=== PATIENT | female | born 1935 | race Caucasian/White ===

== ENCOUNTER 2018-02-25 09:28 | Day surgery (SDC) | payer OTHER ==
[2018-02-25] MEDS ORDERED: HEPARIN 500 UNIT/5 ML SYR IV ONE (09:41)
== END 2018-02-25 10:30 | disposition home or self-care (01) ==
LOC: DS 09:28
PROVIDERS: ATTEND Internal Medicine
DX: Z45.2 Encounter for adjustment and management of vascular access device (principal); C50.919 Malignant neoplasm of unspecified site of unspecified female breast
CPT/HCPCS: 96523; J1642

== ENCOUNTER 2018-05-27 09:35 | Day surgery (SDC) | payer OTHER ==
--- OUTSIDE RECORDS SUMMARY | 2018-05-27 09:43 | XMS REPORT | Clinical Summary ---
:1935 Author Organization [facility] Address [address] [place] [address] Care Team Providers Name Role Phone Asked, No Pcp Primary Care Provider Unavailable Allergies No Known Allergies Current Medications Prescription Sig. Disp. Refills Start Date End Date Status ANASTROZOLE ORAL Take by mouth. Active diazepam (VALIUM) 5 MG Take 5 mg by mouth Active tablet every 6 (six) hours as needed for anxiety. lisinopril Take 20 mg by mouth Active (PRINIVIL,ZESTRIL) 20 MG daily. tablet metFORMIN XR Take 500 mg by mouth Active (GLUCOPHATE-XR) 500 MG daily with 24 hr tablet breakfast. simvastatin (ZOCOR) 40 Take 40 mg by mouth Active MG tablet nightly. gabapentin (NEURONTIN) Take 300 mg by mouth Active 300 MG capsule 3 (three) times a day. traMADol (ULTRAM) 50 mg Take 50 mg by mouth Active tablet every 6 (six) hours as needed for moderate pain. diltiazem CD (CardIZEM Take 240 mg by mouth Active CD) 240 MG 24 hr capsule daily. LORATADINE (CLARITIN Take by mouth. Active ORAL) ERGOCALCIFEROL, VITAMIN Take by mouth. Active D2, (VITAMIN D2 ORAL) IBUPROFEN (ADVIL ORAL) Take by mouth. Active aspirin (ECOTRIN) 81 MG Take 81 mg by mouth Active enteric coated tablet daily. simvastatin (ZOCOR) 40 TAKE 1 TABLET BY 3 02/14/2016 Active MG tablet MOUTH AT BEDTIME. anastrozole (ARIMIDEX) 1 Take 1 mg by mouth 3 03/17/2016 Active mg chemo tablet once daily. calcitonin, salmon, INHALE 1 (ONE) 0 04/02/2016 Active (MIACALCIN) 200 SOLUTION, NASAL, unit/actuation nasal DAILY. spray lisinopril-hydrochloroth Take 1 tablet by 3 02/05/2016 Active iazide mouth 2 (two) times (PRINZIDE,ZESTORETIC) a day. 20-25 mg per tablet naproxen (NAPROSYN) 500 Take 500 mg by mouth 0 03/12/2016 Active MG tablet 2 (two) times a day as needed. tramadol-acetaminophen Take 1 tablet by 0 04/02/2016 Active (ULTRACET) 37.5-325 mg mouth 3 (three) per tablet times a day as needed. Active Problems No known active problems Social History Tobacco Use Types Packs/Day Years Used Date Never Smoker Alcohol Use Drinks/Week oz/Week Comments No Sex Assigned at Date Recorded Not on file Last Filed Vital Signs Not on file Plan of Treatment Health Maintenance Due Date Last Done Comments SHINGRIX VACCINE (#1) 1985 ZOSTER VACCINE 1995 PNEUMOCOCCAL POLYSACCHARIDE VACCINE AGE 65 AND OVER 2000 PNEUMOCOCCAL-13 2000 INFLUENZA VACCINE 03/17/2018 Results Not on fileafter 05/26/2017 Insurance Payer Benefit Plan / Group Subscriber ID Type Phone Address MEDICARE MEDICARE PART A AND B xxxxxxxxxx Medicare [facility] [place] [place] xxxxxxxxx Commercial Home: [facility] TAMIE LIZ [phone] [place], [place] [phone]
--- OUTSIDE RECORDS SUMMARY | 2018-05-27 09:45 | XMS REPORT | Continuity of Care Document ---
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 ejection fraction for breast cancer. 07/29 - [facility] resting NM resting NM /2012 - [facility] COMPARISON: None. Read by: Maxime Mace Dictated Date/time: 07/29/13 12:26 Electronically Signed by: Maxime Mace MD 07/29/13 12:28 FINAL REPORT TECHNIQUE: After radiolabeling the patient's red blood cells with 25 mCi of Tc 99m pertechnetate using an Ultra-Tag kit, the radiolabeled red blood cells were reinjected into patient. Gated images of the heart were obtained in the left anterior oblique projection. Time/ activity curve was subsequently generated. Ejection fraction was calculated with computer assistance. Wall motion was assessed. FINDINGS: There is normal ventricular wall motion and function with normal appearing amplitude, phase, and the paradox motion assessment. Ejection fraction is within normal limits at 59%. IMPRESSION: Normal left ventricular wall motion and function with estimated ejection fraction of 59% Chemistry BUN 32 mg/dL 7 - 25 02/23 [facility] Chemistry CREATININE 2.25 mg/dL 0.60 - 02/23 MH 0.93 /2012 [facility] Chemistry BUN/CREAT 14 (calc) 6 - 22 02/23 [facility] Chemistry SODIUM 135 mmol/L 135 - 146 02/23 [facility] Chemistry POTASSIUM 4.7 mmol/L 3.5 - 5.3 02/23 [facility] Chemistry CALCIUM 9.3 mg/dL 8.6 - 10.4 02/23 [facility] Chemistry SODIUM 138 mmol/L 12/10 [facility] Chemistry POTASSIUM 4.2 mmol/L 12/10 [facility] Chemistry HGBA1C 6.9 % 12/10 [facility] Chemistry BUN 27 mg/dL 12/10 [facility] Chemistry CREATININE 1.04 mg/dL 12/10 [facility] Chemistry SGOT (AST) 16 U/L 12/10 [facility] Chemistry SGPT (ALT) 16 U/L 12/10 [facility] Chemistry ALK PHOS 98 U/L 12/10 [facility] Hematology HCT 36.0 % 12/10 [facility] Hematology HGB 12.1 g/dL 12/10 [facility] Hematology PLATELETS 238 /mm3 12/10 [facility] Chemistry CHOLESTEROL 130 mg/dl 125 - 200 11/08 [facility] Chemistry HDL 39 mg/dl >=46 11/08 [facility] Chemistry TRIGLYCERIDE 126 mg/dl - 150 11/08 [facility] Chemistry LDL 66 MG/DL - 130 11/08 (CALC) Medical mg/dl Group Chemistry BUN 19 mg/dL - 11/08 [facility] Chemistry CREATININE 0.93 mg/dL 0.60 - 11/08 MH 0.93 [facility] Chemistry BUN/CREAT NOT 6 - 11/08 Medical (calc) Group Chemistry SODIUM 138 mmol/L 135 - 146 11/08 [facility] Chemistry POTASSIUM 4.7 mmol/L 3.5 - 5.3 11/08 [facility] Chemistry CALCIUM 10.1 mg/dL 8.6 - 10.4 11/08 [facility] Chemistry ALBUMIN 4.3 g/dL 3.6 - 5.1 11/08 [facility] Chemistry ALK PHOS 110 U/L 33 - 130 11/08 [facility] Chemistry SGOT (AST) 14 U/L 10 - 35 11/08 [facility] Chemistry SGPT (ALT) 16 U/L 6 - 40 11/08 [facility] Chemistry HGBA1C 7.1 % OF - 5.7 11/08 TOTAL HGB Medical % Group Chemistry SGPT (ALT) 21 U/L 0 - 40 04/10 [facility] Chemistry BUN 16 mg/dL 8 - 04/10 [facility] Chemistry CREATININE 0.80 mg/dL 0.57 - 04/10 MH 1.00 [facility] Chemistry BUN/CREAT 20 - 04/10 [facility] Chemistry SODIUM 139 mmol/L 134 - 144 04/10 [facility] Chemistry POTASSIUM 4.2 mmol/L 3.5 - 5.2 04/10 [facility] Chemistry CALCIUM 9.7 mg/dL 8.6 - 10.2 04/10 [facility] Chemistry ALBUMIN 4.2 g/dL 3.5 - 4.8 04/10 [facility] Chemistry ALK PHOS 124 U/L 25 - 165 04/10 [facility] Chemistry SGOT (AST) 19 U/L 0 - 40 04/10 [facility] Chemistry CHOLESTEROL 135 mg/dl 100 - 199 04/10 [facility] Chemistry TRIGLYCERIDE 115 mg/dl 0 - 149 04/10 [facility] Chemistry HDL 44 mg/dl >39 04/10 [facility] Chemistry VLDL 230.0 mg/l 04/10 [facility] Chemistry LDL 68 mg/dl 0 - 99 04/10 [facility] Chemistry HGBA1C 6.3 % 04/03 [facility] Chemistry CHOLESTEROL 180 mg/dl 10/10 [facility] Chemistry HDL 50 mg/dl 10/10 [facility] Chemistry LDL 98 mg/dl 10/10 [facility] Chemistry TRIGLYCERIDE 162 mg/dl 10/10 [facility] Chemistry ALBUMIN 4.5 g/dL 10/10 [facility] Chemistry SGPT (ALT) 19 U/L 10/10 [facility] Chemistry SGOT (AST) 15 U/L 10/10 [facility] Chemistry ALK PHOS 119 U/L 10/10 [facility] Chemistry BUN 15 mg/dL 10/10 [facility] Chemistry CREATININE 0.92 mg/dL 10/10 [facility] Chemistry POTASSIUM 4.4 mmol/L 10/10 [facility] Chemistry HGBA1C 6.6 % 10/10 [facility] Chemistry CALCIUM 10.3 mg/dL 10/10 [facility] Chemistry CHOLESTEROL 193 mg/dl 04/04 [facility] Chemistry HDL 48 mg/dl 04/04 [facility] Chemistry LDL 116 mg/dl 04/04 [facility] Chemistry TRIGLYCERIDE 143 mg/dl 04/04 [facility] Chemistry ALBUMIN 6.6 g/dL 04/04 [facility] Chemistry SGPT (ALT) 16 U/L 04/04 [facility] Chemistry SGOT (AST) 13 U/L 04/04 [facility] Chemistry ALK PHOS 125 U/L 04/04 [facility] Chemistry BUN 20 mg/dL 04/04 [facility] Chemistry CREATININE 0.91 mg/dL 04/04 [facility] Chemistry POTASSIUM 5.0 mmol/L 04/04 [facility] Chemistry CALCIUM 9.7 mg/dL 04/04 [facility] Chemistry CHOLESTEROL 178 mg/dl 06/06 [facility] Chemistry HDL 54 mg/dl 06/06 [facility] Chemistry LDL 98 mg/dl 06/06 [facility] Chemistry TRIGLYCERIDE 130 mg/dl 06/06 [facility] Chemistry ALBUMIN 4.0 g/dL 06/06 [facility] Chemistry SGPT (ALT) 16 U/L 06/06 [facility] Chemistry SGOT (AST) 17 U/L 06/06 [facility] Chemistry ALK PHOS 102 U/L 06/06 [facility] Chemistry BUN 14 mg/dL 06/06 [facility] Chemistry CREATININE 0.94 mg/dL 06/06 [facility] Chemistry POTASSIUM 4.0 mmol/L 06/06 [facility] Chemistry CALCIUM 9.8 mg/dL 06/06 [facility] Vital Signs Vital Sign Value Date Comments Source Weight 63.636 02/15/2018 [facility] Height 157.48 cm 02/15/2018 [facility] BMI Calculated 25.66 02/15/2018 [facility] Systolic (mm Hg) 108 02/15/2018 [facility] Diastolic (mm Hg) 60 02/15/2018 [facility] Weight 64.545 07/17/2017 [facility] BMI Calculated 25.21 07/17/2017 [facility] Height 160.02 cm 07/17/2017 [facility] Systolic (mm Hg) 140 07/17/2017 [facility] Diastolic (mm Hg) 76 07/17/2017 [facility] Systolic (mm Hg) 146 05/16/2016 [facility] Diastolic (mm Hg) 77 05/16/2016 [facility] Respitory Rate 18 05/16/2016 [facility] Respitory Rate 20 05/16/2016 [facility] Systolic (mm Hg) 134 05/16/2016 [facility] Diastolic (mm Hg) 55 05/16/2016 [facility] Respitory Rate 20 05/16/2016 [facility] Systolic (mm Hg) 155 05/16/2016 [facility] Diastolic (mm Hg) 56 05/16/2016 [facility] Heart Rate 84 05/16/2016 [facility] BMI Calculated 25.38 05/16/2016 [facility] Weight 65 05/16/2016 [facility] Height 160.02 cm 05/16/2016 [facility] Height 160.02 cm 05/15/2016 [facility] Weight 66.364 05/15/2016 [facility] BMI Calculated 25.92 05/15/2016 [facility] Heart Rate 75 05/15/2016 [facility] BMI Calculated 27.51 11/21/2015 [facility] Weight 70.455 11/21/2015 [facility] Height 160.02 cm 11/21/2015 [facility] Weight 155 11/22/2014 [facility] Systolic (mm Hg) 130 11/22/2014 [facility] Diastolic (mm Hg) 70 11/22/2014 [facility] Heart Rate 88 11/22/2014 [facility] Weight 149 05/24/2014 [facility] Systolic (mm Hg) 116 05/24/2014 [facility] Diastolic (mm Hg) 89 05/24/2014 [facility] Heart Rate 68 05/24/2014 [facility] Systolic (mm Hg) 125 05/23/2014 [facility] Respitory Rate 18 05/23/2014 [facility] Diastolic (mm Hg) 69 05/23/2014 [facility] Heart Rate 89 05/23/2014 [facility] Height 165.1 cm 05/23/2014 [facility] Weight 68.182 05/23/2014 [facility] BMI Calculated 25.01 05/23/2014 [facility] Respitory Rate 17 05/23/2014 [facility] Heart Rate 108 05/23/2014 [facility] Temperature Oral (F) 97.9 F 05/23/2014 [facility] Systolic (mm Hg) 137 05/23/2014 [facility] Diastolic (mm Hg) 76 05/23/2014 [facility] Diastolic (mm Hg) 76 05/23/2014 [facility] Systolic (mm Hg) 137 05/23/2014 [facility] Heart Rate 108 05/23/2014 [facility] Respitory Rate 18 05/23/2014 [facility] Temperature Oral (F) 98.6 F 05/23/2014 [facility] Weight 146 11/09/2013 [facility] Systolic (mm Hg) 140 11/09/2013 [facility] Diastolic (mm Hg) 72 11/09/2013 [facility] Heart Rate 76 11/09/2013 [facility] Weight 153 05/11/2013 [facility] Systolic (mm Hg) 140 05/11/2013 [facility] Diastolic (mm Hg) 77 05/11/2013 [facility] Heart Rate 76 05/11/2013 [facility] Weight 176 10/18/2012 [facility] Systolic (mm Hg) 160 10/18/2012 [facility] Diastolic (mm Hg) 84 10/18/2012 [facility] Heart Rate 80 10/18/2012 [facility] Weight 177 04/09/2012 [facility] Systolic (mm Hg) 130 04/09/2012 [facility] Diastolic (mm Hg) 50 04/09/2012 [facility] Heart Rate 66 04/09/2012 [facility] Weight 181 04/11/2011 [facility] Systolic (mm Hg) 124 04/11/2011 [facility] Diastolic (mm Hg) 70 04/11/2011 [facility] Heart Rate 71 04/11/2011 [facility] Weight 181 10/10/2010 [facility] Height 65 10/10/2010 [facility] Systolic (mm Hg) 124 10/10/2010 [facility] Diastolic (mm Hg) 70 10/10/2010 [facility] Heart Rate 68 10/10/2010 [facility] Weight 176 04/03/2010 [facility] Systolic (mm Hg) 126 04/03/2010 [facility] Diastolic (mm Hg) 70 04/03/2010 [facility] Heart Rate 84 04/03/2010 [facility] Encounters Location Location Encounter Encounter Reason Attending ADM DC Status Source Details Type Number For Provider Date Date Visit Inpatient [id number] LEFT LEXII 12/01 12/02 Active [facility] 1 BREAST YOUSIF /2012 [facility] CANCER [facility] . OD [id number] V67.2 - JUANPABLO MARTIN 07/29 Active [facility] 6 CHEMOTHE [facility] 174.2 - MAL TY BREAST TO [id number] LYMPHEDE CHRIST TAHIRA 08/03 Active [facility] 2 [facility] Outpt Diag [id number] Juanpablo Martin 11/25 11/26 [facility] Outpatient Services [facility] EC [id number] Diana 05/23 05/23 [facility] 4 [facility] Office [id number] Lauro Lopez, 05/24 05/24 [place] Visit 10[address] [facility] [id number] Lauro Lopez, 11/22 11/22 [place] Visit 24898 [facility] Outpatient [id number] CARDIOVASCU 05/24 Active [facility] 1 LAR [place] VISIT Outpatient [id number] LAURO LOPEZ 05/30 Active [facility] [id number] Lauro Lopez 11/20 11/21 [place] [facility] Outpatient [id number] LAURO LOPEZ 12/11 Active [facility] Out[facility] Diag [id number] Juanpablo Martin 05/02 05/03 [facility] Outpatient Services [facility] Outpt Diag [id number] Geovanni 05/05 05/06 [facility] Outpatient Services [facility] Outpatient [id number] GEOVANNI 05/16 Active [facility] [id number] Juanpablo Martin 05/16 05/17 [facility] Outpatient [id number] GEOVANNI 06/11 Active [facility] [place] Outpatient [id number] LAURO LOPEZ 06/11 Active [facility] [id number] GÉNESIS 07/08 Active [facility] 8 [place] IS Outpatient [id number] CARDIOVASCU 11/07 [facility] 1 LAR [place] VISIT Outpatient [id number] CARDIOVASCU 12/12 [facility] 0 LAR [place] VISIT Outpatient [id number] LAURO LOPEZ 12/17 Active [facility] Outpatient [id number] LAURO LOPEZ 12/19 Active [facility] [place] Outpatient [id number] GÉNESIS 01/01 Active [facility] 3 CONSTANCE- [facility] IS Outpatient [id number] LAURO LOPEZ 01/09 Active [facility] Outpatient [id number] Juanpablo Martin 01/09 01/10 [facility] Outpatient [facility] Phone [id number] 07/02 07/04 Cardiology Message [facility] Phone [id number] 07/03 07/05 Cardiology Message [facility] Outpatient [id number] LAURO LOPEZ 07/17 Active [facility] [id number] Lauro Lopez 07/17 07/18 Cardiology [facility] Phone [id number] 08/25 08/27 Cardiology Message [facility] Outpatient [id number] CARDIOVASCU 01/15 [facility] 5 LAR [place] VISIT Outpatient [id number] LAURO LOPEZ 01/15 Active [id number] 01/15 01/15 Cardiology Pre-Reg [facility] Ambulatory [id number] Lauro Lopez 01/15 01/15 Cardiology Pre-Reg [facility] Outpatient [id number] CARDIOVASCU 02/15 [facility] [place] 7 LAR [place] VISIT Outpatient [id number] LAURO LOPEZ 02/15 Active [facility] Outpatient [id number] 02/15 02/16 Cardiology [facility] Outpatient [id number] Lauro Lopez 02/15 02/16 Cardiology [facility] Outpatient [id number] LAURO LOPEZ 07/19 [facility] [place] Procedures Procedure Code Date Perfomer Comments Source smoking/tobacco 14 yes Medical cessation, patient 5 Group education and counseling smoking/tobacco 14 yes Medical cessation, patient 4 Group education and counseling smoking/tobacco 14 Smokinng Medical cessation, patient 4 Cessation Group education and Handout Provided counseling Mastectomy bilateral [id number] Medical with right lymph 3 Group node biopsy Mastectomy bilateral [id number] [facility] with right lymph 3 [facility] node biopsy Mastectomy bilateral [id number] [facility] with right lymph 3 [place] node biopsy Mastectomy bilateral [id number] [facility] with right lymph 3 City node biopsy Mastectomy bilateral [id number] [facility] with right lymph 3 Medical node biopsy Center Nuclear medicine [id number] Medical cardiovascular study 9 Group Appendectomy [id number] Medical Group Bilateral mastectomy [id number] Medical Group Bladder<sup>1</sup> [id number] Bladder Medical suspension Group Breast biopsy and [id number] Medical related procedures Group Cholecystectomy [id number] Medical Group Colon [id number] Cautery of bleed Medical operation<sup>2</sup Group > Colonoscopy<sup>3</s 24301203 times several Medical up> Group Echocardiogram<sup>4 [id number] November 07, 2016 Medical </sup> Normal LV size and function Group LV hypertrophy 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 m/s with mean gradient of 25 and valve area 0.7 Diastolic dysfunction Hernia repair [id number] [facility] Hysterectomy [id number] Medical [facility] Teeth [id number] dental implant Medical operation<sup>5</sup Group > Tonsillectomy and 25445059 Medical adenoidectomy Group Vaginal delivery [id number] Medical [facility] Appendectomy [id number] [facility] Bilateral mastectomy [id number] [facility] Bladder<sup>1</sup> [id number] Bladder [facility] suspension [facility] Breast biopsy and [id number] [facility] related procedures [facility] Cholecystectomy [id number] [facility] Colon [id number] Cautery of bleed [facility] operation<sup>2</sup [facility] > Colonoscopy<sup>3</s 62482061 times several [facility] up> [facility] Echocardiogram<sup>4 [id number] November 07, 2016 [facility] </sup> Normal LV size and function [facility] LV hypertrophy 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 m/s with mean gradient of 25 and valve area 0.7 Diastolic dysfunction Hernia repair [id number] [facility] Hysterectomy [id number] [facility] Teeth [id number] dental implant [facility] operation<sup>5</sup [place] > Tonsillectomy and 40131318 [facility] adenoidectomy [facility] Vaginal delivery [id number] [facility] Teeth [id number] dental implant [facility] operation<sup>4</sup [place] > Appendectomy [id number] [facility] [place] Bilateral mastectomy [id number] [facility] Bladder<sup>1</sup> [id number] Bladder [facility] suspension [place] Breast biopsy and [id number] [facility] related procedures [place] Cholecystectomy [id number] [facility] Colon [id number] Cautery of bleed [facility] operation<sup>2</sup [facility] > Colonoscopy<sup>3</s 34962388 times several [facility] up> [place] Hernia repair [id number] [facility] [place] Hysterectomy [id number] [facility] [place] Teeth [id number] dental implant [facility] operation<sup>4</sup [facility] > Tonsillectomy and 90260450 [facility] adenoidectomy [facility] Vaginal delivery [id number] O[facility] [place] Appendectomy [id number] [facility] Bilateral mastectomy [id number] [facility] Bladder<sup>1</sup> [id number] Bladder [facility] Breast biopsy and [id number] [facility] related procedures [facility] Cholecystectomy [id number] [facility] Colon [id number] Cautery of bleed [facility] operation<sup>2</sup City > Colonoscopy<sup>3</s 21075836 times several [facility] Hernia repair [id number] [facility] Hysterectomy [id number] [facility] Teeth [id number] dental implant [facility] operation<sup>4</sup City > Tonsillectomy and [id number] [facility] adenoidectomy [facility] Vaginal delivery [id number] [facility] Appendectomy [id number] [facility] Bilateral mastectomy [id number] [facility] Bladder<sup>1</sup> [id number] Bladder [facility] Breast biopsy and [id number] [facility] related procedures [facility] Cholecystectomy [id number] [facility] Colon [id number] Cautery of bleed [facility]<sup>2</sup Medical > Center Colonoscopy<sup>3</s 83954855 times several [facility] Hernia repair [id number] [facility] Hysterectomy [id number] [facility] Teeth [id number] dental implant [facility] operation<sup>4</sup Medical > [place] Tonsillectomy and [id number] [facility] adenoidectomy [facility] Vaginal delivery [id number] [facility]
--- OUTSIDE RECORDS SUMMARY | 2018-05-27 09:46 | XMS REPORT | CCD ---
:1935 Author Organization [facility] Team Providers Name Role Phone Toy Trujillo Consulting Provider Allergies, Adverse Reactions, Alerts Substance Reaction Status NKDA Active NKFA Active Problem List Condition Effective Dates Status Angina Active Breast ca Active Breast cancer Active Diabetes mellitus Active [place] - Hard of hearing Active Hyperlipidemia Active Hypertension Active MRSA1, 2 02/06/2013 Active Murmur Active UTI - Urinary tract infection Resolved MRSA isolated from breast [id number] added by Discern Expert.
--- OUTSIDE RECORDS SUMMARY | 2018-05-27 09:46 | XMS REPORT | CCD ---
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
--- OUTSIDE RECORDS SUMMARY | 2018-05-27 09:46 | XMS REPORT | CCD ---
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
--- OUTSIDE RECORDS SUMMARY | 2018-05-27 09:47 | XMS REPORT | Continuity of Care Document ---
:[address] [facility] Care Team Providers Name Role Phone MD Arie, Lázaro Unavailable Unavailable Insurance Providers Payer name Policy type / Policy ID Covered democrat ID Policy Nunez Coverage type [place]: link bird [employer] (MEDICARE SUPPLEMENT) [employer] (MEDICARE SUPPLEMENT) MEDICARE B-[place]: NOVITAS [employer] MEDICARE B-[place]: RMIITAS [employer] MEDICARE B-[place]: [employer] Encounters Encounter Performer Location Date Office Visit Lázaro Sargent MD [facility] Nov 22, 2014 Cardiology Problems Problem Effective Dates Problem Status HYPERTENSION Active HYPERLIPIDEMIA Active C O P D Active DIABETES, TYPE 2 Active VITAMIN D DEFICIENCY Active BREAST CANCER Nov 09, 2012 Active HEMATURIA, HX OF May 11, 2013 Active RENAL INSUFFICIENCY May 11, 2013 Active CAD May 11, 2013 Active LONG-TERM (CURRENT) USE OF OTHER MEDICATIONS Active PERIPHERAL NEUROPATHY Nov 09, 2013 Active BLADDER CANCER Nov 09, 2013 Active BLADDER CANCER Nov 09, 2013 Inactive 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, 2014 Active Procedures Date Description Comments Apr 09, 2012 smoking status former smoker May 11, 2013 smoking status former smoker Nov 09, 2013 smoking status former smoker Nov 09, 2013 smoking/tobacco cessation, patient Smokinng Cessation Handout Provided education and counseling May 24, 2014 smoking status Former smoker May 24, 2014 smoking/tobacco cessation, patient yes education and counseling Nov 22, 2014 smoking status Former smoker Nov 22, 2014 smoking/tobacco cessation, patient yes education and counseling Medications Medication Instructions Start Date Status DILTIAZEM HCL CR 240 MG [id number] TAKE ONE TABLET ONCE A DAY Apr 09, 2012 Active VALIUM 5 MG TABS TAKE ONE TABLET DAILY Apr 09, 2012 Active NEEDED NITROSTAT 0.4 MG SUBL TAKE DIRECTED AND NEEDED Apr 09, 2012 Active FOR CHEST PAIN ASPIRIN EC 81 MG TBEC i po qd Apr 09, 2012 Active LISINOPRIL-HYDROCHLOROTHIAZIDE ONE PO BID Mar 30, 2012 Inactive 20-25 MG TABS NAPROSYN 375 MG TABS TAKE 1 TABLET BY MOUTH TWICE Apr 09, 2012 Inactive DAILY NEEDED CATAPRES 0.1 MG TABS 1 po qd Oct 18, 2012 Inactive VITAMIN D3 2000 UNIT TABS three po qd Apr 20, 2013 Active ADVIL po prn Apr 20, 2013 Active LEVAQUIN 250 MG TABS as directed prior to biopsies Apr 20, 2013 Active GABAPENTIN 300 MG CAPS ONE PO QPM Oct 17, 2013 Active CATAPRES 0.1 MG TABS ONE PO PRN BP> 160 Oct 17, 2013 Active ARIMIDEX 1 MG TABS one tablet daily May 17, 2014 Active ZOCOR 40 MG TABS one po qhs Feb 17, 2012 Active LISINOPRIL-HYDROCHLOROTHIAZIDE ONE PO TWICE Oct 17, 2013 Active 20-25 MG TABS PHENAZOPYRIDINE HCL 100 MG TABS one po tid Apr 27, 2013 Inactive TRIAZOLAM 0.25 MG TABS one po qhs Apr 20, 2013 Inactive METFORMIN HCL 500 MG TABS ONE PO bid Oct 17, 2013 Active HYDROCODONE-ACETAMINOPHEN 7.5-325 one po q4-6 hrs prn Apr 20, 2013 Inactive MG TABS Vital Signs Date Description Test Result Apr 11, 2011 weight E&Herbert - 3141-9 WEIGHT 181 lb Apr 11, 2011 blood pressure, systolic, sitting, left arm BP SYS SIT L 124 mm Hg Apr 11, 2011 blood pressure, diastolic, sitting, left arm BP MARIE SIT L 70 mm Hg Apr 11, 2011 pulse rate E&M - 8867-4 PULSE RATE 71 /min Oct 10, 2010 weight E&Herbert - 3141-9 WEIGHT 181 lb Oct 10, 2010 height E&M - 8302-2 HEIGHT 65 in Oct 10, 2010 blood pressure, systolic, sitting, left arm BP SYS SIT L 124 mm Hg Oct 10, 2010 blood pressure, diastolic, sitting, left arm BP MARIE SIT L 70 mm Hg Oct 10, 2010 pulse rate E&M - 8867-4 PULSE RATE 68 /min Apr 03, 2010 weight E&M - 3141-9 WEIGHT 176 lb Apr 03, 2010 blood pressure, systolic, sitting, left arm BP SYS SIT L 126 mm Hg Apr 03, 2010 blood pressure, diastolic, sitting, left arm BP MARIE SIT L 70 mm Hg Apr 03, 2010 pulse rate E&M - 8867-4 PULSE RATE 84 /min Apr 09, 2012 weight E&Herbert - 3141-9 WEIGHT 177 lb Apr 09, 2012 blood pressure, systolic, sitting, left arm BP SYS SIT L 130 mm Hg Apr 09, 2012 blood pressure, diastolic, sitting, left arm BP MARIE SIT L 50 mm Hg Apr 09, 2012 pulse rate E&M - 8867-4 PULSE RATE 66 /min Apr 09, 2012 blood pressure, systolic, sitting, right arm BP SYS SIT R 116 null Apr 09, 2012 blood pressure, diastolic, sitting, right arm BP MARIE SIT R 52 mmHg Oct 18, 2012 weight E&M - 3141-9 WEIGHT 176 lb Oct 18, 2012 blood pressure, systolic, sitting, right arm BP SYS SIT R 160 null Oct 18, 2012 blood pressure, diastolic, sitting, right arm BP MARIE SIT R 84 mmHg Oct 18, 2012 blood pressure, systolic - 8480-6 BP SYSTOLIC 160 mm Hg Oct 18, 2012 blood pressure, diastolic - 8462-4 BP DIASTOLIC 84 mm Hg Oct 18, 2012 blood pressure, systolic, sitting, left arm BP SYS SIT L 160 mm Hg Oct 18, 2012 blood pressure, diastolic, sitting, left arm BP MARIE SIT L 82 mm Hg Oct 18, 2012 pulse rate, sitting, right PULSE SIT R 80 /min Oct 18, 2012 pulse rate E&M - 8867-4 PULSE RATE 80 /min May 11, 2013 weight E&M - 3141-9 WEIGHT 153 lb May 11, 2013 blood pressure, systolic, sitting, left arm BP SYS SIT L 140 mm Hg May 11, 2013 blood pressure, diastolic, sitting, left arm BP MARIE SIT L 77 mm Hg May 11, 2013 pulse rate, sitting, left PULSE SIT L 76 /min May 11, 2013 blood pressure, systolic - 8480-6 BP SYSTOLIC 140 mm Hg May 11, 2013 pulse rate E&M - 8867-4 PULSE RATE 76 /min May 11, 2013 blood pressure, diastolic - 8462-4 BP DIASTOLIC 77 mm Hg Nov 09, 2013 weight E&M - 3141-9 WEIGHT 146 lb Nov 09, 2013 blood pressure, systolic, sitting, left arm BP SYS SIT L 140 mm Hg Nov 09, 2013 blood pressure, diastolic, sitting, left arm BP MARIE SIT L 72 mm Hg Nov 09, 2013 pulse rate, sitting, left PULSE SIT L 76 /min Nov 09, 2013 blood pressure, systolic - 8480-6 BP SYSTOLIC 140 mm Hg Nov 09, 2013 pulse rate E&M - 8867-4 PULSE RATE 76 /min Nov 09, 2013 blood pressure, diastolic - 8462-4 BP DIASTOLIC 72 mm Hg May 24, 2014 weight E&M - 3141-9 WEIGHT 149 lb May 24, 2014 blood pressure, systolic, sitting, left arm BP SYS SIT L 116 mm Hg May 24, 2014 blood pressure, diastolic, sitting, left arm BP MARIE SIT L 89 mm Hg May 24, 2014 pulse rate, sitting, left PULSE SIT L 68 /min May 24, 2014 blood pressure, systolic - 8480-6 BP SYSTOLIC 116 mm Hg May 24, 2014 pulse rate E&M - 8867-4 PULSE RATE 68 /min May 24, 2014 blood pressure, diastolic - 8462-4 BP DIASTOLIC 89 mm Hg Nov 22, 2014 weight E&M - 3141-9 WEIGHT 155 lb Nov 22, 2014 blood pressure, systolic, sitting, left arm BP SYS SIT L 130 mm Hg Nov 22, 2014 blood pressure, diastolic, sitting, left arm BP MARIE SIT L 70 mm Hg Nov 22, 2014 pulse rate, sitting, left PULSE SIT L 88 /min Nov 22, 2014 blood pressure, systolic - 8480-6 BP SYSTOLIC 130 mm Hg Nov 22, 2014 pulse rate E&M - 8867-4 PULSE RATE 88 /min Nov 22, 2014 blood pressure, diastolic - 8462-4 BP DIASTOLIC 70 mm Hg Results Date Description Test Name Value Reference Interpretation Status Dec 10, hematocrit, blood HCT 36.0 % 2012Dec 10, hemoglobin, blood HGB 12.1 g/dL 2012Dec 10, platelet count PLATELETS 238 /mm3 2012December 23, hematocrit, blood HCT 34.06 % 2013December 23, hemoglobin, blood HGB 11.40 g/dL 2013December 23, platelet count PLATELETS 205 /mm3 2013Dec 02, hematocrit, blood HCT 36.28 % 2013Dec 02, hemoglobin, blood HGB 12.11 g/dL 2013Dec 02, platelet count PLATELETS 196 /mm3 2013Apr 03, hemoglobin A1C, HGBA1C 6.3 % 2010 blood, as % of total hemoglobin Oct 10, cholesterol, serum CHOLESTEROL 180 mg/dl 2010Oct 10, HDL cholesterol, HDL 50 mg/dl 2010 serum Oct 10, LDL cholesterol, LDL 98 mg/dl 2010 serum Oct 10, triglyceride, TRIGLYCERIDE 162 mg/dl 2010 serum, fasting Oct 10, albumin, serum ALBUMIN 4.5 g/dL 2010Oct 10, alanine SGPT (ALT) 19 U/L 2010 aminotransferase (SGPT), serum Oct 10, aspartate SGOT (AST) 15 U/L 2010 aminotransferase (SGOT), serum Oct 10, alkaline ALK PHOS 119 U/L 2010 phosphatase, serum Oct 10, urea nitrogen, BUN 15 mg/dL 2010 blood Oct 10, creatinine, serum CREATININE 0.92 mg/dL 2010Oct 10, potassium, serum POTASSIUM 4.4 mmol/L 2010Oct 10, hemoglobin A1C, HGBA1C 6.6 % 2010 blood, as % of total hemoglobin Oct 10, calcium, serum CALCIUM 10.3 mg/dL 2010Apr 04, cholesterol, serum CHOLESTEROL 193 mg/dl 2009Apr 04, HDL cholesterol, HDL 48 mg/dl 2009 serum Apr 04, LDL cholesterol, LDL 116 mg/dl 2009 serum Apr 04, triglyceride, TRIGLYCERIDE 143 mg/dl 2009 serum, fasting Apr 04, albumin, serum ALBUMIN 6.6 g/dL 2009Apr 04, alanine SGPT (ALT) 16 U/L 2009 aminotransferase (SGPT), serum Apr 04, aspartate SGOT (AST) 13 U/L 2009 aminotransferase (SGOT), serum Apr 04, alkaline ALK PHOS 125 U/L 2009 phosphatase, serum Apr 04, urea nitrogen, BUN 20 mg/dL 2009 blood Apr 04, creatinine, serum CREATININE 0.91 mg/dL 2009Apr 04, potassium, serum POTASSIUM 5.0 mmol/L 2009Apr 04, calcium, serum CALCIUM 9.7 mg/dL 2009Jun 06, cholesterol, serum CHOLESTEROL 178 mg/dl 2007Jun 06, HDL cholesterol, HDL 54 mg/dl 2007 serum Jun 06, LDL cholesterol, LDL 98 mg/dl 2007 serum Jun 06, triglyceride, TRIGLYCERIDE 130 mg/dl 2007 serum, fasting Jun 06, albumin, serum ALBUMIN 4.0 g/dL 2007Jun 06, alanine SGPT (ALT) 16 U/L 2007 aminotransferase (SGPT), serum Jun 06, aspartate SGOT (AST) 17 U/L 2007 aminotransferase (SGOT), serum Jun 06, alkaline ALK PHOS 102 U/L 2007 phosphatase, serum Jun 06, urea nitrogen, BUN 14 mg/dL 2007 blood Jun 06, creatinine, serum CREATININE 0.94 mg/dL 2007Jun 06, potassium, serum POTASSIUM 4.0 mmol/L 2007Jun 06, calcium, serum CALCIUM 9.8 mg/dL 2007Apr 10, urea nitrogen, BUN 16 mg/dL 04-12 blood Apr 10, creatinine, serum CREATININE 0.80 mg/dL 0.57-1.00 2011Apr 10, urea BUN/CREAT 20 null -26 2011 nitrogen/creatinine ratio, serum Apr 10, sodium, serum SODIUM 139 mmol/L [phone] Apr 10, potassium, serum POTASSIUM 4.2 mmol/L 3.5-5.2 2011Apr 10, calcium, serum CALCIUM 9.7 mg/dL 8.6-10.2 2011Apr 10, albumin, serum ALBUMIN 4.2 g/dL 3.5-4.8 2011Apr 10, alkaline ALK PHOS 124 U/L 25-165 2011 phosphatase, serum Apr 10, aspartate SGOT (AST) 19 U/L 0-40 2011 aminotransferase (SGOT), serum Apr 10, alanine SGPT (ALT) 21 U/L 0-40 2011 aminotransferase (SGPT), serum Apr 10, cholesterol, serum CHOLESTEROL 135 mg/dl [phone] Apr 10, triglyceride, TRIGLYCERIDE 115 mg/dl 0-149 2011 serum, fasting Apr 10, HDL cholesterol, HDL 44 mg/dl >39 2011 serum Apr 10, very low density VLDL 230.0 mg/l Units 2011 lipoproteins converted. See lab report for original value. Apr 10, LDL cholesterol, LDL 68 mg/dl 0-99 2011 serum Nov 08, cholesterol, serum CHOLESTEROL 130 mg/dl 125-200 Normal 2012Nov 08, HDL cholesterol, HDL 39 mg/dl > OR=46 Low 2012 serum Nov 08, triglyceride, TRIGLYCERIDE 126 mg/dl <150 Normal 2012 serum, fasting Nov 08, LDL cholesterol, LDL 66 MG/DL <130 Normal 2012 serum (CALC) mg/dl Nov 08, urea nitrogen, BUN 19 mg/dL 7-25 Normal 2012 blood Nov 08, creatinine, serum CREATININE 0.93 mg/dL 0.60-0.93 Normal 2012Nov 08, urea BUN/CREAT NOT 6-22 2012 nitrogen/creatinine APPLICABLE ratio, serum (calc) null Nov 08, sodium, serum SODIUM 138 mmol/L 135-146 Normal 2012Nov 08, potassium, serum POTASSIUM 4.7 mmol/L 3.5-5.3 Normal 2012Nov 08, calcium, serum CALCIUM 10.1 mg/dL 8.6-10.4 Normal 2012Nov 08, albumin, serum ALBUMIN 4.3 g/dL 3.6-5.1 Normal 2012Nov 08, alkaline ALK PHOS 110 U/L 33-130 Normal 2012 phosphatase, serum Nov 08, aspartate SGOT (AST) 14 U/L 10-35 Normal 2012 aminotransferase (SGOT), serum Nov 08, alanine SGPT (ALT) 16 U/L 6-40 Normal 2012 aminotransferase (SGPT), serum Nov 08, hemoglobin A1C, HGBA1C 7.1 % OF <5.7 High 2012 blood, as % of TOTAL HGB % total hemoglobin Dec 10, sodium, serum SODIUM 138 mmol/L 2012Dec 10, potassium, serum POTASSIUM 4.2 mmol/L 2012Dec 10, hemoglobin A1C, HGBA1C 6.9 % 2012 blood, as % of total hemoglobin Dec 10, urea nitrogen, BUN 27 mg/dL 2012 blood Dec 10, creatinine, serum CREATININE 1.04 mg/dL 2012Dec 10, aspartate SGOT (AST) 16 U/L 2012 aminotransferase (SGOT), serum Dec 10, alanine SGPT (ALT) 16 U/L 2012 aminotransferase (SGPT), serum Dec 10, alkaline ALK PHOS 98 U/L 2012 phosphatase, serum Feb 23, urea nitrogen, BUN 32 mg/dL 7-25 High 2012 blood Feb 23, creatinine, serum CREATININE 2.25 mg/dL 0.60-0.93 High 2012Feb 23, urea BUN/CREAT 14 (calc) 6-22 Normal 2012 nitrogen/creatinine null ratio, serum Feb 23, sodium, serum SODIUM 135 mmol/L 135-146 Normal 2012Feb 23, potassium, serum POTASSIUM 4.7 mmol/L 3.5-5.3 Normal 2012Feb 23, calcium, serum CALCIUM 9.3 mg/dL 8.6-10.4 Normal 2012December 18, cholesterol, serum CHOLESTEROL 141 mg/dl 125-200 Normal 2013December 18, HDL cholesterol, HDL 48 mg/dl > OR=46 Normal 2013 serum December 18, triglyceride, TRIGLYCERIDE 177 mg/dl <150 High 2013 serum, fasting December 18, LDL cholesterol, LDL 58 MG/DL <130 Normal 2013 serum (CALC) mg/dl Nov 09, sodium, serum SODIUM 135 mmol/L 2013Nov 09, potassium, serum POTASSIUM 4.0 mmol/L 2013Nov 09, urea nitrogen, BUN 22 mg/dL 2013 blood Nov 09, creatinine, serum CREATININE 1.04 mg/dL 2013Nov 09, calcium, serum CALCIUM 9.9 mg/dL 2013Nov 09, aspartate SGOT (AST) 17 U/L 2013 aminotransferase (SGOT), serum Nov 09, alanine SGPT (ALT) 17 U/L 2013 aminotransferase (SGPT), serum
--- OUTSIDE RECORDS SUMMARY | 2018-05-27 09:47 | XMS REPORT ---
:1935 Author Organization [employer] Care Team Providers Name Role Phone Maxime Le Provider Role Unavailable Allergies, Adverse Reactions, Alerts Substance Reaction Event Type N.K.D.A. Info Not Available Non Drug Allergy Problems Problem Type Condition Code Onset Dates Condition Status Problem Primary osteoarthritis of left knee M17.12 Active Problem Acute pain of left knee M25.562 Active Problem Sciatica of left side M54.32 Active Assessment Sciatica of left side M54.32 Active Assessment Primary osteoarthritis of left knee M17.12 Active Assessment Acute pain of left knee M25.562 Active Medications Medication Code Code Instructions Start End Status Dosage System Date Date Anastrozole [facility] 62215710135 1 MG Oral Active TAKE 1 TABLET BY MOUTH EVERY DAY Tramadol HCl [facility] 24614899971 50 MG Oral Active (Schedule IV Drug) TAKE 1 TABLET (50 MG) BY MOUTH EVERY 8 HOURS NEEDED Loratadine [facility] 40547652416 10 MG Oral Active TAKE 1 TABLET BY MOUTH EVERY DAY Metformin HCl [facility] 65164108918 500 MG Oral Active TAKE 1 TABLET (500 MG) BY MOUTH 2 TIMES PER DAY WITH MEALS Simvastatin [facility] 89689656908 40 MG Oral Active TAKE 1 TABLET BY MOUTH AT BEDTIME Lisinopril-Hydr [facility] 59641823940 20-25 MG Oral Active TAKE 1 ochlorothiazide TABLET BY MOUTH TWICE A DAY Gabapentin [facility] 95761862157 300 MG Oral Active TAKE 1 CAPSULE BY MOUTH AT BEDTIME. Diltiazem HCl [facility] 84624084605 240 MG Oral Active TAKE ONE ER Beads CAPSULE BY MOUTH EVERY DAY Results No Known Results Summary Purpose [employer] Submission
--- OUTSIDE RECORDS SUMMARY | 2018-05-27 09:47 | XMS REPORT | Continuity of Care Document ---
:1935 Author Organization [facility] Care Team Providers Name Role Phone MD Arie, Lázaro Unavailable Unavailable Insurance Providers Payer name Policy type / Policy ID Covered alliance party ID Policy Nunez Coverage type MEDICARE [place]: [employer] (MEDICARE SUPPLEMENT) [employer] [place] (MEDICARE SUPPLEMENT) MEDICARE [place]: NOVITAS [employer] MEDICARE B-[place]: [employer] (PICA)ITAS [email or web address] MEDICARE B-[place]: Managed by Q Encounters Encounter Performer Location Date Office Visit Lázaro Sargent MD [facility] May 24, 2014 Cardiology Problems Problem Effective Dates Problem [...] Active BLADDER CANCER Nov 09, 2013 Inactive Procedures Date Description Comments Apr 09, 2012 smoking status former smoker May 11, 2013 smoking status former smoker Nov 09, 2013 smoking status former smoker Nov 09, 2013 smoking/tobacco cessation, patient Smokinng Cessation Handout Provided education and counseling May 24, 2014 smoking status Former smoker May 24, 2014 smoking/tobacco cessation, patient yes education and counseling Medications Medication Instructions Start Date Status ZOCOR 40 MG TABS one po qhs Feb 17, 2012 Active DILTIAZEM HCL CR 240 MG [id number] TAKE ONE TABLET ONCE A DAY Apr [...] ADVIL po prn Apr 20, 2013 Active HYDROCODONE-ACETAMINOPHEN 7.5-325 one po q4-6 hrs prn Apr 20, 2013 Active MG TABS PHENAZOPYRIDINE HCL 100 MG TABS one po tid Apr 27, 2013 Active LEVAQUIN 250 MG TABS as directed prior to biopsies Apr 20, 2013 Active TRIAZOLAM 0.25 MG TABS one po qhs Apr 20, 2013 Active GABAPENTIN 300 MG CAPS ONE PO QPM Oct 17, 2013 Active METFORMIN HCL 500 MG TABS ONE PO QD Oct 17, 2013 Active LISINOPRIL-HYDROCHLOROTHIAZIDE ONE PO TWICE Oct 17, 2013 Active 20-25 MG TABS CATAPRES 0.1 MG TABS ONE PO PRN BP> 160 Oct 17, 2013 Active ARIMIDEX 1 MG TABS one tablet daily May 17, 2014 Active Vital Signs Date Description Test Result Apr [...] RATE 84 /min Apr 09, 2012 weight E&M - 3141-9 WEIGHT 177 lb Apr 09, [...] - 8462-4 BP DIASTOLIC 89 mm Hg Results Date Description Test Name [...] 2007Apr 10, urea nitrogen, BUN 16 mg/dL -2011 blood Apr 10, creatinine, serum CREATININE 0.80 mg/dL 0.57-1.00 2011Apr 10, urea BUN/CREAT 20 null 11-26 2011 nitrogen/creatinine ratio, serum Apr 10, sodium, serum SODIUM 139 mmol/L [phone] Apr 10, potassium, serum POTASSIUM 4.2 mmol/L [...] Apr 10, cholesterol, serum CHOLESTEROL 135 mg/dl [phone] Apr 10, triglyceride, TRIGLYCERIDE 115 mg/dl 0-149 [...]
--- OUTSIDE RECORDS SUMMARY | 2018-05-27 09:48 | XMS REPORT ---
[...] End Status Dosage System Date Date Anastrozole [facility] 67336742928 1 MG Oral Active TAKE 1 TABLET BY MOUTH EVERY DAY Metformin HCl [facility] 27556842587 500 MG Oral Active TAKE 1 TABLET (500 MG) BY MOUTH 2 TIMES PER DAY WITH MEALS Tramadol HCl [facility] 37952534873 50 MG Oral Active (Schedule IV Drug) TAKE 1 TABLET (50 MG) BY MOUTH EVERY 8 HOURS NEEDED Loratadine [facility] 97056537470 10 MG Oral Active TAKE 1 TABLET BY MOUTH EVERY DAY Simvastatin [facility] 07647721545 40 MG Oral Active TAKE 1 TABLET BY MOUTH AT BEDTIME Lisinopril-Hydr [facility] 30956363066 20-25 MG Oral Active TAKE 1 ochlorothiazide TABLET BY MOUTH TWICE A DAY Gabapentin [facility] 57361691769 300 MG Oral Active TAKE 1 CAPSULE BY MOUTH AT BEDTIME. Diltiazem HCl [facility] 72703334617 240 MG Oral Active TAKE ONE ER Beads CAPSULE BY MOUTH EVERY DAY Results No Known Results Summary Purpose [employer] Submission
[2018-05-27] MEDS ORDERED: HEPARIN 500 UNIT/5 ML SYR IV ONE (10:24)
[2018-05-27 12:05] LABS: Urine Appearance CLOUDY; Urine Bilirubin NEGATIVE (NEG); Urine Blood NEGATIVE (NEG); Urine Color YELLOW; Urine Glucose NEGATIVE (NEG); Urine Protein TRACE (NEG); Urine Specific Gravity 1.015 (1.005-1.030); Urine Urobilinogen 0.2 mg/dL (0.2-1.0)
[2018-05-27 12:06] LABS: Urine Microscopic Reflex ORDER UMIC
[2018-05-27 12:16] LABS: Urine Bacteria 20-50 /HPF (<20); Urine Culture Reflex Order REFLEXED; Urine RBC <5 /HPF (NONE SEEN)
--- NOTE | 2018-05-27 12:26 | EKG ---
Test Date: 2018-05-27 Test Time: 10:50:02 [employer] Orientator: LUIS ALBERTO MEASUREMENT RESULTS: Intervals: Rate: 72 VA: 192 QRSD: 88 QT: 356 QTc: 389 [place]: P: 52 VA: 192 QRS: 61 T: 65 INTERPRETIVE STATEMENTS: Normal sinus rhythm Normal ECG No previous ECG available for comparison Electronically Signed On 05-27-18 12:25:17 CDT by Brian Mccall
== END 2018-05-27 11:00 | disposition home or self-care (01) ==
LOC: DS 09:35
PROVIDERS: ATTEND Internal Medicine
DX: Z45.2 Encounter for adjustment and management of vascular access device (principal); N39.0 Urinary tract infection, site not specified; C50.919 Malignant neoplasm of unspecified site of unspecified female breast; R79.1 Abnormal coagulation profile; Z01.818 Encounter for other preprocedural examination
CPT/HCPCS: 87086; 87088; 93005; 96523; J1642; 81003; 81015

== ENCOUNTER 2018-06-02 10:45 | Day surgery (SDC) | payer OTHER ==
[2018-05-27 12:06] LABS: Absolute Lymphocytes (CBC) 1.6 K/uL (0.7-4.9); Absolute Monocytes 1.1 K/uL (0.1-1.3); Absolute Neutrophil 9.7 K/uL (1.8-8.0); Basophils % 0.7 % (0-1.3); Eosinophils % 1.5 % (0-4.4); Hematocrit 34.6 % (36.0-45.0); Lymphocytes % 12.4 % (15.3-44.8); MCH 26.4 pg (27.0-35.0); MCV 78.7 fL (80-100); MPV 11.6 fL (7.6-11.3); Monocytes % 8.4 % (3.3-12.3)
[2018-05-27 12:09] LABS: Protime INR 1.08
[2018-05-27 12:32] LABS: Potassium 3.7 mmol/L (3.5-5.1)
--- NOTE | 2018-05-31 12:02 | RAD REPORT ---
EXAM DESCRIPTION: RAD - Chest Pa And Lat (2 Views) - 05/31/2018 11:55 am CLINICAL HISTORY: pre-op Chest pain. COMPARISON: No comparisons FINDINGS: Mild emphysematous changes are present throughout the lungs. Small to moderate hiatal zayda ia is seen. The heart is normal in size. No displaced fractures. Right-sided port catheter tip in SVC . Aortic atherosclerosis. Lower thoracic vertebral body vertebroplasty cement noted. IMPRESSION: No acute or concerning finding suspected.
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
--- OUTSIDE RECORDS SUMMARY | 2018-06-02 10:52 | XMS REPORT | CCD ---
:1935 Author Organization [facility] Team Providers Name Role Phone Toy Trujillo Consulting Provider Allergies, Adverse Reactions, Alerts Substance Reaction Status NKDA Active NKFA Active Problem List Condition Effective Dates Status Angina Active Breast ca Active Breast cancer Active Diabetes mellitus Active CADDO - Hard of hearing Active Hyperlipidemia Active Hypertension Active MRSA1, 2 02/06/2013 Active Murmur Active UTI - Urinary tract infection Resolved MRSA isolated from breast [id number] added by Discern Expert.
--- OUTSIDE RECORDS SUMMARY | 2018-06-02 10:52 | XMS REPORT | CCD ---
:1935 Author Organization [facility] Outpatient Imaging [facility] Care Team Providers Name Role Phone Juanpablo Martin Consulting Provider Allergies, Adverse Reactions, Alerts Substance Reaction Status NKDA Active NKFA Active Problem List Condition Effective Dates Status Angina Active Breast ca Active Breast cancer Active cervical fracture < 11/30/2012 Inactive COPD < 11/30/2012 Inactive Diabetes mellitus Active [place] - Hard of hearing Active Hyperlipidemia Active Hypertension Active MRSA1, 2 02/06/2013 Active Murmur Active UTI - Urinary tract infection Resolved MRSA isolated from breast [id number] added by Discern Expert.
--- OUTSIDE RECORDS SUMMARY | 2018-06-02 10:52 | XMS REPORT | CCD ---
:1935 Author Organization [facility] Team Providers Name Role Phone Toy Trujillo Consulting Provider Allergies, Adverse Reactions, Alerts Substance Reaction Status NKDA Active NKFA Active Problem List Condition Effective Dates Status Angina Active Breast ca Active Breast cancer Active cervical fracture < 11/30/2012 Inactive COPD < 11/30/2012 Inactive Diabetes mellitus Active HOONAH - Hard of hearing Active Hyperlipidemia Active Hypertension Active MRSA1, 2 02/06/2013 Active Murmur Active UTI - Urinary tract infection Resolved MRSA isolated from breast [id number] added by Discern Expert.
--- OUTSIDE RECORDS SUMMARY | 2018-06-02 10:54 | XMS REPORT | Continuity of Care Document ---
:1935 Author Organization [facility] Care Team Providers Name Role Phone MD Arie, Lázaro Unavailable Unavailable Insurance Providers Payer name Policy type / Policy ID Covered constitution party ID Policy Nunez Coverage type [place] [employer] (MEDICARE SUPPLEMENT) [employer] (MEDICARE SUPPLEMENT) [place] [employer] MED[place] [employer] [place] MEDICARE [place]: [employer] Encounters Encounter Performer Location Date Office Visit Lázaro Sargent MD [facility] May 24, 2014 Cardiology Problems Problem Effective [...] 2012 Active DILTIAZEM HCL CR 240 MG [id number] TAKE ONE TABLET ONCE A DAY Apr [...] Apr 10, sodium, serum SODIUM 139 mmol/L [phone] Apr 10, potassium, serum POTASSIUM 4.2 mmol/L [...] Apr 10, cholesterol, serum CHOLESTEROL 135 mg/dl [phone] Apr 10, triglyceride, TRIGLYCERIDE 115 mg/dl 0-149 [...]
--- OUTSIDE RECORDS SUMMARY | 2018-06-02 10:54 | XMS REPORT | Continuity of Care Document ---
:1935 Author Organization [facility] Care Team Providers Name Role Phone MD Arie, Lázaro Unavailable Unavailable Insurance Providers Payer name Policy type / Policy ID Covered green party ID Policy Nunez Coverage type [place]: [employer] [place] [employer] (MEDICARE [place]PPLEMENT) [employer] [place] [employer] (MEDICARE SUPPLEMENT) [place] [place]: [employer] [place]IC[place]: [employer] Encounters Encounter Performer Location Date Office Visit Lázaro Sargent MD [facility] Nov 22, 2014 Cardiology Problems Problem Effective [...] Date Status DILTIAZEM HCL CR 240 MG [id number] TAKE ONE TABLET ONCE A DAY Apr [...] Apr 10, sodium, serum SODIUM 139 mmol/L [phone] Apr 10, potassium, serum POTASSIUM 4.2 mmol/L [...] Apr 10, cholesterol, serum CHOLESTEROL 135 mg/dl [phone] Apr 10, triglyceride, TRIGLYCERIDE 115 mg/dl 0-149 [...]
[2018-06-02] MEDS ORDERED: GENTAMICIN 100 MG/100 ML BAG 100 MG/100 ML BAG IV ONE (11:31)
[2018-06-02] MEDS ORDERED: NA CHLORIDE 0.9% 1,000 ML ONE (11:31)
[2018-06-02 11:44] LABS: Absolute Lymphocytes (CBC) 1.2 K/uL (0.7-4.9); Absolute Monocytes 0.5 K/uL (0.1-1.3); Absolute Neutrophil 4.8 K/uL (1.8-8.0); Basophils % 1.4 % (0-1.3); Eosinophils % 5.1 % (0-4.4); Hematocrit 32.9 % (36.0-45.0); Lymphocytes % 16.7 % (15.3-44.8); MCH 26.5 pg (27.0-35.0); MPV 10.4 fL (7.6-11.3); Monocytes % 7.5 % (3.3-12.3); RBC Red Blood Cell Count 4.21 M/uL (3.86-4.86)
[2018-06-02] MEDS ORDERED: mitoMYcin 40 MG/50 ML SWI SYR IRR ONE (12:00)
[2018-06-02] MEDS ORDERED: FENTANYL CITR 100 MCG/2 ML ONE (12:12)
[2018-06-02] MEDS ORDERED: PROPOFOL 200 MG/20 ML VIAL IV ONE (12:12)
[2018-06-02] MEDS ORDERED: LIDOCAINE 2% MPF 5 ML VIAL ONE (12:13)
[2018-06-02] MEDS ORDERED: MIDAZOLAM HCL 2 MG/2 ML INJ ONE (12:13)
[2018-06-02] MEDS ORDERED: EPHEDRINE SULF 50 MG/10 ML SYR ONE (12:28)
[2018-06-02] MEDS ORDERED: GLYCOPYRROLATE 0.2 MG/ML SYR ONE (12:46)
[2018-06-02] MEDS ORDERED: OXYBUTYNIN CHLORIDE 5 MG TAB ONE (13:28)
--- NOTE | 2018-06-02 13:51 | RAD REPORT ---
EXAM DESCRIPTION: RAD - Urethrocystogrphy Retrograde - 06/02/2018 12:52 pm FINDINGS: Bilateral retrograde examination performed of the ureters. Fluoro time was 36 seconds. An 8 image sequence was obtained. No stricture, mass or intraluminal filling defect confirmed on these images.
[2018-06-02] MEDS ORDERED: HEPARIN 500 UNIT/5 ML SYR IV ONE (15:00)
== END 2018-06-02 15:30 | disposition home or self-care (01) ==
LOC: OR 10:45
PROVIDERS: ATTEND Urology
PROC: 3E0K8GC Introduction of Other Therapeutic Substance into Genitourinary Tract, Via Natural or Artificial Opening Endoscopic (ICD-10-PCS; 2018-06-02)
PROC: 0TBB8ZX Excision of Bladder, Via Natural or Artificial Opening Endoscopic, Diagnostic (ICD-10-PCS; principal; 2018-06-02 12:00)
DX: D49.4 Neoplasm of unspecified behavior of bladder (principal); N39.0 Urinary tract infection, site not specified; E11.9 Type 2 diabetes mellitus without complications; I10 Essential (primary) hypertension; E78.00 Pure hypercholesterolemia, unspecified; R79.1 Abnormal coagulation profile; Z01.818 Encounter for other preprocedural examination; Z85.3 Personal history of malignant neoplasm of breast; Z87.891 Personal history of nicotine dependence; Z90.13 Acquired absence of bilateral breasts and nipples; Z80.0 Family history of malignant neoplasm of digestive organs; Z80.8 Family history of malignant neoplasm of other organs or systems
CPT/HCPCS: 36415 ×2; 51610; 51720; 52234; 71046; 74450; 80048; 82962 ×2; 85025 ×2; 85610; 85730; 88305; J1580; J1642; J2250; J3010; J7030; J9280

== ENCOUNTER 2018-08-05 09:24 | Day surgery (SDC) | payer OTHER ==
[2018-08-05] MEDS ORDERED: HEPARIN 500 UNIT/5 ML SYR IV ONE (10:40)
[2018-08-05 11:26] LABS: Absolute Lymphocytes (CBC) 1.1 K/uL (0.7-4.9); Absolute Monocytes 0.4 K/uL (0.1-1.3); Absolute Neutrophil 4.2 K/uL (1.8-8.0); Basophils % 1.2 % (0-1.3); Eosinophils % 2.8 % (0-4.4); Hematocrit 31.9 % (36.0-45.0); Lymphocytes % 18.8 % (15.3-44.8); MPV 10.6 fL (7.6-11.3); Monocytes % 7.4 % (3.3-12.3); RBC Red Blood Cell Count 4.14 M/uL (3.86-4.86)
[2018-08-05 11:33] LABS: Bilirubin Total 0.3 mg/dL (0.2-1.0); Potassium 3.8 mmol/L (3.5-5.1); Thyroid Stimulating Hormone 1.02 uIU/mL (0.360-3.740)
--- OUTSIDE RECORDS SUMMARY | 2018-08-06 16:59 | XMS REPORT | Clinical Summary ---
:1935 Author Organization [facility] Address [address] [place] [address] Care Team Providers Name Role Phone Asked, No Pcp Primary Care Provider Unavailable Allergies No Known Allergies Medications Medication Sig Dispensed Refills Start Date End Date Status ANASTROZOLE ORAL Take by mouth. 0 Active diazepam (VALIUM) 5 MG Take 5 mg by mouth 0 Active tablet every 6 (six) hours as needed for anxiety. lisinopril Take 20 mg by 0 Active (PRINIVIL,ZESTRIL) 20 mouth daily. MG tablet metFORMIN XR Take 500 mg by 0 Active (GLUCOPHATE-XR) 500 MG mouth daily with 24 hr tablet breakfast. simvastatin (ZOCOR) 40 Take 40 mg by 0 Active MG tablet mouth nightly. gabapentin (NEURONTIN) Take 300 mg by 0 Active 300 MG capsule mouth 3 (three) times a day. traMADol (ULTRAM) 50 Take 50 mg by 0 Active mg tablet mouth every 6 (six) hours as needed for moderate pain. diltiazem CD (CardIZEM Take 240 mg by 0 Active CD) 240 MG 24 hr mouth daily. capsule LORATADINE (CLARITIN Take by mouth. 0 Active ORAL) ERGOCALCIFEROL, Take by mouth. 0 Active VITAMIN D2, (VITAMIN D2 ORAL) IBUPROFEN (ADVIL ORAL) Take by mouth. 0 Active aspirin (ECOTRIN) 81 Take 81 mg by 0 Active MG enteric coated mouth daily. tablet simvastatin (ZOCOR) 40 TAKE 1 TABLET BY 3 02/14/2016 Active MG tablet MOUTH AT BEDTIME. anastrozole (ARIMIDEX) Take 1 mg by mouth 3 03/17/2016 Active 1 mg chemo tablet once daily. calcitonin, salmon, INHALE 1 (ONE) 0 04/02/2016 Active (MIACALCIN) 200 SOLUTION, NASAL, unit/actuation nasal DAILY. spray lisinopril-hydrochloro Take 1 tablet by 3 02/05/2016 Active thiazide mouth 2 (two) (PRINZIDE,ZESTORETIC) times a day. 20-25 mg per tablet naproxen (NAPROSYN) Take 500 mg by 0 03/12/2016 Active 500 MG tablet mouth 2 (two) times a day as needed. tramadol-acetaminophen Take 1 tablet by 0 04/02/2016 Active (ULTRACET) 37.5-325 mg mouth 3 (three) per tablet times a day as needed. Active Problems No known active problems Social History Tobacco Use Types Packs/Day Years Used Date Never Smoker Alcohol Use Drinks/Week oz/Week Comments No Sex Assigned at Date Recorded Not on file Job Start Date Occupation Industry Not on file Not on file Not on file Travel History Travel Start Travel End No recent travel history available. Last Filed Vital Signs Not on file Plan of Treatment Health Maintenance Due Date Last Done Comments SHINGLES VACCINES (1 of 2) 1985 PNEUMOCOCCAL POLYSACCHARIDE VACCINE AGE 65 AND OVER 2000 PNEUMOCOCCAL-13 2000 INFLUENZA VACCINE 03/17/2018 Results Not on fileafter 08/04/2017 Insurance Payer Benefit Plan / Group Subscriber ID Type Phone Address MEDICARE MEDICARE PART A AND B xxxxxxxxxx Medicare [place], [place] UNITED [employer] xxxxxxxxx Commercial Advance Directives Patient has advance care planning documents on file. For more information, please contact:[place] [address]
--- OUTSIDE RECORDS SUMMARY | 2018-08-06 17:00 | XMS REPORT | Continuity of Care Document ---
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 [facility] Bilateral mastectomy [id number] [facility] Bladder<sup>1</sup> [id number] Bladder [facility] Breast biopsy and [id number] [facility] Cholecystectomy [id number] [facility] Colon [id number] [place] of bleed [facility]<sup>2</sup Medical > [place] Colonoscopy<sup>3</s 88687012 times several [facility] Hernia repair [id number] [facility] Hysterectomy [id number] [facility] Teeth [phone] dental implant [facility]<sup>4</sup Medical > [place] Tonsillectomy and [id number] [facility] [id number] [facility]
--- OUTSIDE RECORDS SUMMARY | 2018-08-06 17:01 | XMS REPORT | CCD ---
:1935 Author Organization [facility] Team Providers Name Role Phone Toy Trujillo Consulting Provider Allergies, Adverse Reactions, Alerts Substance Reaction Status NKDA Active NKFA Active Problem List Condition Effective Dates Status Angina Active Breast ca Active Breast cancer Active cervical fracture < 11/30/2012 Inactive COPD < 11/30/2012 Inactive Diabetes mellitus Active [place] - Hard of hearing Active Hyperlipidemia Active Hypertension Active MRSA1, 2 02/06/2013 Active [place] Active UTI - Urinary tract infection Resolved MRSA isolated from breast [id number] added by Discern Expert.
--- OUTSIDE RECORDS SUMMARY | 2018-08-06 17:01 | XMS REPORT | CCD ---
:1935 Author Organization [facility] Outpatient Imaging [facility] Care Team Providers Name Role Phone Juanpablo Martin Consulting Provider Allergies, Adverse Reactions, Alerts Substance Reaction Status NKDA Active NKFA Active Problem List Condition Effective Dates Status Angina Active Breast ca Active Breast cancer Active cervical fracture < 11/30/2012 Inactive COPD < 11/30/2012 Inactive Diabetes mellitus Active [place] - Hard of hearing Active Hyperlipidemia Active Hypertension Active MRSA1, 2 02/06/2013 Active Murmur Active UTI - Urinary tract infection Resolved MRSA isolated from breast [id number] added by Discern Expert.
--- OUTSIDE RECORDS SUMMARY | 2018-08-06 17:01 | XMS REPORT | CCD ---
:1935 Author Organization [facility] Team Providers Name Role Phone Toy Trujillo Consulting Provider Allergies, Adverse Reactions, Alerts Substance Reaction Status NKDA Active NKFA Active Problem List Condition Effective Dates Status Angina Active Breast ca Active Breast cancer Active Diabetes mellitus Active [facility] - Hard of hearing Active Hyperlipidemia Active Hypertension Active MRSA1, 2 02/06/2013 Active [place]mur Active UTI - Urinary tract infection Resolved MRSA isolated from breast [id number] added by Discern Expert.
--- OUTSIDE RECORDS SUMMARY | 2018-08-06 17:02 | XMS REPORT | Continuity of Care Document ---
:1935 Author Organization [facility] Care Team Providers Name Role Phone MD Arie, Lázaro Unavailable Unavailable Insurance Providers Payer name Policy type / Policy ID Covered republican ID Policy Nunez Coverage type [place] [employer] [place] [employer] (MEDICARE SUPPLEMENT) [employer] [place] [employer] (MEDICARE SUPPLEMENT) [place] [employer]OV[employer]AS [employer] MEDICARE [place]: [employer] MEDICARE [place]: 1[employer]bel Encounters Encounter Performer Location Date Office Visit Lázaro Sargent MD [facility] May 24, 2014 Cardiology [...] 2012 Active DILTIAZEM HCL CR 240 MG [id number] TAKE ONE TABLET ONCE A DAY Apr [...] Apr 10, sodium, serum SODIUM 139 mmol/L [phone] Apr 10, potassium, serum POTASSIUM 4.2 mmol/L [...] Apr 10, cholesterol, serum CHOLESTEROL 135 mg/dl [phone] Apr 10, triglyceride, TRIGLYCERIDE 115 mg/dl 0-149 [...]
--- OUTSIDE RECORDS SUMMARY | 2018-08-06 17:03 | XMS REPORT | Continuity of Care Document ---
:1935 Author Organization [facility] Care Team Providers Name Role Phone MD Arie, Lázaro Unavailable Unavailable Insurance Providers Payer name Policy type / Policy ID Covered libertarian ID Policy Nunez Coverage type [place]: [employer] [place] [employer] (MEDICARE SUPPLEMENT) [employer] (MEDICARE SUPPLEMENT) [place]: NOVITAS [place] MEDICARE B-[place]: [id number] PerryITAS LAVEGO MEDICARE B-[place]: [employer] Encounters Encounter Performer Location Date Office Visit Lázaro Sargent MD [facility] Nov 22, 2014 Cardiology Problems [...] Date Status DILTIAZEM HCL CR 240 MG [id number] TAKE ONE TABLET ONCE A DAY Apr [...] Apr 10, sodium, serum SODIUM 139 mmol/L [phone] Apr 10, potassium, serum POTASSIUM 4.2 mmol/L [...] Apr 10, cholesterol, serum CHOLESTEROL 135 mg/dl [phone] Apr 10, triglyceride, TRIGLYCERIDE 115 mg/dl 0-149 [...]
--- OUTSIDE RECORDS SUMMARY | 2018-08-06 17:03 | XMS REPORT ---
[...] End Status Dosage System Date Date Anastrozole [facility] 23022776001 1 MG Oral Active TAKE 1 TABLET BY MOUTH EVERY DAY Tramadol HCl [facility] 61551013757 50 MG Oral Active (Schedule IV Drug) TAKE 1 TABLET (50 MG) BY MOUTH EVERY 8 HOURS NEEDED Loratadine [facility] 11665504930 10 MG Oral Active TAKE 1 TABLET BY MOUTH EVERY DAY Metformin HCl [facility] 53568056049 500 MG Oral Active TAKE 1 TABLET (500 MG) BY MOUTH 2 TIMES PER DAY WITH MEALS Simvastatin [facility] 80768003808 40 MG Oral Active TAKE 1 TABLET BY MOUTH AT BEDTIME Lisinopril-Hydr [facility] 40643792830 20-25 MG Oral Active TAKE 1 ochlorothiazide TABLET BY MOUTH TWICE A DAY Gabapentin [facility] 05252000177 300 MG Oral Active TAKE 1 CAPSULE BY MOUTH AT BEDTIME. Diltiazem HCl [facility] 07431070649 240 MG Oral Active TAKE ONE ER Beads CAPSULE BY MOUTH EVERY DAY Results No Known Results Summary Purpose eClinicalWorks Submission
--- OUTSIDE RECORDS SUMMARY | 2018-08-06 17:03 | XMS REPORT ---
[...] Status Dosage System Date Date Anastrozole [facility] 96363535830 1 MG Oral Active TAKE 1 TABLET BY MOUTH EVERY DAY Metformin HCl [facility] 29246195752 500 MG Oral Active TAKE 1 TABLET (500 MG) BY MOUTH 2 TIMES PER DAY WITH MEALS Tramadol HCl [facility] 96444828392 50 MG Oral Active (Schedule IV Drug) TAKE 1 TABLET (50 MG) BY MOUTH EVERY 8 HOURS NEEDED Loratadine [facility] 73110867152 10 MG Oral Active TAKE 1 TABLET BY MOUTH EVERY DAY Simvastatin [facility] 16018892629 40 MG Oral Active TAKE 1 TABLET BY MOUTH AT BEDTIME Lisinopril-Hydr [facility] 67329306038 20-25 MG Oral Active TAKE 1 ochlorothiazide TABLET BY MOUTH TWICE A DAY Gabapentin [facility] 94487443329 300 MG Oral Active TAKE 1 CAPSULE BY MOUTH AT BEDTIME. Diltiazem HCl [facility] 85308995664 240 MG Oral Active TAKE ONE ER Beads CAPSULE BY MOUTH EVERY DAY Results No Known Results Summary Purpose eClinicalWorks Submission
== END 2018-08-05 11:00 | disposition home or self-care (01) ==
LOC: DS 09:24
PROVIDERS: ATTEND Internal Medicine
DX: Z45.2 Encounter for adjustment and management of vascular access device (principal); C50.919 Malignant neoplasm of unspecified site of unspecified female breast; D64.9 Anemia, unspecified; E11.9 Type 2 diabetes mellitus without complications; E78.5 Hyperlipidemia, unspecified; I50.9 Heart failure, unspecified
CPT/HCPCS: 36415; 80053; 80061; 83036; 83880; 84443; 85025; 96523; J1642

== ENCOUNTER 2018-08-27 11:57 | Day surgery (SDC) | payer OTHER ==
--- OUTSIDE RECORDS SUMMARY | 2018-08-27 12:25 | XMS REPORT | Clinical Summary ---
:1935 Author Organization [facility] Address [address] [place] [address] Care Team Providers Name Role Phone Asked, [...] INFLUENZA VACCINE 03/17/2018 Results Not on fileafter 08/26/2017 Insurance Payer Benefit Plan / Group Subscriber ID Type Phone Address MEDICARE MEDICARE PART A AND B xxxxxxxxxx Medicare [place], [place] [employer] [place] xxxxxxxxx Commercial Advance Directives Patient has advance care planning documents on file. For more information, please contact:[place] [address]
--- OUTSIDE RECORDS SUMMARY | 2018-08-27 12:28 | XMS REPORT | CCD ---
:1935 Author Organization [facility] Team Providers Name Role Phone Toy Trujillo Consulting Provider Allergies, Adverse Reactions, Alerts Substance Reaction Status NKDA Active NKFA Active Problem List Condition Effective Dates Status Angina Active Breast ca Active Breast cancer Active Diabetes mellitus Active [facility] - Hard of hearing Active Hyperlipidemia Active Hypertension Active MRSA1, 2 02/06/2013 Active Murmur Active UTI - Urinary tract infection Resolved MRSA isolated from breast [id number] added by Discern Expert.
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
--- OUTSIDE RECORDS SUMMARY | 2018-08-27 12:28 | XMS REPORT | CCD ---
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
--- OUTSIDE RECORDS SUMMARY | 2018-08-27 12:29 | XMS REPORT | CCD ---
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
--- OUTSIDE RECORDS SUMMARY | 2018-08-27 12:30 | XMS REPORT ---
[...] End Status Dosage System Date Date Anastrozole FORMER[facility] NAMED [facility] 13927136785 1 MG Oral Active TAKE 1 TABLET BY MOUTH EVERY DAY Tramadol HCl FORMERLY NAMED [facility] 82994631581 50 MG Oral Active (Schedule IV Drug) TAKE 1 TABLET (50 MG) BY MOUTH EVERY 8 HOURS NEEDED Loratadine FORMERLY NAMED [facility] 27847338030 10 MG Oral Active TAKE 1 TABLET BY MOUTH EVERY DAY Metformin HCl FORMERLY NAMED [facility] 91653186877 500 MG Oral Active TAKE 1 TABLET (500 MG) BY MOUTH 2 TIMES PER DAY WITH MEALS Simvastatin FORMERLY NAMED [facility] 02675405720 40 MG Oral Active TAKE 1 TABLET BY MOUTH AT BEDTIME Lisinopril-Hydr FORMERLY NAMED [facility] 37192721870 20-25 MG Oral Active TAKE 1 ochlorothiazide TABLET BY MOUTH TWICE A DAY Gabapentin FORMERLY NAMED [facility] 12972255078 300 MG Oral Active TAKE 1 CAPSULE BY MOUTH AT BEDTIME. Diltiazem HCl FORMERLY NAMED [facility] 20189191526 240 MG Oral Active TAKE ONE ER Beads CAPSULE BY MOUTH EVERY DAY Results No Known Results Summary Purpose eClinicalWorks Submission
--- OUTSIDE RECORDS SUMMARY | 2018-08-27 12:30 | XMS REPORT | Continuity of Care Document ---
:1935 Author Organization [facility] Care Team Providers Name Role Phone MD Arie, Lázaro Unavailable Unavailable Insurance Providers Payer name Policy type / Policy ID Covered libertarian ID Policy Nunez Coverage type [place] [employer] [place]MED[place]) [place] (MED[place]ARE [place]) [place] [employer] [place] AuditionBoothITAS Wireless Safety MEDICARE [place]: [employer] Encounters Encounter Performer Location Date Office Visit Lázaro Sargent MD [facility] Nov 22, 2014 Cardiology [...] Date Status DILTIAZEM HCL CR 240 MG [id number] TAKE ONE TABLET ONCE A DAY Apr [...] RATE 84 /min Apr 09, 2012 weight E&Herbret - 3141-9 WEIGHT 177 lb Apr 09, [...] Apr 10, sodium, serum SODIUM 139 mmol/L [phone] Apr 10, potassium, serum POTASSIUM 4.2 mmol/L [...] Apr 10, cholesterol, serum CHOLESTEROL 135 mg/dl [phone] Apr 10, triglyceride, TRIGLYCERIDE 115 mg/dl 0-149 [...]
--- OUTSIDE RECORDS SUMMARY | 2018-08-27 12:30 | XMS REPORT ---
[...] End Status Dosage System Date Date Anastrozole [facility] 02234124842 1 MG Oral Active TAKE 1 TABLET BY MOUTH EVERY DAY Metformin HCl [facility] 42574323777 500 MG Oral Active TAKE 1 TABLET (500 MG) BY MOUTH 2 TIMES PER DAY WITH MEALS Tramadol HCl [facility] 61555525301 50 MG Oral Active (Schedule IV Drug) TAKE 1 TABLET (50 MG) BY MOUTH EVERY 8 HOURS NEEDED Loratadine [facility] 74035183499 10 MG Oral Active TAKE 1 TABLET BY MOUTH EVERY DAY Simvastatin [facility] 05593189242 40 MG Oral Active TAKE 1 TABLET BY MOUTH AT BEDTIME Lisinopril-Hydr [facility] 10450104283 20-25 MG Oral Active TAKE 1 ochlorothiazide TABLET BY MOUTH TWICE A DAY Gabapentin [facility] 31561570560 300 MG Oral Active TAKE 1 CAPSULE BY MOUTH AT BEDTIME. Diltiazem HCl [facility] 80258984135 240 MG Oral Active TAKE ONE ER Beads CAPSULE BY MOUTH EVERY DAY Results No Known Results Summary Purpose eClinicalWorks Submission
--- OUTSIDE RECORDS SUMMARY | 2018-08-27 12:30 | XMS REPORT | Continuity of Care Document ---
:1935 Author Organization [facility] Care Team Providers Name Role Phone MD Arie, Lázaro Unavailable Unavailable Insurance Providers Payer name Policy type / Policy ID Covered libertarian ID Policy Nunez Coverage type [place] [employer] [place] (MEDICARE [place]PPLE[place]) [place] (MEDICARE [place]PPLE[place]) [place]: [place] [place] GillBusITAS [employer] [place] [employer] Encounters Encounter Performer Location Date Office Visit Lázaro Sargent MD [facility] May 24, 2014 Cardiology Problems [...] 2012 Active DILTIAZEM HCL CR 240 MG [id number] TAKE ONE TABLET ONCE A DAY Apr [...] Apr 10, sodium, serum SODIUM 139 mmol/L [phone] Apr 10, potassium, serum POTASSIUM 4.2 mmol/L [...] Apr 10, cholesterol, serum CHOLESTEROL 135 mg/dl [phone] Apr 10, triglyceride, TRIGLYCERIDE 115 mg/dl 0-149 [...]
[2018-08-27] MEDS ORDERED: NA CHLORIDE 0.9% 1,000 ML ONE (12:32)
[2018-08-27] MEDS ORDERED: LIDOCAINE 1% MPF 5 ML VIAL ONE (13:51)
[2018-08-27] MEDS ORDERED: PROPOFOL 200 MG/20 ML VIAL IV ONE ×2 (13:51)
--- NOTE | 2018-08-27 14:22 | ENDO RPT ---
[address], [address] EGD WITH DILATION PROCEDURE REPORT EXAM DATE: 08/27/2018 PATIENT NAME: Veronique Keller MR#: [id number] BIRTHDATE: 1935 ATTENDING: Ruperto Barba Dr STATUS: outpatient DRUG AND ALCOHOL COUNSELOR: Nica Bhatt, Chelsie Banks RN, and Zahra Bhatt INDICATIONS: The patient is a 83 yr old Female here for an EGD with dilation due to dysphagia, bloating, belching, dyspepsia, nausea, and chronic unexplained diarrhea PROCEDURE PERFORMED: EGD with biopsy and EGD with dilatation over guidewire MEDICATIONS: Per Anesthesia. TOPICAL ANESTHETIC: none CONSENT: The patient understands the risks and benefits of the procedure and understands that these risks include, but are not limited to: sedation, allergic reaction, infection, perforation and/or bleeding. Alternative means of evaluation and treatment include, among others: physical exam, x-rays, and/or surgical intervention. The patient elects to proceed with this endoscopic procedure. DESCRIPTION OF PROCEDURE: During intra-op preparation period all mechanical medical equipment was checked for proper function. Hand hygiene and appropriate measures for infection prevention was taken. After the risks, benefits and alternatives of the procedure were thoroughly explained, Informed consent was verified, confirmed and timeout was successfully executed by the treatment team. The patient was anesthetized with topical anesthesia and the Pentax EG-[id number] ([id number]) endoscope was introduced through the mouth and advanced to the third portion of the duodenum. The instrument was slowly withdrawn as the mucosa was fully examined. A large hiatal hernia was found Mild Atrophic gastritis was found in the body of the stomach. Multiple biopsies were obtained and sent to pathology. Mild gastritis was found in the antrum. Multiple biopsies were obtained and sent to pathology. Small bowel biopsies obtained with history of chronic unexplained diarrhea. Dilation was performed at lower esophagus. DILATOR: SIZE(S): RESISTANCE: HEME: APPEARANCE: Dilator: Savary over guidewire Size(s): 14,15 mm Resistance: minimal Heme: none Appearance: adequate COMMENT: Retroflexed views revealed a large hiatal hernia. ADVERSE EVENTS: There were no complications. IMPRESSIONS: 1. Non-obstructive dysphagia, s/p 14/15 mm Savary dilatations 2. Large hiatal hernia 3. Mild trophic gastritis in the body of the stomach, s/p biopsies 4. Mild gastritis was found in the antrum 5. Small bowel biopsies obtained with history of chronic unexplained diarrhea RECOMMENDATIONS: 1. await biopsy results 2. acid suppression therapy REPEAT EXAM: Ruperto Barba Dr eSigned: Ruperto Barba Dr 08/27/2018 2:12 PM cc: Darren Arias CPT CODES: ICD9 CODES: PATIENT NAME: Veronique Keller MR#: [id number]
--- NOTE | 2018-08-27 14:38 | ENDO RPT ---
[address], [address] COLONOSCOPY PROCEDURE REPORT EXAM DATE: 08/27/2018 PATIENT NAME: Veronique Keller MR #: [id number] BIRTHDATE: 1935 ATTENDING: Ruperto Barba Dr STATUS: outpatient BACTERIOLOGIST SOIL: Nica Bhatt, Chelsie Banks RN, and Zahra Bhatt INDICATIONS: The patient is a 83 yr old Female here for a colonoscopy due to RLQ/LLQ abdominal pain, change in bowel habits, unexplained chronic diarrhea, and constipation PROCEDURE PERFORMED: Colonoscopy MEDICATIONS: Per Anesthesia. ESTIMATED BLOOD LOSS: None CONSENT: The patient understands the risks and benefits of the procedure and understands that these risks include, but are not limited to: sedation, allergic reaction, infection, perforation and/or bleeding. Alternative means of evaluation and treatment include, among others: physical exam, x-rays, and/or surgical intervention. The patient elects to proceed with this endoscopic procedure. DESCRIPTION OF PROCEDURE: During intra-op preparation period all mechanical medical equipment was checked for proper function. Hand hygiene and appropriate measures for infection prevention was taken. Procedure, possible complications, alternatives including, but not limited to possibility of bleeding, perforation, tear, infection, sepsis, need for surgery, need for blood transfusion, were explained to the patient. After the risks, benefits and alternatives of the procedure were thoroughly explained, Informed consent was verified, confirmed and timeout was successfully executed by the treatment team. The patient was placed in the left lateral position. A digital rectal exam was performed and revealed several skin tags. After appropriate level of anesthesia, the scope was passed. The EG-[id number] ([id number]) and [id number] ([id number]) endoscope was introduced through the anus and advanced to the terminal ileum which was intubated for a short distance. The quality of the prep was fair. The instrument was then slowly withdrawn as the colon was fully examined. Scope withdrawal time was 8 minutes. COLON FINDINGS: There was moderate diverticulosis noted in the sigmoid colon with associated muscular hypertrophy and tortuosity. No bleeding was noted from the diverticulosis. Moderate sized internal hemorrhoids were found. Retroflexed views revealed medium hemorrhoids. The scope was then completely withdrawn from the patient and the procedure terminated. ADVERSE EVENTS: There were no complications. IMPRESSIONS: 1. Moderate diverticulosis in the sigmoid colon 2. Moderate sized internal hemorrhoids 3. Intubation to terminal ileum RECOMMENDATIONS: fiber rich diet RECALL: None scheduled due to age (83 y.o.) Ru[address]ba [address] eSigned: Ruperto Barba Dr 08/27/2018 2:38 PM cc: Darren Arias CPT CODES: ICD9 CODES: PATIENT NAME: KrishnaVeronique MR#: [id number]
[2018-08-27] MEDS ORDERED: HEPARIN 500 UNIT/5 ML SYR IV ONE (15:15)
== END 2018-08-27 15:37 | disposition home or self-care (01) ==
LOC: ENDO 11:57
PROVIDERS: ATTEND Internal Medicine Gastroenterology
PROC: 0DB68ZX Excision of Stomach, Via Natural or Artificial Opening Endoscopic, Diagnostic (ICD-10-PCS; 2018-08-27)
PROC: 0DB88ZX Excision of Small Intestine, Via Natural or Artificial Opening Endoscopic, Diagnostic (ICD-10-PCS; 2018-08-27)
PROC: 0DJD8ZZ Inspection of Lower Intestinal Tract, Via Natural or Artificial Opening Endoscopic (ICD-10-PCS; principal; 2018-08-27 13:00)
PROC: 0D758ZZ Dilation of Esophagus, Via Natural or Artificial Opening Endoscopic (ICD-10-PCS; 2018-08-27 13:00)
DX: R13.19 Other dysphagia (principal); K29.40 Chronic atrophic gastritis without bleeding; K44.9 Diaphragmatic hernia without obstruction or gangrene; K57.30 Diverticulosis of large intestine without perforation or abscess without bleeding; K64.8 Other hemorrhoids; E11.9 Type 2 diabetes mellitus without complications; I10 Essential (primary) hypertension; J44.9 Chronic obstructive pulmonary disease, unspecified; Z85.3 Personal history of malignant neoplasm of breast; Z87.891 Personal history of nicotine dependence; I25.10 Atherosclerotic heart disease of native coronary artery without angina pectoris
CPT/HCPCS: 43239; 43248; 45378; 88305; 88312; 96523; J1642; J2704 ×2; J7030

== ENCOUNTER 2018-10-14 09:50 | Day surgery (SDC) | payer OTHER ==
--- OUTSIDE RECORDS SUMMARY | 2018-10-14 10:10 | XMS REPORT | Clinical Summary ---
:1935 Author Organization [facility] Address [address] [place] [address] Care Team Providers Name Role Phone Asked, [...] Due Date Last Done Comments SHINGLES VACCINES (#1) 1985 65+ PNEUMOCOCCAL VACCINE (1 of 2 - PCV13) 2000 PNEUMOCOCCAL POLYSACCHARIDE VACCINE AGE 65 AND OVER 2000 INFLUENZA VACCINE 03/17/2018 Results Not on fileafter 10/13/2017 Insurance Payer Benefit Plan / Group Subscriber ID Type Phone Address MEDICARE MEDICARE PART A AND B xxxxxxxxxx Medicare [place], [place] UNITED [place] UNITED [employer] xxxxxxxxx Commercial Advance Directives Patient has advance care planning documents on file. For more information, please contact:[place] [address]
[2018-10-14] MEDS ORDERED: HEPARIN 500 UNIT/5 ML SYR IV ONE (10:11)
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
--- OUTSIDE RECORDS SUMMARY | 2018-10-14 10:13 | XMS REPORT | CCD ---
:1935 Author Organization [facility] Outpatient Imaging [facility] Care Team Providers Name Role Phone Juanpablo Martin Consulting Provider Allergies, Adverse Reactions, Alerts Substance Reaction Status NKDA Active NKFA Active Problem List Condition Effective Dates Status Angina Active Breast ca Active Breast cancer Active cervical fracture < 11/30/2012 Inactive COPD < 11/30/2012 Inactive Diabetes mellitus Active [place] - Hard of hearing Active Hyperlipidemia Active Hypertension Active MRSA1, 2 02/06/2013 Active Murmur Active UTI - Urinary tract infection Resolved MRSA isolated from breast [id number] added by Discern Expert.
--- OUTSIDE RECORDS SUMMARY | 2018-10-14 10:13 | XMS REPORT | CCD ---
:1935 Author Organization [facility] Team Providers Name Role Phone Toy Trujillo Consulting Provider Allergies, Adverse Reactions, Alerts Substance Reaction Status NKDA Active NKFA Active Problem List Condition Effective Dates Status Angina Active Breast ca Active Breast cancer Active Diabetes mellitus Active [place] - Hard of hearing Active Hyperlipidemia Active Hypertension Active MRSA1, 2 02/06/2013 Active Murmur Active UTI - Urinary tract infection Resolved MRSA isolated from breast [id number] added by Discern Expert.
--- OUTSIDE RECORDS SUMMARY | 2018-10-14 10:14 | XMS REPORT | CCD ---
:1935 Author Organization [facility] Team Providers Name Role Phone Toy Trujillo Consulting Provider Allergies, Adverse Reactions, Alerts Substance Reaction Status NKDA Active NKFA Active Problem List Condition Effective Dates Status Angina Active Breast ca Active Breast cancer Active cervical fracture < 11/30/2012 Inactive COPD < 11/30/2012 Inactive Diabetes mellitus Active [place] - Hard of hearing Active Hyperlipidemia Active Hypertension Active MRSA1, 2 02/06/2013 Active Murmur Active UTI - Urinary tract infection Resolved MRSA isolated from breast [id number] added by Discern Expert.
--- OUTSIDE RECORDS SUMMARY | 2018-10-14 10:16 | XMS REPORT | Continuity of Care Document ---
:1935 Author Organization [facility] Care Team Providers Name Role Phone MD Arie, Lázaro Unavailable Unavailable Insurance Providers Payer name Policy type / Policy ID Covered democrat ID Policy Nunez Coverage type [place] [employer] [place]MED[place]) [place] (MED[place]ARE [place]) [place] [employer] MEDICARE [place]: [employer] MEDICARE [place]: [employer] Encounters Encounter Performer Location Date Office Visit Lázaro Sargent MD [facility] May 24, 2014 Cardiology Problems Problem Effective [...] 2012 Active DILTIAZEM HCL CR 240 MG [id number] TAKE ONE TABLET ONCE A DAY Apr [...] Apr 10, sodium, serum SODIUM 139 mmol/L [phone] Apr 10, potassium, serum POTASSIUM 4.2 mmol/L [...] Apr 10, cholesterol, serum CHOLESTEROL 135 mg/dl [phone] Apr 10, triglyceride, TRIGLYCERIDE 115 mg/dl 0-149 [...]
--- OUTSIDE RECORDS SUMMARY | 2018-10-14 10:16 | XMS REPORT ---
[...] End Status Dosage System Date Date Anastrozole [facility] 71601401640 1 MG Oral Active TAKE 1 TABLET BY MOUTH EVERY DAY Tramadol HCl [facility] 85480676919 50 MG Oral Active (Schedule IV Drug) TAKE 1 TABLET (50 MG) BY MOUTH EVERY 8 HOURS NEEDED Loratadine [facility] 13463873687 10 MG Oral Active TAKE 1 TABLET BY MOUTH EVERY DAY Metformin HCl [facility] 30308977473 500 MG Oral Active TAKE 1 TABLET (500 MG) BY MOUTH 2 TIMES PER DAY WITH MEALS Simvastatin [facility] 39557571820 40 MG Oral Active TAKE 1 TABLET BY MOUTH AT BEDTIME Lisinopril-Hydr [facility] 55864740022 20-25 MG Oral Active TAKE 1 ochlorothiazide TABLET BY MOUTH TWICE A DAY Gabapentin [facility] 50684189805 300 MG Oral Active TAKE 1 CAPSULE BY MOUTH AT BEDTIME. Diltiazem HCl [facility] [id number] 240 MG Oral Active TAKE ONE ER Beads CAPSULE BY MOUTH EVERY DAY Results No Known Results Summary Purpose eClinicalWorks Submission
--- OUTSIDE RECORDS SUMMARY | 2018-10-14 10:16 | XMS REPORT | Continuity of Care Document ---
:1935 Author Organization [facility] Care Team Providers Name Role Phone MD Arie, Lázaro Unavailable Unavailable Insurance Providers Payer name Policy type / Policy ID Covered alliance party ID Policy Nunez Coverage type MEDIC[place]: [employer] [place] (MEDICARE SUPPLEMENT) [place] (MEDICARE SUPPLEMENT) MED[place]: [employer] MEDICARE B-[place]: [employer] MEDICARE B-[place]: [employer] Encounters Encounter Performer Location Date Office Visit Lázaro Sargent MD [facility] Nov 22, 2014 Cardiology Problems Problem [...] Date Status DILTIAZEM HCL CR 240 MG [id number] TAKE ONE TABLET ONCE A DAY Apr [...] Apr 10, sodium, serum SODIUM 139 mmol/L [phone] Apr 10, potassium, serum POTASSIUM 4.2 mmol/L [...] Apr 10, cholesterol, serum CHOLESTEROL 135 mg/dl [phone] Apr 10, triglyceride, TRIGLYCERIDE 115 mg/dl 0-149 [...]
--- OUTSIDE RECORDS SUMMARY | 2018-10-14 10:17 | XMS REPORT ---
[...] End Status Dosage System Date Date Anastrozole [facility] 98623507587 1 MG Oral Active TAKE 1 TABLET BY MOUTH EVERY DAY Metformin HCl [facility] 98821361073 500 MG Oral Active TAKE 1 TABLET (500 MG) BY MOUTH 2 TIMES PER DAY WITH MEALS Tramadol HCl [facility] 02250273599 50 MG Oral Active (Schedule IV Drug) TAKE 1 TABLET (50 MG) BY MOUTH EVERY 8 HOURS NEEDED Loratadine [facility] 21609547948 10 MG Oral Active TAKE 1 TABLET BY MOUTH EVERY DAY Simvastatin [facility] 63375090989 40 MG Oral Active TAKE 1 TABLET BY MOUTH AT BEDTIME Lisinopril-Hydr [facility] 06346010448 20-25 MG Oral Active TAKE 1 ochlorothiazide TABLET BY MOUTH TWICE A DAY Gabapentin [facility] 69493420700 300 MG Oral Active TAKE 1 CAPSULE BY MOUTH AT BEDTIME. Diltiazem HCl [facility] 68534256377 240 MG Oral Active TAKE ONE ER Beads CAPSULE BY MOUTH EVERY DAY Results No Known Results Summary Purpose eClinicalWorks Submission
== END 2018-10-14 10:10 | disposition home or self-care (01) ==
LOC: DS 09:50
PROVIDERS: ATTEND Internal Medicine
DX: Z45.2 Encounter for adjustment and management of vascular access device (principal); C50.919 Malignant neoplasm of unspecified site of unspecified female breast
CPT/HCPCS: 96523; J1642

== ENCOUNTER 2018-11-25 09:54 | Day surgery (SDC) | payer OTHER ==
--- OUTSIDE RECORDS SUMMARY | 2018-11-25 09:57 | XMS REPORT | Clinical Summary ---
:1935 Author Organization [facility] Address [address] [place] [address] Care Team Providers Name Role Phone Asked, [...] AGE 65 AND OVER 2000 INFLUENZA VACCINE 03/17/2019 Results Not on fileafter 11/24/2017 Insurance Payer Benefit Plan / Group Subscriber ID Type Phone Address MEDICARE MEDICARE PART A AND B xxxxxxxxxx Medicare [place], [place] UNITED SYRIAN UNITED [employer]AN xxxxxxxxx Commercial Advance Directives Patient has advance care planning documents on file. For more information, please contact:[place] [address]
--- OUTSIDE RECORDS SUMMARY | 2018-11-25 10:01 | XMS REPORT | Summary of Care ---
:1935 Author Organization [facility] Cardiology [facility] Address [address] [place] [address]- Encounter HQ Encntr_alias(FIN) [id number] Date(s): 11/08/18 - 11/09/18 [facility] 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 Diabetes mellitus(Confirmed) Active [place] - Hard of hearing(Confirmed) Active Hyperlipidemia(Confirmed)4 Active Hypertension(Confirmed) Active Hypertensive disorder5 Active Long-term drug therapy6 Active Malignant tumor of breast7 11/09/12 Active 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)9, 10 02/06/13 Active Murmur(Confirmed) Active Peripheral nerve [id number] 11/09/13 Active Renal insufficiency(Confirmed) Active Type 2 diabetes Active mellitus(Confirmed)12 UTI - Urinary tract Resolved infection(Confirmed) Vitamin D [id number] Active 1Data migrated from [employer] on 01/16/15.2Data migrated from [employer] on 01/16/15.3Data migrated from [employer] on 01/16/15.4Data migrated from [employer] on 01/16/15.5Data migrated from [employer] on 01/16/15.6Data migrated from [employer] on 01/16/15.7Data migrated from [employer] on 01/16/15.8Data migrated from [employer] on 01/16/15. MRSA isolated from breast [id number] added by Discern Expert.11Data migrated from [employer] on .12Data migrated from [employer] on 01/16/15.13Data migrated from [employer] on 01/16/15. Allergies, Adverse Reactions, Alerts Substance Reaction Severity Status NKFA Active NKDA Active Medications Diltiazem Hydrochloride CD 240 mg/24 hours oral capsule, extended release 240 mg=1 cap, PO, Daily, # 90 cap, 2 Refill(s), Pharmacy: [facility]/pharmacy #[id number] Start Date: 11/08/18 Stop Date: 02/05/19 Status: Ordered Results No data available for this section Immunizations No data available for this section Procedures Procedure Date Related Diagnosis Body Site Status Echocardiogram1 02/15/18 Completed Mastectomy bilateral with right lymph 12/01/12 Completed node biopsy Nuclear medicine cardiovascular study 06/03/09 Completed Appendectomy Completed Bilateral mastectomy Completed Bladder2 Completed Breast biopsy and related procedures Completed Cholecystectomy Completed Colon operation3 Completed Colonoscopy4 Completed Echocardiogram5 Completed Hernia repair Completed Hysterectomy Completed Teeth operation6 Completed Tonsillectomy and adenoidectomy Completed Vaginal delivery Completed 1See Care 42Bladder wgpnztbtot9Nmssssy of bjman3qmuxy bncmtuw6Udsyt 2016 Normal LV size and function LV hypertrophy 

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
--- OUTSIDE RECORDS SUMMARY | 2018-11-25 10:02 | XMS REPORT | CCD ---
:1935 Author Organization [facility] Team Providers Name Role Phone Toy Trujillo Consulting Provider Allergies, Adverse Reactions, Alerts Substance Reaction Status NKDA Active NKFA Active Problem List Condition Effective Dates Status Angina Active Breast ca Active Breast cancer Active cervical fracture < 11/30/2012 Inactive COPD < 11/30/2012 Inactive Diabetes mellitus Active [place] - Hard of hearing Active Hyperlipidemia Active Hypertension Active MRSA1, 2 02/06/2013 Active Murmur Active UTI - Urinary tract infection Resolved MRSA isolated from breast [id number] added by Discern Expert.
--- OUTSIDE RECORDS SUMMARY | 2018-11-25 10:02 | XMS REPORT | CCD ---
:1935 Author Organization [facility] Team Providers Name Role Phone Toy Trujillo Consulting Provider Allergies, Adverse Reactions, Alerts Substance Reaction Status NKDA Active NKFA Active Problem List Condition Effective Dates Status Angina Active Breast ca Active Breast cancer Active Diabetes mellitus Active [place] - Hard of hearing Active Hyperlipidemia Active Hypertension Active MRSA1, 2 02/06/2013 Active Murmur Active UTI - Urinary tract infection Resolved MRSA isolated from breast [id number] added by Discern Expert.
--- OUTSIDE RECORDS SUMMARY | 2018-11-25 10:02 | XMS REPORT | CCD ---
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
--- OUTSIDE RECORDS SUMMARY | 2018-11-25 10:03 | XMS REPORT | Continuity of Care Document ---
:1935 Author Organization [facility] Care Team Providers Name Role Phone MD Arie, Lázaro Unavailable Unavailable Insurance Providers Payer name Policy type / Policy ID Covered democrat ID Policy Nunez Coverage type [place] [facility] [place] [employer] (MEDICARE SUPPLEMENT) [employer] [place] [employer] (MEDICARE [place]PPLE[place]) [place] [employer] [place]: [employer] [place]: [id number] Encounters Encounter Performer Location Date Office Visit Lázaro Sargent MD [facility] May 24, 2014 Cardiology Problems Problem [...] 2012 Active DILTIAZEM HCL CR 240 MG [id number] TAKE ONE TABLET ONCE A DAY Apr [...] Apr 10, sodium, serum SODIUM 139 mmol/L [phone] Apr 10, potassium, serum POTASSIUM 4.2 mmol/L [...] Apr 10, cholesterol, serum CHOLESTEROL 135 mg/dl [phone] Apr 10, triglyceride, TRIGLYCERIDE 115 mg/dl 0-149 [...]
--- OUTSIDE RECORDS SUMMARY | 2018-11-25 10:04 | XMS REPORT | Continuity of Care Document ---
:1935 Author Organization [facility] Care Team Providers Name Role Phone MD Arie, Lázaro Unavailable Unavailable Insurance Providers Payer name Policy type / Policy ID Covered green party ID Policy Nunez Coverage type [place] [employer] [place]MED[place]) [place] [employer] (MEDICARE [place]PPLE[place]) [place] AddressReport MEDICARE [place]: [employer] AddressReport MEDICARE [place]: [employer] Encounters Encounter Performer Location Date Office Visit Lázaro Sargent MD [facility] Nov 22, 2014 Cardiology Problems Problem [...] Date Status DILTIAZEM HCL CR 240 MG [id number] TAKE ONE TABLET ONCE A DAY Apr [...] Apr 10, sodium, serum SODIUM 139 mmol/L [phone] Apr 10, potassium, serum POTASSIUM 4.2 mmol/L [...] Apr 10, cholesterol, serum CHOLESTEROL 135 mg/dl [phone] Apr 10, triglyceride, TRIGLYCERIDE 115 mg/dl 0-149 [...]
--- OUTSIDE RECORDS SUMMARY | 2018-11-25 10:04 | XMS REPORT ---
[...] End Status Dosage System Date Date Anastrozole [facility] [id number] 1 MG Oral Active TAKE 1 TABLET BY MOUTH EVERY DAY Tramadol HCl [facility] 96272350602 50 MG Oral Active (Schedule IV Drug) TAKE 1 TABLET (50 MG) BY MOUTH EVERY 8 HOURS NEEDED Loratadine [facility] 72586431246 10 MG Oral Active TAKE 1 TABLET BY MOUTH EVERY DAY Metformin HCl [facility] 94328246694 500 MG Oral Active TAKE 1 TABLET (500 MG) BY MOUTH 2 TIMES PER DAY WITH MEALS Simvastatin [facility] 31741251931 40 MG Oral Active TAKE 1 TABLET BY MOUTH AT BEDTIME Lisinopril-Hydr [facility] 59128664655 20-25 MG Oral Active TAKE 1 ochlorothiazide TABLET BY MOUTH TWICE A DAY Gabapentin [facility] 16521139293 300 MG Oral Active TAKE 1 CAPSULE BY MOUTH AT BEDTIME. Diltiazem HCl [facility] 75501077458 240 MG Oral Active TAKE ONE ER Beads CAPSULE BY MOUTH EVERY DAY Results No Known Results Summary Purpose eClinicalWorks Submission
--- OUTSIDE RECORDS SUMMARY | 2018-11-25 10:04 | XMS REPORT ---
[...] End Status Dosage System Date Date Anastrozole [facility] [id number] 1 MG Oral Active TAKE 1 TABLET BY MOUTH EVERY DAY Metformin HCl [facility] 81330480758 500 MG Oral Active TAKE 1 TABLET (500 MG) BY MOUTH 2 TIMES PER DAY WITH MEALS Tramadol HCl [facility] 46969129787 50 MG Oral Active (Schedule IV Drug) TAKE 1 TABLET (50 MG) BY MOUTH EVERY 8 HOURS NEEDED Loratadine [facility] 91615357401 10 MG Oral Active TAKE 1 TABLET BY MOUTH EVERY DAY Simvastatin [facility] 80379775990 40 MG Oral Active TAKE 1 TABLET BY MOUTH AT BEDTIME Lisinopril-Hydr [facility] 49386220796 20-25 MG Oral Active TAKE 1 ochlorothiazide TABLET BY MOUTH TWICE A DAY Gabapentin [facility] 72081224434 300 MG Oral Active TAKE 1 CAPSULE BY MOUTH AT BEDTIME. Diltiazem HCl [facility] 74246224482 240 MG Oral Active TAKE ONE ER Beads CAPSULE BY MOUTH EVERY DAY Results No Known Results Summary Purpose eClinicalWorks Submission
[2018-11-25] MEDS ORDERED: HEPARIN 500 UNIT/5 ML SYR IV ONE (10:13)
== END 2018-11-25 10:30 | disposition home or self-care (01) ==
LOC: DS 09:54
PROVIDERS: ATTEND Internal Medicine
DX: C50.919 Malignant neoplasm of unspecified site of unspecified female breast (principal)
CPT/HCPCS: 96523; J1642

== ENCOUNTER 2019-01-06 09:51 | Day surgery (SDC) | payer OTHER ==
--- OUTSIDE RECORDS SUMMARY | 2019-01-06 10:00 | XMS REPORT | Clinical Summary ---
:1935 Author Organization [facility] Address [address] [place] [address] Care Team Providers Name Role Phone Asked, [...] INFLUENZA VACCINE 03/17/2019 Results Not on fileafter 01/05/2018 Insurance Payer Benefit Plan / Subscriber ID Effective Phone Address Type Group Dates MEDICARE MEDICARE PART xxxxxxxxxx 2000-Pres [place], [place] Medicare A AND B ent [facility] xxxxxxxxx 2016-[facility] [employer] TAJIK TAJIK ent Advance Directives Patient has advance care planning documents on file. For more information, please contact:Arvind Peña[address] [place] [id number]
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
--- OUTSIDE RECORDS SUMMARY | 2019-01-06 10:06 | XMS REPORT | CCD ---
:1935 Author Organization [facility] Outpatient Imaging [facility] Care Team Providers Name Role Phone Juanpablo Martin Consulting Provider Allergies, Adverse Reactions, Alerts Substance Reaction Status NKDA Active NKFA Active Problem List Condition Effective Dates Status Angina Active Breast ca Active Breast cancer Active cervical fracture < 11/30/2012 Inactive COPD < 11/30/2012 Inactive Diabetes mellitus Active [place] - Hard of hearing Active Hyperlipidemia Active Hypertension Active MRSA1, 2 02/06/2013 Active Murmur Active UTI - Urinary tract infection Resolved MRSA isolated from breast [id number] added by Discern Expert.
--- OUTSIDE RECORDS SUMMARY | 2019-01-06 10:06 | XMS REPORT | CCD ---
:1935 Author Organization [facility] Team Providers Name Role Phone Toy Trujillo Consulting Provider Allergies, Adverse Reactions, Alerts Substance Reaction Status NKDA Active NKFA Active Problem List Condition Effective Dates Status Angina Active Breast ca Active Breast cancer Active cervical fracture < 11/30/2012 Inactive COPD < 11/30/2012 Inactive Diabetes mellitus Active [place] - Hard of hearing Active Hyperlipidemia Active Hypertension Active MRSA1, 2 02/06/2013 Active Murmur Active UTI - Urinary tract infection Resolved MRSA isolated from breast [id number] added by Discern Expert.
--- OUTSIDE RECORDS SUMMARY | 2019-01-06 10:06 | XMS REPORT | CCD ---
:1935 Author Organization [facility] Team Providers Name Role Phone Toy Trujillo Consulting Provider Allergies, Adverse Reactions, Alerts Substance Reaction Status NKDA Active NKFA Active Problem List Condition Effective Dates Status Angina Active Breast ca Active Breast cancer Active Diabetes mellitus Active [place] - Hard of hearing Active Hyperlipidemia Active Hypertension Active MRSA1, 2 02/06/2013 Active Murmur Active UTI - Urinary tract infection Resolved MRSA isolated from breast [id number] added by Discern Expert.
--- OUTSIDE RECORDS SUMMARY | 2019-01-06 10:07 | XMS REPORT | Continuity of Care Document ---
:1935 Author Organization [facility] Care Team Providers Name Role Phone MD Arie, Lázaro Unavailable Unavailable Insurance Providers Payer name Policy type / Policy ID Covered democrat ID Policy Nunez Coverage type [place] [employer] [place] [employer] [place]MED[place]) [place] [employer] [place]MED[place]) [place] [employer] [place]: [employer] MEDICARE [place]: [employer] Encounters Encounter Performer Location Date Office Visit Lázaro Sargent MD [facility] Nov 22, 2014 Cardiology Problems Problem [...] Date Status DILTIAZEM HCL CR 240 MG [id number] TAKE ONE TABLET ONCE A DAY Apr [...] Apr 10, sodium, serum SODIUM 139 mmol/L [phone] Apr 10, potassium, serum POTASSIUM 4.2 mmol/L [...] Apr 10, cholesterol, serum CHOLESTEROL 135 mg/dl [phone] Apr 10, triglyceride, TRIGLYCERIDE 115 mg/dl 0-149 [...]
--- OUTSIDE RECORDS SUMMARY | 2019-01-06 10:07 | XMS REPORT | Continuity of Care Document ---
:1935 Author Organization [facility] Care Team Providers Name Role Phone MD Arie, Lázaro Unavailable Unavailable Insurance Providers Payer name Policy type / Policy ID Covered libertarian ID Policy Nunez Coverage type [place] [employer] [place]) [place] [employer] (MED[place]ARE [place]PPLE[place]) [place] [employer] [place] [employer] [place]: [employer] Encounters Encounter Performer Location Date Office Visit Lázaro Sargent MD [facility] May 24, 2014 Cardiology Problems Problem Effective [...] 2012 Active DILTIAZEM HCL CR 240 MG [id number] TAKE ONE TABLET ONCE A DAY Apr [...] blood pressure, diastolic, sitting, left arm BP AMRIE SIT L 50 mm Hg Apr 09, [...] blood pressure, diastolic, sitting, right arm BP MRAIE SIT R 84 mmHg Oct 18, 2012 [...] Apr 10, sodium, serum SODIUM 139 mmol/L [phone] Apr 10, potassium, serum POTASSIUM 4.2 mmol/L [...] Apr 10, cholesterol, serum CHOLESTEROL 135 mg/dl [phone] Apr 10, triglyceride, TRIGLYCERIDE 115 mg/dl 0-149 [...]
[2019-01-06] MEDS ORDERED: HEPARIN 500 UNIT/5 ML SYR IV ONE (10:08)
--- OUTSIDE RECORDS SUMMARY | 2019-01-06 10:08 | XMS REPORT ---
[...] End Status Dosage System Date Date Anastrozole [facility] [id number] 1 MG Oral Active TAKE 1 TABLET BY MOUTH EVERY DAY Metformin HCl [facility] [id number] 500 MG Oral Active TAKE 1 TABLET (500 MG) BY MOUTH 2 TIMES PER DAY WITH MEALS Tramadol HCl [facility] [id number] 50 MG Oral Active (Schedule IV Drug) TAKE 1 TABLET (50 MG) BY MOUTH EVERY 8 HOURS NEEDED Loratadine [facility] 28312185875 10 MG Oral Active TAKE 1 TABLET BY MOUTH EVERY DAY Simvastatin [facility] 78913070438 40 MG Oral Active TAKE 1 TABLET BY MOUTH AT BEDTIME Lisinopril-Hydr [facility] 14022601993 20-25 MG Oral Active TAKE 1 ochlorothiazide TABLET BY MOUTH TWICE A DAY Gabapentin [facility] [id number] 300 MG Oral Active TAKE 1 CAPSULE BY MOUTH AT BEDTIME. Diltiazem HCl [facility] [id number] 240 MG Oral Active TAKE ONE ER Beads CAPSULE BY MOUTH EVERY DAY Results No Known Results Summary Purpose eClinicalWorks Submission
--- OUTSIDE RECORDS SUMMARY | 2019-01-06 10:08 | XMS REPORT ---
[...] End Status Dosage System Date Date Anastrozole [facility] [id number] 1 MG Oral Active TAKE 1 TABLET BY MOUTH EVERY DAY Tramadol HCl [facility] 25129996988 50 MG Oral Active (Schedule IV Drug) TAKE 1 TABLET (50 MG) BY MOUTH EVERY 8 HOURS NEEDED Loratadine [facility] 05133001140 10 MG Oral Active TAKE 1 TABLET BY MOUTH EVERY DAY Metformin HCl [facility] 88046616661 500 MG Oral Active TAKE 1 TABLET (500 MG) BY MOUTH 2 TIMES PER DAY WITH MEALS Simvastatin [facility] 48863726673 40 MG Oral Active TAKE 1 TABLET BY MOUTH AT BEDTIME Lisinopril-Hydr [facility] 01322942078 20-25 MG Oral Active TAKE 1 ochlorothiazide TABLET BY MOUTH TWICE A DAY Gabapentin [facility] 09746423534 300 MG Oral Active TAKE 1 CAPSULE BY MOUTH AT BEDTIME. Diltiazem HCl [facility] [id number] 240 MG Oral Active TAKE ONE ER Beads CAPSULE BY MOUTH EVERY DAY Results No Known Results Summary Purpose eClinicalWorks Submission
[2019-01-06 10:42] LABS: Albumin 3.3 g/dL (3.4-5.0); Bilirubin Total 0.5 mg/dL (0.2-1.0); Potassium 3.7 mmol/L (3.5-5.1); Protein, Total 6.1 g/dL (6.4-8.2)
== END 2019-01-06 10:05 | disposition home or self-care (01) ==
LOC: DS 09:51
PROVIDERS: ATTEND Internal Medicine
DX: Z45.2 Encounter for adjustment and management of vascular access device (principal); C50.919 Malignant neoplasm of unspecified site of unspecified female breast
CPT/HCPCS: 36415; 80061; 80053; 83880; 96523; J1642

== ENCOUNTER 2019-03-24 09:45 | Day surgery (SDC) | payer OTHER ==
--- OUTSIDE RECORDS SUMMARY | 2019-03-24 09:47 | XMS REPORT | Clinical Summary ---
:1935 Author Organization [facility] Address [address] [place] [address] Care Team Providers Name Role Phone Asked, [...] VACCINE (1 of 2 - PCV13) 2000 INFLUENZA VACCINE 03/17/2019 Results Not on fileafter 03/23/2018 Insurance Payer Benefit Plan / Subscriber ID Effective Phone Address Type Group Dates MEDICARE MEDICARE PART xxxxxxxxxx 2000-Pres [place], [place] Medicare A AND B ent [facility] xxxxxxxxx 2016-Pres Commercial CHADIAN CHADIAN ent Advance Directives Patient has advance care planning documents on file. For more information, please contact:Arvind Peña[address] [place] [address]
--- OUTSIDE RECORDS SUMMARY | 2019-03-24 09:50 | XMS REPORT | Continuity of Care Document ---
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 [id number] Juanpablo Martin 11/25 11/26 [facility] Outpatient Services [facility] EC [id number] Diana 05/23 05/23 [facility] Emergency 4 Brusator /2013 [facility] [id number] Lauro Lopez, 05/24 05/24 [facility] Visit 12788 MD Medical [facility] Cardiology [facility] [id number] Lauro Lopez, 11/22 11/22 [facility] Visit 39077 Medical [facility] Cardiology Outpatient [id number] CARDIOVASCU 05/24 [facility] 1 [place]AR [place] VISIT Outpatient [id number] LAURO LOPEZ 05/30 [facility] Outpatient [id number] Lauro Lopez 11/20 11/21 [facility] Outpatient [id number] LAURO LOPEZ 12/11 Active [facility] Diag [id number] Juanpablo Martin 05/02 05/03 [facility] Outpatient Services [facility] Outpt Diag [id number] Geovanni 05/05 05/06 [facility] Outpatient Services [facility] [place] Outpatient [id number] GEOVANNI 05/16 [facility] [id number] Juanpablo Martin 05/16 05/17 [facility] [place] [facility] Outpatient [id number] GEOVANNI 06/11 Active [facility] 6 [place] Outpatient [id number] LAURO JESSICA 06/11 Active [facility] [place] Outpatient [id number] GÉNESIS 07/08 Active [facility] 8 [place] IS Outpatient [id number] CARDIOVASCU 11/07 Active [facility] 1 LAR [place] VISIT Outpatient [id number] CARDIOVASCU 12/12 Active [facility] 0 LAR [place] VISIT Outpatient [id number] LAURO JESSICA 12/17 Active [facility] [place] Outpatient [id number] LAURO JESSICA 12/19 Active [facility] [place] Outpatient [id number] GÉNESIS 01/01 Active [facility] 3 [place] IS Outpatient [id number] LAURO JESSICA 01/09 Active [facility] Outpatient [id number] Juanpablo Martin 01/09 01/[address] [facility] [address] [facility] Phone [id number] 07/02 07/04 Cardiology Message [facility] Phone [id number] 07/03 07/05 MH Cardiology Message [facility] Outpatient [id number] LAURO JESSICA 07/17 Active [facility] Outpatient [id number] Lauro Jessica 07/17 07/18 Cardiology [facility] Phone [id number] 08/25 08/27 MH Cardiology Message [facility] Outpatient [id number] CARDIOVASCU 01/15 Active [facility] 5 LAR LAB [place] VISIT Outpatient [id number] LAURO JESSICA 01/15 Active [facility] [place] MG Ambulatory [id number] 01/15 01/15 Cardiology Pre-Reg [facility] Ambulatory [id number] Lauro Jessica 01/15 01/15 Cardiology Pre-Reg [facility] Outpatient [id number] CARDIOVASCU 02/15 Active [facility] LAR LAB [place] VISIT Outpatient [id number] LAURO JESSICA 02/15 Active [facility] MG Outpatient [id number] 02/15 02/16 [facility] [id number] Lauro Jessica 02/15 02/16 Cardiology [facility] Outpatient [id number] LAURO JESSICA 07/19 Active [facility] [place] MG Outpatient [id number] Lauro Jessica 07/19 07/20 [facility] [id number] 07/23 07/25 [facility] [id number] 07/28 07/30 [facility] [id number] 11/08 11/10 Cardiology Message [facility] Outpatient [id number] CARDIOVASCU 01/17 Active [facility] 1 LAR LAB [place] VISIT Outpatient [id number] 02/11 Active [facility] 0 -VISIT, [place] CARDIOVASCU LAR LAB Outpatient [id number] Lauro Lopez 02/11 Active [facility] MG Outpatient [id number] Lauro Lopez 02/11 02/12 [facility] [id number] Lauro Lopez 02/11 02/12 Cardiology [facility] Outpatient [id number] Kalin 02/22 Active [facility] [place] [facility] Outpatient [id number] Kalin 02/22 02/23 Cardiology 5 [place] [facility] Outpatient [id number] 08/05 Active [facility] 4 -VISIT, [place] CARDIOVASCU LAR LAB Outpatient [id number] Lauro Lopez 08/05 [facility] [place] Procedures Procedure Code Date Perfomer Comments Source Echocardiogram<sup>1 [id number] See Care 4 Medical </sup> 8 Group smoking/tobacco 14 yes Medical cessation, patient 5 Group education and counseling smoking/tobacco 14 yes Medical cessation, patient 4 Group education and counseling smoking/tobacco 14 Smokinng Medical cessation, patient 4 Cessation Group education and Handout Provided counseling Mastectomy bilateral [id number] Medical with right lymph 3 Group node biopsy Mastectomy bilateral [id number] [facility] with right lymph 3 [facility] node biopsy Mastectomy bilateral [id number] [facility] with right lymph 3 City node biopsy Mastectomy bilateral [id number] [facility] with right lymph 3 [place] node biopsy Mastectomy bilateral [id number] [facility] with right lymph 3 Medical node biopsy [place] [facility] [id number] Medical cardiovascular study 9 Group Appendectomy [id number] Medical Group Bilateral mastectomy [id number] Medical Group Bladder<sup>1</sup> [id number] Bladder Medical suspension Group Breast biopsy and [id number] Medical related procedures Group Cholecystectomy [id number] Medical Group Colon [id number] [place] of bleed Medical operation<sup>2</sup Group > Colonoscopy<sup>3</s 62923103 times several Medical up> Group Echocardiogram<sup>4 [id number] November 07, 2016 Medical </sup> Normal LV size and function Group LV hypertrophy 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 m/s with mean gradient of 25 and valve area 0.7 Diastolic dysfunction Hernia repair [id number] Medical Group Hysterectomy [id number] Medical Group Teeth [id number] dental implant Medical operation<sup>5</sup Group > Tonsillectomy and 57466924 Medical adenoidectomy Group Vaginal delivery [id number] Medical Group Appendectomy [id number] [facility] Bilateral mastectomy [id number] [facility] Bladder<sup>1</sup> [id number] Bladder [facility] suspension [facility] Breast biopsy and [id number] [facility] related procedures [facility] Cholecystectomy [id number] [facility] Colon [id number] [place] of bleed [facility] operation<sup>2</sup [place] > Colonoscopy<sup>3</s 30269403 times several OPI up> [facility] Echocardiogram<sup>4 [id number] November 07, 2016 OP[facility] </sup> Normal LV size and function [facility] LV hypertrophy 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 m/s with mean gradient of 25 and valve area 0.7 Diastolic dysfunction Hernia repair [id number] [facility] Hysterectomy [id number] [facility] Teeth 421166722 dental implant OPI operation<sup>5</sup [place] > Tonsillectomy and 02601391 OPI adenoidectomy [facility] Vaginal delivery [id number] [facility] Bladder<sup>2</sup> [id number] Bladder Medical suspension Group Colon [id number] [place] of bleed Medical operation<sup>3</sup Group > Colonoscopy<sup>4</s 11818261 times several Medical up> Group Echocardiogram<sup>5 [id number] November 07, 2016 Medical </sup> Normal LV size and function Group LV hypertrophy 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 m/s with mean gradient of 25 and valve area 0.7 Diastolic dysfunction Teeth 008143630 dental implant Medical operation<sup>6</sup Group > Appendectomy [id number] [facility] Bilateral mastectomy 79679152 [facility] Bladder<sup>1</sup> 403002828 Bladder [facility] Breast biopsy and [id number] [facility] related procedures [facility] Cholecystectomy [id number] [facility] Colon [id number] [place]autery of bleed [facility] operation<sup>2</sup City > Colonoscopy<sup>3</s 16251530 times several [facility] Hernia repair [id number] [facility] Hysterectomy 689894357 [facility] Teeth 834325416 dental implant [facility] operation<sup>4</sup City > Tonsillectomy and 41592288 [facility] Vaginal delivery 827980387 [facility] Teeth 556987413 dental implant OPI operation<sup>4</sup [place] > Echocardiogram 48666905 Medical Group Appendectomy 49392129 OPI [place] Bilateral mastectomy 21102671 [facility] [place] Bladder<sup>1</sup> 116997419 Bladder [facility] suspension [place] Breast biopsy and [id number] [facility] related procedures [facility] Cholecystectomy [id number] [facility] [place] Colon [id number] [place]autery of bleed OP[facility] operation<sup>2</sup [place] > Colonoscopy<sup>3</s 58655715 times several [facility] up> [place] Hernia repair [id number] [facility] [place] Hysterectomy [id number] [facility] [place] Teeth 404654729 dental implant OPID operation<sup>4</sup [place] > Tonsillectomy and 25398098 OP[facility] adenoidectomy [place] Vaginal delivery 475447687 [facility] [place] Appendectomy 84757022 [facility] Bilateral mastectomy 40918696 [facility] Bladder<sup>1</sup> 737772250 Bladder [facility] Breast biopsy and 228757674 [facility] procedures [facility] Cholecystectomy [id number] [facility] Colon 42271127 Cautery of bleed [facility] operation<sup>2</sup Medical > Center Colonoscopy<sup>3</s 94236008 times several [facility] Hernia repair [id number] [facility] Hysterectomy 395951701 [facility] Teeth 449667527 dental implant [facility]<sup>4</sup Medical > Center Tonsillectomy and 66102942 [facility] Vaginal delivery 571042717 [facility] Assessment and Plan No Data Provided for This Section Plan of Care No Data Provided for This Section Social History Social History Date Source Social History TypeResponse 02/22/2019 [facility] Group Smoking Status Former smoker; Exposure to Tobacco Smoke None; Cigarette Smoking Last 365 Days No; Reg Smoking Cessation Counseling No1 entered on: 02/22/19 1per pt quit 9 years ago Social History TypeResponse 01/09/2017 [facility] Smoking Status Former smoker; Exposure to Tobacco Smoke None; Cigarette Smoking Last 365 Days No; Reg Smoking Cessation Counseling No1 1per pt quit 9 years ago Social History TypeResponse 05/16/2016 [facility] Smoking Status Former smoker; Exposure to Tobacco Smoke None; Cigarette Smoking Last 365 Days No; Reg Smoking Cessation Counseling No1 1per pt quit 9 years ago Social History TypeResponse 05/05/2016 [facility] Smoking Status Former smoker; Exposure to Tobacco Smoke None; Cigarette Smoking Last 365 Days No; Reg Smoking Cessation Counseling No Social History TypeResponse 05/30/2015 [facility] Smoking Status Former smoker; Exposure to Tobacco Smoke None; Cigarette Smoking Last 365 Days No; Reg Smoking Cessation Counseling No Family History No Data Provided for This Section Advance Directives No Data Provided for This Section Functional Status No Data Provided for This Section
--- OUTSIDE RECORDS SUMMARY | 2019-03-24 09:51 | XMS REPORT | Summary of Care ---
:1935 Author Organization [facility] Cardiology [facility] Address [address] [place] [address]- Encounter HQ Encntr_alias(FIN) [id number] Date(s): 07/28/18 - 07/29/18 [facility] [address] [place] [address]- [phone] Vital Signs No data available for this section Problem List Condition Effective Dates Status Health Status Informant Angina(Confirmed) Resolved Anxiety(Confirmed) Active Aortic stenosis, moderate(Confirmed) Active Chronic obstructive lung Active disease(Confirmed)1 Chronic renal impairment(Confirmed)2 05/11/13 Active Compression fracture(Confirmed) Active Vertebral compression Active fracture(Confirmed) 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 Diabetes mellitus(Confirmed) Active [place] - Hard of hearing(Confirmed) Active Hyperlipidemia(Confirmed)4 Active Hypertension(Confirmed) Active Hypertensive disorder(Confirmed)5 Active Long-term drug therapy6 Active Malignant tumor of breast7 11/09/12 Active 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)9, 10 02/06/13 Active Murmur(Confirmed) Active Peripheral nerve [id number] 11/09/13 Active Renal insufficiency(Confirmed) Active Type 2 diabetes Active mellitus(Confirmed)12 UTI - Urinary tract Resolved infection(Confirmed) Vitamin D [id number] Active 1Data migrated from [employer] on 01/16/15.2Data migrated from [employer] on 01/16/15.3Data migrated from [employer] on 01/16/15.4Data migrated from [employer] on 01/16/15.5Data migrated from [employer] on 01/16/15.6Data migrated from [employer] on 01/16/15.7Data migrated from [employer] on 01/16/15.8Data migrated from [employer] on 01/16/15. MRSA isolated from breast [id number] added by Discern Expert.11Data migrated from [employer] on .12Data migrated from [employer] on 01/16/15.13Data migrated from [employer] on 01/16/15. Allergies, Adverse Reactions, Alerts No Known Medication Allergies Substance Reaction Severity Status NKFA Active Medications No data available for this section Results No data available for this section Immunizations No data available for this section Procedures Procedure Date Related Diagnosis Body Site Status Echocardiogram1 02/15/18 Completed Mastectomy bilateral with right lymph 12/01/12 Completed node biopsy Nuclear medicine cardiovascular study 06/03/09 Completed Appendectomy Completed Bilateral mastectomy Completed Bladder2 Completed Breast biopsy and related procedures Completed Cholecystectomy Completed Colon operation3 Completed Colonoscopy4 Completed Echocardiogram5 Completed Echocardiogram Completed Hernia repair Completed Hysterectomy Completed Teeth operation6 Completed Tonsillectomy and adenoidectomy Completed Vaginal delivery Completed 1See Care 42Bladder nfnbsrogun5Becsyly of xydmg2auvuw lgeyiqs3Rsspj 2016 Normal LV size and function LV hypertrophy 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
--- OUTSIDE RECORDS SUMMARY | 2019-03-24 09:51 | XMS REPORT | Summary of Care ---
:1935 Author Organization [facility] Cardiology [facility] Address [address] [place] [address]- Encounter HQ Encntr_alias(FIN) [id number] Date(s): 07/23/18 - 07/24/18 [facility] 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 Diabetes mellitus(Confirmed) Active [place] - Hard of hearing(Confirmed) Active Hyperlipidemia(Confirmed)4 Active Hypertension(Confirmed) Active Hypertensive disorder5 Active Long-term drug therapy6 Active Malignant tumor of breast7 11/09/12 Active 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)9, 10 02/06/13 Active Murmur(Confirmed) Active Peripheral nerve [id number] 11/09/13 Active Renal insufficiency(Confirmed) Active Type 2 diabetes Active mellitus(Confirmed)12 UTI - Urinary tract Resolved infection(Confirmed) Vitamin D [id number] Active 1Data migrated from [employer] on 01/16/15.2Data migrated from [employer] on 01/16/15.3Data migrated from [employer] on 01/16/15.4Data migrated from [employer] on 01/16/15.5Data migrated from [employer] on 01/16/15.6Data migrated from [employer] on 01/16/15.7Data migrated from [employer] on 01/16/15.8Data migrated from [employer] on 01/16/15. MRSA isolated from breast [id number] added by Discern Expert.11Data migrated from [employer] on .12Data migrated from [employer] on 01/16/15.13Data migrated from [employer] on 01/16/15. 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
--- OUTSIDE RECORDS SUMMARY | 2019-03-24 09:51 | XMS REPORT | Summary of Care ---
:1935 Author Organization [facility] Cardiology [facility] [place] Address [address] [place] [address]- Encounter HQ Encntr_alias(FIN) [id number] Date(s): 02/11/19 - 02/11/19 [facility] [address] [place] [address]- [phone] Discharge Disposition: Home or Self Care Attending Physician: Lázaro Sargent MD Vital Signs No data available for this section Problem List Condition Effective Dates Status Health Status Informant Angina(Confirmed) Resolved Anxiety(Confirmed) Active Aortic stenosis, moderate(Confirmed) Active Chronic obstructive lung Active disease(Confirmed)1 Chronic renal impairment(Confirmed)2 05/11/13 Active Compression fracture(Confirmed) Active Vertebral compression Active fracture(Confirmed) 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 Diabetes mellitus(Confirmed) Active [place] - Hard of hearing(Confirmed) Active Hyperlipidemia(Confirmed)4 Active Hypertension(Confirmed) Active Hypertensive disorder(Confirmed)5 Active Long-term drug therapy6 Active Malignant tumor of breast7 11/09/12 Active 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)9, 10 02/06/13 Active Murmur(Confirmed) Active Peripheral nerve buytgem57 11/09/13 Active Renal insufficiency(Confirmed) Active Type 2 diabetes Active mellitus(Confirmed)12 UTI - Urinary tract Resolved infection(Confirmed) Vitamin D qaqdooqjtz11 Active 1Data migrated from [employer] on 01/16/15.2Data migrated from [employer] on 01/16/15.3Data migrated from [employer] on 01/16/15.4Data migrated from [employer] on 01/16/15.5Data migrated from [employer] on 01/16/15.6Data migrated from [employer] on 01/16/15.7Data migrated from [employer] on 01/16/15.8Data migrated from [employer] on 01/16/15. MRSA isolated from breast bbplhqw71Mhzmiiv added by Discern Expert.11Data migrated from [employer] on .12Data migrated from [employer] on 01/16/15.13Data migrated from [employer] on 01/16/15. 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
--- OUTSIDE RECORDS SUMMARY | 2019-03-24 09:51 | XMS REPORT | Summary of Care ---
:1935 Author Organization [facility] Cardiology [facility] Address [address] [place] [address]- Encounter HQ Encntr_aliabiola(FIN) [id number] Date(s): 02/22/19 - 02/22/19 [facility] [address] [place] [address]- [phone] Discharge Disposition: Home or Self Care Attending Physician: Kalin Mojica MD Vital Signs Most recent to oldest [Reference Range]: 1 Height 154.94 cm (02/22/19 2:35 PM) Blood Pressure [90-140/60-90 mmHg] 158/52 mmHg *HI* (02/22/19 2:35 PM) Peripheral Pulse Rate [60-100 bpm] 72 bpm (02/22/19 2:35 PM) Weight 64.545 kg (02/22/19 2:35 PM) Body Mass Index 26.89 m2 (02/22/19 2:35 PM) Problem List Condition Effective Dates Status Health Status Informant Angina(Confirmed) Resolved Anxiety(Confirmed) Active Aortic stenosis, moderate(Confirmed) Active Chronic obstructive lung Active disease(Confirmed)1 Chronic renal impairment(Confirmed)2 05/11/13 Active Compression fracture(Confirmed) Active Vertebral compression Active fracture(Confirmed) 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 Diabetes mellitus(Confirmed) Active [place] - Hard of hearing(Confirmed) Active Hyperlipidemia(Confirmed)4 Active Hypertension(Confirmed) Active Hypertensive disorder(Confirmed)5 Active Long-term drug therapy6 Active Malignant tumor of breast7 11/09/12 Active 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)9, 10 02/06/13 Active Murmur(Confirmed) Active Peripheral nerve yagydhk37 11/09/13 Active Renal insufficiency(Confirmed) Active Type 2 diabetes Active mellitus(Confirmed)12 UTI - Urinary tract Resolved infection(Confirmed) Vitamin D rsyssqufkx27 Active 1Data migrated from [employer] on 01/16/15.2Data migrated from [employer] on 01/16/15.3Data migrated from [employer] on 01/16/15.4Data migrated from [employer] on 01/16/15.5Data migrated from [employer] on 01/16/15.6Data migrated from [employer] on 01/16/15.7Data migrated from [employer] on 01/16/15.8Data migrated from [employer] on 01/16/15. MRSA isolated from breast tgkxnra02Bymqtlm added by Discern Expert.11Data migrated from [employer] on .12Data migrated from [employer] on 01/16/15.13Data migrated from [employer] on 01/16/15. 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
--- OUTSIDE RECORDS SUMMARY | 2019-03-24 09:51 | XMS REPORT | Summary of Care ---
:1935 Author Organization [facility] Cardiology [facility] Address [address] [place] [address]- Encounter HQ Yolandantr_abby(FIN) [id number] Date(s): 02/11/19 - 02/11/19 [facility] [address] [place] [address]- [phone] Discharge Disposition: Home or Self Care Attending Physician: Lzáaro Sargent MD Vital Signs Most recent to oldest [Reference Range]: 1 Height 154.94 cm (02/11/19 8:44 AM) Blood Pressure [90-140/60-90 mmHg] 158/84 mmHg *HI* (02/11/19 8:44 AM) Weight 65.17 kg (02/11/19 8:44 AM) Body Mass Index 27.15 m2 (02/11/19 8:44 AM) Problem List Condition Effective Dates Status Health Status Informant Angina(Confirmed) Resolved Anxiety(Confirmed) Active Aortic stenosis, moderate(Confirmed) Active Chronic obstructive lung Active disease(Confirmed)1 Chronic renal impairment(Confirmed)2 05/11/13 Active Compression fracture(Confirmed) Active Vertebral compression Active fracture(Confirmed) 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 Diabetes mellitus(Confirmed) Active [place] - Hard of hearing(Confirmed) Active Hyperlipidemia(Confirmed)4 Active Hypertension(Confirmed) Active Hypertensive disorder(Confirmed)5 Active Long-term drug therapy6 Active Malignant tumor of breast7 11/09/12 Active 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)9, 10 02/06/13 Active Murmur(Confirmed) Active Peripheral nerve 11/09/13 Active Renal insufficiency(Confirmed) Active Type 2 diabetes Active mellitus(Confirmed)12 UTI - Urinary tract Resolved infection(Confirmed) Vitamin D yqehurlxgc92 Active 1Data migrated from [employer] on 01/16/15.2Data migrated from [employer] on 01/16/15.3Data migrated from [employer] on 01/16/15.4Data migrated from [employer] on 01/16/15.5Data migrated from [employer] on 01/16/15.6Data migrated from [employer] on 01/16/15.7Data migrated from [employer] on 01/16/15.8Data migrated from [employer] on 01/16/15. MRSA isolated from breast obwcvnv41Kwezqsv added by Discern Expert.11Data migrated from [employer] on .12Data migrated from [employer] on 01/16/15.13Data migrated from [employer] on 01/16/15. Allergies, Adverse Reactions, Alerts No Known Medication Allergies Substance Reaction Severity Status NKFA Active Medications olmesartan 40 mg oral tablet 40 mg=1 tab, PO, Daily, 0 Refill(s) Start Date: 02/11/19 Status: Orderedomeprazole 20 mg oral delayed release capsule 20 mg=1 cap, PO, Daily, 0 Refill(s) Start Date: 02/11/19 Status: Ordered Results No data available for [...] Completed Vaginal delivery Completed 1See Care 42Bladder bfgdbkcmjo2Nrdnamn of goepq8srlcg luzfqtt7Grzzu 2016 Normal LV size and function LV hypertrophy 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 m/s with mean gradient of 25 and valve area 0.7 Diastolic omxlqdohfpe3wtcyhh implant Social History Social History Type Response Smoking Status Former smoker; Exposure to Tobacco Smoke None; Cigarette Smoking Last 365 Days No; Reg Smoking Cessation Counseling No1 entered on: 02/11/19 1per pt quit 9 years ago Assessment and Plan No data available for this section
--- OUTSIDE RECORDS SUMMARY | 2019-03-24 09:52 | XMS REPORT | CCD ---
:1935 Author Organization [facility] Team Providers Name Role Phone Toy Trujillo Consulting Provider Allergies, Adverse Reactions, Alerts Substance Reaction Status NKDA Active NKFA Active Problem List Condition Effective Dates Status Angina Active Breast ca Active Breast cancer Active cervical fracture < 11/30/2012 Inactive COPD < 11/30/2012 Inactive Diabetes mellitus Active [place] - Hard of hearing Active Hyperlipidemia Active Hypertension Active MRSA1, 2 02/06/2013 Active Murmur Active UTI - Urinary tract infection Resolved MRSA isolated from breast jcqmwlu5Qfqbzpv added by Discern Expert.
--- OUTSIDE RECORDS SUMMARY | 2019-03-24 09:52 | XMS REPORT | CCD ---
:1935 Author Organization [facility] Team Providers Name Role Phone Toy Trujillo Consulting Provider Allergies, Adverse Reactions, Alerts Substance Reaction Status NKDA Active NKFA Active Problem List Condition Effective Dates Status Angina Active Breast ca Active Breast cancer Active Diabetes mellitus Active [place] - Hard of hearing Active Hyperlipidemia Active Hypertension Active MRSA1, 2 02/06/2013 Active Murmur Active UTI - Urinary tract infection Resolved MRSA isolated from breast ahfqyoz5Mruivae added by Discern Expert.
--- OUTSIDE RECORDS SUMMARY | 2019-03-24 09:52 | XMS REPORT | Summary of Care ---
:1935 Author Organization [facility] Cardiology [facility] Address [address] [place] [address]- Encounter HQ Hedy_abby(FIN) [id number] Date(s): 07/19/18 - 07/19/18 [facility] [address] [place] [address]- [phone] Discharge Disposition: Home or Self Care Attending Physician: Lázaro Sargent MD Vital Signs Most recent to oldest [Reference Range]: 1 Height 154.94 cm (07/19/18 3:40 PM) Blood Pressure [90-140/60-90 mmHg] 120/64 mmHg (07/19/18 3:40 PM) Weight 63.239 kg (07/19/18 3:40 PM) Body Mass Index 26.34 m2 (07/19/18 3:40 PM) Problem List Condition Effective Dates Status Health Status Informant Angina(Confirmed) Resolved Anxiety(Confirmed) Active Aortic stenosis, moderate(Confirmed) Active Chronic obstructive lung Active disease(Confirmed)1 Chronic renal impairment(Confirmed)2 05/11/13 Active Compression fracture(Confirmed) Active Vertebral compression Active fracture(Confirmed) 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 Diabetes mellitus(Confirmed) Active [place] - Hard of hearing(Confirmed) Active Hyperlipidemia(Confirmed)4 Active Hypertension(Confirmed) Active Hypertensive disorder5 Active Long-term drug therapy6 Active Malignant tumor of breast7 11/09/12 Active 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)9, 10 02/06/13 Active Murmur(Confirmed) Active Peripheral nerve wycirbt57 11/09/13 Active Renal insufficiency(Confirmed) Active Type 2 diabetes Active mellitus(Confirmed)12 UTI - Urinary tract Resolved infection(Confirmed) Vitamin D tdvxpaseqj66 Active 1Data migrated from [employer] on 01/16/15.2Data migrated from [employer] on 01/16/15.3Data migrated from [employer] on 01/16/15.4Data migrated from [employer] on 01/16/15.5Data migrated from [employer] on 01/16/15.6Data migrated from [employer] on 01/16/15.7Data migrated from [employer] on 01/16/15.8Data migrated from [employer] on 01/16/15. MRSA isolated from breast iuloqll13Ycvicte added by Discern Expert.11Data migrated from [employer] on .12Data migrated from [employer] on 01/16/15.13Data migrated from [employer] on 01/16/15. Allergies, Adverse Reactions, Alerts No Known Medication Allergies Substance Reaction Severity Status NKFA Active Medications aspirin 81 mg tablet, enteric coated 81 mg=1 tab, PO, Daily Start Date: 07/19/18 Status: OrderedCalcium 1200 mg Calcium 1200 mg, 1 tab, PO, Daily Start Date: 07/19/18 Status: Orderedlosartan 100 mg oral tablet 100 mg=1 tab, PO, Daily Start Date: 07/19/18 Status: Orderedmultivitamin 1 tab, PO, Daily Start Date: 07/19/18 Status: Ordered Results No data available for [...] Completed Vaginal delivery Completed 1See Care 42Bladder jdsvivtmnj2Vuyluqe of vixqd5ggyxo fuqwgnw7Lujdm 2016 Normal LV size and function LV hypertrophy 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 m/s with mean gradient of 25 and valve area 0.7 Diastolic ahkhiamtsku2iiuxip implant Social History Social History Type Response Smoking Status Former smoker; Exposure to Tobacco Smoke None; Cigarette Smoking Last 365 Days No; Reg Smoking Cessation Counseling No1 entered on: 07/19/18 1per pt quit 9 years ago Assessment and Plan No data available for this section
--- OUTSIDE RECORDS SUMMARY | 2019-03-24 09:52 | XMS REPORT | CCD ---
:1935 Author Organization [facility] Outpatient Imaging [facility] Care Team Providers Name Role Phone Juanpablo Martin Consulting Provider Allergies, Adverse Reactions, Alerts Substance Reaction Status NKDA Active NKFA Active Problem List Condition Effective Dates Status Angina Active Breast ca Active Breast cancer Active cervical fracture < 11/30/2012 Inactive COPD < 11/30/2012 Inactive Diabetes mellitus Active [place] - Hard of hearing Active Hyperlipidemia Active Hypertension Active MRSA1, 2 02/06/2013 Active Murmur Active UTI - Urinary tract infection Resolved MRSA isolated from breast mwjiznb6Tqapdjz added by Discern Expert.
--- OUTSIDE RECORDS SUMMARY | 2019-03-24 09:53 | XMS REPORT ---
[...] Status Dosage System Date Date Anastrozole [facility] [id number] 1 MG Oral Active TAKE 1 TABLET BY MOUTH EVERY DAY Tramadol HCl [facility] [id number] 50 MG Oral Active (Schedule IV Drug) TAKE 1 TABLET (50 MG) BY MOUTH EVERY 8 HOURS NEEDED Loratadine [facility] [id number] 10 MG Oral Active TAKE 1 TABLET BY MOUTH EVERY DAY Metformin HCl [facility] [id number] 500 MG Oral Active TAKE 1 TABLET (500 MG) BY MOUTH 2 TIMES PER DAY WITH MEALS Simvastatin [facility] [id number] 40 MG Oral Active TAKE 1 TABLET BY MOUTH AT BEDTIME Lisinopril-Hydr [facility] [id number] 20-25 MG Oral Active TAKE 1 ochlorothiazide TABLET BY MOUTH TWICE A DAY Gabapentin [facility] [id number] 300 MG Oral Active TAKE 1 CAPSULE BY MOUTH AT BEDTIME. Diltiazem HCl [facility] [id number] 240 MG Oral Active TAKE ONE ER Beads CAPSULE BY MOUTH EVERY DAY Results No Known Results Summary Purpose eClinicalWorks Submission
--- OUTSIDE RECORDS SUMMARY | 2019-03-24 09:53 | XMS REPORT ---
[...] Status Dosage System Date Date Anastrozole [facility] [id number] 1 MG Oral Active TAKE 1 TABLET BY MOUTH EVERY DAY Metformin HCl [facility] [id number] 500 MG Oral Active TAKE 1 TABLET (500 MG) BY MOUTH 2 TIMES PER DAY WITH MEALS Tramadol HCl [facility] [id number] 50 MG Oral Active (Schedule IV Drug) TAKE 1 TABLET (50 MG) BY MOUTH EVERY 8 HOURS NEEDED Loratadine [facility] [id number] 10 MG Oral Active TAKE 1 TABLET BY MOUTH EVERY DAY Simvastatin [facility] [id number] 40 MG Oral Active TAKE 1 TABLET BY MOUTH AT BEDTIME Lisinopril-Hydr [facility] [id number] 20-25 MG Oral Active TAKE 1 ochlorothiazide TABLET BY MOUTH TWICE A DAY Gabapentin [facility] [id number] 300 MG Oral Active TAKE 1 CAPSULE BY MOUTH AT BEDTIME. Diltiazem HCl [facility] [id number] 240 MG Oral Active TAKE ONE ER Beads CAPSULE BY MOUTH EVERY DAY Results No Known Results Summary Purpose eClinicalWorks Submission
--- OUTSIDE RECORDS SUMMARY | 2019-03-24 09:53 | XMS REPORT ---
:1935 Author [facility] Address [address] [place] [address] Care Team Providers Name Role Phone Unavailable Unavailable Unavailable Problems This patient has no known problems. Allergies, Adverse Reactions, Alerts This patient has no known allergies or adverse reactions. Medications This patient has no known medications.
--- OUTSIDE RECORDS SUMMARY | 2019-03-24 09:53 | XMS REPORT | Continuity of Care Document ---
:1935 Author Organization [facility] Care Team Providers Name Role Phone MD Arie, Lázaro Unavailable Unavailable Insurance Providers Payer name Policy type / Policy ID Covered libertarian ID Policy [place]unez [place] [employer] [place]) [place] [employer] [place] [employer] Encounters Encounter Performer Location Date Office Visit Lázaro Sargent MD [facility] May 24, 2014 Cardiology Problems Problem Effective [...] 2012 Active DILTIAZEM HCL CR 240 MG [id number] TAKE ONE TABLET ONCE A DAY Apr [...] Apr 10, sodium, serum SODIUM 139 mmol/L [phone] Apr 10, potassium, serum POTASSIUM 4.2 mmol/L [...] Apr 10, cholesterol, serum CHOLESTEROL 135 mg/dl [phone] Apr 10, triglyceride, TRIGLYCERIDE 115 mg/dl 0-149 [...]
--- OUTSIDE RECORDS SUMMARY | 2019-03-24 09:53 | XMS REPORT | Continuity of Care Document ---
:1935 Author Organization [facility] Care Team Providers Name Role Phone MD Arie, Lázaro Unavailable Unavailable Insurance Providers Payer name Policy type / Policy ID Covered alliance party ID Policy [place]unez [place] type [place] [employer] [place]) [place] (MED[place]OV[employer] [place] [employer] [place] [employer] Encounters Encounter Performer Location Date Office Visit Lázaro Sargent MD [facility] Nov 22, 2014 Cardiology Problems Problem Effective [...] Date Status DILTIAZEM HCL CR 240 MG [id number] TAKE ONE TABLET ONCE A DAY Apr [...] Apr 10, sodium, serum SODIUM 139 mmol/L [phone] Apr 10, potassium, serum POTASSIUM 4.2 mmol/L [...] Apr 10, cholesterol, serum CHOLESTEROL 135 mg/dl [phone] Apr 10, triglyceride, TRIGLYCERIDE 115 mg/dl 0-149 [...]
[2019-03-24] MEDS ORDERED: HEPARIN 500 UNIT/5 ML SYR IV ONE (10:08)
== END 2019-03-24 10:30 | disposition home or self-care (01) ==
LOC: DS 09:45
PROVIDERS: ATTEND Internal Medicine
DX: Z45.2 Encounter for adjustment and management of vascular access device (principal); C50.919 Malignant neoplasm of unspecified site of unspecified female breast
CPT/HCPCS: 96523; J1642

== ENCOUNTER 2019-06-28 08:49 | Day surgery (SDC) | payer OTHER ==
--- OUTSIDE RECORDS SUMMARY | 2019-06-28 08:51 | XMS REPORT ---
[...] Status Dosage System Date Date Anastrozole [facility] [id number] 1 MG Oral Active TAKE 1 TABLET BY MOUTH EVERY DAY Tramadol HCl [facility] [id number] 50 MG Oral Active (Schedule IV Drug) TAKE 1 TABLET (50 MG) BY MOUTH EVERY 8 HOURS NEEDED Loratadine [facility] [id number] 10 MG Oral Active TAKE 1 TABLET BY MOUTH EVERY DAY Metformin HCl [facility] [id number] 500 MG Oral Active TAKE 1 TABLET (500 MG) BY MOUTH 2 TIMES PER DAY WITH MEALS Simvastatin [facility] [id number] 40 MG Oral Active TAKE 1 TABLET BY MOUTH AT BEDTIME Lisinopril-Hydr [facility] [id number] 20-25 MG Oral Active TAKE 1 ochlorothiazide TABLET BY MOUTH TWICE A DAY Gabapentin [facility] [id number] 300 MG Oral Active TAKE 1 CAPSULE BY MOUTH AT BEDTIME. Diltiazem HCl [facility] [id number] 240 MG Oral Active TAKE ONE ER Beads CAPSULE BY MOUTH EVERY DAY Results No Known Results Summary Purpose eClinicalWorks Submission
--- OUTSIDE RECORDS SUMMARY | 2019-06-28 08:51 | XMS REPORT ---
:1935 Author Organization [facility] Address [address] [place] [address] Care Team Providers Name Role Phone Unavailable Unavailable Unavailable Problems This patient has no known problems. Allergies, Adverse Reactions, Alerts This patient has no known allergies or adverse reactions. Medications This patient has no known medications. Encounters Start End Encounter Admission Attending Care Care Encounter Date/Time Date/Time Type Type Clinicians Facility Department ID 2019-06-14 Outpatient [facility] [id number] 08:22:36 2019-05-17 Inpatient [facility] [id number] 06:43:00 2019-05-13 Outpatient [facility] [id number] 12:47:12 2019-04-26 2019-04-26 Outpatient [facility] [id number] 06:54:00 06:54:00 2019-04-04 2019-04-04 Outpatient [facility] [id number] 11:24:00 11:24:00
--- OUTSIDE RECORDS SUMMARY | 2019-06-28 08:52 | XMS REPORT ---
[...] End Status Dosage System Date Date Anastrozole [facility] 71398121869 1 MG Oral Active TAKE 1 TABLET BY MOUTH EVERY DAY Metformin HCl [facility] [id number] 500 MG Oral Active TAKE 1 TABLET (500 MG) BY MOUTH 2 TIMES PER DAY WITH MEALS Tramadol HCl [facility] [id number] 50 MG Oral Active (Schedule IV Drug) TAKE 1 TABLET (50 MG) BY MOUTH EVERY 8 HOURS NEEDED Loratadine [facility] 87996383473 10 MG Oral Active TAKE 1 TABLET BY MOUTH EVERY DAY Simvastatin [facility] 42780578516 40 MG Oral Active TAKE 1 TABLET BY MOUTH AT BEDTIME Lisinopril-Hydr [facility] 67396421453 20-25 MG Oral Active TAKE 1 ochlorothiazide TABLET BY MOUTH TWICE A DAY Gabapentin [facility] [id number] 300 MG Oral Active TAKE 1 CAPSULE BY MOUTH AT BEDTIME. Diltiazem HCl [facility] [id number] 240 MG Oral Active TAKE ONE ER Beads CAPSULE BY MOUTH EVERY DAY Results No Known Results Summary Purpose eClinicalWorks Submission
[2019-06-28] MEDS ORDERED: LIDOCAINE 4% TOP SOLUTION ONE (09:12)
[2019-06-28] MEDS ORDERED: HEPARIN 500 UNIT/5 ML SYR IV ONE (09:35)
[2019-06-28 09:42] VITALS: BP 163/73; TEMP 98.5; O2SAT 95; BMI 24.6
== END 2019-06-28 10:35 | disposition home or self-care (01) ==
LOC: DS 08:49
PROVIDERS: ATTEND Internal Medicine
DX: Z45.2 Encounter for adjustment and management of vascular access device (principal); C50.919 Malignant neoplasm of unspecified site of unspecified female breast
CPT/HCPCS: 96523; J1642

== ENCOUNTER 2019-09-16 08:54 | Day surgery (SDC) | payer OTHER ==
--- OUTSIDE RECORDS SUMMARY | 2019-09-16 08:57 | XMS REPORT ---
:1935 [facility] Address [address] [place] [address] Care Team Providers Name Role Phone Unavailable Unavailable Unavailable Problems This patient has no known problems. Allergies, Adverse Reactions, Alerts This patient has no known allergies or adverse reactions. Medications This patient has no known medications. Encounters Start End Encounter Admission Attending Care Care Encounter Date/Time Date/Time Type Type Clinicians Facility Department ID 2019-06-14 Outpatient [facility] CAR [id number] 08:22:36 2019-05-17 Inpatient [facility] CAR 7540 06:43:00 2019-05-13 Outpatient [facility] CAR [id number] 12:47:12 2019-06-29 2019-06-29 Outpatient [facility] CAR [id number] 10:11:00 10:11:00 2019-04-26 2019-04-26 Outpatient [facility] CAR [id number] 06:54:00 06:54:00 2019-04-04 2019-04-04 Outpatient [facility] CAR [id number] 11:24:00 11:24:00
--- OUTSIDE RECORDS SUMMARY | 2019-09-16 08:57 | XMS REPORT ---
[...] End Status Dosage System Date Date Anastrozole [facility] 00798750632 1 MG Oral Active TAKE 1 TABLET BY MOUTH EVERY DAY Metformin HCl [facility] 84483836442 500 MG Oral Active TAKE 1 TABLET (500 MG) BY MOUTH 2 TIMES PER DAY WITH MEALS Tramadol HCl [facility] 75156201862 50 MG Oral Active (Schedule IV Drug) TAKE 1 TABLET (50 MG) BY MOUTH EVERY 8 HOURS NEEDED Loratadine [facility] 39724646266 10 MG Oral Active TAKE 1 TABLET BY MOUTH EVERY DAY Simvastatin [facility] 10200761095 40 MG Oral Active TAKE 1 TABLET BY MOUTH AT BEDTIME Lisinopril-Hydr [facility] 00386179341 20-25 MG Oral Active TAKE 1 ochlorothiazide TABLET BY MOUTH TWICE A DAY Gabapentin [facility] 44333516206 300 MG Oral Active TAKE 1 CAPSULE BY MOUTH AT BEDTIME. Diltiazem HCl [facility] 69661497216 240 MG Oral Active TAKE ONE ER Beads CAPSULE BY MOUTH EVERY DAY Results No Known Results Summary Purpose eClinicalWorks Submission
--- OUTSIDE RECORDS SUMMARY | 2019-09-16 08:57 | XMS REPORT ---
[...] End Status Dosage System Date Date Anastrozole [facility] 60465905382 1 MG Oral Active TAKE 1 TABLET BY MOUTH EVERY DAY Tramadol HCl [facility] 12825872363 50 MG Oral Active (Schedule IV Drug) TAKE 1 TABLET (50 MG) BY MOUTH EVERY 8 HOURS NEEDED Loratadine [facility] 95772268818 10 MG Oral Active TAKE 1 TABLET BY MOUTH EVERY DAY Metformin HCl [facility] 92845103422 500 MG Oral Active TAKE 1 TABLET (500 MG) BY MOUTH 2 TIMES PER DAY WITH MEALS Simvastatin [facility] 47860454031 40 MG Oral Active TAKE 1 TABLET BY MOUTH AT BEDTIME Lisinopril-Hydr [facility] 01514288160 20-25 MG Oral Active TAKE 1 ochlorothiazide TABLET BY MOUTH TWICE A DAY Gabapentin [facility] 97841514252 300 MG Oral Active TAKE 1 CAPSULE BY MOUTH AT BEDTIME. Diltiazem HCl [facility] 04190819984 240 MG Oral Active TAKE ONE ER Beads CAPSULE BY MOUTH EVERY DAY Results No Known Results Summary Purpose eClinicalWorks Submission
[2019-09-16] MEDS ORDERED: HEPARIN 500 UNIT/5 ML SYR IV ONE (09:48)
[2019-09-16 10:57] VITALS: BP 185/71; BMI 24.7
[2019-09-16 13:24] VITALS: TEMP 97.9; O2SAT 97
== END 2019-09-16 10:00 | disposition home or self-care (01) ==
LOC: DS 08:54
PROVIDERS: ATTEND Internal Medicine
DX: Z45.2 Encounter for adjustment and management of vascular access device (principal); C50.919 Malignant neoplasm of unspecified site of unspecified female breast
CPT/HCPCS: 96523; J1642

== ENCOUNTER 2019-10-28 07:47 | Day surgery (SDC) | payer OTHER ==
--- OUTSIDE RECORDS SUMMARY | 2019-10-28 07:51 | XMS REPORT ---
:1935 [facility] Address [address] [place] [address] Care Team Providers Name Role Phone Unavailable Unavailable Unavailable Problems This patient has no known problems. Allergies, Adverse Reactions, Alerts This patient has no known allergies or adverse reactions. Medications This patient has no known medications. Encounters Start End Encounter Admission Attending Care Care Encounter Date/Time Date/Time Type Type Clinicians Facility Department ID 2019-06-14 Outpatient [facility] CAR [id number] 08:22:36 2019-05-17 Inpatient [facility] CAR [id number] 06:43:00 2019-05-13 Outpatient [facility] CAR [id number] 12:47:12 2019-06-29 2019-06-29 Outpatient [facility] CAR [id number] 10:11:00 10:11:00 2019-04-26 2019-04-26 Outpatient [facility] CAR [id number] 06:54:00 06:54:00 2019-04-04 2019-04-04 Outpatient [facility] CAR [id number] 11:24:00 11:24:00
--- OUTSIDE RECORDS SUMMARY | 2019-10-28 07:51 | XMS REPORT ---
:1935 Author Organization e[employer] Care Team Providers Name Role Phone JoyaMike Provider Role Unavailable Allergies, Adverse Reactions, Alerts Substance Reaction Event Type N.K.D.A. 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 Assessment 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), bioprosthetic Problem 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), bioprosthetic Assessment 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 Problem 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 Assessment Age-related osteoporosis without M81.0 Active current pathological fracture Problem Type 2 diabetes mellitus with E11.65 Active hyperglycemia, without long-term current use of insulin Problem 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 Problem History of bladder cancer Z85.51 Active Problem Generalized anxiety disorder F41.1 Active Problem Gastro-esophageal reflux disease K21.9 Active without esophagitis Assessment Type 2 diabetes mellitus with E11.65 Active hyperglycemia, without long-term current use of insulin Assessment History of vertebral fracture Z87.81 Active Problem Essential hypertension I10 Active Assessment Essential hypertension I10 Active Assessment Primary osteoarthritis of left knee M17.12 Active Problem Chronic obstructive pulmonary J44.9 Active disease, unspecified COPD type Assessment History of fall Z91.81 Active Problem Diverticulosis large intestine w/o K57.30 Active perforation or abscess w/o bleeding Problem Mixed hyperlipidemia E78.2 Active Problem Age-related osteoporosis without M81.0 Active current pathological fracture Assessment Allergic rhinitis, unspecified J30.9 Active seasonality, unspecified trigger Problem Acute pain of left knee M25.562 Active Assessment Diaphragmatic hernia without K44.9 Active obstruction or gangrene Problem Lymphedema of upper extremity I89.0 Active Assessment History of bilateral mastectomy Z90.13 Active Problem Sciatica of left side M54.32 Active Assessment Gastro-esophageal reflux disease K21.9 Active without esophagitis Problem Primary osteoarthritis of left knee M17.12 Active Assessment History of bladder cancer Z85.51 Active Problem Allergic rhinitis, unspecified J30.9 Active seasonality, unspecified trigger Assessment 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 Problem Peripheral polyneuropathy G62.9 Active Problem 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 Problem History of bilateral mastectomy Z90.13 Active Medications Medication Code Code Instructions Start End Status Dosage System Date Date Anastrozole [facility] 07802714711 1 MG Oral Active TAKE 1 TABLET BY MOUTH EVERY DAY Simvastatin [facility] 16077179785 40 MG Oral Active TAKE 1 TABLET BY MOUTH AT BEDTIME Calcium 1200 [facility] 28737053632 2260-1982 Active 1 tablet MG-UNIT Orally with a meal Once a day 6 days a week Prolia [facility] 47805209987 60 MG/ML Active as directed Subcutaneous Tramadol HCl [facility] 60055886148 50 MG Oral Active (Schedule IV Drug) TAKE 1 TABLET (50 MG) BY MOUTH EVERY 8 HOURS NEEDED Diazepam [facility] 30166482946 5 MG Orally Active 1 tablet as Once a day needed for anxiety Loratadine [facility] 50732452697 10 MG Oral Active TAKE 1 TABLET BY MOUTH EVERY DAY Aspirin 81 [facility] 52289841676 81 MG Orally Active 1 tablet Once a day Eliquis [facility] 57869783537 5 MG Oral Active TAKE 1 TABLET BY MOUTH TWICE A DAY FOR 90 DAYS 50+ [employer] Wet [employer] [place] 0 Active not defined Womens Olmesartan [facility] 14774601835 40 MG Oral Active TAKE 1 Medoxomil TABLET BY MOUTH EVERY DAY Metformin HCl [facility] 88253351580 500 MG Oral Active TAKE 1 TABLET (500 MG) BY MOUTH 2 TIMES PER DAY WITH MEALS Diltiazem HCl ER [facility] 06366216516 240 MG Oral Active TAKE ONE Beads CAPSULE BY MOUTH EVERY DAY Nitroglycerin [facility] 93960783630 0.4 MG Active as directed Sublingual Gabapentin [facility] 45323188127 300 MG Oral Active TAKE 1 CAPSULE BY MOUTH AT BEDTIME. Results No Known Results Summary Purpose eClinicalWorks Submission
--- OUTSIDE RECORDS SUMMARY | 2019-10-28 07:51 | XMS REPORT ---
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 Problem History of bladder cancer Z85.51 Active Problem Generalized anxiety disorder F41.1 Active Problem Gastro-esophageal reflux disease K21.9 Active without esophagitis Problem Essential hypertension I10 Active Problem Chronic obstructive pulmonary J44.9 Active disease, unspecified COPD type Problem Diverticulosis large intestine w/o K57.30 Active perforation or abscess w/o bleeding Problem Mixed hyperlipidemia E78.2 Active Problem Age-related osteoporosis without M81.0 Active current pathological fracture Problem Acute pain of left knee M25.562 Active Problem Lymphedema of upper extremity I89.0 Active Problem Sciatica of left side M54.32 Active Problem Primary osteoarthritis of left knee M17.12 Active Problem Allergic rhinitis, unspecified J30.9 Active seasonality, unspecified trigger Problem Peripheral polyneuropathy G62.9 Active Problem 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
[2019-10-28] MEDS ORDERED: HEPARIN 500 UNIT/5 ML SYR IV ONE (08:53)
[2019-10-28 08:59] LABS: Absolute Lymphocytes (CBC) 1.4 K/uL (0.7-4.9); Basophils % 0.9 % (0-1.3); Hematocrit 38.1 % (36.0-45.0); Lymphocytes % 14.8 % (15.3-44.8); MPV 10.4 fL (7.6-11.3); RBC Red Blood Cell Count 4.83 M/uL (3.86-4.86)
[2019-10-28 09:11] VITALS: BP 193/75; TEMP 97.3; O2SAT 97
[2019-10-28 09:12] VITALS: BMI 24.6
[2019-10-28 09:21] LABS: UR MICROALBUMIN 17.1 mg/dL (< 1.9)
[2019-10-28 09:25] LABS: Albumin 3.3 g/dL (3.4-5.0); Bilirubin Total 0.3 mg/dL (0.2-1.0); Potassium 4.2 mmol/L (3.5-5.1); Protein, Total 6.6 g/dL (6.4-8.2); Thyroid Stimulating Hormone 1.43 uIU/mL (0.360-3.740)
== END 2019-10-28 08:55 | disposition home or self-care (01) ==
LOC: DS 07:47
PROVIDERS: ATTEND Family Medicine
DX: C50.919 Malignant neoplasm of unspecified site of unspecified female breast (principal); E11.65 Type 2 diabetes mellitus with hyperglycemia; E78.2 Mixed hyperlipidemia; I10 Essential (primary) hypertension
CPT/HCPCS: 85025; 36415; 80061; 84443; 83036; 82570; 80053; 82043; 96523; J1642

== ENCOUNTER 2019-12-19 08:25 | Day surgery (SDC) | payer OTHER ==
[2019-12-19] MEDS ORDERED: HEPARIN 500 UNIT/5 ML SYR IV ONE (09:19)
--- OUTSIDE RECORDS SUMMARY | 2019-12-19 09:51 | XMS REPORT ---
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 Problem History of bladder cancer Z85.51 Ac tive Problem Generalized anxiety disorder F41.1 Active Problem Gastro-esophageal reflux disease K21.9 Active without esophagitis Problem Essential hypertension I10 Activ e Problem Chronic obstructive pulmonary J44.9 Active disease, unspecified COPD type Problem Diverticulosis large intestine w/o K57.30 Active perforation or abscess w/o bleeding Problem Mixed hyperlipidemia E78.2 Active Problem Age-related osteoporosis without M81.0 Active current pathological fracture Problem Acute pain of left knee M25.562 Acti ve Problem Lymphedema of upper extremity I89.0 Active Problem Sciatica of left side M54.32 Active Problem Primary osteoarthritis of left knee M17.12 Active Problem Allergic rhinitis, unspecified J30.9 Active seasonality, unspecified trigger Problem Peripheral polyneuropathy G62.9 Ac tive Problem 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
--- OUTSIDE RECORDS SUMMARY | 2019-12-19 09:51 | XMS REPORT ---
:1935 Author Organization [employer] Care Team Providers Name Role Phone JoyaMike Provider Role Unavailable Allergies, Adverse Reactions, Alerts Substance Reaction Event Type N.K.D.A. 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 Assessment 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), bioprosthetic Problem 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), bioprosthetic Assessment 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 Problem 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 Assessment Age-related [...] fracture Z87.81 Active Problem Essential hypertension I10 Activ e Assessment Essential hypertension I10 Activ e Assessment Primary osteoarthritis of left knee M17.12 [...] pain of left knee M25.562 Acti ve Assessment Diaphragmatic hernia without K44.9 Active obstruction or gangrene Problem Lymphedema of upper extremity I89.0 Active Assessment History of bilateral mastectomy Z90.13 Active Problem Sciatica of left side M54.32 Active Assessment Gastro-esophageal reflux disease K21.9 Active without esophagitis Problem Primary osteoarthritis of left knee M17.12 Active Assessment History of bladder cancer Z85.51 Ac tive Problem Allergic rhinitis, unspecified J30.9 Active seasonality, unspecified trigger Assessment 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 Problem Peripheral polyneuropathy G62.9 Ac tive Problem 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 Problem History of bilateral mastectomy Z90.13 Active Medications Medication Code Code Instructions Start End Status Dosage System Date Date Anastrozole [facility] 18801781825 1 MG Oral Active TAKE 1 TABLET BY MOUTH EVERY DAY Simvastatin [facility] 77193045550 40 MG Oral Active TAKE 1 TABLET BY MOUTH AT BEDTIME Calcium 1200 [facility] 79201871089 3332-2808 Active 1 tab let MG-UNIT Orally with a me al Once a day 6 days a week Prolia [facility] 69458286106 60 MG/ML Active as directed Subcutaneous Tramadol HCl [facility] 63920256559 50 MG Oral Active (Daphnie edule IV Drug) TAKE 1 TABLET (50 MG) BY MOUTH EVERY 8 HOURS NEEDED Diazepam [facility] 80210045694 5 MG Orally Active 1 table t as Once a day needed for anxiety Loratadine [facility] 00305348657 10 MG Oral Active TAKE 1 TABLET BY MOUTH EVERY DAY Aspirin 81 [facility] 74470719533 81 MG Orally Active 1 ta blet Once a day Eliquis [facility] 75896731191 5 MG Oral Active TAKE 1 TABLET BY MOUTH TWICE A DAY FOR 90 DAYS 50+ Hearing Aid Technician [place] 0 Active not define d Womens Olmesartan [facility] 24941857097 40 MG Oral Active TAKE 1 Medoxomil TABLET BY MOUTH EVERY DAY Metformin HCl [facility] 90115247719 500 MG Oral Active TA KE 1 TABLET (500 MG) BY MOUTH 2 TIMES PER DAY WITH MEALS Diltiazem HCl ER [facility] 50040597600 240 MG Oral Active TAKE ONE Beads CAPSULE BY MOUTH EVERY DAY Nitroglycerin [facility] 65303409257 0.4 MG Active as dir ected Sublingual Gabapentin [facility] 11698785510 300 MG Oral Active TAKE 1 CAPSULE BY MOUTH AT BEDTIME. Results No Known Results Summary Purpose eClinicalWorks Submission
--- OUTSIDE RECORDS SUMMARY | 2019-12-19 09:51 | XMS REPORT ---
:1935 Author Organization [employer]ClinicalWorks Care Team Providers Name Role Phone Toan Mike Provider Role Unavailable Allergies, Adverse Reactions, Alerts Substance Reaction Event Type N.K.D.A. Info Not Available Non Drug Allergy Problems Problem Type Condition Code Onset Dates Condition Statu s Problem Type 2 diabetes mellitus with E11.65 Active hyperglycemia, without long-term current use of insulin Problem Mixed hyperlipidemia E78.2 Active Problem History of bladder cancer Z85.51 Ac tive Problem Chronic kidney disease, stage 3 N18.3 Active (moderate) Problem Sciatica of left side M54.32 Active Problem Chronic obstructive pulmonary J44.9 Active disease, unspecified COPD type Problem Primary osteoarthritis of left knee M17.12 Active Problem Type 2 diabetes mellitus with E11.22 Active diabetic chronic kidney disease Problem Generalized anxiety disorder F41.1 Active Problem Gastro-esophageal reflux disease K21.9 Active without esophagitis Problem Age-related osteoporosis without M81.0 Active current pathological fracture Problem Essential hypertension I10 Activ e Problem Diverticulosis large intestine w/o K57.30 Active perforation or abscess w/o bleeding Problem Lymphedema of upper extremity I89.0 Active Problem Acute pain of left knee M25.562 Acti ve Problem 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 Problem Allergic rhinitis, unspecified J30.9 Active seasonality, unspecified trigger Problem Peripheral polyneuropathy G62.9 Ac tive Problem 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 Problem 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), bioprosthetic Assessment Medicare annual wellness visit, Z00.00 Active subsequent Problem History of bilateral mastectomy Z90.13 Active Problem 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 Medications Medication Code Code Instructions Start End Status Dosage System Date Date Loratadine [facility] 31308803195 10 MG Oral Active TAKE 1 TABLET BY MOUTH EVERY DAY Eliquis [facility] 07150287505 5 MG Oral Active TAKE 1 TABLET BY MOUTH TWICE A DAY FOR 90 DAYS Nitroglycerin [facility] 28037208236 0.4 MG Active as dir ected Sublingual Diazepam [facility] 89258013976 5 MG Orally Active 1 table t as Once a day needed for anxiety Anastrozole [facility] 71774262566 1 MG Oral Active TAKE 1 TABLET BY MOUTH EVERY DAY Diltiazem HCl ER [facility] 72055692773 240 MG Oral Active TAKE ONE Beads CAPSULE BY MOUTH EVERY DAY Calcium 1200 [facility] 26208852259 9290-9167 Active 1 tab let MG-UNIT Orally with a me al Once a day 6 days a week 50+ Director Inbound Sales [facility] 0 Active not define d Womens Olmesartan [facility] 83383752673 40 MG Oral Active TAKE 1 Medoxomil TABLET BY MOUTH EVERY DAY Prolia [facility] 76504379511 60 MG/ML Active as directed Subcutaneous Tramadol HCl [facility] 77824615790 50 MG Oral Active (Daphnie edule IV Drug) TAKE 1 TABLET (50 MG) BY MOUTH EVERY 8 HOURS NEEDED Simvastatin [facility] 61108002893 40 MG Oral Active TAKE 1 TABLET BY MOUTH AT BEDTIME Gabapentin [facility] 93295832944 300 MG Oral Active TAKE 1 CAPSULE BY MOUTH AT BEDTIME. Metformin HCl [facility] 80013818100 500 MG Oral Active TA KE 1 TABLET (500 MG) BY MOUTH 2 TIMES PER DAY WITH MEALS Aspirin 81 [facility] 45788566703 81 MG Orally Active 1 ta blet Once a day Results No Known Results Summary Purpose eClinicalWorks Submission
--- OUTSIDE RECORDS SUMMARY | 2019-12-19 09:51 | XMS REPORT ---
:1935 Author Organization eClinicalWorks Care Team Providers Name Role Phone Mike Joya Provider Role Unavailable Allergies, Adverse Reactions, Alerts Substance Reaction Event Type N.K.D.A. 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 Assessment Primary osteoarthritis of left knee M17.12 Active Assessment 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), bioprosthetic Assessment 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 Assessment Age-related osteoporosis without M81.0 Active current pathological fracture Problem 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), bioprosthetic Assessment Essential hypertension I10 Activ e Problem 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 Assessment Type 2 diabetes mellitus with E11.65 Active hyperglycemia, without long-term current use of insulin Problem Type 2 diabetes mellitus with E11.65 Active hyperglycemia, without long-term current use of insulin Problem Mixed hyperlipidemia E78.2 Active Problem History of bladder cancer Z85.51 Ac tive Problem Chronic kidney disease, stage 3 N18.3 Active (moderate) Problem Chronic obstructive pulmonary J44.9 Active disease, unspecified COPD type Problem Sciatica of left side M54.32 Active Problem Primary osteoarthritis of left knee M17.12 Active Assessment Gastro-esophageal reflux disease K21.9 Active without esophagitis Problem Type 2 diabetes mellitus with E11.22 Active diabetic chronic kidney disease Assessment History of bilateral mastectomy Z90.13 Active Problem Generalized anxiety disorder F41.1 Active Assessment 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 Problem Gastro-esophageal reflux disease K21.9 Active without esophagitis Assessment History of bladder cancer Z85.51 Ac tive Problem Age-related osteoporosis without M81.0 Active current pathological fracture Assessment History of vertebral fracture Z87.81 Active Problem Essential hypertension I10 Activ e Assessment Proteinuria, unspecified type R80.9 Active Problem Diverticulosis large intestine w/o K57.30 Active perforation or abscess w/o bleeding Assessment Generalized anxiety disorder F41.1 Active Problem Lymphedema of upper extremity I89.0 Active Assessment Internal hemorrhoid K64.8 Active Problem Acute pain of left knee M25.562 Acti ve Assessment Diverticulosis large intestine w/o K57.30 Active perforation or abscess w/o bleeding Problem 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 Assessment Allergic rhinitis, unspecified J30.9 Active seasonality, unspecified trigger Problem Allergic rhinitis, unspecified J30.9 Active seasonality, unspecified trigger Assessment Diaphragmatic hernia without K44.9 Active obstruction or gangrene Problem Peripheral polyneuropathy G62.9 Ac tive Problem 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 Problem History of bilateral mastectomy Z90.13 Active Medications Medication Code Code Instructions Start End Status Dosage System Date Date Nitroglycerin [facility] 62020601233 0.4 MG Active as dir ected Sublingual Prolia [facility] 78310569163 60 MG/ML Active as directed Subcutaneous Metformin HCl [facility] 72099032698 500 MG Oral Active TA KE 1 TABLET (500 MG) BY MOUTH 2 TIMES PER DAY WITH MEALS Simvastatin [facility] 69391557766 40 MG Oral Active TAKE 1 TABLET BY MOUTH AT BEDTIME Calcium 1200 [facility] 60648206915 9455-3347 Active 1 tab let MG-UNIT Orally with a me al Once a day 6 days a week Loratadine [facility] 29092651464 10 MG Oral Active TAKE 1 TABLET BY MOUTH EVERY DAY Olmesartan [facility] 62910834625 40 MG Oral Active TAKE 1 Medoxomil TABLET BY MOUTH EVERY DAY Eliquis [facility] 32468534972 5 MG Oral Active TAKE 1 TABLET BY MOUTH TWICE A DAY FOR 90 DAYS Diltiazem HCl ER [facility] 30332185678 240 MG Oral Active TAKE ONE Beads CAPSULE BY MOUTH EVERY DAY Tramadol HCl [facility] 06698505671 50 MG Oral Active (Daphnie edule IV Drug) TAKE 1 TABLET (50 MG) BY MOUTH EVERY 8 HOURS NEEDED Gabapentin [facility] 68170809964 300 MG Oral Active TAKE 1 CAPSULE BY MOUTH AT BEDTIME. 50+ Risk Lead ND 0 Active not define d Womens Aspirin 81 [facility] 83738353473 81 MG Orally Active 1 ta blet Once a day Anastrozole [facility] 97603664626 1 MG Oral Active TAKE 1 TABLET BY MOUTH EVERY DAY Diazepam [facility] 68219695081 5 MG Orally Active 1 table t as Once a day needed for anxiety Results No Known Results Summary Purpose eClinicalWorks Submission
--- OUTSIDE RECORDS SUMMARY | 2019-12-19 09:51 | XMS REPORT ---
:1935 Author Organization [facility] t Address [address] [place] [address] Care Team Providers Name Role Phone Unavailable Unavailable Unavailable Problems Condition Condition Condition Status Onset Resolution Last Treatin g Comments Name Details Category Date Date Treatment Clinician Date Primary Primary Problem Active osteoarthri osteoarthri tis of left tis of left knee knee Acute pain Acute pain Problem Active of left of left knee knee Sciatica of Sciatica of Problem Active left side left side Generalized Generalized Problem Active anxiety anxiety disorder disorder Lymphedema Lymphedema Problem Active of upper of upper extremity extremity Diverticulo Diverticulo Problem Active sis large sis large intestine intestine w/o w/o perforation perforation or abscess or abscess w/o w/o bleeding bleeding Chronic Chronic Problem Active obstructive obstructive pulmonary pulmonary disease, disease, unspecified unspecified COPD type COPD type Mixed Mixed Problem Active hyperlipide hyperlipide usman usman Coronary Coronary Problem Active artery artery disease of disease of [place] artery of artery of [place] heart with heart with stable stable 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 (transcathe (transcathe ter aortic ter aortic valve valve replacement replacement ), ), bioprosthet bioprosthet ic ic Diabetic Diabetic Problem Active polyneuropa polyneuropa thy thy associated associated with type 2 with type 2 diabetes diabetes mellitus mellitus Age-related Age-related Problem Active osteoporosi osteoporosi s without s without current current pathologica pathologica l fracture l fracture Type 2 Type 2 Problem Active diabetes diabetes mellitus mellitus with with hyperglycem hyperglycem ia, without ia, without long-term long-term current use current use of insulin of insulin History of History of Problem Active bladder bladder cancer cancer Gastro-esop Gastro-esop Problem Active hageal hageal reflux reflux disease disease without without esophagitis esophagitis Essential Essential Problem Active hypertensio hypertensio n n Allergic Allergic Problem Active rhinitis, rhinitis, unspecified unspecified seasonality seasonality , , unspecified unspecified trigger trigger History of History of Problem Active bilateral bilateral mastectomy mastectomy History of History of Problem Active malignant malignant neoplasm of neoplasm of both both breasts breasts Peripheral Peripheral Problem Active polyneuropa polyneuropa thy thy Chronic Chronic Problem Active kidney kidney disease, disease, stage 3 stage 3 (moderate) (moderate) Type 2 Type 2 Problem Active diabetes diabetes mellitus mellitus with with diabetic diabetic chronic chronic kidney kidney disease disease Medicare Medicare Diagnosis Active annual annual wellness wellness visit, visit, subsequent subsequent Allergies, Adverse Reactions, Alerts This patient has no known allergies or adverse reactions. Medications Ordered Filled Start Stop Current Ordering Indication Dosage Frequency Signature Comments Components Medication Medication Date Date Medication? Clinician (SIG) Name Name Anastrozole Anastrozole Yes Mike TAKE 1 Joya TABLET BY MOUTH EVERY DAY Tramadol Tramadol Yes Mike (Schedule HCl HCl Joya IV Drug) TAKE 1 TABLET (50 MG) BY MOUTH EVERY 8 HOURS NEEDED Loratadine Loratadine Yes Mike TAKE 1 Joya TABLET BY MOUTH EVERY DAY Metformin Metformin Yes Mike TAKE 1 HCl HCl Joya TABLET (500 MG) BY MOUTH 2 TIMES PER DAY WITH MEALS Simvastatin Simvastatin Yes Mike TAKE 1 Joya TABLET BY MOUTH AT BEDTIME Gabapentin Gabapentin Yes Mike TAKE 1 Joya CAPSULE BY MOUTH AT BEDTIME. Diltiazem Diltiazem Yes Mike TAKE ONE HCl ER HCl ER Joya CAPSULE BY Beads Beads MOUTH EVERY DAY Calcium Calcium Yes Mike 1 tablet 1200 1200 Joya with a meal 6 days a week Prolia Prolia Yes Mike as Joya directed Diazepam Diazepam Yes Mike 1 tablet Joya as needed for anxiety Aspirin 81 Aspirin 81 Yes Mike 1 tablet Joya Eliquis Eliquis Yes Mike TAKE 1 Joya TABLET BY MOUTH TWICE A DAY FOR 90 DAYS 50+ 50+ Yes Mike not Estimator Printing Plate Making Estimator Printing Plate Making Joya defined Womens Womens Olmesartan Olmesartan Yes Mike TAKE 1 Medoxomil Medoxomil Joya TABLET BY MOUTH EVERY DAY Nitroglycer Nitroglycer Yes Mike as in in Joya directed Encounters Start End Encounter Admission Attending Care Care Encounter Date/Time Date/Time Type Type Clinicians Facility Department ID 2019-06-14 Outpatient [facility] [id number] 08:22:36 2019-05-17 Inpatient [facility] [id number] 06:43:00 2019-05-13 Outpatient [facility] [id number] 12:47:12 2019-12-09 2019-12-09 [id number] 10:00:00 10:00:00 [facility] 2019-12-09 2019-12-09 [id number] 09:45:00 09:45:00 [facility] 2019-12-06 2019-12-06 [id number] 14:22:00 14:22:00 [facility] 2019-10-12 2019-10-12 [id number] 14:30:00 14:30:00 [facility] 2019-10-12 2019-10-12 [facility] [id number] 10:00:00 10:00:00 [employer] 2019-06-29 2019-06-29 Outpatient [facility] [id number] 10:11:00 10:11:00 2019-04-26 2019-04-26 Outpatient [facility] [id number] 06:54:00 06:54:00 2019-04-04 2019-04-04 Outpatient [facility] [id number] 11:24:00 11:24:00 2018-04-06 2018-04-06 [facility] [id number] 08:00:00 08:00:00 [facility] 2018-03-15 2018-03-15 [facility] [id number] 08:30:00 08:30:00 [facility]
--- OUTSIDE RECORDS SUMMARY | 2019-12-19 09:51 | XMS REPORT ---
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
[2019-12-19 10:19] VITALS: BP 169/70; TEMP 97.5; O2SAT 97
[2019-12-19 10:20] VITALS: BMI 24.6
== END 2019-12-19 09:30 | disposition home or self-care (01) ==
LOC: DS 08:25
PROVIDERS: ATTEND Family Medicine
DX: Z45.2 Encounter for adjustment and management of vascular access device (principal); C50.919 Malignant neoplasm of unspecified site of unspecified female breast
CPT/HCPCS: 96523; J1642

== ENCOUNTER 2020-02-10 08:52 | Day surgery (SDC) | payer OTHER ==
[2020-02-10] MEDS ORDERED: HEPARIN 500 UNIT/5 ML SYR IV ONE (09:11)
--- OUTSIDE RECORDS SUMMARY | 2020-02-10 10:02 | XMS REPORT | Clinical Summary ---
:1935 Author Organization [facility] Address [address] [place] [address] Care Team Providers Name Role Phone Asked, Pcp Primary Care Provider Unavailable Allergies No Known Allergies Medications Medication Sig Dispensed Refills Start Date End Date Status ANASTROZOLE ORAL Take by mouth. 0 Active diazepam (VALIUM) 5 MG Take 5 mg by mouth 0 Active tablet every 6 (six) hours as needed for anxiety. lisinopril Take 20 mg by 0 Activ e (PRINIVIL,ZESTRIL) 20 mouth daily. MG tablet metFORMIN XR Take 500 mg by 0 Ac tive (GLUCOPHATE-XR) 500 MG mouth daily with 24 [...] (ARIMIDEX) Take 1 mg by mouth 3 03/17/20 16 Active 1 mg chemo tablet once daily. 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
--- OUTSIDE RECORDS SUMMARY | 2020-02-10 10:04 | XMS REPORT | Continuity of Care Document ---
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 Condition 11/22/2014 [facility] edical 14 Group HEMATURIA, HX OF Active 05/11/20 Condition 11/22/2014 [facility] 13 Group RENAL Active 05/11/20 Condition 11/22/2014 Med[facility] l INSUFFICIENCY 13 Group CAD Active 05/11/20 Condition 11/22/2014 Medica l 13 Group BREAST CANCER Active 11/10/19 Condition 11/22/2014 [facility] dical 13 Group HYPERTENSION Active Condition 11/22/2014 Med ical Group HYPERLIPIDEMIA Active Condition 11/22/2014 [facility] edical Group C O P D Active Condition 11/22/2014 Medica l Group DIABETES, TYPE 2 Active Condition 11/22/2014 [facility] Group VITAMIN D Active Condition 11/22/2014 Medica l DEFICIENCY Group LONG-TERM Active Condition 11/22/2014 Medica l (CURRENT) USE OF Barbie up OTHER MEDICATIONS 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) Medications Medication Details Route Status Patient Ordering Order Source Instructions Provider Date ARIMIDEX 1 MG TABS one tablet Active MH daily 014 [facility] GABAPENTIN 300 MG ONE PO QPM Active MH CAPS 014 Medical Group METFORMIN HCL 500 ONE PO QD Active MH MG TABS 014 Medical Group LISINOPRIL-HYDROCH ONE PO Active LOROTHIAZIDE 20-25 TWICE 014 Medic al MG TABS Group CATAPRES 0.1 MG ONE PO PRN Active TABS BP> 160 014 Medical Group GABAPENTIN 300 MG ONE PO QPM Active MH CAPS 014 Medical Group LISINOPRIL-HYDROCH ONE PO Active MH LOROTHIAZIDE 20-25 TWICE 014 Medic al MG TABS Group METFORMIN HCL 500 ONE PO bid Active MH MG TABS 014 Medical Group PHENAZOPYRIDINE one po tid No MH HCL 100 MG TABS Longer 013 Medical Active Group VITAMIN D3 2000 three po qd Active MH UNIT TABS 013 Medical Group ADVIL po prn Active MH 013 Medical Group HYDROCODONE-ACETAM one po q4-6 Active M H INOPHEN 7.5-325 MG hrs prn 013 Medic al TABS Group LEVAQUIN 250 MG as directed Active MH TABS prior to 013 Medical biopsies Group TRIAZOLAM 0.25 MG one po qhs No MH TABS Longer 013 Medical Active Group HYDROCODONE-ACETAM one po q4-6 No M H INOPHEN 7.5-325 MG hrs prn Longer 013 Medic al TABS Active Group CATAPRES 0.1 MG 1 po qd No MH TABS Longer 013 Medical Active Group DILTIAZEM HCL CR TAKE ONE Active MH 240 MG [id number] TABLET ONCE 012 Med ical A DAY Group VALIUM 5 MG TABS TAKE ONE Active MH TABLET 012 Medical DAILY Group NEEDED NITROSTAT 0.4 MG TAKE Active MH SUBL DIRECTED 012 Medical AND Group NEEDED FOR CHEST PAIN ASPIRIN EC 81 MG i po qd Active MH TBEC 012 Medical Group NAPROSYN 375 MG TAKE 1 No MH TABS TABLET BY Longer 012 Medical MOUTH TWICE Active Group DAILY NEEDED ASPIRIN EC 81 MG i po qd Active MH TBEC 012 Medical Group LISINOPRIL-HYDROCH ONE PO BID No MH LOROTHIAZIDE 20-25 Longer 012 Medic al MG TABS Active Group LISINOPRIL-HYDROCH ONE PO BID No MH LOROTHIAZIDE 20-25 Longer 012 Medic al MG TABS Active Group ZOCOR 40 MG TABS one po qhs Active MH 012 Medical Group Plavix 1 tablet Orally Active 75 MG Orally Kristi Ady Once a day Kristi Allergies, Adverse Reactions, Alerts Substance Category Reaction Severity Reaction Status Date Comments S ource type Reported N.K.D.A. Adverse Info Not Adverse Jermaine ael Reaction Available Reaction 9 Macr is Immunizations No Data Provided for This Section Results Order Name Results Value Reference Date Interpretation Comments Susi rce Range Hematology HCT 34.06 12/23 Medical Group Hematology [...] Group Chemistry CREATININE 2.25 0.60 - 02/23 MH 0. /2012 Medical Group Chemistry BUN/CREAT 14 (calc) [...] LDL 66 MG/DL - 130 11/08 (CALC) /2012 Medical Group Chemistry BUN 19 7 - [...] Medical Group Chemistry BUN/CREAT 20 11 - 26 04/10 Medical Group Chemistry SODIUM 139 134 [...] Data Provided for This Section Diagnostic Reports No Data Provided for This Section Consultation Notes No Data Provided for This Section Discharge Summaries No Data Provided for This Section History and Physicals No Data Provided for This Section Vital Signs Vital Sign Value Date Comments Source Weight 142 05/24/2019 Ady Berry Height 61 05/24/2019 Ady Berry Diastolic (mm Hg) 49 05/24/2019 Ady jones Systolic (mm Hg) 151 05/24/2019 Ady Hdz Weight 155 11/22/2014 [facility] Systolic (mm Hg) 130 11/22/2014 Medical Group Diastolic (mm Hg) 70 11/22/2014 Medical Group Heart Rate 88 11/22/2014 Medical Grou p Weight 149 05/24/2014 Medical Grou p Systolic (mm Hg) 116 05/24/2014 Medical Group Diastolic (mm Hg) 89 05/24/2014 Medical Group Heart Rate 68 05/24/2014 Medical Grou p Weight 146 11/09/2013 Medical Grou p Systolic (mm Hg) 140 11/09/2013 Medical Group Diastolic (mm Hg) 72 11/09/2013 Medical Group Heart Rate 76 11/09/2013 Medical Grou p Weight 153 05/11/2013 Medical Grou p Systolic (mm Hg) 140 05/11/2013 Medical Group Diastolic (mm Hg) 77 05/11/2013 Medical Group Heart Rate 76 05/11/2013 Medical Grou p Weight 176 10/18/2012 Medical Grou p Systolic (mm Hg) 160 10/18/2012 Medical Group Diastolic (mm Hg) 84 10/18/2012 Medical Group Heart Rate 80 10/18/2012 Medical Grou p Weight 177 04/09/2012 Medical Grou p Systolic (mm Hg) 130 04/09/2012 Medical Group Diastolic (mm Hg) 50 04/09/2012 Medical Group Heart Rate 66 04/09/2012 Medical Grou p Weight 181 04/11/2011 Medical Grou p Systolic (mm Hg) 124 04/11/2011 Medical Group Diastolic (mm Hg) 70 04/11/2011 Medical Group Heart Rate 71 04/11/2011 Medical Grou p Weight 181 10/10/2010 Medical Grou p Height 65 10/10/2010 Medical Grou p Systolic (mm Hg) 124 10/10/2010 Medical Group Diastolic (mm Hg) 70 10/10/2010 Medical Group Heart Rate 68 10/10/2010 Medical Grou p Weight 176 04/03/2010 Medical Grou p Systolic (mm Hg) 126 04/03/2010 Medical Group Diastolic (mm Hg) 70 04/03/2010 Medical Group Heart Rate 84 04/03/2010 Medical Grou p Encounters Location Location Encounter Encounter Reason Attending ADM DC Stat us Source Details Type Number For Provider Date Date Visit [facility] [id number] Lázaro Sargent, 05/24 05/24 [facility] Visit 460 MD [facility] [id number] Lázaro Sargent, 11/22 11/22 [facility] Visit 010 MD [facility] Procedures Procedure Code Date Perfomer Comments Source smoking/tobacco 14 11/09/2013 [facility] cessation, patient Cessation Group education and Handout Provided counseling Assessment and Plan No Data Provided for This Section Plan of Care No Data Provided for This Section Social History No Data Provided for This Section Family History No Data Provided for This Section Advance Directives No Data Provided for This Section Functional Status No Data Provided for This Section
--- OUTSIDE RECORDS SUMMARY | 2020-02-10 10:07 | XMS REPORT | Continuity of Care Document ---
:1935 Author Organization [facility] t Address [address] [place] [address] Care Team Providers Name Role Phone Asked, Pcp Primary Care Physician Unavailable Problems Condition Condition Condition Status Onset Resolution Last Treating Co mments Source Name Details Category Date Date Treatment Clinician Date POSTMASTEC Condition Active 2014-11-22 Memoria JESSEE 11-22 15:11:11 l LYMPHEDEMA 00:00: Reza n SYNDROME POSTMASTEC 00 JESSEE LYMPHEDEMA SYNDROME Active 11/22/2014 [facility] PERIPHERAL Condition Active 2014-11-22 Memoria NEUROPATHY 11-09 15:11:11 l 00:00: Yunior PERIPHERAL 00 NEUROPATHY Active 11/09/2013 Condition [facility] BLADDER Condition Active 2014-11-22 Me moria CANCER - 15:11:11 l BLADDER 00:00: [place] CANCER 00 Active 11/09/2013 Condition [facility] HEMATURIA, Condition Active 2014-11-22 Memoria HX OF 05-11 15:11:11 l 00:00: Yunior HEMATURIA, 00 HX OF Active 05/11/2013 [facility] RENAL Condition Active 2014-11-22 Mem oria INSUFFICIE 05-11 15:11:11 l NCY RENAL 00:00: Yunior INSUFFICIE 00 NCY Active 05/11/2013 Condition [facility] CAD Condition Active 2014-11-22 Mem oria 05-11 15:11:11 l CAD 00:00: [place] 00 Active 05/11/2013 Condition [facility] BREAST Condition Active 2014-11-22 Mem oria CANCER 11-09 15:11:11 l BREAST 00:00: [place] CANCER 00 Active 11/09/2012 Condition [facility] Primary Primary Problem Active [facility] osteoarthr osteoarthr Genet kes - itis of itis of Memoria left knee left knee l Outpati ent Clinics Acute pain Acute pain Problem Active [facility] left of left [facility] - knee knee [facility] l [facility] ent Clinics Sciatica Sciatica Problem Active [facility] left of left [facility] - side side [facility] l Outpati ent Clinics Generalize Generalize Problem Active [facility] d anxiety d anxiety Luke s - disorder disorder Memori a l Outpati ent Clinics Lymphedema Lymphedema Problem Active [facility] of upper of upper [facility] - extremity extremity Nadeem bambi l Outpati ent Clinics Diverticul Diverticul Problem Active [facility] osis large osis large Genet kes - intestine intestine Nadeem bambi w/o w/o l perforatio perforatio Ou tpati n or n or ent abscess abscess Clinics w/o w/o bleeding bleeding 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 kes - 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 Memoria pulmonary pulmonary l disease, disease, Outpat i unspecifie unspecifie en t d COPD d COPD Clinics type type Mixed Mixed Problem Active [facility] hyperlipid hyperlipid Genet kes - emia emia Memoria l Outpati ent Clinics Coronary Coronary Problem Active [facility] artery artery [facility] - disease of disease of Tx moria [place] artery of artery of Outp ati [place] ent heart with heart with Cl inics stable stable 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 [facility] (transcath (transcath Genet kes - eter eter Memoria aortic aortic l valve valve Outpati replacemen replacemen en t t), t), Clinics bioprosthe bioprosthe tic tic 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 associated associated l with type with type Outp ati 2 diabetes 2 diabetes en t mellitus mellitus Clinic s Age-relate Age-relate Problem Active [facility] d d [facility] - osteoporos osteoporos Me moria is without is without l current current Outpati pathologic pathologic en t al al Clinics fracture fracture Type 2 Type [address] [facility] diabetes diabetes [facility]ukes - mellitus mellitus Memori a with with l hyperglyce hyperglyce Ou tpati usman, usman, ent without without Clinics long-term long-term current current use of use of insulin insulin History of History of Problem Active [facility] bladder bladder [facility] - cancer cancer Memoria l Outpati ent Clinics Gastro-eso Gastro-eso Problem Active [facility] phageal phageal [facility]ukes - reflux reflux Memoria disease disease l without without Outpati esophagiti esophagiti en t s s Clinics Essential Essential Problem Active [facility] hypertensi hypertensi Genet kes - on on Memoria l Outpati ent Clinics Allergic Allergic Problem Active [facility] rhinitis, rhinitis, Luke s - unspecifie unspecifie Me moria d d l seasonalit seasonalit Ou tpati y, y, ent unspecifie unspecifie Cl inics d trigger d trigger History of History of Problem Active [facility] 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 Me moria l Outpati ent Clinics History of History of Problem Active [facility] malignant malignant Luke s - neoplasm neoplasm Memori a of both of both l breasts breasts Outpati ent Clinics 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 Genet kes - athy athy Memoria l Outpati ent Clinics Chronic Chronic Problem Active [facility] kidney kidney [facility] - disease, disease, Memori a stage 3 stage 3 l (moderate) (moderate) Ou tpati ent Clinics Type 2 Type [address] [facility] diabetes diabetes [facility] - mellitus mellitus Memori a with with l diabetic diabetic Outpat i chronic chronic ent kidney kidney Clinics disease disease Medicare Medicare Diagnosis Active [facility] annual annual [facility] - wellness wellness Memori a visit, visit, l subsequent subsequent Ou tpati ent Clinics HYPERTENSI Condition Active 2014-11-22 Memoria ON 15:11:11 tian Mojica HYPERTENSI ON Active Condition 11/22/2014 [facility] Group HYPERLIPID Condition Active 2014-11-22 Memoria EMIA 15:11:11 l Y[place] HYPERLIPID EMIA Active Condition 11/22/2014 Medical Group C O P D Condition Active 2014-11-22 Me moria 15:11:11 l C O P D [place] Active Condition 11/22/2014 Medical Group DIABETES, Condition Active 2014-11-22 Memoria TYPE 2 15:11:11 l [place] DIABETES, TYPE 2 Active Condition 11/22/2014 [facility] VITAMIN D Condition Active 2014-11-22 Memoria DEFICIENCY 15:11:11 l VITAMIN [place] D DEFICIENCY Active Condition 11/22/2014 [facility] LONG-TERM Condition Active 2014-11-22 Memoria (CURRENT) 15:11:11 l USE OF Yunior OTHER LONG-TERM MEDICATION (CURRENT) S USE OF OTHER MEDICATION S Active Condition 11/22/2014 [facility] Group S/P TAVR Diagnosis Active 2019-06-18 M emoria (transcath 02:00:27 l eter S/P TAVR Reza n aortic (transcath valve eter replacemen aortic t) valve replacemen t) Active Diagnosis 06/18/2019 Ady Berry Allergies, Adverse Reactions, Alerts Allergy Allergy Status Severity Reaction(s) Onset Inactive Treating Comm ents Source Name Type Date Date Clinician N.K.D.A. N.K.D.A. Active Info Not 2018-08 Nadeem bambi Available 0-08 l 00:00: [place] 00 Social History Social Habit Start Date Stop Date Quantity Comments Source Sex Assigned At [facility] ethodist Alcohol intake 2016-04-14 2016-04-14 Current [facility] thodist 00:00:00 00:00:00 non-drinker of alcohol (finding) Smoking Status Start Date Stop Date Source Never smoker [facility] Medications Ordered Filled Start Stop Current Ordering Indication Dosage Frequency Signature Comments Components Source Medication Medication Date Date Medication? Clinician (SIG) Name Name Plavix 2018-08 Yes Ady 1 tablet Nadeem bambi 08-18 Macris l 02:00: Yunior 27 ANASTROZOLE Yes Take by Rachel ston ORAL 8-22 mouth. Methodi 09:34: st 26 diazepam 2015-0 Yes 5mg Q6H Take 5 mg [place] (VALIUM) 5 8-22 by mouth Metho di MG tablet 09:34: every 6 st 26 (six) hours as needed for anxiety. lisinopril 2015- Yes 20mg QD Take 20 mg [place] (PRINIVIL,Z 8-22 by mouth Meth oscar ESTRIL) 20 09:34: daily. st MG tablet 26 metFORMIN Yes 500mg QD Take 500 Rachel ston XR 8-22 mg by Methodi (GLUCOPHATE 09:34: mouth st -XR) 500 MG 26 daily with 24 hr breakfast. tablet simvastatin 2015- Yes 40mg QD Take 40 mg Samuels (ZOCOR) 40 04-07 by mouth Metho di MG tablet 09:34: nightly. st 26 gabapentin 2015- Yes 300mg Q.[id number] Take 300 [place] (NEURONTIN) 8- [id number] mg by Herbert ethodi 300 MG 09:34: 3D mouth 3 st capsule 26 (three) times a day. traMADol 2015- Yes 50mg Q6H Take 50 mg Rachel ston (ULTRAM) 50 - by mouth Meth oscar mg tablet 09:34: every 6 st 26 (six) hours as needed for moderate pain. diltiazem 2015- Yes 240mg QD Take 240 Rachel ston CD 8-22 mg by Methodi (CardIZEM 09:34: mouth st CD) 240 MG 26 daily. 24 hr capsule LORATADINE Yes Take by Abigail woodson (CLARITIN 8 mouth. Methodi ORAL) 09:34: st 26 ERGOCALCIFE Yes Take by Rachel cheung ROL, - mouth. Methodi VITAMIN D2, 09:34: st (VITAMIN D2 26 ORAL) IBUPROFEN Yes Take by Eugene on (ADVIL 04-07 mouth. Methodi ORAL) 09:34: st 26 aspirin 2015- Yes 81mg QD Take 81 mg Abigail ton (ECOTRIN) 04-07 by mouth Method i 81 MG 09:34: daily. st enteric 26 coated tablet calcitonin, Yes INHALE 1 Ho malvin salmon, 04-02 (ONE) Methodi (MIACALCIN) 00:00: SOLUTION, s t 200 00 NASAL, unit/actuat DAILY. ion nasal spray tramadol-ac Yes 1{tbl} Q.[id number] Take 1 Samuels etaminophen 04-02 [id number] tablet by Methodi (ULTRACET) 00:00: 3D mouth 3 st 37.5-325 mg 00 (three) per tablet times a day as needed. anastrozole Yes 1mg QD Take 1 mg H yanira (ARIMIDEX) 03-17 by mouth Metho di 1 mg chemo 00:00: once st tablet 00 daily. naproxen Yes 500mg Q.5D Take 500 [place] (NAPROSYN) 7-27 mg by Methodi 500 MG 00:00: mouth 2 st tablet 00 (two) times a day as needed. simvastatin Yes TAKE 1 [place] (ZOCOR) 40 6-30 TABLET BY Meth oscar MG tablet 00:00: MOUTH AT st 00 BEDTIME. lisinopril- Yes 1{tbl} Q.5D Take 1 [place] hydrochloro 6-21 tablet by Met hodi thiazide 00:00: mouth 2 st (PRINZIDE,Z 00 (two) ESTORETIC) times a 20-25 mg day. per tablet ARIMIDEX 1 2013-08 Yes one tablet M emoria MG TABS 0-01 daily l 00:00: GABAPENTIN Yes ONE PO QPM M emoria 300 MG CAPS 3-03 l 00:00: METFORMIN Yes ONE PO QD Mem oria HCL 500 MG 3-03 l TABS 00:00: LISINOPRIL- Yes ONE PO Nadeem bambi HYDROCHLORO 3-03 TWICE l THIAZIDE 00:00: Yunior 20-25 MG 00 TABS CATAPRES Yes ONE PO PRN Mem oria 0.1 MG TABS 3-03 BP> 160 l 00:00: GABAPENTIN Yes ONE PO QPM M emoria 300 MG CAPS 3-03 l 00:00: LISINOPRIL- Yes ONE PO Nadeem bambi HYDROCHLORO 3-03 TWICE l THIAZIDE 00:00: Yunior 20-25 MG 00 TABS METFORMIN Yes ONE PO bid Me moria HCL 500 MG 3-03 l TABS 00:00: PHENAZOPYRI No one po tid Memoria DINE HCL 9-11 l 100 MG TABS 00:00: VITAMIN D3 Yes three po Mem oria 2000 UNIT 9-04 qd l TABS 00:00: ADVIL Yes po prn Memoria 9-04 l 00:00: HYDROCODONE Yes one po Nadeem bambi -ACETAMINOP 9-04 q4-6 hrs l HEN 7.5-325 00:00: prn Reza n MG TABS 00 LEVAQUIN Yes as Memoria 250 MG TABS 9-04 directed l 00:00: prior to biopsies TRIAZOLAM No one po qhs Me moria 0.25 MG 9-04 l TABS 00:00: HYDROCODONE No one po Nadeem bambi -ACETAMINOP 9-04 q4-6 hrs l HEN 7.5-325 00:00: prn Reza n MG TABS 00 CATAPRES No 1 po qd Memori a 0.1 MG TABS 3-04 l 00:00: DILTIAZEM Yes TAKE ONE Nadeem bambi HCL CR 240 8-24 TABLET l MG 00:00: ONCE A DAY Yunior [id number] 00 VALIUM 5 MG Yes TAKE ONE Me moria TABS 8-24 TABLET l 00:00: DAILY NEEDED NITROSTAT Yes TAKE Memor ia 0.4 MG SUBL 8-24 DIRECTED l 00:00: AND NEEDED FOR CHEST PAIN ASPIRIN EC Yes i po qd Nadeem bambi 81 MG TBEC 8-24 l 00:00: NAPROSYN No TAKE 1 Memoria 375 MG TABS 8-24 TABLET BY l 00:00: MOUTH TWICE DAILY NEEDED ASPIRIN EC Yes i po qd Nadeem bambi 81 MG TBEC 8-24 l 00:00: LISINOPRIL- No ONE PO BID Memoria HYDROCHLORO 8-14 l THIAZIDE 00:00: [place] 20-25 MG 00 TABS LISINOPRIL- No ONE PO BID Memoria HYDROCHLORO 8-14 l THIAZIDE 00:00: Yunior 20-25 MG 00 TABS ZOCOR 40 MG Yes one po qhs Memoria TABS 7-03 l 00:00: Anastrozole Anastrozole Yes Mike TAKE [address] [facility] [address] [place] TABLET BY [facility] - MOUTH Memoria EVERY DAY l Outpati ent Clinics Tramadol Tramadol Yes Mike (Schedule [facility] HCl HCl [facility] IV Drug) [facility] - TAKE 1 Memoria TABLET (50 l MG) BY Outpati MOUTH ent EVERY 8 Clinics HOURS NEEDED Loratadine Loratadine Yes Mike TAKE [address] [facility] [place] TABLET BY [facility] - MOUTH Memoria EVERY DAY l [facility] Metformin Metformin Yes Mike TAKE [address] HCl HCl [place] TABLET [facility] - (500 MG) Memoria BY MOUTH 2 l TIMES PER Outpati DAY WITH ent MEALS Clinics Simvastatin Simvastatin Yes Mike TAKE [address] [facility] [place] TABLET BY [facility] - MOUTH AT [facility] BEDTIME l [facility] Gabapentin Gabapentin Yes Mike TAKE [address] [facility] [place] CAPSULE BY [facility] - MOUTH AT [facility] BEDTIME. l [facility] Diltiazem Diltiazem Yes Mike TAKE ONE [facility] HCl ER HCl ER [place] CAPSULE BY Luke s - Beads Beads MOUTH [facility] EVERY DAY l [facility] Calcium Calcium Yes Mike [address] [facility] 1200 1200 [place] with a Lukes - meal 6 Memoria days a l week [facility] Prolia Prolia Yes Mike as [facility] directed [facility] - [facility] l [facility] Diazepam Diazepam Yes Mike [address] [facility] as needed [facility] - for Memoria anxiety l [facility] Aspirin 81 Aspirin 81 Yes Mike [address] [facility]ics Eliquis Eliquis Yes Mike TAKE 1 [facility] [place] TABLET BY [facility] - MOUTH [facility] TWICE A l DAY FOR 90 Outpati DAYS ent Clinics 50+ 50+ Yes Mike not [facility] Stockroom Attendant Stockroom Attendant [place] defined L ukes - Womens Womens [facility] l [facility] Olmesartan Olmesartan Yes Mike TAKE [address] [facility] Medoxomil Medoxomil [facility] Nitroglycer Nitroglycer Yes Mike as [facility] in in [place] directed [facility] Vital Signs Vital Name Observation Time Observation Value Comments Source Weight 2019-05-24 19:15:00 Chuy Mojica Height 2019-05-24 19:15:00 Chuy Mojica Diastolic (mm Hg) 2019-05-24 19:15:00 Dhara Mojica Systolic (mm Hg) 2019-05-24 19:15:00 Nadeem Mojica Weight 2014-11-22 20:11:11 [facility] Yunior Systolic (mm Hg) 2014-11-22 20:11:11 Nadeem rial [place] Diastolic (mm Hg) 2014-11-22 20:11:11 Mem orial [place] Heart Rate 2014-11-22 20:11:11 Memorial [place] Weight 2014-05-24 20:07:31 Memorial [place] Systolic (mm Hg) 2014-05-24 20:07:31 Nadeem rial [place] Diastolic (mm Hg) 2014-05-24 20:07:31 Mem orial [place] Heart Rate 2014-05-24 20:07:31 Memorial [place] Weight 2013-11-09 19:23:21 Memorial Yunior Systolic (mm Hg) 2013-11-09 19:23:21 Nadeem rial [place] Diastolic (mm Hg) 2013-11-09 19:23:21 Mem orial Yunior Heart Rate 2013-11-09 19:23:21 Memorial Yunior Weight 2013-05-11 19:51:50 Memorial Yunior Systolic (mm Hg) 2013-05-11 19:51:50 Nadeem rial [place] Diastolic (mm Hg) 2013-05-11 19:51:50 Mem orial Yunior Heart Rate 2013-05-11 19:51:50 Memorial [place] Weight 2012-10-18 21:02:00 Memorial Yunior Systolic (mm Hg) 2012-10-18 21:02:00 Nadeem rial Yunior Diastolic (mm Hg) 2012-10-18 21:02:00 Mem orial [place] Heart Rate 2012-10-18 21:02:00 Memorial Yunior Weight 2012-04-09 13:43:01 Memorial [place] Systolic (mm Hg) 2012-04-09 13:43:01 Nadeem rial [place] Diastolic (mm Hg) 2012-04-09 13:43:01 Mem orial [place] Heart Rate 2012-04-09 13:43:01 Memorial Yunior Weight 2011-04-11 15:41:18 Memorial [place] Systolic (mm Hg) 2011-04-11 15:41:18 Nadeem rial [place] Diastolic (mm Hg) 2011-04-11 15:41:18 Mem orial [place] Heart Rate 2011-04-11 15:41:18 Memorial Yunior Weight 2010-10-10 16:41:18 Memorial [place] Height 2010-10-10 16:41:18 Memorial Yunior Systolic (mm Hg) 2010-10-10 16:41:18 Nadeem rial Y[place] Diastolic (mm Hg) 2010-10-10 16:41:18 Mem orial Yunior Heart Rate 2010-10-10 16:41:18 Memorial [place] Weight 2010-04-03 15:41:18 Memorial Yunior Systolic (mm Hg) 2010-04-03 15:41:18 Nadeem rial [place] Diastolic (mm Hg) 2010-04-03 15:41:18 Mem orial [place] Heart Rate 2010-04-03 15:41:18 Memorial Yunior Procedures Procedure Date / Time Performed Performing Clinician [facility] juan daniel smoking/tobacco 2013-11-09 19:23:21 Chuy vallejo cessation, patient education and counseling Plan of Care Planned Activity Planned Date Details Comments Source Future Scheduled 2020-03-17 INFLUENZA VACCINE [place] [facility] 00:00:00 [code = INFLUENZA VACCINE] Future Scheduled 2000 65+ PNEUMOCOCCAL [place] [facility] 00:00:00 VACCINE (1 of 2 - PCV13) [code = 65+ PNEUMOCOCCAL VACCINE (1 of 2 - PCV13)] Future Scheduled 1985 [facility]:00:00 [code = SHINGLES VACCINES (#1)] Encounters Start End Encounter Admission Attending Care Care Encounter Source Date/Time Date/Time Type Type Clinicians Facility Department ID 2019-06-14 Outpatient [facility] [id number] Me moria 08:22:36 l [place] [facility] 2019-05-17 Inpatient [facility] [id number] Mem oria 06:43:00 l [place] [facility] 2019-05-13 Outpatient [facility] [id number] Me moria 12:47:12 l [place] [facility] 2019-12-09 2019-12-09 [facility] [id number] [facility] 10:00:00 10:00:00 [facility] l Medicine Outpati ent Clinics 2019-12-09 2019-12-09 [facility] [id number] 09:45:00 09:45:00 [facility] l Medicine Outpati ent Clinics 2019-12-06 2019-12-06 [facility] [id number] 14:22:00 14:22:00 t [employer] [facility] Medicine Outpati ent Clinics 2019-10-12 2019-10-12 [facility] [id number] 14:30:00 14:30:00 t [employer] [facility] - [facility] 2019-10-12 2019-10-12 [facility] [id number] 10:00:00 10:00:00 t [place] [employer] [facility] Outpati ent Clinics 2019-06-29 2019-06-29 Outpatient [facility] [id number] Memoria 10:11:00 10:11:00 l [facility] 2019-05-24 2019-05-24 Outpatient Ady Arango [id number] [facility]Clinic 14:15:00 14:15:00 Kristi Berry MD al Works 2019-04-26 2019-04-26 Outpatient [facility] [id number] Memoria 06:54:00 06:54:00 l [facility] 2019-04-04 2019-04-04 Outpatient [facility] [id number] Memoria 11:24:00 11:24:00 l [facility] 2018-04-06 2018-04-06 [facility] [id number] 08:00:00 08:00:00 t [facility] 2018-03-15 2018-03-15 [facility] [id number] 08:30:00 08:30:00 t [facility] Results Test Description Test Time Test Comments Results Result Sour e Comments Hematology 2013-12-23 34.06 [facility] 22:18:44 Yunior Hematology 2013-12-23 11.40 Memorial 22:18:44 [place] Hematology 2013-12-23 205 Memorial 22:18:44 Yunior Chemistry 2013-12-18 141 Memorial 11:18:00 Yunior Chemistry 2013-12-18 48 Memorial 11:18:00 [place] Chemistry 2013-12-18 177 Memorial 11:18:00 Yunior Chemistry 2013-12-18 58 MG/DL (CALC) Memorial 11:18:00 [place] Hematology 2013-12-02 36.28 Memorial 14:37:02 [place] Hematology 2013-12-02 12.11 Memorial 14:37:02 [place] Hematology 2013-12-02 196 Memorial 14:37:02 Yunior Chemistry 2013-11-09 135 Memorial 22:20:44 Yunior Chemistry 2013-11-09 4.0 Memorial 22:20:44 Yunior Chemistry 2013-11-09 22 Memorial 22:20:44 [place] Chemistry 2013-11-09 1.04 Memorial 22:20:44 Yunior Chemistry 2013-11-09 9.9 Memorial 22:20:44 Yunior Chemistry 2013-11-09 17 Memorial 22:20:44 [place] Chemistry 2013-11-09 17 Memorial 22:20:44 Yunior Chemistry 2013-02-23 32 Memorial 07:48:00 Yunior Chemistry 2013-02-23 2.25 Memorial 07:48:00 [place] Chemistry 2013-02-23 14 (calc) Memorial 07:48:00 Yunior Chemistry 2013-02-23 135 Memorial 07:48:00 [place] Chemistry 2013-02-23 4.7 Memorial 07:48:00 [place] Chemistry 2013-02-23 9.3 Memorial 07:48:00 [place] Chemistry 2012-12-10 138 Memorial 16:16:06 [place] Chemistry 2012-12-10 4.2 Memorial 16:16:06 [place] Chemistry 2012-12-10 6.9 Memorial 16:16:06 Yunior Chemistry 2012-12-10 27 Memorial 16:16:06 [place] Chemistry 2012-12-10 1.04 Memorial 16:16:06 Yunior Chemistry 2012-12-10 16 Memorial 16:16:06 [place] Chemistry 2012-12-10 16 Memorial 16:16:06 [place] Chemistry 2012-12-10 98 Memorial 16:16:06 Yunior Hematology 2012-12-10 36.0 Memorial 16:16:06 Yunior Hematology 2012-12-10 12.1 Memorial 16:16:06 Yunior Hematology 2012-12-10 238 Memorial 16:16:06 Yunior Chemistry 2012-11-08 130 Memorial 06:54:00 [place] Chemistry 2012-11-08 39 Memorial 06:54:00 [place] Chemistry 2012-11-08 126 Memorial 06:54:00 Yunior Chemistry 2012-11-08 66 MG/DL (CALC) Memorial 06:54:00 Yunior Chemistry 2012-11-08 19 Memorial 06:54:00 [place] Chemistry 2012-11-08 0.93 Memorial 06:54:00 Yunior Chemistry 2012-11-08 NOT APPLICABLE Memorial 06:54:00 (calc) Yunior Chemistry 2012-11-08 138 Memorial 06:54:00 Yunior Chemistry 2012-11-08 4.7 Memorial 06:54:00 [place] Chemistry 2012-11-08 10.1 Memorial 06:54:00 [place] Chemistry 2012-11-08 4.3 Memorial 06:54:00 Yuniro Chemistry 2012-11-08 110 Memorial 06:54:00 [place] Chemistry 2012-11-08 14 Memorial 06:54:00 Yunior Chemistry 2012-11-08 16 Memorial 06:54:00 [place] Chemistry 2012-11-08 7.1 % OF TOTAL Memorial 06:54:00 HGB [place] Chemistry 2012-04-10 21 Memorial 11:51:00 Yunior Chemistry 2012-04-10 16 Memorial 10:19:00 Yunior Chemistry 2012-04-10 0.80 Memorial 10:19:00 Yunior Chemistry 2012-04-10 10:19:00 Test Item Value Reference Range Interpretation Comme nts BUN/CREAT (test code = BUN/CREAT) 20 1 07-12 [facility] CpguhqlNubjcrxmi6545-84-59 10:19:68955Uyokvtwa [facility] 2012-04-10 10:19:004.2[facility] FndemhwDtrolhrjh5209-12-31 10:19:009.7[facility]orial KyqwemuMbmdyrdua6201-26-72 10:19:004.2[facility] NmuhqomIgwmkaeup5816-51-97 10:19:08553Geonsbmz RuaxmskWeqjxjvwp8671-86-21 10:19:0019[facility] [place] Vokdlmftr3313-47-21 10:19:34216Lromirjm NnaleytZrlctqkei1485-35-80 10:19:11907 Memorial CouainkQnhcdezzb2949-91-42 10:19:0044[facility] 2012-04-10 10:19:66984.0[facility] EstuuowRnkorrntc0028-44-15 10:19:0068[facility]orial QrprwgrXbbxvyrfk9866-50-98 15:41:186.3[facility]orial EdmsqowAzytpfpfq1665-90-41 16:41:69605Nyljihbd OpnfjhvHnejxnrxa6272-96-48 16:41:1850[facility] [place] Hymsfavqs1568-24-56 16:41:1898[facility] IyzrzseBqezakigy0601-29-60 16:41:97948 Memorial DldjckfUmrkhzqla4392-99-72 16:41:184.5[facility] 2010-10-10 16:41:1819[facility] OiqcrkqLhtthdyfr8453-72-06 16:41:1815[facility] IyoajhkPeqtpmnwy5819-72-88 16:41:62465Iylketlq SbahpxgUcaoaegbr6202-68-35 16:41:1815[facility] VrpsosoQossxlbcc3360-66-54 16:41:180.92[facility] [place] Xuoyseopo8416-99-08 16:41:184.4[facility] JraovfuEzhcabipt9523-37-15 16:41:186.6 Memorial RfpphcvNzcyqamrx5790-00-82 16:41:1810.3[facility] 2010-04-04 15:41:12642Cuvshpqu TjprobzHscqofttf3171-79-05 15:41:1848[facility] WrnquzlFtawecove5415-59-82 15:41:76804Bspbhyff XvpgttsKvcjcttel7228-87-42 15:41:61153Ensuwqvk FndjvfvBimgyjujs5203-40-27 15:41:186.6[facility] [place] Yzmsozxmj6415-68-73 15:41:1816Memorial VqyajigUiwgkfwph9733-96-93 15:41:1813 Memorial BronsvtLeennocci7968-90-30 15:41:42828Vigeayti [facility]ann[facility] 2010-04-04 15:41:1820[facility] WlcojjsObcffftgd3574-45-31 15:41:180.91[facility] KjdpsdwKsroncepi3072-21-57 15:41:185.0[facility]orial ZmazmzyDnwckxkrf6322-65-01 15:41:189.7[facility] AngkrhoNuqvadeku3694-62-28 15:41:95159Hwohplit Yunior Tzitutjbz4220-57-71 15:41:1854[facility] WpfizclRnxjdbxlj3923-00-56 15:41:1898 [facility] PgywwvcRnyayijvu2483-53-11 15:41:28723Hglzaosc [employer]ann[employer] 2008-06-06 15:41:184.0[facility] BxdocssRdkbjygnp3736-56-73 15:41:1816[facility] EhhkcuiLqrqtkvky5812-65-18 15:41:1817[facility] IbinhhpZuumuqyof4518-16-95 15:41:35887Ukfqirwg LtkhacqPitjlrhmv1628-61-76 15:41:1814[facility] Yunior Ivxtwduvg8911-47-78 15:41:180.94[facility] VjbayytEjxaucpeb0116-85-83 15:41:184.0 [facility] ChnodukDnxccosbp1401-11-01 15:41:189.8[facility] Yunior
[2020-02-10 10:08] VITALS: BP 164/59; TEMP 97.1; O2SAT 97
--- OUTSIDE RECORDS SUMMARY | 2020-02-10 10:08 | XMS REPORT ---
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 Medications Medication Code Code Instructions Start End Status Dosage System Date Date Loratadine [facility] 17967566590 10 MG Oral Active TAKE 1 TABLET BY MOUTH EVERY DAY Eliquis [facility] 77329195847 5 MG Oral Active TAKE 1 TABLET BY MOUTH TWICE A DAY FOR 90 DAYS Nitroglycerin [facility] 49926643489 0.4 MG Active as dir ected Sublingual Diazepam [facility] 98031501850 5 MG Orally Active 1 table t as Once a day needed for anxiety Anastrozole [facility] 25214652917 1 MG Oral Active TAKE 1 TABLET BY MOUTH EVERY DAY Diltiazem HCl ER [facility] 37785517891 240 MG Oral Active TAKE ONE Beads CAPSULE BY MOUTH EVERY DAY Calcium 1200 [facility] 02544241833 6585-1441 Active 1 tab let MG-UNIT Orally with a me al Once a day 6 days a week 50+ Head Of Ethics And Compliance [facility] 0 Active not define d Womens Olmesartan [facility] 43208880998 40 MG Oral Active TAKE 1 Medoxomil TABLET BY MOUTH EVERY DAY Prolia [facility] 41149564092 60 MG/ML Active as directed Subcutaneous Tramadol HCl [facility] 97062626296 50 MG Oral Active (Daphnie edule IV Drug) TAKE 1 TABLET (50 MG) BY MOUTH EVERY 8 HOURS NEEDED Simvastatin [facility] 30481413897 40 MG Oral Active TAKE 1 TABLET BY MOUTH AT BEDTIME Gabapentin [facility] 81686093158 300 MG Oral Active TAKE 1 CAPSULE BY MOUTH AT BEDTIME. Metformin HCl [facility] 29406197293 500 MG Oral Active TA KE 1 TABLET (500 MG) BY MOUTH 2 TIMES PER DAY WITH MEALS Aspirin 81 [facility] 18660305978 81 MG Orally Active 1 ta blet Once a day Results No Known Results Summary Purpose eClinicalWorks Submission
--- OUTSIDE RECORDS SUMMARY | 2020-02-10 10:08 | XMS REPORT ---
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
--- OUTSIDE RECORDS SUMMARY | 2020-02-10 10:08 | XMS REPORT ---
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 Assessment Type [...] End Status Dosage System Date Date Nitroglycerin [facility][NOTE 3] 77765621081 0.4 MG Active as dir ected Sublingual Prolia [facility][NOTE 3] 73533468678 60 MG/ML Active as directed Subcutaneous Metformin HCl [facility][NOTE 3] 57453725888 500 MG Oral Active TA KE 1 TABLET (500 MG) BY MOUTH 2 TIMES PER DAY WITH MEALS Simvastatin [facility][NOTE 3] 58405770045 40 MG Oral Active TAKE 1 TABLET BY MOUTH AT BEDTIME Calcium 1200 [facility][NOTE 3] 20166868340 8406-1928 Active 1 tab let MG-UNIT Orally with a me al Once a day 6 days a week Loratadine [facility][NOTE 3] 61447121104 10 MG Oral Active TAKE 1 TABLET BY MOUTH EVERY DAY Olmesartan [facility][NOTE 3] 38161650064 40 MG Oral Active TAKE 1 Medoxomil TABLET BY MOUTH EVERY DAY Eliquis [facility][NOTE 3] 78793772308 5 MG Oral Active TAKE 1 TABLET BY MOUTH TWICE A DAY FOR 90 DAYS Diltiazem HCl ER [facility][NOTE 3] 37428756888 240 MG Oral Active TAKE ONE Beads CAPSULE BY MOUTH EVERY DAY Tramadol HCl [facility][NOTE 3] 61831168808 50 MG Oral Active (Daphnie edule IV Drug) TAKE 1 TABLET (50 MG) BY MOUTH EVERY 8 HOURS NEEDED Gabapentin [facility][NOTE 3] 10847144731 300 MG Oral Active TAKE 1 CAPSULE BY MOUTH AT BEDTIME. 50+ [employer] In[employer] [place] 0 Active not define d Womens Aspirin 81 [facility][NOTE 3] 26838999610 81 MG Orally Active 1 ta blet Once a day Anastrozole [facility][NOTE 3] 74516720063 1 MG Oral Active TAKE 1 TABLET BY MOUTH EVERY DAY Diazepam [facility][NOTE 3] 36676838470 5 MG Orally Active 1 table t as Once a day needed for anxiety Results No Known Results Summary Purpose eClinicalWorks Submission
[2020-02-10 10:10] LABS: Absolute Lymphocytes (CBC) 1.4 K/uL (0.7-4.9); Basophils % 1.5 % (0-1.3); Hematocrit 35.5 % (36.0-45.0); Lymphocytes % 21.1 % (15.3-44.8); MPV 11.4 fL (7.6-11.3); RBC Red Blood Cell Count 4.32 M/uL (3.86-4.86)
[2020-02-10 10:26] LABS: Albumin 3.2 g/dL (3.4-5.0); Bilirubin Total 0.3 mg/dL (0.2-1.0); Potassium 3.8 mmol/L (3.5-5.1); Protein, Total 6.2 g/dL (6.4-8.2)
== END 2020-02-10 09:55 | disposition home or self-care (01) ==
LOC: DS 08:52
PROVIDERS: ATTEND Internal Medicine Hematology & Oncology
DX: Z45.2 Encounter for adjustment and management of vascular access device (principal); C50.919 Malignant neoplasm of unspecified site of unspecified female breast; E11.65 Type 2 diabetes mellitus with hyperglycemia
CPT/HCPCS: 85025; 36415; 80061; 83036; 80053; 96523; J1642

== ENCOUNTER 2020-05-14 09:30 | Day surgery (SDC) | payer OTHER ==
--- OUTSIDE RECORDS SUMMARY | 2020-05-14 09:32 | XMS REPORT | Clinical Summary ---
:1935 Author Organization [facility] Address [address] [place] [address] Care Team Providers Name Role Phone Asked, Pcp Primary Care Provider Unavailable Allergies No Known Active Allergies Medications Medication Sig Dispensed Refills Start [...] (#1) 1985 65+ PNEUMOCOCCAL VACCINE (1 of 1 - PPSV23) 2000 INFLUENZA VACCINE 03/17/2020 Results Not on fileafter 05/14/2019 Insurance Payer Benefit Plan / Subscriber ID Effective Phone Address T ype Group Dates MEDICARE MEDICARE PART [id number] 2000-Pres [place] X Medicare A AND B ent [facility] [id number] 2016-Pres Erik shepherd NEPALESE NEPALESE ent Advance Directives For more information, please contact: [phone] Type Date Recorded Patient International 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
--- OUTSIDE RECORDS SUMMARY | 2020-05-14 09:33 | XMS REPORT | Continuity of Care Document ---
:1935 Author Organization [employer] Care Team Providers Name Role Phone [employer] Unavailable Un available Problems Problem Status Onset Classification Date Comments Sourc e Date Reported POSTMASTECTOMY Active 11/23/19 Condition 11/22/2014 [facility] edical LYMPHEDEMA 15 Group SYNDROME PERIPHERAL Active 11/10/19 Condition 11/22/2014 Medic al NEUROPATHY 14 Group BLADDER CANCER Active 11/10/19 Condition 11/22/2014 [facility] edical 14 Group HEMATURIA, HX OF Active 05/11/20 Condition 11/22/2014 Medical 13 Group RENAL Active 05/11/20 Condition 11/22/2014 Medica l INSUFFICIENCY 13 Group CAD Active 05/11/20 Condition 11/22/2014 Medica l 13 Group BREAST CANCER Active 11/10/19 Condition 11/22/2014 [facility] dical 13 Group HYPERTENSION Active Condition 11/22/2014 Med ical Group HYPERLIPIDEMIA Active Condition 11/22/2014 [facility] edical Group C O P D Active Condition 11/22/2014 Medica l Group DIABETES, TYPE 2 Active Condition 11/22/2014 Medical Group VITAMIN D Active Condition 11/22/2014 Medica l DEFICIENCY Group LONG-TERM Active Condition 11/22/2014 Medica l (CURRENT) USE OF Barbie up OTHER MEDICATIONS S/P TAVR Active Diagnosis 06/18/2019 Ayd (transcatheter Corey s aortic valve replacement) Medications [...] CR TAKE ONE Active MH 240 MG [id number] TABLET ONCE 012 Med ical A DAY [...] 1 tablet Orally Active 75 MG Orally Hanyris Ady Once a day Macris Allergies, Adverse Reactions, Alerts Substance Category Reaction [...] For Provider Date Date [facility] [id number] Lázaro Sargent, 05/24 05/24 [facility] [id number] Lázaro Sargent, 11/22 11/22 [facility] Visit [facility] Procedures Procedure Code Date Perfomer [...]
--- OUTSIDE RECORDS SUMMARY | 2020-05-14 09:34 | XMS REPORT ---
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 Assessment Age-related osteoporosis without M81.0 Active current pathological fracture Problem 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), bioprosthetic Assessment Essential hypertension I10 Activ e Problem 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 Assessment Type [...] osteoarthritis of left knee M17.12 Active Assessment Anemia, unspecified type D64.9 Act natalie Problem Type 2 diabetes mellitus with E11.22 Active diabetic chronic kidney disease Assessment Allergic rhinitis, unspecified J30.9 Active seasonality, unspecified trigger Problem Generalized anxiety disorder F41.1 Active Assessment History of bilateral mastectomy Z90.13 Active Problem Gastro-esophageal reflux disease K21.9 Active without esophagitis Assessment Type 2 diabetes mellitus with E11.22 Active diabetic chronic kidney disease Problem Age-related osteoporosis without M81.0 Active current pathological fracture Assessment 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 Problem Essential hypertension I10 Activ e Assessment [...] Active with type 2 diabetes mellitus Assessment Gastro-esophageal reflux disease K21.9 Active without esophagitis Problem Allergic rhinitis, unspecified J30.9 Active seasonality, unspecified trigger Assessment Diaphragmatic hernia without K44.9 Active obstruction or gangrene Problem Peripheral polyneuropathy G62.9 Ac tive Problem 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 85058815631 5 MG Oral Active TAKE 1 TABLET BY MOUTH TWICE A DAY FOR [address] [facility] 30202449902 40 MG Oral Active TAKE 1 Medoxomil TABLET BY MOUTH EVERY DAY Simvastatin [facility] 03191826785 40 MG Oral Active TAKE 1 TABLET BY MOUTH AT BEDTIME Diltiazem HCl ER [facility] 06146154636 240 MG Oral Active TAKE ONE Beads CAPSULE BY MOUTH EVERY DAY Calcium [address] [facility] 29520026785 3259-5355 Active 1 tab let MG-UNIT Orally with a me al Once a day 6 days a week Aspirin [address] [facility] 93427009646 81 MG Orally Active 1 ta blet Once a day Prolia [facility] 47467349176 60 MG/ML Active as directed Subcutaneous Loratadine [facility] 46072190729 10 MG Oral Active TAKE 1 TABLET BY MOUTH EVERY DAY Anastrozole [facility] 81425939702 1 MG Oral Active TAKE 1 TABLET BY MOUTH EVERY DAY Nitroglycerin [facility] 23212107981 0.4 MG Active as dir ected Sublingual Tramadol HCl 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 33353962418 40 MG Active TAKE 1 Medoxomil TABLET BY MOUTH EVERY DAY Diazepam [facility] 95351121633 5 MG Orally Active 1 table t as Once a day needed for anxiety Gabapentin [facility] 09925823285 300 MG Oral Active TAKE 1 CAPSULE BY MOUTH AT BEDTIME. Gabapentin [facility] 39546854516 300 MG Active TAKE 1 CAPSULE BY MOUTH AT BEDTIME. Metformin HCl [facility] 90927824362 500 MG Active TAKE 1 TABLET BY MOUTH TWICE A DAY WITH MEALS Metformin HCl [facility] 12283217822 500 MG Oral Active TA KE 1 TABLET (500 MG) BY MOUTH 2 TIMES PER DAY WITH MEALS Results No Known Results Summary Purpose eClinicalWorks Submission
--- OUTSIDE RECORDS SUMMARY | 2020-05-14 09:34 | XMS REPORT | Continuity of Care Document ---
:1935 Author Organization [facility] t Address [address] [place] [address] Care Team Providers Name Role Phone Asked, [...] 2014-11-22 [facility] NEUROPATHY 11-09 15:11:11 l 00:00: [place] PERIPHERAL 00 NEUROPATHY Active 11/09/2013 [facility] BLADDER Condition Active 2014-11-22 Me moria CANCER 3- 15:11:11 l BLADDER 00:00: [place] CANCER 00 Active 11/09/2013 [facility] HEMATURIA, Condition Active 2014-11-22 Memoria HX OF 05-11 15:11:11 l 00:00: [place] HEMATURIA, 00 HX OF Active 05/11/2013 [facility] RENAL Condition Active 2014-11-22 Mem oria INSUFFICIE 05-11 15:11:11 l NCY RENAL 00:00: [place] INSUFFICIE 00 NCY Active 05/11/2013 [facility] CAD Condition Active 2014-11-22 Mem oria 05-11 15:11:11 l CAD 00:00: [place] 00 Active 05/11/2013 [facility] BREAST Condition Active 2014-11-22 Mem oria CANCER 11-09 15:11:11 l BREAST 00:00: [facility] CANCER 00 Active 11/09/2012 Condition 5 Medical [...] artery [facility] - disease of disease of Ca mor[place] artery of artery of Outp ati [place] ent heart with heart with Cl inics [...] en t s s Clinics Essential Essential Diagnosis Active C [facility] hypertensi hypertensi Genet kes - on [...] chronic ent kidney kidney Clinics disease disease HYPERTENSI Condition Active 2014-11-22 Memoria ON 15:11:11 l Y[facility] HYPERTENSI ON Active Condition 11/22/2014 [facility] Group HYPERLIPID Condition Active 2014-11-22 Memoria EMIA 15:11:11 l [place] HYPERLIPID EMIA Active Condition 11/22/2014 [facility] Group C O P D Condition Active 2014-11-22 Me moria 15:11:11 l C O P D Yunior Active Condition 11/22/2014 [facility] Group DIABETES, Condition Active 2014-11-22 Memoria TYPE 2 15:11:11 tian Mojica DIABETES, TYPE 2 Active Condition 11/22/2014 Medical Group VITAMIN D Condition Active 2014-11-22 [facility] DEFICIENCY 15:11:11 l VITAMIN Yunior D DEFICIENCY Active Condition 11/22/2014 [facility] Group LONG-TERM Condition Active 2014-11-22 Memoria (CURRENT) 15:11:11 [...] ents Source Name Type Date Date Clinician N.K.Vicente.A. N.K.Vicente.A. Active Info Not 2018-08 Nadeem bambi Available 008 l 00:00: 00 Social History Social Habit Start Date Stop Date Quantity Comments Source Sex Assigned At [facility] ethodist Alcohol intake 2016-04-14 2016-04-14 Current [facility] thodist 00:00:00 00:00:00 non-drinker of alcohol (finding) Smoking Status Start Date Stop Date Source Never smoker [facility] Medications Ordered Filled Start Stop Current Ordering Indication Dosage Frequency Signature Comments Components Source Medication Medication Date Date Medication? Clinician (SIG) Name Name Losartan Losartan Yes Mike [address] [facility] Potassium Potassium 04-03 Joyalian Sotelo s - 00:00: [facility] 00 [facility] Plavix 2018-08 Yes Ady 1 tablet Nadeem bambi 08-18 Macris l 02:00: Yunior 27 ANASTROZOLE Yes Take by Rachel ston ORAL 8-22 mouth. Methodi 09:34: st 26 diazepam Yes 5mg Q6H Take 5 mg [place] (VALIUM) 5 8- by mouth Metho di MG tablet 09:34: every 6 st 26 (six) hours as needed for anxiety. lisinopril Yes 20mg QD Take 20 mg H [...] nightly. st 26 gabapentin 2015- Yes 300mg [id number] Take 300 Samuels (NEURONTIN) 04-07 [id number] mg by M ethodi 300 MG 09:34: 3D mouth 3 st capsule 26 (three) times a day. traMADol 2015- Yes 50mg Q6H Take 50 mg Rachel ston (ULTRAM) 50 04-07 by mouth Meth oscar mg tablet 09:34: every 6 st 26 (six) hours as needed for moderate pain. diltiazem 2015- Yes 240mg QD Take 240 Rachel ston CD 8-22 mg by Methodi (CardIZEM 09:34: mouth st CD) 240 MG 26 daily. 24 hr capsule LORATADINE Yes Take by Abigail woodson (CLARITIN 8- mouth. Methodi ORAL) 09:34: st 26 ERGOCALCIFE Yes Take by Rachel ston ROL, 04-07 mouth. Methodi VITAMIN D2, 09:34: st (VITAMIN D2 26 ORAL) IBUPROFEN Yes Take by Eugene on (ADVIL 04-07 mouth. Methodi ORAL) 09:34: st 26 aspirin Yes 81mg QD Take 81 mg Abigail ton (ECOTRIN) 04-07 by mouth Method i 81 MG 09:34: daily. st enteric 26 coated tablet calcitonin, Yes INHALE 1 Ho ton salmon, 04-02 (ONE) Methodi (MIACALCIN) 00:00: SOLUTION, s t 200 00 NASAL, unit/actuat DAILY. ion nasal spray tramadol-ac 2015- Yes 1{tbl} [id number] Take 1 Samuels etaminophen 04-02 [id number] tablet by Methodi (ULTRACET) 00:00: 3D mouth [...] bambi HYDROCHLORO 3-03 TWICE l THIAZIDE 00:00: [place] 20-25 MG 00 TABS CATAPRES Yes ONE [...] TABS 9-04 directed l 00:00: prior to Yunior 00 biopsies TRIAZOLAM No one po qhs Me moria 0.25 MG 9-04 l TABS 00:00: [place] HYDROCODONE No one po Nadeem bambi -ACETAMINOP 9-04 q4-6 hrs l HEN 7.5-325 00:00: prn Reza n MG TABS 00 CATAPRES No 1 po qd Memori a 0.1 MG TABS 3-04 l 00:00: Yun[place] 00 DILTIAZEM Yes TAKE ONE Nadeem bambi HCL CR 240 8-24 TABLET l MG 00:00: ONCE A DAY Yunior [id number] 00 VALIUM 5 MG Yes TAKE ONE Me moria TABS 8-24 TABLET l 00:00: DAILY [place] NEEDED NITROSTAT Yes TAKE Memor ia 0.4 MG SUBL 8-24 DIRECTED l 00:00: AND Yunior 00 NEEDED FOR CHEST PAIN ASPIRIN EC Yes i po qd Nadeem bambi 81 MG TBEC 8-24 l 00:00: [place] NAPROSYN No TAKE 1 Memoria 375 MG TABS 8-24 TABLET BY l 00:00: MOUTH [place] 00 TWICE DAILY NEEDED ASPIRIN EC Yes i po qd Nadeem bambi 81 MG TBEC 8-24 l 00:00: [place] LISINOPRIL- No ONE PO BID Memoria HYDROCHLORO 8-14 l THIAZIDE 00:00: Y[place] 20-25 MG 00 TABS LISINOPRIL- No ONE PO BID Memoria HYDROCHLORO 8-14 l THIAZIDE 00:00: [place] 20-25 MG 00 TABS ZOCOR 40 MG Yes one po qhs Memoria TABS 7-03 l 00:00: [place] Olmesartan Olmesartan Yes Mike TAKE [address] [facility] Medoxomil Medoxomil Joya TABLET BY [facility] - MOUTH Memoria EVERY DAY l Outpati ent Clinics Vital Signs Vital Name Observation Time Observation Value Comments Source Weight 2019-05-24 19:15:00 [facility] [place] Height 2019-05-24 19:15:00 [facility] [place] Diastolic (mm Hg) 2019-05-24 19:15:00 Mem orial Yun[facility] Systolic (mm Hg) 2019-05-24 19:15:00 Nadeem rial [place] Weight 2014-11-22 20:11:11 [facility] [place] Systolic (mm Hg) 2014-11-22 20:11:11 Nadeem rial [place] Diastolic (mm Hg) 2014-11-22 20:11:11 Mem orial [place] Heart Rate 2014-11-22 20:11:11 [facility] [place] Weight 2014-05-24 20:07:31 [facility] [place] Systolic (mm Hg) 2014-05-24 20:07:31 Nadeem rial [place] Diastolic (mm Hg) 2014-05-24 20:07:31 Mem orial [place] Heart Rate 2014-05-24 20:07:31 [facility] [place] Weight 2013-11-09 19:23:21 [facility] [place] Systolic (mm Hg) 2013-11-09 19:23:21 Nadeem rial [place] Diastolic (mm Hg) 2013-11-09 19:23:21 Mem orial [place] Heart Rate 2013-11-09 19:23:21 [facility] [place] Weight 2013-05-11 19:51:50 [facility] [place] Systolic (mm Hg) 2013-05-11 19:51:50 Nadeem rial [place] Diastolic (mm Hg) 2013-05-11 19:51:50 Mem orial [place] Heart Rate 2013-05-11 19:51:50 [facility] [place] Weight 2012-10-18 21:02:00 [facility] [place] Systolic (mm Hg) 2012-10-18 21:02:00 Nadeem rial [place] Diastolic (mm Hg) 2012-10-18 21:02:00 Mem orial [place] Heart Rate 2012-10-18 21:02:00 [facility] [place] Weight 2012-04-09 13:43:01 [facility] [place] Systolic (mm Hg) 2012-04-09 13:43:01 Nadeem rial [place] Diastolic (mm Hg) 2012-04-09 13:43:01 Mem orial [place] Heart Rate 2012-04-09 13:43:01 [facility] [place] Weight 2011-04-11 15:41:18 [facility] [place] Systolic (mm Hg) 2011-04-11 15:41:18 Nadeem rial [place] Diastolic (mm Hg) 2011-04-11 15:41:18 Mem orial [place] Heart Rate 2011-04-11 15:41:18 [facility] [place] Weight 2010-10-10 16:41:18 [facility] [place] Height 2010-10-10 16:41:18 [facility] [place] Systolic (mm Hg) 2010-10-10 16:41:18 Nadeem rial Y[place] Diastolic (mm Hg) 2010-10-10 16:41:18 Mem orial [place] Heart Rate 2010-10-10 16:41:18 [facility] [place] Weight 2010-04-03 15:41:18 [facility] [place] Systolic (mm Hg) 2010-04-03 15:41:18 Nadeem rial Y[place] Diastolic (mm Hg) 2010-04-03 15:41:18 Mem orial [place] Heart Rate 2010-04-03 15:41:18 [facility] [place] Procedures Procedure Date / Time Performed Performing Clinician [facility] e smoking/tobacco 2013-11-09 19:23:21 [facility] vallejo cessation, patient education and counseling Plan of Care Planned Activity Planned Date Details Comments Source Future Scheduled 2020-03-17 INFLUENZA VACCINE [place] [facility] 00:00:00 [code = INFLUENZA VACCINE] Future Scheduled 2000 65+ PNEUMOCOCCAL [facility] 00:00:00 VACCINE (1 of 1 - PPSV23) [code = 65+ PNEUMOCOCCAL VACCINE (1 of 1 - PPSV23)] Future Scheduled 1985 SHINGLES VACCINES (#1) [facility] 00:00:00 [code = SHINGLES VACCINES (#1)] Encounters Start End Encounter Admission Attending Care Care Encounter Source Date/Time Date/Time Type Type Clinicians Facility Department ID 2019-06-14 Outpatient [facility] [id number] Me moria 08:22:36 [facility] 2019-05-17 Inpatient [facility] [id number] Mem oria 06:43:00 l [facility] 2019-05-13 Outpatient [facility] [id number] Me moria 12:47:12 l [facility] 2020-04-02 2020-04-02 [facility] [id number] [facility] 14:26:00 14:26:00 t [facility] Medicine l Medicine Outpati ent Clinics 2020-02-20 2020-02-20 [facility] [id number] [facility] [address] 10:45:00 10:45:00 t [facility] Medicine l Medicine Outpati ent Clinics 2019-12-09 2019-12-09 [facility] [id number] [facility] [address] 10:00:00 10:00:00 t [facility] Medicine l Medicine Outpati ent Clinics 2019-12-09 2019-12-09 [facility] [id number] 09:45:00 09:45:00 t [facility] Medicine l Medicine Outpati ent Clinics 2019-12-06 2019-12-06 [facility] [id number] [facility] [address] 14:22:00 14:22:00 t [facility] Medicine l Medicine Outpati ent Clinics 2019-10-12 2019-10-12 [facility] [id number] [address] 14:30:00 14:30:00 t [facility] Medicine l Medicine Outpati ent Clinics 2019-10-12 2019-10-12 [facility] [id number] [facility] [address] 10:00:00 10:00:00 t [facility] Medicine l Medicine Outpati ent Clinics 2019-06-29 2019-06-29 Outpatient [facility] [id number] Memoria 10:11:00 10:11:00 l [facility] 2019-05-24 2019-05-24 Outpatient Ady Arango [id number] [facility] 14:15:00 14:15:00 Kristi Berry MD al Works 2019-04-26 2019-04-26 Outpatient [facility] [id number] Memoria 06:54:00 06:54:00 l [facility] 2019-04-04 2019-04-04 Outpatient [facility] [id number] Memoria 11:24:00 11:24:00 l [facility] 2018-04-06 2018-04-06 [facility] [id number] [facility] [address] 08:00:00 08:00:00 [facility] Clinics 2018-03-15 2018-03-15 [facility] [id number] 08:30:00 08:30:00 t [facility] Results Test Description Test Time Test Comments Results Result Sourc e Comments Hematology 2013-12-23 34.06 [facility] 22:18:44 [place] Hematology 2013-12-23 11.40 [facility] 22:18:44 [place] Hematology 2013-12-23 205 [facility] 22:18:44 [facility] Chemistry 2013-12-18 141 [facility] 11:18:00 Yunior Chemistry 2013-12-18 48 [facility] 11:18:00 [facility] Chemistry 2013-12-18 177 [facility] 11:18:00 [place] Chemistry 2013-12-18 58 MG/DL (CALC) Memorial 11:18:00 Y[facility]ior Hematology 2013-12-02 36.28 Memorial 14:37:02 [facility] Hematology 2013-12-02 12.11 [facility] 14:37:02 [place] Hematology 2013-12-02 196 [facility] 14:37:02 [place] Chemistry 2013-11-09 135 [facility] 22:20:44 [place] Chemistry 2013-11-09 4.0 Memorial 22:20:44 [facility] Chemistry 2013-11-09 22 Memorial 22:20:44 [facility] Chemistry 2013-11-09 1.04 [facility] 22:20:44 [place] Chemistry 2013-11-09 9.9 Memorial 22:20:44 Y[facility] Chemistry 2013-11-09 17 [facility] 22:20:44 [facility] Chemistry 2013-11-09 17 Memorial 22:20:44 [place] Chemistry 2013-02-23 32 [facility] 07:48:00 [place] Chemistry 2013-02-23 2.25 [facility] 07:48:00 [place] Chemistry 2013-02-23 14 (calc) [facility] 07:48:00 [place] Chemistry 2013-02-23 135 [facility] 07:48:00 [place] Chemistry 2013-02-23 4.7 Memorial 07:48:00 [place] Chemistry 2013-02-23 9.3 [facility] 07:48:00 [place] Chemistry 2012-12-10 138 [facility] 16:16:06 Y[facility] Chemistry 2012-12-10 4.2 Memorial 16:16:06 [facility] Chemistry 2012-12-10 6.9 Memorial 16:16:06 [facility] Chemistry 2012-12-10 27 [facility] 16:16:06 [place] Chemistry 2012-12-10 1.04 [facility] 16:16:06 [place] Chemistry 2012-12-10 16 [facility] 16:16:06 [place] Chemistry 2012-12-10 16 [facility] 16:16:06 [place] Chemistry 2012-12-10 98 [facility] 16:16:06 [facility] Hematology 2012-12-10 36.0 Memorial 16:16:06 [facility] Hematology 2012-12-10 12.1 [facility] 16:16:06 [facility] Hematology 2012-12-10 238 [facility] 16:16:06 [place] Chemistry 2012-11-08 130 [facility] 06:54:00 Y[facility] Chemistry 2012-11-08 39 [facility] 06:54:00 [place] Chemistry 2012-11-08 126 [facility] 06:54:00 [place] Chemistry 2012-11-08 66 MG/DL (CALC) Memorial 06:54:00 [place] Chemistry 2012-11-08 19 [facility] 06:54:00 [place] Chemistry 2012-11-08 0.93 [facility] 06:54:00 [place] Chemistry 2012-11-08 NOT APPLICABLE Memorial 06:54:00 (calc) Yunior Chemistry 2012-11-08 138 [facility] 06:54:00 Y[facility] Chemistry 2012-11-08 4.7 [facility] 06:54:00 [place] Chemistry 2012-11-08 10.1 [facility] 06:54:00 [place] Chemistry 2012-11-08 4.3 Memorial 06:54:00 Yunior Chemistry 2012-11-08 110 [facility] 06:54:00 [place] Chemistry 2012-11-08 14 Memorial 06:54:00 [place] Chemistry 2012-11-08 16 [facility] 06:54:00 [place] Chemistry 2012-11-08 7.1 % OF TOTAL Memorial 06:54:00 HGB [place] Chemistry 2012-04-10 21 [facility] 11:51:00 Yunior Chemistry 2012-04-10 16 [facility] 10:19:00 Y[facility] Chemistry 2012-04-10 0.80 [facility] 10:19:00 [place] Chemistry 2012-04-10 10:19:00 Test Item Value Reference Range Interpretation Comme nts BUN/CREAT (test code = BUN/CREAT) 20 1 - [facility] ZwkksvkCjmzsgezb0444-01-37 10:19:90515Ftdjjezp [facility] 2012-04-10 10:19:004.2[facility] UkzpakhZikxddtpf9724-78-31 10:19:009.7[facility]orial AtjfceoQylsjoqni0073-95-00 10:19:004.2[facility] LwnffmhKdjrjqgry0471-12-33 10:19:85509Zhmohkfk TboxwgmMwjhiaxzz6819-10-29 10:19:0019[facility] Y[facility]ior Grapnjycg5565-21-31 10:19:99797Edpojbgx JefjljiDhdbkmado7857-57-94 10:19:17701 Memorial HsdatriGuvukkojk5574-89-67 10:19:0044[facility] 2012-04-10 10:19:86666.0[facility] ClqtouuSnfexftwy7479-55-85 10:19:0068[facility]orial XipwxxwPbcvebdjg9706-39-47 15:41:186.3[facility]orial VuebprkEwypmhetb5589-27-27 16:41:70680Awutdrbi BzypjtoJkhvmdbub6363-08-44 16:41:1850[facility] Grgvupqud1146-15-65 16:41:1898[facility] RybzreiRqmvkqofp5775-45-56 16:41:53448 Memorial JloupgvRulfphngk4481-60-07 16:41:184.5[facility]ann[facility]istry 2010-10-10 16:41:1819[facility] LylvnxpJjhpcygxt6444-03-29 16:41:1815[facility] FwljjprAkfiveqci7489-49-85 16:41:94111Ainzjyjt HfwbnyzImppzgwby2531-47-15 16:41:1815[facility] SmnldkkHbibxxqqb3627-96-21 16:41:180.92[facility] Gsxddxoyz3763-37-17 16:41:184.4[facility] ZuqnhwdEtekuykpe3777-67-12 16:41:186.6 Memorial JipeicuJoxhallja4887-30-47 16:41:1810.3[facility] 2010-04-04 15:41:28499Taxseeyu NmrytpxVwiuziotp9828-50-79 15:41:1848[facility] YpcsfphLrkbtczne1168-32-81 15:41:48728Brcmwycc MugbcynJjkjfhchr8599-78-95 15:41:31784Tcbawxbh WxhkbufVicmktttd8968-01-20 15:41:186.6[facility] [place] Tbcbykegw8549-81-98 15:41:1816[facility] JlvzracUvcrxyxnt2894-01-63 15:41:1813 Memorial PtvuyvhPfeepwjfq1274-64-78 15:41:35144Ykedzwup [facility] 2010-04-04 15:41:1820[facility] OevrgcqMojtdylug5384-46-72 15:41:180.91[facility]orial QzncuczRbmjvtavj6433-82-72 15:41:185.0[facility] AdwnentTmqfblsqo2875-83-95 15:41:189.7[facility] PvmviirWobwhcrjs2782-90-48 15:41:71010Ovankgqq Yunior Pnghinvut2028-24-83 15:41:1854[facility] UccrlakIdegrqzve5266-55-15 15:41:1898 Memorial CrfxbfqTojdpzjtl9401-57-34 15:41:55887Cqxdrqni [facility] 2008-06-06 15:41:184.0[facility] YyjzhrlDlzbffaaf2341-42-62 15:41:1816[facility] BhfvjfrNuipyxfuo9556-17-18 15:41:1817[facility] DhpgwgtNohkregoq5975-67-63 15:41:22695Mcaydaca QivrfanAqcxxznjm3620-22-77 15:41:1814[facility] Y[facility]ior Vfeqnvrmf2524-40-71 15:41:180.94[facility]orial SqfevpfFppjoobjs2321-35-97 15:41:184.0 Memorial YelsehzTrhrocmsx4112-17-80 15:41:189.8[facility] Yunior
--- OUTSIDE RECORDS SUMMARY | 2020-05-14 09:34 | XMS REPORT ---
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
[2020-05-14 10:25] VITALS: BP 208/98; TEMP 97; O2SAT 93; BMI 24.7
[2020-05-14 10:25] LABS: Absolute Lymphocytes (CBC) 1.4 K/uL (0.7-4.9); Basophils % 1.3 % (0-1.3); Hematocrit 34.2 % (36.0-45.0); Lymphocytes % 16.8 % (15.3-44.8); MPV 10.7 fL (7.6-11.3); RBC Red Blood Cell Count 4.42 M/uL (3.86-4.86)
[2020-05-14] MEDS ORDERED: HEPARIN 500 UNIT/5 ML SYR IV ONE (10:28)
[2020-05-14 10:51] LABS: Albumin 3.1 g/dL (3.4-5.0); Bilirubin Total 0.3 mg/dL (0.2-1.0); Ferritin 5.3 ng/mL (8-388); Potassium 3.9 mmol/L (3.5-5.1); Protein, Total 6.4 g/dL (6.4-8.2)
== END 2020-05-14 10:45 | disposition home or self-care (01) ==
LOC: DS 09:30
PROVIDERS: ATTEND Family Medicine
DX: C50.919 Malignant neoplasm of unspecified site of unspecified female breast (principal)
CPT/HCPCS: 85025; 36415; 80061; 83036; 82728; 83540; 80053; 84466; 96523; J1642

== ENCOUNTER 2020-06-22 10:14 | Day surgery (SDC) | payer OTHER ==
--- OUTSIDE RECORDS SUMMARY | 2020-06-22 10:36 | XMS REPORT | Clinical Summary ---
:1935 Author Organization [facility] Address [address] [place] [address] Care Team Providers Name Role Phone Asked, [...] needed. Active Problems No known active problems Surgical History Surgery Date Site/Laterality Comments TONSILLECTOMY GALLBLADDER SURGERY APPENDECTOMY HYSTERECTOMY MOUTH SURGERY BLADDER SUSPENSION Medical History Medical History Date Comments High cholesterol Diabetes mellitus (HCC) Hypertension Social History Tobacco Use Types Packs/Day Years Used Date Never Smoker Alcohol Use Drinks/Week oz/Week Comments No Sex Assigned at Date Recorded Not on file Last Filed Vital Signs Not on file Plan of Treatment Health Maintenance Due Date Last Done Comments SHINGLES VACCINES (#1) 1985 65+ PNEUMOCOCCAL VACCINE (1 of 1 - PPSV23) 2000 INFLUENZA VACCINE 03/17/2020 Results Not on fileafter 06/22/2019 Insurance Payer Benefit Plan / Subscriber ID Effective Phone Address T ype Group Dates MEDICARE MEDICARE PART [id number] 2000-Pres [place] X Medicare A AND B ent [facility] [id number] 2016-Pres Erik shepherd [place] ent Advance Directives For more information, please contact: [phone] Type Date 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
--- OUTSIDE RECORDS SUMMARY | 2020-06-22 10:37 | XMS REPORT | Continuity of Care Document ---
:1935 Author Organization [facility] [employer] Care Team Providers Name Role Phone Loccie Unavailable Un available Problems Problem Status Onset Classification Date Comments Sourc e Date Reported POSTMASTECTOMY Active 11/23/19 Condition 11/22/2014 [facility] edical LYMPHEDEMA 15 Group SYNDROME PERIPHERAL Active 11/10/19 Condition 11/22/2014 Medic al NEUROPATHY 14 Group BLADDER CANCER Active 11/10/19 Condition 11/22/2014 [facility] edical 14 Group HEMATURIA, HX OF Active 05/11/20 Condition 11/22/2014 Medical 13 Group RENAL Active 05/11/20 Condition 11/22/2014 Medica l INSUFFICIENCY 13 Group CAD Active 05/11/20 Condition 11/22/2014 Medica l 13 Group BREAST CANCER Active 11/10/19 Condition 11/22/2014 [facility] dical 13 Group HYPERTENSION Active Condition 11/22/2014 Med ical Group HYPERLIPIDEMIA Active Condition 11/22/2014 [facility] edical Group C O P D [...] CR TAKE ONE Active MH 240 MG [id number] TABLET ONCE 012 Med ical A DAY [...] For Provider Date Date Visit [facility] [phone] Lázaro Sargent, 05/24 05/24 [facility] Visit 460 [facility] [phone] Lázaro Sargent, 11/22 11/22 [facility] Visit 010 [facility] Procedures Procedure Code Date Perfomer Comments [...]
--- OUTSIDE RECORDS SUMMARY | 2020-06-22 10:38 | XMS REPORT ---
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
--- OUTSIDE RECORDS SUMMARY | 2020-06-22 10:38 | XMS REPORT | Continuity of Care Document ---
:1935 Author Organization [facility] t Address [address] [place] [address] Care Team Providers Name Role Phone Asked, [...] BLADDER Condition Active 2014-11-22 Me moria CANCER 11-09 15:11:11 l BLADDER 00:00: [place] [facility]ER 00 Active 11/09/2013 [facility] HEMATURIA, Condition Active 2014-11-22 [facility] HX OF 05-11 15:11:11 l 00:00: [place] HEMATURIA, 00 HX OF Active 05/11/2013 [facility] RENAL Condition Active 2014-11-22 Mem oria INSUFFICIE 05-11 15:11:11 l NCY RENAL 00:00: [place] INSUFFICIE 00 NCY Active 05/11/2013 [facility] CAD Condition Active 2014-11-22 Mem oria 9-25 15:11:11 l CAD 00:00: [place] 00 Active 05/11/2013 [facility] BREAST Condition Active 2014-11-22 Mem oria CANCER 3-26 15:11:11 l BREAST 00:00: [place] CANCER 00 Active 11/09/2012 [facility] HYPERTENSI Condition Active 2014-11-22 Memoria ON 15:11:11 l [place] HYPERTENSI ON Active Condition 11/22/2014 [facility] Group HYPERLIPID Condition Active 2014-11-22 Mem[facility] EMIA 15:11:11 l [place] HYPERLIPID EMIA Active Condition 11/22/2014 Medical Group C O P D Condition Active 2014-11-22 Me moria 15:11:11 l C O P D Y[facility] Active Condition 11/22/2014 [facility] DIABETES, Condition Active 2014-11-22 Memoria TYPE 2 15:11:11 l [place] DIABETES, TYPE 2 Active Condition 11/22/2014 [facility] VITAMIN D Condition Active 2014-11-22 Memoria DEFICIENCY 15:11:11 l VITAMIN [place] D DEFICIENCY Active Condition 11/22/2014 [facility] LONG-TERM Condition Active 2014-11-22 Memoria (CURRENT) 15:11:11 l USE OF [place] OTHER LONG-TERM MEDICATION (CURRENT) S USE OF [...] Source Name Type Date Date Clinician N.K.Vicente.A. N.K.D.A. Active Info Not 2018-08 Nadeem bambi Available 0-08 l 00:00: Yunior 00 Social History Social Habit Start Date Stop Date Quantity Comments Source Sex Assigned At [facility] ethodist Alcohol intake 2016-04-14 2016-04-14 Current [facility] thodist 00:00:00 00:00:00 non-drinker of alcohol (finding) Smoking Status Start Date Stop Date Source Never smoker [facility] Noniis antelmo Medications Ordered Filled Start Stop Current Ordering Indication Dosage Frequency Signature Comments Components Source Medication Medication Date Date Medication? Clinician (SIG) Name Name Losartan Losartan Yes Mike [address] [facility] Potassium Potassium 04-03 Toan Sotelo s - 00:00: [facility] 00 l Outpat[facility] ent Clinics Plavix 2018-08 Yes Ady 1 tablet Nadeem bambi 08-18 Macris l 02:00: Yunior 27 ANASTROZOLE Yes Take by Rachel ston ORAL 8- mouth. Methodi 09:34: st 26 diazepam 2015- Yes 5mg Q6H Take 5 mg [place] (VALIUM) 5 -22 by mouth Metho di MG tablet 09:34: every 6 st 26 (six) hours as needed for anxiety. lisinopril Yes 20mg QD Take 20 mg [place] (PRINIVIL,Z 8- by mouth Meth oscar ESTRIL) 20 09:34: daily. st MG tablet 26 metFORMIN Yes 500mg QD Take 500 Rachel ston XR 8-22 mg by Methodi (GLUCOPHATE 09:34: mouth st -XR) 500 MG 26 daily with 24 hr breakfast. tablet simvastatin Yes 40mg QD Take 40 mg [facility] (ZOCOR) 40 - by mouth Metho di MG tablet 09:34: nightly. st 26 gabapentin Yes 300mg [id number] Take 300 [facility] (NEURONTIN) 8- [id number] mg by Herbert bloomodi 300 MG 09:34: 3D mouth 3 st capsule 26 (three) times a day. traMADol 2015-0 Yes 50mg Q6H Take 50 mg Rachel ston (ULTRAM) 50 8- by mouth Meth oscar mg tablet 09:34: every 6 st 26 (six) hours as needed for moderate pain. diltiazem 2015-0 Yes 240mg QD Take 240 Rachel ston CD 8-22 mg by Methodi (CardIZEM 09:34: mouth st CD) 240 MG 26 daily. 24 hr capsule LORATADINE Yes Take by [place] (CLARITIN 8- mouth. Methodi ORAL) 09:34: st 26 ERGOCALCIFE 2015-0 Yes Take by Rachel ston ROL, 8 mouth. Methodi VITAMIN D2, 09:34: st (VITAMIN D2 26 ORAL) IBUPROFEN 2015- Yes Take by Abigailt on (ADVIL 04-07 mouth. Methodi ORAL) 09:34: st 26 aspirin 2015- Yes 81mg QD Take 81 mg [place] (ECOTRIN) 8 by mouth Method i 81 MG 09:34: daily. st enteric 26 coated tablet calcitonin, 2015- Yes INHALE 1 Baldomero coombs salmon, 04-02 (ONE) Methodi (MIACALCIN) 00:00: SOLUTION, s t 200 00 NASAL, unit/actuat DAILY. ion nasal spray tramadol-ac 2015- Yes 1{tbl} Q.[id number] Take 1 [place] etaminophen 04-02 [id number] tablet by Kb (ULTRACET) 00:00: 3D mouth 3 st 37.5-325 mg 00 (three) per tablet times a day as needed. anastrozole Yes 1mg QD Take 1 mg [place] (ARIMIDEX) 03-17 by mouth Metho di 1 mg chemo 00:00: once st tablet 00 daily. naproxen 2015- Yes 500mg Q.5D Take 500 [place] (NAPROSYN) 7-27 mg by Methodi 500 MG 00:00: mouth 2 st tablet 00 (two) times a day as needed. simvastatin Yes TAKE 1 [place] (ZOCOR) 40 6-30 TABLET BY Meth oscar MG tablet 00:00: MOUTH AT st 00 BEDTIME. lisinopril- Yes 1{tbl} Q.5D Take 1 Baldomero coombs hydrochloro 6-21 tablet by Met jensen thiazide 00:00: mouth 2 st (PRINZIDE,Z 00 [...] bambi HYDROCHLORO 3-03 TWICE l THIAZIDE 00:00: [place] 20-25 MG 00 TABS METFORMIN Yes ONE PO bid Me moria HCL 500 MG 3-03 l TABS 00:00: PHENAZOPYRI No one po tid Memoria DINE HCL 9-11 l 100 MG TABS 00:00: Reza n VITAMIN D3 Yes three po Mem oria [...] l MG 00:00: ONCE A DAY Yunior [id number] 00 VALIUM 5 MG Yes TAKE ONE Me moria TABS 8-24 TABLET l 00:00: DAILY NEEDED NITROSTAT Yes TAKE Memor ia 0.4 MG SUBL 8-24 DIRECTED l 00:00: AND NEEDED FOR CHEST PAIN ASPIRIN EC Yes i po qd Nadeem bambi 81 MG TBEC 8-24 l 00:00: [place] 00 NAPROSYN No TAKE 1 Memoria 375 MG TABS 8-24 TABLET BY l 00:00: MOUTH Yun[place] 00 TWICE DAILY NEEDED ASPIRIN EC Yes i po qd Nadeem bambi 81 MG TBEC 8-24 l 00:00: [place] 00 LISINOPRIL- No ONE PO BID Memoria HYDROCHLORO 8-14 l THIAZIDE 00:00: [place] 20-25 MG 00 TABS LISINOPRIL- No ONE PO BID Memoria HYDROCHLORO 8-14 l THIAZIDE 00:00: [place] 20-25 MG 00 TABS ZOCOR 40 MG Yes one po qhs Memoria TABS 7-03 l 00:00: [place] 00 Olmesartan Olmesartan Yes Mike TAKE [address] [facility] Medoxomil Medoxomil Joya TABLET BY [facility] DAY l Outpati ent Clinics Vital Signs Vital Name Observation Time Observation Value Comments Source Weight 2019-05-24 19:15:00 [facility] Height 2019-05-24 19:15:00 [facility] [place] Diastolic (mm Hg) 2019-05-24 19:15:00 Mem orial [place] Systolic (mm Hg) 2019-05-24 19:15:00 Nadeem bambil [place] Weight 2014-11-22 20:11:11 [facility] [place] Systolic (mm Hg) 2014-11-22 20:11:11 Nadeem rial [place] Diastolic (mm Hg) 2014-11-22 20:11:11 Mem orial [place] Heart Rate 2014-11-22 20:11:11 [facility] [place] Weight 2014-05-24 20:07:31 [facility] [place] Systolic (mm Hg) 2014-05-24 20:07:31 Nadeem rial [place] Diastolic (mm Hg) 2014-05-24 20:07:31 Mem orial [place] Heart Rate 2014-05-24 20:07:31 [facility] [place] Weight 2013-11-09 19:23:21 [facility] [place] Systolic (mm Hg) 2013-11-09 19:23:21 Nadeem rial [place] Diastolic (mm Hg) 2013-11-09 19:23:21 Mem orial [place] Heart Rate 2013-11-09 19:23:21 [facility] [place] Weight 2013-05-11 19:51:50 [facility] [place] Systolic (mm Hg) 2013-05-11 19:51:50 Nadeem rial [place] Diastolic (mm Hg) 2013-05-11 19:51:50 Mem orial [place] Heart Rate 2013-05-11 19:51:50 [facility] Weight 2012-10-18 21:02:00 [facility] [place] Systolic (mm Hg) 2012-10-18 21:02:00 Nadeem rial [place] Diastolic (mm Hg) 2012-10-18 21:02:00 Mem orial [place] Heart Rate 2012-10-18 21:02:00 [facility] [place] Weight 2012-04-09 13:43:01 [facility] [place] Systolic (mm Hg) 2012-04-09 13:43:01 Nadeem rial [place] Diastolic (mm Hg) 2012-04-09 13:43:01 Mem orial [place] Heart Rate 2012-04-09 13:43:01 [facility] [place] Weight 2011-04-11 15:41:18 [facility] [place] Systolic (mm Hg) 2011-04-11 15:41:18 Nadeem rial [place] Diastolic (mm Hg) 2011-04-11 15:41:18 Mem orial [place] Heart Rate 2011-04-11 15:41:18 [facility] [place] Weight 2010-10-10 16:41:18 [facility] [place] Height 2010-10-10 16:41:18 [facility] [place] Systolic (mm Hg) 2010-10-10 16:41:18 Nadeem rial [place] Diastolic (mm Hg) 2010-10-10 16:41:18 Mem orial [place] Heart Rate 2010-10-10 16:41:18 [facility] [place] Weight 2010-04-03 15:41:18 [facility] [place] Systolic (mm Hg) 2010-04-03 15:41:18 Nadeem rial [place] Diastolic (mm Hg) 2010-04-03 15:41:18 Mem orial [place] Heart Rate 2010-04-03 15:41:18 [facility] [place] Procedures Procedure Date / Time Performed Performing Clinician [facility] e smoking/tobacco 2013-11-09 19:23:21 [facility] Her vallejo cessation, patient education and counseling Plan of Care Planned Activity Planned Date Details Comments Source Future Scheduled 2020-03-17 INFLUENZA VACCINE [place] [facility] 00:00:00 [code = INFLUENZA VACCINE] Future Scheduled 2000 65+ PNEUMOCOCCAL [facility] 00:00:00 VACCINE (1 of 1 - PPSV23) [code = 65+ PNEUMOCOCCAL VACCINE (1 of 1 - PPSV23)] Future Scheduled 1985 SHINGLES VACCINES (#1) H [facility] 00:00:00 [code = SHINGLES VACCINES (#1)] Encounters Start End Encounter Admission Attending Care Care Encounter Source Date/Time Date/Time Type Type Clinicians Facility Department ID 2019-06-14 Outpatient [facility] [id number] Me moria 08:22:36 l [facility] 2019-05-17 Inpatient [facility] 7540 Mem oria 06:43:00 l [facility] 2019-05-13 Outpatient [facility] [id number] Me moria 12:47:12 l [facility] 2020-05-21 2020-05-21 Outpatient [facility] [id number] [facility] 2020-04-02 2020-04-02 [facility] [id number] [facility] 14:26:00 14:26:00 t Felicity [employer] - Social Strategy 1 [facility] l Medicine Outpati ent Clinics 2020-02-20 2020-02-20 [facility] [id number] [address] 10:45:00 10:45:00 t Felicity [employer] s - Drive [facility] l Medicine Outpati ent Clinics 2019-12-09 2019-12-09 [facility] [id number] [address] 10:00:00 10:00:00 t Felicity [employer] s - Drive [facility] l Medicine Outpati ent Clinics 2019-12-09 2019-12-09 [facility] [id number] [address] 09:45:00 09:45:00 t Felicity [employer] s - Drive [facility] l Medicine Outpati ent Clinics 2019-12-06 2019-12-06 [facility] [id number] [address] 14:22:00 14:22:00 t Felicity [employer] s - Drive [facility] Family [facility] l Medicine Outpati ent Clinics 2019-10-12 2019-10-12 [facility] [id number] 14:30:00 14:30:00 t [employer] [facility] ent [facility] 2019-10-12 2019-10-12 [facility] [id number] 10:00:00 10:00:00 t [employer] [facility] ent [facility] 2019-06-29 2019-06-29 Outpatient [facility] 7542 Memoria 10:11:00 10:11:00 l [facility] 2019-05-24 2019-05-24 [facility]patient Ad[id number] 14[facility]15:00 Kristi Berry MD al Works 2019-04-26 2019-04-26 Outpatient [facility] 7511 Memoria 06:54:00 06:54:00 l [facility] 2019-04-04 2019-04-04 Outpatient [facility] 7510 Memoria 11:24:00 11:24:00 l [place] [facility] 2018-04-06 2018-04-06 [facility] [id number] [address] 08:00:00 08:00:00 [facility] 2018-03-15 2018-03-15 [facility] [id number] 08:30:00 08:30:00 [facility] Results Test Description Test Time Test Comments Results Result Sour e Comments Hematology 2013-12-23 34.06 [facility] 22:18:44 Y[facility] Hematology 2013-12-23 11.40 [facility] 22:18:44 [facility] Hematology 2013-12-23 205 [facility] 22:18:44 [place] Chemistry 2013-12-18 141 [facility] 11:18:00 [place] Chemistry 2013-12-18 48 [facility] 11:18:00 [facility] Chemistry 2013-12-18 177 [facility] 11:18:00 [facility] Chemistry 2013-12-18 58 MG/DL (CALC) [facility] 11:18:00 Y[facility] Hematology 2013-12-02 36.28 [facility] 14:37:02 [place] Hematology 2013-12-02 12.11 [facility] 14:37:02 [place] Hematology 2013-12-02 196 [facility] 14:37:02 [place] Chemistry 2013-11-09 135 [facility] 22:20:44 [place] Chemistry 2013-11-09 4.0 [facility] 22:20:44 [place] Chemistry 2013-11-09 22 [facility] 22:20:44 [place] Chemistry 2013-11-09 1.04 [facility] 22:20:44 [place] Chemistry 2013-11-09 9.9 [facility] 22:20:44 [place] Chemistry 2013-11-09 17 [facility] 22:20:44 Yun[facility] Chemistry 2013-11-09 17 [facility] 22:20:44 [place] Chemistry 2013-02-23 32 [facility] 07:48:00 [place] Chemistry 2013-02-23 2.25 [facility] 07:48:00 [facility] Chemistry 2013-02-23 14 (calc) [facility] 07:48:00 [facility] Chemistry 2013-02-23 135 [facility] 07:48:00 [place] Chemistry 2013-02-23 4.7 [facility] 07:48:00 Y[facility] Chemistry 2013-02-23 9.3 [facility] 07:48:00 [place] Chemistry 2012-12-10 138 [facility] 16:16:06 [place] Chemistry 2012-12-10 4.2 [facility] 16:16:06 [place] Chemistry 2012-12-10 6.9 [facility] 16:16:06 [place] Chemistry 2012-12-10 27 [facility] 16:16:06 [place] Chemistry 2012-12-10 1.04 [facility] 16:16:06 Y[facility] Chemistry 2012-12-10 16 [facility] 16:16:06 [facility] Chemistry 2012-12-10 16 [facility] 16:16:06 [place] Chemistry 2012-12-10 98 [facility] 16:16:06 [place] Hematology 2012-12-10 36.0 [facility] 16:16:06 [place] Hematology 2012-12-10 12.1 [facility] 16:16:06 Y[facility] Hematology 2012-12-10 238 [facility] 16:16:06 [place] Chemistry 2012-11-08 130 [facility] 06:54:00 [facility] Chemistry 2012-11-08 39 [facility] 06:54:00 [place] Chemistry 2012-11-08 126 [facility] 06:54:00 Y[facility] Chemistry 2012-11-08 66 MG/DL (CALC) [facility] 06:54:00 [facility] Chemistry 2012-11-08 19 [facility] 06:54:00 [place] Chemistry 2012-11-08 0.93 [facility] 06:54:00 [place] Chemistry 2012-11-08 NOT APPLICABLE [facility] 06:54:00 (calc) Yunior Chemistry 2012-11-08 138 [facility] 06:54:00 [place] Chemistry 2012-11-08 4.7 [facility] 06:54:00 [place] Chemistry 2012-11-08 10.1 [facility] 06:54:00 [place] Chemistry 2012-11-08 4.3 [facility] 06:54:00 [place] Chemistry 2012-11-08 110 [facility] 06:54:00 [place] Chemistry 2012-11-08 14 [facility] 06:54:00 [place] Chemistry 2012-11-08 16 [facility] 06:54:00 [place] Chemistry 2012-11-08 7.1 % OF TOTAL Memorial 06:54:00 HGB [place] Chemistry 2012-04-10 21 [facility] 11:51:00 Y[facility] Chemistry 2012-04-10 16 [facility] 10:19:00 [facility] Chemistry 2012-04-10 0.80 [facility] 10:19:00 [facility] Chemistry 2012-04-10 10:19:00 Test Item Value Reference Range Interpretation Comme nts BUN/CREAT (test code = BUN/CREAT) 20 1 11- [facility] UfwptgtZvxepqril0649-68-39 10:19:26385Nrpxmjuw [facility] 2012-04-10 10:19:004.2[facility] KitgggbRmoxbarax4211-60-95 10:19:009.7[facility] GyyyatyUmedwsopp5498-24-78 10:19:004.2[facility] MmlscntWuxicnwbl0730-05-88 10:19:66798Gskloxsf LflemarFtcuvnxbk2212-85-79 10:19:0019[facility] Y[facility]ior Sxjfjnghx7460-94-62 10:19:40684Bvbyodys AbkvbjpTzuqdqate3088-44-14 10:19:12286 [facility] TzwqpfdDsjzkqmcl5345-50-39 10:19:0044[facility] 2012-04-10 10:19:34169.0[facility] EaqoszlWhdwamkat6666-73-19 10:19:0068[facility] NbmtyyuLuywsqvho7978-10-29 15:41:186.3[facility] SetslfyNnhhtuprs7855-54-67 16:41:43362Ycflumyn VstbphgSftyjunbv7976-09-75 16:41:1850[facility] Adqagmjqs0574-59-57 16:41:1898[facility] VxcsvhiRehbcrdpy0416-06-43 16:41:77629 [facility] BknaplbTkjobnplc8943-22-34 16:41:184.5[facility] 2010-10-10 16:41:1819[facility] CtcsjuwRthryskhx7113-64-67 16:41:1815[facility] SdmirdzPimjwahar6521-81-75 16:41:43787Pdwfbkmk VbnftphSpfaqeodt6901-05-66 16:41:1815[facility] HfkdrexFdgipfbzp0009-86-04 16:41:180.92[facility] Dhtcbndtd3144-86-17 16:41:184.4[facility] LbzlojfKimohvsrm4802-32-56 16:41:186.6 [facility] CqkcwneBwpedfiqp6088-10-13 16:41:1810.3[facility] 2010-04-04 15:41:48464Zyqpgzgz TfdmubjWyuenxuhr1876-36-90 15:41:1848[facility] GysplcyOwuovsunn3782-05-56 15:41:14983Eokpjuqu FsasubnLyanjngaa8114-43-50 15:41:03829Nhgyxdup JppymxkUvmvwcymk7588-18-39 15:41:186.6[facility] [place] Dyxjofsjn6487-91-78 15:41:1816[facility] AdaywemEiuylbnhp9309-58-78 15:41:1813 [facility] TcrmpwtBawsinmvp6847-04-69 15:41:75316Dqrekwal [facility] 2010-04-04 15:41:1820[facility] FwtkcvuNycqoubyu3930-60-09 15:41:180.91[facility] TvktsrvKmawvevql7329-27-89 15:41:185.0[facility] CuvwjgyHgytidoew1278-51-30 15:41:189.7[facility] QiaqjlxYhrnpuzkh5527-28-62 15:41:09756Erebnbvi [facility] Moyzzczzd5503-82-21 15:41:1854[facility] AtpdlobXdeuudqpd1425-06-41 15:41:1898 [facility] JnmajerSyaougbnn0571-41-63 15:41:43823Zizkfpbj [facility] 2008-06-06 15:41:184.0[facility] JjqbyztHrhdyzess9434-46-11 15:41:1816[facility] VgasirbWyqzlxuzr2597-14-05 15:41:1817[facility] XjikdgcLovdrfckc3831-50-53 15:41:01948Ulniugeu WmnpxicKljziuuix3167-30-95 15:41:1814[facility] [place] Hxfqldres1658-75-11 15:41:180.94[facility] EkifnnmFjlpgpily5837-82-98 15:41:184.0 [facility] JzesjwoLvuvlomti1427-73-45 15:41:189.8[facility] [place]
--- OUTSIDE RECORDS SUMMARY | 2020-06-22 10:38 | XMS REPORT ---
:1935 Author Organization [facility] Address [address] [place], 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), bioprosthetic Problem Peripheral G62.9 Active 95801612 polyneuropathy Problem Type 2 diabetes E11.65 Active 09900088 mellitus with hyperglycemia, without long-term current use of insulin Problem 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 Problem Gastro-esophageal K21.9 Active 976225249 reflux disease without esophagitis Problem Primary M17.12 Active [id number] osteoarthritis of left knee Problem History of Z85.51 Active 121082539 bladder cancer Problem Acute pain of M25.562 Active 23503824 left knee Problem Mixed E78.2 Active 438557164 hyperlipidemia Problem Age-related M81.0 Active 47432824 osteoporosis without current pathological fracture Problem Chronic J44.9 Active 02546393 obstructive pulmonary disease, unspecified COPD type Problem Moderate E44.0 Active 642605151 protein-calorie malnutrition Problem Essential I10 Active 27007076 hypertension Problem Lymphedema of I89.0 Active 709742764 upper extremity Problem Hypocalcemia E83.51 Active 7467141 Problem Generalized F41.1 Active 14340988 anxiety disorder Problem Sciatica of left M54.32 Active 32698438 side Problem 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 malignant neoplasm of both breasts Problem Diabetic E11.42 Active 317102996 polyneuropathy associated with type 2 diabetes mellitus Problem Diverticulosis K57.30 Active 871812919 large intestine w/o perforation or abscess w/o bleeding Problem 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 65 ; Moderate protein-calorie malnutrition E4 4.0 ; Essential hyper tension I10 ; Age-relat ed osteoporosis wi thout current patholo gical fracture M81.0 ; Diabetic polyne uropathy associated with type 2 diabetes [facility] E11.42 ; S/p TA VR (transcatheter aortic valve replaceme nt), bioprosthetic Z 95.3 ; Coronary artery disease of [place] arter y of [place] fork heart wi th stable angina p ectoris I25.118 ; Mixed hyperlipidemia E78.2 ; Severe aortic v alve stenosis I35.0 ; Chronic obstruc tive pulmonary disea se, unspecified [employer]PER[employer] D type J44.9 ; Lymphed shruthi of upper extremity I89.0 ; Chronic kidney disease, stage 3 (modera te) N18.3 ; General ized anxiety disorde r F41.1 ; Proteinuria, unspecified typ e R80.9 ; Diverticulosi s large intestine w/o perforation or abscess w/o bleeding K5 7.30 ; Internal hemorr hoid K64.8 ; Diaphra gmatic hernia without obstruction or gangrene K44.9 ; Gastro-esophage al reflux disease without esophagitis K21 .9 ; Anemia, unspeci fied type D64.9 ; Al lergic rhinitis, unspe cified seasonality, unspecified tri gger J30.9 ; History of bilateral maste ctomy Z90.13 ; Type 2 diabetes [facility] with diabetic chroni c kidney disease E11.22 ; History of sparkle gnant neoplasm of bot h breasts Z85.3 ; History of bladder canc er Z85.51 ; Primar y osteoarthritis of left knee M17.12 ; H istory of fall Z91.81 ; History of vert ebral fracture Z87.81 ; Hypocalcemia E8 3.51 and Need for influe nza vaccination Z23 IMMUNIZATIONS Vaccine Route Administration Date Status FluAD IM Intramuscular May 21, 2020 Administered SOCIAL HISTORY Tobacco Use: Social History Observation Description Date Details (start date - stop date) Former Smoker Sex Assigned At : Social History Observation Description Sex Assigned At Unknown Alcohol Screen Question Answer Notes Did you have a drink containing alcohol in the past year? No Points 0 Interpretation Negative Tobacco Use/Smoking Question Answer Notes Are you a former smoker Additional Findings: Tobacco Non-User Current non-smoker REASON FOR REFERRAL No Information VITAL SIGNS Height 63 in May, Weight 140.0 lbs May, Temperature 97.2 degrees Fahrenheit May, BMI 24.8 kg/m2 May, Oximetry 98 % May, Respiratory Rate 18 /min May, Blood pressure systolic 182 mm Hg May, Blood pressure diastolic 86 mm Hg May, MEDICATIONS Medication SIG (Take, Route, Frequency, Start Date End Date Status Duration) Simvastatin 40 MG TAKE 1 TABLET BY MOUTH AT Active BEDTIME Oral for 90 days Anastrozole 1 MG TAKE 1 TABLET BY MOUTH EVERY Active DAY Oral for 90 days 50+ [employer] Active Gabapentin 300 MG TAKE 1 CAPSULE BY MOUTH AT Active BEDTIME. Oral for 90 days Diltiazem HCl ER Beads 240 MG TAKE ONE CAPSULE BY MOUTH Active EVERY DAY Oral for 90 days Nitroglycerin 0.4 MG as directed Sublingual Active Gabapentin 300 MG TAKE 1 CAPSULE BY MOUTH AT Active BEDTIME. for 90 Metformin HCl 500 MG TAKE 1 TABLET BY MOUTH TWICE Active A DAY WITH MEALS for 90 Diazepam 5 MG 1 tablet as needed for Acti ve anxiety Orally Once a day Calcium 1200 6905-5373 MG-UNIT 1 tablet with a meal 6 days Active a week Orally Once a day Eliquis 5 MG TAKE 1 TABLET BY MOUTH TWICE Active A DAY FOR 90 DAYS Oral for 90 days Aspirin 81 81 MG 1 tablet Orally Once a day Active for 90 days Metformin HCl 500 MG TAKE 1 TABLET (500 MG) BY Active MOUTH 2 TIMES PER DAY WITH MEALS Oral for 90 days Losartan Potassium 100 MG 1 tablet Orally Once a day Active for 90 days Prolia 60 MG/ML as directed Subcutaneous Active Melatonin Active Loratadine 10 MG TAKE 1 TABLET BY MOUTH EVERY Active DAY Oral for 90 days PROCEDURES No Information RESULTS No Results REASON FOR VISIT 3 [facility] lab f/u [phone] MEDICAL (GENERAL) HISTORY Type Description Date Medical History Type 2 diabetes mellitus with hyperglyce usman, without long-term current use of insulin Medical History Mixed hyperlipidemia Medical History Essential hypertension Medical History Age-related osteoporosis without current pathological fracture Medical History Diabetic polyneuropathy associated with type 2 diabetes mellitus Medical History S/p TAVR (transcatheter aortic valve replacement), bioprosthetic Medical History Coronary artery disease of [place] artery of [place] heart with stable angina pectoris Medical History Chronic obstructive pulmonary disease, unspecified COPD type Medical History History of bladder cancer Medical History History of bilateral mastectomy Medical History History of malignant neoplasm of both br easts Medical History Diverticulosis large intestine w/o perfo ration or abscess w/o bleeding Medical History Gastro-esophageal reflux disease without esophagitis Medical History Generalized anxiety disorder Medical History Lymphedema of upper extremity Medical History Allergic rhinitis, unspecified seasonali ty, unspecified trigger Surgical History APPENDIX 1971 Surgical History G.BLADDER 1972 Surgical History BACK AND NECK 04/2016 Surgical History Partial Hysterectomy 1974 Surgical History Tonsillectomy 1940 Surgical History Oral-removal of all remaining teeth-dent ures 1953,1993 Surgical History child -torn gncckm-[id number]-vbf 1960 Surgical History ruptured main artery in intestines-blood 1984 transfusion Surgical History Biopsy-left breast 1984 Surgical History Heart catheter-heart murmur-moderate aor tic 1991,1993,2019 stenosis Surgical History Bladder/vaginal tact-prolapsed bladder a nd 2006 vagina Surgical History Colonoscopy-polyp removal Surgical History Cataract surgery X2 2011 Surgical History Double radical mastectomy 2013 Surgical History Bladder biopsy- chemotherapy 2013,2014,2 016 Surgical History Right foot-broken 2016 Surgical History compound fracture of 2 vertebrae-cement 2016 placement Hospitalization History HYSTERECTOMY Hospitalization History BACK & NECK Goals Section No Information Health Concerns No Information MEDICAL EQUIPMENT No Information MENTAL STATUS No Information FUNCTIONAL STATUS No Information ASSESSMENTS Encounter Date Diagnosis Notes May, Chronic kidney disease, stage 3 (moderat e) (ICD-10 - N18.3) May, Lymphedema of upper extremity (ICD-10 - I89.0) May, Proteinuria, unspecified type (ICD-10 - R80.9) May, Generalized anxiety disorder (ICD-10 - F 41.1) May, Mixed hyperlipidemia (ICD-10 - E78.2) May, Coronary artery disease of north fork artery of north fork heart with stable angina pectoris (ICD-10 - I25.118 ) May, Need for influenza vaccination (ICD-10 - Z23) May, Chronic obstructive pulmonary disease, u nspecified COPD type (ICD-10 - J44.9) May, Severe aortic valve stenosis (ICD-10 - I 35.0) May, Internal hemorrhoid (ICD-10 - K64.8) May, Diverticulosis large intestine w/o perfo ration or abscess w/o bleeding (ICD-10 - K57.30) May, Hypocalcemia (ICD-10 - E83.51) May, History of vertebral fracture (ICD-10 - Z87.81) May, Type 2 diabetes mellitus with hyperglyce usman, without long-term current use of insulin (ICD-10 - E11.65) May, History of malignant neoplasm of both br easts (ICD-10 - Z85.3) May, Type 2 diabetes mellitus with diabetic c hronic kidney disease (ICD-10 - E11.22) May, Essential hypertension (ICD-10 - I10) May, Primary osteoarthritis of left knee (ICD -10 - M17.12) May, Moderate protein-calorie malnutrition (I CD-10 - E44.0) May, History of bladder cancer (ICD-10 - Z85. 51) May, Anemia, unspecified type (ICD-10 - D64.9 ) May, Gastro-esophageal reflux disease without esophagitis (ICD-10 - K21.9) May, History of bilateral mastectomy (ICD-10 - Z90.13) May, Allergic rhinitis, unspecified seasonali ty, unspecified trigger (ICD-10 - J30.9) May, Diabetic polyneuropathy associated with type 2 diabetes mellitus (ICD-10 - E11.42) May, Age-related osteoporosis without current pathological fracture (ICD-10 - M81.0) May, History of fall (ICD-10 - Z91.81) May, S/p TAVR (transcatheter aortic valve rep lacement), bioprosthetic (ICD-10 - Z95.3) May, Diaphragmatic hernia without obstruction or gangrene (ICD-10 - K44.9) PLAN OF TREATMENT Medication Medication Name Sig Start Date Stop Date Nitroglycerin 0.4 MG as directed Sublingual Prolia 60 MG/ML as directed Subcutaneous Eliquis 5 MG TAKE 1 TABLET BY MOUTH TWICE A DAY FOR 90 DAYS Oral for 90 days Diltiazem HCl ER Beads 240 MG TAKE ONE CAPSULE BY MOUTH EVERY DAY Oral for 90 days Aspirin 81 81 MG 1 tablet Orally Once a day for 90 days Losartan Potassium 100 MG 1 tablet Orally Once a day for 90 days 50+ [employer] Metformin HCl 500 MG TAKE 1 TABLET (500 MG) BY MOUTH 2 TIMES PER DAY WITH MEALS Oral for 90 days Diazepam 5 MG 1 tablet as needed for anxiety Orally Once a day Calcium 1200 3490-7731 MG-UNIT 1 tablet with a meal 6 days a week Orally Once a day Loratadine 10 MG TAKE 1 TABLET BY MOUTH EVERY DAY Oral for 90 days Simvastatin 40 MG TAKE 1 TABLET BY MOUTH AT BEDTIME Oral for 90 days Anastrozole 1 MG TAKE 1 TABLET BY MOUTH EVERY DAY Oral for 90 days Gabapentin 300 MG TAKE 1 CAPSULE BY MOUTH AT BEDTIME. Oral for 90 days Treatment Notes Assessment Notes Clinical Notes Internal hemorrhoid . Discussed supportive measures for symptomatic relief Type 2 diabetes mellitus with CONTROLLED. On metformin. hyperglycemia, without long-term Continue current regimen. current use of insulin Education given., Diabetes Education Diabetes is a disorder that disrupts the way your body uses glucose (sugar). It is a chronic medication condition that requires regular monitoring and treatment throughout your life. Treatment includes: lifestyle modification, self-care measures, and medication. Fortunately, these treatments can keep the blood sugar levels close to normal and minimize the risk of developing complications. The primary blood test to measure the progress of diabetes is the Hemoglobin A1c. Normal levels is less than 7.0 but less than 6.5 is considered excellent control. Fasting blood sugars should be in the range of 80-120 while random blood sugars should range below 200 especially after meals. Carbohydrate (sugar) intake for diabetics should be below 45 grams per meal and 15 grams per snack. Diabetic preventive care is vital to prevent complications, so it is important to have yearly diabetic eye and foot exams with specialists. If your diabetes is not controlled, then contact your doctor to further address.Medication may need to be adjusted and/or added. Diverticulosis large intestine . Managed by gastroenterolog y. w/o perforation or abscess w/o Stable at this time bleeding Moderate protein-calorie Education given. Resources malnutrition provided. Gastro-esophageal reflux disease . Managed by GI. Educatio n without esophagitis given. Essential hypertension . Blood pressure taken and Labs faxed to Cardio. lower extremity due to lymphedema in upper extremity. Controlled at home per patient. CHANGED TO LOSARTAN 100 mg Due to cost. Education given., DASH Diet discussed. Instructed to measure BP at home and bring in log to f/u appt. Instructions and logs given. Education given. , HTN Education This is a condition that puts at risk for heart attack, stroke, and kidney disease. Lifestyle modification, low fat/low salt diet, exercise, low alcohol intake and medication is utilized to help control your BP. Untreated HTN increases the strain on the heart and arteries, eventually causing organ damage.Normal BP is less than 140/90. High BP is greater than 140/90. If your BP is not controlled, call your doctor. Medication may need to be adjusted and/or added. Compliance with medication is vital. If you have chest pain, shortness of breath, severe nausea/vomiting, fatigue, and other symptoms, you will need to contact your doctor or go to the ER immediately to address. Diaphragmatic hernia without . Managed by GI obstruction or gangrene Age-related osteoporosis without . On Prolia every 6 months . current pathological fracture Tolerating well. Education given. Continue vitamin D and calcium supplements. Allergic rhinitis, unspecified Stable with [id number] seasonality, unspecified trigger antihistamine. Education given. Diabetic polyneuropathy Education given. Stable with associated with type 2 diabetes gabapentin. Tolerating well . mellitus Anemia, unspecified type Discussed DDX. Education given. ASymptomatic. Will monitor and repeat. Labs faxed to Onc. S/p TAVR (transcatheter aortic . Managed by cardiology valve replacement), bioprosthetic History of bladder cancer . Seen by urologist Coronary artery disease of . Managed by cardiology. north fork artery of north fork heart Asymptomatic at this time with stable angina pectoris History of malignant neoplasm of Seen by oncologist routine both breasts Primary osteoarthritis of left Managed by Ortho. Education knee given. Generalized anxiety disorder . Managed by cardiology. Education given Chronic kidney disease, stage 3 Discussed differential (moderate) diagnosis with patient. Education given. Asymptomatic. If unchanged or worsen will refer to nephrology Hypocalcemia Discussed DDx. Education given. Asymptomatic. Mixed hyperlipidemia . Tolerating well. Continue current regimen. Side effect discussed. , Hyperlipidemia Education: Hyperlipidemia refers to increased levels of lipids(fats) in the blood, including cholesterol and triglycerides. This can significantly increase your risk of developing coronary artery disease and peripheral artery disease. This can cause chest pain, heart attack, stroke, and fatigue. Treatment is recommended to decrease your risk. Treatment includes: lifestyle modification, low salt/low fat diet, exercise, tobacco cessation, low alcohol intake and sometimes medication. Blood tests (TC,TG, HDL, LDL) are utilized to determine treatment regimens. TC(Total cholesterol) should be below 200. TG(Total Triglycerides) should be below 150. HDL(Good cholesterol) should be above 40. LDL(Bad Cholesterol) should be below 130(if you have one risk factor) or less than 100( if you have more than one risk factor or have DM/CAD/PVD). Compliance with medication and treatment is vital. If you have questions, talk to your doctor. Chronic obstructive pulmonary . Stable. Education given. No disease, unspecified COPD type inhalers. , COPD Education: This is condition in which the airways in the lungs become damaged, making it increasingly difficult for air to pass in and out. Symptoms may include: shortness of breath, chronic cough, chest pain, fatigue with exertion and other. Compliance with medication is vital to control the symptoms and to slow the progression of the disease. Symptoms of COPD cannot be completely eliminated with treatment. COPD usually worsens over time. If your symptoms acutely worsen, please contact the doctor. This may indicate a need to adjust and/or add medication. Pulmonary consultation maybe be required if symptoms do not improve. Lymphedema of upper extremity . Discussed differential diagnosis with patient. Education given. Discussed supportive measures for symptomatic relief Treatment Notes Test Name Order Date Lipid Panel With LDL/HDL Ratio 2020-05-21 PTH, Intact 2020-05-21 Calcium, Ionized, Serum 2020-05-21 Microalbumin/Creat Ratio, Random Ur 2020-05-21 Hematopath Consultation, Smear 2020-05-21 Hemoglobin A1c 2020-05-21 Comp. Metabolic Panel (14) (CMP) 2020-05-21 CBC With Differential/Platelet 2020-05-21 Next Appt Details 3 Months + Labs 1 week before Reason: Provider Name:Mike Joya, 2020-08-21 1 0:30:00 AM, [address], [address], [place], [address], Insurance Providers Payer Name Payer Address Payer Insured Patient Coverage Cover age Phone Name Relationship to Start Date End Date Insured [place] [phone] Alexandra Keller [employer] [facility] [address] [place] [address] MEDICARE Attn Part B [id number] Alexandra Keller [address] [place] [address] [facility] [id number]
[2020-06-22] MEDS ORDERED: HEPARIN 500 UNIT/5 ML SYR IV ONE (10:42)
[2020-06-22 11:04] VITALS: BP 161/57; TEMP 97.7; O2SAT 99; BMI 24.7
== END 2020-06-22 10:53 | disposition home or self-care (01) ==
LOC: DS 10:14
PROVIDERS: ATTEND Family Medicine
DX: Z45.2 Encounter for adjustment and management of vascular access device (principal); C50.919 Malignant neoplasm of unspecified site of unspecified female breast
CPT/HCPCS: 96523; J1642

== ENCOUNTER → 2020-08-03 | Day surgery (SDC) | payer OTHER ==
[~2020-08-03] MED LIST: HEPARIN 500 UNIT/5 ML SYR IV ONE
--- OUTSIDE RECORDS SUMMARY | 2020-08-03 10:42 | XMS REPORT | Clinical Summary ---
:1935 Author Organization [facility] Address [address] [place] [address] Care Team Providers Name Role Phone Asked, [...] Health Maintenance Due Date Last Done Comments COVID-19 VACCINE (#1) 1951 SHINGLES VACCINES (#1) 1985 65+ PNEUMOCOCCAL VACCINE (1 of - PPSV23) 2000 INFLUENZA VACCINE 03/17/2020 Results Not on fileafter 08/03/2019 Insurance Payer Benefit Plan / Subscriber ID Effective Phone Address T ype Group Dates MEDICARE MEDICARE PART [id number] 2000-Pres ANN, T X Medicare A AND B ent [facility] [id number] 2016-Pres Erik shepherd IRAQI IRAQI ent Advance Directives For more information, please contact: [phone] Type Date Recorded Patient Scrip Clerk Explanati on Advance Directives, Living Will and Medical Power of Entry Level Recruiter Advance Directives, 05/12/2020 1:53 AM Living Will and Medical Power of Entry Level Recruiter
--- OUTSIDE RECORDS SUMMARY | 2020-08-03 10:43 | XMS REPORT | Continuity of Care Document ---
:1935 Author Organization [facility] [facility] [employer] Care Team Providers Name Role Phone [employer] Unavailable Un available Problems Problem Status Onset Classification Date Comments Sourc e Date Reported POSTMASTECTOMY Active 11/23/19 Condition 11/22/2014 [facility] edical LYMPHEDEMA 15 Group SYNDROME PERIPHERAL Active 11/10/19 Condition 11/22/2014 Medic al NEUROPATHY 14 Group BLADDER CANCER Active 11/10/19 Condition 11/22/2014 [facility] edical 14 Group HEMATURIA, HX OF Active 05/11/20 Condition 11/22/2014 Medical 13 Group RENAL Active 05/11/20 Condition 11/22/2014 Medica l INSUFFICIENCY 13 Group CAD Active 05/11/20 Condition 11/22/2014 Medica l 13 Group BREAST CANCER Active 11/10/19 Condition 11/22/2014 [facility] dical 13 Group HYPERTENSION Active Condition 11/22/2014 Med ical Group HYPERLIPIDEMIA Active Condition 11/22/2014 [facility] edical Group C O P D [...] CR TAKE ONE Active MH 240 MG [id number] TABLET ONCE 012 Med ical A DAY [...] For Provider Date Date Visit [facility] [phone] Lázaro Sargent, 05/24 05/24 [facility] Visit [address] [facility] Cardiology [facility] [phone] Lázaro Sargent, 11/22 11/22 [facility] Visit [address] [place] [facility] Cardiology Procedures Procedure Code Date Perfomer [...]
--- OUTSIDE RECORDS SUMMARY | 2020-08-03 10:44 | XMS REPORT | Continuity of Care Document ---
:1935 Author Organization [facility] t Address [address] [place] [address] Care Team Providers Name Role Phone Asked, [...] moria CANCER 11-09 15:11:11 l BLADDER 00:00: [place] CANCER 00 Active 11/09/2013 Condition 5 Medical [...] Mem oria 9-25 15:11:11 l CAD 00:00: Yunior 00 Active 05/11/2013 Condition 5 [facility] BREAST Condition Active 2014-11-22 Mem oria CANCER 3-26 15:11:11 l BREAST 00:00: [place] CANCER 00 Active 11/09/2012 Condition 5 [facility] Group HYPERTENSI Condition Active 2014-11-22 Memoria ON 15:11:11 l [place] HYPERTENSI ON Active Condition 11/22/2014 Medical Group HYPERLIPID Condition Active 2014-11-22 Memoria EMIA 15:11:11 l [place] HYPERLIPID EMIA Active Condition 11/22/2014 [facility] C O P D Condition Active 2014-11-22 Me moria 15:11:11 l C O P D [place] Active Condition 11/22/2014 [facility] DIABETES, Condition Active 2014-11-22 Memoria TYPE 2 15:11:11 l [place] DIABETES, TYPE 2 Active Condition 11/22/2014 [facility] VITAMIN D Condition Active 2014-11-22 Memoria DEFICIENCY 15:11:11 l VITAMIN [place] D DEFICIENCY Active Condition 11/22/2014 [facility] LONG-TERM Condition Active 2014-11-22 [...] Date Quantity Comments Source Sex Assigned At [facility] ethodist Alcohol intake 2016-04-14 2016-04-14 Current [facility] thodist 00:00:00 00:00:00 non-drinker of alcohol (finding) Smoking Status Start Date Stop Date Source Never smoker Samuels Noniis t Medications Ordered Filled Start Stop Current Ordering Indication Dosage Frequency Signature Comments Components Source Medication Medication Date Date Medication? Clinician (SIG) Name Name Losartan Losartan Yes Mike [address] [facility] Potassium Potassium 04-03 Toan Sotelo s - 00:00: [facility] Plavix 2018-08 Yes Ady 1 tablet Nadeem bambi 08-18 Macris l 02:00: [place] 27 ANASTROZOLE Yes Take by Rachel ston [...] 09:34: nightly. st 26 gabapentin Yes 300mg Q.[id number] Take 300 Samuels (NEURONTIN) 8- [id number] mg by Herbert bloomodi 300 MG 09:34: 3D mouth 3 st capsule 26 (three) times a day. traMADol Yes 50mg Q6H Take 50 mg Rachel ston (ULTRAM) 50 8-22 by mouth Meth oscar mg tablet 09:34: every 6 st 26 (six) hours as needed for moderate pain. diltiazem 2015-0 Yes 240mg QD Take 240 Rachel ston CD 8-22 mg by Methodi (CardIZEM 09:34: mouth st CD) 240 MG 26 daily. 24 hr capsule LORATADINE Yes Take by [place] (CLARITIN 8-22 mouth. [facility]i ORAL) 09:34: st 26 ERGOCALCIFE 2015-0 Yes Take by Rachel ston ROL, 8 mouth. Methodi VITAMIN D2, 09:34: st (VITAMIN D2 26 ORAL) IBUPROFEN 2015- Yes Take by Abigailt on (ADVIL 04-07 mouth. Methodi ORAL) 09:34: st 26 aspirin 2015-0 Yes 81mg QD Take 81 mg [place] (ECOTRIN) 8 by mouth Method i 81 MG 09:34: daily. st enteric 26 coated tablet calcitonin, 2015- Yes INHALE 1 Baldomero coombs salmon, 04-02 (ONE) Methodi (MIACALCIN) 00:00: SOLUTION, s t 200 00 NASAL, unit/actuat DAILY. ion nasal spray tramadol-ac 2015- Yes 1{tbl} Q.[id number] Take 1 [place] etaminophen 04-02 [id number] tablet by Methodi (ULTRACET) 00:00: 3D mouth 3 st 37.5-325 mg 00 (three) per tablet times a day as needed. anastrozole 2015- Yes 1mg QD Take 1 mg [place] (ARIMIDEX) 03-17 by mouth Metho di 1 mg chemo 00:00: once st tablet 00 daily. naproxen 2015- Yes 500mg Q.5D Take 500 [place] (NAPROSYN) 7-27 mg by Methodi 500 MG 00:00: mouth 2 st tablet 00 (two) times a day as needed. simvastatin 2015- Yes TAKE 1 [place] (ZOCOR) 40 6-30 TABLET BY Meth oscar MG tablet 00:00: MOUTH AT st 00 BEDTIME. lisinopril- Yes 1{tbl} Q.5D Take 1 [place] hydrochloro 6-21 tablet by Met jensen thiazide 00:00: mouth 2 st (PRINZIDE,Z 00 (two) ESTORETIC) times a 20-25 mg day. per tablet ARIMIDEX 1 2013-08 Yes one tablet M emoria MG TABS 0-01 daily l 00:00: GABAPENTIN Yes ONE PO QPM M emoria 300 MG CAPS 3-03 l 00:00: METFORMIN 2013- Yes ONE PO QD Mem oria HCL [...] bambi HYDROCHLORO 3-03 TWICE l THIAZIDE 00:00: [place] 20-25 MG 00 TABS METFORMIN Yes ONE [...] l MG 00:00: ONCE A DAY Yunior FO23B-WTO 00 VALIUM 5 MG Yes TAKE ONE Me moria TABS 8-24 TABLET l 00:00: DAILY NEEDED NITROSTAT Yes TAKE Memor ia 0.4 MG SUBL 8-24 DIRECTED l 00:00: AND NEEDED FOR CHEST PAIN ASPIRIN EC Yes i po qd Nadeem bambi 81 MG TBEC 8-24 l 00:00: [place] 00 NAPROSYN No TAKE 1 Memoria 375 MG TABS 8-24 TABLET BY l 00:00: MOUTH Yunior 00 TWICE DAILY NEEDED ASPIRIN EC Yes i po qd Nadeem bambi 81 MG TBEC 8-24 l 00:00: [place] 00 LISINOPRIL- No ONE PO BID Memoria [...] Value Comments Source Weight 2019-05-24 19:15:00 [facility] [place] Height 2019-05-24 19:15:00 [facility] Y[facility] Diastolic (mm Hg) 2019-05-24 19:15:00 Mem orial [place] Systolic (mm Hg) 2019-05-24 19:15:00 Nadeem bambil Yunior Weight 2014-11-22 20:11:11 [facility] [place] Systolic (mm Hg) 2014-11-22 20:11:11 Nadeem rial Yun[place] Diastolic (mm Hg) 2014-11-22 20:11:11 Mem orial [place] Heart Rate 2014-11-22 20:11:11 [facility] [place] Weight 2014-05-24 20:07:31 [facility] [place] Systolic (mm Hg) 2014-05-24 20:07:31 Nadeem rial Yun[place] Diastolic (mm Hg) 2014-05-24 20:07:31 Mem orial [place] Heart Rate 2014-05-24 20:07:31 [facility] [place] Weight 2013-11-09 19:23:21 [facility] [place] Systolic (mm Hg) 2013-11-09 19:23:21 Nadeem rial Yunior Diastolic (mm Hg) 2013-11-09 19:23:21 Mem orial [place] Heart Rate 2013-11-09 19:23:21 [facility] [place] Weight 2013-05-11 19:51:50 [facility] [place] Systolic (mm Hg) 2013-05-11 19:51:50 Nadeem rial [place] Diastolic (mm Hg) 2013-05-11 19:51:50 Mem orial [place] Heart Rate 2013-05-11 19:51:50 [facility] [place] Weight 2012-10-18 21:02:00 [facility] [place] Systolic (mm Hg) 2012-10-18 21:02:00 Nadeem rial Yunior Diastolic (mm Hg) 2012-10-18 21:02:00 Mem orial [place] Heart Rate 2012-10-18 21:02:00 [facility] [place] Weight 2012-04-09 13:43:01 [facility] Yunior Systolic (mm Hg) 2012-04-09 13:43:01 Nadeem rial [place] Diastolic (mm Hg) 2012-04-09 13:43:01 Mem orial [place] Heart Rate 2012-04-09 13:43:01 [facility] Y[facility] Weight 2011-04-11 15:41:18 [facility] [place] Systolic (mm Hg) 2011-04-11 15:41:18 Nadeem rial [place] Diastolic (mm Hg) 2011-04-11 15:41:18 Mem orial [place] Heart Rate 2011-04-11 15:41:18 [facility] [place] Weight 2010-10-10 16:41:18 [facility] [place] Height 2010-10-10 16:41:18 [facility] [place] Systolic (mm Hg) 2010-10-10 16:41:18 Nadeem rial Yunior Diastolic (mm Hg) 2010-10-10 16:41:18 Mem orial Yun[place] Heart Rate 2010-10-10 16:41:18 [facility] Yun[place] Weight 2010-04-03 15:41:18 [facility] [place] Systolic (mm Hg) 2010-04-03 15:41:18 Nadeem rial [place] Diastolic (mm Hg) 2010-04-03 15:41:18 Mem orial Yunior Heart Rate 2010-04-03 15:41:18 [facility] Yunior Procedures Procedure Date / Time Performed Performing Clinician [facility] e smoking/tobacco 2013-11-09 19:23:21 [facility] Her vallejo cessation, patient education and counseling Plan of Care Planned Activity Planned Date Details Comments Source Future Scheduled 2020-03-17 INFLUENZA VACCINE [place] [facility] 00:00:00 [code = INFLUENZA VACCINE] Future Scheduled 2000 65+ PNEUMOCOCCAL [place] [facility] 00:00:00 VACCINE (1 of 1 - PPSV23) [code = 65+ PNEUMOCOCCAL VACCINE (1 of 1 - PPSV23)] Future Scheduled 1985 SHINGLES VACCINES (#1) H yanira [facility] 00:00:00 [code = SHINGLES VACCINES (#1)] Future Scheduled 1951 COVID-19 VACCINE (#1) Ho malvin [facility] 00:00:00 [code = COVID-19 VACCINE (#1)] Encounters Start End Encounter Admission Attending Care Care Encounter Source Date/Time Date/Time Type Type Clinicians Facility Department ID 2019-06-14 Outpatient [facility] [id number] Me moria 08:22:36 [facility] 2019-05-17 Inpatient [facility] [id number] Mem oria 06:43:00 [facility] 2019-05-13 Outpatient [facility] [id number] Me moria 12:47:12 l [place] [facility] 2020-07-19 2020-07-19 [facility] [id number] 2020-07-16 2020-07-16 Out[facility] [id number] [facility] 2020-05-21 2020-05-21 Outpatient [facility] [id number] [facility] 2020-04-02 2020-04-02 [facility] [id number] [facility] 14:26:00 14:26:00 t Rundown [facility] Outpat[facility] Clinics 2020-02-20 2020-02-20 [facility] [id number] [facility] 10:45:00 10:45:00 t Rundown [facility] Medicine Outpat[facility] ent Clinics 2019-12-09 2019-12-09 [facility] [id number] [facility] 10:00:00 10:00:00 t Stroz Friedberg s - [employer] [facility] Medicine Outpati ent Clinics 2019-12-09 2019-12-09 [facility] [id number] 09:45:00 09:45:00 t [place] [facility] Medicine Outpat[facility] ent Clinics 2019-12-06 2019-12-06 [facility] [id number] 14:22:00 14:22:00 t [place] [employer] [facility] Medicine Outpati ent Clinics 2019-10-12 2019-10-12 [facility] [id number] [address] 14:30:00 14:30:00 t [employer] [facility] Medicine Outpati ent Clinics 2019-10-12 2019-10-12 [facility] [id number] 10:00:00 10:00:00 t Rundown [facility] Clinics 2019-06-29 2019-06-29 Outpatient [facility] [id number] Memoria 10:11:00 10:11:00 [facility] 2019-05-24 2019-05-24 Outpatient Ady Arango [id number] [facility] 14:15:00 14:15:00 Kritsi Berry MD al Works 2019-04-26 2019-04-26 Outpatient [facility] [id number] Memoria 06:54:00 06:54:00 l [facility] 2019-04-04 2019-04-04 Outpatient [facility] [id number] Memoria 11:24:00 11:24:00 l [place] [facility] 2018-04-06 2018-04-06 [facility] [id number] [facility] 08:00:00 08:00:00 [facility] 2018-03-15 2018-03-15 [facility] [id number] 08:30:00 08:30:00 [facility] Results Test Description Test Time Test Comments Results Result Sourc e Comments Hematology 2013-12-23 34.06 Memorial 22:18:44 [place] Hematology 2013-12-23 11.40 Memorial 22:18:44 Yunior Hematology 2013-12-23 205 [facility] 22:18:44 Yunior Chemistry 2013-12-18 141 [facility] 11:18:00 Yunior Chemistry 2013-12-18 48 [facility] 11:18:00 [place] Chemistry 2013-12-18 177 [facility] 11:18:00 [place] Chemistry 2013-12-18 58 MG/DL (CALC) Memorial 11:18:00 [place] Hematology 2013-12-02 36.28 Memorial 14:37:02 [place] Hematology 2013-12-02 12.11 Memorial 14:37:02 [place] Hematology 2013-12-02 196 [facility] 14:37:02 [place] Chemistry 2013-11-09 135 [facility] 22:20:44 Yunior Chemistry 2013-11-09 4.0 Memorial 22:20:44 Yunior Chemistry 2013-11-09 22 Memorial 22:20:44 Yunior Chemistry 2013-11-09 1.04 Memorial 22:20:44 Yunior Chemistry 2013-11-09 9.9 Memorial 22:20:44 [place] Chemistry 2013-11-09 17 Memorial 22:20:44 Yunior Chemistry 2013-11-09 17 Memorial 22:20:44 [place] Chemistry 2013-02-23 32 Memorial 07:48:00 [place] Chemistry 2013-02-23 2.25 Memorial 07:48:00 [place] Chemistry 2013-02-23 14 (calc) Memorial 07:48:00 [place] Chemistry 2013-02-23 135 [facility] 07:48:00 [place] Chemistry 2013-02-23 4.7 Memorial 07:48:00 Yunior Chemistry 2013-02-23 9.3 Memorial 07:48:00 Yunior Chemistry 2012-12-10 138 [facility] 16:16:06 [place] Chemistry 2012-12-10 4.2 Memorial 16:16:06 [place] Chemistry 2012-12-10 6.9 Memorial 16:16:06 [place] Chemistry 2012-12-10 27 Memorial 16:16:06 [place] Chemistry 2012-12-10 1.04 Memorial 16:16:06 [place] Chemistry 2012-12-10 16 Memorial 16:16:06 Yunior Chemistry 2012-12-10 16 Memorial 16:16:06 Y[place] Chemistry 2012-12-10 98 Memorial 16:16:06 Yunior Hematology 2012-12-10 36.0 Memorial 16:16:06 Y[place] Hematology 2012-12-10 12.1 Memorial 16:16:06 Y[place] Hematology 2012-12-10 238 [facility] 16:16:06 Yunior Chemistry 2012-11-08 130 Memorial 06:54:00 Yunior Chemistry 2012-11-08 39 Memorial 06:54:00 Yunior Chemistry 2012-11-08 126 [facility] 06:54:00 [place] Chemistry 2012-11-08 66 MG/DL (CALC) Memorial 06:54:00 [place] Chemistry 2012-11-08 19 Memorial 06:54:00 Yunior Chemistry 2012-11-08 0.93 [facility] 06:54:00 [place] Chemistry 2012-11-08 NOT APPLICABLE Memorial 06:54:00 (calc) [place] Chemistry 2012-11-08 138 Memorial 06:54:00 [place] Chemistry 2012-11-08 4.7 Memorial 06:54:00 Yunior Chemistry 2012-11-08 10.1 Memorial 06:54:00 Yunior Chemistry 2012-11-08 4.3 Memorial 06:54:00 [place] Chemistry 2012-11-08 110 Memorial 06:54:00 Yunior Chemistry 2012-11-08 14 Memorial 06:54:00 [place] Chemistry 2012-11-08 16 Memorial 06:54:00 Yunior Chemistry 2012-11-08 7.1 % OF TOTAL Memorial 06:54:00 HGB [place] Chemistry 2012-04-10 21 Memorial 11:51:00 Yunior Chemistry 2012-04-10 16 Memorial 10:19:00 [place] Chemistry 2012-04-10 0.80 Memorial 10:19:00 Yunior Chemistry 2012-04-10 10:19:00 Test Item Value Reference Range Interpretation Comme nts BUN/CREAT (test code = BUN/CREAT) 20 1 -26 [facility] UqutylvNaruoggxb6736-18-86 10:19:31970Pjdjxnwv [facility] 2012-04-10 10:19:004.2[facility] PgobsxjOvfzzdbkh9638-06-68 10:19:009.7[facility]orial PbqkjgzZobedaxmb4669-21-66 10:19:004.2[facility]orial HfzgzjoJamxkflqv9836-15-90 10:19:85563Atdajoqc WlewkqpQmwfnlrtx7662-88-49 10:19:0019[facility]orial Yunior Ripmwuicj2687-76-91 10:19:68006Tnjzvlpi LehhepyNevwjvpfl1306-46-91 10:19:43794 Memorial MwzpqmrVsshbdbvz7312-89-96 10:19:0044[facility] 2012-04-10 10:19:82683.0[facility] PolywmsHhkbbmrgd8482-18-98 10:19:0068[facility] OjpckxrLlqsfnmlm4278-57-94 15:41:186.3[facility]orial NpfewohRmdjkshpj1305-43-55 16:41:05403Uvnmkiwo WsoklopXgfiywquj8089-98-22 16:41:1850[facility] [place] Jlnporeug2567-56-65 16:41:1898[facility] IurmkxfSbgbniame3271-27-03 16:41:32591 Memorial WthdyhcAmotrggvc9047-05-57 16:41:184.5[facility] 2010-10-10 16:41:1819[facility] HscpdjjOjmqktlyr6115-88-36 16:41:1815[facility] NuymrelPytpbtuur2278-19-52 16:41:85578Vxvcxgdw MluhmomQvwikdxct8834-90-63 16:41:1815[facility] XisbiqsVpokjdauy8194-36-53 16:41:180.92[facility] [place] Hsbhspakc1358-64-09 16:41:184.4[facility]orial QwxucjpYtbxtvnhe9894-21-33 16:41:186.6 Memorial LhxklzsFazswopjs9061-48-30 16:41:1810.3[facility] 2010-04-04 15:41:21084Bxfgrmdy IfhcbikUpkjllglg4465-45-27 15:41:1848[facility] CunauwdUwpqgspkx3546-69-69 15:41:90700Icupsqzp XypdogaWdoxsgtik5678-12-84 15:41:80839Sahneqrp QfatzyzZqqapyxdg8698-04-23 15:41:186.6[facility] [place] Jdjphpvwl7278-23-22 15:41:1816Mem[facility] PkwlxduHksukyhyi4024-79-27 15:41:1813 Memorial CogvfjmPmshmcryc3004-13-11 15:41:76345Xcmjhfeb [facility] 2010-04-04 15:41:1820[facility] AhhckyhHafypecze3306-26-70 15:41:180.91[facility] HotgukuSkhjdcvuo5716-04-43 15:41:185.0[facility] CwajmlaIbektycbu4084-18-99 15:41:189.7[facility] EanyounIvfutssit1581-69-23 15:41:19941Lclvwtkk [place] Yunwtairh8936-64-47 15:41:1854[facility] TphhtbbDzithdgkx3749-90-91 15:41:1898 Memorial KkbrfrsTnrzmuofs6096-08-02 15:41:05400Rojlewdy [facility] 2008-06-06 15:41:184.0[facility] ZvtfltdOsnfwcclk8525-67-18 15:41:1816[facility] DjoarsaYqrzypswm4762-38-73 15:41:1817[facility] UigkagoUygvauczi2744-14-87 15:41:06799Sxcimgkg JpyvgsqHrdqsuxxj3480-87-27 15:41:1814[facility] [place] Zpqlhizkd5014-90-52 15:41:180.94Memorial FskdpdaFtraomobp5317-59-57 15:41:184.0 Memorial NzifvcaJjznejnzr1602-44-20 15:41:189.8[facility] [place]
--- OUTSIDE RECORDS SUMMARY | 2020-08-03 10:44 | XMS REPORT ---
:1935 Author Organization [facility] Address [address] 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), bioprosthetic Problem Peripheral G62.9 Active 66188470 polyneuropathy Problem Type 2 diabetes E11.65 Active 64070355 mellitus with hyperglycemia, without long-term current use of insulin Problem 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 Problem Gastro-esophageal K21.9 Active 455402096 reflux disease without esophagitis Problem Primary M17.12 Active 758423998025959 osteoarthritis of left knee Problem History of Z85.51 Active 455214225 bladder cancer Problem Acute pain of M25.562 Active 00860837 left knee Problem Mixed E78.2 Active 314396792 hyperlipidemia Problem Age-related M81.0 Active 47117227 osteoporosis without current pathological fracture Problem Chronic J44.9 Active 51844872 obstructive pulmonary disease, unspecified COPD type Problem Moderate E44.0 Active 704064104 protein-calorie malnutrition Problem Essential I10 Active 33953833 hypertension Problem Lymphedema of I89.0 Active 499493582 upper extremity Problem Hypocalcemia E83.51 Active 5545141 Problem Generalized F41.1 Active 62445949 anxiety disorder Problem Sciatica of left M54.32 Active 80994803 side Problem 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 080084154 malignant neoplasm of both breasts Problem Diabetic E11.42 Active 333842343 polyneuropathy associated with type 2 diabetes mellitus Problem Diverticulosis K57.30 Active 322547966 large intestine w/o perforation or abscess w/o bleeding Problem 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 Problem Chronic kidney N18.3 Active 271300258 disease, stage 3 (moderate) ALLERGIES No Known Allergies ENCOUNTERS from 1935 to 2020-07-17 Encounter Location Date Provider Diagnosis [facility] [address], [place] [address] IMMUNIZATIONS Vaccine Route Administration Date Status FluAD [...] REASON FOR REFERRAL No Information VITAL SIGNS No information MEDICATIONS Medication SIG (Take, Route, Notes Start Date End Date Status Frequency, Duration) Nitroglycerin 0.4 MG as directed Sublingual Active Metformin HCl 500 MG TAKE 1 TABLET (500 MG) Active BY MOUTH 2 TIMES PER DAY WITH MEALS Oral for 90 days Shingrix 50 MCG/0.5ML 0.5 ml Intramuscular Jul, Jul, Active once for 1 days Melatonin Active Eliquis 5 MG TAKE 1 TABLET BY MOUTH Active TWICE A DAY FOR 90 DAYS Oral for 90 days Aspirin 81 81 MG 1 tablet Orally Once a Active day for 90 days Diazepam 5 MG 1 tablet as needed for Active anxiety Orally Once a day Simvastatin 40 MG TAKE 1 TABLET BY MOUTH Active AT BEDTIME Oral for 90 days Gabapentin 300 MG TAKE 1 CAPSULE BY MOUTH Active AT BEDTIME. Oral for 90 days Calcium 1200 3237-0320 1 tablet with a meal 6 Active MG-UNIT days a week Orally Once a day 50+ [employer] Director Womens Acti ve Losartan Potassium 100 1 tablet Orally Once a Active MG day for 90 days Prolia 60 MG/ML as directed Active Subcutaneous Gabapentin 300 MG TAKE 1 CAPSULE BY MOUTH Active AT BEDTIME. for 90 Diltiazem HCl ER Beads TAKE ONE CAPSULE BY Active 240 MG MOUTH EVERY DAY Oral for 90 days Loratadine 10 MG TAKE 1 TABLET BY MOUTH Active EVERY DAY Oral for 90 days Metformin HCl 500 MG TAKE 1 TABLET BY MOUTH Active TWICE A DAY WITH MEALS for 90 Anastrozole 1 MG TAKE 1 TABLET BY MOUTH Active EVERY DAY Oral for 90 PROCEDURES No Information RESULTS No Results REASON FOR VISIT Shingles vaccine Rx MEDICAL (GENERAL) HISTORY Type Description Date Medical History Type 2 diabetes mellitus with hyperglyce usman, without long-term current use of insulin Medical History Mixed hyperlipidemia Medical History Essential hypertension Medical History Age-related osteoporosis without current pathological fracture Medical History Diabetic polyneuropathy associated with type 2 diabetes mellitus Medical History S/p TAVR (transcatheter aortic valve replacement), bioprosthetic Medical History Coronary artery disease of [place] artery of [place] heart with stable angina pectoris Medical History [...] seasonali ty, unspecified trigger Surgical History APPENDIX 1972 Surgical History G.BLADDER 1972 Surgical History BACK AND NECK 04/2016 Surgical History Partial Hysterectomy 1974 Surgical History Tonsillectomy 1940 Surgical History Oral-removal of all remaining teeth-dent ures 1953,1993 Surgical History child -torn ydofyd-hdnbnpzlvwh-zlb 1960 Surgical History ruptured main artery in intestines-blood 1984 transfusion Surgical History Biopsy-left breast 1984 Surgical History Heart catheter-heart murmur-moderate aor tic 1991,1993,2018 stenosis Surgical History Bladder/vaginal tact-prolapsed bladder a nd 2006 vagina Surgical History Colonoscopy-polyp removal Surgical History Cataract surgery X2 2011 Surgical History Double radical mastectomy 2013 Surgical History Bladder biopsy- chemotherapy 2012,2014,2 016 Surgical History Right foot-broken 2016 Surgical History compound fracture of 2 vertebrae-cement 2016 placement Hospitalization History HYSTERECTOMY Hospitalization History BACK & NECK Goals Section No Information Health Concerns No Information MEDICAL EQUIPMENT No Information MENTAL STATUS No Information FUNCTIONAL STATUS No Information ASSESSMENTS No Information PLAN OF TREATMENT Medication Medication Name Sig Start Date Stop Date Gabapentin 300 MG TAKE 1 CAPSULE BY MOUTH AT BEDTIME. Oral for 90 days Loratadine 10 MG TAKE 1 TABLET BY MOUTH EVERY DAY Oral for 90 days Simvastatin 40 MG TAKE 1 TABLET BY MOUTH AT BEDTIME Oral for 90 days Diazepam 5 MG 1 tablet as needed for anxiety Orally Once a day Prolia 60 MG/ML as directed Subcutaneous Diltiazem HCl ER Beads 240 MG TAKE ONE CAPSULE BY MOUTH EVERY DAY Oral for 90 days Losartan Potassium 100 MG 1 tablet Orally Once a day for 90 days Aspirin 81 81 MG 1 tablet Orally Once a day for 90 days Calcium 1200 2547-8570 MG-UNIT 1 tablet with a meal 6 days a week Orally Once a day 50+ Business Solutions Director Womens Anastrozole 1 MG TAKE 1 TABLET BY MOUTH EVERY DAY Oral for 90 Nitroglycerin 0.4 MG as directed Sublingual Metformin HCl 500 MG TAKE 1 TABLET (500 MG) BY MOUTH 2 TIMES PER DAY WITH MEALS Oral for 90 days Shingrix 50 MCG/0.5ML 0.5 ml Intramuscular once for Jul, Jul, 1 days Eliquis 5 MG TAKE 1 TABLET BY MOUTH TWICE A DAY FOR 90 DAYS Oral for 90 days Next Appt Details Provider Name:[facility], 2020-08-21 1 0:30:00 AM, [address], [place], [address], Insurance Providers Payer Name Payer Address Payer Insured Patient Coverage Cover age Phone Name Relationship to Start Date End Date Insured MEDICARE Attn Part B [id number] Alexandra Keller [address] [place] Claims [phone] [facility] [address] [place] [phone] Alexandra Keller [facility] [address] [id number] [phone]
--- OUTSIDE RECORDS SUMMARY | 2020-08-03 10:45 | XMS REPORT ---
:1935 Author Organization [facility] Address [address] [place], 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), bioprosthetic Problem Peripheral G62.9 Active 58592818 polyneuropathy Problem Type 2 diabetes E11.65 Active 95327324 mellitus with hyperglycemia, without long-term current use of insulin Problem 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 Problem Gastro-esophageal K21.9 Active 138547439 reflux disease without esophagitis Problem Primary M17.12 Active 694533541596017 osteoarthritis of left knee Problem History of Z85.51 Active 995988501 bladder cancer Problem Acute pain of M25.562 Active 88704968 left knee Problem Mixed E78.2 Active 459683864 hyperlipidemia Problem Age-related M81.0 Active 51650580 osteoporosis without current pathological fracture Problem Chronic J44.9 Active 63294177 obstructive pulmonary disease, unspecified COPD type Problem Moderate E44.0 Active 476853645 protein-calorie malnutrition Problem Essential I10 Active 15068917 hypertension Problem Lymphedema of I89.0 Active 273544526 upper extremity Problem Hypocalcemia E83.51 Active 1236358 Problem Generalized F41.1 Active 19814581 anxiety disorder Problem Sciatica of left M54.32 Active 26112630 side Problem 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 137448347 malignant neoplasm of both breasts Problem Diabetic E11.42 Active 114573998 polyneuropathy associated with type 2 diabetes mellitus Problem Diverticulosis K57.30 Active 465218386 large intestine w/o perforation or abscess w/o bleeding Problem 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 Problem Chronic kidney N18.3 Active 681309447 disease, stage 3 (moderate) ALLERGIES No Known Allergies ENCOUNTERS from 1935 to 2020-07-19 Encounter Location Date Provider Diagnosis [facility] [address], [facility] Toan hillman for shingles Family Medicine [address], [facility] [place] [address] IMMUNIZATIONS Vaccine Route Administration Date Status FluAD IM Intramuscular May 21, 2020 Administered Shingrix IM Intramuscular Jul 19, 2020 Administered SOCIAL HISTORY Tobacco Use: Social [...] Start Date End Date Status Frequency, Duration) Metformin HCl 500 MG TAKE 1 TABLET BY MOUTH Active TWICE A DAY WITH MEALS for 90 Losartan Potassium 100 MG 1 tablet Orally Once a Active day for 90 days Diltiazem HCl ER Beads 240 TAKE ONE CAPSULE BY MOUTH Active MG EVERY DAY Oral for 90 days Gabapentin 300 MG TAKE 1 CAPSULE BY MOUTH Active AT BEDTIME. for 90 Simvastatin 40 MG TAKE 1 TABLET BY MOUTH AT Active BEDTIME Oral for 90 days Prolia 60 MG/ML as directed Subcutaneous Active Nitroglycerin 0.4 MG as directed Sublingual Active Eliquis 5 MG TAKE 1 TABLET BY MOUTH Active TWICE A DAY FOR 90 DAYS Oral for 90 days Gabapentin 300 MG TAKE 1 CAPSULE BY MOUTH Active AT BEDTIME. Oral for 90 days Metformin HCl 500 MG TAKE 1 TABLET (500 MG) BY Active MOUTH 2 TIMES PER DAY WITH MEALS Oral for 90 days Loratadine 10 MG TAKE 1 TABLET BY MOUTH Active EVERY DAY Oral for 90 days Anastrozole 1 MG TAKE 1 TABLET BY MOUTH Active EVERY DAY Oral for 90 50+ President And Chief Operating Officer Womens Acti ve Melatonin Active Calcium 1200 6088-4915 1 tablet with a meal 6 Active MG-UNIT days a week Orally Once a day Aspirin 81 81 MG 1 tablet Orally Once a Active day for 90 days Diazepam 5 MG 1 tablet as needed for Active anxiety Orally Once a day PROCEDURES No Information RESULTS No Results REASON FOR VISIT shingles vaccine, pt supplied. In office. MEDICAL (GENERAL) HISTORY Type Description Date Medical History Type 2 diabetes mellitus with hyperglyce usman, without long-term current use of insulin Medical History Mixed hyperlipidemia Medical History Essential hypertension Medical History Age-related osteoporosis without current pathological fracture Medical History Diabetic polyneuropathy associated with type 2 diabetes mellitus Medical History S/p TAVR (transcatheter aortic valve replacement), bioprosthetic Medical History Coronary artery disease of [place] artery of [place] heart with stable angina pectoris Medical History [...] teeth-dent ures 1953,1993 Surgical History child -torn [id number] 1960 Surgical History ruptured main artery in [...] STATUS No Information ASSESSMENTS Encounter Date Diagnosis Assessment Notes Treatment Notes Treatm ent Clinical Notes Jul, Need for shingles vaccine (ICD-10 - Z23) PLAN OF TREATMENT Next Appt Details 2-6 months for 2nd dose Reason: Provider Name:Mike Joya, 2020-08-21 1 0:30:00 AM, [address], [place], [address], Insurance Providers Payer Name Payer Address Payer Insured Patient Coverage Cover age Phone Name Relationship to Start Date End Date Insured DANTE [phone] Alexandra Keller [place] [facility] [place] [address] [place] [address] MEDICARE Attn Part B [id number] Alexandra Keller [address] Claims [address] [facility] [address]
[2020-08-03 13:28] VITALS: BP 133/55; TEMP 96.2; O2SAT 98; BMI 24.7
== END ==
LOC: DS 10:19
PROVIDERS: ATTEND Family Medicine
DX: Z45.2 Encounter for adjustment and management of vascular access device (principal); C50.919 Malignant neoplasm of unspecified site of unspecified female breast
CPT/HCPCS: 96523; J1642

== ENCOUNTER → 2020-09-25 | Day surgery (SDC) | payer OTHER ==
[2020-09-25 10:45] VITALS: BP 154/59; TEMP 97.3; O2SAT 98; BMI 25.8
--- OUTSIDE RECORDS SUMMARY | 2020-09-26 06:05 | XMS REPORT | Clinical Summary ---
:1935 Author Organization [facility] Address [address] [place] [address] Care Team Providers Name Role Phone Asked, [...] Due Date Last Done Comments COVID-19 VACCINE (1 of 2) 1951 SHINGLES VACCINES (#1) 1985 65+ PNEUMOCOCCAL VACCINE (1 of 1 - PPSV23) 2000 INFLUENZA VACCINE 03/17/2020 Results Not on fileafter 09/25/2019 Insurance Payer Benefit Plan / Subscriber ID Effective Phone Address T ype Group Dates MEDICARE MEDICARE PART [id number] 2000-Pres ANN, T X Medicare A AND B ent [facility] [id number] 2016-Pres Erik shepherd [place] ent Advance Directives For more information, please contact: [phone] Type Date Recorded Patient Investigator Utility Bill Complaints Explanati on Advance Directives, Living Will and Medical Power of Cheese Specialist Advance Directives, 05/12/2020 1:53 AM Living Will and Medical Power of Cheese Specialist
--- OUTSIDE RECORDS SUMMARY | 2020-09-26 06:06 | XMS REPORT | Continuity of Care Document ---
:1935 Author Organization [facility] [employer] Care Team Providers Name Role Phone [employer] Unavailable Un available Problems Problem Status Onset Classification Date Comments Sourc e Date Reported POSTMASTECTOMY Active 11/23/19 Condition 11/22/2014 [facility] edical LYMPHEDEMA 15 Group SYNDROME PERIPHERAL Active 11/10/19 Condition 11/22/2014 Medic al NEUROPATHY 14 Group BLADDER CANCER Active 11/10/19 Condition 11/22/2014 [facility] edical 14 Group HEMATURIA, HX OF Active 05/11/20 Condition 11/22/2014 Medical 13 Group RENAL Active 05/11/20 Condition 11/22/2014 Medica l INSUFFICIENCY 13 Group CAD Active 05/11/20 Condition 11/22/2014 Medica l 13 Group BREAST CANCER Active 11/10/19 Condition 11/22/2014 [facility] dical 13 Group HYPERTENSION Active Condition 11/22/2014 Med ical Group HYPERLIPIDEMIA Active Condition 11/22/2014 [facility] edical Group C O P D Active [...] CR TAKE ONE Active MH 240 MG [id number] TABLET ONCE 012 Med ical A DAY [...] 1 tablet Orally Active 75 MG Orally Macris Ady Once a day Macris Allergies, Adverse [...] Chemistry CREATININE 2.25 0.60 - 02/23 0.93 /2012 Medical Group Chemistry BUN/CREAT 14 [...] For Provider Date Date Visit [facility] [id number] Lázaro Sargent, 05/24 05/24 [facility] Visit [address] [facility] Card[facility] Office [id number] Lázaro Sargent, 11/22 11/22 [facility] Visit [address] [facility] Cardiology Procedures Procedure Code Date Perfomer [...]
--- OUTSIDE RECORDS SUMMARY | 2020-09-26 06:08 | XMS REPORT ---
:[address] [facility] Address [address] [place], 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 31751753797857 (transcatheter aortic valve replacement), bioprosthetic Problem Peripheral G62.9 Active 15925766 polyneuropathy Problem Type 2 diabetes E11.65 Active 59214801 mellitus with hyperglycemia, without long-term current use of insulin Problem 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 5944726101527 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 Problem Gastro-esophageal K21.9 Active 275118001 reflux disease without esophagitis Problem Primary M17.12 Active 146387149263841 osteoarthritis of left knee Problem History of Z85.51 Active 332257774 bladder cancer Problem Acute pain of M25.562 Active 37504719 left knee Problem Mixed E78.2 Active 709431742 hyperlipidemia Problem Age-related M81.0 Active 20188783 osteoporosis without current pathological fracture Problem Chronic J44.9 Active 42060584 obstructive pulmonary disease, unspecified COPD type Problem Moderate E44.0 Active 289378327 protein-calorie malnutrition Problem Essential I10 Active 53861464 hypertension Problem Lymphedema of I89.0 Active 747703023 upper extremity Problem Hypocalcemia E83.51 Active 3823887 Problem Generalized F41.1 Active 25671558 anxiety disorder Problem Sciatica of left M54.32 Active 52098334 side Problem 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 510993410 malignant neoplasm of both breasts Problem Diabetic E11.42 Active 082688800 polyneuropathy associated with type 2 diabetes mellitus Problem Diverticulosis K57.30 Active 385968694 large intestine w/o perforation or abscess w/o bleeding Problem 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 Active 844058026 mellitus with diabetic chronic kidney disease Problem Chronic kidney N18.3 Active 532393045 disease, stage 3 (moderate) ALLERGIES No Known Allergies ENCOUNTERS from 1935 to 2020-08-21 Encounter Location Date Provider Diagnosis [facility] [address], [place] [address] IMMUNIZATIONS Vaccine Route Administration Date Status FluAD [...] Start Date End Date Status Frequency, Duration) Prolia 60 MG/ML as directed Subcutaneous Active Dilt-XR 240 MG TAKE 1 CAPSULE BY MOUTH Active EVERY DAY for 90 50+ Material Control Manager Womens Acti ve Diltiazem HCl ER Beads 240 TAKE ONE CAPSULE BY MOUTH Active MG EVERY DAY Oral for 90 days Calcium 1200 3706-4888 1 tablet with a meal 6 Active MG-UNIT days a week Orally Once a day Gabapentin 300 MG TAKE 1 CAPSULE BY MOUTH Active AT BEDTIME. for 90 Eliquis 5 MG TAKE 1 TABLET BY MOUTH Active TWICE A DAY FOR 90 DAYS Oral for 90 days Simvastatin 40 MG TAKE 1 TABLET BY MOUTH AT Active BEDTIME Oral for 90 days Losartan Potassium 100 MG 1 tablet Orally Once a Active day for 90 days Metformin HCl 500 MG TAKE 1 TABLET BY MOUTH Active TWICE A DAY WITH MEALS for 90 Diazepam 5 MG 1 tablet as needed for Active anxiety Orally Once a day Gabapentin 300 MG TAKE 1 CAPSULE BY MOUTH Active AT BEDTIME. Oral for 90 days Aspirin 81 81 MG 1 tablet Orally Once a Active day for 90 days Metformin HCl 500 MG 1 tablet with a meal Active Orally Once a day for 90 days Melatonin Active Chlorthalidone 25 MG 1 tablet in the morning Active with food Orally Once a day Anastrozole 1 MG TAKE 1 TABLET BY MOUTH Active EVERY DAY Oral for 90 days Loratadine 10 MG TAKE 1 TABLET BY MOUTH Active EVERY DAY Oral for 90 days Nitroglycerin 0.4 MG as directed Sublingual Active PROCEDURES No Information RESULTS No Results REASON FOR VISIT [place] MEDICAL (GENERAL) HISTORY Type Description Date Medical History Type 2 diabetes mellitus with hyperglyce usman, without long-term current use of insulin Medical History Mixed hyperlipidemia Medical History Essential hypertension Medical History Age-related osteoporosis without current pathological fracture Medical History Diabetic polyneuropathy associated with type 2 diabetes mellitus Medical History S/p TAVR (transcatheter aortic valve replacement), bioprosthetic Medical History Coronary artery 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 Medical History Chronic obstructive pulmonary disease, unspecified COPD type Medical History History of bladder cancer Medical History History of bilateral mastectomy Medical History History of malignant neoplasm of both br east Medical History Diverticulosis large intestine w/o perfo [...] teeth-dent ures 1953,1993 Surgical History child -torn [id number] 1960 Surgical History ruptured main artery in [...] Medication Name Sig Start Date Stop Date Simvastatin 40 MG TAKE 1 TABLET BY MOUTH AT BEDTIME Oral for 90 days Anastrozole 1 MG TAKE 1 TABLET BY MOUTH EVERY DAY Oral for 90 days Aspirin 81 81 MG 1 tablet Orally Once a day for 90 days Losartan Potassium 100 MG 1 tablet Orally Once a day for 90 days Nitroglycerin 0.4 MG as directed Sublingual Metformin HCl 500 MG 1 tablet with a meal Orally Once a day for 90 days Diltiazem HCl ER Beads 240 MG TAKE ONE CAPSULE BY MOUTH EVERY DAY Oral for 90 days Loratadine 10 MG TAKE 1 TABLET BY MOUTH EVERY DAY Oral for 90 days Diazepam 5 MG 1 tablet as needed for anxiety Orally Once a day Gabapentin 300 MG TAKE 1 CAPSULE BY MOUTH AT BEDTIME. Oral for 90 days Prolia 60 MG/ML as directed Subcutaneous 50+ Material Control Manager Womens Calcium 1200 3616-1393 MG-UNIT 1 tablet with a meal 6 days a week Orally Once a day Eliquis 5 MG TAKE 1 TABLET BY MOUTH TWICE A DAY FOR 90 DAYS Oral for 90 days Next Appt Details Provider Name:Mike Herbert Joya, 2020-11-20 09:40:00 AM, [address], [place], [address], Provider Name:Mike Joya, 2020-11-20 09:40:00 AM, [address], [place], [address], Insurance Providers Payer Name Payer Address Payer Insured Patient Coverage Cover age Phone Name Relationship to Start Date End Date Insured MEDICARE Attn Part B [id number] Alexandra Keller [address] Claims [address] [facility] [id number] [place] [phone] Alexandra Keller [facility] [address] [place] [address]
--- OUTSIDE RECORDS SUMMARY | 2020-09-26 06:08 | XMS REPORT | Continuity of Care Document ---
:1935 Author Organization [facility] t Address [address] [place] [address] Care Team Providers Name Role Phone Asked, [...] moria CANCER 11-09 15:11:11 l BLADDER 00:00: [place] CANCER 00 Active 11/09/2013 [facility] CAD Condition Active 2014-11-22 Mem oria 05-11 15:11:11 l CAD 00:00: [place] 00 Active 05/11/2013 [facility] HEMATURIA, Condition Active 2014-11-22 Memoria HX OF 05-11 15:11:11 l 00:00: [place] HEMATURIA, 00 HX OF Active 05/11/2013 [facility] RENAL Condition Active 2014-11-22 Mem oria INSUFFICIE 9-25 15:11:11 l NCY RENAL 00:00: [place] INSUFFICIE 00 NCY Active 05/11/2013 [facility] BREAST Condition Active 2014-11-22 Mem oria CANCER 3-26 15:11:11 l BREAST 00:00: [place] CANCER 00 Active 11/09/2012 [facility] HYPERTENSI Condition Active 2014-11-22 Memoria ON 15:11:11 l [place] HYPERTENSI ON Active Condition 11/22/2014 [facility] Group HYPERLIPID Condition Active 2014-11-22 Memoria EMIA 15:11:11 l [place] HYPERLIPID EMIA Active Condition 11/22/2014 [facility] C O P D Condition Active 2014-11-22 Me moria 15:11:11 l C O P D [place] Active Condition 11/22/2014 [facility] DIABETES, Condition Active 2014-11-22 Memoria TYPE 2 15:11:11 l [place] DIABETES, TYPE 2 Active Condition 11/22/2014 [facility] VITAMIN D Condition Active 2014-11-22 Memoria DEFICIENCY 15:11:11 l VITAMIN [place] D DEFICIENCY Active Condition 11/22/2014 [facility] LONG-TERM Condition Active 2014-11-22 Memoria (CURRENT) [...] Date Quantity Comments Source Sex Assigned At [facility] ethodist Alcohol intake 2016-04-14 2016-04-14 Current [facility] thodist 00:00:00 00:00:00 non-drinker of alcohol (finding) Smoking Status Start Date Stop Date Source Never smoker Arvind rodriges Medications Ordered Filled Start Stop Current Ordering Indication Dosage Frequency Signature Comments Components Source Medication Medication Date Date Medication? Clinician (SIG) Name Name Losartan Losartan Yes Mike [address] [facility] Potassium Potassium 04-03 Toan Sotelo s - 00:00: Memoria 00 l [facility] Clinics Plavix 2018-08 Yes Ady 1 tablet Nadeem bambi 08-18 Macris l 02:00: [place] 27 simvastatin 2015- Yes 40mg QD Take 40 mg Samuels (ZOCOR) 40 - by mouth Metho di MG tablet 09:34: nightly. st 26 gabapentin Yes 300mg [id number] Take 300 Samuels (NEURONTIN) 8 [id number] mg by Herbert ethodi 300 MG 09:34: 3D mouth 3 st capsule 26 (three) times a day. traMADol Yes 50mg Q6H Take 50 mg Rachel ston (ULTRAM) 50 - by mouth Meth oscar mg tablet 09:34: every 6 st 26 (six) hours as needed for moderate pain. diltiazem Yes 240mg QD Take 240 Rachel ston CD 8-22 mg by Kb (CardIZEM 09:34: mouth st CD) 240 MG 26 daily. 24 hr capsule LORATADINE Yes Take by Abigail ton (CLARITIN 8- mouth. Methodi ORAL) 09:34: st 26 ERGOCALCIFE Yes Take by Rachel cheung ROL, 8- mouth. Methodi VITAMIN D2, 09:34: st (VITAMIN D2 26 ORAL) IBUPROFEN Yes Take by Abigailt on (ADVIL 8- mouth. Methodi ORAL) 09:34: st 26 aspirin 2015- Yes 81mg QD Take 81 mg Abigail ton (ECOTRIN) 8-22 by mouth Method i 81 MG 09:34: daily. st enteric 26 coated tablet ANASTROZOLE Yes Take by Rachel ston ORAL 8-22 mouth. Methodi 09:34: st 26 diazepam 2015- Yes 5mg Q6H Take 5 mg Abigail ton (VALIUM) 5 - by mouth Metho di MG tablet [...] 26 daily with 24 hr breakfast. tablet calcitonin, Yes INHALE 1 [place] salmon, 8-17 (ONE) Methodi (MIACALCIN) 00:00: SOLUTION, s t 200 00 NASAL, unit/actuat DAILY. ion nasal spray tramadol-ac Yes 1{tbl} Q.[id number] Take 1 Samuels etaminophen 04-02 [id number] tablet by Methodi (ULTRACET) 00:00: 3D mouth [...] [place] hydrochloro 6-21 tablet by Met jensen thiazide [...] bambi HYDROCHLORO 3-03 TWICE l THIAZIDE 00:00: [place] 20-25 MG 00 TABS METFORMIN Yes ONE [...] l MG 00:00: ONCE A DAY Yunior [id number] VALIUM 5 MG Yes TAKE ONE Me moria TABS 8-24 TABLET l 00:00: DAILY NEEDED NITROSTAT Yes TAKE Memor ia 0.4 MG SUBL 8-24 DIRECTED l 00:00: AND Yunior 00 NEEDED FOR CHEST PAIN ASPIRIN EC Yes i po qd Nadeem bambi 81 MG TBEC 8-24 l 00:00: [place] 00 NAPROSYN No TAKE 1 Memoria 375 MG TABS 8-24 TABLET BY l 00:00: MOUTH [place] 00 TWICE DAILY NEEDED ASPIRIN EC Yes i po qd Nadeem bambi 81 MG TBEC 8-24 l 00:00: [place] 00 LISINOPRIL- No ONE PO BID Memoria HYDROCHLORO 8-14 l THIAZIDE 00:00: Yunior 20-25 MG 00 TABS LISINOPRIL- No ONE PO BID Memoria HYDROCHLORO 8-14 l THIAZIDE 00:00: Yun[place] 20-25 MG 00 TABS ZOCOR 40 MG Yes one po qhs Memoria TABS 7-03 l 00:00: [place] 00 Olmesartan Olmesartan Yes Mike TAKE [address] [facility] Joya TABLET BY [facility] Outpat[facility] ent Clinics Vital Signs Vital Name Observation Time Observation Value Comments Source Weight 2019-05-24 19:15:00 [facility] [place] Height 2019-05-24 19:15:00 [facility] [place] Diastolic (mm Hg) 2019-05-24 19:15:00 Mem orial [place] Systolic (mm Hg) 2019-05-24 19:15:00 Nadeem moody [place] Weight 2014-11-22 20:11:11 [facility] [place] Systolic (mm Hg) 2014-11-22 20:11:11 Nadeem rial [place] Diastolic (mm Hg) 2014-11-22 20:11:11 Mem orial [place] Heart Rate 2014-11-22 20:11:11 [facility] [place] Weight 2014-05-24 20:07:31 [facility] [place] Systolic (mm Hg) 2014-05-24 20:07:31 Nadeem rial [place] Diastolic (mm Hg) 2014-05-24 20:07:31 Mem orial [place] Heart Rate 2014-05-24 20:07:31 [facility] [place] Weight 2013-11-09 19:23:21 [facility] [place] Systolic (mm Hg) 2013-11-09 19:23:21 Nadeem rial [place] Diastolic (mm Hg) 2013-11-09 19:23:21 Mem orial [place] Heart Rate 2013-11-09 19:23:21 [facility] [place] Weight 2013-05-11 19:51:50 [facility] [place] Systolic (mm Hg) 2013-05-11 19:51:50 Nadeem rial [place] Diastolic (mm Hg) 2013-05-11 19:51:50 Mem orial [place] Heart Rate 2013-05-11 19:51:50 [facility] [place] Weight 2012-10-18 21:02:00 [facility] [place] Systolic (mm Hg) 2012-10-18 21:02:00 Nadeem rial [place] Diastolic (mm Hg) 2012-10-18 21:02:00 Mem orial [place] Heart Rate 2012-10-18 21:02:00 [facility] [place] Weight 2012-04-09 13:43:01 [facility] [place] Systolic (mm Hg) 2012-04-09 13:43:01 Nadeem rial [place] Diastolic (mm Hg) 2012-04-09 13:43:01 Mem orial [place] Heart Rate 2012-04-09 13:43:01 [facility] [place] Weight 2011-04-11 15:41:18 [facility] [place] Systolic (mm Hg) 2011-04-11 15:41:18 Nadeem rial [place] Diastolic (mm Hg) 2011-04-11 15:41:18 Mem orial [place] Heart Rate 2011-04-11 15:41:18 [facility] [place] Weight 2010-10-10 16:41:18 [facility] [place] Height 2010-10-10 16:41:18 [facility] [place] Systolic (mm Hg) 2010-10-10 16:41:18 Nadeem rial [place] Diastolic (mm Hg) 2010-10-10 16:41:18 Mem orial [place] Heart Rate 2010-10-10 16:41:18 [facility] [place] Weight 2010-04-03 15:41:18 [facility] [place] Systolic (mm Hg) 2010-04-03 15:41:18 Nadeem rial [place] Diastolic (mm Hg) 2010-04-03 15:41:18 Mem orial [place] Heart Rate 2010-04-03 15:41:18 [facility] Procedures Procedure Date / Time Performed Performing Clinician [facility] e smoking/tobacco 2013-11-09 19:23:21 [facility] Her vallejo cessation, patient education and counseling Plan of Care Planned Activity Planned Date Details Comments Source Future Scheduled 2020-03-17 INFLUENZA VACCINE [place] [facility] 00:00:00 [code = INFLUENZA VACCINE] Future Scheduled 2000 65+ PNEUMOCOCCAL [facility] 00:00:00 VACCINE (1 of 1 - PPSV23) [code = 65+ PNEUMOCOCCAL VACCINE (1 of 1 - PPSV23)] Future Scheduled 1985 SHINGLES VACCINES (#1) [facility] 00:00:00 [code = SHINGLES VACCINES (#1)] Future Scheduled 1951 COVID-19 VACCINE (1 of H [facility] 00:00:00 2) [code = COVID-19 VACCINE (1 of 2)] Encounters Start End Encounter Admission Attending Care Care Encounter Source Date/Time Date/Time Type Type Clinicians Facility Department ID 2019-06-14 Outpatient [facility] [id number] Me moria 08:22:36 [facility] 2019-05-17 Inpatient [facility] [id number] Mem oria 06:43:00 [facility] 2019-05-13 Outpatient [facility] [id number] Me moria 12:47:12 l [facility] 2020-08-21 2020-08-21 [id number] 2020-08-21 2020-08-21 [facility] [id number] [facility] 2020-07-19 2020-07-19 [facility] [id number] [facility] 2020-07-16 2020-07-16 [facility] [id number] [facility] 2020-05-21 2020-05-21 [facility] [id number] 2020-04-02 2020-04-02 [facility] [id number] [facility] 14:26:00 14:26:00 [facility] l Medicine Outpati ent Clinics 2020-02-20 2020-02-20 [facility] [id number] 10:45:00 10:45:00 [employer] [facility] Medicine l Medicine Outpati ent Clinics 2019-12-09 2019-12-09 [facility] [id number] [address] 10[facility]00:00 10:00:00 [facility] [employer] [facility] l Medicine Outpati ent Clinics 2019-12-09 2019-12-09 [facility] [id number] [address] 09:45:00 09:45:00 [facility] [employer] [facility] Medicine l Medicine Outpati ent Clinics 2019-12-06 2019-12-06 [facility] [id number] 14:22:00 14:22:00 [employer] [facility] l Medicine Outpati ent Clinics 2019-10-12 2019-10-12 [facility] [id number] 14[facility]30:00 14:30:00 [facility] [employer] [facility] Medicine l Medicine Outpati ent Clinics 2019-10-12 2019-10-12 [facility] [id number] 10:00:00 10:00:00 [facility] [employer] [facility] Medicine l Medicine Outpati ent Clinics 2019-06-29 2019-06-29 Outpatient [facility] [id number] Memoria 10:11:00 10:11:00 [facility] 2019-05-24 2019-05-24 Outpatient Ady Arango [id number] [facility] 14:15:00 14:15:00 Kristi Berry MD al Works 2019-04-26 2019-04-26 Outpatient [facility] [id number] Memoria 06:54:00 06:54:00 l [facility] [facility] 2019-04-04 2019-04-04 Outpatient [facility] [id number] Memoria 11:24:00 11:24:00 [facility] 2018-04-06 2018-04-06 [facility] [id number] [facility] 08:00:00 08:00:00 [facility] ent Clinics 2018-03-15 2018-03-15 [facility] [id number] 08:30:00 08:30:00 [facility] Results Test Description Test Time Test Comments Results Result Sourc e Comments Hematology 2013-12-23 34.06 Memorial 22:18:44 Y[facility] Hematology 2013-12-23 11.40 Memorial 22:18:44 [place] Hematology 2013-12-23 205 [facility] 22:18:44 [place] Chemistry 2013-12-18 141 Memorial 11:18:00 [place] Chemistry 2013-12-18 48 [facility] 11:18:00 [facility] Chemistry 2013-12-18 177 [facility] 11:18:00 [place] Chemistry 2013-12-18 58 MG/DL (CALC) Memorial 11:18:00 [place] Hematology 2013-12-02 36.28 Memorial 14:37:02 [place] Hematology 2013-12-02 12.11 Memorial 14:37:02 [place] Hematology 2013-12-02 196 [facility] 14:37:02 [place] Chemistry 2013-11-09 135 Memorial 22:20:44 Y[place] Chemistry 2013-11-09 4.0 Memorial 22:20:44 [place] Chemistry 2013-11-09 22 Memorial 22:20:44 [place] Chemistry 2013-11-09 1.04 Memorial 22:20:44 [place] Chemistry 2013-11-09 9.9 Memorial 22:20:44 Y[place] Chemistry 2013-11-09 17 Memorial 22:20:44 [place] Chemistry 2013-11-09 17 Memorial 22:20:44 [place] Chemistry 2013-02-23 14 (calc) Memorial 07:48:00 [place] Chemistry 2013-02-23 135 Memorial 07:48:00 [place] Chemistry 2013-02-23 4.7 Memorial 07:48:00 [place] Chemistry 2013-02-23 9.3 Memorial 07:48:00 [place] Chemistry 2013-02-23 32 Memorial 07:48:00 [place] Chemistry 2013-02-23 2.25 Memorial 07:48:00 [place] Chemistry 2012-12-10 138 Memorial 16:16:06 Y[place] Chemistry 2012-12-10 4.2 Memorial 16:16:06 [place] Chemistry 2012-12-10 6.9 Memorial 16:16:06 [place] Chemistry 2012-12-10 27 Memorial 16:16:06 [place] Chemistry 2012-12-10 1.04 Memorial 16:16:06 Y[place] Chemistry 2012-12-10 16 Memorial 16:16:06 [place] Chemistry 2012-12-10 16 Memorial 16:16:06 [place] Chemistry 2012-12-10 98 Memorial 16:16:06 Y[place] Hematology 2012-12-10 36.0 Memorial 16:16:06 [place] Hematology 2012-12-10 12.1 Memorial 16:16:06 [place] Hematology 2012-12-10 238 [facility] 16:16:06 [place] Chemistry 2012-11-08 130 Memorial 06:54:00 Y[place] Chemistry 2012-11-08 39 Memorial 06:54:00 [place] Chemistry 2012-11-08 126 Memorial 06:54:00 [place] Chemistry 2012-11-08 66 MG/DL (CALC) Memorial 06:54:00 [place] Chemistry 2012-11-08 19 Memorial 06:54:00 [place] Chemistry 2012-11-08 0.93 Memorial 06:54:00 [place] Chemistry 2012-11-08 NOT APPLICABLE Memorial 06:54:00 (calc) [place] Chemistry 2012-11-08 138 Memorial 06:54:00 Yun[place] Chemistry 2012-11-08 4.7 Memorial 06:54:00 [place] Chemistry 2012-11-08 10.1 Memorial 06:54:00 [place] Chemistry 2012-11-08 4.3 Memorial 06:54:00 Y[facility] Chemistry 2012-11-08 110 Memorial 06:54:00 [place] Chemistry 2012-11-08 14 Memorial 06:54:00 Y[place] Chemistry 2012-11-08 16 Memorial 06:54:00 [place] Chemistry 2012-11-08 7.1 % OF TOTAL Memorial 06:54:00 HGB Y[place] Chemistry 2012-04-10 21 Memorial 11:51:00 [place] Chemistry 2012-04-10 9.7 Memorial 10:19:00 [place] Chemistry 2012-04-10 4.2 Memorial 10:19:00 [place] Chemistry 2012-04-10 124 [facility] 10:19:00 Y[place] Chemistry 2012-04-10 19 Memorial 10:19:00 [place] Chemistry 2012-04-10 135 Memorial 10:19:00 Y[place] Chemistry 2012-04-10 115 [facility] 10:19:00 [place] Chemistry 2012-04-10 44 Memorial 10:19:00 Y[place] Chemistry 2012-04-10 230.0 Memorial 10:19:00 [place] Chemistry 2012-04-10 68 [facility] 10:19:00 [place] Chemistry 2012-04-10 16 Memorial 10:19:00 [place] Chemistry 2012-04-10 0.80 [facility] 10:19:00 Y[place] Chemistry 2012-04-10 10:19:00 Test Item Value Reference Range Interpretation Comme nts BUN/CREAT (test code = BUN/CREAT) 20 1 - [facility] IswldomOavekqgay1660-08-63 10:19:59008Udinzlrf HermannChemistry 2012-04-10 10:19:004.2[facility] PfdzbcaOlivygjgl0537-80-51 15:41:186.3[facility] PgrlpctNuuteerza1787-45-26 16:41:62517Xhgvgftj LeonoyjQoendbtfj7187-47-07 16:41:1850[facility] PkwwzceGnlayprdz9471-21-30 16:41:1898[facility] Y[facility]ior Mfasppbed0943-40-82 16:41:40780Zqfxcavr PrqlnqrZlitvqsep1928-99-46 16:41:184.5 Memorial VnrhcepQvywtpvwu7473-78-90 16:41:1819[facility] 2010-10-10 16:41:1815[facility] HgofzdtYuecqsqpy2336-67-38 16:41:76960Sydnoxio ZxqoqglVuwromnmt8189-41-65 16:41:1815[facility] DsyyvfsHdimkfcst5431-01-86 16:41:180.92[facility]orial XxghjiiFtdyatrxu8038-69-75 16:41:184.4[facility] Jqiojstta3890-98-32 16:41:186.6[facility] RsnmotbXifaixjzx3359-90-39 16:41:1810.3 Memorial IhigctjIlaralgka9696-13-26 15:41:31152Pmhloaje HermannChemistry 2010-04-04 15:41:1848[facility] QyiimaxXrgtihydv0879-72-30 15:41:30664Qspppwzr OwvoqetKvcxercwh0425-49-13 15:41:73210Fxdusdun NbhyeeaKhygwebfn2890-13-94 15:41:186.6[facility] FuoeoyeTpcalfaet8138-17-12 15:41:1816[facility] Zfaegsizk2018-70-27 15:41:1813[facility] VzothbiSqcbsbamq6944-01-91 15:41:89037 Memorial ZscpriiLxcjjspty3977-41-33 15:41:1820[facility] 2010-04-04 15:41:180.91[facility] TyfmnprJxeliffmi0831-29-37 15:41:185.0[facility] DumeyjsPjzfqoava9781-80-49 15:41:189.7[facility] ReeqoijAhtxglfxw4801-97-17 15:41:23459Sjmwycdu KyznsedHztnmzstp8406-52-65 15:41:1854[facility] [place] Zujoyldrw8467-00-04 15:41:1898[facility] FvhxipuWgoihnqoy5659-53-28 15:41:61644 [facility] AalkzjbSomovqwlm8725-43-47 15:41:184.0[facility]ann[facility] 2008-06-06 15:41:1816[facility] CjpfjukLsgwhuhss6469-15-25 15:41:1817[facility] UplkeqoGcdrktnco5767-27-02 15:41:42010Gbwwskum GzzbbdrSjcwgozyo6040-22-27 15:41:1814[facility] KjxbspmCnuquthjw7222-36-71 15:41:180.94[facility] Zrrknocxs3358-53-37 15:41:184.0[facility] QfmhjxvCilensoiu2441-07-42 15:41:189.8 [facility] Y[facility]ior
--- OUTSIDE RECORDS SUMMARY | 2020-09-26 06:08 | XMS REPORT ---
:1935 Author Organization [facility] Address [address] [place], 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), bioprosthetic Problem Peripheral G62.9 Active 19909865 polyneuropathy Problem Type 2 diabetes E11.65 Active 78888469 mellitus with hyperglycemia, without long-term current use of insulin Problem 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 Problem Gastro-esophageal K21.9 Active 677750844 reflux disease without esophagitis Problem Primary M17.12 Active 561621361541993 osteoarthritis of left knee Problem History of Z85.51 Active 181559918 bladder cancer Problem Acute pain of M25.562 Active 20243709 left knee Problem Mixed E78.2 Active 037124556 hyperlipidemia Problem Age-related M81.0 Active 88118933 osteoporosis without current pathological fracture Problem Chronic J44.9 Active 01584339 obstructive pulmonary disease, unspecified COPD type Problem Moderate E44.0 Active 649581549 protein-calorie malnutrition Problem Essential I10 Active 47851853 hypertension Problem Lymphedema of I89.0 Active 242863058 upper extremity Problem Hypocalcemia E83.51 Active 9088278 Problem Generalized F41.1 Active 95314312 anxiety disorder Problem Sciatica of left M54.32 Active 50380285 side Problem 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 Problem Diabetic E11.42 Active 959556624 polyneuropathy associated with type 2 diabetes mellitus Problem Diverticulosis K57.30 Active 043675636 large intestine w/o perforation or abscess w/o bleeding Problem 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 ; Lymphed shruthi of [...] maste ctomy Z90.13 ; Type 2 diabetes [facility] with diabetic chroni c kidney disease E11.22 ; History of sparkle gnant neoplasm of bot h breasts Z85.3 ; History of bladder canc er Z85.51 ; Primar y osteoarthritis of left knee M17.12 ; H istory of fall Z91.81 ; History of vert ebral fracture Z87.81 and Hypocalcemia E8 3.51 IMMUNIZATIONS Vaccine Route Administration Date Status FluAD [...] No Information VITAL SIGNS Height 63 in Aug, Weight 142.4 lbs Aug, Temperature 97.0 degrees Fahrenheit Aug, BMI 25.22 kg/m2 Aug, Oximetry 98 % Aug, Respiratory Rate 17 /min Aug, Blood pressure systolic 138 mm Hg Aug, Blood pressure diastolic 88 mm Hg Aug, MEDICATIONS Medication SIG (Take, Route, Notes Start Date End Date Status Frequency, Duration) Prolia 60 MG/ML as directed Subcutaneous Active Dilt-XR 240 MG TAKE 1 CAPSULE BY MOUTH Active EVERY DAY for 90 50+ [employer] Womens Acti ve Diltiazem HCl ER Beads 240 TAKE ONE CAPSULE BY MOUTH Active MG EVERY DAY Oral for 90 days Calcium 1200 9657-1455 1 tablet with a meal 6 Active [...] RESULTS No Results REASON FOR VISIT 3 month follow up with lab/s MEDICAL (GENERAL) HISTORY Type Description Date Medical History Type 2 diabetes mellitus with hyperglyce usman, without long-term current use of insulin Medical History Mixed hyperlipidemia Medical History Essential hypertension Medical History Age-related osteoporosis without current pathological fracture Medical History Diabetic polyneuropathy associated with type 2 diabetes mellitus Medical History S/p TAVR (transcatheter aortic valve replacement), bioprosthetic Medical History 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 REDUCED mellitus with TO 1 tab.. Education hyperglycemia, given., Diabetes without long-term Education Diabetes current use of is a disorder that insulin (ICD-10 - disrupts the way E11.65) your body uses glucose (sugar). It is [...] may need to be adjusted and/or added. Aug, Moderate Education given. protein-calorie Resources provided. malnutrition (ICD-10 - E44.0) Aug, Essential . Blood pressure Labs faxed to hypertension (ICD-10 taken and lower Card io. - I10) extremity due to lymphedema in upper extremity. [...] go to the ER immediately to address. Aug, Age-related . On Prolia every 6 osteoporosis without months. Tolerating current pathological well. Education fracture (ICD-10 - given. Continue M81.0) vitamin D and calcium supplements. Aug, Diabetic Education given. polyneuropathy Stable with associated with type gabapentin. 2 diabetes mellitus Tolerating well. (ICD-10 - E11.42) Aug, S/p TAVR . Managed by (transcatheter cardiology aortic valve replacement), bioprosthetic (ICD-10 - Z95.3) Aug, Coronary artery . Managed by disease of saxman cardiology. artery of saxman Asymptomatic at this heart with stable time angina pectoris (ICD-10 - I25.118) Aug, Mixed hyperlipidemia . Tolerating well. (ICD-10 - E78.2) Continue current regimen. Side effect discussed. , [...] you have questions, talk to your doctor. Aug, Severe aortic valve stenosis (ICD-10 - I35.0) Aug, Chronic obstructive . Stable. Education pulmonary disease, given. No inhalers. unspecified COPD , COPD Education: type (ICD-10 - This is condition in J44.9) which the airways in the lungs become [...] be required if symptoms do not improve. Aug, Lymphedema of upper . Discussed extremity (ICD-10 - differential I89.0) diagnosis with patient. Education given. Discussed supportive measures for symptomatic relief Aug, Chronic kidney Discussed disease, stage 3 differential (moderate) (ICD-10 - diagnosis with N18.3) patient. Education given. Asymptomatic. If unchanged or worsen will refer to nephrology Aug, Generalized anxiety . Managed by disorder (ICD-10 - cardiology. F41.1) Education given Aug, Proteinuria, unspecified type (ICD-10 - R80.9) Aug, Diverticulosis large . Managed by intestine w/o gastroenterology. perforation or Stable at this time abscess w/o bleeding (ICD-10 - K57.30) Aug, Internal hemorrhoid . Discussed (ICD-10 - K64.8) supportive measures for symptomatic relief Aug, Diaphragmatic hernia . Managed by GI without obstruction or gangrene (ICD-10 - K44.9) Aug, Gastro-esophageal . Managed by GI. reflux disease Education given. without esophagitis (ICD-10 - K21.9) Aug, Anemia, unspecified Discussed DDX. type (ICD-10 - Education given. D64.9) ASymptomatic. Will monitor and repeat. Labs faxed to Onc. Aug, Allergic rhinitis, Stable with unspecified bfkg-mtd-gwhltci seasonality, antihistamine. unspecified trigger Education given. (ICD-10 - J30.9) Aug, History of bilateral mastectomy (ICD-10 - Z90.13) Aug, Type 2 diabetes mellitus with diabetic chronic kidney disease (ICD-10 - E11.22) Aug, History of malignant Seen by oncologist neoplasm of both routine breasts (ICD-10 - Z85.3) Aug, History of bladder . Seen by urologist cancer (ICD-10 - Z85.51) Aug, Primary Managed by Ortho. osteoarthritis of Education given. left knee (ICD-10 - M17.12) Aug, History of fall (ICD-10 - Z91.81) Aug, History of vertebral fracture (ICD-10 - Z87.81) Aug, Hypocalcemia (ICD-10 Discussed DDx. - E83.51) Education given. Asymptomatic. Aug, Other -- Medication reviewed and updated. -- Dietary and Lifestyle modifications addressed regarding diet, exercise and weight managemen t. -- Treatment options, risks and benefits, side effects reviewed in detail. -- Advised on signs/symptoms to monitor and when to call clinic and/or visit the nearest ER. Patient verbalized understanding and agreeable with plan. PLAN OF TREATMENT Medication Medication Name Sig [...] Prolia 60 MG/ML as directed Subcutaneous 50+ [employer] Womens Calcium 1200 6525-6387 MG-UNIT 1 tablet with a meal 6 days a week Orally Once a day Eliquis 5 MG TAKE 1 TABLET BY MOUTH TWICE A DAY FOR 90 DAYS Oral for 90 days Treatment Notes Assessment Notes Clinical Notes Internal hemorrhoid . Discussed supportive measures for symptomatic relief Type 2 diabetes mellitus with CONTROLLED. REDUCED TO 1 tab.. hyperglycemia, without long-term Education given., Diabetes current use of insulin Education Diabetes is a disorder that disrupts [...] calcium supplements. Allergic rhinitis, unspecified Stable with qmma-jmp-wnnkjsl seasonality, unspecified trigger antihistamine. Education given. Diabetic [...] artery disease of . Managed by cardiology. saxman artery of saxman heart Asymptomatic at this time with stable [...] Order Date Lipid Panel With LDL/HDL Ratio 2020-08-21 Microalbumin/Creat Ratio, Random Ur 2020-08-21 Hematopath Consultation, Smear 2020-08-21 Hemoglobin A1c 2020-08-21 Comp. Metabolic Panel (14) (CMP) 2020-08-21 CBC With Differential/Platelet 2020-08-21 Next Appt Details 3 Months + AMW + Labs 1 week before Reas on: Provider Name:Mike Godinez Toan, 2020-11-20 09:40:00 AM, [address], [address], [place], [address], Provider Name:Mike Joya, 2020-11-20 09:40:00 AM, [address], [address], [place], [address], Insurance Providers Payer Name Payer Address Payer Insured Patient Coverage Cover age Phone Name Relationship to Start Date End Date Insured [place] [phone] Alexandra Keller JORDANIAN INS [facility] [address] [place] [address] MEDICARE Attn Part B [id number] Alexandra Keller [address] [facility] [phone]
== END ==
LOC: DS 09:50
PROVIDERS: ATTEND Family Medicine
DX: C50.919 Malignant neoplasm of unspecified site of unspecified female breast (principal)
CPT/HCPCS: 96523; J1642

== ENCOUNTER → 2020-10-29 | Day surgery (SDC) | payer OTHER ==
[2020-10-29 11:14] LABS: Albumin 3.1 g/dL (3.4-5.0); Bilirubin Total 0.2 mg/dL (0.2-1.0); Potassium 3.8 mmol/L (3.5-5.1); Protein, Total 6.3 g/dL (6.4-8.2)
[2020-10-29 13:47] VITALS: BP 150/57; TEMP 97.3; O2SAT 97
[2020-10-29 13:48] VITALS: BMI 25.3
== END ==
LOC: DS 09:57
PROVIDERS: ATTEND Internal Medicine Hematology & Oncology
DX: C50.411 Malignant neoplasm of upper-outer quadrant of right female breast (principal); Z45.2 Encounter for adjustment and management of vascular access device
CPT/HCPCS: 36415; 80053; 96523; J1642

== ENCOUNTER 2022-08-05 10:04 | Day surgery (SDC) | payer OTHER ==
[2022-07-21 12:32] LABS: Absolute Lymphocytes (CBC) 1.5 K/uL (0.7-4.9); Lymphocytes % 16.6 % (15.3-44.8); MCV 80.6 fL (80-100); MPV 10.2 fL (7.6-11.3); RBC Red Blood Cell Count 4.84 M/uL (3.86-4.86)
[2022-07-21 12:40] LABS: Protime INR 1.75
[2022-07-21 12:48] LABS: Potassium 3.7 mmol/L (3.5-5.1)
--- NOTE | 2022-07-21 13:19 | RAD REPORT ---
EXAM DESCRIPTION: Israel Rios And Scarlett (2 Views)07/21/2022 12:36 pm CLINICAL HISTORY: Preop for bladder biopsy COMPARISON: 2018 FINDINGS: The lungs appear clear of acute infiltrate. The heart is normal size. Lungs are mildly hy peraerated A moderate hiatal hernia. Cement has been placed into a vertebral body fracture Central venous line in place. Cement has been placed into thoracic vertebral body fracture. Postsurgi kathy changes involve the chest IMPRESSION: No acute abnormalities displayed
[2022-08-05] MEDS ORDERED: CEFAZOLIN SODIUM 2 GM/VIAL ONE (11:12)
[2022-08-05] MEDS ORDERED: Ringers Lactate 1,000 ML IV ONE (11:12)
[2022-08-05] MEDS ORDERED: LIDOCAINE 1% MPF 5 ML VIAL ONE (11:53)
[2022-08-05] MEDS ORDERED: propofoL 200 MG/20 ML VIAL IV ONE ×2 (11:53→12:54)
[2022-08-05] MEDS ORDERED: FENTANYL CITR 100 MCG/2 ML ONE (11:53)
[2022-08-05] MEDS ORDERED: NS 0.9% VIAL 10 ML ONE (11:57)
[2022-08-05] MEDS ORDERED: KETOROLAC 30 MG/ML INJ ONE (12:22)
[2022-08-05] MEDS ORDERED: ONDANSETRON 4 MG/2 ML VIAL ONE (12:28)
[2022-08-05] MEDS ORDERED: EPHEDRINE SULF 50 MG/ML VIAL ONE (12:28)
--- NOTE | 2022-08-05 13:43 | OP ---
Surgeon: ARIK ARGUETA Preoperative Diagnoses: 1.Recurrent urinary tract infections. 2.Bladder lesion. 3.History of urothelial carcinoma of the bladder. Postoperative Diagnoses: 1.Recurrent urinary tract infections. 2.Bladder lesion. 3.History of urothelial carcinoma of the bladder. Principal Procedures: 1.Cystoscopy. 2.Bladder irrigation. 3.Cold cup biopsies of the bladder lesions. 4.Transurethral resection and fulguration of the bladder lesions. Indication For Procedure: Ms. Keller presented to the Urology Clinic with a history of urothelial car cinoma of the bladder, unknown greater stage, diagnosed in 2012 with papillary cystitis observed in 2 018 on biopsy, but no recurrence of malignancy since 2012. She underwent cystoscopic evaluation that revealed significant intravesical debris consistent with chronic cystitis with plaque-like material on the surface of the mucosa posteriorly and in the left lateral wall, in the setting of moderate vol ume incomplete emptying improved over time, but with recurrent cystitis and UTIs. She was counseled on the need ultimately for tissue evaluation of these plaque-like areas that did not resolve despite extensive antimicrobial therapy and presents today for that evaluation. Procedure In Detail: The patient was consented in the preoperative holding area before being transfe rred to the operative suite where general anesthesia was induced. She was given Ancef 1 g IV antimic robial prophylaxis and pneumo boots were provided for DVT prophylaxis. She was placed in the lithoto my position, padded and secured to the table appropriately. The genitalia were prepped with Hibiclen s and she was draped in standard fashion. Prior to starting the case, there was noted prolapse, whic h was subsequently found to be due to both a rectocele as well as an enterocele with a lesser compone nt of the cystocele. Of note, the patient had prior prolapse surgical changes noted as observed on C T scan performed prior to the procedure today. I then surveyed the bladder and there was significant intravesical debris throughout; so I irrigated the bladder initially attempting to do so with the cy stoscope before having to employ an Ellik evacuator to remove the significant quantity of debris from within. I then utilized the cold cup biopsy forceps to grasp and biopsy the posterior wall area of abnormality and plaque-like material and send this for pathologic analysis. Within the posterior dom e slightly to the left, an additional plaque-like region of material was noted, and there were some p igment changes within the base of this almost suspicious for the appearance of mesh material. This w as similarly biopsied and sent for pathologic analysis using the cold cup biopsy forceps extensively. Then to remove and clean up the remainder of the lesion, I switched for the 26-Greenlandic monopolar res ectoscope and loop and continuing with sterile water, I resected the entirety of these plaque-like ma terials from these lesions. I then fulgurated the entirety of the base of each of these lesions unti l complete hemostasis was achieved. I then again irrigated the bladder in order to remove any remain ing debris before leaving the bladder partially filled and placing an 18-Greenlandic catheter into the josefa dder with ease. Approximately 15 cc of sterile water was placed in the balloon, and the catheter was placed to gravity drainage with a leg bag. She was taken out of the lithotomy position, awakened fr om general anesthesia, transferred to a stretcher, and then transferred to the recovery room in a goo d condition. Complications: None. Discharge Disposition: She should follow up in a couple of weeks interval assessment and to discuss the results of the pathology and imaging performed. Since I have a strong suspicion that this may be due to erosion of some of the prolapse material, especially if an anterior and posterior repair was performed, this may be the source of her recurrent infections and l esion. SIOBHAN/GIANCARLO Voice ID: [id number] Report ID: [id number]
[2022-08-05 13:45] VITALS: O2SAT 96
[2022-08-05] MEDS ORDERED: CODEINE 30MG/APAP 300MG TAB PO PRN (13:56)
[2022-08-05] MEDS ORDERED: PHENAZOPYRIDINE 100MG TAB PO ONE ×2 (13:56→14:35)
[2022-08-05] MEDS ORDERED: HEPARIN 500 UNIT/5 ML SYR IV ONE (14:49)
[2022-08-05 15:28] VITALS: BP 143/49; TEMP 97.4
== END 2022-08-05 15:05 | disposition home or self-care (01) ==
LOC: PRE 10:04 → OR 15:05
PROVIDERS: ATTEND Urology
PROC: 0TBB8ZX Excision of Bladder, Via Natural or Artificial Opening Endoscopic, Diagnostic (ICD-10-PCS; 2022-08-05)
PROC: 0TBB8ZX Excision of Bladder, Via Natural or Artificial Opening Endoscopic, Diagnostic (ICD-10-PCS; principal; 2022-08-05 11:30)
DX: N39.0 Urinary tract infection, site not specified (principal); N32.9 Bladder disorder, unspecified; Z85.51 Personal history of malignant neoplasm of bladder
CPT/HCPCS: 52204; 52234; 87088; 85025; 87086; 80048; 36415; 88312; 85610; 82947; 88305; 87077; 87186; 71046; J2704 ×2; J2001; J3010; A4216; J1642 ×2; J7120; J2405

== ENCOUNTER 2022-08-12 10:01 | Emergency (ER) | payer OTHER ==
--- OUTSIDE RECORDS SUMMARY | 2022-08-12 10:14 | XMS REPORT | Continuity of Care Document ---
:1935 Author Organization [facility] t Address 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 of skin of St extremity left upper Jean es extremity, Medica l including Center shoulder Cancer of Cancer of Problem Com mon skin of skin of Spirit left upper left upper - CHI arm arm [facility] [id number] Acute pain Problem Com mon of left Spirit knee - [facility]I [facility] [id number] Primary Problem Comm on osteoarthr Spirit itis of - CHI left knee [facility] [id number] Lymphedema Problem Co mmon of upper Spirit extremity - [facility] [id number] Sciatica Problem Commo n of left Spirit side - CHI [facility] [id number] Personal Problem Comm on history of Spirit bladder - CHI cancer [facility] [id number] Cystitis Problem Commo n Spirit - [facility] [id number] Gross Problem Common hematuria Spirit - CH[facility] [id number] Lower Problem Common urinary Spirit tract - [facility] [id number] Type 2 Problem Common diabetes Spirit mellitus - CHI with [facility], Medical without Center long-term current use of insulin [id number] Diverticul Problem Co mmon osis large Spirit intestine - CHI w/o perforatio [facility] or Medical abscess Center w/o bleeding [id number] Diabetic Problem Comm on polyneurop Spirit athy - CHI associated St with type 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 replacemen Medica l t), Center bioprosthe tic [id number] Chronic Problem Common obstructiv Spirit e - CHI pulmonary St disease, [facility] d COPD Center type [id number] Chronic Problem Commo n kidney Spirit disease, - CHI stage 3 [facility] [id number] History of Problem Co mmon bilateral Spirit mastectomy - [facility] Severe Severe Problem Common aortic aortic Spirit valve valve - CHI stenosis stenosis [facility] [id number] History of Problem Co mmon malignant Spirit neoplasm - CHI of both [facility] [id number] Gastro-eso Problem Co mmon phageal Spirit reflux - CHI disease [facility] esophagiti Medica [facility] [id number] Hypocalcem Problem Comm on ia Spirit - [facility] [id number] Moderate Problem Comm on protein-ca [facility] jackson - [facility] malnutriti [facility] 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 Social History Social Habit Start Date Stop Date Quantity Comments Source History of Common Spirit - Tobacco Use [facility] Alcohol intake 2016-04-14 2016-04-14 Current [facility] 00:00:00 00:00:00 non-drinker of Hospital alcohol (finding) Sex Assigned At [birth year] [facility] 00:[facility]:00 [facility]:00 Hospital Smoking Status Start Date Stop Date Source Former Smoker 2022-06-25 00:00:00 2022-06-25 00:00:00 Common S pirit - [facility] Ce nter Never smoked tobacco [facility] Medications Ordered Filled Start Stop Current Ordering Indication Dosage Frequency Signature Comments Components Source Medication Medication Date Date Medication? Clinician (SIG) Name Name Cephalexin Cephalexin 2021-08- Cephalexin 500 MG 500 MG 0-30 - 500 MG 00:00: 00:00 00 :00 Cephalexin Cephalexin 2021-08- No Cephalexin 500 MG 500 MG 0-30 - 500 MG 00:00: 00:00 00 :00 methylPREDN methylPREDN 2021- No QD methylPRED ISolone 4 ISolone 4 12-16 05- NISolone 4 MG MG 00:00: 00:00 MG 00 :00 Cephalexin Cephalexin 2021- No 1{capsu TID Cephalexin 250 MG 250 MG 12-02 le} 250 MG 00:00: 00:00 00 :00 Uroxatral Uroxatral 2020- No 1{table Uroxatral 10 MG 10 MG 11-28 t} 10 MG 00:00: 00:00 00 :00 Losartan Losartan Yes Mike 1 tablet Common Potassium Potassium 04-03 Joya Spir it 00:00: - [facility]I 00 [facility] Plavix 2018-1 Yes Ady 1 tablet Nadeem bambi 08-18 Macris l 02:00: [place] 27 simvastatin 2015- Yes 40mg QD Take 40 mg [facility] (ZOCOR) 40 - by mouth st MG tablet 09:34: nightly. Hosp tony 26 l gabapentin Yes 300mg Q.[id number] Take 300 [facility] (NEURONTIN) 8- [id number] mg by s t 300 MG 09:34: 3D mouth 3 Hospita capsule 26 (three) l times a day. traMADol Yes 50mg Q6H Take 50 mg Met hodi (ULTRAM) 50 8-[address] mg tablet 09:34: every 6 Hospi ta 26 (six) l hours as needed for moderate pain. diltiazem Yes 240mg QD Take 240 Met hodi CD 8-[address] (CardIZEM 09:34: mouth Hospita CD) 240 MG 26 daily. l 24 hr capsule LORATADINE Yes Take by Meth oscar (CLARITIN 8- mouth. st ORAL) 09:34: Hospita 26 l ERGOCALCIFE Yes Take by Met hodi ROL, 8- mouth. st VITAMIN D2, 09:34: Hospit a (VITAMIN D2 26 l ORAL) IBUPROFEN Yes Take by Metho di (ADVIL 8- mouth. st ORAL) 09:34: Hospita 26 l aspirin Yes 81mg QD Take 81 mg Meth oscar (ECOTRIN) 8- by mouth st 81 MG 09:34: daily. Hospita enteric 26 l coated tablet ANASTROZOLE Yes Take by Met hodi ORAL 8- mouth. st 09:34: Hospita 26 l diazepam Yes 5mg Q6H Take 5 mg Meth oscar (VALIUM) 5 8- by mouth st MG tablet 09:34: every 6 Hospi ta 26 (six) l hours as needed for anxiety. lisinopril Yes 20mg QD Take 20 mg M ethodi (PRINIVIL,Z 04-[address] ESTRIL) 20 09:34: daily. Hospi ta MG tablet 26 l metFORMIN Yes 500mg QD Take 500 Met hodi XR 8-[address] (GLUCOPHATE 09:34: mouth Hospi ta -XR) 500 MG 26 daily with l 24 hr breakfast. tablet calcitonin, Yes INHALE 1 Me thodi salmon, 04-02 (ONE) st (MIACALCIN) 00:00: SOLUTION, H ospita 200 00 NASAL, l unit/actuat DAILY. ion nasal spray tramadol-ac Yes 1{tbl} Q.[id number] Take 1 [facility] etaminophen 04-[id number] (ULTRACET) 00:00: 3D mouth 3 Hosp tony 37.5-325 mg 00 (three) l per tablet times a day as needed. anastrozole Yes 1mg QD Take 1 mg M ethodi (ARIMIDEX) 03-[address] 1 mg chemo 00:00: once Hospita tablet 00 daily. l naproxen Yes 500mg Q.5D Take 500 Meth oscar (NAPROSYN) 7-[address] 500 MG 00:00: mouth 2 Hospita tablet 00 (two) l times a day as needed. simvastatin Yes TAKE 1 Meth oscar (ZOCOR) 40 6-[address] MG tablet 00:00: MOUTH AT Hosp tony 00 BEDTIME. l lisinopril- 2016-0 Yes 1{tbl} Q.5D Take 1 Me thodi hydrochloro 6-[address] thiazide 00:00: mouth 2 Hospit a (PRINZIDE,Z 00 (two) l ESTORETIC) times a 20-25 mg day. per tablet Olmesartan Olmesartan Yes Mike TAKE 1 Common Medoxomil Medoxomil Joya TABLET BY Spirit MOUTH - CHI EVERY DAY [facility] Feraheme Feraheme No Feraheme 510 MG/17ML 510 MG/17ML 510 MG/17ML Chlorthalid Chlorthalid No 1{table QD Chlorthali one 25 MG one 25 MG t_in_th done 25 MG e_morni ng_with _food} Prolia 60 Prolia 60 No Prolia 60 MG/ML MG/ML MG/ML dilTIAZem dilTIAZem No dilTIAZem HCl ER HCl ER HCl ER Beads 240 Beads 240 Beads 240 MG MG MG Aspirin 81 Aspirin 81 No 1{table QD Aspirin 81 81 MG 81 MG t} 81 MG Nitroglycer Nitroglycer No Nitroglyce in 0.4 MG in 0.4 MG rin 0.4 MG Anastrozole Anastrozole No Anastrozol 1 MG 1 MG e 1 MG Loratadine Loratadine No Loratadine 10 MG 10 MG 10 MG Simvastatin Simvastatin No Simvastati 40 MG 40 MG n 40 MG Anastrozole Anastrozole No Anastrozol 1 MG 1 MG e 1 MG Shingrix 50 Shingrix 50 No .5{ml} Shingrix MCG/0.5ML MCG/0.5ML 50 MCG/0.5ML 50+ 50+ No 50+ Manager Of Planning Manager Of Planning Manager Of Planning Womens Womens Womens Gabapentin Gabapentin No Gabapentin 300 MG 300 MG 300 MG Diazepam 5 Diazepam 5 No QD Diazepam 5 MG MG MG Eliquis 5 Eliquis 5 No Eliquis 5 MG MG MG Dilt-XR 240 Dilt-XR 240 No Dilt-XR MG MG 240 MG Losartan Losartan No 1{table QD Losartan Potassium Potassium t} Potassium 100 MG 100 MG 100 MG metFORMIN metFORMIN No metFORMIN HCl 500 MG HCl 500 MG HCl 500 MG Gabapentin Gabapentin No Gabapentin 300 MG 300 MG 300 MG Calcium Calcium No QD Calcium 1200 1200 1200 1675-7654 2924-8459 7350-3779 MG-UNIT MG-UNIT MG-UNIT Melatonin Melatonin No Melatonin Shingrix 50 Shingrix 50 No .5{ml} Shingrix MCG/0.5ML MCG/0.5ML 50 MCG/0.5ML metFORMIN metFORMIN No metFORMIN HCl 500 MG HCl 500 MG HCl 500 MG Diazepam 5 Diazepam 5 No QD Diazepam 5 MG MG MG Feraheme Feraheme No Feraheme 510 MG/17ML 510 MG/17ML 510 MG/17ML dilTIAZem dilTIAZem No dilTIAZem HCl ER HCl ER HCl ER Beads 240 Beads 240 Beads 240 MG MG MG Anastrozole Anastrozole No Anastrozol 1 MG 1 MG e 1 MG Gabapentin Gabapentin No Gabapentin 300 MG 300 MG 300 MG Prolia 60 Prolia 60 No Prolia 60 MG/ML MG/ML MG/ML Nitroglycer Nitroglycer No Nitroglyce in 0.4 MG in 0.4 MG rin 0.4 MG Eliquis 5 Eliquis 5 No Eliquis 5 MG MG MG Melatonin Melatonin No Melatonin Chlorthalid Chlorthalid No 1{table QD Chlorthali one 25 MG one 25 MG t_in_th done 25 MG e_morni ng_with _food} Loratadine Loratadine No Loratadine 10 MG 10 MG 10 MG Dilt-XR 240 Dilt-XR 240 No Dilt-XR MG MG 240 MG Simvastatin Simvastatin No Simvastati 40 MG 40 MG n 40 MG 50+ 50+ No 50+ Manager Of Planning Manager Of Planning Manager Of Planning Womens Womens Womens Anastrozole Anastrozole No Anastrozol 1 MG 1 MG e 1 MG Losartan Losartan No 1{table QD Losartan Potassium Potassium t} Potassium 100 MG 100 MG 100 MG Calcium Calcium No QD Calcium 1200 1200 1200 2466-6287 7078-1398 0483-8057 MG-UNIT MG-UNIT MG-UNIT Aspirin 81 Aspirin 81 No 1{table QD Aspirin 81 81 MG 81 MG t} 81 MG Gabapentin Gabapentin No Gabapentin 300 MG 300 MG 300 MG Shingrix 50 Shingrix 50 No .5{ml} Shingrix MCG/0.5ML MCG/0.5ML 50 MCG/0.5ML Aspirin 81 Aspirin 81 No 1{table QD Aspirin 81 81 MG 81 MG t} 81 MG dilTIAZem dilTIAZem No dilTIAZem HCl ER HCl ER HCl ER Beads 240 Beads 240 Beads 240 MG MG MG Eliquis 5 Eliquis 5 No Eliquis 5 MG MG MG Prolia 60 Prolia 60 No Prolia 60 MG/ML MG/ML MG/ML Simvastatin Simvastatin No Simvastati 40 MG 40 MG n 40 MG Diazepam 5 Diazepam 5 No QD Diazepam 5 MG MG MG Anastrozole Anastrozole No Anastrozol 1 MG 1 MG e 1 MG Chlorthalid Chlorthalid No 1{table QD Chlorthali one 25 MG one 25 MG t_in_th done 25 MG e_morni ng_with _food} Feraheme Feraheme No Feraheme 510 MG/17ML 510 MG/17ML 510 MG/17ML Calcium Calcium No QD Calcium 1200 1200 1200 7077-2397 4674-4162 0016-9675 MG-UNIT MG-UNIT MG-UNIT Dilt-XR 240 Dilt-XR 240 No Dilt-XR MG MG 240 MG Melatonin Melatonin No Melatonin 50+ 50+ No 50+ Manager Of Planning Manager Of Planning Manager Of Planning Womens Womens Womens Anastrozole Anastrozole No Anastrozol 1 MG 1 MG e 1 MG Losartan Losartan No 1{table QD Losartan Potassium Potassium t} Potassium 100 MG 100 MG 100 MG Gabapentin Gabapentin No Gabapentin 300 MG 300 MG 300 MG Nitroglycer Nitroglycer No Nitroglyce in 0.4 MG in 0.4 MG rin 0.4 MG Loratadine Loratadine No Loratadine 10 MG 10 MG 10 MG Gabapentin Gabapentin No Gabapentin 300 MG 300 MG 300 MG metFORMIN metFORMIN No metFORMIN HCl 500 MG HCl 500 MG HCl 500 MG Gabapentin Gabapentin No Gabapentin 300 MG 300 MG 300 MG Prolia 60 Prolia 60 No Prolia 60 MG/ML MG/ML MG/ML Diazepam 5 Diazepam 5 No QD Diazepam 5 MG MG MG Eliquis 5 Eliquis 5 No Eliquis 5 MG MG MG dilTIAZem dilTIAZem No dilTIAZem HCl ER HCl ER HCl ER Beads 240 Beads 240 Beads 240 MG MG MG Simvastatin Simvastatin No Simvastati 40 MG 40 MG n 40 MG Nitroglycer Nitroglycer No Nitroglyce in 0.4 MG in 0.4 MG rin 0.4 MG Dilt-XR 240 Dilt-XR 240 No Dilt-XR MG MG 240 MG Chlorthalid Chlorthalid No 1{table QD Chlorthali one 25 MG one 25 MG t_in_th done 25 MG e_morni ng_with _food} Feraheme Feraheme No Feraheme 510 MG/17ML 510 MG/17ML 510 MG/17ML 50+ 50+ No 50+ Manager Of Planning Manager Of Planning Manager Of Planning Womens Womens Womens Calcium Calcium No QD Calcium 1200 1200 1200 1043-9163 9482-1386 2061-4481 MG-UNIT MG-UNIT MG-UNIT Melatonin Melatonin No Melatonin Aspirin 81 Aspirin 81 No 1{table QD Aspirin 81 81 MG 81 MG t} 81 MG Losartan Losartan No 1{table QD Losartan Potassium Potassium t} Potassium 100 MG 100 MG 100 MG metFORMIN metFORMIN No metFORMIN HCl 500 MG HCl 500 MG HCl 500 MG Loratadine Loratadine No Loratadine 10 MG 10 MG 10 MG Anastrozole Anastrozole No Anastrozol 1 MG 1 MG e 1 MG Shingrix 50 Shingrix 50 No .5{ml} Shingrix MCG/0.5ML MCG/0.5ML 50 MCG/0.5ML 50+ 50+ No 50+ Manager Of Planning Manager Of Planning Manager Of Planning Womens Womens Womens Prolia 60 Prolia 60 No Prolia 60 MG/ML MG/ML MG/ML Claritin 10 Claritin 10 No 1{table QD Claritin MG MG t} 10 MG dilTIAZem dilTIAZem No dilTIAZem HCl ER HCl ER HCl ER Beads 240 Beads 240 Beads 240 MG MG MG Anastrozole Anastrozole No Anastrozol 1 MG 1 MG e 1 MG Losartan Losartan No 1{table QD Losartan Potassium Potassium t} Potassium 100 MG 100 MG 100 MG metFORMIN metFORMIN No metFORMIN HCl 500 MG HCl 500 MG HCl 500 MG Aspirin 81 Aspirin 81 No 1{table QD Aspirin 81 81 MG 81 MG t} 81 MG Dilt-XR 240 Dilt-XR 240 No Dilt-XR MG MG 240 MG Shingrix 50 Shingrix 50 No .5{ml} Shingrix MCG/0.5ML MCG/0.5ML 50 MCG/0.5ML Nitroglycer Nitroglycer No Nitroglyce in 0.4 MG in 0.4 MG rin 0.4 MG Simvastatin Simvastatin No Simvastati 40 MG 40 MG n 40 MG Gabapentin Gabapentin No Gabapentin 300 MG 300 MG 300 MG Diazepam 5 Diazepam 5 No QD Diazepam 5 MG MG MG Eliquis 5 Eliquis 5 No Eliquis 5 MG MG MG 50+ 50+ No 50+ Manager Of Planning Manager Of Planning Manager Of Planning Womens Womens Womens Eliquis 5 Eliquis 5 No Eliquis 5 MG MG MG Prolia 60 Prolia 60 No Prolia 60 MG/ML MG/ML MG/ML Claritin 10 Claritin 10 No 1{table QD Claritin MG MG t} 10 MG dilTIAZem dilTIAZem No dilTIAZem HCl ER HCl ER HCl ER Beads 240 Beads 240 Beads 240 MG MG MG Anastrozole Anastrozole No Anastrozol 1 MG 1 MG e 1 MG Losartan Losartan No 1{table QD Losartan Potassium Potassium t} Potassium 100 MG 100 MG 100 MG metFORMIN metFORMIN No metFORMIN HCl 500 MG HCl 500 MG HCl 500 MG Aspirin 81 Aspirin 81 No 1{table QD Aspirin 81 81 MG 81 MG t} 81 MG Dilt-XR 240 Dilt-XR 240 No Dilt-XR MG MG 240 MG Shingrix 50 Shingrix 50 No .5{ml} Shingrix MCG/0.5ML MCG/0.5ML 50 MCG/0.5ML Nitroglycer Nitroglycer No Nitroglyce in 0.4 MG in 0.4 MG rin 0.4 MG Simvastatin Simvastatin No Simvastati 40 MG 40 MG n 40 MG Gabapentin Gabapentin No Gabapentin 300 MG 300 MG 300 MG Diazepam 5 Diazepam 5 No QD Diazepam 5 MG MG MG Aspirin 81 Aspirin 81 No 1{table QD Aspirin 81 81 MG 81 MG t} 81 MG Losartan Losartan No 1{table QD Losartan Potassium Potassium t} Potassium 100 MG 100 MG 100 MG Simvastatin Simvastatin No Simvastati 40 MG 40 MG n 40 MG Gabapentin Gabapentin No Gabapentin 300 MG 300 MG 300 MG Anastrozole Anastrozole No Anastrozol 1 MG 1 MG e 1 MG Prolia 60 Prolia 60 No Prolia 60 MG/ML MG/ML MG/ML Nitroglycer Nitroglycer No Nitroglyce in 0.4 MG in 0.4 MG rin 0.4 MG Eliquis 5 Eliquis 5 No Eliquis 5 MG MG MG Diazepam 5 Diazepam 5 No QD Diazepam 5 MG MG MG 50+ 50+ No 50+ Manager Of Planning Manager Of Planning Manager Of Planning Womens Womens Womens dilTIAZem dilTIAZem No dilTIAZem HCl ER HCl ER HCl ER Beads 240 Beads 240 Beads 240 MG MG MG Loratadine Loratadine No Loratadine 10 MG 10 MG 10 MG Calcium Calcium No QD Calcium 1200 1200 1200 2669-9662 8397-2031 9740-1068 MG-UNIT MG-UNIT MG-UNIT Aspirin 81 Aspirin 81 No 1{table QD Aspirin 81 81 MG 81 MG t} 81 MG Losartan Losartan No 1{table QD Losartan Potassium Potassium t} Potassium 100 MG 100 MG 100 MG Simvastatin Simvastatin No Simvastati 40 MG 40 MG n 40 MG Gabapentin Gabapentin No Gabapentin 300 MG 300 MG 300 MG Anastrozole Anastrozole No Anastrozol 1 MG 1 MG e 1 MG Prolia 60 Prolia 60 No Prolia 60 MG/ML MG/ML MG/ML Nitroglycer Nitroglycer No Nitroglyce in 0.4 MG in 0.4 MG rin 0.4 MG Eliquis 5 Eliquis 5 No Eliquis 5 MG MG MG Diazepam 5 Diazepam 5 No QD Diazepam 5 MG MG MG 50+ 50+ No 50+ Manager Of Planning Manager Of Planning Manager Of Planning Womens Womens Womens dilTIAZem dilTIAZem No dilTIAZem HCl ER HCl ER HCl ER Beads 240 Beads 240 Beads 240 MG MG MG Loratadine Loratadine No Loratadine 10 MG 10 MG 10 MG Calcium Calcium No QD Calcium 1200 1200 1200 8515-7947 0288-4087 6773-0142 MG-UNIT MG-UNIT MG-UNIT Aspirin 81 Aspirin 81 No 1{table QD Aspirin 81 81 MG 81 MG t} 81 MG Losartan Losartan No 1{table QD Losartan Potassium Potassium t} Potassium 100 MG 100 MG 100 MG Simvastatin Simvastatin No Simvastati 40 MG 40 MG n 40 MG Gabapentin Gabapentin No Gabapentin 300 MG 300 MG 300 MG Anastrozole Anastrozole No Anastrozol 1 MG 1 MG e 1 MG Prolia 60 Prolia 60 No Prolia 60 MG/ML MG/ML MG/ML Nitroglycer Nitroglycer No Nitroglyce in 0.4 MG in 0.4 MG rin 0.4 MG Eliquis 5 Eliquis 5 No Eliquis 5 MG MG MG Diazepam 5 Diazepam 5 No QD Diazepam 5 MG MG MG 50+ 50+ No 50+ Manager Of Planning Manager Of Planning Manager Of Planning Womens Womens Womens dilTIAZem dilTIAZem No dilTIAZem HCl ER HCl ER HCl ER Beads 240 Beads 240 Beads 240 MG MG MG Loratadine Loratadine No Loratadine 10 MG 10 MG 10 MG Calcium Calcium No QD Calcium 1200 1200 1200 1674-4265 0783-3620 7438-5703 MG-UNIT MG-UNIT MG-UNIT dilTIAZem dilTIAZem No dilTIAZem HCl ER HCl ER HCl ER Beads 240 Beads 240 Beads 240 MG MG MG Calcium Calcium No QD Calcium 1200 1200 1200 1250-6652 7811-2848 3993-3596 MG-UNIT MG-UNIT MG-UNIT Prolia 60 Prolia 60 No Prolia 60 MG/ML MG/ML MG/ML Nitroglycer Nitroglycer No Nitroglyce in 0.4 MG in 0.4 MG rin 0.4 MG 50+ 50+ No 50+ Manager Of Planning Manager Of Planning Manager Of Planning Womens Womens Womens Gabapentin Gabapentin No Gabapentin 300 MG 300 MG 300 MG Diazepam 5 Diazepam 5 No QD Diazepam 5 MG MG MG Eliquis 5 Eliquis 5 No Eliquis 5 MG MG MG Loratadine Loratadine No Loratadine 10 MG 10 MG 10 MG Anastrozole Anastrozole No Anastrozol 1 MG 1 MG e 1 MG Losartan Losartan No 1{table QD Losartan Potassium Potassium t} Potassium 100 MG 100 MG 100 MG Aspirin 81 Aspirin 81 No 1{table QD Aspirin 81 81 MG 81 MG t} 81 MG Simvastatin Simvastatin No Simvastati 40 MG 40 MG n 40 MG dilTIAZem dilTIAZem No dilTIAZem HCl ER HCl ER HCl ER Beads 240 Beads 240 Beads 240 MG MG MG Calcium Calcium No QD Calcium 1200 1200 1200 7153-9723 3757-8341 6084-7742 MG-UNIT MG-UNIT MG-UNIT Prolia 60 Prolia 60 No Prolia 60 MG/ML MG/ML MG/ML Nitroglycer Nitroglycer No Nitroglyce in 0.4 MG in 0.4 MG rin 0.4 MG 50+ 50+ No 50+ Manager Of Planning Manager Of Planning Manager Of Planning Womens Womens Womens Gabapentin Gabapentin No Gabapentin 300 MG 300 MG 300 MG Diazepam 5 Diazepam 5 No QD Diazepam 5 MG MG MG Eliquis 5 Eliquis 5 No Eliquis 5 MG MG MG Loratadine Loratadine No Loratadine 10 MG 10 MG 10 MG Anastrozole Anastrozole No Anastrozol 1 MG 1 MG e 1 MG Losartan Losartan No 1{table QD Losartan Potassium Potassium t} Potassium 100 MG 100 MG 100 MG Aspirin 81 Aspirin 81 No 1{table QD Aspirin 81 81 MG 81 MG t} 81 MG Simvastatin Simvastatin No Simvastati 40 MG 40 MG n 40 MG dilTIAZem dilTIAZem No dilTIAZem HCl ER HCl ER HCl ER Beads 240 Beads 240 Beads 240 MG MG MG Calcium Calcium No QD Calcium 1200 1200 1200 5453-5462 2152-7320 4033-7811 MG-UNIT MG-UNIT MG-UNIT Prolia 60 Prolia 60 No Prolia 60 MG/ML MG/ML MG/ML Nitroglycer Nitroglycer No Nitroglyce in 0.4 MG in 0.4 MG rin 0.4 MG 50+ 50+ No 50+ Manager Of Planning Manager Of Planning Manager Of Planning Womens Womens Womens Gabapentin Gabapentin No Gabapentin 300 MG 300 MG 300 MG Diazepam 5 Diazepam 5 No QD Diazepam 5 MG MG MG Eliquis 5 Eliquis 5 No Eliquis 5 MG MG MG Loratadine Loratadine No Loratadine 10 MG 10 MG 10 MG Anastrozole Anastrozole No Anastrozol 1 MG 1 MG e 1 MG Losartan Losartan No 1{table QD Losartan Potassium Potassium t} Potassium 100 MG 100 MG 100 MG Aspirin 81 Aspirin 81 No 1{table QD Aspirin 81 81 MG 81 MG t} 81 MG Simvastatin Simvastatin No Simvastati 40 MG 40 MG n 40 MG Aspirin 81 Aspirin 81 No 1{table QD Aspirin 81 81 MG 81 MG t} 81 MG dilTIAZem dilTIAZem No dilTIAZem HCl ER HCl ER HCl ER Beads 240 Beads 240 Beads 240 MG MG MG Gabapentin Gabapentin No Gabapentin 300 MG 300 MG 300 MG Losartan Losartan No 1{table QD Losartan Potassium Potassium t} Potassium 100 MG 100 MG 100 MG Loratadine Loratadine No Loratadine 10 MG 10 MG 10 MG Eliquis 5 Eliquis 5 No Eliquis 5 MG MG MG Diazepam 5 Diazepam 5 No QD Diazepam 5 MG MG MG Simvastatin Simvastatin No Simvastati 40 MG 40 MG n 40 MG 50+ 50+ No 50+ Manager Of Planning Manager Of Planning Manager Of Planning Womens Womens Womens Nitroglycer Nitroglycer No Nitroglyce in 0.4 MG in 0.4 MG rin 0.4 MG Prolia 60 Prolia 60 No Prolia 60 MG/ML MG/ML MG/ML Anastrozole Anastrozole No Anastrozol 1 MG 1 MG e 1 MG Vitamin D3 Vitamin D3 No Vitamin D3 Calcium Calcium No QD Calcium 1200 1200 1200 2027-4027 9469-9684 9856-7424 MG-UNIT MG-UNIT MG-UNIT Diazepam 5 Diazepam 5 No QD Diazepam 5 MG MG MG Simvastatin Simvastatin No Simvastati 40 MG 40 MG n 40 MG Gabapentin Gabapentin No Gabapentin 300 MG 300 MG 300 MG Losartan Losartan No 1{table QD Losartan Potassium Potassium t} Potassium 100 MG 100 MG 100 MG Loratadine Loratadine No Loratadine 10 MG 10 MG 10 MG Prolia 60 Prolia 60 No Prolia 60 MG/ML MG/ML MG/ML Eliquis 5 Eliquis 5 No Eliquis 5 MG MG MG Vitamin D3 Vitamin D3 No Vitamin D3 Calcium Calcium No QD Calcium 1200 1200 1200 [id number] [id number] MG-UNIT MG-UNIT MG-UNIT dilTIAZem dilTIAZem No dilTIAZem HCl ER HCl ER HCl ER Beads 240 Beads 240 Beads 240 MG MG MG 50+ 50+ No 50+ Manager Of Planning Manager Of Planning Manager Of Planning Womens Womens Womens Anastrozole Anastrozole No Anastrozol 1 MG 1 MG e 1 MG Nitroglycer Nitroglycer No Nitroglyce in 0.4 MG in 0.4 MG rin 0.4 MG Aspirin 81 Aspirin 81 No 1{table QD Aspirin 81 81 MG 81 MG t} 81 MG Vitamin D3 Vitamin D3 No Vitamin D3 Gabapentin Gabapentin No Gabapentin 300 MG 300 MG 300 MG Anastrozole Anastrozole No Anastrozol 1 MG 1 MG e 1 MG Calcium Calcium No QD Calcium 1200 1200 1200 [id number] [phone] MG-UNIT MG-UNIT MG-UNIT Prolia 60 Prolia 60 No Prolia 60 MG/ML MG/ML MG/ML Eliquis 5 Eliquis 5 No Eliquis 5 MG MG MG Nitroglycer Nitroglycer No Nitroglyce in 0.4 MG in 0.4 MG rin 0.4 MG Gabapentin Gabapentin No Gabapentin 300 MG 300 MG 300 MG Simvastatin Simvastatin No Simvastati 40 MG 40 MG n 40 MG 50+ 50+ No 50+ Manager Of Planning Manager Of Planning Manager Of Planning Womens Womens Womens Diazepam 5 Diazepam 5 No QD Diazepam 5 MG MG MG Loratadine Loratadine No Loratadine 10 MG 10 MG 10 MG Losartan Losartan No 1{table QD Losartan Potassium Potassium t} Potassium 100 MG 100 MG 100 MG dilTIAZem dilTIAZem No dilTIAZem HCl ER HCl ER HCl ER Beads 240 Beads 240 Beads 240 MG MG MG Aspirin 81 Aspirin 81 No 1{table QD Aspirin 81 81 MG 81 MG t} 81 MG Chlorthalid Chlorthalid No 1{table QD Chlorthali one 25 MG one 25 MG t_in_th done 25 MG e_morni ng_with _food} Vitamin D3 Vitamin D3 No Vitamin D3 Gabapentin Gabapentin No Gabapentin 300 MG 300 MG 300 MG Anastrozole Anastrozole No Anastrozol 1 MG 1 MG e 1 MG Calcium Calcium No QD Calcium 1200 1200 1200 [id number] [id number] MG-UNIT MG-UNIT MG-UNIT Prolia 60 Prolia 60 No Prolia 60 MG/ML MG/ML MG/ML Eliquis 5 Eliquis 5 No Eliquis 5 MG MG MG Nitroglycer Nitroglycer No Nitroglyce in 0.4 MG in 0.4 MG rin 0.4 MG Gabapentin Gabapentin No Gabapentin 300 MG 300 MG 300 MG Simvastatin Simvastatin No Simvastati 40 MG 40 MG n 40 MG 50+ 50+ No 50+ Manager Of Planning Manager Of Planning Manager Of Planning Womens Womens Womens Diazepam 5 Diazepam 5 No QD Diazepam 5 MG MG MG Loratadine Loratadine No Loratadine 10 MG 10 MG 10 MG Losartan Losartan No 1{table QD Losartan Potassium Potassium t} Potassium 100 MG 100 MG 100 MG dilTIAZem dilTIAZem No dilTIAZem HCl ER HCl ER HCl ER Beads 240 Beads 240 Beads 240 MG MG MG Aspirin 81 Aspirin 81 No 1{table QD Aspirin 81 81 MG 81 MG t} 81 MG Chlorthalid Chlorthalid No 1{table QD Chlorthali one 25 MG one 25 MG t_in_th done 25 MG e_morni ng_with _food} Aspirin 81 Aspirin 81 No 1{table QD Aspirin 81 81 MG 81 MG t} 81 MG 50+ 50+ No 50+ Manager Of Planning Manager Of Planning Manager Of Planning Womens Womens Womens Losartan Losartan No 1{table QD Losartan Potassium Potassium t} Potassium 100 MG 100 MG 100 MG Diazepam 5 Diazepam 5 No QD Diazepam 5 MG MG MG Vitamin D3 Vitamin D3 No Vitamin D3 dilTIAZem dilTIAZem No dilTIAZem HCl ER HCl ER HCl ER Beads 240 Beads 240 Beads 240 MG MG MG Chlorthalid Chlorthalid No 1{table QD Chlorthali one 25 MG one 25 MG t_in_th done 25 MG e_morni ng_with _food} Eliquis 5 Eliquis 5 No Eliquis 5 MG MG MG Prolia 60 Prolia 60 No Prolia 60 MG/ML MG/ML MG/ML Nitroglycer Nitroglycer No Nitroglyce in 0.4 MG in 0.4 MG rin 0.4 MG Loratadine Loratadine No Loratadine 10 MG 10 MG 10 MG Gabapentin Gabapentin No Gabapentin 300 MG 300 MG 300 MG Calcium Calcium No QD Calcium 1200 1200 1200 [id number] MG-UNIT MG-UNIT MG-UNIT Gabapentin Gabapentin No Gabapentin 300 MG 300 MG 300 MG Simvastatin Simvastatin No Simvastati 40 MG 40 MG n 40 MG Anastrozole Anastrozole No Anastrozol 1 MG 1 MG e 1 MG Nitroglycer Nitroglycer No Nitroglyce in 0.4 MG in 0.4 MG rin 0.4 MG Diazepam 5 Diazepam 5 No QD Diazepam 5 MG MG MG Gabapentin Gabapentin No Gabapentin 300 MG 300 MG 300 MG Calcium Calcium No QD Calcium 1200 1200 1200 [id number] [id number] MG-UNIT MG-UNIT MG-UNIT 50+ 50+ No 50+ Manager Of Planning Manager Of Planning Manager Of Planning Womens Womens Womens Aspirin 81 Aspirin 81 No 1{table QD Aspirin 81 81 MG 81 MG t} 81 MG Eliquis 5 Eliquis 5 No Eliquis 5 MG MG MG Vitamin D3 Vitamin D3 No Vitamin D3 Gabapentin Gabapentin No Gabapentin 300 MG 300 MG 300 MG Anastrozole Anastrozole No Anastrozol 1 MG 1 MG e 1 MG Chlorthalid Chlorthalid No 1{table QD Chlorthali one 25 MG one 25 MG t_in_th done 25 MG e_morni ng_with _food} Simvastatin Simvastatin No Simvastati 40 MG 40 MG n 40 MG dilTIAZem dilTIAZem No dilTIAZem HCl ER HCl ER HCl ER Beads 240 Beads 240 Beads 240 MG MG MG Prolia 60 Prolia 60 No Prolia 60 MG/ML MG/ML MG/ML Loratadine Loratadine No Loratadine 10 MG 10 MG 10 MG Losartan Losartan No 1{table QD Losartan Potassium Potassium t} Potassium 100 MG 100 MG 100 MG Diazepam 5 Diazepam 5 No QD Diazepam 5 MG MG MG Losartan Losartan No 1{table QD Losartan Potassium Potassium t} Potassium 100 MG 100 MG 100 MG Gabapentin Gabapentin No Gabapentin 300 MG 300 MG 300 MG Nitroglycer Nitroglycer No Nitroglyce in 0.4 MG in 0.4 MG rin 0.4 MG Calcium Calcium No QD Calcium 1200 1200 1200 [phone] MG-UNIT MG-UNIT MG-UNIT 50+ 50+ No 50+ Manager Of Planning Manager Of Planning Manager Of Planning Womens Womens Womens Aspirin 81 Aspirin 81 No 1{table QD Aspirin 81 81 MG 81 MG t} 81 MG Eliquis 5 Eliquis 5 No Eliquis 5 MG MG MG Vitamin D3 Vitamin D3 No Vitamin D3 Gabapentin Gabapentin No Gabapentin 300 MG 300 MG 300 MG Anastrozole Anastrozole No Anastrozol 1 MG 1 MG e 1 MG dilTIAZem dilTIAZem No dilTIAZem HCl ER HCl ER HCl ER Beads 240 Beads 240 Beads 240 MG MG MG Simvastatin Simvastatin No Simvastati 40 MG 40 MG n 40 MG Prolia 60 Prolia 60 No Prolia 60 MG/ML MG/ML MG/ML Loratadine Loratadine No Loratadine 10 MG 10 MG 10 MG Chlorthalid Chlorthalid No 1{table QD Chlorthali one 25 MG one 25 MG t_in_th done 25 MG e_morni ng_with _food} Chlorthalid Chlorthalid No 1{table QD Chlorthali one 25 MG one 25 MG t_in_th done 25 MG e_morni ng_with _food} Losartan Losartan No 1{table QD Losartan Potassium Potassium t} Potassium 100 MG 100 MG 100 MG Calcium Calcium No QD Calcium 1200 1200 1200 [id number] [id number] 7529-0515 MG-UNIT MG-UNIT MG-UNIT Simvastatin Simvastatin No Simvastati 40 MG 40 MG n 40 MG Aspirin 81 Aspirin 81 No 1{table QD Aspirin 81 81 MG 81 MG t} 81 MG Loratadine Loratadine No Loratadine 10 MG 10 MG 10 MG Diazepam 5 Diazepam 5 No QD Diazepam 5 MG MG MG dilTIAZem dilTIAZem No dilTIAZem HCl ER HCl ER HCl ER Beads 240 Beads 240 Beads 240 MG MG MG Eliquis 5 Eliquis 5 No Eliquis 5 MG MG MG Prolia 60 Prolia 60 No Prolia 60 MG/ML MG/ML MG/ML Gabapentin Gabapentin No Gabapentin 300 MG 300 MG 300 MG 50+ 50+ No 50+ Manager Of Planning Manager Of Planning Manager Of Planning Womens Womens Womens Vitamin D3 Vitamin D3 No Vitamin D3 Anastrozole Anastrozole No Anastrozol 1 MG 1 MG e 1 MG Nitroglycer Nitroglycer No Nitroglyce in 0.4 MG in 0.4 MG rin 0.4 MG Gabapentin Gabapentin No Gabapentin 300 MG 300 MG 300 MG Simvastatin Simvastatin No Simvastati 40 MG 40 MG n 40 MG Chlorthalid Chlorthalid No 1{table QD Chlorthali one 25 MG one 25 MG t_in_th done 25 MG e_morni ng_with _food} Calcium Calcium No QD Calcium 1200 1200 1200 [id number] [phone] MG-UNIT MG-UNIT MG-UNIT Loratadine Loratadine No Loratadine 10 MG 10 MG 10 MG Diazepam 5 Diazepam 5 No QD Diazepam 5 MG MG MG Aspirin 81 Aspirin 81 No 1{table QD Aspirin 81 81 MG 81 MG t} 81 MG Anastrozole Anastrozole No Anastrozol 1 MG 1 MG e 1 MG dilTIAZem dilTIAZem No dilTIAZem HCl ER HCl ER HCl ER Beads 240 Beads 240 Beads 240 MG MG MG Eliquis 5 Eliquis 5 No Eliquis 5 MG MG MG Prolia 60 Prolia 60 No Prolia 60 MG/ML MG/ML MG/ML Losartan Losartan No 1{table QD Losartan Potassium Potassium t} Potassium 100 MG 100 MG 100 MG 50+ 50+ No 50+ Manager Of Planning Manager Of Planning Manager Of Planning Womens Womens Womens Vitamin D3 Vitamin D3 No Vitamin D3 Gabapentin Gabapentin No Gabapentin 300 MG 300 MG 300 MG Nitroglycer Nitroglycer No Nitroglyce in 0.4 MG in 0.4 MG rin 0.4 MG dilTIAZem dilTIAZem No dilTIAZem HCl ER 240 HCl ER 240 HCl ER 240 MG MG MG Immunizations Ordered Immunization Filled Immunization Date Status Commen ts Source Name Name FLUZONE HIGH DOSE FLUZONE HIGH DOSE 2022-06-04 Completed [facility] OVER 65 OVER 65 11:38:00 [facility] FLUZONE HIGH DOSE FLUZONE HIGH DOSE 2022-06-04 Completed [facility] OVER 65 OVER 65 11:38:00 [facility] FLUZONE HIGH DOSE FLUZONE HIGH DOSE 2022-06-04 Completed [facility] OVER 65 OVER 65 11:38:00 [facility] FLUZONE HIGH DOSE FLUZONE HIGH DOSE 2022-06-04 Completed [facility] OVER 65 OVER 65 11:38:00 [facility] FLUZONE HIGH DOSE FLUZONE HIGH DOSE 2022-06-04 Completed [facility] OVER 65 OVER 65 11:38:00 [facility] Moderna COVID-19 Moderna COVID-19 2021-08-28 Completed [facility] 10:17:00 [facility] Moderna COVID-19 Moderna COVID-19 2021-08-28 Completed [facility] 10:17:00 [facility] Moderna COVID-19 Moderna COVID-19 2021-08-28 Completed [facility]ine Vaccine 10:17:00 [facility] Moderna COVID-19 Moderna COVID-19 2021-08-28 Completed [facility] Vacc[facility] 10:17:00 [facility] Moderna COVID-19 Moderna COVID-19 2021-08-28 Completed [facility] 10:17:00 [facility] Moderna COVID-19 Moderna COVID-19 2021-08-28 Completed [facility] 10:17:00 - [facility] Moderna COVID-19 Moderna COVID-19 2021-08-28 Completed [facility] 10:17:00 - [facility] Moderna COVID-19 Moderna COVID-19 2021-08-28 Completed [facility]ine [facility] 10:17:00 - [facility] Moderna COVID-19 Moderna COVID-19 2021-08-28 Completed [facility]ine Vacc[facility] 10:17:00 - [facility] Moderna COVID-19 Moderna COVID-19 2021-08-28 Completed [facility] 10:17:00 - [facility] Moderna COVID-19 Moderna COVID-19 2021-08-28 Completed [facility]ine Vaccine 10:17:00 - [facility] Moderna COVID-19 Moderna COVID-19 2021-08-28 Completed [facility]ine Vaccine 10:17:00 - [facility] Moderna COVID-19 Moderna COVID-19 2021-08-28 Completed [facility]ine [facility]ine 10:17:00 - [facility] Moderna COVID-19 Moderna COVID-19 2021-08-28 Completed [facility]ine [facility] 10:17:00 - [facility] Moderna COVID-19 Moderna COVID-19 2021-08-28 Completed [facility]ine [facility]ine 10:17:00 - [facility] Moderna COVID-19 Moderna COVID-19 2021-08-28 Completed [facility]ine [facility]ine 10:17:00 - [facility] Moderna COVID-19 Moderna COVID-19 2021-08-28 Completed [facility]ine Vaccine 10:17:00 - [facility] Moderna COVID-19 Moderna COVID-19 2021-08-28 Completed [facility]ine Vaccine 10:17:00 - [facility] Moderna COVID-19 Moderna COVID-19 2021-08-28 Completed [facility]ine [facility] 10:17:00 - [facility] FluAD FluAD 2021-05-21 Completed [facility] 09:33:00 - [facility] FluAD FluAD 2021-05-21 Completed [facility] 09[facility]33:00 - [facility] FluAD FluAD 2021-05-21 Completed [facility] 09[facility]33:00 - [facility] FluAD FluAD 2021-05-21 Completed [facility] 09[facility]33:00 - [facility] FluAD FluAD 2021-05-21 Completed [facility] 09[facility]33:00 - [facility] FluAD FluAD 2021-05-21 Completed [facility] 09[facility]33:00 - [facility] FluAD FluAD 2021-05-21 Completed [facility] 09[facility]33:00 - [facility] FluAD FluAD 2021-05-21 Completed [facility] 09[facility]33:00 - [facility] FluAD FluAD 2021-05-21 Completed [facility] 09[facility]33:00 - [facility] FluAD FluAD 2021-05-21 Completed [facility] 09[facility]33:00 - [facility] FluAD FluAD 2021-05-21 Completed [facility] 09[facility]33:00 - [facility] FluAD FluAD 2021-05-21 Completed [facility] 09[facility]33:00 - [facility] FluAD FluAD 2021-05-21 Completed [facility] 09[facility]33:00 - [facility] FluAD FluAD 2021-05-21 Completed [facility] 09[facility]33:00 - [facility] FluAD FluAD 2021-05-21 Completed [facility] 09[facility]33:00 - [facility] FluAD FluAD 2021-05-21 Completed [facility] 09[facility]33:00 - [facility] FluAD FluAD 2021-05-21 Completed [facility] 09[facility]33:00 - [facility] FluAD FluAD 2021-05-21 Completed [facility] 09[facility]33:00 - [facility] FluAD FluAD 2021-05-21 Completed [facility] 09[facility]33:00 - [facility] FluAD FluAD 2021-05-21 Completed [facility] 09:33:00 - [facility] FluAD FluAD 2021-05-21 Completed [facility] 09:33:00 - [facility] Shingrix Shingrix 2020-12-13 Completed [facility] 14:53:00 - [facility] Shingrix Shingrix 2020-12-13 Completed [facility] 14:53:00 - [facility] Shingrix Shingrix 2020-12-13 Completed [facility] 14:53:00 - [facility] Shingrix Shingrix 2020-12-13 Completed [facility] 14:53:00 - [facility] Shingrix Shingrix 2020-12-13 Completed [facility] 14:53:00 - [facility] Shingrix Shingrix 2020-12-13 Completed [facility] 14:53:00 - [facility] Shingrix Shingrix 2020-12-13 Completed [facility] 14[facility]53:00 - [facility] Shingrix Shingrix 2020-12-13 Completed [facility] 14:53:00 - [facility] Shingrix Shingrix 2020-12-13 Completed [facility] 14:53:00 - [facility] Shingrix Shingrix 2020-12-13 Completed [facility] 14:53:00 - [facility] Shingrix Shingrix 2020-12-13 Completed [facility] 14:53:00 - [facility] Shingrix Shingrix 2020-12-13 Completed [facility] 14:53:00 - [facility] Shingrix Shingrix 2020-12-13 Completed [facility] 14:53:00 - [facility] Shingrix Shingrix 2020-12-13 Completed [facility] 14:53:00 - [facility] Shingrix Shingrix 2020-12-13 Completed [facility] 14:53:00 - [facility] Shingrix Shingrix 2020-12-13 Completed [facility] 14:53:00 - [facility] Shingrix Shingrix 2020-12-13 Completed [facility] 14:53:00 - [facility] Shingrix Shingrix 2020-12-13 Completed [facility] 14:53:00 - [facility] Shingrix Shingrix 2020-12-13 Completed [facility] 14[facility]53:00 - [facility] Shingrix Shingrix 2020-12-13 Completed [facility] 14:53:00 - [facility] Shingrix Shingrix 2020-12-13 Completed [facility] 14:53:00 - [facility] Moderna COVID-19 Moderna COVID-19 2020-11-14 Completed [facility]ine Vaccine 09:52:00 - [facility] Moderna COVID-19 Moderna COVID-19 2020-11-14 Completed [facility]ine Vacc[facility] 09:52:00 - [facility] Moderna COVID-19 Moderna COVID-19 2020-11-14 Completed [facility]ine Vacc[facility] 09:52:00 - [facility] Moderna COVID-19 Moderna COVID-19 2020-11-14 Completed [facility]ine Vacc[facility] 09:52:00 - [facility] Moderna COVID-19 Moderna COVID-19 2020-11-14 Completed [facility]ine Vacc[facility] 09:52:00 - [facility] Moderna COVID-19 Moderna COVID-19 2020-11-14 Completed [facility]ine Vaccine 09:52:00 - [facility] Moderna COVID-19 Moderna COVID-19 2020-11-14 Completed [facility]ine Vacc[facility] 09:52:00 - [facility] Moderna COVID-19 Moderna COVID-19 2020-11-14 Completed [facility]ine Vacc[facility] 09:52:00 - [facility] Moderna COVID-19 Moderna COVID-19 2020-11-14 Completed [facility]ine Vaccine 09:52:00 - [facility] Moderna COVID-19 Moderna COVID-19 2020-11-14 Completed [facility]ine Vaccine 09:52:00 - [facility] Moderna COVID-19 Moderna COVID-19 2020-11-14 Completed [facility]ine Vacc[facility] 09:52:00 - [facility] Moderna COVID-19 Moderna COVID-19 2020-11-14 Completed [facility]ine Vaccine 09:52:00 - [facility] Moderna COVID-19 Moderna COVID-19 2020-11-14 Completed [facility]ine Vacc[facility] 09:52:00 - [facility] Moderna COVID-19 Moderna COVID-19 2020-11-14 Completed [facility]ine Vacc[facility] 09:52:00 - [facility] Moderna COVID-19 Moderna COVID-19 2020-11-14 Completed [facility]ine Vacc[facility] 09:52:00 - [facility] Moderna COVID-19 Moderna COVID-19 2020-11-14 Completed [facility]ine Vaccine 09:52:00 - [facility] Moderna COVID-19 Moderna COVID-19 2020-11-14 Completed [facility]ine Vaccine 09:52:00 - [facility] Moderna COVID-19 Moderna COVID-19 2020-11-14 Completed [facility]ine Vaccine 09:52:00 - [facility] Moderna COVID-19 Moderna COVID-19 2020-11-14 Completed [facility] Vaccine Vaccine 09:52:00 - [facility] Moderna COVID-19 Moderna COVID-19 2020-11-14 Completed [facility] Vaccine Vaccine 09:52:00 [facility] Moderna COVID-19 Moderna COVID-19 2020-11-14 Completed [facility] Vaccine Vaccine 09:52:00 - [facility] Moderna COVID-19 Moderna COVID-19 2020-10-17 Completed [facility]ine Vaccine 09:51:00 - [facility] Moderna COVID-19 Moderna COVID-19 2020-10-17 Completed [facility]ine Vaccine 09:51:00 - [facility] Moderna COVID-19 Moderna COVID-19 2020-10-17 Completed [facility]ine Vaccine 09:51:00 - [facility] Moderna COVID-19 Moderna COVID-19 2020-10-17 Completed [facility] Vaccine Vaccine 09:51:00 - [facility] Moderna COVID-19 Moderna COVID-19 2020-10-17 Completed [facility]ine Vaccine 09:51:00 - [facility] Moderna COVID-19 Moderna COVID-19 2020-10-17 Completed [facility] Vaccine Vaccine 09:51:00 - [facility] Moderna COVID-19 Moderna COVID-19 2020-10-17 Completed [facility] Vaccine Vaccine 09:51:00 - [facility] Moderna COVID-19 Moderna COVID-19 2020-10-17 Completed [facility] Vaccine Vaccine 09:51:00 - [facility] Moderna COVID-19 Moderna COVID-19 2020-10-17 Completed [facility] Vaccine Vaccine 09:51:00 - [facility] Moderna COVID-19 Moderna COVID-19 2020-10-17 Completed [facility] Vaccine Vaccine 09:51:00 - [facility] Moderna COVID-19 Moderna COVID-19 2020-10-17 Completed [facility]ine Vaccine 09:51:00 - [facility] Moderna COVID-19 Moderna COVID-19 2020-10-17 Completed [facility]ine Vaccine 09:51:00 - [facility] Moderna COVID-19 Moderna COVID-19 2020-10-17 Completed [facility]ine Vaccine 09:51:00 - [facility] Moderna COVID-19 Moderna COVID-19 2020-10-17 Completed [facility]ine Vaccine 09:51:00 - [facility] Moderna COVID-19 Moderna COVID-19 2020-10-17 Completed [facility]ine Vacc[facility] 09:51:00 - [facility] Moderna COVID-19 Moderna COVID-19 2020-10-17 Completed [facility]ine Vacc[facility] 09:51:00 - [facility] Moderna COVID-19 Moderna COVID-19 2020-10-17 Completed [facility] Vaccine Vaccine 09:51:00 - [facility] Moderna COVID-19 Moderna COVID-19 2020-10-17 Completed [facility]ine Vacc[facility] 09:51:00 - [facility] Moderna COVID-19 Moderna COVID-19 2020-10-17 Completed [facility]ine Vacc[facility] 09:51:00 - [facility] Moderna COVID-19 Moderna COVID-19 2020-10-17 Completed [facility]ine Vacc[facility] 09:51:00 - [facility] Moderna COVID-19 Moderna COVID-19 2020-10-17 Completed [facility] Vaccine Vaccine 09:51:00 - [facility] Shingrix Shingrix 2020-07-19 Completed [facility] 10:35:00 - [facility] Shingrix Shingrix 2020-07-19 Completed [facility] 10:35:00 - [facility] Shingrix Shingrix 2020-07-19 Completed [facility] 10:35:00 - [facility] Shingrix Shingrix 2020-07-19 Completed [facility] 10:35:00 - [facility] Shingrix Shingrix 2020-07-19 Completed [facility] 10:35:00 - [facility] Shingrix Shingrix 2020-07-19 Completed [facility] 10:35:00 - [facility] Shingrix Shingrix 2020-07-19 Completed [facility] 10:35:00 - [facility] Shingrix Shingrix 2020-07-19 Completed [facility] 10:35:00 - [facility] Shingrix Shingrix 2020-07-19 Completed [facility] 10:35:00 - [facility] Shingrix Shingrix 2020-07-19 Completed [facility] 10:35:00 - [facility] Shingrix Shingrix 2020-07-19 Completed [facility] 10:35:00 - [facility] Shingrix Shingrix 2020-07-19 Completed [facility] 10[facility]35:00 [facility] Shingrix Shingrix 2020-07-19 Completed [facility] 10:35:00 - [facility] Shingrix Shingrix 2020-07-19 Completed [facility] 10:35:00 - [facility] Shingrix Shingrix 2020-07-19 Completed [facility] 10:35:00 - [facility] Shingrix Shingrix 2020-07-19 Completed [facility] 10:35:00 - [facility] Shingrix Shingrix 2020-07-19 Completed [facility] 10:35:00 - [facility] Shingrix Shingrix 2020-07-19 Completed [facility] 10:35:00 - [facility] Shingrix Shingrix 2020-07-19 Completed [facility] 10:35:00 - [facility] Shingrix Shingrix 2020-07-19 Completed [facility] 10:35:00 [facility] [place] [facility] 2020-07-19 [facility]pleted [facility] 10:35:00 - [facility] [place] FluAD FluAD 2020-05-21 Completed [facility] 10:48:00 - [facility] [place] FluAD FluAD 2020-05-21 Completed [facility] 10:48:00 - [facility] [place] FluAD FluAD 2020-05-21 Completed [facility] 10:48:00 - [facility] [place] FluAD FluAD 2020-05-21 Completed [facility] 10:48:00 - [facility] [place] FluAD FluAD 2020-05-21 Completed [facility] 10:48:00 - [facility] [place] FluAD FluAD 2020-05-21 Completed [facility] 10:48:00 - [facility] [place] FluAD FluAD 2020-05-21 Completed [facility] 10:48:00 - [facility] [place] FluAD FluAD 2020-05-21 Completed [facility] 10:48:00 - [facility] [place] FluAD FluAD 2020-05-21 Completed [facility] 10:48:00 - [facility] [place] FluAD FluAD 2020-05-21 Completed [facility] 10:48:00 - [facility] [place] FluAD FluAD 2020-05-21 Completed [facility] 10:48:00 - [facility] [place] FluAD FluAD 2020-05-21 Completed [facility] 10:48:00 - [facility] [place] FluAD FluAD 2020-05-21 Completed [facility] 10:48:00 - [facility] [place] FluAD FluAD 2020-05-21 Completed [facility] 10:48:00 - [facility] [place] FluAD FluAD 2020-05-21 Completed [facility] 10:48:00 - [facility] [place] FluAD FluAD 2020-05-21 Completed [facility] 10:48:00 - [facility] [place] FluAD FluAD 2020-05-21 Completed [facility] 10:48:00 - [facility] [place] FluAD FluAD 2020-05-21 Completed [facility] 10:48:00 - [facility] [place] FluAD FluAD 2020-05-21 Completed [facility] 10:48:00 - [facility] [place] FluAD FluAD 2020-05-21 Completed [facility] 10:48:00 - [facility] [place] FluAD FluAD 2020-05-21 Completed [facility] 10:48:00 - [facility] [place] Vital Signs Vital Name Observation Time Observation Value Comments Source height 2022-06-25 11:15:00 62 [in_i] [facility] weight 2022-06-25 11:15:00 144 [lb_av] [facility] temperature 2022-06-25 11:15:00 98.6 [degF] [facility] bmi 2022-06-25 11:15:00 26.34 kg/m2 [facility] oximetry 2022-06-25 11:15:00 96 % [facility] respiratory rate 2022-06-25 11:15:00 18 /min Comm on [facility] - [facility] [place] height 2022-06-12 09:15:00 62 [in_i] [facility] weight 2022-06-12 09:15:00 145 [lb_av] [facility] temperature 2022-06-12 09:15:00 98.0 [degF] [facility] bmi 2022-06-12 09:15:00 26.52 kg/m2 [facility] oximetry 2022-06-12 09:15:00 97 % [facility] respiratory rate 2022-06-12 09:15:00 16 /min Comm on [facility] blood pressure 2022-06-12 09:15:00 191 mm[Hg] Common [facility] - systolic [facility] [place] blood pressure 2022-06-12 09:15:00 89 mm[Hg] Common [facility] - diastolic [facility] [place] height 2022-06-04 11:30:00 62 [in_i] Common [facility] weight 2022-06-04 11:30:00 144 [lb_av] Common [facility] temperature 2022-06-04 11:30:00 97.3 [degF] [facility] bmi 2022-06-04 11:30:00 26.34 kg/m2 [facility] oximetry 2022-06-04 11:30:00 96 % [facility] respiratory rate 2022-06-04 11:30:00 18 /min Comm on [facility] blood pressure 2022-06-04 11:30:00 136 mm[Hg] Common [facility] - systolic [facility] [place] blood pressure 2022-06-04 11:30:00 75 mm[Hg] Common [facility] - diastolic [facility] [place] height 2022-03-05 10:40:00 62 [in_i] [facility] weight 2022-03-05 10:40:00 145.8 [lb_av] Common [facility] temperature 2022-03-05 10:40:00 97.3 [degF] [facility] bmi 2022-03-05 10:40:00 26.66 kg/m2 [facility] oximetry 2022-03-05 10:40:00 96 % [facility] respiratory rate 2022-03-05 10:40:00 18 /min Comm on [facility] blood pressure 2022-03-05 10:40:00 134 mm[Hg] [facility] - systolic [facility] [place] blood pressure 2022-03-05 10:40:00 76 mm[Hg] [facility] - diastolic [facility] [place] height 2021-12-16 11:40:00 63 [in_i] [facility] weight 2021-12-16 11:40:00 145.6 [lb_av] [facility] - [facility] [place] temperature 2021-12-16 11:40:00 97.5 [degF] [facility] bmi 2021-12-16 11:40:00 25.79 kg/m2 Common [facility] oximetry 2021-12-16 11:40:00 97 % [facility] respiratory rate 2021-12-16 11:40:00 16 /min Comm on [facility] blood pressure 2021-12-16 11:40:00 180 mm[Hg] [facility] - systolic [facility] [place] blood pressure 2021-12-16 11:40:00 100 mm[Hg] [facility] - diastolic [facility] [place] height 2021-12-11 16:00:00 63 [in_i] [facility] weight 2021-12-11 16:00:00 148 [lb_av] [facility] temperature 2021-12-11 16:00:00 98.6 [degF] [facility] bmi 2021-12-11 16:00:00 26.21 [facility]2 [facility]-12[facility]11 16:00:00 99 % [facility] 2021-12-11 16:00:00 16 /min Comm on [facility] blood pressure 2021-12-11 16:00:00 132 mm[Hg] [facility] - systolic [facility] [place] blood pressure 2021-12-11 16:00:00 68 mm[Hg] [facility] - diastolic [facility] [place] height 2021-12-04 09:20:00 63 [in_i] [facility] weight 2021-12-04 09:20:00 145.0 [lb_av] [facility] temperature 2021-12-04 09:20:00 97.5 [degF] [facility] bmi 2021-12-04 09:20:00 25.68 kg/m2 [facility] oximetry 2021-12-04 09:20:00 97 % [facility] respiratory rate 2021-12-04 09:20:00 17 /min Comm on [facility] blood pressure 2021-12-04 09:20:00 158 mm[Hg] [facility] - systolic [facility] [place] blood pressure 2021-12-04 09:20:00 89 mm[Hg] [facility] - diastolic [facility] [place] height 2021-12-04 10:00:00 63 [in_i] [facility] weight 2021-12-04 10:00:00 145.0 [lb_av] [facility] temperature 2021-12-04 10:00:00 97.5 [degF] [facility] bmi 2021-12-04 10:00:00 25.68 kg/m2 [facility] oximetry 2021-12-04 10:00:00 97 % [facility] respiratory rate 2021-12-04 10:00:00 17 /min Comm on [facility] blood pressure 2021-12-04 10:00:00 158 mm[Hg] [facility] - systolic [facility] [place] blood pressure 2021-12-04 10:00:00 89 mm[Hg] [facility] - diastolic [facility] [place] height 2021-11-28 11:00:00 63 [in_i] [facility] weight 2021-11-28 11:00:00 144.2 [lb_av] [facility] [place] temperature 2021-11-28 11:00:00 97.3 [degF] [facility] bmi 2021-11-28 11:00:00 25.54 kg/m2 [facility] oximetry 2021-11-28 11:00:00 97 % [facility] respiratory rate 2021-11-28 11:00:00 16 /min Comm on [facility] blood pressure 2021-11-28 11:00:00 189 mm[Hg] [facility] - systolic [facility] [place] blood pressure 2021-11-28 11:00:00 113 mm[Hg] [facility] - diastolic [facility] [place] height 2021-08-21 10:30:00 63 [in_i] [facility] weight 2021-08-21 10:30:00 146.8 [lb_av] [facility] temperature 2021-08-21 10:30:00 97.3 [degF] [facility] bmi 2021-08-21 10:30:00 26 kg/m2 [facility] oximetry 2021-08-21 10:30:00 96 % [facility] respiratory rate 2021-08-21 10:30:00 16 /min Comm on [facility] blood pressure 2021-08-21 10:30:00 145 mm[Hg] [facility] - systolic [facility] [place] blood pressure 2021-08-21 10:30:00 79 mm[Hg] [facility] - diastolic [facility] [place] height 2021-05-21 08:50:00 63 [in_i] [facility] weight 2021-05-21 08:50:00 145.0 [lb_av] [facility] temperature 2021-05-21 08:50:00 97.0 [degF] [facility] bmi 2021-05-21 08:50:00 25.68 kg/m2 [facility] - [facility] oximetry 2021-05-21 08:50:00 97 % [facility] - [facility] respiratory rate 2021-05-21 08:50:00 16 /min [facility] [place] blood pressure 2021-05-21 08:50:00 143 mm[Hg] [facility] - systolic [facility] [place] blood pressure 2021-05-21 08:50:00 76 mm[Hg] [facility] - diastolic [facility] [place] Weight 2019-05-24 19:15:00 [facility] [place] Height 2019-05-24 19:15:00 [facility] Diastolic (mm Hg) 2019-05-24 19:15:00 Mem orial Yunior Systolic (mm Hg) 2019-05-24 19:15:00 Nadeem rial Yunior Procedures This patient has no known procedures. Plan of Care Planned Activity Planned Date Details Comments Source Future Scheduled 2022-08-01 COVID-19 VACCINE (#1) [facility] Test 15:53:46 [code = COVID-19 VACCINE (#1)] Future Scheduled 2022-08-01 SHINGLES VACCINES (1 [facility] Test 15:53:46 of 2) [code = SHINGLES VACCINES (1 of 2)] Future Scheduled 2022-08-01 65+ PNEUMOCOCCAL [facility] Test 15:53:46 VACCINE (1 - PCV) [code = 65+ PNEUMOCOCCAL VACCINE (1 - PCV)] Future Scheduled 2022-08-01 INFLUENZA VACCINE [facility] Test 15:53:46 [code = INFLUENZA VACCINE] Encounters Start End Encounter Admission Attending Care Care Encounter Source Date/Time Date/Time Type Type Clinicians Facility Department ID 2022-08-12 Outpatient [id number] Memoria 10:10:07 [phone] [phone] [id number] Yunior [id number] 2022-06-25 Outpatient Toan [facility] [id number] Common 11:43:01 Mike [facility] 2022-06-02 Outpatient Joya, STLMLC STLC [id number] Common 14:50:00 Mike [facility] 2022-01-06 Outpatient Joya, STLMLC STLC [id number] Common 10:01:18 Mike [facility] 2021-12-19 Outpatient Joya, STLMLC STLC [id number] Common 08:43:01 Mike [facility] 2021-11-21 Outpatient Joya, STLMLC STLC [id number] Common 14:09:01 Mike [facility] 2021-09-11 Outpatient Joya, STLMLC STLC [id number] Common 14:31:09 Mike [facility] 2021-09-11 Outpatient Joya, STLMLC STLC [id number] Common 13:56:26 Mike [id number] [facility] 2021-09-11 Outpatient Joya, STLMLC STLC [id number] Common 12:39:15 Mike [id number] [facility] 2021-09-11 Outpatient Joya, STLMLC STLC [id number] Common 12:34:42 Mike [facility] 2021-09-11 Outpatient Joya, STLMLC STLC [id number] Common 11:51:29 Mike [id number] [facility] 2021-09-11 Outpatient Joya, STLMLC STLC [id number] Common 11:19:08 Mike [id number] [facility] 2021-09-11 Outpatient Joya, STLMLC STLC [id number] Common 11:18:56 Mike [id number] [facility] 2021-09-11 Outpatient Joya, STLMLC STLC [id number] Common 11:10:38 Mike [id number] [facility] 2021-09-11 Outpatient Joya, STLMLC STLMLC [id number] Common 11:10:17 [facility] [id number] [facility] [place] 2019-06-14 Outpatient [facility] CAR [id number] Me moria 08:22:36 [facility] 2019-[facility]-17 Inpatient [facility] [id number] Mem oria 06:43:00 [facility]ian [facility] 2019-05-13 Outpatient [facility] [id number] Me moria 12:47:12 tian Mojica [facility] 2022-08-05 2022-08-05 (ABIODUN) STLMLC STLMLC [id number] Co mmon 00:00:00 00:00:00 Surgery [facility] 2022-06-25 2022-06-25 OFFICE STLMLC STLMLC [id number] Co mmon 00:00:00 00:00:00 VISIT [facility] ESTAB PT - [facility] LEVEL 2 [facility] 2022-06-15 2022-06-15 (TEL) STLMLC STLMLC [id number] Co mmon 00:00:00 00:00:00 [facility] 2022-06-12 2022-06-12 OFFICE STLMLC STLMLC [id number] Co mmon 00:00:00 00:00:00 VISIT EST Spir it PT LEVEL 3 - [facility] 2022-06-04 2022-06-04 OFFICE STLMLC STLMLC [id number] Co mmon 00:00:00 00:00:00 VISIT [facility] ESTAB PT - [facility] LEVEL 4 [facility] 2022-04-15 2022-04-15 (TEL) STLMLC STLMLC [id number] Co mmon 00:00:00 00:00:00 [facility] 2022-03-05 2022-03-05 OFFICE STLMLC STLMLC [id number] Co mmon 00:00:00 00:00:00 VISIT [facility] ESTAB PT - [facility] LEVEL 4 [facility] 2022-01-02 2022-01-02 (TEL) STLMLC STLMLC [id number] Co mmon 00:00:00 00:00:00 [facility] 2021-12-16 2021-12-16 OFFICE STLMLC STLMLC [id number] Co mmon 00:00:00 00:00:00 VISIT EST Spir it PT LEVEL 3 - [facility] 2021-12-12 2021-12-12 (TEL) STLMLC STLMLC [id number] Co mmon 00:00:00 00:00:00 [facility] 2021-12-12 2021-12-12 (TEL) STLMLC STLMLC [id number] Co mmon 00:00:00 00:00:00 [facility] 2021-12-11 2021-12-11 (PROC) STLMLC STLMLC [id number] Co mmon 00:00:00 00:00:00 Procedure Spir it - [facility] 2021-12-04 2021-12-04 OFFICE STLMLC STLMLC [id number] Co mmon 00:00:00 00:00:00 VISIT [facility] ESTAB PT - [facility] LEVEL 4 [facility] 2021-12-04 2021-12-04 (TEL) STLMLC STLMLC [id number] Co mmon 00:00:00 00:00:00 [facility] 2021-12-04 2021-12-04 SUB ANNUAL STLMLC STLMLC [id number] Common 00:00:00 00:00:00 MCR [facility] VISIT [facility] 2021-12-02 2021-12-02 (TEL) STLMLC STLMLC [id number] Co mmon 00:00:00 00:00:00 [facility] 2021-11-28 2021-11-28 NON-BILLAB STLMLC STLMLC [id number] Common 00:00:00 00:00:00 LE VISIT Spiri t - [facility] [place] 2021-10-09 2021-10-09 (TEL) STLMLC STLMLC [id number] Co mmon 00:00:00 00:00:00 [facility] 2021-08-28 2021-08-28 (COVID STLMLC STLMLC [id number] Co mmon 00:00:00 00:00:00 Inj) COVID Spi rit Injection - [facility] [place] 2021-08-212021-08-21 OFFICE STLMLC STLMLC [id number] Co mmon 00:00:00 00:00:00 VISIT [facility] PT - [facility] LEVEL 4 [facility] 2021-05-21 2021-05-21 OFFICE STLMLC STLMLC [id number] Co mmon 00:00:00 00:00:00 VISIT [facility] PT - [facility] 4 [facility] 2021-02-19 2021-02-19 Outpatient STLMLC STLMLC [id number] Common 00:00:00 00:00:00 [facility] 2020-12-13 2020-12-13 Outpatient STLMLC STLMLC [id number] Common 00:00:00 00:00:00 [facility] 2020-12-13 2020-12-13 Outpatient STLMLC STLMLC [id number] Common 00:00:00 00:00:00 [facility] 2020-11-28 2020-11-28 Outpatient STLMLC STLMLC [id number] Common 00:00:00 00:00:00 [facility] 2020-11-21 2020-11-21 Outpatient STLMLC STLMLC [id number] Common 00:00:00 00:00:00 [facility] 2020-11-20 2020-11-20 Outpatient STLMLC STLMLC [id number] Common 00:00:00 00:00:00 [facility] 2020-11-20 2020-11-20 Outpatient STLMLC STLMLC [id number] Common 00:00:00 00:00:00 [facility] 2020-10-26 2020-10-26 Outpatient STLMLC STLMLC [id number] Common 00:00:00 00:00:00 [facility] 2020-10-25 2020-10-25 Outpatient STLMLC STLMLC [id number] Common 00:00:00 00:00:00 [facility] 2020-09-24 2020-09-24 Outpatient STLMLC STLMLC [id number] Common 00:00:00 00:00:00 [facility] 2020-08-21 2020-08-21 Outpatient STLMLC STLMLC [id number] Common 00:00:00 00:00:00 [facility] 2020-08-21 2020-08-21 Outpatient STLMLC STLMLC [id number] Common 00:00:00 00:00:00 [facility] 2020-07-19 2020-07-19 Outpatient STLMLC STLMLC [id number] Common 00:00:00 00:00:00 [facility] 2020-07-16 2020-07-16 Outpatient STLMLC STLMLC [id number] Common 00:00:00 00:00:00 [facility] 2020-05-21 2020-05-21 Outpatient STLMLC STLMLC [id number] Common 00:00:00 00:00:00 [facility] 2020-04-02 2020-04-02 [facility] [id number] Common 14:26:00 14:26:[address] [facility] 2020-02-20 2020-02-20 Out[facility] [id number] Common 10:45:00 10:45:[address] [facility] 2019-12-09 2019-12-09 [facility] [id number] Common 10:00:00 10:00:[address] [facility] 2019-12-09 2019-12-09 [facility] [id number] Common 09:45:00 09:45:[address] [facility] 2019-12-06 2019-12-06 [facility] [id number] Common 14:22:00 14:22:[address] [facility] 2019-10-12 2019-10-12 [facility] [id number] Common 14:30:00 14:30:[address] [facility] 2019-10-12 2019-10-12 [facility] [id number] Common 10:00:00 10:00:[address] [facility] 2019-06-29 2019-06-29 Outpatient [facility] [id number] Memoria 10:11:00 10:11:00 [facility] 2019-05-24 2019-05-24 Outpatient Ady Arango [id number] [facility]Clinic 14:15:00 14:15:00 Kristi Berry MD al Works 2019-04-26 2019-04-26 Outpatient [facility] [id number] Memoria 06:54:00 06:54:00 l [facility] 2019-04-04 2019-04-04 Outpatient [facility] [id number] Memoria 11:24:00 11:24:00 l [facility] 2018-04-06 2018-04-06 [facility] [id number] Common 08:00:00 08:00:00 [facility] 2018-03-15 2018-03-15 [facility] [id number] Common 08:30:00 08:30:00 [facility] Results This patient has no known results.
--- NOTE | 2022-08-12 10:50 | RAD REPORT ---
EXAM DESCRIPTION: CT - Head Brain Wo Cont - 08/12/2022 10:38 am CLINICAL HISTORY: Fall injury Fall, trauma, head injury COMPARISON: No comparisons TECHNIQUE: All CT scans are performed using dose optimization technique as appropriate and may inclu de automated exposure control or mA/KV adjustment according to patient size. FINDINGS: No intracranial hemorrhage, hydrocephalus or extra-axial fluid collection.Mild generalized brain atrophy is present with mild periventricular and deep white matter chronic microvascular ische jayashree changes.No areas of brain edema or evidence of midline shift. The paranasal sinuses and mastoids are essentially clear. The calvarium is intact. IMPRESSION: No acute intracranial abnormality.
[2022-08-12] MEDS ORDERED: TDAP (DIPHTH,PERTUSS(ACELL),TET VAC) 0.5 ML VIAL IMVAC ONE (11:02)
[2022-08-12] MEDS ORDERED: LIDOCAINE 1% MPF 5 ML VIAL ONE (11:02)
--- NOTE | 2022-08-12 11:26 | RAD REPORT ---
EXAM DESCRIPTION: RAD - Hand Right 3 View - 08/12/2022 11:06 am CLINICAL HISTORY: PAIN COMPARISON: No comparisons FINDINGS: Radiopaque debris is seen adjacent to the first digit soft tissues proximally. The bones a re demineralized. No evidence of acute fracture or dislocation.
--- NOTE | 2022-08-12 11:29 | RAD REPORT ---
EXAM DESCRIPTION: RAD - Knee Left 3 View - 08/12/2022 11:06 am CLINICAL HISTORY: PAIN COMPARISON: No comparisons FINDINGS: Mild diffuse osteopenia. There is a large amount of soft tissue swelling seen anterior kne e soft tissues. No evidence of fracture seen. No significant joint fluid.
--- NOTE | 2022-08-12 12:33 | EDPHYS ---
Physician Documentation [facility] Name: Veronique Keller Age: 87 yrs Sex: Female : 1935 Arrival Date: 08/12/2022 Time: 10:02 Bed 20 Private MD: ED Physician Jerzy Smiley HPI: 08/12 10:29 This 87 yrs old Female presents to ER via Ambulatory with complaints of Fall Injury. pm1 10:29 Details of fall: The patient fell from an upright position, while walking, and struck a pm1 concrete surface. Onset: The symptoms/episode began/occurred just prior to arrival. Associated injuries: The patient sustained injury to the head, contusion, heel of right hand, laceration, left knee, abrasion, contusion. Severity of symptoms: in the emergency department the symptoms are unchanged. The patient has not experienced similar symptoms in the past. The patient has not recently seen a physician. Patient tripped while walking in a parking lot of a grocery store. Patient with contusion to lateral aspect of left eyebrow, laceration to right palm and abrasion/contusion to left knee. Patient without neck pain, LOC.. Historical: - Allergies: 10:21 No Known Allergies; ll1 - PMHx: 10:21 Hypertensive disorder; Hypercholesterolemia; breast CA; ll1 - PSHx: 10:21 B mastectomy; ll1 - Immunization history:: Client reports receiving the 2nd dose of the Covid vaccine. - Social history:: Smoking status: Patient/guardian denies using tobacco, the patient reports quitting approximately 13 years ago. - Immunization history: Last tetanus immunization: unknown. ROS: 10:29 Constitutional: Negative for fever, chills, and weight loss, Eyes: Negative for injury, pm1 pain, redness, and discharge, Cardiovascular: Negative for chest pain, palpitations, and edema, Respiratory: Negative for shortness of breath, cough, wheezing, and pleuritic chest pain, Abdomen/GI: Negative for abdominal pain, nausea, vomiting, diarrhea, and constipation. 10:29 MS/extremity: Positive for laceration, of the right hand, abrasions and contusion to left knee, Negative for decreased range of motion, deformity. 10:29 Skin: Positive for laceration(s), of the right hand. 10:29 Neuro: Positive for headache, Dizziness after hitting head, Negative for numbness, weakness. 10:29 All other systems are negative. Exam: 10:29 Constitutional: This is a well developed, well nourished patient who is awake, alert, pm1 and in no acute distress. 10:29 Head/face: Noted is no obvious of injury or deformity except ecchymosis, that is mild, of the outer aspect of left eyebrow. 10:29 Eyes: Periorbital structures: no acute changes, Pupils: no acute changes, Extraocular movements: no acute changes, Conjunctiva: no acute changes, no injection. 10:29 ENT: Exam is negative for acute changes, External ear(s): no acute changes, Ear canal(s): no acute changes, TM's: no acute changes, Mouth: no acute changes, Lips: normal, moist, Oral mucosa: normal, pink and intact, moist. 10:29 Neck: Exam negative for acute changes, External neck: no acute changes, C-spine: vertebral tenderness, is not appreciated, ROM/movement: no acute changes. 10:29 Cardiovascular: Exam negative for acute changes, Rate: normal, Rhythm: regular, Pulses: no pulse deficits are appreciated. 10:29 Respiratory: Exam negative for acute changes, respiratory distress, shortness of breath. 10:29 Back: Exam negative for acute changes, pain, is absent, vertebral tenderness, is not appreciated. 10:29 Musculoskeletal/extremity: Extremities: grossly normal except: noted in the heel of right hand: laceration, noted in the left knee: mild abrasion and mild contusion, ROM: intact in all extremities. 10:29 Skin: see MS/Extremity exam. 10:29 Neuro: Exam negative for acute changes, Orientation: is normal, Mentation: is normal, Motor: is normal, moves all fours. Vital Signs: 10:19 BP 176 / 114; Pulse 93; Resp 18; Temp 97.6; Pulse Ox 98% ; Pain 5/10; ll1 10:31 BP 149 / 75; Pulse 90; Resp 15; Pulse Ox 98% ; Pain 5/10; jl7 11:18 BP 157 / 83; Pulse 72; Resp 15; Pulse Ox 95% ; Weight 68.04 kg; Pain 6/10; jl7 12:15 BP 149 / 75; Pulse 70; Resp 15; Pulse Ox 95% ; jl7 [place] Coma Score: 10:31 Eye Response: spontaneous(4). Verbal Response: oriented(5). Motor Response: obeys jl7 commands(6). Total: 15. 11:18 Eye Response: spontaneous(4). Verbal Response: oriented(5). Motor Response: obeys jl7 commands(6). Total: 15. 12:15 Eye Response: spontaneous(4). Verbal Response: oriented(5). Motor Response: obeys jl7 commands(6). Total: 15. Trauma Score (Adult): 10:31 Eye Response: spontaneous(1); Verbal Response: oriented(1); Motor Response: obeys jl7 commands(2); Systolic BP: > 89 mm Hg(4); Respiratory Rate: 10 to 29 per min(4); [place] Score: 15; Trauma Score: 12 Laceration: 12:21 Wound Repair of 7cm ( 2.8in ) subcutaneous laceration to right hand. Irregularly pm1 shaped.. Distal neuro/vascular/tendon intact. Anesthesia: Local anesthetic administered with 4 mls of 1% lidocaine. Wound prep: Extensive cleansing with hibiclenz by me, Wound irrigation with saline by me, Particulate matter removal of gravel by me, Wound explored extensively, Copious irrigation. Skin closed with 6 4-0 Prolene using simple sutures and sterile technique. Dressed with 4x4's. Patient tolerated well. MDM: 10:07 Patient medically screened. pm1 12:30 Data reviewed: vital signs. Data interpreted: Pulse oximetry: on room air is 95 %. pm1 Interpretation: normal. Counseling: I had a detailed discussion with the patient and/or guardian regarding: the historical points, exam findings, and any diagnostic results supporting the discharge/admit diagnosis, radiology results, the need for outpatient follow up, to return to the emergency department if symptoms worsen or persist or if there are any questions or concerns that arise at home. 12:30 Special discussion: I discussed in detail with the patient the higher chance of wound pm1 infection based on his presenting history. 08/12 10:28 Order name: CT Head Brain wo Cont; Complete Time: 11:14 pm1 08/12 10:28 Order name: Hand Right 3 View XRAY; Complete Time: 11:31 pm1 08/12 10:28 Order name: Knee Left 3 View XRAY; Complete Time: 11:31 pm1 08/12 10:28 Order name: Dressing - Wound; Complete Time: 12:27 pm1 08/12 10:28 Order name: Gloves, Sterile; Complete Time: 12:27 pm1 08/12 10:28 Order name: Prolene, Sutures; Complete Time: 12:27 pm1 08/12 10:28 Order name: Setup Suture Tray; Complete Time: 10:31 pm1 Administered Medications: 11:17 Drug: Tetanus-Diphtheria Toxoid Adult 0.5 ml {Quality Specialist: [employer] Exp: jl7 05/10/2023. Lot #: [id number]. } Route: IM; Site: right vastus lateralis; 12:39 Follow up: Response: No adverse reaction jl7 12:00 Drug: Lidocaine (1 %) 5 ml {Note: administered by ERP.} Volume: 5 ml; Route: jl7 Infiltration; 12:38 Follow up: Response: No adverse reaction jl7 Disposition Summary: 08/12/22 12:32 Discharge Ordered Location: Home pm1 Problem: new pm1 Symptoms: have improved pm1 Condition: Stable pm1 Diagnosis - Fall on same level, unspecified pm1 - Contusion of left knee pm1 - Laceration with foreign body of right hand, initial encounter - foreign bodies pm1 removed Followup: pm1 - With: Emergency Department - When: As needed - Reason: Worsening of condition Followup: pm1 - With: Private Physician - When: 2 - 3 days - Reason: Recheck today's complaints, Continuance of care, Re-evaluation by your physician Followup: pm1 - With: Tru Haider MD - When: 2 - 3 days - Reason: Recheck today's complaints, Continuance of care, Re-evaluation by your physician Discharge Instructions: - Discharge Summary Sheet pm1 - Contusion pm1 - Facial or Scalp Contusion pm1 - Head Injury, Adult pm1 - Fall Prevention in the Home, Adult pm1 - Laceration Care, Adult pm1 Forms: - Medication Reconciliation Form pm1 - Thank You Letter pm1 - Antibiotic Education pm1 - Prescription Opioid Use pm1 Prescriptions: - Doxycycline Hyclate 100 mg Oral Tablet - take 1 tablet by ORAL route every 12 hours; 20 tablet; Refills: 0, Product pm1 Selection Permitted Signatures: Dispatcher [employer] Kwasi Christian, CITRIX ENGINEER CITRIX ENGINEER pm1 Yash Martínez, RN RN jl7 Debbi Romano RN RN ll1
--- NOTE | 2022-08-12 12:33 | ER ---
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 L ll1 eyebrow area hematoma. Abrasions L hand and L knee. Laceration to R hand near thumb area, bleeding controlled. Takes Eliquis daily. Coronavirus screen: Vaccine status: Patient reports receiving the 2nd dose of the covid vaccine. Client denies travel out of the [place] in the last 14 days. At this time, the client does not indicate any symptoms associated with coronavirus-19. Ebola Screen: Patient denies travel to an Ebola-affected area in the 21 days before illness onset. Initial Sepsis Screen: Does the patient meet any 2 criteria? No. Patient's initial sepsis screen is negative. Does the patient have a suspected source of infection? Yes: Bone or joint infection. Risk Assessment: Do you want to hurt yourself or someone else? Patient reports no desire to harm self or others. Onset of symptoms was August 12, 2022. 10:19 Method Of Arrival: Ambulatory ll1 10:19 Acuity: RAMEZ 2 ll1 10:22 Care prior to arrival: None. Mechanism of Injury: Fall. Trauma event details: Injury ll1 occurred in the [facility]. Trauma Activation: Alert Physician: ED Physician; Name: Hailey Smiley; Notified At: 10:19; Arrived At: 10:19 Physician: General Surgeon; Name: ; Notified At: 10:19; Arrived At: Specialty not needed Physician: Radiology; Name: ; Notified At: 10:19; Arrived At: Physician: Respiratory; Name: ; Notified At: 10:19; Arrived At: Specialty not needed Physician: Lab; Name: ; Notified At: 10:19; Arrived At: Historical: - Allergies: 10:21 No Known Allergies; ll1 - PMHx: 10:21 Hypertensive disorder; Hypercholesterolemia; breast CA; ll1 - PSHx: 10:21 B mastectomy; ll1 - Immunization history:: Client reports receiving the 2nd dose of the Covid vaccine. - Social history:: Smoking status: Patient/guardian denies using tobacco, the patient reports quitting approximately 13 years ago. - Immunization history: Last tetanus immunization: unknown. Screenin:30 [facility] ED Fall Risk Assessment (Adult) History of falling in the last 3 months, jl7 including since admission Yes- single mechanical fall (1 pt) Confusion or Disorientation No (0 pts) Intoxicated or Sedated No (0 pts) Impaired Gait No (0 pts) Mobility Assist Device Used No (0 pt) Altered Elimination No (0 pt) Score/Fall Risk Level 0 - 2 = Low Risk Oriented to surroundings, Maintained a safe environment, Educated pt \T\ family on fall prevention, incl call for assistance when getting out of bed, Assessed \T\ reinforced patient's understanding of fall precautions, Hourly rounding (assess needs \T\ fall precautionary measures) done. Nutritional screening: No deficits noted. 10:31 Abuse screen: Denies threats or abuse. Denies injuries from another. Tuberculosis jl7 screening: No symptoms or risk factors identified. Primary Survey: 10:23 NO uncontrolled hemorrhage observed. A: The client is awake and alert. The airway is ll1 patent. Breathing/Chest: Spontaneous respiratory effort, equal unlabored respirations, breath sounds clear bilaterally, regular pattern, symmetrical chest rise and fall. Circulation: No external hemorrhage present. Regular and strong central pulse, skin warm/dry/normal color. Disability Client is alert. Exposure/Environment: Obvious injury(ies) are noted at this time: L arm/leg. R hand. L eyebrow. 11:00 Reassessment Breathing: Spontaneous respiratory effort, equal unlabored respirations, jl7 breath sounds clear bilaterally, regular pattern with symmetrical chest rise and fall. Secondary Survey: 10:24 Musculoskeletal: Circulation, motion, and sensation intact. Capillary refill < 3 ll1 seconds, Reports pain in right arm, left arm and left leg. Assessment: 12:35 General: Appears in no apparent distress. uncomfortable, Behavior is calm, cooperative, jl7 appropriate for age. Pain: Complains of pain in left knee and right hand and heel of right hand and left leg and left arm and right arm Pain currently is 6 out of 10 on a pain scale. Neuro: Level of Consciousness is awake, alert, obeys commands, Oriented to person, place, time, situation. Cardiovascular: Patient's skin is warm and dry. Respiratory: Airway is patent Respiratory effort is even, unlabored, Respiratory pattern is regular, symmetrical. Derm: Skin is pink, warm \T\ dry. Bruising that is dark purple, on outer aspect of left eyebrow. Musculoskeletal: Swelling present in right knee and left knee. Injury Description: Avulsion sustained to heel of right hand is partial. Vital Signs: 10:19 BP 176 / 114; Pulse 93; Resp 18; Temp 97.6; Pulse Ox 98% ; Pain 5/10; ll1 10:31 BP 149 / 75; Pulse 90; Resp 15; Pulse Ox 98% ; Pain 5/10; jl7 11:18 BP 157 / 83; Pulse 72; Resp 15; Pulse Ox 95% ; Weight 68.04 kg; Pain 6/10; jl7 12:15 BP 149 / 75; Pulse 70; Resp 15; Pulse Ox 95% ; jl7 [place] Coma Score: 10:31 Eye Response: spontaneous(4). Verbal Response: oriented(5). Motor Response: obeys jl7 commands(6). Total: 15. 11:18 Eye Response: spontaneous(4). Verbal Response: oriented(5). Motor Response: obeys jl7 commands(6). Total: 15. 12:15 Eye Response: spontaneous(4). Verbal Response: oriented(5). Motor Response: obeys jl7 commands(6). Total: 15. Trauma Score (Adult): 10:31 Eye Response: spontaneous(1); Verbal Response: oriented(1); Motor Response: obeys jl7 commands(2); Systolic BP: > 89 mm Hg(4); Respiratory Rate: 10 to 29 per min(4); [place] Score: 15; Trauma Score: 12 ED Course: 10:02 Patient arrived in ED. rg4 10:04 Arm band placed on Patient placed in an exam room, on a stretcher. ll1 10:06 Kwasi Wilson NP is PHCP. pm1 10:06 Jerzy Smiley MD is Attending Physician. pm1 10:10 Pulse ox on. NIBP on. jl7 10:10 Warm blanket given. jl7 10:17 Yash Martínez RN is Primary Nurse. jl7 10:21 Triage completed. ll1 10:31 Patient has correct armband on for positive identification. Placed in gown. Bed in low jl7 position. Call light in reach. Side rails up X2. 10:31 Patient maintains SpO2 saturation greater than 95% on room air. Thermoregulation: warm jl7 blanket given to patient. 10:40 CT Head Brain wo Cont In Process Unspecified. EDMS 11:08 Hand Right 3 View XRAY In Process Unspecified. EDMS 11:08 Knee Left 3 View XRAY In Process Unspecified. EDMS 12:20 Assist provider with laceration repair on heel of right hand that was between 2.6 to jl7 7.5 cm using sutures. Set up tray. Performed by Kwasi Wilson RETAIL ROUTE SUPERVISOR Dressed with 4X4s, Neosporin, Patient tolerated well. 12:40 Patient did not have IV access during this emergency room visit. jl7 12:42 Tru Haider MD is Referral Physician. 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 Exp: jl7 05/10/2023. Lot #: [id number]. } Route: IM; Site: right vastus lateralis; 12:39 Follow up: Response: No adverse reaction jl7 12:00 Drug: Lidocaine (1 %) 5 ml {Note: administered by ERP.} Volume: 5 ml; Route: jl7 Infiltration; 12:38 Follow up: Response: No adverse reaction jl7 Medication: 12:41 Vaccine Information Statement (VIS) provided today. Questions and/or concerns jl7 addressed. VIS edition date: March 22, 2021. Intake: 13:04 PO: 0ml; IV: 0ml; Tubes: 0ml (); Total: 0ml. jl7 Output: 13:04 Urine: 0ml; Gastric: 0ml; Stool: 0; EBL: 0ml; Drainage: 0ml; Other: 0; Total: 0ml. jl7 Outcome: 12:32 Discharge ordered by . pm1 12:41 Discharged to home ambulatory, with family. jl7 12:41 Condition: stable 12:41 Discharge instructions given to patient, family, Instructed on discharge instructions, follow up and referral plans. medication usage, wound care, Demonstrated understanding of instructions, follow-up care, medications, wound care, Prescriptions given X 1. 13:04 Patient's length of stay was not longer than 2 hours. jl7 13:04 Patient left the ED. jl7 Signatures: Dispatcher [employer] EDOK Kwasi Wilson NP RETAIL ROUTE SUPERVISOR pm1 Isidra Caldwell rg4 Yash Martínez RN RN jl7 Debbi Romano RN RN ll1
[2022-08-12 13:08] VITALS: TEMP 97.6
[2022-08-12 13:11] VITALS: O2SAT 95
[2022-08-12 13:12] VITALS: BP 149/75
== END 2022-08-12 13:04 | disposition home or self-care (01) ==
LOC: ER 10:01
PROC: 0JQJ0ZZ Repair Right Hand Subcutaneous Tissue and Fascia, Open Approach (ICD-10-PCS; principal; 2022-08-12)
DX: S61.421A Laceration with foreign body of right hand, initial encounter (principal); S80.02XA Contusion of left knee, initial encounter; W18.30XA Fall on same level, unspecified, initial encounter; Z23 Encounter for immunization; I10 Essential (primary) hypertension
CPT/HCPCS: 70450; 73130; 73562; 12002; J2001; 90471; 99284

== ENCOUNTER 2023-08-06 10:30 | Day surgery (SDC) | payer OTHER ==
--- NOTE | 2023-08-04 11:29 | RAD REPORT ---
EXAM DESCRIPTION: RAD - Chest Pa And Lat (2 Views) - 08/04/2023 11:22 am CLINICAL HISTORY: Pre op pending heart catheterization COMPARISON: Chest Pa And Lat (2 Views) dated 07/21/2022; Chest Pa And Lat (2 Views) dated 05/31/2018; Abdomen Pelvis Wo Contrast dated 07/15/2022 FINDINGS: Lines: Right IJ approach Port-A-Cath with tip overlying the SVC. Lungs: No evidence of edema or pneumonia. Pleural: No significant pleural effusions or pneumothorax. Cardiac: Aortic valve prosthesis. Similar size of the cardiac silhouette. Mediastinum: Within normal limits. Bones: Remote appearing thoracic and lumbar compression fracture. Kyphoplasty changes in the lower sp ine . Other: Surgical clips in both axilla. IMPRESSION: No acute cardiopulmonary disease.
[2023-08-04 11:41] LABS: Protime INR 1.19
--- NOTE | 2023-08-04 11:46 | EKG ---
Test Date: 2023-08-04 Test Time: 11:28:39 [employer] Port Director: JESIKA MEASUREMENT RESULTS: Intervals: Rate: 76 ND: 172 QRSD: 148 QT: 388 QTc: 436 [place]: P: 35 ND: 172 QRS: -4 T: 47 INTERPRETIVE STATEMENTS: Normal sinus rhythm Left bundle branch block Abnormal ECG Compared to ECG 05/27/2018 10:50:02 Left bundle-branch block now present Electronically Signed On 08-04-23 11:45:31 RESEARCH AND DEVELOPMENT SCIENTIST by Romeo Metz
[2023-08-04 12:12] LABS: Potassium 3.8 mEq/L (3.5-5.1)
[2023-08-06] MEDS ORDERED: NA CHLORIDE 0.9% 500 ML ONE (11:20)
[2023-08-06] MEDS ORDERED: HEPA 1000U/500MLS 2,000 UNIT/1,000 ML BAG IV ONE (11:58)
[2023-08-06] MEDS ORDERED: LIDOCAINE 1% 20 ML MDV ONE (11:58)
[2023-08-06] MEDS ORDERED: FENTANYL CITR 100 MCG/2 ML ONE (12:08)
[2023-08-06] MEDS ORDERED: MIDAZOLAM HCL 2 MG/2 ML INJ ONE (12:08)
[2023-08-06] MEDS ORDERED: TICAGRELOR 90 MG TABLET PO ONE (12:08)
[2023-08-06] MEDS ORDERED: ASPIRIN 325 MG TAB ONE (12:09)
[2023-08-06] MEDS ORDERED: HEPARIN 10,000 UNIT/10 ML VIAL IV ONE (12:09)
[2023-08-06] MEDS ORDERED: CLOPIDOGREL 75 MG TABLET ONE (12:09)
[2023-08-06] MEDS ORDERED: ATROPINE SULF 1 MG/10 ML SYR IV ONE (12:10)
[2023-08-06 14:12] VITALS: TEMP 97.9
[2023-08-06] MEDS ORDERED: HEPARIN 500 UNIT/5 ML SYR IV ONE (15:57)
[2023-08-06 16:15] VITALS: BP 163/60; O2SAT 94
== END 2023-08-06 16:12 | disposition home or self-care (01) ==
LOC: CCL 10:30
PROVIDERS: ATTEND Internal Medicine
DX: I25.10 Atherosclerotic heart disease of native coronary artery without angina pectoris (principal); I35.0 Nonrheumatic aortic (valve) stenosis; I44.7 Left bundle-branch block, unspecified; I11.0 Hypertensive heart disease with heart failure; I50.9 Heart failure, unspecified; E11.9 Type 2 diabetes mellitus without complications; E78.2 Mixed hyperlipidemia; I65.22 Occlusion and stenosis of left carotid artery; F17.210 Nicotine dependence, cigarettes, uncomplicated; Z79.01 Long term (current) use of anticoagulants; Z79.82 Long term (current) use of aspirin; Z79.899 Other long term (current) drug therapy
CPT/HCPCS: 93005 ×2; 80048; 36415; 85610; 82947; 85730; 71046; 93454; 76937; C1893; C1760; Q9967; G0269; J2001; J2250; J3010; J1642 ×2; J7040; 99152; 99153; J0461

== ENCOUNTER 2024-02-17 16:32 | Inpatient (IN) | payer OTHER ==
[2024-02-17 17:26] LABS: Absolute Basophils 0.1 K/uL (0-0.5); Absolute Lymphocytes (CBC) 0.7 K/uL (0.7-4.9); Absolute Monocytes 0.8 K/uL (0.1-1.3); Basophils % 0.7 % (0-1.3); Eosinophils % 0.3 % (0-4.4); Hematocrit 38.3 % (36.0-45.0); Lymphocytes % 6.3 % (15.3-44.8); MCH 30.5 pg (27.0-35.0); MCHC 33.9 g/dL (32.0-36.0); MCV 89.9 fL (80-100); Monocytes % 6.8 % (3.3-12.3); Neutrophils % 85.9 % (41.7-73.7); PT Prothrombin Time 14.3 SECONDS (9.4-12.5); Platelets 245 thou/uL (152-406); Protime INR 1.31; RBC Red Blood Cell Count 4.26 M/uL (3.86-4.86); Red Cell Distribution Width 16.3 % (12.1-15.2)
--- NOTE | 2024-02-17 17:26 | RAD REPORT ---
EXAM DESCRIPTION: RAD - Chest Single View - 02/17/2024 5:18 pm CLINICAL HISTORY: fall Chest pain. COMPARISON: <Comparisons> FINDINGS: Portable technique limits examination quality. The lungs are grossly clear. The heart is normal in size. No displaced fractures.Right port catheter tubing has its tip in the SVC. IMPRESSION: No acute intrathoracic process suspected.
--- NOTE | 2024-02-17 17:36 | RAD REPORT ---
EXAM DESCRIPTION: CT - Head C Spine Cap Wo Con - 02/17/2024 5:22 pm CLINICAL HISTORY: Trauma, head and neck injury. Chest, abdomen and pelvis pain. fall, weakness COMPARISON: <Comparisons> TECHNIQUE: CT head without contrast. CT cervical spine without contrast with coronal and sagittal reformatted images. CT chest, abdomen and pelvis without contrast with coronal and sagittal reformatted images of the [facility]. All CT scans are performed using dose optimization technique as appropriate and may include automated exposure control or mA/KV adjustment according to patient size. FINDINGS: CT HEAD WITHOUT CONTRAST: No intracranial hemorrhage, hydrocephalus or extra-axial fluid collection. Moderate brain atrophy. No areas of brain edema or midline shift. Moderate multifocal paranasal sinus opacification. The calvarium is intact. CT CERVICAL SPINE WITHOUT CONTRAST: No fracture or subluxation. Mild lower cervical spondylosis. The prevertebral soft tissues are normal in thickness. CT CHEST, ABDOMEN, PELVIS WITHOUT CONTRAST: NOTE: Lack of contrast is a significant limitation in the assessment of trauma related findings. Spec ifically, solid organ, vascular and bowel evaluation is significantly limited. The lungs are emphysematous but clear.Large hiatal hernia.No pneumothorax or pericardial/pleural flui d. No evidence of intra-abdominal visceral injury, free fluid or free air is seen within the above detai led limitations. Benign cysts are present in both kidneys. Significant stool is present throughout the colon. L1 compression deformity is present, with sclerosis along the superior margin, likely chronic. T11 ve rtebroplasty cement. IMPRESSION: Negative for acute traumatic findings within the above detailed limitations.
[2024-02-17 17:50] LABS: Albumin 3.4 g/dL (3.4-5.0); Albumin/Globulin Ratio 1.1 (1.1-1.8); Anion Gap 9.4 mEq/L (5.0-15.0); Bilirubin Direct 0.3 mg/dL (0-0.2); Bilirubin Indirect, Calculated 0.6 mg/dL (0.2-0.8); Bilirubin Total 0.9 mg/dL (0.2-1.0); Magnesium 2.1 mg/dL (1.6-2.4); Potassium 3.4 mEq/L (3.5-5.1); Protein, Total 6.4 g/dL (6.4-8.2); Troponin High Sensitivity 10.9 pg/mL (<58.9)
[2024-02-17] MEDS ORDERED: NA CHLORIDE 0.9% 500 ML ONE (20:44)
--- NOTE | 2024-02-17 23:17 | EDPHYS ---
Physician Documentation [facility] Name: Veronique Keller Age: 88 yrs Sex: Female : 1935 Arrival Date: 02/17/2024 Time: 16:32 Bed 16 Private MD: ED Physician Jerzy Smiley HPI: 02/16 16:55 This 88 yrs old Female presents to ER via EMS with complaints of Fall Injury. cp 16:55 Details of fall: The patient fell from an upright position, while standing. Onset: The cp symptoms/episode began/occurred this morning. 16:55 Associated injuries: The patient sustained hips and pelvis after landing onto bottom. cp 16:55 Patient reports falling twice since yesterday after legs becoming weak. Was unable to cp get up from ground after fall yesterday and had to be assisted by staff at apartments who helped her up and into chair. Fell again this morning and was on ground until EMS arrived this afternoon. Historical: - Allergies: 17:18 No Known Allergies; ko1 - Home Meds: 17:18 Unable to obtain [Active]; ko1 - PMHx: 17:18 BREAST CA; Hypercholesterolemia; Hypertensive disorder; ko1 - PSHx: 17:18 B mastectomy; ko1 - Immunization history:: Adult Immunizations up to date. - Infectious Disease History:: Denies. - Immunization history: Last tetanus immunization: - up to date. < 5 years ago. - Social history:: Smoking status: Patient denies any tobacco usage or history of. ROS: 17:00 Constitutional: Negative for body aches, chills, fever, poor PO intake, cp 17:00 Eyes: Negative for injury, pain, redness, and discharge, cp 17:00 ENT: Negative for drainage from ear(s), ear pain, sore throat, difficulty swallowing, difficulty handling secretions, 17:00 Neck: Negative for pain with movement, pain at rest, stiffness, 17:00 Cardiovascular: Negative for chest pain, 17:00 Respiratory: Negative for cough, shortness of breath, wheezing, 17:00 Abdomen/GI: Negative for abdominal pain, vomiting, diarrhea, constipation, 17:00 Neuro: Positive for weakness, Negative for altered mental status, headache, loss of consciousness, syncope, 17:00 All other systems are negative, Exam: 17:05 Constitutional: The patient appears in no acute distress, alert, awake, cp non-diaphoretic, non-toxic, well developed, well nourished, 17:05 Head/Face: Normocephalic, atraumatic. cp 17:05 Eyes: Periorbital structures: appear normal, Conjunctiva: normal, no exudate, no injection, Sclera: no appreciated abnormality, Lids and lashes: appear normal, bilaterally, 17:05 ENT: External ear(s): are unremarkable, Nose: is normal, Mouth: Lips: moist, Oral mucosa: moist, Posterior pharynx: Airway: no evidence of obstruction, patent, 17:05 Neck: C-spine: vertebral tenderness, is not appreciated, crepitus, is not appreciated, ROM/movement: is normal, is supple, without pain, no range of motions limitations, 17:05 Chest/axilla: Inspection: normal, Palpation: is normal, no crepitus, no tenderness, 17:05 Cardiovascular: Rate: normal, Rhythm: regular, Edema: is not appreciated, JVD: is not appreciated, 17:05 Respiratory: the patient does not display signs of respiratory distress, Respirations: normal, no use of accessory muscles, no retractions, labored breathing, is not present, Breath sounds: are clear throughout, no decreased breath sounds, no stridor, no wheezing, 17:05 Abdomen/GI: Inspection: abdomen appears normal, Palpation: abdomen is soft and non-tender, in all quadrants, 17:05 Back: vertebral tenderness, is not appreciated, 17:05 Musculoskeletal/extremity: Exam is negative for decreased range of motion, deformity, 17:05 Neuro: Orientation: to person, place \T\ time. Mentation: able to follow commands, Motor: moves all fours, no focal deficits, Sensation: is normal, 18:00 ECG was reviewed by the Attending Physician. cp Vital Signs: 17:18 BP 117 / 84; Pulse 86; Resp 16; Temp 97; Pulse Ox 99% ; ko1 19:05 BP 114 / 68; Pulse 78; Resp 15; Pulse Ox 100% on R/A; me1 20:00 BP 118 / 71; Pulse 82; Resp 16; Pulse Ox 100% on R/A; me1 21:00 BP 115 / 80; Pulse 73; Resp 16; Pulse Ox 99% on R/A; me1 22:00 BP 116 / 58; Pulse 82; Resp 15; Pulse Ox 99% on R/A; me1 23:00 BP 118 / 61; Pulse 76; Resp 17; Pulse Ox 100% on R/A; de1 0704 00:00 BP 119 / 61; Pulse 75; Resp 16 S; Pulse Ox 100% on R/A; jw7 01:27 BP 113 / 56; Pulse 87; Resp 15 S; Pulse Ox 100% on R/A; jw7 Nancie Coma Score: 02/16 17:18 Eye Response: spontaneous(4). Motor Response: obeys commands(6). Verbal Response: ko1 oriented(5). Total: 15. Trauma Score (Adult): 17:18 Eye Response: spontaneous(1); Verbal Response: oriented(1); Motor Response: obeys ko1 commands(2); Systolic BP: > 89 mm Hg(4); Respiratory Rate: 10 to 29 per min(4); Nancie Score: 15; Trauma Score: 12 MDM: 16:52 Patient medically screened. 18:00 Differential diagnosis: closed head injury, contusion, fracture, multiple trauma. 23:15 Data reviewed: vital signs, nurses notes, lab test result(s), EKG, radiologic studies, cp CT scan, plain films, and as a result, I will admit patient. 23:15 Management of patient was discussed with the following: Hospitalist: DR Manriquez will cp admit after discussion. I considered the following discharge prescriptions or medication management in the emergency department Medications were administered in the Emergency Department. See OCT. 02/16 16:52 Order name: Basic Metabolic Panel; Complete Time: 19:03 02/16 19:03 Interpretation: Normal except: K 3.4; GLUC 139; BUN 49; CRE 1.87; GFR 26. 02/16 16:52 Order name: CBC with Diff; Complete Time: 19:03 02/16 16:52 Order name: LFT's; Complete Time: 19:03 02/16 16:52 Order name: Magnesium; Complete Time: 19:03 02/16 16:52 Order name: NT PRO-BNP; Complete Time: 19:03 02/16 16:52 Order name: PT-INR; Complete Time: 19:03 02/16 16:52 Order name: Troponin HS; Complete Time: 19:03 cp 02/16 16:52 Order name: Urinalysis W/Microscopic; Complete Time: 00:31 cp 02/16 19:04 Order name: CK; Complete Time: 23:15 cp 02/17 00:12 Order name: Creatine Phosphokinase EDVT 02/17 00:12 Order name: UR CREAT EDVT 02/17 00:12 Order name: UR SODIUM EDVT 02/17 00:12 Order name: CBC with Automated Diff EDMS 02/17 00:12 Order name: CBC with Automated Diff EDMS 02/17 00:12 Order name: Comprehensive Metabolic Panel EDMS 02/17 00:12 Order name: Comprehensive Metabolic Panel EDVT 02/17 00:12 Order name: Lipid Profile EDVT 02/17 00:12 Order name: Lipid Profile EDVT 02/17 00:12 Order name: Magnesium EDVT 02/17 00:12 Order name: Magnesium EDVT 02/17 00:12 Order name: Magnesium EDVT 02/17 00:12 Order name: Magnesium EDVT 02/16 16:52 Order name: XRAY Chest (1 view); Complete Time: 19:03 cp 02/16 16:52 Order name: CT Traumagram (Head C Spine CAP wo con); Complete Time: 19:03 cp 02/17 00:12 Order name: CONS Physician Consult EDVT 02/17 00:12 Order name: Occupational Therapy Consult EDVT 02/17 00:12 Order name: Physical Therapy Consult EDVT 02/16 16:52 Order name: Cardiac monitoring; Complete Time: 17:15 cp 02/16 16:52 Order name: EKG - Nurse/Tech; Complete Time: 17:54 cp 02/16 16:52 Order name: IV Saline Lock; Complete Time: 17:15 cp 02/16 16:52 Order name: Labs collected and sent; Complete Time: 17:15 cp 02/16 16:52 Order name: O2 Per Protocol; Complete Time: 16:53 cp 02/16 16:52 Order name: O2 Sat Monitoring; Complete Time: 16:53 cp EC:00 Rate is 77 beats/min. Rhythm is regular. OH interval is normal. QRS interval is cp prolonged at 146 msec. QT interval is prolonged. Interpreted by me. Reviewed by me. Administered Medications: 20:55 Drug: NS 0.9% IV 500 ml IV at bolus once Route: IV; Rate: bolus; Site: Port-a-cath; de1 22:28 Follow up: Response: No adverse reaction; IV Status: Completed infusion; IV Intake: me1 500ml 02/17 00:27 Drug: Potassium PO Effervescent Tablet 25 mEq PO once; dissolve in 4 ounces of water or jw7 juice Route: PO; 01:03 Follow up: Response: No adverse reaction jw7 00:55 Drug: Rocephin IV 1 grams IV at calculated rate once; Given slow IV push per pharmacy jw7 instructions Route: IV; Rate: calculated rate; Site: Port-a-cath; 01:23 Follow up: Response: No adverse reaction; IV Status: Completed infusion; IV Intake: [id number] Disposition Summary: 02/17/24 23:17 Hospitalization Ordered Notes: Provider: Gonzalez Manriquez cp Condition: Stable cp Problem: new cp Symptoms: are unchanged cp Bed/Room Type: Standard cp Hospitalization Status: Inpatient Admission(02/18/24 00:32) cp [facility] cp Room Assignment: [facility](02/18/24 00:38) vk Diagnosis - Weakness cp - Fall on same level, unspecified cp - Repeated falls cp - UTI/ Urinary tract infection, site not specified cp Forms: - Medication Reconciliation Form cp - SBAR form cp - Leadership Thank You Letter cp Addendum: 02/20/2024 07:45 Co-signature as Attending Physician, Jerzy Smiley MD I agree with the assessment and c nation plan of care. Signatures: Dispatcher [employer] Jerzy Leyva MD MD cha Page, Corey, PA PA cp Anne Santo, RN RN jw7 Diana Hassan RN RN Saloni Murphy, RN RN me1 Gissell Cleveland Corrections: (The following items were deleted from the chart) 02/16 16:53 16:53 BASIC METABOLIC PANEL+C.LAB.BRZ ordered. EDMS EDMS 16:53 16:53 CBC+H.LAB.BRZ ordered. EDMS EDMS 16:53 16:53 HEPATIC FUNCTION+C.LAB.BRZ ordered. EDMS EDMS 16:53 16:53 MAGNESIUM+C.LAB.BRZ ordered. EDMS EDMS 16:53 16:53 PROBNP+C.LAB.BRZ ordered. EDMS EDMS 16:53 16:53 PROTIME (+INR)+COAG.LAB.BRZ ordered. EDMS EDMS 16:53 16:53 Troponin High Sensitivity+C.LAB.BRZ ordered. EDMS EDMS 16:53 16:53 Chest Single View+RAD.RAD.BRZ ordered. EDMS EDMS 16:53 16:53 Head C Spine Cap Wo Con+CT.RAD.BRZ ordered. EDMS EDMS 16:53 16:53 Urinalysis W/Microscopic+U.LAB.BRZ ordered. EDMS EDMS 22:39 21:39 Kirkpatrick ordered. cp me1 02/17 00:15 02/16 23:17 cp vk 02/17 00:32 02/16 23:17 Observation cp 02/17 00:32 02/16 23:17 Telemetry/MedSurg (observation) cp cp 02/17 00:32 00:15 406 vk cp 00:38 00:32 cp vk
--- NOTE | 2024-02-17 23:17 | ER ---
Nurse's Notes [facility] Name: Veronique Keller Age: 88 yrs Sex: Female : 1935 Arrival Date: 02/17/2024 Time: 16:32 Bed 16 Private MD: Diagnosis: Weakness;Fall on same level, unspecified;Repeated falls;UTI/ Urinary tract infection, site not specified Presentation: 02/16 17:18 Chief complaint: EMS states: [facility] [place] [facility] community, fell last night and ko1 again this morning. She is on eliquis, did not loose consciousness. She states her legs are abnormally shaky. she normally drives and gets around independently. Care prior to arrival: None. Mechanism of Injury: Fall from standing position. Trauma event details: Injury occurred in the [facility], Injury occurred: at home. Injury occurred: February 17, 2024 Injury occurred at: 02:00. 17:18 Acuity: RAMEZ 3 ko1 17:18 Method Of Arrival: EMS: [facility] ko1 22:38 Coronavirus screen: Vaccine status: Patient reports receiving the 2nd dose of the covid me1 vaccine. Ebola Screen: No symptoms or risks identified at this time. Initial Sepsis Screen: Does the patient meet any 2 criteria? No. Patient's initial sepsis screen is negative. Does the patient have a suspected source of infection? No. Patient's initial sepsis screen is negative. Risk Assessment: Do you want to hurt yourself or someone else? Patient reports no desire to harm self or others. Onset of symptoms was February 16, 2024. Trauma Activation: Not Applicable Physician: ED Physician; Name: ; Notified At: ; Arrived At: Physician: General Surgeon; Name: ; Notified At: ; Arrived At: Physician: Radiology; Name: ; Notified At: ; Arrived At: Physician: Respiratory; Name: ; Notified At: ; Arrived At: Physician: Lab; Name: ; Notified At: ; Arrived At: Historical: - Allergies: 17:18 No Known Allergies; ko1 - Home Meds: 17:18 Unable to obtain [Active]; ko1 - PMHx: 17:18 BREAST CA; Hypercholesterolemia; Hypertensive disorder; ko1 - PSHx: 17:18 B mastectomy; ko1 - Immunization history:: Adult Immunizations up to date. - Infectious Disease History:: Denies. - Immunization history: Last tetanus immunization: - up to date. < 5 years ago. - Social history:: Smoking status: Patient denies any tobacco usage or history of. Screenin:16 [facility] ED Fall Risk Assessment (Adult) History of falling in the last 3 months, ko1 including since admission Yes- fall prone (multiple falls) (3 pts) Confusion or Disorientation No (0 pts) Intoxicated or Sedated No (0 pts) Impaired Gait Yes (1 pt) Mobility Assist Device Used No (0 pt) Altered Elimination No (0 pt) Score/Fall Risk Level 3 or more points = High Risk Oriented to surroundings, Maintained a safe environment, Educated pt \T\ family on fall prevention, incl call for assistance when getting out of bed, Assessed \T\ reinforced patient's understanding of fall precautions, Provided non-skid footwear, Hourly rounding (assess needs \T\ fall precautionary measures) done, Used ambulatory aids as needed (educated on \T\ assisted with), Used gait belt as appropriate Implemented a Fall Risk Plan of Care, Remained w/in arm's length of patient and in sight while toileting, Offered frequent toileting (1:1 observation), Remained with patient while ambulating, Utilized family, sitter, or virtual grill cook as indicated. Abuse screen: Denies threats or abuse. Denies injuries from another. Nutritional screening: No deficits noted. Tuberculosis screening: No symptoms or risk factors identified. Primary Survey: 17:18 NO uncontrolled hemorrhage observed. A: The client is awake and alert. The airway is ko1 patent. The client is alert. Airway: patent, No supplemental oxygen in use on arrival. Oral cavity: clear, Trachea midline. Breathing/Chest: Spontaneous respiratory effort, equal unlabored respirations, breath sounds clear bilaterally, regular pattern, symmetrical chest rise and fall. Respiratory effort: spontaneous, unlabored, Breath sounds: clear, bilaterally. Respiratory pattern: regular, Chest inspection: symmetrical rise and fall of the chest. Circulation: No external hemorrhage present. Regular and strong central pulse, skin warm/dry/normal color. Disability Pupils are equal, round, reactive to light and accommodation. Client is alert. Exposure/Environment: All clothing and personal items were removed. There is no evidence of uncontrolled external bleeding. No obvious injuries are noted at this time. A warming method has been applied: A warm blanket has been provided to the patient. 17:30 Reassessment Alertness and Airway: Awake and alert. The airway is patent. Breathing: ko1 Spontaneous respiratory effort, equal unlabored respirations, breath sounds clear bilaterally, regular pattern with symmetrical chest rise and fall. Respiratory effort Spontaneous Unlabored Circulation: No external hemorrhage noted. Regular and strong central pulse, skin warm/dry/normal color. Disability: Pupils Pupils are equal, round, reactive to light and accomodation. Alert. Secondary Survey: 22:37 HEENT: No deficits noted. Gastrointestinal: No deficits noted. : No signs and/or me1 symptoms were reported regarding the genitourinary system. Musculoskeletal: No signs and/or symptoms reported regarding the musculoskeletal system. Injury Description: fall from standing. Assessment: 17:18 General: Appears in no apparent distress. Behavior is calm, cooperative, appropriate ko1 for age. Pain: Denies pain. 17:22 Neuro: No deficits noted. Cardiovascular: No deficits noted. Respiratory: No deficits ko1 noted. GI: No deficits noted. : No deficits noted. EENT: No deficits noted. Derm: Reports recent shingles. Musculoskeletal: Circulation, motion, and sensation intact. legs shaky, very unsteady. 17:57 Reassessment: took patient to the restroom, she was unable to give urine at this time. ko1 07/04 00:00 General: Appears in no apparent distress. comfortable, Behavior is calm, cooperative, jw7 appropriate for age. Pain: Complains of pain in Bilateral Hips Pain does not radiate. Pain currently is 3 out of 10 on a pain scale. Quality of pain is described as dull, throbbing, Is intermittent. Neuro: Level of Consciousness is awake, alert, obeys commands, Oriented to person, place, time, situation, Appropriate for age. Cardiovascular: Heart tones S1 S2 present Capillary refill < 3 seconds Clubbing of nail beds is absent JVD is absent Patient's skin is warm and dry. Respiratory: Airway is patent Trachea midline Respiratory effort is even, unlabored, Respiratory pattern is regular, symmetrical. 00:00 GI: Abdomen is flat, non-distended, Bowel sounds present X 4 quads. Abd is soft and non jw7 tender X 4 quads. : No deficits noted. No signs and/or symptoms were reported regarding the genitourinary system. EENT: No deficits noted. No signs and/or symptoms were reported regarding the EENT system. Derm: Skin is intact, is healthy with good turgor, Skin is dry, Skin is normal, Skin temperature is warm. Musculoskeletal: Circulation, motion, and sensation intact. Range of motion: intact in all extremities, Legs shaky upon standing, and unsteady. 01:00 Reassessment: Patient appears in no apparent distress at this time. No changes from [facility] previously documented assessment. Patient and/or family updated on plan of care and expected duration. Pain level reassessed. Patient is alert, oriented x 3, equal unlabored respirations, skin warm/dry/pink. Vital Signs: 02/16 17:18 BP 117 / 84; Pulse 86; Resp 16; Temp 97; Pulse Ox 99% ; ko1 19:05 BP 114 / 68; Pulse 78; Resp 15; Pulse Ox 100% on R/A; me1 20:00 BP 118 / 71; Pulse 82; Resp 16; Pulse Ox 100% on R/A; me1 21:00 BP 115 / 80; Pulse 73; Resp 16; Pulse Ox 99% on R/A; me1 22:00 BP 116 / 58; Pulse 82; Resp 15; Pulse Ox 99% on R/A; me1 23:00 BP 118 / 61; Pulse 76; Resp 17; Pulse Ox 100% on R/A; ri1 07 00:00 BP 119 / 61; Pulse 75; Resp 16 S; Pulse Ox 100% on R/A; jw7 01:27 BP 113 / 56; Pulse 87; Resp 15 S; Pulse Ox 100% on R/A; jw7 Nancei Coma Score: 02/16 17:18 Eye Response: spontaneous(4). Motor Response: obeys commands(6). Verbal Response: ko1 oriented(5). Total: 15. Trauma Score (Adult): 17:18 Eye Response: spontaneous(1); Verbal Response: oriented(1); Motor Response: obeys ko1 commands(2); Systolic BP: > 89 mm Hg(4); Respiratory Rate: 10 to 29 per min(4); Buckland Score: 15; Trauma Score: 12 ED Course: 16:38 Patient arrived in ED. ko1 16:40 Jerzy Reid PA is PHCP. cp 16:40 Jerzy Smiley MD is Attending Physician. cp 16:41 Diana Hassan, RN is Primary Nurse. ko1 17:15 Basic Metabolic Panel Sent. ko1 17:15 CBC with Diff Sent. ko1 17:15 LFT's Sent. ko1 17:15 Magnesium Sent. ko1 17:15 NT PRO-BNP Sent. ko1 17:15 PT-INR Sent. ko1 17:16 Accessed Medi-Port. Blood collected. using accessed w/ # 20 [place] needle, ,sterile ko1 technique, per hospital protocol. Clean \T\ dry. Good blood return. Flushes easily. 17:16 Initial lab(s) drawn, by me, sent to lab. ko1 17:16 Patient has correct armband on for positive identification. Fall risk band placed. ko1 Placed in gown. Bed in low position. Call light in reach. Side rails up X2. Provided Education on: labs, call light. Client placed on continuous cardiac and pulse oximetry monitoring. NIBP monitoring applied. nurse monitoring on. Door closed. Noise minimized. Lights dimmed. Warm blanket given. Pillow given. Assisted to bathroom. 17:18 O2 via RA. Thermoregulation: warm blanket given to patient. ko1 17:20 XRAY Chest (1 view) In Process Unspecified. EDMS 17:20 Triage completed. ko1 17:23 CT Traumagram (Head C Spine CAP wo con) In Process Unspecified. EDMS 17:57 No provider procedures requiring assistance completed. ko1 17:57 Assisted to bathroom. ko1 17:58 EKG done, by ED staff, reviewed by Jeryz JORDAN. ko1 18:48 Warm blanket given. ko1 18:51 Primary Nurse role handed off by Diana Hassan, RN ko1 20:41 Saloni Alvarenga, RN is Primary Nurse. me1 22:29 Urinalysis W/Microscopic Sent. me1 22:29 Urine collected: clean catch specimen, cloudy, tea colored. me1 22:39 Arm band placed on Patient placed in an exam room. me1 23:16 Gonzalez Manriquez MD is Hospitalizing Provider. cp 02/17 00:00 Report received from ANNA Guallpa. jw7 01:23 Patient admitted, IV remains in place. jw7 Administered Medications: 02/16 20:55 Drug: NS 0.9% IV 500 ml IV at bolus once Route: IV; Rate: bolus; Site: Port-a-cath; me1 22:28 Follow up: Response: No adverse reaction; IV Status: Completed infusion; IV Intake: me1 500ml 02/17 00:27 Drug: Potassium PO Effervescent Tablet 25 mEq PO once; dissolve in 4 ounces of water or jw7 juice Route: PO; 01:03 Follow up: Response: No adverse reaction jw7 00:55 Drug: Rocephin IV 1 grams IV at calculated rate once; Given slow IV push per pharmacy jw7 instructions Route: IV; Rate: calculated rate; Site: Port-a-cath; 01:23 Follow up: Response: No adverse reaction; IV Status: Completed infusion; IV Intake: [id number] Medication: 02/16 17:16 VIS not applicable for this client. ko1 Intake: 22:28 IV: 500ml; Total: 500ml. me1 02/17 01:23 IV: 50ml; Total: 550ml. jw7 02/16 22:37 foul odor noted me1 Output: 22:37 Urine: 350ml (Voided); Total: 350ml. me1 22:37 foul odor noted me1 Outcome: 22:37 Patient's length of stay in the Emergency Department was greater than 2 hours. me1 23:17 Decision to Hospitalize by Provider. malick 02/17 01:23 Admitted to Tele accompanied by [facility], via wheelchair, room 408, jw7 Condition: stable Instructed on the need for admit, Demonstrated understanding of instructions, 01:44 Patient left the ED. jw7 Signatures: Dispatcher [employer] EDMS Jerzy Reid PA PA cp Waits, Jodi, RN RN jw7 Diana Hassan RN RN ko1 Saloni Alvarenga RN RN me1 Corrections: (The following items were deleted from the chart) 02/16 22:29 17:18 Chief complaint: EMS states: patient lives in halfway community, fell last me1 night and again this morning. She is on eliquis, did not loose consciousness. She states her legs are abnormally shaky. she normally drives and gets around independently ko1
--- NOTE | 2024-02-17 23:59 | P.HP ---
Certification for Inpatient Patient admitted to: Inpatient With expected LOS: >2 Midnights Patient will require the following post-hospital care: None Practitioner: I am a practitioner with admitting privileges, knowledge of patient current condition, hospital course, and medical plan of care. Services: Services provided to patient in accordance with Admission requirements found in Title 42 Section 412.3 of the Code of Federal Regulations Patient History Date of Service: 02/18/24 Reason for admission: Fall with weakness History of Present Illness: 88-year-old female with past medical history of hypertension, paroxysmal A-fib, diastolic CHF with last echo from 3 years ago showing EF of 40 to 45%, CAD, carotid artery stenosis, follows with [facility] cardiology, D who restarted after independent facility presented because of recurrent falls. Patient said she fell yesterday was able to get up. She again fell again earlier this morning and had difficulty getting up. She presented to the ED because of increasing weakness. She denies any nausea vomiting or fever. She denies any dysuria or diarrhea. On arrival in the ED vital signs were stable, afebrile, EKG shows no ST segment changes. CT of the chest abdomen and pelvics as well as head CT shows no acute intracranial pathology, no acute abdominal or thoracic abnormality except for chronic thoracic compression fractures L1 vertebral compression fracture. Urinalysis currently pending but urine obtained with straight cath was foul- smelling. Chest x-ray shows no acute infiltrate. Laboratory workup shows WBC of 11.6 with right shift, potassium of 3.4 creatinine of 1.89 with previous baseline creatinine of 1.2, troponin was negative. Patient has been admitted for presumed UTI with weakness and recurrent falls Allergies No Known Allergies Allergy (Verified 08/04/23 10:00) Home Medications: Aspirin 81 mg PO DAILY 02/26/18 Gabapentin [Gralise] 300 mg PO BEDTIME 02/26/18 dilTIAZem HCl [Diltiazem 24Hr ER (LA)] 240 mg PO DAILY 05/31/18 Apixaban [Eliquis] 5 mg PO BID 10/28/19 Chlorthalidone 1 tab PO BEDTIME 06/22/20 Losartan Potassium 1 tab PO BEDTIME 06/22/20 Cholecalciferol (Vitamin D3) [Vitamin D3] 1,000 unit PO DAILY 07/21/22 Loratadine [Claritin*] 10 mg PO BEDTIME 07/21/22 Multivit-Min/Iron/Folic/Lutein [Centrum Silver Women Tablet] 1 each PO BEDTIME 07/21/22 Prolia SQ SEECOM 07/21/22 Simvastatin 40 mg PO BEDTIME 07/21/22 Codeine/APAP [Tylenol W/Codeine #3 tab] 1 tab PO Q6HP PRN #12 tab 08/05/22 - Past Medical/Surgical History -: Hypertension -: CAD -: Diastolic CHF with reduced EF -: Peripheral vascular disease -: Former smoker -: Breast cancer -: HLD -: Mastectomy - Family History Family History: Reviewed- Non-Contributory - Social History Smoking Status: Former smoker Counseled patient to stop smoking for: less than 10 minutes Smoking therapy provided: No Patient receptive to therapy: No Alcohol use: No CD- Drugs: No Caffeine use: No Place of Residence: Home Review of Systems General: Weakness Physical Examination - Physical Exam General: Alert, In no apparent distress, Oriented x3 HEENT: Atraumatic, Normocephalic, PERRLA Neck: 2+ carotid pulse no bruit, JVD not distended Respiratory: Clear to auscultation bilaterally, Normal air movement Cardiovascular: No edema, Regular rate/rhythm, Normal S1 S2 Gastrointestinal: Normal bowel sounds, Soft and benign, Non-distended, No asci yon, No tenderness Musculoskeletal: No clubbing, No swelling, No tenderness Neurological: Normal speech, Sensation intact, Cranial nerves 3-12 intact, Abnormal strength - Studies Laboratory Data (last 24 hrs) 02/17/24 02/17/24 02/17/24 17:10 17:10 17:10 WBC 11.60 H Hgb 13.0 Hct 38.3 Plt Count 245 PT 14.3 H INR 1.31 Sodium 138 Potassium 3.4 L BUN 49 H Creatinine 1.87 H Glucose 139 H Magnesium 2.1 Total Bilirubin 0.9 AST 20 ALT 19 Alkaline Phosphatase 79 Assessment and Plan - Problems (Diagnosis) (1) Recurrent falls Current Visit: Yes Status: Acute (2) UTI (urinary tract infection) Current Visit: Yes Status: Acute (3) Acute renal failure Current Visit: Yes Status: Acute - Plan Impression Recurrent falls with weakness Presumed UTI Acute kidney failure Hypertension HLD History of CAD with Plan Admit to observation Follow urine analysis with culture Start empirical cefepime Blood culture x 2 Follow WBC trend Start gentle IV fluid with lactated Ringer's despite slightly reduced EF of 40% on last echo Avoid fluid overload Follow creatinine trend Obtain PT and OT for muscle weakness Follow-up with antibiotics use IV hydralazine as needed for BP control Subcutaneous Lovenox for DVT prophylaxis Obtain home meds and resume Total time spent in evaluation greater than 65 minutes - Advance Directives Does patient have a Living Will: No Does patient have a Durable POA for Healthcare: Yes Time Spent Managing Pts Care (In Minutes): 65
[2024-02-18] MEDS ORDERED: ONDANSETRON 4 MG/2 ML VIAL IV PRN (00:03)
[2024-02-18] MEDS ORDERED: MORPHINE 2 MG/ML SYR IV PRN (00:03)
[2024-02-18] MEDS ORDERED: HYDRALAZINE HCL 20 MG/ML VIAL IV PRN (00:09)
[2024-02-18] MEDS ORDERED: Oxycodone HCl/Acetaminophen 5/325 MG TAB PO PRN (00:09)
[2024-02-18] MEDS ORDERED: POTASSIUM 25 MEQ EFFERV TAB ONE (00:17)
[2024-02-18 00:21] LABS: Specific Gravity 1.013 (1.005-1.030); Urine Bacteria 20-50 /HPF (<20); Urine Bilirubin NEGATIVE (Negative); Urine Blood Trace (Negative); Urine Clarity Extremely Turbid (Clear); Urine Color Yellow (Yellow); Urine Crystals Unidentified Few /HPF (None Seen); Urine Culture Reflex Order REFLEXED; Urine Glucose NEGATIVE (Negative); Urine Ketones NEGATIVE (Negative); Urine Micro Reflex YN NO BILL MICROSCOPIC; Urine Nitrite 2+ (Negative); Urine Protein TRACE (Negative); Urine RBC None Seen /HPF (None Seen); Urine Urobilinogen Normal (Normal); Urine WBC >50 /HPF (<5); Urine WBC Clump Many /HPF (None Seen); Urine pH 5.5 (5.0-7.0)
[2024-02-18] MEDS ORDERED: CEFTRIAXONE 1000 MG/VIAL ONE (00:53)
[2024-02-18] MEDS ORDERED: NA CHLORIDE 0.9% 50 ML ONE (00:53)
[2024-02-18] MEDS: Ringers Lactate 1,000 ML IV SCH (02:16)
[2024-02-18 03:12] VITALS: BMI 25.3
[2024-02-18 07:53] LABS: Magnesium 1.8 mg/dL (1.6-2.4)
[2024-02-18] MEDS: CEFEPIME 1 GM in NA CHLORIDE 0.9% 100 ML IV SCH (09:00)
[2024-02-18] MEDS ORDERED: CEFEPIME 1 GM in NA CHLORIDE 0.9% 100 ML IV SCH (09:00)
[2024-02-18] MEDS: ASPIRIN EC 81 MG TAB PO SCH (09:00)
--- NOTE | 2024-02-18 11:02 | P.PN ---
Subjective Date of Service: 02/18/24 Chief Complaint: Fall with weakness Pt is resting comfortably in bed. She was sleeping when I saw her. She is getting iv cefepime. No complaints. Review of Systems General: Weakness Eyes: Unremarkable ENT: Unremarkable Respiratory: Unremarkable Cardiovascular: Unremarkable Gastrointestinal: Unremarkable Genitourinary: Unremarkable Musculoskeletal: Unremarkable Integumentary: Unremarkable Neurological: Unremarkable Lymphatics: Unremarkable Physical Examination - Vital Signs Temperature: 97.2 F Blood Pressure: 122/58 Pulse: 75 Respirations: 19 Pulse Ox (%): 96 - Physical Exam General: Alert, In no apparent distress, Oriented x2 HEENT: Atraumatic, Normocephalic, PERRLA Neck: Supple, 2+ carotid pulse no bruit, JVD not distended Respiratory: Clear to auscultation bilaterally, Normal air movement Cardiovascular: No edema, Normal pulses, Regular rate/rhythm, Normal S1 S2 Capillary refill: <2 Seconds Gastrointestinal: Normal bowel sounds, Soft and benign, Non-distended Musculoskeletal: No clubbing, No swelling, No contractures Integumentary: No rashes, No breakdown, No significant lesion Neurological: Normal speech, Normal strength at 5/5 x4 extr, Normal tone Lymphatics: No axilla or inguinal lymphadenopathy - Studies Laboratory Data (last 24 hrs) 02/17/24 02/17/24 02/17/24 17:10 17:10 17:10 WBC 11.60 H Hgb 13.0 Hct 38.3 Plt Count 245 PT 14.3 H INR 1.31 Sodium 138 Potassium 3.4 L BUN 49 H Creatinine 1.87 H Glucose 139 H Magnesium 2.1 Total Bilirubin 0.9 AST 20 ALT 19 Alkaline Phosphatase 79 Assessment And Plan - Plan Recurrent falls with weakness: Will continue fall precaution. Will consult PT. CT spine shows L1 compression deformity is present, with sclerosis along the superior margin, likely chronic. T11 vertebroplasty cement. continue prn pain med. UTI: Will contnue iv cefepime and f/u urine cx. Acute kidney failure: Cr is 1.87. Will continue IVF, avoid nephrotoxins and monitor renal function. Hypertension: Continue home med HLD: Statin History of CAD with : Will continue home med DVT ppx: SCD Dispo: pending hospital course.
--- NOTE | 2024-02-18 13:33 | CON ---
Date of Consultation: 02/18/2024 Consulting Physician: Dr. Manriquez. Reason For Consultation: Elevated BUN-creatinine, fluid management. History Of Present Illness: This is an 88-year-old female with significant past medical history of hypertension, atrial fibrillation, congestive heart failure, diastolic dysfunction combined with systolic ejection fraction of 45, CAD, and carotid stenosis. The patient came to the hospital because of recurrent falls. The patient denied any nausea, any vomiting. The patient denied taking any nonsteroidal. The patient was found to have UTI. The patient found to have hypokalemia and elevated BUN and creatinine. For that reason, we have been consulted. The patient denied taking any nonsteroidal. Reviewing the record for the patient, baseline creatinine 1.2. Past Medical History: 1. CAD complicated with congestive heart failure, systolic and diastolic ejection fraction of 45%. 2. Peripheral vascular disease. 3. Hypertension. 4. Emphysema. 5. Chronic kidney disease, baseline creatinine 1.2. Past Surgical History: Include breast cancer and mastectomy. Family History: Positive for hypertension. Home Medications: Include aspirin, gabapentin, diltiazem, Eliquis, chlorthalidone, losartan, cholecalciferol, multivitamin, Prolia, codeine. Allergies: NO KNOWN DRUGS ALLERGY. Social History: Ex-smoker, denied alcohol, denied drugs abuse. Review of Systems: Head and Neck: No red eye. No ear pain. GI: No nausea, no vomiting. : No polyuria. Has dysuria. RFID ENGINEER: No vaginal discharge. Respiratory: No shortness of breath. Cardiovascular: No chest pain. Endocrine: No polydipsia. Skin: No rash. Neurologic: Has recurrent fall. Musculoskeletal: Low back pain. Physical Examination: Vital Signs: When I saw the patient, blood pressure 122/58, pulse of 75, afebrile. Chest: Clear to auscultation. Heart: S1-S2 regular. Abdomen: Soft, nontender. Extremities: No edema. Neurology: Alert, no focality. Laboratory Data: WBC 11.6, hemoglobin 13, platelet 245. Sodium 138, potassium 3.4, bicarb 26, BUN 49, creatinine 1.8, GFR 26, calcium 9.2. Reviewing the record for the patient back in November 2023, creatinine 1.2, GFR of 44. Assessment And Plan: Acute kidney injury on chronic kidney disease secondary to hypertension, nephrosclerosis. The acute kidney injury secondary to prerenal, superimposed with Lasix, chlorthalidone, and losartan. 1. I am going to hold above medication. 2. I am going to go ahead and get re-workup. The patient's obstructive uropathy has been ruled out with the CT. 3. Hypertension, controlled, optimal with the presence of acute kidney injury. Hold diuresis. Hold losartan. 4. Recurrent fall by primary. 5. Urinary tract infection: Complicated UTI has been ruled out. Continue current antibiotic dose appropriate. We will follow up culture. 6. Hypokalemia. The patient was started on LR, will supplement, and we will follow up. Thank you, Dr. Manriquez for allowing us to participate in the care of your patient. Time spent examining the patient [id number], reviewing data, lab and radiology, placing order, discussing the case with the patient, discussing the case with the steam shovel operator and nursing staff more than 75 minutes JONO Voice ID: [id number] Report ID: [id number] DULCE
[2024-02-18 18:29] LABS: UR PROTEIN 31.5 mg/dL (<11.9); Urine Protein/Creatinine Ratio 0.4 ratio (<0.15)
[2024-02-18] MEDS: GABAPENTIN 300 MG CAP PO SCH (20:38)
[2024-02-18] MEDS: ATORVASTATIN 40 MG TAB PO SCH (20:38)
[2024-02-18] MEDS: JUVEN PACKET PO SCH (20:38)
[2024-02-18] MEDS: APIXABAN 2.5 MG TABLET PO SCH (20:38)
[2024-02-18] MEDS: ENSURE ENLIVE 237 ML CAN PO SCH (20:38)
[2024-02-19 06:40] LABS: Absolute Basophils 0.1 K/uL (0-0.5); Absolute Eosinophils 0.2 K/uL (0-0.5); Absolute Lymphocytes (CBC) 0.7 K/uL (0.7-4.9); Absolute Monocytes 0.5 K/uL (0.1-1.3); Absolute Neutrophil 3.8 K/uL (1.8-8.0); Eosinophils % 3.1 % (0-4.4); Hematocrit 32.9 % (36.0-45.0); Hemoglobin 11.2 g/dL (12.0-15.0); Lymphocytes % 12.7 % (15.3-44.8); MCH 30.9 pg (27.0-35.0); MCHC 34.1 g/dL (32.0-36.0); MCV 90.6 fL (80-100); MPV 10.7 fL (7.6-11.3); Monocytes % 9.1 % (3.3-12.3); Neutrophils % 74.1 % (41.7-73.7); Nucleated Red Blood Cells % 0.3 % (0-0); Platelets 186 thou/uL (152-406); RBC Red Blood Cell Count 3.63 M/uL (3.86-4.86); Red Cell Distribution Width 16.7 % (12.1-15.2)
[2024-02-19 07:05] LABS: Albumin 2.6 g/dL (3.4-5.0); Albumin/Globulin Ratio 0.9 (1.1-1.8); Anion Gap 6.2 mEq/L (5.0-15.0); Bilirubin Total 0.6 mg/dL (0.2-1.0); Globulin 2.8 g/dL (2.3-3.5); Phosphorus 2.1 mg/dL (2.5-4.9); Potassium 3.2 mEq/L (3.5-5.1); Protein, Total 5.4 g/dL (6.4-8.2); Thyroid Stimulating Hormone 0.978 uIU/mL (0.358-3.740); Uric Acid 6.3 mg/dL (2.6-6.0)
[2024-02-19] MEDS: POTASSIUM CL SA 10 MEQ TAB PO SCH (08:27)
[2024-02-19] MEDS: DILTIAZEM HCL 120 MG SR CAP PO SCH (08:28)
[2024-02-19] MEDS: CITALOPRAM 10 MG TABLET PO SCH (08:28)
[2024-02-19] MEDS: ASPIRIN 81 MG CHEWABLE TABLET PO SCH (08:28)
--- NOTE | 2024-02-19 11:11 | P.PN ---
Subjective Date of Service: 02/19/24 Chief Complaint: Fall with weakness Pt is resting comfortably in bed. She was sleeping when I saw her. She is getting iv cefepime. No complaints overnight. Pt will go to inpatient rehab. Review of Systems General: Unremarkable Eyes: Unremarkable ENT: Unremarkable Respiratory: Unremarkable Cardiovascular: Unremarkable Gastrointestinal: Unremarkable Genitourinary: Unremarkable Musculoskeletal: Unremarkable Integumentary: Unremarkable Neurological: Unremarkable Lymphatics: Unremarkable Physical Examination - Vital Signs Temperature: 97.4 F Blood Pressure: 114/57 Pulse: 72 Respirations: 20 Pulse Ox (%): 96 - Physical Exam General: Alert, In no apparent distress, Oriented x3 HEENT: Atraumatic, Normocephalic, PERRLA Neck: Supple, 2+ carotid pulse no bruit, JVD not distended Respiratory: Clear to auscultation bilaterally, Normal air movement Cardiovascular: No edema, Normal pulses, Regular rate/rhythm, Normal S1 S2 Capillary refill: <2 Seconds Gastrointestinal: Normal bowel sounds, Hypoactive, Soft and benign, Non- distended Musculoskeletal: No clubbing, No swelling, No contractures Integumentary: No rashes, No breakdown, No significant lesion, No tenderness/swelling Neurological: Normal gait, Normal speech, Normal strength at 5/5 x4 extr Lymphatics: No axilla or inguinal lymphadenopathy Assessment And Plan - Plan Recurrent falls with weakness: Will continue fall precaution. Will consult PT. CT spine shows L1 compression deformity is present, with sclerosis along the superior margin, likely chronic. T11 vertebroplasty cement. continue prn pain med. UTI: Will contnue iv cefepime and f/u urine cx. Hypokalemia: K is 3.2. Will replete and monitor. Mag is 2.0 Acute kidney failure: Cr is 0.86<- 1.87. Will continue IVF, avoid nephrotoxins and monitor renal function. Hypertension: Continue home med HLD: Statin History of CAD with : Will continue home med DVT ppx: SCD Dispo: pending hospital course. Consulted community case manager for inpatient rehab placement.
--- NOTE | 2024-02-19 23:27 | PN ---
Date of Progress Note: 02/19/2024 Chief Complaint: Acute kidney injury. Subjective: The patient was found to have elevated BUN and creatinine level. She was started on IV fluids for acute kidney injury. 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 The patient came to the hospital because of recurrent falls. She denied nausea, vomiting , palpitation. The patient denied syncope. She was found to have urinary tract infection. Lab work showed hypokalemia. Elevated BUN and creatinine levels. Previously, baseline creatinine level was 1.2. The patient was started on IV fluids, and renal function has improved. Review of Systems: Denies chest pain, palpitation. Has frequent falls. Denies dysuria or hematuria. Physical Examination: Lungs: Clear to auscultation bilaterally. Heart: S1, S2. Abdomen: Soft. Extremities: No edema. Laboratory Work: Showed calcium 9.2, GFR 26, creatinine 1.8, sodium 138, potassium 3.4, bicarbonate 26, BUN 49. Impression And Plan: 1.Acute kidney injury on chronic kidney disease. The patient has chronic kidney disease secondary t o hypertension and benign nephrosclerosis. The patient developed acute kidney injury secondary to pr erenal azotemia superimposed with Lasix and chlorthalidone as well as angiotensin receptor marleni. The patient was taking losartan for blood pressure control. The patient responded to IV fluids. Jorge al function has improved. 2.Urinary tract infection, was treated with antibiotics. The patient will continue antibiotics. Bl ood culture and urine culture are pending. 3.Hypokalemia. The patient was started on IV fluids and received potassium supplementation. Monito r magnesium, potassium, and renal panel. Acute kidney injury is improving. Avoid nephrotoxic medica tion. The patient will follow up with Nephrology outpatient. VINICIO/ANGELLAL Voice ID: [id number] Report ID: [id number]
[2024-02-20 05:41] LABS: Absolute Basophils 0.1 K/uL (0-0.5); Absolute Eosinophils 0.3 K/uL (0-0.5); Absolute Lymphocytes (CBC) 1.4 K/uL (0.7-4.9); Absolute Monocytes 0.6 K/uL (0.1-1.3); Absolute Neutrophil 4.3 K/uL (1.8-8.0); Basophils % 1.2 % (0-1.3); Hematocrit 33.3 % (36.0-45.0); Hemoglobin 11.7 g/dL (12.0-15.0); MCH 31.4 pg (27.0-35.0); MCV 89.8 fL (80-100); MPV 10.9 fL (7.6-11.3); Monocytes % 8.4 % (3.3-12.3); Neutrophils % 64.4 % (41.7-73.7); Nucleated Red Blood Cells % 0.1 % (0-0); Platelets 220 thou/uL (152-406); RBC Red Blood Cell Count 3.71 M/uL (3.86-4.86); Red Cell Distribution Width 16.2 % (12.1-15.2)
[2024-02-20 06:04] LABS: Albumin 2.8 g/dL (3.4-5.0); Anion Gap 6.5 mEq/L (5.0-15.0); Potassium 4.5 mEq/L (3.5-5.1)
[2024-02-20] MEDS: POTASS/SODIUM PHOSPHATE 1 PKT POWD.PACK PO ONE (06:43)
--- NOTE | 2024-02-20 11:57 | PN ---
Date of Progress Note: 02/20/2024 Subjective: The patient was admitted with acute kidney injury secondary to prerenal, secondary to overdiuresis, losartan. Recovered. Normalized. The patient has normal volume. Physical Examination: Vital Signs: Blood pressure 100/49, pulse of 59, afebrile. Chest: Clear to auscultation. Heart: S1, S2. Regular. Abdomen: Soft, nontender. Extremities: No edema. Neurologic: Alert. No focality. Laboratory Data: Hemoglobin 11.6. Sodium 140, potassium 4.5, bicarb 29, BUN 31, creatinine 0.8, calcium 8.8. Phosphorus 2. Current Medications: The patient is on include aspirin, cefepime, atorvastatin, diltiazem, Ensure, gabapentin 300. LR. Morphine. Assessment And Plan: 1. Acute kidney injury secondary to prerenal, overdiuresis superimposed with ARB recovered, resolved. 2. Congestive heart failure, currently normal volume. Discontinue IV fluid. I am going to go ahead and repeat chest x-ray for better evaluation of her fluid status. Keep holding the diuresis for the time being. 3. Hypertension, currently blood pressure on the lower side. Keep holding diuresis. Keep holding losartan. We will follow up. 4. Urinary tract infection secondary to Escherichia coli. Continue current antibiotic. We will follow up with primary. Okay to switch to oral. 5. Atrial fibrillation as by primary. 6. Hypokalemia, status post supplement, recovered, resolved. Time spent examining the patient [id number], reviewing data, lab and radiology, placing order, discussing the case with the patient, discussing the case with the steam shovel operator and nursing staff more than 55 minutes JONO Voice ID: [id number] Report ID: [id number] DULCE
--- NOTE | 2024-02-20 13:00 | P.PN ---
Subjective Date of Service: 02/20/24 Chief Complaint: Fall with weakness Pt is resting comfortably in bed. She was sleeping when I saw her. She is getting iv cefepime. She has pressure wound on her buttocks. No complaints overnight. Pt will go to inpatient rehab. Review of Systems General: Unremarkable Eyes: Unremarkable ENT: Unremarkable Respiratory: Unremarkable Cardiovascular: Unremarkable Gastrointestinal: Unremarkable Genitourinary: Unremarkable Musculoskeletal: Unremarkable Integumentary: Unremarkable Neurological: Unremarkable Lymphatics: Unremarkable Physical Examination - Vital Signs Temperature: 96.9 F Blood Pressure: 100/49 Pulse: 59 Respirations: 18 Pulse Ox (%): 93 - Physical Exam General: Alert, In no apparent distress, Oriented x3 HEENT: Atraumatic, Normocephalic, PERRLA Neck: Supple, 2+ carotid pulse no bruit, JVD not distended Respiratory: Clear to auscultation bilaterally, Normal air movement Cardiovascular: No edema, Normal pulses, Regular rate/rhythm, Normal S1 S2 Capillary refill: <2 Seconds Gastrointestinal: Normal bowel sounds, Soft and benign, Non-distended Musculoskeletal: No clubbing, No swelling, No contractures Integumentary: No rashes, No breakdown, No significant lesion Neurological: Normal gait, Normal speech, Normal strength at 5/5 x4 extr Lymphatics: No axilla or inguinal lymphadenopathy Assessment And Plan - Plan Recurrent falls with weakness: Will continue fall precaution. Will consult PT. CT spine shows L1 compression deformity is present, with sclerosis along the superior margin, likely chronic. T11 vertebroplasty cement. continue prn pain med. UTI: Will contnue iv cefepime and f/u urine cx. Hypokalemia: K is 4.5<- 3.2. Will monitor. Mag is 2.0 Acute kidney failure: Cr is 0.85 <- 0.86<- 1.87. Will continue IVF, avoid nephrotoxins and monitor renal function. Hypertension: Continue home med HLD: Statin Pressure ulcer on buttocks, stage 2: Will continue wet to dry dressing. Consulted wound care. History of CAD with : Will continue home med DVT ppx: SCD Dispo: pending hospital course. Consulted transplant case manager for inpatient rehab placement.
--- NOTE | 2024-02-20 13:56 | P.CNS ---
Date of Consult: 02/20/24 Chief Complaint: Fall with weakness History of Present Illness: Patient with PMH of WILLIAM presented with weakness, seizure like activity, found to have UTI, patient denies chest pain, no SOB, no palpitations, no syncope. Allergies No Known Allergies Allergy (Verified 08/04/23 10:00) Home Medications: Aspirin 81 mg PO DAILY 02/26/18 Gabapentin [Gralise] 300 mg PO BEDTIME 02/26/18 dilTIAZem HCl [Diltiazem 24Hr ER (LA)] 240 mg PO DAILY 05/31/18 Apixaban [Eliquis] 2.5 mg PO BID 10/28/19 Chlorthalidone 1 tab PO BEDTIME 06/22/20 Losartan Potassium 1 tab PO BEDTIME 06/22/20 Simvastatin 40 mg PO BEDTIME 07/21/22 Citalopram [Celexa] 10 mg PO DAILY 02/18/24 Furosemide 20 mg PO DAILY 02/18/24 Solifenacin [Vesicare] 5 mg PO DAILY 02/18/24 - Past Medical/Surgical History Diabetic: No -: Hypertension -: CAD -: Diastolic CHF with reduced EF -: Peripheral vascular disease -: Former smoker -: Breast cancer -: HLD -: Mastectomy - Social History Alcohol use: No CD- Drugs: No Caffeine use: No Place of Residence: Home Review of Systems 10-point ROS is otherwise unremarkable Physical Examination Temp Pulse Resp BP Pulse Ox 96.9 F 59 18 100/49 L 93 02/20/24 13:00 02/20/24 13:00 02/20/24 13:00 02/20/24 13:00 02/20/24 13:00 General: Alert, In no apparent distress HEENT: Atraumatic, PERRLA, Mucous membr. moist/pink, EOMI, Sclerae nonicteric Neck: Supple, 2+ carotid pulse no bruit, No LAD, Without JVD or thyroid abnormality Respiratory: Clear to auscultation bilaterally, Normal air movement Cardiovascular: Regular rate/rhythm, Normal S1 S2 Gastrointestinal: Normal bowel sounds, No tenderness Musculoskeletal: No tenderness Integumentary: No rashes Neurological: Normal gait, Normal speech, Normal tone, Normal affect Lymphatics: No axilla or inguinal lymphadenopathy - Problems (1) Weakness with dizziness Current Visit: Yes Status: Acute Plan: Patient rhythm was reviewed on telemtery, she is in sinus rhythm with BBB, pauses are not long enough to qualify for pacemaker placement. will need outpatient event monitor (2) History of transcatheter aortic valve implantation (WILLIAM) Current Visit: Yes Status: Acute Plan: continue current medications (3) Atrial fibrillation Current Visit: Yes Status: Acute Plan: continue Eliquis 2.5 mg po BID continue Diltazem 240 mg daily
--- NOTE | 2024-02-20 14:31 | RAD REPORT ---
EXAM DESCRIPTION: RAD - Chest Single View - 02/20/2024 1:55 pm CLINICAL HISTORY: COPD Chest pain. COMPARISON: <Comparisons> FINDINGS: Portable technique limits examination quality. The lungs are grossly clear. The heart is normal in size. Right port catheter its tip in the SVC. Mod erate hiatal hernia.Postsurgical changes both axilla. IMPRESSION: No acute intrathoracic process suspected.
[2024-02-20] MEDS: MELATONIN 5 MG TABLET PO PRN (21:07)
[2024-02-21 06:51] LABS: Absolute Basophils 0.1 K/uL (0-0.5); Absolute Eosinophils 0.3 K/uL (0-0.5); Absolute Lymphocytes (CBC) 0.9 K/uL (0.7-4.9); Absolute Monocytes 0.5 K/uL (0.1-1.3); Eosinophils % 5.4 % (0-4.4); Hemoglobin 11.2 g/dL (12.0-15.0); Lymphocytes % 15.4 % (15.3-44.8); MCH 31.5 pg (27.0-35.0); MCHC 35.1 g/dL (32.0-36.0); MCV 89.6 fL (80-100); MPV 10.2 fL (7.6-11.3); Monocytes % 8.6 % (3.3-12.3); Neutrophils % 69.6 % (41.7-73.7); Nucleated Red Blood Cells % 0.1 % (0-0); Platelets 218 thou/uL (152-406); RBC Red Blood Cell Count 3.57 M/uL (3.86-4.86); Red Cell Distribution Width 16.5 % (12.1-15.2)
[2024-02-21 07:15] LABS: Albumin 2.6 g/dL (3.4-5.0); Anion Gap 7.4 mEq/L (5.0-15.0); Phosphorus 3.6 mg/dL (2.5-4.9); Potassium 4.4 mEq/L (3.5-5.1)
--- NOTE | 2024-02-21 08:15 | P.PN ---
Subjective Date of Service: 02/21/24 Chief Complaint: Fall with weakness Pt is resting comfortably in bed. She was eating breakfast when I saw her. She is getting iv cefepime. She has pressure wound on her buttocks. No complaints overnight. Pt will go to inpatient rehab. Review of Systems General: Unremarkable Eyes: Unremarkable ENT: Unremarkable Respiratory: Unremarkable Cardiovascular: Unremarkable Gastrointestinal: Unremarkable Genitourinary: Unremarkable Musculoskeletal: Unremarkable Integumentary: Lesions Neurological: Unremarkable Lymphatics: Unremarkable Physical Examination - Vital Signs Temperature: 96.9 F Blood Pressure: 111/54 Pulse: 69 Respirations: 16 Pulse Ox (%): 94 - Physical Exam General: Alert, In no apparent distress, Oriented x3 HEENT: Atraumatic, Normocephalic, PERRLA Neck: Supple, 2+ carotid pulse no bruit Respiratory: Clear to auscultation bilaterally, Normal air movement Cardiovascular: No edema, Normal pulses, Regular rate/rhythm, Normal S1 S2 Capillary refill: <2 Seconds Gastrointestinal: Normal bowel sounds, Soft and benign, Non-distended Musculoskeletal: No clubbing, No swelling, No contractures Integumentary: No rashes, No breakdown, No significant lesion Neurological: Normal gait, Normal speech, Normal strength at 5/5 x4 extr, Normal tone, Sensation intact Lymphatics: No axilla or inguinal lymphadenopathy - Studies Microbiology Data (last 24 hrs): 02/17/24 22:25 Clean Catch Urine Fithian Count - Final >100,000 CFU/ML. 02/17/24 22:25 Clean Catch Urine - Final Escherichia Coli Enterococcus Faecalis Assessment And Plan - Plan Recurrent falls with weakness: Will continue fall precaution. Will consult PT. CT spine shows L1 compression deformity is present, with sclerosis along the superior margin, likely chronic. T11 vertebroplasty cement. continue prn pain med. UTI: Will continue iv levaquin. Off cefepime. Urine cx is growing E. coli and A. faecalis Hypokalemia: K is 4.4<- 4.5<- 3.2. Will monitor. Mag is 2.0 Acute kidney failure: Cr is 0.65<- 0.85 <- 0.86<- 1.87. Will continue IVF, avoid nephrotoxins and monitor renal function. Hypertension: Continue home med HLD: Statin Cardiac pause: EKG shows sinus rhythm with RBBB. The pauses are not long enough for pacemaker placement. Continue telemetry. A. fib: Continue telemetry. diltiazem and Eliquis. Pressure ulcer on buttocks, stage 2: Will continue wet to dry dressing. Consulted wound care. History of CAD with : Will continue home med DVT ppx: SCD Dispo: pending hospital course. Consulted rehabilitation case coordinator for inpatient rehab placement.
[2024-02-21] MEDS: Levofloxacin 750mg IV 750 MG/150 ML BAG IV SCH (09:12)
--- NOTE | 2024-02-21 10:35 | EKG ---
Test Date: 2024-02-17 Test Time: 17:51:22 Contact Acid Plant Operator: FELECIA MEASUREMENT RESULTS: Intervals: Rate: 77 [place]: 186 QRSD: 146 QT: 448 QTc: 506 [place]: P: 53 CA: 186 QRS: -44 T: 71 INTERPRETIVE STATEMENTS: Normal sinus rhythm Left axis deviation Left bundle branch block Abnormal ECG Compared to ECG 08/04/2023 11:28:39 Left-axis deviation now present Electronically Signed On 02-21-24 10:32:28 CDT by Kendrick Shepard
--- NOTE | 2024-02-21 15:05 | PN ---
Date of Progress Note: 02/21/2024 Subjective: The patient was admitted to the hospital with acute kidney injury on chronic kidney disease. The patient's baseline creatinine is around 1.4. Her acute kidney injury was secondary to Lasix and losartan. Physical Examination: Vital Signs: Blood pressure 111/54, pulse of 69, afebrile. Chest: Clear to auscultation. Heart: S1, S2. Regular. Abdomen: Soft, nontender. Extremities: Trace edema. Neuro: Alert. No focality. Laboratory Data: Hemoglobin 11.2. Sodium 140, potassium 4.4, bicarb 29, BUN 26, creatinine down to 0.6, normalized. GFR 117. Calcium 9.2. Phosphorus 3.6. Albumin 2.6. Corrected calcium is 10.2. Current Medications: The patient is on include levofloxacin, aspirin, Eliquis, citalopram, diltiazem, atorvastatin, Ensure, Zofran. Assessment And Plan: 1. Acute kidney injury secondary to overdiuresis, Lasix and losartan, on the recovery, looked to me more normal volume. I am going to continue to monitor the patient off diuresis. 2. Hypertension, controlled. Currently, blood pressure is on the lower side. I am going to go ahead and decrease diltiazem to 180 mg and we will follow up the patient. 3. Hypokalemia, status post supplement, resolved. 4. Urinary tract infection. Continue current antibiotic. Time spent examining the patient [id number], reviewing data, lab and radiology, placing order, discussing the case with the patient, discussing the case with the lift team technician and nursing staff more than 55 minutes JONO Voice ID: [id number] Report ID: [id number] MTDD
[2024-02-22 05:41] LABS: Albumin 2.7 g/dL (3.4-5.0); Phosphorus 3.9 mg/dL (2.5-4.9)
[2024-02-22 05:53] LABS: Hematocrit 34.7 % (36.0-45.0); Hemoglobin 11.1 g/dL (12.0-15.0); MCH 29.3 pg (27.0-35.0); MCV 91.5 fL (80-100); RBC Red Blood Cell Count 3.79 M/uL (3.86-4.86)
[2024-02-22 05:54] LABS: Absolute Basophils 0.1 K/uL (0-0.5); Absolute Eosinophils 0.2 K/uL (0-0.5); Absolute Lymphocytes (CBC) 0.8 K/uL (0.7-4.9); Absolute Monocytes 0.6 K/uL (0.1-1.3); Absolute Neutrophil 4.5 K/uL (1.8-8.0); Basophils % 1.2 % (0-1.3); Eosinophils % 3.8 % (0-4.4); Lymphocytes % 13.4 % (15.3-44.8); MCHC 32.1 g/dL (32.0-36.0); MPV 11.4 fL (7.6-11.3); Neutrophils % 72.6 % (41.7-73.7); Nucleated Red Blood Cells % 0.1 % (0-0); Platelets 222 thou/uL (152-406); Red Cell Distribution Width 16.5 % (12.1-15.2)
[2024-02-22] MEDS: DILTIAZEM HCL 180 MG SR CAP PO SCH (08:21)
--- NOTE | 2024-02-22 08:24 | P.PN ---
Date of Service: 02/22/24 Subjective Admitted for falls, generalized weakness, pending inpatient rehab, fall precaution Pressure ulcer, pressure offload Review of Systems Per HPI Physical Examination - Vital Signs - Physical Exam General: Alert, In no apparent distress, Oriented x3 HEENT: Atraumatic, Normocephalic, PERRLA Neck: Supple, 2+ carotid pulse no bruit, JVD not distended Respiratory: Clear to auscultation bilaterally, Normal air movement Cardiovascular: No edema, Normal pulses, Regular rate/rhythm, Normal S1 S2 Capillary refill: <2 Seconds Gastrointestinal: Normal bowel sounds, Soft and benign, Non-distended Musculoskeletal: No clubbing, No swelling, generalized weakness Integumentary: No rashes, No breakdown, No significant lesion Neurological: Normal gait, Normal speech, Normal strength at 5/5 x4 extr Lymphatics: No axilla or inguinal lymphadenopathy Assessment And Plan - Plan Recurrent falls with weakness: fall precaution. As needed analgesia PT consult. CT spine shows L1 compression deformity is present, with sclerosis along the superior margin, likely chronic. T11 vertebroplasty cement. continue prn pain med. Pending inpatient rehab disposition Acute cystitis with hematuria Will contnue iv cefepime and f/u urine cx. Levaquin, cefepime Pressure ulcer on buttocks, stage 2: Will continue wet to dry dressing. Consulted wound care. Pressure offload Protein calorie malnutrition Supplement BMI 25 Hypokalemia: K is 4.5<- 3.2. Will monitor. Mag is 2.0 Acute kidney failure: Cr is 0.85 <- 0.86<- 1.87. Will continue IVF, avoid nephrotoxins and monitor renal function. Hypertension: Hyperlipidemia History of CAD with : Continue home med DVT ppx: SCD Dispo: pending hospital course. Consulted embedded case manager for inpatient rehab placement. <Karla Pope - Last Filed: 02/24/24 09:37> Patient chart was reviewed and patient was seen and examined. DORA history and physical reviewed as well. Agree with the assessment and plan. Patient presented with acute cystitis with a stage II pressure ulcer. Working on inpatient rehab placement at this time. Most of the MDM was done by myself and plan of care was discussed with DORA as well as the patient. Plan to discharge to inpatient rehab once approval is completed. <Elana Loera - Last Filed: 02/28/24 21:46>
[2024-02-23 05:44] LABS: Anion Gap 7.3 mEq/L (5.0-15.0); Phosphorus 4.5 mg/dL (2.5-4.9); Potassium 4.3 mEq/L (3.5-5.1)
--- NOTE | 2024-02-23 09:05 | P.PN ---
Date of Service: 02/23/24 Subjective Admitted frequent falls,, generalized weakness, fall precaution Being followed by physical therapy, Review of Systems Per HPI Physical Examination - Vital Signs - Physical Exam General: Alert oriented x 3, HEENT: Atraumatic, Normocephalic, PERRLA Neck: Supple, 2+ carotid pulse no bruit, JVD not distended Respiratory: Clear to auscultation bilaterally, unlabored Cardiovascular: No edema, Normal pulses, Regular rate/rhythm, Normal S1 S2 Capillary refill: <2 Seconds Gastrointestinal: Normal bowel sounds, Soft and benign, Non-distended Musculoskeletal: No clubbing, No swelling, generalized weakness Integumentary: No rashes, No breakdown, No significant lesion Neurological: Normal gait, Normal speech, Normal strength at 5/5 x4 extr Assessment And Plan - Plan Recurrent falls with weakness: fall precaution. As needed analgesia Physical therapy following CT spine shows L1 compression deformity is present, with sclerosis along the superior margin, likely chronic. T11 vertebroplasty cement. continue prn pain med. Pending inpatient rehab disposition Acute cystitis with hematuria Will contnue iv cefepime and f/u urine cx. Levaquin, cefepime UA positive for E. coli Enterococcus faecalis Pressure ulcer on buttocks, stage 2: Will continue wet to dry dressing. Consulted wound care. Pressure offload Protein calorie malnutrition Supplement BMI 25 Hypokalemia: K is 4.5<- 3.2. Will monitor. Mag is 2.0 Chronic kidney disease acute renal failure unknown baseline Microcytic anemia likely secondary to anemia of chronic disease, stable Cr is 0.85 <- 0.86<- 1.87. Will continue IVF, avoid nephrotoxins and monitor renal function. Trend H&H Hypertension: Hyperlipidemia History of CAD with : Chronic anticoagulation on Eliquis Continue home med DVT ppx: SCD,, Eliquis Dispo: pending hospital course. Consulted case folder for inpatient rehab placement. <Karla Pope - Last Filed: 02/24/24 09:41> Patient chart was reviewed and patient was seen and examined. DORA history and physical reviewed as well. Agree with the assessment and plan. Patient presented with acute cystitis with a stage II pressure ulcer. Working on inpatient rehab placement at this time. Most of the MDM was done by myself and plan of care was discussed with DORA as well as the patient. Plan to discharge to inpatient rehab once approval is completed. <Elana Loera - Last Filed: 02/28/24 21:47>
--- NOTE | 2024-02-23 14:42 | PN ---
Date of Progress Note: 02/23/2024 Subjective: The patient was admitted to the hospital with acute kidney injury on chronic kidney disease, secondary to over diuresis and losartan. The patient feeling better. Kidney function has been improved, back to normalize. Physical Examination: Vital Signs: Blood pressure 172/63, pulse of 64, afebrile. Chest: Clear to auscultation. Heart: S1, S2. Regular. Abdomen: Soft, nontender. Extremities: No edema. Neuro: Alert. No focality. Laboratory Data: Sodium 135, potassium 4.3, bicarb 30, BUN 16, creatinine 0.8, GFR 65, calcium 9.8, hemoglobin 11.1. Current Medications: The patient on include: 1. Eliquis. 2. Cefepime. 3. Levofloxacin. 4. Diltiazem 180. 5. Atorvastatin. Assessment And Plan: 1. Acute kidney injury secondary to poor perfusion acute tubular necrosis, recovered back, normalized. We will continue to monitor off IV fluid. 2. Hypertension, not controlled. I am going to go ahead and increase her diltiazem. 3. Hypokalemia, status post supplement, resolved. 4. Hyponatremia, depletional. Sodium on the acceptable range. 5. Urinary tract infection, secondary to Escherichia coli and Enterococcus faecalis. Continue current antibiotic. We will follow up with primary. Time spent examining the patient [id number], reviewing data, lab and radiology, placing order, discussing the case with the patient, discussing the case with the food court team member and nursing staff more than 55 minutes JONO Voice ID: [id number] Report ID: [id number] DULCE
[2024-02-23] MEDS: CEFEPIME 1 GM in NA CHLORIDE 0.9% 100 ML IV SCH (20:33)
--- NOTE | 2024-02-24 09:40 | P.DS ---
Admission Date: 02/18/24 Discharge Date: 02/24/24 Reason for Admission: Fall with weakness Brief History of Present Illness: 88-year-old female with past medical history of hypertension, paroxysmal A-fib, diastolic CHF with last echo from 3 years ago showing EF of 40 to 45%, CAD, streeter tid artery stenosis, follows with [facility] cardiology, D who restarted after independent facility presented because of recurrent falls. Patient said she fell yesterday was able to get up. She again fell again earlier this morning and had difficulty getting up. She presented to the ED because of increasing weakness. She denies any nausea vomiting or fever. She denies any dysuria or diarrhea. On arrival in the ED vital signs were stable, afebrile, EKG shows no ST segment changes. CT of the chest abdomen and pelvics as well as head CT shows no acute intracranial pathology, no acute abdominal or thoracic abnormality except for chronic thoracic compression fractures L1 vertebral compression fracture. Urinalysis currently pending but urine obtained with straight cath was foul-smelling. Chest x-ray shows no acute infiltrate. Laboratory workup shows WBC of 11.6 with right shift, potassium of 3.4 creatinine of 1.89 with previous baseline creatinine of 1.2, troponin was negative. Patient has been admitted for presumed UTI with weakness and recurrent falls Physical Exam General: Alert, In no apparent distress, Oriented x3 HEENT: Atraumatic, Normocephalic, PERRLA Neck: 2+ carotid pulse no bruit, JVD not distended Respiratory: Clear to auscultation bilaterally, Normal air movement Cardiovascular: No edema, Regular rate/rhythm, Normal S1 S2 Gastrointestinal: Normal bowel sounds, Soft and benign, Non-distended, No ascites, No tenderness Musculoskeletal: No clubbing, No swelling, No tenderness Neurological: Normal speech, Sensation intact, Cranial nerves 3-12 intact, Abnormal strength Hospital Course: 88-year-old female with past medical history of hypertension, paroxysmal A-fib, diastolic CHF with last echo from 3 years ago showing EF of 40 to 45%, CAD, carotid artery stenosis, follows with [facility] cardiology, D who restarted after independent facility presented because of recurrent falls. Patient said she fell yesterday was able to get up. She again fell again earlier this morning and had difficulty getting up. She presented to the ED because of increasing weakness. Ms. Keller noted to have a acute cystitis, treated with IV antibiotics, protein calorie malnutrition, with supplementation, pressure ulcer being seen by wound care, pressure offloading, frequent falls she was evaluated by physical therapy patient is tolerating diet, plan to discharge to acute inpatient rehab for continued physical therapy, patient needs to follow-up with primary care physician after discharge Assessment Recurrent falls, weakness was evaluated and treated with physical therapy-fall precautions after L1 compression deformity, history of a T11 vertebroplasty with female, continue with as needed analgesics, fall precaution plan to discharge to acute inpatient rehab Acute cystitis with hematuria treated with IV antibiotics, Pressure ulcer stage II, evaluate with wound care, pressure offloading, Protein calorie malnutrition continue with protein calorie supplementation Hypokalemia replace electrolytes as needed while inpatient, improved Continue home medicines as previously prescribed GOAL: Clear understanding of disease process INSTRUCTIONS: Physician Discharge Instructions: Discharge to acute inpatient rehab -Follow-up with PCP in 1 to 2 weeks after discharge from rehab -Please call Dr. Loera at [phone] if any questions regarding hospital stay -Please call nursing station at [phone] if any nursing or medication questions -Return to the emergency room if symptoms worsen Diet: ADA, low sodium Activity: Fall precautions <Karla Pope - Last Filed: 02/25/24 13:26> Admission Date: 02/18/24 Discharge Date: 02/24/24 Hospital Course: Patient chart was reviewed and patient was seen and examined. DORA history and physical reviewed as well. Agree with the assessment and plan. Patient presented with acute cystitis with a stage II pressure ulcer. Patient is improved to inpatient rehab.. Most of the MDM was done by myself and plan of care was discussed with DORA as well as the patient. Plan to discharge to inpatient rehab today. <Elana Loera - Last Filed: 02/28/24 21:47> Disposition: TRANSFER TO INPATIENT REHAB Discharge Condition: FAIR Vital Signs/Physical Exam: Temp Pulse Resp BP Pulse Ox 97.4 F 62 16 145/63 H 98 02/24/24 08:00 02/24/24 08:00 02/24/24 08:00 02/24/24 08:00 02/24/24 08:00 Laboratory Data at Discharge: WBC 6.30 thou/uL (4.3-10.9) 02/22/24 04:35 Hgb 11.1 g/dL (12.0-15.0) L 02/22/24 04:35 Hct 34.7 % (36.0-45.0) L 02/22/24 04:35 Plt Count 222 thou/uL (152-406) 02/22/24 04:35 PT 14.3 SECONDS (9.4-12.5) H 02/17/24 17:10 INR 1.31 02/17/24 17:10 Sodium 135 mEq/L (136-145) L 02/23/24 04:40 Potassium 4.3 mEq/L (3.5-5.1) 02/23/24 04:40 BUN 16 mg/dL (7-18) 02/23/24 04:40 Creatinine 0.86 mg/dL (0.55-1.02) 02/23/24 04:40 Glucose 122 mg/dL (74-106) H 02/23/24 04:40 Uric Acid 6.3 mg/dL (2.6-6.0) H 02/19/24 06:04 Phosphorus 4.5 mg/dL (2.5-4.9) 02/23/24 04:40 Magnesium 1.8 mg/dL (1.6-2.4) 02/20/24 04:55 Total Bilirubin 0.6 mg/dL (0.2-1.0) 02/19/24 06:04 AST 22 U/L (15-37) 02/19/24 06:04 ALT 18 U/L (13-56) 02/19/24 06:04 Alkaline Phosphatase 62 U/L (45-117) 02/19/24 06:04 Triglycerides 67 mg/dL (<150) 02/19/24 06:04 Cholesterol 108 mg/dL (<200) 02/19/24 06:04 HDL Cholesterol 46 mg/dL (40-60) 02/19/24 06:04 Cholesterol/HDL Ratio 2.35 02/19/24 06:04 <Karla Pope - Last Filed: 02/25/24 13:26> Vital Signs/Physical Exam: Temp Pulse Resp BP Pulse Ox 97.1 F 75 75 H 123/60 98 02/24/24 12:00 02/24/24 12:22 02/24/24 12:00 02/24/24 12:22 02/24/24 12:00 Laboratory Data at Discharge: WBC 6.30 thou/uL (4.3-10.9) 02/22/24 04:35 Hgb 11.1 g/dL (12.0-15.0) L 02/22/24 04:35 Hct 34.7 % (36.0-45.0) L 02/22/24 04:35 Plt Count 222 thou/uL (152-406) 02/22/24 04:35 PT 14.3 SECONDS (9.4-12.5) H 02/17/24 17:10 INR 1.31 02/17/24 17:10 Sodium 135 mEq/L (136-145) L 02/23/24 04:40 Potassium 4.3 mEq/L (3.5-5.1) 02/23/24 04:40 BUN 16 mg/dL (7-18) 02/23/24 04:40 Creatinine 0.86 mg/dL (0.55-1.02) 02/23/24 04:40 Glucose 122 mg/dL (74-106) H 02/23/24 04:40 Uric Acid 6.3 mg/dL (2.6-6.0) H 02/19/24 06:04 Phosphorus 4.5 mg/dL (2.5-4.9) 02/23/24 04:40 Magnesium 1.8 mg/dL (1.6-2.4) 02/20/24 04:55 Total Bilirubin 0.6 mg/dL (0.2-1.0) 02/19/24 06:04 AST 22 U/L (15-37) 02/19/24 06:04 ALT 18 U/L (13-56) 02/19/24 06:04 Alkaline Phosphatase 62 U/L (45-117) 02/19/24 06:04 Triglycerides 67 mg/dL (<150) 02/19/24 06:04 Cholesterol 108 mg/dL (<200) 02/19/24 06:04 HDL Cholesterol 46 mg/dL (40-60) 02/19/24 06:04 Cholesterol/HDL Ratio 2.35 02/19/24 06:04 <Elana Loera - Last Filed: 02/28/24 21:47> Physician Review: Patient Assessed, Agree with Above Assessment and Plan Time spent managing pt's care (in minutes): 55 <Karla Pope - Last Filed: 02/25/24 13:26> <Elana Loera - Last Filed: 02/28/24 21:47> Home Medications: Aspirin 81 mg PO DAILY 02/26/18 Gabapentin [Gralise] 300 mg PO BEDTIME 02/26/18 dilTIAZem HCl [Diltiazem 24Hr ER (LA)] 240 mg PO DAILY 05/31/18 Apixaban [Eliquis] 2.5 mg PO BID 10/28/19 Chlorthalidone 1 tab PO BEDTIME 06/22/20 Losartan Potassium 1 tab PO BEDTIME 06/22/20 Simvastatin 40 mg PO BEDTIME 07/21/22 Citalopram [Celexa*] 10 mg PO DAILY 02/18/24 Furosemide 20 mg PO DAILY 02/18/24 Solifenacin [Vesicare*] 5 mg PO DAILY 02/18/24 Physician Discharge Instructions: -DC IV and DC home -Follow-up with PCP in 1 to 2 weeks -Follow-up with nephrology in 2 weeks -Please call Dr. Loera at [phone] if any questions regarding hospital stay -Please call nursing station at [phone] if any nursing or medication questions -Return to the emergency room if symptoms worsen Followup: NONE,NONE [UNKNOWN] -
--- NOTE | 2024-02-24 11:14 | PN ---
Date of Progress Note: 02/24/2024 Subjective: The patient was admitted to the hospital with acute kidney injury. Her acute kidney inj ury was secondary to poor perfusion, ATN, overdiuresis with losartan. The patient was back to normal kidney function. Physical Examination: Vital Signs: Blood pressure 145/63, pulse of 62, afebrile. Chest: Clear to auscultation. Heart: S1, S2. Systolic murmur. Abdomen: Soft, nontender. Extremities: No edema. Neurologic: Alert. No focality. Laboratory Data: Hemoglobin 11.3. Sodium 135, potassium 4.3, bicarb 30, BUN 16, creatinine 0.8. Current Medications: The patient is on include: 1.Cefepime. 2.Levaquin. 3.Eliquis. 4.Diltiazem 180. 5.Hydralazine. 6.Gabapentin. Assessment And Plan: 1.Acute kidney injury secondary to poor perfusion, acute tubular necrosis, superimposed with overdiu resis, recover, resolved. I am going to resume gentle dose of Lasix. 2.Hypertension, not controlled. We adjusted her diltiazem yesterday. I am going to go ahead and ad d gentle dose of diuresis. 3.Hypokalemia, hyponatremia. We will resume Lasix. 4.Urinary tract infection secondary to enterococcal faecalis and Escherichia coli. Continue current antibiotic. Follow up with Infectious Disease. JONO Voice ID: [id number] Report ID: [id number]
[2024-02-24] MEDS: FUROSEMIDE 20 MG TABLET PO SCH (12:22)
[2024-02-24 12:32] VITALS: O2SAT 98
[2024-02-24 12:33] VITALS: BP 123/60
[2024-02-24 14:25] VITALS: TEMP 97.1
[2024-02-25] MEDS ORDERED: MEDIHONEY 44 ML TOPICAL TUBE TOP SCH (09:00)
--- NOTE | 2024-02-29 16:49 | EKG ---
Test Date: 2024-02-19 Test Time: 23:11:56 Tie Layer: MONIKA MEASUREMENT RESULTS: Intervals: Rate: 65 VA: 168 QRSD: 134 QT: 452 QTc: 470 [place]: P: 65 VA: 168 QRS: 60 T: 52 INTERPRETIVE STATEMENTS: Sinus rhythm with marked sinus arrhythmia with junctional escape complexes Nonspecific intraventricular block Cannot rule out Anterior infarct, age undetermined Abnormal ECG Compared to ECG 02/17/2024 17:51:22 Junctional escape complex(es) now present Myocardial infarct finding now present Left-axis deviation no longer present Left bundle-branch block no longer present Electronically Signed On 02-29-24 16:38:12 CDT by Romeo Metz
--- NOTE | 2024-02-29 16:49 | EKG ---
Test Date: 2024-02-19 Test Time: 23:10:31 Traveler Changer: MONIKA MEASUREMENT RESULTS: Intervals: Rate: 60 [place]: 174 QRSD: 134 QT: 450 QTc: 450 [place]: P: 56 [place]: 174 QRS: 61 T: 52 INTERPRETIVE STATEMENTS: Sinus rhythm with marked sinus arrhythmia with junctional escape complexes Nonspecific intraventricular block Cannot rule out Anterior infarct, age undetermined Abnormal ECG Compared to ECG 02/17/2024 17:51:22 Junctional escape complex(es) now present Myocardial infarct finding now present Left-axis deviation no longer present Left bundle-branch block no longer present Electronically Signed On 02-29-24 16:38:14 CDT by Romeo Metz
== END 2024-02-24 15:02 | DRG 689 ==
LOC: ER 16:32 → ERHOLD 02-18 00:03 → 4TH 02-18 01:34 → ERHOLD 02-22 11:24 → 4TH 02-22 11:24 → 2ND 02-22 19:32 → ERHOLD 02-22 19:32 → UNDODISIN 02-24 15:02
PROVIDERS: ADMIT Internal Medicine; ATTEND Hospitalist
DX: N30.01 Acute cystitis with hematuria (principal); N17.0 Acute kidney failure with tubular necrosis; E46 Unspecified protein-calorie malnutrition; I50.42 Chronic combined systolic (congestive) and diastolic (congestive) heart failure; I13.0 Hypertensive heart and chronic kidney disease with heart failure and stage 1 through stage 4 chronic kidney disease, or unspecified chronic kidney disease; E87.1 Hypo-osmolality and hyponatremia; N18.9 Chronic kidney disease, unspecified; D63.1 Anemia in chronic kidney disease; D50.9 Iron deficiency anemia, unspecified; I48.0 Paroxysmal atrial fibrillation; I73.9 Peripheral vascular disease, unspecified; E87.6 Hypokalemia; J43.9 Emphysema, unspecified; E78.00 Pure hypercholesterolemia, unspecified; L89.322 Pressure ulcer of left buttock, stage 2; I25.10 Atherosclerotic heart disease of native coronary artery without angina pectoris; M48.56XD Collapsed vertebra, not elsewhere classified, lumbar region, subsequent encounter for fracture with routine healing; B95.2 Enterococcus as the cause of diseases classified elsewhere; B96.20 Unspecified Escherichia coli [E. coli] as the cause of diseases classified elsewhere; T50.1X5A Adverse effect of loop [high-ceiling] diuretics, initial encounter; T46.5X5A Adverse effect of other antihypertensive drugs, initial encounter; R29.6 Repeated falls; Z68.25 Body mass index [BMI] 25.0-25.9, adult; Z85.3 Personal history of malignant neoplasm of breast; Z91.81 History of falling; Z79.82 Long term (current) use of aspirin; Z79.01 Long term (current) use of anticoagulants; Z90.13 Acquired absence of bilateral breasts and nipples; Z79.899 Other long term (current) drug therapy; Z87.891 Personal history of nicotine dependence; W18.30XA Fall on same level, unspecified, initial encounter; Y93.9 Activity, unspecified; Y92.039 Unspecified place in apartment as the place of occurrence of the external cause; Y99.9 Unspecified external cause status
CPT/HCPCS: 36415; 70450; 71045; 71250; 72125; 80048; 80053; 80061; 80069; 80076; 81001; 82550; 82570; 83735; 83880; 83970; 84156; 84300; 84443; 84484; 84550; 85025; 85610; 87077; 87086; 87088; 87186; 93005; 94760; 96361; 96365; 97112; 97116; 97161; 97530; 99285; J0692; J0696; J7040; J7120

== ENCOUNTER 2024-07-18 11:54 | Inpatient (IN) | payer OTHER ==
[2024-07-18] MEDS ORDERED: ONDANSETRON 4 MG/2 ML VIAL ONE (12:35)
[2024-07-18] MEDS ORDERED: FAMOTIDINE 20 MG/2 ML VIAL IV ONE (12:35)
[2024-07-18] MEDS ORDERED: NA CHLORIDE 0.9% 500 ML ONE (12:36)
[2024-07-18 13:12] LABS: Absolute Basophils 0.1 K/uL (0-0.5); Absolute Lymphocytes (CBC) 0.4 K/uL (0.7-4.9); Absolute Monocytes 1.4 K/uL (0.1-1.3); Absolute Neutrophil 20.4 K/uL (1.8-8.0); Basophils % 0.3 % (0-1.3); Hemoglobin 13.5 g/dL (12.0-15.0); Lymphocytes % 1.9 % (15.3-44.8); MCH 29.9 pg (27.0-35.0); MCHC 33.7 g/dL (32.0-36.0); MCV 88.8 fL (80-100); MPV 10.8 fL (7.6-11.3); Monocytes % 6.3 % (3.3-12.3); Neutrophils % 91.5 % (41.7-73.7); Nucleated RBC Absolute Count 0.1 (0-0); Nucleated Red Blood Cells % 0.5 % (0-0); Platelets 259 thou/uL (152-406); Red Cell Distribution Width 14.1 % (12.1-15.2)
[2024-07-18 13:15] LABS: Specific Gravity 1.022 (1.005-1.030); Urine Bacteria None Seen /HPF (<20); Urine Bilirubin NEGATIVE (Negative); Urine Blood 1+ (Negative); Urine Clarity Extremely Turbid (Clear); Urine Color Light-Orange (Yellow); Urine Culture Reflex Order REFLEXED; Urine Glucose 2+ (Negative); Urine Ketones NEGATIVE (Negative); Urine Microscopic Reflex YN ORDER UMIC; Urine Nitrite NEGATIVE (Negative); Urine Protein 4+ (Over) (Negative); Urine RBC >50 /HPF (None Seen); Urine Urobilinogen Normal (Normal); Urine pH 8.5 (5.0-7.0)
[2024-07-18 13:39] LABS: AST/SGOT 19 U/L (15-37); Albumin 3.1 g/dL (3.4-5.0); Albumin/Globulin Ratio 0.9 (1.1-1.8); Alkaline Phosphatase 77 U/L (45-117); Anion Gap 12.4 mEq/L (5.0-15.0); BUN Blood Urea Nitrogen 24 mg/dL (7-18); Bicarbonate 28 mEq/L (21-32); Bilirubin Total 0.8 mg/dL (0.2-1.0); Globulin 3.6 g/dL (2.3-3.5); Glomerular Filtration Rate 38 ml/min (=/>90); Glucose Level 224 mg/dL (74-106); Lipase 9 U/L (13-75); Potassium 3.4 mEq/L (3.5-5.1); Protein, Total 6.7 g/dL (6.4-8.2); Sodium Level 140 mEq/L (136-145)
[2024-07-18 13:45] LABS: Blood Morphology Comment NOT SEEN (NOT SEEN); Differential Total Cells Count 100; Lymphocytes 2 % (15-42); Monocytes 7 % (0-10); Platelet Estimate ADEQ; Segmented Neutrophils 91 % (40-80)
[2024-07-18 13:47] LABS: ALT/SGPT < 14 U/L (13-56)
--- NOTE | 2024-07-18 14:35 | RAD REPORT ---
EXAMINATION: CT Abdomen Pelvis W Contrast CLINICAL INDICATION: Female, 89 years old. ABD PAIN TECHNIQUE: CT abdomen and pelvis was performed, after the administration of IV contrast, [facility]. Axial, sagittal and coronal reconstructions were obtained. One or more of the following dose reduction techniques were used: Automated exposure control, adjustment of the mA and k V according to patient size, and iterative reconstruction. Unless otherwise specified, incidental findings do not require dedicated imaging follow-up. COMPARISON: 05/27/2024 FINDINGS: LOWER CHEST: Large hiatal hernia containing most of the stomach. Moderate layering right pleural effu ilam. Patchy right middle and lower lobe airspace opacities, could reflect atelectasis or mild pneumonitis.. LIVER: Normal in size and contour. Mildly expansile right lower lobe marginal 4.7 cm cyst is not sign ificantly changed. No other suspicious focal lesion. BILIARY SYSTEM: No suspicious abnormalities. SPLEEN: Normal size. No focal lesion. PANCREAS: No mass, ductal dilation, or purvi-pancreatic fluid. ADRENALS: Normal; no mass. KIDNEYS: Normal size and contour. No hydronephrosis. Stable cortical cystic lesions. Stable lobular r enal contour, bilaterally, may relate to persistent lobulation. URINARY BLADDER: Marked diffuse wall thickening and urothelial hyperenhancement again seen, without a focal mass. Tubular structure extending from the exterior wall of the bladder towards the prevertebral space opposite L5-S1 is stable over multiple prior scans, could relate to a urinary trac t prostatic, please correlate with prior procedural history. GASTROINTESTINAL TRACT: Fluid distention of mid to distal small bowel, with segments of mucosal thick ening or erosions particularly along the left flank. Focal abrupt transition to distal small bowel in the left hemipelvis posteriorly, see series 201 image 61. Proximal to this, a long segment of smal l bowel with less prominent fluid distention, at the proximal end of which there is another focal abrupt transition to a short segment of nondistended small bowel, see series 202 images 46-49, and se frankie 201 image 61. No evidence of free air, significant intra-abdominal free fluid, or discrete fluid collections. Mild colonic diverticulosis. APPENDIX: Appendix not visualized, but no inflammatory changes in region of appendix. LYMPH NODES: No lymphadenopathy. MUSCULOSKELETAL: Superior endplate compression deformities at T10, T11, and L1, stable. No other acut e osseous abnormalities. ADDITIONAL FINDINGS: None. IMPRESSION: Findings of complete or high-grade small bowel obstruction with focal transition point in the left po sterior hemipelvis. Another focal transition point in the central pelvis may relate to another focal dilatation or peristalsis. Moderate right layering pleural effusion. Patchy right middle and lower lobe airspace opacities, may reflect atelectasis or mild pneumonitis.
--- NOTE | 2024-07-18 14:53 | EDPHYS ---
Physician Documentation [facility] Name: Veronique Keller Age: 89 yrs Sex: Female : 1935 Arrival Date: 07/18/2024 Time: 11:54 Bed 19 Private MD: ED Physician Ant Johnson HPI: 07/18 18:43 This 89 yrs old Female presents to ER via EMS with complaints of Vomiting. ms3 18:43 Veronique Keller is an 89-year-old female presenting to the Emergency Department via [address] [facility]. She has been experiencing vomiting since Thursday, today being Thursday, with no fever initially. Her ground systems engineer, her granddaughter, reported that she was coherent last night but today is minimally responsive, barely speaking, and not making sense. Ms Keller is not in pain but is experiencing nausea. Her ground systems engineer also notes she has early COPD, a heart murmur, and was recently noted to have a swollen abdomen, possibly due to a recent procedure (WATCHMAN placement on July 06). . Historical: - Allergies: 12:26 No Known Allergies; cm10 - PMHx: 12:26 BREAST CA; Hypercholesterolemia; Hypertensive disorder; cm10 - PSHx: 12:26 B mastectomy; cm10 - Immunization history:: Adult Immunizations up to date. - Infectious Disease History:: Denies. - Social history:: Smoking status: Patient/guardian denies using tobacco, the patient reports quitting approximately 15 years ago. ROS: 18:43 Constitutional: Negative for fever, and chills. Cardiovascular: Negative for chest ms3 pain, and palpitations. Respiratory: Negative for shortness of breath, cough, wheezing, and pleuritic chest pain, 18:43 MS/Extremity: Negative for injury and deformity, Skin: Negative for injury, rash, and discoloration, 18:43 Abdomen/GI: Positive for nausea and vomiting, Exam: 18:43 Constitutional: This is a well developed, well nourished patient who is awake, alert, ms3 and in no acute distress. Head/Face: Normocephalic, atraumatic. Cardiovascular: Regular rate and rhythm with a normal S1 and S2. No gallops, murmurs, or rubs. Normal PMI, no JVD. No pulse deficits. Respiratory: Lungs have equal breath sounds bilaterally, clear to auscultation and percussion. No rales, rhonchi or wheezes noted. No increased work of breathing, no retractions or nasal flaring. 18:43 Skin: Warm, dry with normal turgor. Normal color with no rashes, no lesions, and no evidence of cellulitis. MS/ Extremity: Pulses equal, no cyanosis. Neurovascular intact. Full, normal range of motion. 18:43 Abdomen/GI: Inspection: abdomen appears normal, Bowel sounds: diminished, in all quadrants, Palpation: moderate abdominal tenderness, in all quadrants, 18:48 ECG was reviewed by the Attending Physician. ms3 Vital Signs: 12:25 BP 182 / 69; Pulse 89; Resp 16; Temp 98.3(O); Pulse Ox 95% on R/A; Weight 55.34 kg; cm10 Height 5 ft. 4 in. ; Pain 0/10; 15:30 BP 181 / 79; Pulse 90; Resp 18; cm10 16:00 BP 155 / 55; Pulse 79; Resp 17; Pulse Ox 100% on R/A; cm10 17:37 BP 174 / 61; Pulse 75; Resp 16; Pulse Ox 93% on R/A; cm10 18:30 BP 155 / 72; Pulse 76; Resp 16; Pulse Ox 95% ; cm10 20:00 BP 144 / 81; Pulse 98; Resp 18; Temp 98; Pulse Ox 96% on R/A; rg5 12:25 Body Mass Index 20.94 (55.34 kg, 162.56 cm) cm10 12:25 Pain Scale: Adult cm10 MDM: 12:22 Medical Screening Exam initiated ms3 18:43 Differential diagnosis: Nonspecific abd pain, viral gastroenteritis, gastroenteritis, ms3 obstruction. Data reviewed: vital signs, nurses notes, lab test result(s), and as a result, I will admit patient. Consideration of Admission/Observation Patient was admitted/placed on observation. Management of patient was discussed with the following: Hospitalist: . I considered the following discharge prescriptions or medication management in the emergency department Medications were administered in the Emergency Department. See MAR. Independent interpretation of the following test(s) in the Emergency Department EKG: See my EKG interpretation above. Historians other than the Patient: EMS: [facility]. Counseling: I had a detailed discussion with the patient and/or guardian regarding the historical points, exam findings, and any diagnostic results supporting the discharge/admit diagnosis, lab results, radiology results, the need for further work-up and treatment in the hospital. ED course: Discussed case with Dr Barros he has evaluated patient in the emergency department. Discussed necessity for admission with patient and her granddaughter and they understand and agree with plan. Patient has remained in stable condition while in the emergency department. 07/18 13:19 Order name: Urine Culture EDMS 07/18 12:21 Order name: CBC with Diff; Complete Time: 14:40 ms3 07/18 12:21 Order name: CMP; Complete Time: 14:40 ms3 07/18 12:21 Order name: Lipase; Complete Time: 14:40 ms3 07/18 12:21 Order name: Urinalysis w/ reflexes; Complete Time: 14:40 ms3 07/18 13:46 Order name: Manual Differential; Complete Time: 14:40 EDMS 07/18 14:48 Order name: Blood Culture Adult (2) ms3 07/18 14:48 Order name: Lactate w/ 2H reflex if indic.; Complete Time: 16:26 ms3 07/18 14:48 Order name: Protime (+inr); Complete Time: 16:26 ms3 07/18 14:48 Order name: Ptt, Activated; Complete Time: 16:26 ms3 07/18 16:20 Order name: Basic Metabolic Panel EDMS 07/18 16:20 Order name: Basic Metabolic Panel EDMS 07/18 16:20 Order name: Basic Metabolic Panel EDMS 07/18 16:20 Order name: Basic Metabolic Panel EDMS 07/18 16:20 Order name: Basic Metabolic Panel EDMS 07/18 16:20 Order name: Basic Metabolic Panel EDMS 07/18 16:20 Order name: CBC with Automated Diff EDMS 07/18 16:20 Order name: CBC with Automated Diff EDMS 07/18 16:20 Order name: CBC with Automated Diff EDMS 07/18 16:20 Order name: CBC with Automated Diff EDMS 07/18 16:20 Order name: CBC with Automated Diff EDMS 07/18 16:20 Order name: CBC with Automated Diff EDMS 07/18 16:20 Order name: Magnesium EDMS 07/18 16:20 Order name: Magnesium EDMS 07/18 16:20 Order name: Magnesium EDMS 07/18 16:20 Order name: Magnesium EDMS 07/18 16:20 Order name: Magnesium EDMS 07/18 16:20 Order name: Magnesium EDMS 07/18 16:20 Order name: Phosphorus EDMS 07/18 16:20 Order name: Phosphorus EDMS 07/18 16:20 Order name: Phosphorus EDMS 07/18 16:20 Order name: Phosphorus EDMS 07/18 16:20 Order name: Phosphorus EDMS 07/18 16:20 Order name: Phosphorus EDMS 07/18 22:59 Order name: Glucose, Ancillary Testing EDMS 07/19 07:48 Order name: Glucose, Ancillary Testing EDMS 07/19 12:10 Order name: Glucose, Ancillary Testing EDMS 07/18 12:21 Order name: CT Abd/Pelvis - IV Contrast Only; Complete Time: 14:40 ms3 07/18 14:51 Order name: Abdomen 1 View (KUB) XRAY ms3 07/18 16:24 Order name: Abdomen W Erect EDMS 07/18 16:24 Order name: Abdomen W Erect EDMS 07/18 16:20 Order name: CONS Physician Consult EDMS 07/18 12:21 Order name: IV Saline Lock; Complete Time: 12:59 ms3 07/18 12:21 Order name: Labs collected and sent; Complete Time: 12:59 ms3 07/18 14:48 Order name: Accucheck; Complete Time: 19:20 ms3 07/18 14:48 Order name: Cardiac monitoring; Complete Time: 15:55 ms3 07/18 14:48 Order name: EKG - Nurse/Tech; Complete Time: 15:55 ms3 07/18 14:48 Order name: IV Saline Lock - Large Bore; Complete Time: 15:20 ms3 07/18 14:48 Order name: O2 Per Protocol; Complete Time: 15:20 ms3 07/18 14:48 Order name: O2 Sat Monitoring; Complete Time: 15:20 ms3 07/18 14:48 Order name: Vital Signs; Complete Time: 15:20 ms3 07/18 14:51 Order name: Nasogastric Tube; Complete Time: 15:42 ms3 EC:48 Rate is 82 beats/min. Rhythm is regular. Left axis deviation noted. SC interval is ms3 normal. QRS interval is prolonged. Clinical impression: NSR w/ Non-specific ST/T Changes and nonspecific intraventricular block. Interpreted by me. Reviewed by me. Administered Medications: 12:59 Drug: Famotidine IVP 20 mg IVP once; dilute with 10 mL 0.9% NaCl; give over 2 minutes cm10 Route: IVP; Site: Port-a-cath; 13:30 Follow up: Response: No adverse reaction cm10 12:59 Drug: Ondansetron IVP 4 mg IVP once; over 2 minutes Route: IVP; Site: Port-a-cath; cm10 13:30 Follow up: Response: No adverse reaction cm10 12:59 Drug: NS 0.9% IV 500 ml 500 ml IV at 1 bolus once; to be given as a bolus over 30 cm10 minutes Volume: 500 ml; Route: IV; Rate: 1 bolus; Site: Port-a-cath; 13:45 Follow up: Response: No adverse reaction; IV Status: Completed infusion; IV Intake: cm10 500ml 15:55 Drug: Rocephin IV 1 grams IV at calculated rate once; Given slow IV push per pharmacy cm10 instructions Route: IV; Rate: calculated rate; Site: Port-a-cath; 16:35 Follow up: Response: No adverse reaction; IV Status: Completed infusion; IV Intake: [id number] Disposition Summary: 07/18/24 14:52 Hospitalization Ordered Notes: Hospitalization Status: Inpatient Admission ms3 Provider: Anny Montoya ms3 Condition: Stable ms3 Problem: new ms3 Symptoms: are unchanged ms3 Bed/Room Type: Standard ms3 Location: [facility] ER HOLD(07/18/24 20:42) rv1 Room Assignment: ERHOLD-(07/18/24 20:42) rv1 Diagnosis - Small Bowel obstruction ms3 - Vomiting ms3 Forms: - Medication Reconciliation Form ms3 - SBAR form ms3 - Leadership Thank You Letter ms3 Signatures: Dispatcher [employer] EDAnt Quach DO DO ms3 Lacy Sanders rv1 Raquel Giang bc6 Aura Booker, RN RN cm10 Corrections: (The following items were deleted from the chart) 14:49 14:49 BLOOD CULTURE*+BA.LAB.BRZ ordered. EDMS EDMS 14:49 14:49 LACTATE+C.LAB.BRZ ordered. EDMS EDMS 14:49 14:49 PROTIME (+INR)+COAG.LAB.BRPatricia ordered. EDMS EDMS 14:49 14:49 PTT, ACTIVATED+COAG.LAB.BRPatricia ordered. EDMS EDMS 17:00 14:52 ms3 bc6 19:38 17:00 407 bc6 rv1 20:42 14:52 Telemetry/MedSurg (Inpatient) ms3 rv1 20:42 19:38 rv1 rv1
--- NOTE | 2024-07-18 14:53 | ER ---
Nurse's Notes [facility] Name: Veronique Keller Age: 89 yrs Sex: Female : 1935 Arrival Date: 07/18/2024 Time: 11:54 Bed 19 Private MD: Diagnosis: Small Bowel obstruction;Vomiting Presentation: 07/18 12:25 Chief complaint: EMS states: CALLED TO PATIENT'S HOME DUE TO PATIENT VOMITING FOR THE cm10 LAST 15HRS AND FOR PT BEING MORE CONFUSED. PT A\\T\\OX4. Coronavirus screen: Client denies travel out of the [place] in the last 14 days. Ebola Screen: Patient denies travel to an Ebola-affected area in the 21 days before illness onset. No symptoms or risks identified at this time. Initial Sepsis Screen: Does the patient meet any 2 criteria? No. Patient's initial sepsis screen is negative. Does the patient have a suspected source of infection? No. Patient's initial sepsis screen is negative. Risk Assessment: Do you want to hurt yourself or someone else? Patient reports no desire to harm self or others. Onset of symptoms was July 18, 2024. 12:25 Method Of Arrival: EMS: [facility] cm10 12:25 Acuity: RAMEZ 3 cm10 Triage Assessment: 12:25 General: Appears in no apparent distress. comfortable, Behavior is calm, cooperative. cm10 Pain: Complains of pain in abdomen. Neuro: No deficits noted. Level of Consciousness is awake, alert, obeys commands. Respiratory: No deficits noted. Airway is patent Respiratory effort is even, unlabored, Respiratory pattern is regular, symmetrical. GI: No deficits noted. Abdomen is distended, Reports nausea, vomiting. Historical: - Allergies: 12:26 No Known Allergies; cm10 - PMHx: 12:26 BREAST CA; Hypercholesterolemia; Hypertensive disorder; cm10 - PSHx: 12:26 B mastectomy; cm10 - Immunization history:: Adult Immunizations up to date. - Infectious Disease History:: Denies. - Social history:: Smoking status: Patient/guardian denies using tobacco, the patient reports quitting approximately 15 years ago. Screenin:57 [facility] ED Fall Risk Assessment (Adult) History of falling in the last 3 months, cm10 including since admission No falls in past 3 months (0 pts) Confusion or Disorientation No (0 pts) Intoxicated or Sedated No (0 pts) Impaired Gait Yes (1 pt) Mobility Assist Device Used Yes (1 pt) Altered Elimination Yes (1 pt) Score/Fall Risk Level 0 - 2 = Low Risk Oriented to surroundings, Maintained a safe environment, Hourly rounding (assess needs \\T\\ fall precautionary measures) done. Abuse screen: Denies threats or abuse. Denies injuries from another. Nutritional screening: No deficits noted. Tuberculosis screening: No symptoms or risk factors identified. Assessment: 16:00 Reassessment: Patient appears in no apparent distress at this time. No changes from cm10 previously documented assessment. Patient and/or family updated on plan of care and expected duration. Pain level reassessed. Patient is alert, oriented x 3, equal unlabored respirations, skin warm/dry/pink. 17:57 Reassessment: Patient appears in no apparent distress at this time. No changes from cm10 previously documented assessment. Patient and/or family updated on plan of care and expected duration. Pain level reassessed. Patient is alert, oriented x 3, equal unlabored respirations, skin warm/dry/pink. 18:57 Reassessment: PT'S BRIEF CHANGED AT THIS TIME. cm10 19:05 Reassessment: No changes from previously documented assessment. Patient and/or family rg5 updated on plan of care and expected duration. Pain level reassessed. Patient is alert, oriented x 3, equal unlabored respirations, skin warm/dry/pink. 19:10 Reassessment: Granddaughter at bedside, is power of polisher dial, granddaughter states rs5 "contact me if there are any questions about her care [phone]". Vital Signs: 12:25 BP 182 / 69; Pulse 89; Resp 16; Temp 98.3(O); Pulse Ox 95% on R/A; Weight 55.34 kg; cm10 Height 5 ft. 4 in. ; Pain 0/10; 15:30 BP 181 / 79; Pulse 90; Resp 18; cm10 16:00 BP 155 / 55; Pulse 79; Resp 17; Pulse Ox 100% on R/A; cm10 17:37 BP 174 / 61; Pulse 75; Resp 16; Pulse Ox 93% on R/A; cm10 18:30 BP 155 / 72; Pulse 76; Resp 16; Pulse Ox 95% ; cm10 20:00 BP 144 / 81; Pulse 98; Resp 18; Temp 98; Pulse Ox 96% on R/A; rg5 12:25 Body Mass Index 20.94 (55.34 kg, 162.56 cm) cm10 12:25 Pain Scale: Adult cm10 ED Course: 12:05 Patient arrived in ED. sb4 12:08 Ant Johnson DO is Attending Physician. ms3 12:25 Aura Booker, RN is Primary Nurse. cm10 12:26 Triage completed. cm10 12:26 Arm band placed on right wrist. Patient placed in an exam room, on a stretcher. cm10 12:50 Accessed Port-a-Cath. Blood collected. using accessed w/ # 20 [place] needle, ,sterile cm10 technique, per hospital protocol. Clean \\T\\ dry. Dressing intact. Good blood return. Flushes easily. 12:59 CBC with Diff Sent. cm10 12:59 CMP Sent. cm10 12:59 Lipase Sent. cm10 12:59 Urinalysis w/ reflexes Sent. cm10 13:27 CT Abd/Pelvis - IV Contrast Only In Process Unspecified. EDMS 14:51 Anny Montoya is Hospitalizing Provider. ms3 15:20 Ptt, Activated Sent. cm10 15:20 Protime (+inr) Sent. cm10 15:20 Lactate w/ 2H reflex if indic. Sent. cm10 15:42 NGT: inserted 14 Fr. via right nare. verified placement of air over stomach, Placement cm10 verified by X-ray. 16:34 Abdomen 1 View (KUB) XRAY In Process Unspecified. EDMS 18:07 REPORT FAXED [id number]. ESTELA CONFIRMED RECEIVED AT 1805. cm10 19:05 Phan Quintana, RN is Primary Nurse. rg5 19:05 No provider procedures requiring assistance completed. Patient admitted, IV remains in rg5 place. intact, No redness/swelling at site. 19:08 Patient has correct armband on for positive identification. Bed in low position. Call cm10 light in reach. Side rails up X2. Provided Education on: NEED FOR ADMIT. Report given to ANNA RICHARDS. Administered Medications: 12:59 Drug: Famotidine IVP 20 mg IVP once; dilute with 10 mL 0.9% NaCl; give over 2 minutes cm10 Route: IVP; Site: Port-a-cath; 13:30 Follow up: Response: No adverse reaction cm10 12:59 Drug: Ondansetron IVP 4 mg IVP once; over 2 minutes Route: IVP; Site: Port-a-cath; cm10 13:30 Follow up: Response: No adverse reaction cm10 12:59 Drug: NS 0.9% IV 500 ml 500 ml IV at 1 bolus once; to be given as a bolus over 30 cm10 minutes Volume: 500 ml; Route: IV; Rate: 1 bolus; Site: Port-a-cath; 13:45 Follow up: Response: No adverse reaction; IV Status: Completed infusion; IV Intake: cm10 500ml 15:55 Drug: Rocephin IV 1 grams IV at calculated rate once; Given slow IV push per pharmacy cm10 instructions Route: IV; Rate: calculated rate; Site: Port-a-cath; 16:35 Follow up: Response: No adverse reaction; IV Status: Completed infusion; IV Intake: [id number] Medication: 19:05 VIS not applicable for this client. rg5 Intake: 13:45 IV: 500ml; Total: 500ml. cm10 16:35 IV: 50ml; Total: 550ml. cm10 Outcome: 14:52 Decision to Hospitalize by Provider. ms3 19:05 Admitted to ER Hold. Please see [facility] for further documentation. rg5 19:05 Condition: stable 19:05 Instructed on the need for admit, 12/03 13:37 Patient left the ED. rs5 Signatures: Dispatcher [employer] EDMS Ant Johnson DO DO ms3 Evelyn Acosta PA-C PA-C sb4 Lang Zuniga RN RN rs5 Aura Booker RN RN cm10 Phan Quintana, RN RN rg5 Corrections: (The following items were deleted from the chart) 00:18 1202 19:19 Phan Quintana RN is Primary Nurse. rg5 rg5
[2024-07-18 15:32] LABS: PT Prothrombin Time 15.7 SECONDS (9.4-12.5); PTT, Activated Partial Thromb 30.2 SECONDS (24.3-36.9); Protime INR 1.42
[2024-07-18] MEDS ORDERED: NA CHLORIDE 0.9% 0 ML ONE (15:38)
[2024-07-18] MEDS ORDERED: CEFTRIAXONE 1000 MG/VIAL ONE (15:38)
[2024-07-18] MEDS ORDERED: GLUCAGON 1 MG/VIAL IV PRN (16:12)
[2024-07-18] MEDS ORDERED: D50W 25 GM/50 ML SYRINGE IV PRN (16:12)
[2024-07-18] MEDS: METRONIDAZOLE 500mg IVPB 500 MG/100 ML BAG IV SCH (16:18)
[2024-07-18] MEDS: INSULIN REGULAR (HUMAN) 100 UNIT/ML SQ SCH (16:30)
[2024-07-18] MEDS ORDERED: D10W 125 ML IV PRN (16:36)
--- NOTE | 2024-07-18 16:53 | RAD REPORT ---
EXAM: XR Abdomen 1 View (KUB) HISTORY: [facility] ng tube placement Bed Name: 19 COMPARISON: Same day CT of the abdomen FINDINGS: Single view of the abdomen shows central abdominal small bowel dilation, with small bowel c aliber reaching up to 5 cm. Enteric tube tip terminates probably at the level of the antrum, considering the presence of a known hiatal hernia. Excreted contrast along the urinary tracts noted N o suspicious calcifications are seen. The bones are unremarkable. IMPRESSION: Central abdominal small bowel dilation concerning for obstruction. Enteric tube position as above.
[2024-07-18] MEDS ORDERED: HEPARIN/D5W 25,000 UNIT/500 ML BAG IV SCH (17:00)
[2024-07-18] MEDS: D5 0.45 NS 1,000 ML IV SCH (17:00)
--- NOTE | 2024-07-18 17:40 | P.HP ---
Certification for Inpatient Patient admitted to: Inpatient With expected LOS: >2 Midnights Practitioner: I am a practitioner with admitting privileges, knowledge of patient current condition, hospital course, and medical plan of care. Services: Services provided to patient in accordance with Admission requirements found in Title 42 Section 412.3 of the Code of Federal Regulations Patient History Date of Service: 07/18/24 Reason for admission: SBO History of Present Illness: Veronique Keller is an 89 year old female with Pmhx HTN, VA with stent, CHF, DM- NIDDM, Afib, TAVR, Watchman, breast and bladder cancer, who presents to the ED with N/V and feeling constipated since Thursday. She reports her vomit is green with black flecks, she denies abdominal pain on palpation, tolerating the NGT. Laboratory evaluation significant for WBC 22, BUN/creatinine 24/1.34, GFR 38, Serum glucose 224. CT abd/pelvis showing Moderate right layering pleural effusion, and complete or high grade small bowel obstruction. Veronique will be admitted to hospitalist service for further treatment of acute small bowel obstruction, Dr. Barros consulted. Allergies No Known Allergies Allergy (Verified 02/28/24 06:53) Home Medications: Aspirin 81 mg PO DAILY 02/26/18 Gabapentin [Gralise] 300 mg PO BEDTIME 02/26/18 dilTIAZem HCL [Diltiazem 24Hr ER (LA)] 240 mg PO DAILY 05/31/18 Chlorthalidone 1 tab PO BEDTIME 06/22/20 Losartan Potassium 1 tab PO BEDTIME 06/22/20 Simvastatin 40 mg PO BEDTIME 07/21/22 Citalopram [Celexa*] 10 mg PO DAILY 02/18/24 Furosemide 20 mg PO DAILY 02/18/24 Solifenacin [Vesicare*] 5 mg PO DAILY 02/18/24 Docusate/Senna [Senokot-S*] 2 tab PO BEDTIME tab 02/29/24 Ensure Enlive 237 ml PO BID can 02/29/24 Medihoney [Medihoney Woundcare Gel*] 1 appl TOP DAILY #1 tube 02/29/24 - Past Medical/Surgical History Diabetic: No -: Hypertension -: CAD -: Diastolic CHF with reduced EF -: Peripheral vascular disease -: Former smoker -: Breast cancer -: HLD -: Mastectomy - Social History Smoking Status: Former smoker Alcohol use: No CD- Drugs: No Caffeine use: No Review of Systems General: Weakness Gastrointestinal: Nausea, Vomiting, Constipation Genitourinary: Hematuria Musculoskeletal: Back Pain Physical Examination - Physical Exam General: Alert, In no apparent distress, Oriented x3 HEENT: Atraumatic, Normocephalic, PERRLA Neck: Supple, 2+ carotid pulse no bruit Respiratory: Clear to auscultation bilaterally, Normal air movement Cardiovascular: Normal pulses, Regular rate/rhythm, Systolic murmur Capillary refill: <2 Seconds Gastrointestinal: Normal bowel sounds, Soft and benign, Non-distended, No tenderness Musculoskeletal: No clubbing Integumentary: No rashes Neurological: Normal gait - Studies Laboratory Data (last 24 hrs) 07/18/24 07/18/24 07/18/24 15:15 12:50 12:50 WBC 22.40 H Hgb 13.5 Hct 40.0 Plt Count 259 PT 15.7 H INR 1.42 APTT 30.2 Sodium 140 Potassium 3.4 L BUN 24 H Creatinine 1.34 H Glucose 224 H Total Bilirubin 0.8 AST 19 ALT < 14 Alkaline Phosphatase 77 Lipase 9 L Assessment and Plan - Plan Assessment and Plan Acute Small bowel obstruction -CT abd/pelvis reports "complete or high grade SBO" -NGT to LIWS -NPO, gentle IVF -Cipro/flagyl -Abdominal xray in the AM -Dr. Barros consulted -No acute abdomen at this time, conservative treatment -Protonix BID Right pleural effusion -Monitor while on IVF -oxygen protocol PRN Diabetes Mellitus -treated with diet -Serum glucose 224 -Accucheck with SSI VAL likely 2/2 vomiting -BUN/creatinine 24/1.34, GFR 38 -gentle IVF Hx TAVR Hx VA with stent Hx CHF HX Afib Recent watchman placed -Heparin gtt while NPO and holding Eliquis HTN/HLD -Contnue home medications when appropriate Bladder cancer s/p chemo Hematuria -Seeing Dr. Garcia Outpatient -Watchman was placed to stop the Eliquis in 6 weeks -H/H stable, will continue to monitor Dvt PPx heparin gtt-while NPO Full code [place] 2-3 days Discharge Plan: Home Plan to discharge in: 72 Hours - Advance Directives Does patient have a Living Will: Yes Does patient have a Durable POA for Healthcare: Yes
--- NOTE | 2024-07-18 20:27 | CON ---
Date of Consultation: 07/18/2024 Reason: Small bowel obstruction. History Of Present Illness: The patient is an 89-year-old female who presents to the emergency room with 3-day history of constipation. No bowel movement. No flatus. Had nausea, vomiting, and lower abdominal pain, worsening over the last 3 days. She is awake, alert. She states that she has not nation d a normal bowel movement since Thursday. She did throw up once a while in the ER. She denies any s ore throat, runny nose, cough, headaches, dizziness, chest pain, fever or chills at this time. She h as had multiple abdominal surgeries in the past. She had a Watchman procedure couple of weeks ago an d is on anticoagulation. Review of Systems: Otherwise unremarkable. Past Medical History: Significant for breast cancer, hypercholesterolemia, hypertension, history of bladder cancer. Past Surgical History: Mastectomy, aortic aneurysm surgery, cholecystectomy, hysterectomy. Allergies: NO ALLERGIES. Social History: The patient was a smoker and drinker in the past, but has not in many, many years. Family History: Noncontributory. Physical Examination: Vital Signs: Stable. Her systolic is a little elevated. She is afebrile. General: She is awake, alert, oriented x3. Head and Neck: No neck masses. No JVD. Throat clear. Neck is supple. Chest: Clear. Heart: S1, S2. Abdomen: Soft, slightly distended. Minimal tenderness. No rebound. No rigidity. No guarding. Extremities: Adequately perfused. Nontender. Neuro: Nonfocal. Diagnostic Data: White count is 23.4 with left shift, platelets and H and H are within normal limits . INR is 1.42. Chemistry reviewed. Lactic acid is 1.2. Potassium is 3.4, BUN is 24, creatinine is 1.34. Her CT of the abdomen and pelvis reviewed with the radiologist, essentially which shows findi ngs of complete or high-grade small bowel obstruction with focal transition point in the left posteri or daniela-pelvis. Another focal transition point in the central pelvis may relate to another focal dil atation or peristalsis. Moderate right layering pleural effusion. Patchy right middle and lower lob e airspace opacities may reflect atelectasis or mild pneumonitis. Assessment: 89-year-old female with multiple medical problems with possible bowel obstruction. Recommendations: At this time, the patient does not have peritonitis and clinically in fair conditio n. We will begin with conservative management with NG tube, IV fluids, IV antibiotics, serial abdomi nal exam. We will repeat the abdominal x-rays in the morning. Should the patient improve, we will r ecommend conservative management. Should the patient not improve with conservative management, the p atient may need surgical intervention. Plan of care was discussed in detail with the hospitalist marco andrade as well as the granddaughter and the patient. /MODL Voice ID: [id number] Report ID: [id number]
[2024-07-18] MEDS ORDERED: SODIUM CHLORIDE 0.9% 10ML INJ IV PRN (20:58)
[2024-07-18] MEDS: CIPROFLOXACIN 400mg IV 400 MG/200 ML BAG IV SCH (21:00)
[2024-07-18] MEDS: PANTOPRAZOLE 40 MG INJ IVP SCH (21:00)
[2024-07-18] MEDS ORDERED: PANTOPRAZOLE 40 MG INJ ONE (21:45)
[2024-07-18] MEDS ORDERED: CIPROFLOXACIN 400mg IV 400 MG/200 ML BAG IV ONE (21:45)
[2024-07-18] MEDS ORDERED: D5 0.45 NS 1,000 ML IV ONE (21:46)
[2024-07-19] MEDS ORDERED: METRONIDAZOLE 500mg IVPB 500 MG/100 ML BAG IV ONE ×2 (01:28→09:30)
[2024-07-19 05:59] LABS: Absolute Lymphocytes (CBC) 0.3 K/uL (0.7-4.9); Absolute Monocytes 1.4 K/uL (0.1-1.3); Absolute Neutrophil 15.4 K/uL (1.8-8.0); Basophils % 0.1 % (0-1.3); Hematocrit 36.7 % (36.0-45.0); Hemoglobin 12.6 g/dL (12.0-15.0); Lymphocytes % 1.8 % (15.3-44.8); MCH 30.2 pg (27.0-35.0); MCHC 34.3 g/dL (32.0-36.0); MCV 87.8 fL (80-100); MPV 10.3 fL (7.6-11.3); Monocytes % 8.2 % (3.3-12.3); Neutrophils % 89.9 % (41.7-73.7); Nucleated Red Blood Cells % 0.1 % (0-0); Platelets 232 thou/uL (152-406); RBC Red Blood Cell Count 4.18 M/uL (3.86-4.86); Red Cell Distribution Width 14.2 % (12.1-15.2)
[2024-07-19 06:21] LABS: Anion Gap 10.7 mEq/L (5.0-15.0); Phosphorus 3.2 mg/dL (2.5-4.9)
[2024-07-19 06:25] LABS: Magnesium 1.5 mg/dL (1.6-2.4); Potassium 3.7 mEq/L (3.5-5.1)
--- NOTE | 2024-07-19 07:06 | RAD REPORT ---
EXAM: 2 views of the abdomen HISTORY: Abdominal pain COMPARISON: 07/18/2024 FINDINGS: Supine and upright radiograph is obtained. Findings remain consistent with small bowel obst ruction. Loops of small bowel in the lower abdomen measuring up to 4.4 cm. Overall, no significant change compared with 07/18/2024. Port-A-Cath present. Aortic valve prosthesis. Small right pleural eff usion. Previously noted enteric tube is been removed. IMPRESSION: 1. Findings remain consistent with small bowel obstruction without significant interval change in sma ll bowel dilatation compared with 07/18/2024. 2. The NG tube has been removed.
[2024-07-19 07:57] LABS: Blood Morphology Comment NOT SEEN (NOT SEEN); Platelet Estimate ADEQ; Platelets Clumped FEW; White Blood Cell Scan OK (OK)
[2024-07-19] MEDS ORDERED: INSULIN REGULAR (HUMAN) 100 UNIT/ML ONE (08:43)
[2024-07-19] MEDS ORDERED: PANTOPRAZOLE 40 MG INJ ONE (09:30)
[2024-07-19] MEDS ORDERED: CIPROFLOXACIN 400mg IV 400 MG/200 ML BAG IV ONE (09:30)
[2024-07-19] MEDS ORDERED: HEPARIN 500 UNIT/5 ML SYR IV ONE (09:52)
--- NOTE | 2024-07-19 10:48 | P.CNS ---
Date of Consult: 07/19/24 Chief Complaint: SBO History of Present Illness: Patient with PMH of atrial fibrillation s/p watchman, aortic stenosis s/p WILLIAM presented with abdominal pain, found to have SBO and plan is for possible lapratomy. dneies any cardiac symptoms Allergies No Known Allergies Allergy (Verified 02/28/24 06:53) Home medications list reviewed: Yes Home Medications: Aspirin 81 mg PO DAILY 02/26/18 Gabapentin [Gralise] 300 mg PO BEDTIME 02/26/18 dilTIAZem HCL [Diltiazem 24Hr ER ([place])] 240 mg PO DAILY 05/31/18 Chlorthalidone 1 tab PO BEDTIME 06/22/20 Losartan Potassium 1 tab PO BEDTIME 06/22/20 Simvastatin 40 mg PO BEDTIME 07/21/22 Citalopram [Celexa*] 10 mg PO DAILY 02/18/24 Furosemide 20 mg PO DAILY 02/18/24 Solifenacin [Vesicare*] 5 mg PO DAILY 02/18/24 Docusate/Senna [Senokot-S*] 2 tab PO BEDTIME tab 02/29/24 Ensure Enlive 237 ml PO BID can 02/29/24 Medihoney [Medihoney Woundcare Gel*] 1 appl TOP DAILY #1 tube 02/29/24 - Past Medical/Surgical History Diabetic: No -: Hypertension -: CAD -: Diastolic CHF with reduced EF -: Peripheral vascular disease -: Former smoker -: Breast cancer -: HLD -: Mastectomy - Social History Alcohol use: No CD- Drugs: No Caffeine use: No Review of Systems 10-point ROS is otherwise unremarkable Physical Examination Temp Pulse Resp BP Pulse Ox 98 F 93 H 18 155/95 H 96 07/19/24 03:37 07/19/24 03:37 07/19/24 03:37 07/19/24 03:37 07/19/24 03:37 General: Alert, In no apparent distress HEENT: Atraumatic, PERRLA, Mucous membr. moist/pink, EOMI, Sclerae nonicteric Neck: Supple, 2+ carotid pulse no bruit, No LAD, Without JVD or thyroid abnormality Respiratory: Clear to auscultation bilaterally, Normal air movement Cardiovascular: Regular rate/rhythm, Normal S1 S2 Gastrointestinal: Normal bowel sounds, No tenderness Musculoskeletal: No tenderness Integumentary: No rashes Neurological: Normal gait, Normal speech, Normal tone, Normal affect Lymphatics: No axilla or inguinal lymphadenopathy Laboratory Data (last 24 hrs) 07/18/24 07/18/24 07/18/24 15:15 12:50 12:50 WBC 22.40 H Hgb 13.5 Hct 40.0 Plt Count 259 PT 15.7 H INR 1.42 APTT 30.2 Sodium 140 Potassium 3.4 L BUN 24 H Creatinine 1.34 H Glucose 224 H Total Bilirubin 0.8 AST 19 ALT < 14 Alkaline Phosphatase 77 Lipase 9 L - Problems (1) Preoperative clearance Current Visit: Yes Status: Acute Plan: Patient had a recent coronary angiogram that was normal, but patient had a recent watchman placement, almost 2 weeks ago, would advise to stop eliquis and bridge with heparin around the time of surgery until patient is able to be back on eliquis again. patient is cleared as intermediate cardiac risk (2) Atrial fibrillation Current Visit: No Status: Acute Plan: s/p watchman, recommendations as above. (3) History of transcatheter aortic valve implantation (WILLIAM) Current Visit: No Status: Acute Plan: get and echo to check on valve function.
--- NOTE | 2024-07-19 11:15 | PN ---
Date of Progress Note: 07/19/2024 Subjective: The patient is confused. She pulled her NG tube out twice. She is unable to state her pain level. She has not had a bowel movement. Objective: Vital Signs: Stable. She is afebrile. Abdomen: Soft and is nondistended. There is tenderness, but there is no obvious peritonitis. Laboratory Data: White count of 17.2 with a left shift. Chemistry reviewed. Magnesium is low, whic h is being replaced. Her abdominal x-ray reviewed with the radiologist and there is absolutely no si gnificant change in her small bowel obstruction pattern. I reviewed the CAT scan with the radiologis t as well and appeared that the patient may have closed loop obstruction. Assessment: Small bowel obstruction with likely closed loop obstruction. Recommendations: At this point, I think surgical intervention is the right next step as this will no t improve with NG tube decompression as it is a closed loop obstruction. Therefore, we will proceed with exploratory laparotomy, possible bowel resection. The risks, benefits, alternatives were explai rahul to the granddaughter who is the power of corporate associate attorney in detail. She understands and agrees. /MODL Voice ID: [id number] Report ID: [id number]
[2024-07-19] MEDS ORDERED: propofoL 200 MG/20 ML VIAL IV ONE (13:31)
[2024-07-19] MEDS ORDERED: ONDANSETRON 4 MG/2 ML VIAL ONE (13:31)
[2024-07-19] MEDS ORDERED: dexAMETHasone 10 MG/ML VIAL ONE (13:31)
[2024-07-19] MEDS ORDERED: ROCURONIUM 50 MG/5 ML VIAL IV ONE (13:31)
[2024-07-19] MEDS ORDERED: FENTANYL CITR 100 MCG/2 ML ONE (13:31)
[2024-07-19] MEDS: NA CHLORIDE 0.9% 1,000 ML ONE (14:13)
[2024-07-19] MEDS ORDERED: Phenylephrine HCl 10 MG/ML 1 ML VIAL ONE (14:53)
[2024-07-19] MEDS: SUGAMMADEX SODIUM 200 MG/2 ML VIAL IV ONE (15:24)
--- NOTE | 2024-07-19 15:48 | P.OP ---
Date of Service: 07/19/24 Preop diagnosis: Small bowel obstruction Postop diagnosis: Same with adhesive band Procedure performed: Exploratory laparotomy and lysis of adhesion Surgeon: Rosendo Barros MD Media Marketing Director: None Estimated blood loss: Minimal Specimen: None Findings: As above Anesthesia: General Complications: None none Drains: None Fluids and blood products: Nonapplicable Disposition: Recovery room Operative note: Patient brought to the OR and placed in the supine position. General anesthesia began. Patient prepped and draped in usual sterile fashion. A 20 blade used to make a midline incision from above the umbilicus towards pubis. Subcutaneous tissue divided and bleeding controlled cautery. Fascia identified and divided. Peritoneal cavity entered. Serous serous fluid encountered. Fluid aspirated. Exploratory laparotomy revealed normal stomach, dilated jejunum and normal duodenal sweep. Jejunum was dilated all the way to the proximal ileum which was in the pelvis and there was an adhesive band causing a complete obstruction. Adhesive band was lysed with LigaSure. Complete release of the obstruction occurred. Fluid from the dilated small bowel into the collapsed small bowel. No other evidence of obstruction was identified. Ascending colon, transverse colon, sigmoid colon and rectum were within normal limit. No other evidence of disease was identified. Entire abdomen was irrigated with effluent clear. There was no evidence of bleeding or bowel injury appreciated. There was good motility in the dilated bowel. There was no evidence of any ischemic changes seen in the proximal bowel. Liver was within normal limit. NG tube was in the proper place in the stomach. After the counts were correct, the fascia was closed with #2 nylon. Appearance was irrigated and bleeding controlled cautery. 3-0 chromic used to reapproximate subcutaneous tissue. Staple used to close skin. Sterile dressing applied. Patient awakened and taken to recovery room in good general condition. CC:
[2024-07-19] MEDS ORDERED: ONDANSETRON 4 MG/2 ML VIAL IV PRN (16:02)
[2024-07-19] MEDS: LABETALOL 20 MG/4ML SYRINGE IV ONE (16:22)
--- NOTE | 2024-07-19 16:29 | RAD REPORT ---
EXAM: XR of the abdomen HISTORY: Abdominal pain Placement of NGT/OGT. Post Insertion. COMPARISON: Multiple prior studies reviewed FINDINGS: XR of the abdomen shows a significant distention of multiple small bowel loops.. Enteric tu be tip takes a somewhat atypical course likely because the majority of the stomach is intrathoracic. The tip of the enteric tube is likely within the stomach distally, however.
[2024-07-19 17:39] LABS: Hematocrit 38.5 % (36.0-45.0)
[2024-07-19] MEDS: NA CHLORIDE 0.9% 1,000 ML IV SCH (18:16)
--- NOTE | 2024-07-19 18:24 | P.PN ---
Date of Service: 07/19/24 Subjective Sleeping this AM, did not tolerate NGT Surgery today, NGT placed Transfered to ICU post surgery, hemodynamically stable ROS 10 point ROS as noted above, otherwise negative Physical Exam General: Alert and Oriented x3, NAD HEENT: Atraumatic, Normocephalic, PERRLA Neck: Supple, 2+ carotid pulse no bruit Respiratory: Clear to auscultation bilaterally, Normal air movement, on RA Cardiovascular: Normal pulses, Regular rate/rhythm, Systolic murmur Capillary refill: <2 Seconds Gastrointestinal: Normal bowel sounds, Soft on palpation, ND/NT Musculoskeletal: No clubbing Integumentary: No rashes Neurological: Normal gait Vitals Reviewed Problem list Acute Small bowel obstruction s/p Exploratory laparotomy lysis of adhesions Right pleural effusion Diabetes Mellitus VAL likely 2/2 vomiting Hx TAVR Hx MS with stent Hx CHF HX Afib Recent watchman placed HTN/HLD Bladder cancer s/p chemo Hematuria Assessment and Plan Acute Small bowel obstruction s/p Exploratory laparotomy lysis of adhesions -CT abd/pelvis reports "complete or high grade SBO" -NGT to LIWS -NPO, gentle IVF -Cipro/flagyl -Abdominal xray in the AM -Dr. Barros consulted -No acute abdomen at this time, conservative treatment -Protonix BID Right pleural effusion -Monitor while on IVF -oxygen protocol PRN Diabetes Mellitus -treated with diet -Serum glucose 224 -Accucheck with SSI VAL likely 2/2 vomiting -BUN/creatinine 24/1.34, GFR 38 -gentle IVF Hx TAVR Hx MS with stent Hx CHF HX Afib Recent watchman placed -Heparin gtt while NPO and holding Eliquis HTN/HLD -Contnue home medications when appropriate Bladder cancer s/p chemo Hematuria -Seeing Dr. Garcia Outpatient -Watchman was placed to stop the Eliquis in 6 weeks -H/H stable, will continue to monitor Dvt PPx heparin gtt-while NPO Full code Los 2-3 days Discharge Plan: Home Plan to discharge in: 72 Hours
[2024-07-19] MEDS: HYDROMORPHONE HCL 0.5 MG/0.5 ML INJ IV PRN (20:12)
[2024-07-19 21:46] LABS: Absolute Lymphocytes (CBC) 0.3 K/uL (0.7-4.9); Absolute Neutrophil 10.1 K/uL (1.8-8.0); Basophils % 0.2 % (0-1.3); Hematocrit 36.4 % (36.0-45.0); Lymphocytes % 2.3 % (15.3-44.8); MCH 29.3 pg (27.0-35.0); MCHC 32.8 g/dL (32.0-36.0); MCV 89.3 fL (80-100); MPV 10.8 fL (7.6-11.3); Monocytes % 8.4 % (3.3-12.3); Platelets 221 thou/uL (152-406); RBC Red Blood Cell Count 4.08 M/uL (3.86-4.86); Red Cell Distribution Width 14.4 % (12.1-15.2)
[2024-07-19 21:47] LABS: Neutrophils % 89.1 % (41.7-73.7); PT Prothrombin Time 14.4 SECONDS (9.4-12.5); PTT, Activated Partial Thromb 29.4 SECONDS (24.3-36.9); Protime INR 1.3
[2024-07-19] MEDS: HEPARIN/D5W 25,000 UNIT/500 ML BAG IV SCH (22:38)
[2024-07-20 05:12] LABS: Absolute Lymphocytes (CBC) 0.4 K/uL (0.7-4.9); Absolute Neutrophil 9.9 K/uL (1.8-8.0); Eosinophils % 0.1 % (0-4.4); Hematocrit 37.3 % (36.0-45.0); Hemoglobin 12.5 g/dL (12.0-15.0); Lymphocytes % 3.3 % (15.3-44.8); MCH 29.8 pg (27.0-35.0); MCHC 33.6 g/dL (32.0-36.0); MCV 88.7 fL (80-100); Monocytes % 8.9 % (3.3-12.3); Platelets 245 thou/uL (152-406); RBC Red Blood Cell Count 4.21 M/uL (3.86-4.86); Red Cell Distribution Width 14.4 % (12.1-15.2)
[2024-07-20 05:18] LABS: Neutrophils % 87.7 % (41.7-73.7)
[2024-07-20 05:23] LABS: Anion Gap 7.4 mEq/L (5.0-15.0); Magnesium 1.7 mg/dL (1.6-2.4); Phosphorus 2.2 mg/dL (2.5-4.9); Potassium 3.4 mEq/L (3.5-5.1)
[2024-07-20] MEDS: POTASSIUM PHOS IN 0.9 % NACL 15 MMOL/250 ML BAG IV ONE ×2 (06:11→06:19)
[2024-07-20] MEDS: KCL 20 MEQ/100 mL IVPB 20 MEQ/100 ML BAG IV ONE (06:18)
[2024-07-20] MEDS: MAGNESIUM SULFATE 1 gm IVPB 1 GM/100 ML BAG IV ONE (06:19)
--- NOTE | 2024-07-20 10:45 | PN ---
Subjective: The patient is awake, confused. The patient had to be restrained, so she would not pull her catheters and tubes out. Her vitals are stable. She is afebrile. Laboratory data shows a whit e count of 11.3 with a left shift, which is improving. She is on a heparin drip. Chemistry reviewed . Her potassium and phosphorus are being replaced. Her abdomen is soft with hypoactive bowel sounds . Dressings are clean, dry, and intact. Urine output is adequate. Gastric drainage is 25 cc. Assessment: Status post exploratory laparotomy, lysis of adhesions for small bowel obstruction. Recommendations: Continue NG tube, IV fluids, IV antibiotics, PT consult, incentive spirometry. The patient is clinically stable; however, she is confused right now. We will keep her in the ICU as sh e is requiring some restraint. Will probably discontinue the NG tube and [place]patrick within the next 24 ho urs. /MODL Voice ID: [id number] Report ID: [id number]
--- NOTE | 2024-07-20 11:41 | P.PN ---
Subjective Date of Service: 07/20/24 Chief Complaint: SBO Subjective: No new changes, No C/O voiced, Tolerating diet, Ambulating, Improving Review of Systems 10-point ROS is otherwise unremarkable Physical Examination - Vital Signs Temperature: 97.3 F Blood Pressure: 163/69 Pulse: 81 Respirations: 23 Pulse Ox (%): 100 - Physical Exam General: Alert, In no apparent distress HEENT: Atraumatic, PERRLA, EOMI Neck: Supple, JVD not distended Respiratory: Clear to auscultation bilaterally, Normal air movement Cardiovascular: Regular rate/rhythm, Normal S1 S2 Gastrointestinal: Normal bowel sounds, No tenderness Musculoskeletal: No tenderness Integumentary: No rashes Neurological: Normal speech, Normal tone, Normal affect Lymphatics: No axilla or inguinal lymphadenopathy - Studies Microbiology Data (last 24 hrs): 07/18/24 12:50 Clean Catch Urine [place] Count - Final >100,000 CFU/ML. 07/18/24 12:50 Clean Catch Urine - Final Proteus Mirabilis Medications List Reviewed: Yes Assessment And Plan - Current Problems (Diagnosis) (1) Atrial fibrillation Current Visit: No Status: Acute Plan: s/p watchman, continue heparin drip until patient able to take PO then restart her Eliquis. (2) History of transcatheter aortic valve implantation (WILLIAM) Current Visit: No Status: Acute Plan: get and echo to check on valve function.
--- NOTE | 2024-07-20 12:55 | P.PN ---
Date of Service: 07/20/24 Subjective Being monitored in ICU Confused than baseline, requiring restraints to leave NGT placed ROS 10 point ROS as noted above, otherwise negative Physical Exam General: Alert and Oriented x1-2, NAD HEENT: Atraumatic, Normocephalic, PERRLA Neck: Supple, 2+ carotid pulse no bruit Respiratory: Clear to auscultation bilaterally, Normal air movement, on RA Cardiovascular: Normal pulses, Regular rate/rhythm, Systolic murmur Capillary refill: <2 Seconds Gastrointestinal: Normal bowel sounds, Soft on palpation, ND/NT, abdominal dressing CDI Musculoskeletal: No clubbing Integumentary: No rashes Neurological: Normal gait Vitals Reviewed Problem list Acute Small bowel obstruction s/p Exploratory laparotomy lysis of adhesions AMS-metabolic encephalopathy versus delirium Right pleural effusion Diabetes Mellitus VAL likely 2/2 vomiting Hx TAVR Hx [place] with stent Hx CHF HX Afib Recent watchman placed HTN/HLD Bladder cancer s/p chemo Hematuria Plan Acute Small bowel obstruction s/p Exploratory laparotomy lysis of adhesions 07/19 -CT abd/pelvis reports "complete or high grade SBO" -NGT to LIWS -NPO, gentle IVF -Cipro/flagyl -Dr. Barros consulted and following AMS-metabolic encephalopathy versus delirium More confused than baseline does have some underlying dementia Past related to anesthesia/pain medications versus ICU delirium PT consulted Restraints as needed to avoid pulling NGT Right pleural effusion -oxygen protocol PRN Diabetes Mellitus -Accucheck with SSI VAL likely 2/2 vomiting -gentle IVF -Monitor chemistry daily Hx TAVR Hx [place] with stent Hx CHF HX Afib Recent watchman placed -Heparin gtt while NPO and holding Eliquis Resume Eliquis when tolerating p.o. HTN/HLD -Contnue home medications when appropriate Bladder cancer s/p chemo Hematuria -Seeing Dr. Garcia Outpatient -Watchman was placed to stop the Eliquis in 6 weeks -H/H stable, will continue to monitor Dvt PPx heparin gtt-while NPO Full code Los 2-3 days Discharge Plan: Home Plan to discharge in: 72 Hours
[2024-07-21 05:10] LABS: Absolute Basophils 0.1 K/uL (0-0.5); Absolute Eosinophils 0.1 K/uL (0-0.5); Absolute Lymphocytes (CBC) 0.4 K/uL (0.7-4.9); Absolute Monocytes 0.9 K/uL (0.1-1.3); Absolute Neutrophil 8.9 K/uL (1.8-8.0); Basophils % 0.6 % (0-1.3); Eosinophils % 1.2 % (0-4.4); Hematocrit 35.3 % (36.0-45.0); Hemoglobin 11.7 g/dL (12.0-15.0); Lymphocytes % 3.7 % (15.3-44.8); MCH 29.5 pg (27.0-35.0); MCHC 33.1 g/dL (32.0-36.0); MCV 89.2 fL (80-100); Monocytes % 8.6 % (3.3-12.3); Platelets 242 thou/uL (152-406); RBC Red Blood Cell Count 3.96 M/uL (3.86-4.86); Red Cell Distribution Width 14.4 % (12.1-15.2)
[2024-07-21 05:32] LABS: Neutrophils % 85.9 % (41.7-73.7)
[2024-07-21 05:54] LABS: Anion Gap 9.3 mEq/L (5.0-15.0); Potassium 3.3 mEq/L (3.5-5.1)
[2024-07-21 05:56] LABS: Phosphorus 0.8 mg/dL (2.5-4.9)
[2024-07-21] MEDS ORDERED: POTASSIUM PHOS 30 MM in NA CHLORIDE 0.9% 500 ML IV ONE (06:01)
[2024-07-21] MEDS: POTASSIUM PHOS IN 0.9 % NACL 15 MMOL/250 ML BAG IV SCH (07:11)
--- NOTE | 2024-07-21 08:40 | P.PN ---
Date of Service: 07/21/24 Subjective Being monitored in ICU Pulled NGT yesterday afternoon C/O abdominal pain ROS 10 point ROS as noted above, otherwise negative Physical Exam General: Alert and Oriented x1-2, NAD HEENT: Atraumatic, Normocephalic, PERRLA Neck: Supple, 2+ carotid pulse no bruit Respiratory: Clear to auscultation bilaterally, Normal air movement, on RA Cardiovascular: Normal pulses, Regular rate/rhythm, Systolic murmur Capillary refill: <2 Seconds Gastrointestinal: Normal bowel sounds, Soft on palpation, ND/NT, abdominal dressing CDI/binder in place Musculoskeletal: No clubbing Integumentary: No rashes Neurological: Normal gait Vitals Reviewed Problem list Acute Small bowel obstruction s/p Exploratory laparotomy lysis of adhesions AMS-metabolic encephalopathy versus delirium Right pleural effusion Diabetes Mellitus VAL likely 2/2 vomiting Hx TAVR Hx [place] with stent Hx CHF HX Afib Recent watchman placed HTN/HLD Bladder cancer s/p chemo Hematuria Plan Acute Small bowel obstruction s/p Exploratory laparotomy lysis of adhesions 07/19 -CT abd/pelvis reports "complete or high grade SBO" -NGT pulled by pt 07/20-surgery aware-keep NPO for now -Cipro/flagyl -Dr. Barros consulted and following AMS-metabolic encephalopathy versus delirium More confused than baseline does have some underlying dementia Possibly related to anesthesia/pain medications versus ICU delirium PT consulted Restraints as needed to avoid pulling lines Right pleural effusion -oxygen protocol PRN Diabetes Mellitus -Accucheck with SSI VAL likely 2/2 vomiting -gentle IVF -Monitor chemistry daily Hx TAVR Hx [place] with stent Hx CHF HX Afib Recent watchman placed -Heparin gtt while NPO and holding Eliquis Resume Eliquis when tolerating p.o. HTN/HLD -Contnue home medications when appropriate Bladder cancer s/p chemo Hematuria -Seeing Dr. Garcia Outpatient -Watchman was placed to stop the Eliquis in 6 weeks -H/H stable, will continue to monitor Dvt PPx heparin gtt-while NPO Full code Los 2-3 days Discharge Plan: Home Plan to discharge in: 72 Hours
--- NOTE | 2024-07-21 10:28 | P.PN ---
Subjective Date of Service: 07/21/24 Chief Complaint: SBO Subjective: No new changes, No C/O voiced Review of Systems 10-point ROS is otherwise unremarkable Physical Examination - Vital Signs Temperature: 97.3 F Blood Pressure: 147/64 Pulse: 95 Respirations: 23 Pulse Ox (%): 95 - Physical Exam General: Alert, In no apparent distress HEENT: Atraumatic, PERRLA, EOMI Neck: Supple, JVD not distended Respiratory: Clear to auscultation bilaterally, Normal air movement Cardiovascular: Regular rate/rhythm, Normal S1 S2 Gastrointestinal: Normal bowel sounds, No tenderness Musculoskeletal: No tenderness Integumentary: No rashes Neurological: Normal speech, Normal tone, Normal affect Lymphatics: No axilla or inguinal lymphadenopathy - Studies Microbiology Data (last 24 hrs): 07/18/24 12:50 Clean Catch Urine [place] Count - Final >100,000 CFU/ML. 07/18/24 12:50 Clean Catch Urine - Final Proteus Mirabilis Medications List Reviewed: Yes Assessment And Plan - Current Problems (Diagnosis) (1) Atrial fibrillation Current Visit: No Status: Acute Plan: s/p watchman, continue heparin drip until patient able to take PO then restart her Eliquis. (2) History of transcatheter aortic valve implantation (WILLIAM) Current Visit: No Status: Acute Plan: get and echo to check on valve function.
[2024-07-21] MEDS: HYDROMORPHONE HCL 0.5 MG/0.5 ML INJ IV PRN (11:52)
--- NOTE | 2024-07-21 11:56 | PN ---
Date of Progress Note: 07/21/2024 Subjective: The patient is awake, alert today, more so than yesterday. Still confused somewhat. Objective: Vital Signs: Stable, afebrile. Abdomen: Soft, nondistended. Positive bowel sounds. Dressing is clean, dry, intact. Laboratory Data: Reviewed. Assessment: Status post exploratory laparotomy and lysis of adhesions for small bowel obstruction. Recommendations: We will start clear liquids, get Social service evaluation for discharge planning. The patient may benefit from inpatient rehab if she qualifies. We will see what the recommendation by Physical Therapy is. Continue current medical management. The patient clinically is improving. /MODL Voice ID: [id number] Report ID: [id number]
[2024-07-21] MEDS: APIXABAN 5 MG TABLET PO SCH (12:42)
[2024-07-21] MEDS: HYDROCODONE/APAP 5/325 MG TAB PO PRN (15:26)
[2024-07-21] MEDS: HYDRALAZINE HCL 20 MG/ML VIAL IV PRN (23:42)
[2024-07-22] MEDS: IPRATROPIUM BROM 0.5MG/2.5ML NEB PRN (00:03)
[2024-07-22] MEDS: ALBUTEROL 2.5 MG/3 ML NEB SOL NEB PRN (00:03)
[2024-07-22] MEDS: FUROSEMIDE 40 MG/4 ML VIAL IV ONE (00:57)
[2024-07-22] MEDS ORDERED: POTASSIUM PHOS 30 MM in NA CHLORIDE 0.9% 500 ML IV ONE (02:16)
[2024-07-22 02:21] LABS: Arterial Blood Carboxyhemoglob 1.6 % (0-1.5); Blood Gas Oxyhemoglobin 93.4 % (94-97); Blood Gas THB 13.9 g/dl (12-18); Blood O2 Saturation 96.3 % (92-98.5)
[2024-07-22] MEDS: POTASSIUM PHOS IN 0.9 % NACL 15 MMOL/250 ML BAG IV SCH (02:58)
[2024-07-22] MEDS ORDERED: WATER FOR INJ,STERILE 1,000 ML with NA BICARB 8.4% 100 MEQ IV SCH (03:00)
[2024-07-22] MEDS: NACHLORIDE 0.45% 1,000 ML IV ONE (03:32)
[2024-07-22] MEDS: SODIUM BICARB 50 MEQ/50ML VIAL ONE (03:35)
[2024-07-22] MEDS: NACHLORIDE 0.45% 1,000 ML with NA BICARB 8.4% 100 MEQ IV SCH (03:55)
[2024-07-22 05:20] LABS: Absolute Basophils 0.1 K/uL (0-0.5); Absolute Lymphocytes (CBC) 0.3 K/uL (0.7-4.9); Absolute Monocytes 1.4 K/uL (0.1-1.3); Absolute Neutrophil 19.6 K/uL (1.8-8.0); Basophils % 0.3 % (0-1.3); Hematocrit 43.1 % (36.0-45.0); Hemoglobin 13.8 g/dL (12.0-15.0); Lymphocytes % 1.2 % (15.3-44.8); MCHC 32.1 g/dL (32.0-36.0); MCV 90.2 fL (80-100); MPV 10.3 fL (7.6-11.3); Monocytes % 6.6 % (3.3-12.3); Neutrophils % 91.9 % (41.7-73.7); Platelets 300 thou/uL (152-406); RBC Red Blood Cell Count 4.78 M/uL (3.86-4.86); Red Cell Distribution Width 14.4 % (12.1-15.2)
[2024-07-22 05:38] LABS: Anion Gap 9.8 mEq/L (5.0-15.0); Magnesium 1.6 mg/dL (1.6-2.4); Phosphorus 2.9 mg/dL (2.5-4.9); Potassium 4.8 mEq/L (3.5-5.1)
--- NOTE | 2024-07-22 05:55 | RAD REPORT ---
XR CHEST 1 VIEW CLINICAL INDICATION: Wheezing COMPARISON: No prior images available for comparison at time of interpretation. FINDINGS: SUPPORT DEVICES: Right Port-A-Cath terminates over the superior to cortical junction. Multiple surgic al clips over bilateral chest. LUNGS/PLEURAL SPACES: Diffuse interstitial and airspace opacities in right lung and diffuse interstit ial opacity left lung may represent pulmonary edema with atelectasis. Small bilateral pleural effusions. No pneumothorax. HEART/MEDIASTINUM: Heart is normal in size. Atherosclerotic calcification at aortic arch. BONES/UPPER ABDOMEN/SOFT TISSUES: Multilevel thoracolumbar vertebral loss, likely chronic. IMPRESSION: 1. Diffuse interstitial and airspace opacities in right lung and diffuse interstitial opacity left lung may represent pulmonary edema with atelectasis. Small bilateral pleural effusions. Clinical correlation to exclude pneumonia. 2. Multilevel thoracolumbar vertebral loss, likely chronic. Electronically signed by: Magda De León MD 07/22/2024 01:39 AM [facility] [place] Due to temporary technical issues with the PACS/PriceMe reporting system, reports are being kaylan d by the in-house radiologist without review as a courtesy to ensure prompt reporting the interpreting radiologist is fully responsible for the content of the report. Transcribed Date/Time: 07/22/2024 5:54 AM
[2024-07-22] MEDS: MAGNESIUM SULFATE 1 gm IVPB 1 GM/100 ML BAG IV ONE (06:15)
[2024-07-22 06:42] LABS: Band Neutrophils 2 % (0-1); Blood Morphology Comment NOTED (NOT SEEN); Burr Cells 2+; Differential Total Cells Count 100; Lymphocytes 1 % (15-42); Monocytes 5 % (0-10); Platelet Estimate ADEQ; Segmented Neutrophils 92 % (40-80)
[2024-07-22] MEDS: CEFEPIME 1 GM in NA CHLORIDE 0.9% 100 ML IV SCH ×2 (08:02→20:44)
[2024-07-22] MEDS: FUROSEMIDE 40 MG/4 ML VIAL IV SCH (08:02)
--- NOTE | 2024-07-22 09:34 | P.PN ---
Date of Service: 07/22/24 Subjective Tachycardic, metabolic acidosis overnight Also had blood clot in ross which was replaced Much more alert, oriented today Denies abdominal pain CXR overnight with pulmonary edema vs pneumonia ROS 10 point ROS as noted above, otherwise negative Physical Exam General: Alert and Oriented x1-2, NAD HEENT: Atraumatic, Normocephalic, PERRLA Neck: Supple, 2+ carotid pulse no bruit Respiratory: Clear to auscultation bilaterally, Normal air movement, on RA Cardiovascular: Normal pulses, Regular rate/rhythm, Systolic murmur Capillary refill: <2 Seconds Gastrointestinal: Normal bowel sounds, Soft on palpation, ND/NT, abdominal dressing CDI/binder in place Musculoskeletal: No clubbing Integumentary: No rashes Neurological: Normal gait Vitals Reviewed Problem list Acute Small bowel obstruction s/p Exploratory laparotomy lysis of adhesions AMS-metabolic encephalopathy versus delirium Right pleural effusion, Pulmonary edema vs pneumonia Metabolic acidosis Diabetes Mellitus VAL likely 2/2 vomiting Hx TAVR Hx PR with stent Hx CHF HX Afib Recent watchman placed HTN/HLD Bladder cancer s/p chemo Hematuria Plan Acute Small bowel obstruction s/p Exploratory laparotomy lysis of adhesions 07/19 -CT abd/pelvis reports "complete or high grade SBO" -NGT pulled by pt 07/20 -Tolerating clears -WBC increased today, antibitoics broadened to cefepime flagyl -CXR with pulm edema vs pneumonia -Dr. Barros consulted and following -On exam abd soft and non tender this morning AMS-metabolic encephalopathy versus delirium Improving, alert, oriented x3 this morning does have some underlying dementia Possibly related to anesthesia/pain medications versus ICU delirium PT consulted Right pleural effusion, Pulmonary edema vs pneumonia -oxygen protocol PRN -Started in IV lasix BID -On NC at this time Diabetes Mellitus -Accucheck with SSI VAL likely 2/2 vomiting -gentle IVF -Monitor chemistry daily Hx TAVR Hx PR with stent Hx CHF HX Afib Recent watchman placed Eliquis resumed as pt tolerating clears HTN/HLD -Contnue home medications when appropriate Bladder cancer s/p chemo Hematuria -Seeing Dr. Garcia Outpatient -Watchman was placed to stop the Eliquis in 6 weeks -H/H stable, will continue to monitor Dvt PPx Eliquis Full code Los 2-3 days Discharge Plan: Home Plan to discharge in: 72 Hours
[2024-07-22] MEDS: WATER FOR INJ,STERILE 1,000 ML with NA BICARB 8.4% 100 MEQ IV SCH (09:57)
[2024-07-22 13:50] LABS: Anion Gap 9.7 mEq/L (5.0-15.0); Potassium 3.7 mEq/L (3.5-5.1)
[2024-07-22] MEDS: POTASSIUM CL SA 10 MEQ TAB PO ONE (16:11)
--- NOTE | 2024-07-22 16:15 | PN ---
Date of Progress Note: 07/22/2024 Subjective: The patient is awake, more alert, tolerating clear liquids. Objective: Vital Signs: Stable and afebrile. Abdomen: Soft, nondistended, nontender. Wound is clean, dry, and intact. Positive bowel sounds. Laboratory Data: Shows white count to be 21,000, and she is acidotic. She is being medically manage d for that. Chest x-ray shows some evidence of pneumonitis or pneumonia possibly or atelectasis. Assessment: Status post exploratory laparotomy, lysis of adhesions for small-bowel obstruction. Recommendation: Medical management per the hospitalist team. It does not appear that the abdomen is the source of infection at this time. However, should she not improve with the antibiotics within t he next 24 hours, we may consider getting a CT of the abdomen and pelvis. In the meantime, discharge planning. She is probably inpatient rehab candidate, when she is medically stable, which I anticipa te would be the next couple of days. /MODL Voice ID: [id number] Report ID: [id number]
[2024-07-22 16:34] VITALS: BMI 23.1
--- NOTE | 2024-07-22 22:48 | PN ---
Date of Progress Note: 07/22/2024 Subjective: Seen by bedside. She was sitting in the chair, doing well. She was in sinus rhythm. Review of Systems: No chest pain, shortness of breath, orthopnea, cough, nausea, vomiting, diarrhea. All other systems reviewed and they are negative. Physical Examination: Vital Signs: Reviewed. Head and Neck: Pupils are equal, reactive to light. Intact eye movements. No JVD. No cervical lym phadenopathy. Neck supple. Thyroid is not enlarged. Lungs: Clear to auscultation bilaterally. No rhonchi, wheezing, or crackles. No accessory muscle u se. Heart: Regular rate and rhythm. No extra sounds. Abdomen: Soft, nontender. Bowel sounds positive. No organomegaly. No masses or hernia. No rigidi ty or rebound. Extremities: No clubbing or cyanosis. Intact pulses. Skin: No rash. No nodules. Neurologic: Alert, awake, oriented x3. No acute focal deficits appreciated. Lymph Nodes: No cervical or axillary lymphadenopathy. Investigations: BUN is 15, creatinine 0.96, and hemoglobin is 13.8. Assessment And Recommendation: 1.Atrial fibrillation. She is in sinus rhythm. Recommend to start her on metoprolol 25 mg twice a day by mouth. She is status post appendage closure, so continue aspirin. 2.Congestive heart failure, diastolic. She appears to be doing well. BUN and creatinine are still stable. Recommend switching to oral Lasix by tomorrow and plan accordingly. 3.History of TAVR. Obtain echo to evaluate the aortic valve bioprosthesis. SR/MODL Voice ID: [id number] Report ID: [id number]
[2024-07-23 06:15] LABS: Absolute Basophils 0.1 K/uL (0-0.5); Absolute Eosinophils 0.2 K/uL (0-0.5); Absolute Lymphocytes (CBC) 0.6 K/uL (0.7-4.9); Absolute Monocytes 0.8 K/uL (0.1-1.3); Absolute Neutrophil 10.5 K/uL (1.8-8.0); Basophils % 0.7 % (0-1.3); Eosinophils % 1.9 % (0-4.4); Hematocrit 35.8 % (36.0-45.0); Hemoglobin 11.9 g/dL (12.0-15.0); Lymphocytes % 5.2 % (15.3-44.8); MCH 29.3 pg (27.0-35.0); MCHC 33.2 g/dL (32.0-36.0); MPV 9.8 fL (7.6-11.3); Monocytes % 6.9 % (3.3-12.3); Neutrophils % 85.3 % (41.7-73.7); Platelets 265 thou/uL (152-406); RBC Red Blood Cell Count 4.07 M/uL (3.86-4.86); Red Cell Distribution Width 13.7 % (12.1-15.2)
[2024-07-23 06:36] LABS: AST/SGOT 17 U/L (15-37); Albumin 2.2 g/dL (3.4-5.0); Albumin/Globulin Ratio 0.8 (1.1-1.8); Alkaline Phosphatase 65 U/L (45-117); Anion Gap 9.5 mEq/L (5.0-15.0); BUN Blood Urea Nitrogen 16 mg/dL (7-18); Bicarbonate 23 mEq/L (21-32); Bilirubin Total 0.5 mg/dL (0.2-1.0); Globulin 2.6 g/dL (2.3-3.5); Glomerular Filtration Rate 60 ml/min (=/>90); Glucose Level 142 mg/dL (74-106); Magnesium 1.7 mg/dL (1.6-2.4); Potassium 3.5 mEq/L (3.5-5.1); Protein, Total 4.8 g/dL (6.4-8.2); Sodium Level 143 mEq/L (136-145)
[2024-07-23 06:50] LABS: ALT/SGPT < 14 U/L (13-56)
[2024-07-23 06:51] LABS: Phosphorus 1.3 mg/dL (2.5-4.9)
[2024-07-23] MEDS: POTASSIUM CL SA 10 MEQ TAB PO ONE (07:59)
[2024-07-23] MEDS: POTASS/SODIUM PHOSPHATE 1 PKT POWD.PACK PO SCH (08:00)
[2024-07-23] MEDS: METOPROLOL XL 50 MG TAB PO ONE (08:57)
--- NOTE | 2024-07-23 09:40 | PN ---
Date of Progress Note: 07/23/2024 Subjective: The patient is awake, alert. Had a bowel movement. She is very oriented now. She is i n no acute distress. Denies any significant abdominal pain. Kirkpatrick still has some red sediments and occasional clots. Her vitals are stable. She is afebrile. Laboratory data reviewed. White count i s down to 12,000. Abdomen is benign. Assessment: Status post exploratory laparotomy and lysis of adhesion. Recommendations: Patient cleared for downgrade to the regular floor. Awaiting inpatient rehab [facility] after another 24-48 hours. Clinically, she is doing well. I will discuss with the hospitalist antelmo galo regarding addressing her bladder issue as she does have a history of a bladder mass. Whether it is cancer or not is unclear at this time. She was supposed to follow up with Dr. Garcia as an outpa tient, so we will address that issue while in the hospital stay night. SAMANTHA/GIANCARLO Voice ID: [id number] Report ID: [id number]
[2024-07-23] MEDS: GLUCERNA SHAKE 237 ML CAN PO SCH (13:14)
[2024-07-23] MEDS: MAGNESIUM SULFATE 1 gm IVPB 1 GM/100 ML BAG IV ONE (13:14)
--- NOTE | 2024-07-23 13:51 | P.PN ---
Date of Service: 07/23/24 Subjective mental status improving Denies abdominal pain Respiratory status improved WBC down trending ROS 10 point ROS as noted above, otherwise negative Physical Exam General: Alert and Oriented x1-2, NAD HEENT: Atraumatic, Normocephalic, PERRLA Neck: Supple, 2+ carotid pulse no bruit Respiratory: Clear to auscultation bilaterally, Normal air movement, on RA Cardiovascular: Normal pulses, Regular rate/rhythm, Systolic murmur Capillary refill: <2 Seconds Gastrointestinal: Normal bowel sounds, Soft on palpation, ND/NT, abdominal dressing CDI/binder in place, ross in place Musculoskeletal: No clubbing Integumentary: No rashes Neurological: Normal gait Vitals Reviewed Problem list Acute Small bowel obstruction s/p Exploratory laparotomy lysis of adhesions AMS-metabolic encephalopathy versus delirium Right pleural effusion, Pulmonary edema vs pneumonia Metabolic acidosis Diabetes Mellitus VAL likely 2/2 vomiting Hx TAVR Hx MT with stent Hx CHF HX Afib Recent watchman placed HTN/HLD Bladder cancer s/p chemo Hematuria Plan Acute Small bowel obstruction s/p Exploratory laparotomy lysis of adhesions 07/19 -CT abd/pelvis reports "complete or high grade SBO" -NGT pulled by pt 07/20 -Tolerating diet -WBC improved, antibitoics broadened to cefepime flagyl 07/22 -CXR with pulm edema vs pneumonia- repeat CXR in AM -Dr. Barros consulted and following -On exam abd soft and non tender this morning -Had BM overnight AMS-metabolic encephalopathy versus delirium Improving, alert, oriented x3 this morning does have some underlying dementia Possibly related to anesthesia/pain medications versus ICU delirium PT consulted Right pleural effusion, Pulmonary edema vs pneumonia -oxygen protocol PRN -Started in IV lasix BID-reduced to 20mg daily -On NC at this time Diabetes Mellitus -Accucheck with SSI VAL likely 2/2 vomiting -Monitor chemistry daily Hx TAVR Hx MT with stent Hx CHF HX Afib Recent watchman placed Eliquis resumed as pt tolerating diet HTN/HLD -Contnue home medications when appropriate Bladder cancer s/p chemo Hematuria -Seeing Dr. Garcia Outpatient -Watchman was placed to stop the Eliquis in 6 weeks -H/H stable, will continue to monitor Dvt PPx Eliquis Full code Los 2-3 days Discharge Plan: INP rehab Plan to discharge in: 24-48 hours
[2024-07-23] MEDS: METOPROLOL TAR 25 MG TAB PO SCH (17:03)
[2024-07-23] MEDS: JUVEN PACKET PO SCH (20:43)
[2024-07-23] MEDS: MELATONIN 5 MG TABLET PO PRN (22:24)
[2024-07-24 05:26] LABS: Hematocrit 31.9 % (36.0-45.0); Hemoglobin 10.8 g/dL (12.0-15.0); MCH 29.5 pg (27.0-35.0); MCHC 33.9 g/dL (32.0-36.0); MCV 87.1 fL (80-100); MPV 9.5 fL (7.6-11.3); Platelets 234 thou/uL (152-406); RBC Red Blood Cell Count 3.66 M/uL (3.86-4.86); Red Cell Distribution Width 14.1 % (12.1-15.2)
[2024-07-24 05:50] LABS: Albumin/Globulin Ratio 0.8 (1.1-1.8); Anion Gap 7.4 mEq/L (5.0-15.0); Bilirubin Total 0.5 mg/dL (0.2-1.0); Globulin 2.6 g/dL (2.3-3.5); Potassium 3.4 mEq/L (3.5-5.1); Protein, Total 4.6 g/dL (6.4-8.2)
--- NOTE | 2024-07-24 07:10 | RAD REPORT ---
EXAM: Chest Single View HISTORY: eval pulm edema vs pneumonia COMPARISON: 07/22/2024 FINDINGS: LUNGS/PLEURA: Bilateral interstitial and airspace disease, right greater than left, with decreased federico ng volumes but overall similar airspace disease compared with 07/22/2024. Bilateral pleural effusions suspected. MEDIASTINUM: The mediastinal silhouette is within normal limits. CARDIAC: Similar size. Aortic valve prosthesis. UPPER ABDOMEN: No significant abnormality. BONES: No acute fracture. LINES/TUBES/OTHER: Port-A-Cath with tip overlying the proximal SVC. IMPRESSION: Similar asymmetric bilateral airspace disease which may represent a combination of pulmonary edema an d right-sided pneumonia. Small pleural effusions present.
[2024-07-24] MEDS: POTASS/SODIUM PHOSPHATE 1 PKT POWD.PACK PO SCH (08:56)
[2024-07-24] MEDS ORDERED: FUROSEMIDE 20 MG/ 2ML VIAL IV SCH (09:00)
--- NOTE | 2024-07-24 10:12 | PN ---
Date of Progress Note: 07/24/2024 Subjective: The patient is awake and alert. She is complaining a little bit of shortness of breath. Her Lasix was increased this morning because her chest x-ray showed some pleural effusion and fluid overload. She is tolerating diet. She is having bowel movement. She is passing gas. Physical Examination: Vital Signs: Stable. Afebrile. Abdomen: Benign. Assessment: Status post exploratory laparotomy and lysis of adhesions for small-bowel obstruction. Recommendations: Medical management for her respiratory issues and probably in the next 24 to 48 alpesh rs, she can go to inpatient rehab. The patient from a surgical point of view is doing well. /MODL Voice ID: [id number] Report ID: [id number]
[2024-07-24] MEDS: FUROSEMIDE 20 MG/ 2ML VIAL IV SCH (10:16)
--- NOTE | 2024-07-24 10:22 | P.PN ---
Date of Service: 07/24/24 Subjective mental status improving Denies abdominal pain Still witgh mild dyspnea WBC down trending Kirkpatrick DC'd overnight voiding freely ROS 10 point ROS as noted above, otherwise negative Physical Exam General: Alert and Oriented x1-2, NAD HEENT: Atraumatic, Normocephalic, PERRLA Neck: Supple, 2+ carotid pulse no bruit Respiratory: Clear to auscultation bilaterally, Normal air movement, on RA Cardiovascular: Normal pulses, Regular rate/rhythm, Systolic murmur Capillary refill: <2 Seconds Gastrointestinal: Normal bowel sounds, Soft on palpation, ND/NT, abdominal dressing CDI/binder in place Musculoskeletal: No clubbing Integumentary: No rashes Neurological: Normal gait Vitals Reviewed Problem list Acute Small bowel obstruction s/p Exploratory laparotomy lysis of adhesions AMS-metabolic encephalopathy versus delirium Right pleural effusion, Pulmonary edema vs pneumonia Metabolic acidosis Diabetes Mellitus VAL likely 2/2 vomiting Hx TAVR Hx PA with stent Hx CHF HX Afib Recent watchman placed HTN/HLD Bladder cancer s/p chemo Hematuria Plan Acute Small bowel obstruction s/p Exploratory laparotomy lysis of adhesions 07/19 -CT abd/pelvis reports "complete or high grade SBO" -NGT pulled by pt 07/20 -Tolerating diet -WBC improved, antibitoics broadened to cefepime flagyl 07/22 -CXR with pulm edema vs pneumonia, persistent as of AM 07/24 -Increased IV lasix dose this morning will reassess this afternoon to determine if needing more lasix this afternoon/evening -Dr. Barros consulted and following -On exam abd soft and non tender this morning -+ bowel function/BMs AMS-metabolic encephalopathy versus delirium-improved Improving, alert, oriented x3 this morning does have some underlying dementia Possibly related to anesthesia/pain medications versus ICU delirium PT consulted Right pleural effusion, Pulmonary edema vs pneumonia -oxygen protocol PRN -Started in IV lasix -On NC at this time Diabetes Mellitus -Accucheck with SSI VAL likely 2/2 vomiting -Monitor chemistry daily Hx TAVR Hx PA with stent Hx CHF HX Afib Recent watchman placed Eliquis resumed as pt tolerating diet HTN/HLD -Contnue home medications when appropriate Bladder cancer s/p chemo Hematuria -Seeing Dr. Garcia Outpatient -Watchman was placed to stop the Eliquis in 6 weeks -H/H stable, will continue to monitor -Kirkpatrick removed 12/8 AM, voiding freely today Dvt PPx Eliquis Full code Los 2-3 days Discharge Plan: INP rehab Plan to discharge in: 24-48 hours
[2024-07-24 13:31] LABS: C.diff Antigen/Toxin Ag neg : Tox neg (NEG : NEG); CDIFF INTERNAL NEG CONTROL White Background (WHITE BKGD); STOOL CONSISTENCY Liquid/Semi-Solid
[2024-07-24] MEDS: POTASSIUM 25 MEQ EFFERV TAB PO ONE (17:45)
[2024-07-24] MEDS: FUROSEMIDE 20 MG/ 2ML VIAL IV ONE (17:45)
[2024-07-24 20:20] LABS: Albumin 2.5 g/dL (3.4-5.0); Albumin/Globulin Ratio 0.9 (1.1-1.8); Anion Gap 8.2 mEq/L (5.0-15.0); Bilirubin Total 0.4 mg/dL (0.2-1.0); Globulin 2.8 g/dL (2.3-3.5); Magnesium 1.5 mg/dL (1.6-2.4); Potassium 4.2 mEq/L (3.5-5.1); Protein, Total 5.3 g/dL (6.4-8.2)
[2024-07-24 20:21] LABS: Phosphorus 1.3 mg/dL (2.5-4.9)
[2024-07-25] MEDS: POTASS/SODIUM PHOSPHATE 1 PKT POWD.PACK PO SCH ×2 (00:22→08:44)
[2024-07-25 06:08] LABS: Hematocrit 32.5 % (36.0-45.0); Hemoglobin 10.7 g/dL (12.0-15.0); MCHC 32.9 g/dL (32.0-36.0); MCV 88.2 fL (80-100); MPV 10.1 fL (7.6-11.3); Platelets 182 thou/uL (152-406); RBC Red Blood Cell Count 3.69 M/uL (3.86-4.86); Red Cell Distribution Width 14.4 % (12.1-15.2)
[2024-07-25 06:25] LABS: Albumin 2.1 g/dL (3.4-5.0); Albumin/Globulin Ratio 0.9 (1.1-1.8); Anion Gap 3.5 mEq/L (5.0-15.0); Bilirubin Total 0.3 mg/dL (0.2-1.0); Globulin 2.3 g/dL (2.3-3.5); Phosphorus 1.6 mg/dL (2.5-4.9); Potassium 3.5 mEq/L (3.5-5.1); Protein, Total 4.4 g/dL (6.4-8.2)
[2024-07-25] MEDS: MAGNESIUM SULFATE 1 gm IVPB 1 GM/100 ML BAG IV ONE (08:45)
[2024-07-25] MEDS: AMOX/K CLAV 875 MG TAB PO SCH (09:45)
[2024-07-25] MEDS: LOPERAMIDE HCL 2 MG CAPSULE PO STA (10:42)
[2024-07-25] MEDS: LACTOBACILLUS/ACIDOPHILUS TAB PO SCH (10:43)
--- NOTE | 2024-07-25 10:47 | ECHO ---
HEIGHT: 5 ft 4 in WEIGHT: 135 lb 0 oz DATE OF STUDY: 07/21/[address]: Andres Miles NP 2-DIMENSIONAL: YES M.MODE: YES DOPPLER: YES COLOR FLOW: YES TDS: NO PORTABLE: YES DEFINITY: NO BUBBLE STUDY: NO DIAGNOSIS: EVALUATE VALVES/WATCHMAN CARDIAC HISTORY: CATHERIZATION: SURGERY: PROSTHETIC VALVE: PACEMAKER: MEASUREMENTS (cm) DIASTOLIC (NORMALS) SYSTOLIC (NORMALS) IVSd 1.0 (0.6-1.2) LA Diam 3.2 (1.9-4.0) LVEF 59% LVIDd 4.5 (3.5-5.7) LVIDs 3.1 (2.0-3.5) %FS 31% LVPWd 1.2 (0.6-1.2) Ao Diam 2.1 (2.0-3.7) 2 DIMENSIONAL ASSESSMENT: RIGHT ATRIUM: NORMAL LEFT ATRIUM: ENLARGED RIGHT VENTRICLE: NORMAL LEFT VENTRICLE: NORMAL TRICUSPID VALVE: MILD TRICUSPID REGURGITATION MITRAL VALVE: MILD MITRAL REGURGITATION PULMONIC VALVE: MILD PULMONIC INSUFFICIENCY AORTIC VALVE: BIOPROSTHESIS IS PRESENT PERICARDIAL EFFUSION: NONE AORTIC ROOT: NORMAL LEFT VENTRICULAR WALL MOTION: NORMAL. DOPPLER/COLOR FLOW: SEE BELOW. COMMENTS: 1. NORMAL LEFT VENTRICULAR EJECTION FRACTION 55-60% WITH NORMAL WALL MOTION. 2. LEFT ATRIAL ENLARGEMENT 3. MILD (TRICUSPID, MITRAL REGURGITATION AND PULMONIC INSUFFICIENCY). 4. AORTIC VALVE BIOPROSTHESIS IS PRESENT WITH AT LEAST MODERATE STENOSIS. 5. DIASTOLIC DYSFUNCTION. TECHNOLOGIST: INDIRA DIAZ
--- NOTE | 2024-07-25 12:59 | P.PN ---
Date of Service: 07/25/24 Subjective mental status improving Denies abdominal pain Respiratory status improved Started having diarrhea again late this morning ROS 10 point ROS as noted above, otherwise negative Physical Exam General: Alert and Oriented x1-2, NAD HEENT: Atraumatic, Normocephalic, PERRLA Neck: Supple, 2+ carotid pulse no bruit Respiratory: Clear to auscultation bilaterally, Normal air movement, on RA Cardiovascular: Normal pulses, Regular rate/rhythm, Systolic murmur Capillary refill: <2 Seconds Gastrointestinal: Normal bowel sounds, Soft on palpation, ND/NT, abdominal dressing CDI/binder in place Musculoskeletal: No clubbing Integumentary: No rashes Neurological: Normal gait Vitals Reviewed Problem list Acute Small bowel obstruction s/p Exploratory laparotomy lysis of adhesions AMS-metabolic encephalopathy versus delirium Right pleural effusion, Pulmonary edema vs pneumonia Metabolic acidosis Diabetes Mellitus VAL likely 2/2 vomiting Hx TAVR Hx NM with stent Hx CHF HX Afib Recent watchman placed HTN/HLD Bladder cancer s/p chemo Hematuria Plan Acute Small bowel obstruction s/p Exploratory laparotomy lysis of adhesions 07/19 -CT abd/pelvis reports "complete or high grade SBO" -NGT pulled by pt 07/20 -Tolerating diet -WBC improved, antibitoics broadened to cefepime flagyl 07/22 -CXR with pulm edema vs pneumonia, persistent as of AM 07/24 -Increased IV lasix dose this morning will reassess this afternoon to determine if needing more lasix this afternoon/evening -Dr. Barros consulted and following -On exam abd soft and non tender this morning -+ bowel function/BMs -Noted having diarrhea yesterday Since yesterday and overnight had around 10 episodes of watery diarrhea Negative for C. difficile Additional stool studies sent Will try Imodium, probiotics After volume status closely, repeat chemistries/electrolytes in the morning Consider discharge to inpatient rehab tomorrow depending on diarrhea, electrolytes AMS-metabolic encephalopathy versus delirium-improved Improving, alert, oriented x3 this morning does have some underlying dementia Possibly related to anesthesia/pain medications versus ICU delirium PT consulted Right pleural effusion, Pulmonary edema vs pneumonia -oxygen protocol PRN -Started in IV lasix -On NC at this time Diabetes Mellitus -Accucheck with SSI VAL likely 2/2 vomiting -Monitor chemistry daily Hx TAVR Hx NM with stent Hx CHF HX Afib Recent watchman placed Eliquis resumed as pt tolerating diet HTN/HLD -Contnue home medications when appropriate Bladder cancer s/p chemo Hematuria -Seeing Dr. Garcia Outpatient -Watchman was placed to stop the Eliquis in 6 weeks -H/H stable, will continue to monitor -Kirkpatrick removed 12/8 AM, voiding freely today Dvt PPx Eliquis Full code Los 2-3 days Discharge Plan: INP rehab Plan to discharge in: 24-48 hours
--- NOTE | 2024-07-25 15:16 | PN ---
Date of Progress Note: 07/25/2024 Subjective: The patient is awake, alert. The patient has had multiple episodes of diarrhea. C diff is negative, however. She is tolerating diet. Pain is well controlled. Objective: Vitals: Stable, afebrile. Abdomen: Benign. Assessment: Status post exploratory laparotomy, lysis of adhesions. Recommendations: When the patient is medically cleared, she will be going up to inpatient rehab. Co ntinue physical therapy and medical management per the hospitalist team. /MODL Voice ID: [id number] Report ID: [id number]
[2024-07-25] MEDS ORDERED: LOPERAMIDE HCL 2 MG CAPSULE PO PRN (17:39)
[2024-07-25] MEDS: APIXABAN 2.5 MG TABLET PO SCH (20:38)
[2024-07-26 06:24] LABS: Hematocrit 33.5 % (36.0-45.0); Hemoglobin 11.5 g/dL (12.0-15.0); MCH 29.8 pg (27.0-35.0); MCHC 34.5 g/dL (32.0-36.0); MCV 86.5 fL (80-100); MPV 10.1 fL (7.6-11.3); Platelets 206 thou/uL (152-406); RBC Red Blood Cell Count 3.87 M/uL (3.86-4.86); Red Cell Distribution Width 14.4 % (12.1-15.2)
[2024-07-26 06:42] LABS: Albumin 2.2 g/dL (3.4-5.0); Albumin/Globulin Ratio 0.8 (1.1-1.8); Anion Gap 7.3 mEq/L (5.0-15.0); Bilirubin Total 0.4 mg/dL (0.2-1.0); Globulin 2.7 g/dL (2.3-3.5); Magnesium 1.5 mg/dL (1.6-2.4); Potassium 3.3 mEq/L (3.5-5.1); Protein, Total 4.9 g/dL (6.4-8.2)
[2024-07-26] MEDS: Magnesium Sulfate 2gm IVPB 2 G/50 ML BAG IV ONE (07:48)
[2024-07-26] MEDS: POTASSIUM 25 MEQ EFFERV TAB PO ONE (07:49)
[2024-07-26] MEDS: POTASS/SODIUM PHOSPHATE 1 PKT POWD.PACK PO SCH (07:50)
[2024-07-26] MEDS: FUROSEMIDE 20 MG TABLET PO SCH (08:04)
--- NOTE | 2024-07-26 11:02 | PN ---
Date of Progress Note: 07/26/2024 Subjective: Patient is awake, alert, tolerating diet, still having diarrhea but is decreased in the number of episodes. Objective: Vital Signs: Stable, afebrile. Abdomen: Benign. Assessment: Status post exploratory laparotomy for small bowel obstruction. Recommendation: Medical management and cleared for transfer to inpatient rehab when medically cleare dSailaja SINGH/MODFermin Voice ID: [id number] Report ID: [id number]
[2024-07-26] MEDS: Banana Flakes/T-Galactooligos 1 Dose Packet PO SCH (14:09)
[2024-07-26] MEDS ORDERED: ALBUTEROL 2.5 MG/3 ML NEB SOL NEB PRN (14:11)
[2024-07-26 21:21] LABS: Albumin 2.4 g/dL (3.4-5.0); Albumin/Globulin Ratio 0.9 (1.1-1.8); Anion Gap 6.8 mEq/L (5.0-15.0); Bilirubin Total 0.3 mg/dL (0.2-1.0); Globulin 2.6 g/dL (2.3-3.5); Magnesium 1.9 mg/dL (1.6-2.4); Phosphorus 2.8 mg/dL (2.5-4.9); Potassium 3.8 mEq/L (3.5-5.1)
[2024-07-27 08:00] LABS: Anion Gap 6.7 mEq/L (5.0-15.0); Magnesium 1.8 mg/dL (1.6-2.4); Phosphorus 2.7 mg/dL (2.5-4.9); Potassium 3.7 mEq/L (3.5-5.1)
[2024-07-27] MEDS: POTASSIUM CL SA 10 MEQ TAB PO ONE (09:25)
[2024-07-27] MEDS: MAGNESIUM SULFATE 1 gm IVPB 1 GM/100 ML BAG IV ONE (09:26)
[2024-07-27 09:40] VITALS: O2SAT 98
--- NOTE | 2024-07-27 09:40 | P.PN ---
Date of Service: 07/26/24 Subjective Awake feeling well Sat in chair to eat breakfast Decrease in diarrhea, no new complaint ROS 10 point ROS as noted above, otherwise negative Physical Exam General: AAO x3, NAD HEENT: Atraumatic, Normocephalic, PERRLA Neck: Supple, 2+ carotid pulse no bruit Respiratory: Clear to auscultation bilaterally, Normal air movement, on RA Cardiovascular: Normal pulses, RRR, Systolic murmur Capillary refill: <2 Seconds Gastrointestinal: Normal active bowel sounds, Soft on palpation, abdominal dressing CDI/binder in place Musculoskeletal: No clubbing Integumentary: No rashes Neurological: Normal gait Vitals Reviewed Problem list Acute Small bowel obstruction s/p Exploratory laparotomy lysis of adhesions AMS-metabolic encephalopathy versus delirium Right pleural effusion, Pulmonary edema vs pneumonia Metabolic acidosis Diabetes Mellitus VAL likely 2/2 vomiting Hx TAVR Hx SC with stent Hx CHF HX Afib Recent watchman placed HTN/HLD Bladder cancer s/p chemo Hematuria Plan Acute Small bowel obstruction s/p Exploratory laparotomy lysis of adhesions 07/19 -CT abd/pelvis reports "complete or high grade SBO" -NGT pulled by pt 07/20 -Tolerating diet -WBC improved, antibitoics broadened to cefepime flagyl 07/22 -CXR with pulm edema vs pneumonia, persistent as of AM 07/24 -Dr. Barros consulted and following -On exam abd soft and non tender this morning -+ bowel function/BMs -Noted having diarrhea yesterday Several episodes of watery diarrhea, decreased to one episode 07/26 Negative for C. difficile Additional stool studies sent Continue Imodium, probiotics, banana flakes After volume status closely, repeat chemistries/electrolytes in the morning Consider discharge to inpatient rehab tomorrow depending on diarrhea, electrolytes AMS-metabolic encephalopathy versus delirium-improved Improving, alert, oriented x3 this morning does have some underlying dementia Possibly related to anesthesia/pain medications versus ICU delirium PT consulted Right pleural effusion, Pulmonary edema vs pneumonia -oxygen protocol PRN -Started in IV lasix -On NC at this time Diabetes Mellitus -Accucheck with SSI VAL likely 2/2 vomiting -Monitor chemistry daily Hx TAVR Hx SC with stent Hx CHF HX Afib Recent watchman placed Eliquis resumed as pt tolerating diet HTN/HLD -Contnue home medications when appropriate Bladder cancer s/p chemo Hematuria -Seeing Dr. Garcia Outpatient -Watchman was placed to stop the Eliquis in 6 weeks -H/H stable, will continue to monitor -Kirkpatrick removed 12/8 AM, voiding freely today Dvt PPx Eliquis Full code Los 24 hours Discharge Plan: INP rehab
[2024-07-27 11:20] VITALS: BP 144/65; TEMP 97.6
--- NOTE | 2024-07-27 15:39 | P.DS ---
Admission Date: 07/18/24 Discharge Date: 07/27/24 Disposition: TRANSFER TO INPATIENT REHAB Discharge Condition: GOOD Reason for Admission: SBO Brief History of Present Illness: Diagnosis Acute Small bowel obstruction s/p Exploratory laparotomy lysis of adhesions AMS-metabolic encephalopathy versus delirium Right pleural effusion, Pulmonary edema vs pneumonia Metabolic acidosis Diabetes Mellitus VAL likely 2/2 vomiting Hx TAVR Hx NH with stent Hx CHF HX Afib Recent watchman placed HTN/HLD Bladder cancer s/p chemo Hematuria HPI 07/18/24 Veronique Keller is an 89 year old female with Pmhx HTN, NH with stent, CHF, DM- NIDDM, Afib, TAVR, Watchman, breast and bladder cancer, who presents to the ED with N/V and feeling constipated since Thursday. She reports her vomit is green with black flecks, she denies abdominal pain on palpation, tolerating the NGT. Laboratory evaluation significant for WBC 22, BUN/creatinine 24/1.34, GFR 38, Serum glucose 224. CT abd/pelvis showing Moderate right layering pleural effusion, and complete or high grade small bowel obstruction. Veronique will be admitted to hospitalist service for further treatment of acute small bowel obstruction, Dr. Barros consulted. Hospital Course: Veronique Keller is a pleasant 89-year-old female with a past medical history significant for HTN, NH with stent, CHF, DM-NIDDM, Afib, TAVR, Watchman, breast and bladder cancer who was admitted to the [facility] on 07/18/2024 for acute small bowel obstruction. Placed presented to the ED with nausea vomiting and feeling constipated. CT abdomen pelvis showing moderate right layering pleural effusion, and complete or high-grade small bowel obstruction. Dr. Barros was consulted and performed exploratory laparotomy with lysis of adhesions without complication on 06/19/2024. She experienced some delirium due to anesthesia and ICU stay, which has resolved. CXR on 07/24 showed pulmonary edema and successfully treated with IV lasix. She has tolerated IV antibiotics and PO diet. She is conversing well, ambulating with physical therapy, participating in her ADLs, and urinating without difficulty. She will discharge to continue home medications with follow up visits to her office auditor and Dr. Garcia. On 07/27/2024, Veronique was seen on morning rounds and deemed medically stable for discharge to inpatient rehab. Veronique was discharged with instructions to schedule follow-up appointments with PCP and Dr. Barros. Physical Exam General: Awake, alert, and oriented x3, NAD HEENT: Atraumatic, Normocephalic, PERRLA Neck: Supple, 2+ carotid pulse no bruit Respiratory: Clear to auscultation bilaterally, Normal air movement, on RA Cardiovascular: S1 S2 present, NSR, Systolic murmur Capillary refill: <2 Seconds Gastrointestinal: Normal active bowel sounds, Soft on palpation, abdominal dressing CDI/binder in place Musculoskeletal: No clubbing Integumentary: No rashes Neurological: Normal gait Vital Signs/Physical Exam: Temp Pulse Resp BP Pulse Ox 97.6 F 75 18 144/65 H 98 07/27/24 11:19 07/27/24 11:19 07/27/24 11:19 07/27/24 11:19 07/27/24 11:19 Laboratory Data at Discharge: WBC 9.40 thou/uL (4.3-10.9) 07/26/24 06:02 Hgb 11.5 g/dL (12.0-15.0) L 07/26/24 06:02 Hct 33.5 % (36.0-45.0) L 07/26/24 06:02 Plt Count 206 thou/uL (152-406) 07/26/24 06:02 PT 14.4 SECONDS (9.4-12.5) H 07/19/24 21:18 INR 1.30 07/19/24 21:18 APTT 66.4 SECONDS (24.3-36.9) H 07/21/24 11:50 Sodium 140 mEq/L (136-145) 07/27/24 07:40 Potassium 3.7 mEq/L (3.5-5.1) 07/27/24 07:40 BUN 25 mg/dL (7-18) H 07/27/24 07:40 Creatinine 0.63 mg/dL (0.55-1.02) 07/27/24 07:40 Glucose 134 mg/dL (74-106) H 07/27/24 07:40 Phosphorus 2.7 mg/dL (2.5-4.9) 07/27/24 07:40 Magnesium 1.8 mg/dL (1.6-2.4) 07/27/24 07:40 Total Bilirubin 0.3 mg/dL (0.2-1.0) 07/26/24 20:39 AST 19 U/L (15-37) 07/26/24 20:39 ALT 16 U/L (13-56) 07/26/24 20:39 Alkaline Phosphatase 82 U/L (45-117) D 07/26/24 20:39 Lipase 9 U/L (13-75) L 07/18/24 12:50 Home Medications: Aspirin 81 mg PO DAILY 02/26/18 Gabapentin [Gralise] 300 mg PO BEDTIME 02/26/18 dilTIAZem HCL [Diltiazem 24Hr ER (LA)] 180 mg PO DAILY 05/31/18 Chlorthalidone 1 tab PO BEDTIME 06/22/20 Losartan Potassium 50 mg PO BEDTIME 06/22/20 Simvastatin 40 mg PO BEDTIME 07/21/22 Citalopram [Celexa*] 10 mg PO DAILY 02/18/24 Furosemide 20 mg PO DAILY 02/18/24 Solifenacin [Vesicare*] 5 mg PO DAILY 02/18/24 Apixaban [Eliquis *] 2.5 mg PO BID 07/24/24 Hydrocodone 5/APAP 325 [[place] 5/325*] 1 tab PO Q6H PRN tab 07/25/24 Physician Discharge Instructions: Patient was admitted to the hospital for bowel obstruction. She had a high- grade bowel obstruction on admission and underwent ex lap with lysis of adhesions on 07/19/2024. Of note she had a recent Watchman procedure and was still on Eliquis outpatient, she had to be bridged with heparin during her h ospitalization but she has been transitioned back to Eliquis. Her hospitalization was complicated with leukocytosis after surgery as well as dyspnea. Chest x-ray was performed which was concerning for pulmonary edema versus pneumonia. Her antibiotics were broadened to cefepime, Flagyl which she has been on the past 2 days and improving. Her white blood cell count improved she was diuresed with IV Lasix and has had significant improvement in her respiratory status. She developed diarrhea on 07/24, she was tested for C. difficile which was negative. Diarrhea appears to be slowing down. She also had a Kirkpatrick catheter after surgery which has been removed, she has passed voiding trials and is tolerating using the PureWick well. She has been working well with physical therapy, mentation is also cleared as she did experience some delirium in the ICU. Patient has a Port-A-Cath/central line in place, she should not have any peripheral sticks. She also has lymphedema primarily of the right upper extremity and uses Kartik wrap for this which should be applied She has been experiencing some hypomagnesemia, hypophosphatemia which is likely secondary to GI loss/diarrhea, diuresis with Lasix. Electrolytes have been replaced. Patient has remained afebrile, white blood cell count stable at around 10 currently. UA was consistent with urinary tract infection, urine culture returned with Proteus which was sensitive to Augmentin, only resistant to Macrobid. Patient will be recommended to take 5 days of p.o. Augmentin after discharge to inpatient rehab Also would recommend to continue her Lasix at her home dose Patient will need to be continue Eliquis 2.5 mg bid until she is instructed by cardiology that she can hold it, she is undergoing evaluation for ongoing hematuria with Dr. Garcia outpatient. [facility] Manager Forms Call Shala Griggs RN at [phone] for questions or concerns after discharge. Expect a call within 1-2 business days of discharge. Diet: Gi Soft Activity: Fall precautions Followup: Mike Joya DO [Primary Care Provider] - 1 Week Rosendo Barros MD [ACTIVE - CAN ADMIT] - 1-2 Weeks
--- NOTE | 2024-08-02 12:13 | EKG ---
Test Date: 2024-07-18 Test Time: 15:50:08 Aviation Neuropsychologist: SOFIA MEASUREMENT RESULTS: Intervals: Rate: 82 CT: 164 QRSD: 146 QT: 428 QTc: 500 Cameron: P: 39 CT: 164 QRS: -43 T: 78 INTERPRETIVE STATEMENTS: Normal sinus rhythm Left axis deviation Nonspecific intraventricular block Abnormal ECG Compared to ECG 02/19/2024 23:11:56 Left-axis deviation now present Sinus arrhythmia no longer present Junctional escape complex(es) no longer present Myocardial infarct finding no longer present Electronically Signed On 08-02-24 12:07:57 PAUNCH TRIMMER by Kendrick Shepard
== END 2024-07-27 11:15 | DRG 335 ==
LOC: ER 11:54 → ERHOLD 16:12 → 4TH 19:28 → ERHOLD 19:40 → 3RD-ICU 07-19 14:58 → 4TH 07-23 10:52
PROVIDERS: ADMIT Internal Medicine; ATTEND Internal Medicine
PROC: 0DJ60ZZ Inspection of Stomach, Open Approach (ICD-10-PCS; 2024-07-19)
PROC: 0DH67UZ Insertion of Feeding Device into Stomach, Via Natural or Artificial Opening (ICD-10-PCS; 2024-07-19)
PROC: 0DN80ZZ Release Small Intestine, Open Approach (ICD-10-PCS; principal; 2024-07-19 13:00)
PROC: 4A033R1 Measurement of Arterial Saturation, Peripheral, Percutaneous Approach (ICD-10-PCS; 2024-07-22)
PROC: 5A09357 Assistance with Respiratory Ventilation, Less than 24 Consecutive Hours, Continuous Positive Airway Pressure (ICD-10-PCS; 2024-07-22)
PROC: 0T9B70Z Drainage of Bladder with Drainage Device, Via Natural or Artificial Opening (ICD-10-PCS; 2024-07-22)
DX: K56.50 Intestinal adhesions [bands], unspecified as to partial versus complete obstruction (principal); J18.9 Pneumonia, unspecified organism; E87.20 Acidosis, unspecified; I50.32 Chronic diastolic (congestive) heart failure; N17.9 Acute kidney failure, unspecified; F05 Delirium due to known physiological condition; K92.2 Gastrointestinal hemorrhage, unspecified; Z16.29 Resistance to other single specified antibiotic; J44.0 Chronic obstructive pulmonary disease with (acute) lower respiratory infection; N30.91 Cystitis, unspecified with hematuria; I11.0 Hypertensive heart disease with heart failure; E78.00 Pure hypercholesterolemia, unspecified; E11.9 Type 2 diabetes mellitus without complications; I48.91 Unspecified atrial fibrillation; E83.42 Hypomagnesemia; E83.39 Other disorders of phosphorus metabolism; K59.00 Constipation, unspecified; I25.10 Atherosclerotic heart disease of native coronary artery without angina pectoris; F03.90 Unspecified dementia, unspecified severity, without behavioral disturbance, psychotic disturbance, mood disturbance, and anxiety; I25.2 Old myocardial infarction; T41.45XA Adverse effect of unspecified anesthetic, initial encounter; B96.4 Proteus (mirabilis) (morganii) as the cause of diseases classified elsewhere; Z78.1 Physical restraint status; Z85.3 Personal history of malignant neoplasm of breast; Z95.5 Presence of coronary angioplasty implant and graft; Z79.82 Long term (current) use of aspirin; Z90.13 Acquired absence of bilateral breasts and nipples; Z85.51 Personal history of malignant neoplasm of bladder; Z90.49 Acquired absence of other specified parts of digestive tract; Z79.899 Other long term (current) drug therapy; Z87.891 Personal history of nicotine dependence; Z90.710 Acquired absence of both cervix and uterus; Z95.818 Presence of other cardiac implants and grafts
CPT/HCPCS: 36415; 36600; 71045; 74018; 74019; 74177; 80048; 80053; 81001; 82805; 82947; 83605; 83690; 83735; 84100; 84132; 85014; 85018; 85025; 85027; 85610; 85730; 87040; 87077; 87086; 87088; 87186; 87324; 93005; 93306; 94010; 94640; 96361; 96365; 96375; 97110; 97116; 97161; 97530; 99285; J0360; J0692; J0696; J0744; J1100; J1171; J1642; J1940; J2371; J2405; J2470; J2704; J3010; J3475; J3480; J7030; J7040; J7613; J7644; J7799; Q9967

== ENCOUNTER 2024-07-27 09:04 | Inpatient (IN) | payer OTHER ==
[2024-07-27 11:38] VITALS: BMI 22.3
[2024-07-27] MEDS ORDERED: HYDROCODONE/APAP 5/325 MG TAB PO PRN (11:44)
[2024-07-27 13:43] LABS: Specific Gravity 1.015 (1.005-1.030); Urine Bacteria None Seen /HPF (<20); Urine Bilirubin NEGATIVE (Negative); Urine Blood 3+ (Negative); Urine Clarity Extremely Turbid (Clear); Urine Color Yellow (Yellow); Urine Culture Reflex Order REFLEXED; Urine Glucose NEGATIVE (Negative); Urine Ketones NEGATIVE (Negative); Urine Micro Reflex YN NO BILL MICROSCOPIC; Urine Mucus Slight /HPF (None Seen); Urine Nitrite NEGATIVE (Negative); Urine Protein TRACE (Negative); Urine RBC >50 /HPF (None Seen); Urine Urobilinogen Normal (Normal); Urine WBC 20-50 /HPF (<5); Urine WBC Clump Rare /HPF (None Seen); Urine Yeast (Budding) Occasional /HPF (None Seen)
[2024-07-27] MEDS ORDERED: ACETAMINOPHEN 500 MG TAB PO PRN (14:21)
[2024-07-27] MEDS ORDERED: MELATONIN 3 MG TABLET PO PRN (14:22)
[2024-07-27] MEDS ORDERED: D10W 125 ML IV PRN (14:39)
[2024-07-27] MEDS ORDERED: GLUCAGON 1 MG/VIAL IM PRN (14:39)
[2024-07-27] MEDS: INSULIN REGULAR (HUMAN) 100 UNIT/ML SQ SCH (16:30)
[2024-07-27] MEDS: AMOX/K CLAV 875 MG TAB PO SCH (17:12)
[2024-07-27] MEDS: CHLORTHALIDONE 25 MG TAB PO SCH (21:13)
[2024-07-27] MEDS: ATORVASTATIN 20 MG TAB PO SCH (21:14)
[2024-07-27] MEDS: GABAPENTIN 300 MG CAP PO SCH (21:14)
[2024-07-27] MEDS: APIXABAN 2.5 MG TABLET PO SCH (21:14)
[2024-07-27] MEDS: LOSARTAN POTASSIUM 50 MG TABLET PO SCH (21:14)
[2024-07-27] MEDS: TROSPIUM CHLORIDE 20 MG TABLET PO SCH (21:14)
--- NOTE | 2024-07-28 03:53 | HP ---
Date of Admission: 07/27/2024 Time Of Service: 1 p.m. Chief Complaint: "I have problems with bowel movements, now better, and I am ready to do exercise." History Of Present Illness: Ms. Keller is an 89-year-old patient with hypertension, diabetes mellitus , coronary artery disease, diastolic CHF with reduced ejection fraction, former smoker, and breast ca ncer and has had mastectomy, who came to [facility] with constipation of several days' durat ion from July 16 until last week. She had vomiting with green appearing bile and black flecks in the vomit. Workup showed an acute small bowel obstruction. She had right pleural effusion and re nal insufficiency. Surgical intervention was necessary and she had an exploratory laparotomy with ly sis of adhesions. Following surgery, she had a complicated course of altered mental status potential ly related to the anesthetic effect and pain medications. She was treated for this. She had NG tube in and she pulled it out by herself on July 20. She had IV antibiotics, IV fluids, oxygen via nasal cannula, and managed by Nutrition with nutrition consultation, labs, and primary care physician evaluation and management. She did have when evaluated by Therapy, lack of endurance, significant d ifficulty mobilizing and transferring and beginning to ambulate. She required oxygenation and had si gnificant fatigue and doing very little activity. Previously, she was able to be independent to driv [employer], cook, clean, do entire grocery shopping without an assistive device. At this point, she requires minimum to contact guard assistance for bed mobility, sit to stand, ambulation, and again is very fat igued. As a result, she is now functioning well below her baseline level and requires aggressive inp atient rehabilitation along with management of her comorbid conditions to help her return to her [facility] level of functioning and reduce the risk of rehospitalization. Past Medical History: As noted above. Allergies: NO KNOWN DRUG ALLERGIES. Current Medications: Tylenol Extra Strength 500 mg every 6 hours as needed, Augmentin 875/125 twice daily, Eliquis 2.5 mg twice daily, aspirin 81 mg daily, Lipitor 20 mg at bedtime, [place] 25 mg at b edtime, Celexa 10 mg daily, Cardizem 180 mg daily, Lasix 20 mg daily, gabapentin 300 mg at bedtime, N orco 5/325 every 6 hours as needed, she has mild insulin sliding scale, Cozaar 50 mg at bedtime, alfredo tonin 3 mg at bedtime. X-ray/imaging: KUB on 07/18 shows central abdominal small bowel dilatation concerning for obstructio n. Enteric tube is positioned appropriately. X-ray of the abdomen on 07/19, findings consistent wit h small bowel obstruction without significant interval change and NG tube had been removed. KUB on 09/19, enteric tube tip takes a somewhat atypical course, likely because of majority of the stomach is intrathoracic. Laboratory Studies: White blood cell count 9.4, hemoglobin 11.5, hematocrit 33.5, platelets 206. So dium 140, potassium 3.7, glucose 134, BUN 25, creatinine 0.63, calcium 8.3, magnesium 1.9, albumin 2. 4. Family History: Noncontributory. Past Surgical History: Exploratory laparotomy as noted, she has had mastectomy for breast cancer. Review of Systems: She does report having a bowel movement now and mild pain at the abdominal site. She has had every o ther abdominal staple removed and mild edema in the lower extremity, but no other positives on a 10-p oint systems review. Current Level Of Functioning: Eating, supervision. Oral hygiene, setup assistance. Toileting, mode rate assistance. Showering, moderate assistance. Upper body dressing, contact guard assistance. Lo wer body dressing, moderate assistance. Donning and doffing footwear, moderate assistance. For roll ing [id number] she is independent, [id number] independent, for lying to sitting on side of bed m oderate assistance, for transferring from bed to toilet moderate assistance. Ambulation, she was abl e to ambulate about 250 feet with supervision to contact guard assistance. Physical Examination: Vital Signs: Blood pressure 136/67, pulse 76, respiratory rate 18, temperature 97.9, oxygen saturati on 97%, weight 122 pounds, height 5 feet 2 inches, BMI 22.3. General: Ms. Keller is sitting in a chair in the gym. HEENT: She is normocephalic, atraumatic. Sclerae anicteric. Oropharynx pink and moist. Neck: Supple. Chest: Clear. Abdomen: She has good hemostasis at her abdominal surgical site. Extremities: Mild edema in the lower extremities. Otherwise, no acute findings on exam. Neurologic: Mild diffuse weakness in upper and lower extremities. 5/5 in terms of her strength, sen sation, stocking-glove loss. Note today, her urinalysis did show extreme turbidity, blood 3+, esterase 500, red blood cells greate r than 50, white blood cells 20 to 50, bacteria none seen, occasional budding yeast, trace protein. Rehab And Medical Assessment And Plan: Ms. Keller is an 89-year-old patient admitted to the inpatient rehabilitation unit with impairment category 20, miscellaneous. Her impairment group code is debili ty, noncardiac, nonpulmonary. Etiologic diagnosis, acute small bowel obstruction, and the small trav l obstruction is now resolving following exploratory laparotomy, laparotomy with adhesiolysis. Her c omorbidities are renal insufficiency, some altered mental status, decreased mobility, decreased physi kathy functioning, diabetes mellitus, hematuria, hypertension, metabolic acidosis, resolving pleural ef fusion. Plan: 1.She will have physical, occupational, and speech therapy for 3.5 hours, 5 of 7 days. 2.We will continue with hydration and fluid management as noted. IV fluids needed will be given. L asix continued at 20 mg daily, gabapentin for neuropathic pain 300 mg at bedtime, Cozaar for blood pr essure management, melatonin for insomnia, Cardizem for heart rate control, Lipitor for dyslipidemia, aspirin for stroke risk reduction, Eliquis for DVT risk reduction. She is continuing on the Augment in from 07/27/2024 to 08/01/2024 at a twice a day dosage. She has [place] 5/325 for moderate to severe pain and regular Tylenol 5 mg for mild to moderate pain. Comorbidities That Are Impacting Rehabilitation: Currently, the potential for a repeat bowel obstruc tion is there. She is currently doing very well. She is to hydrate well. If need be, IV fluids courtney l be given. Stool softeners as appropriate. Also risk of pneumonia and aspiration. She will have i ncentive spirometry to help reduce that risk. Mobilization done. She has DVT risk reduction on boar d. She has pain which will be managed by multiple modalities as noted and comorbidities again blood pressure managed on an ongoing basis. Sliding scale insulin if appropriate and insomnia which may oc cur is addressed with melatonin and trazodone if appropriate. Rehab Specific Plan: Ms. Keller will have physical, occupational, and if need be speech therapy for u p to 3.5 hours, 5 of 7 days, to improve her ability to transfer from bed to chair to toilet to shower and perform toileting and showering. Physical Therapy will help with mobilization of more than hous ehold distances, ideally through 300 or 400 feet, up and down 10 steps and mobilize a wheelchair 500 feet or more and perform these activities independently as well as her safety awareness performed lionel ropriately, manage her activities of daily living and become independent again. Ms. Keller has a good understanding of the process of admission to the inpatient rehabilitation facili ty, how she will benefit from physical, occupational, and if need be speech therapy. She will have p hysical therapy as noted. In addition, she will have 24 hours a day, 7 days a week skilled rehabilit ation and nursing, daily physician evaluation and management, and social services designee evaluation and jair navarro for discharge planning, home equipment, and how to follow up with her therapy and physicians. In addition, if need be, Hospitalist Service and Surgical Service will be consulted. Barriers To Discharge: Currently, her barriers may be pain, may be the need for ongoing therapy if t he small bowel issue is not fully resolved. In addition, the potential for pneumonia is still presen t. She may require half-way or prolonged stay if she is not thriving. However, so far, she a ppears to be doing very well and those barriers are not apparent at this point. Length Of Stay: About 10 days. Disposition: Back home with independent living. She will have therapy depending on how she is doing , have perhaps outpatient and then followup of course with surgery as scheduled. Prognosis: Good. Code Status: Full code. Rehab Specific Goals: 1.Become independent with upper and lower body dressing and donning and doffing footwear. 2.Independently transfer from bed to chair to toilet. 3.Independently ambulate 250 feet with a rolling walker. 4.Independently propel a wheelchair 250 feet. 5.Independently go up and down 10 steps with bilateral handrails. 6.Independently perform cognitive functioning. The above goals were reviewed with Ms. Keller and she is in agreement. By signing this document, I acknowledge I personally performed a full physical examination on Ms. Albin braun no later than 24 hours after her admission to the inpatient rehabilitation facility and determined that she is able to tolerate the above course of treatment at an intensive level for reasonable purvi od of time. A detailed individualized plan of care for her will be completed by hospital day 4 based on the preadmission screen, history and physical, and therapy evaluations. SASKIA Voice ID: [id number]
[2024-07-28 05:57] LABS: Absolute Basophils 0.1 K/uL (0-0.5); Absolute Eosinophils 0.4 K/uL (0-0.5); Absolute Monocytes 0.5 K/uL (0.1-1.3); Absolute Neutrophil 5.9 K/uL (1.8-8.0); Basophils % 1.1 % (0-1.3); Eosinophils % 5.6 % (0-4.4); Hematocrit 31.5 % (36.0-45.0); Hemoglobin 10.3 g/dL (12.0-15.0); Lymphocytes % 12.6 % (15.3-44.8); MCH 29.1 pg (27.0-35.0); MCHC 32.7 g/dL (32.0-36.0); MCV 88.9 fL (80-100); MPV 10.9 fL (7.6-11.3); Monocytes % 6.2 % (3.3-12.3); Neutrophils % 74.5 % (41.7-73.7); Platelets 163 thou/uL (152-406); RBC Red Blood Cell Count 3.55 M/uL (3.86-4.86); Red Cell Distribution Width 14.8 % (12.1-15.2)
[2024-07-28 06:32] LABS: Albumin 2.1 g/dL (3.4-5.0); Anion Gap 5.1 mEq/L (5.0-15.0); Magnesium 1.8 mg/dL (1.6-2.4); Potassium 4.1 mEq/L (3.5-5.1)
[2024-07-28] MEDS: ASPIRIN 81 MG CHEWABLE TABLET PO SCH (09:31)
[2024-07-28] MEDS: DILTIAZEM HCL 180 MG SR CAP PO SCH (09:31)
[2024-07-28] MEDS: CITALOPRAM 10 MG TABLET PO SCH (09:33)
[2024-07-28] MEDS: FUROSEMIDE 20 MG TABLET PO SCH (09:34)
--- NOTE | 2024-07-29 01:49 | PN ---
Date of Progress Note: 07/21/2024 Time Of Service: 1:25 p.m. Subjective: Ms. Keller is doing very well, mobilizing in the gym area. She has no new complaints. B owel movements are now doing great. She is eating well and is happy so far with therapy. Objective: No fevers, chills, nausea, vomiting. No abdominal pain, discomfort. No significant myal gias, arthralgias, rash. Physical Examination: Vital Signs: Blood pressure 125/58, pulse 80, respiratory rate of 16, temperature 97.3, oxygen satur ation 92%. General: Again, Ms. Keller is resting comfortably. She is in no acute distress. HEENT: She is normocephalic, atraumatic. Sclerae anicteric. Oropharynx moist. Neck: Supple. Chest: Clear. Extremities: Mild edema in lower extremities. Abdomen: Good abdomen sound. Laboratory Studies: White blood cell count 8.0, hemoglobin 10.3, platelets 163. Sodium 140, potassi um 4.1, chloride 108, carbon dioxide 31, BUN 22, creatinine 0.62, glucose range 114 to 124, hemoglobi n A1c is 5.2. Blood sugar checks will be halted. She is doing well in terms of that. No diabetes. Calcium 8.3, magnesium 1.8, albumin 2.1, prealbumin 18.0. Her urinalysis from the did show 500 esterase, greater than 50 red blood cells, 20 to 50 white blood cells, occasional budding yeast, tra ce protein, 3+ blood, extreme turbidity. She has, however, no growth on her urine cultures. X-ray/imaging: No new x-rays or imaging. Medications: Tylenol Extra Strength 500 mg every 6 hours as needed for pain, [place] 5/325 every 6 alpesh rs as needed, Augmentin 875 mg twice daily from 07/27/2024 to 08/01/2024, Eliquis 2.5 mg twice daily, aspirin 81 mg daily, Lipitor 20 mg at bedtime, [place] 25 mg at bedtime, Celexa 10 mg daily, diltia zem 80 mg daily, Lasix 20 mg daily, gabapentin 300 mg at bedtime, Cozaar 50 mg daily, and melatonin 3 mg at bedtime. Progress Made With Physical And Occupational Therapy: With physical therapy today, she was able to p erform multiple pvxauh-[id number]-fnz transfers with standby assistance, multiple [id number]-vq-[id number] transfers also done with standby assistance, and multiple toilet transfers done with contact guard assistance. She ambulated with a rolling walker 375 feet, 150 feet, and 500 feet with contact guard assistance. She was able to go up and down 15 steps with bilateral handrails with standby assistance and mobilized a wheelchair 200 feet independently. With her occupational therapy, she was at supervision of dora hooker, ambulated from room to bathroom with a rolling walker, supervision. Independent with oral hygiene, supervision for toileting, and she did do shoulder exercises with 2-pound Thera ball and 2 x 6 sets of exercises to strengthen the deltoid and to improve her endurance. Assessment And Plan: Ms. Keller is an 89-year-old patient in rehabilitation unit with acute small bow el obstruction, status post exploratory lap with improvement, and no evidence of any ongoing bowel ob struction. She still has decreased mobility, decreased physical functioning, but is improving. She has insomnia addressed with melatonin, hypertension addressed with Cozaar and diltiazem. She has Lip itor for dyslipidemia, Eliquis for DVT prophylaxis, aspirin for stroke risk reduction, Tylenol for pa in, Celexa for depression, Lasix for fluid management, gabapentin for neuropathic pain. She will hav e continued physical and occupational therapy 3 hours a day, 5 of 7 days. NESHA/GIANCARLO Voice ID: [id number] Report ID: [id number]
--- NOTE | 2024-07-29 14:00 | P.RH.PN ---
Estimated Length of Stay: 9 Expected Discharge Date: 08/02/24 Discharge Disposition Plan: Home Family Support: Yes C.O.D. Audit Clerk Goal: Mobility, Transfers, Self Care Vital Signs: Last Vital Signs Temp 98.2 F 07/29/24 07:00 Pulse 78 07/29/24 08:33 Resp 18 07/29/24 07:00 BP 165/74 H 07/29/24 08:33 Pulse Ox 97 07/29/24 07:00 Laboratory: Laboratory Last Values WBC 8.00 thou/uL (4.3-10.9) 07/28/24 05:20 RBC 3.55 M/uL (3.86-4.86) L 07/28/24 05:20 Hgb 10.3 g/dL (12.0-15.0) L 07/28/24 05:20 Hct 31.5 % (36.0-45.0) L 07/28/24 05:20 MCV 88.9 fL (80-100) 07/28/24 05:20 MCH 29.1 pg (27.0-35.0) 07/28/24 05:20 MCHC 32.7 g/dL (32.0-36.0) 07/28/24 05:20 RDW 14.8 % (12.1-15.2) 07/28/24 05:20 Plt Count 163 thou/uL (152-406) 07/28/24 05:20 MPV 10.9 fL (7.6-11.3) 07/28/24 05:20 Neutrophils % 74.5 % (41.7-73.7) H 07/28/24 05:20 Lymphocytes % 12.6 % (15.3-44.8) L 07/28/24 05:20 Monocytes % 6.2 % (3.3-12.3) 07/28/24 05:20 Eosinophils % 5.6 % (0-4.4) H 07/28/24 05:20 Basophils % 1.1 % (0-1.3) 07/28/24 05:20 Absolute Neutrophils 5.9 K/uL (1.8-8.0) 07/28/24 05:20 Absolute Lymphocytes 1.0 K/uL (0.7-4.9) 07/28/24 05:20 Absolute Monocytes 0.5 K/uL (0.1-1.3) 07/28/24 05:20 Absolute Eosinophils 0.4 K/uL (0-0.5) 07/28/24 05:20 Absolute Basophils 0.1 K/uL (0-0.5) 07/28/24 05:20 Sodium 140 mEq/L (136-145) 07/28/24 05:20 Potassium 4.1 mEq/L (3.5-5.1) 07/28/24 05:20 Chloride 108 mEq/L (98-107) H 07/28/24 05:20 Carbon Dioxide 31 mEq/L (21-32) 07/28/24 05:20 Anion Gap 5.1 mEq/L (5.0-15.0) 07/28/24 05:20 BUN 22 mg/dL (7-18) H 07/28/24 05:20 Creatinine 0.62 mg/dL (0.55-1.02) 07/28/24 05:20 Est GFR (CKD-EPI) 85 ml/min (=/>90) L 07/28/24 05:20 Glucose 124 mg/dL (74-106) H 07/28/24 05:20 POC Glucose 118 mg/dL (65-120) 07/28/24 11:30 Hemoglobin A1c 5.2 % (4.2-6.3) 07/28/24 05:20 Calcium 8.3 mg/dL (8.5-10.1) L 07/28/24 05:20 Magnesium 1.8 mg/dL (1.6-2.4) 07/28/24 05:20 Albumin 2.1 g/dL (3.4-5.0) L 07/28/24 05:20 Prealbumin 18.0 mg/dL (20-40) L 07/28/24 05:20 Urine Color Yellow (Yellow) 07/27/24 13:15 Urine Clarity Extremely turbid (Clear) H 07/27/24 13:15 Urine pH 6.0 (5.0-7.0) 07/27/24 13:15 Ur Specific [place] 1.015 (1.005-1.030) 07/27/24 13:15 Glucose (UA)(Auto) Negative (Negative) 07/27/24 13:15 Urine Ketones Negative (Negative) 07/27/24 13:15 Urine Blood 3+ (Negative) H 07/27/24 13:15 Urine Nitrite Negative (Negative) 07/27/24 13:15 Urine Bilirubin Negative (Negative) 07/27/24 13:15 Urine Urobilinogen Normal (Normal) 07/27/24 13:15 Ur Leukocyte Esterase 500 Katherine/uL (Negative) H 07/27/24 13:15 Urine RBC >50 /HPF (None Seen) H 07/27/24 13:15 Urine WBC 20-50 /HPF (<5) H 07/27/24 13:15 Urine WBC Clumps Rare /HPF (None Seen) 07/27/24 13:15 Ur Squamous Epith Cells 10-20 /HPF (None Seen) 07/27/24 13:15 Urine Bacteria None seen /HPF (<20) 07/27/24 13:15 Urine Mucus Slight /HPF (None Seen) 07/27/24 13:15 Urine Yeast (Budding) Occasional /HPF (None Seen) H 07/27/24 13:15 Urine Culture Reflexed Reflexed 07/27/24 13:15 Urine Total Protein Trace (Negative) H 07/27/24 13:15 Weight: 122 lb Wound Present: No Closed Surgical Incision Present: Yes Negative Pressure Wound Therapy Present: No Physician Update: Labs reviewed and are stable. Now min assist walking multiple 500' labs up and down 15 steps with SBA. Met 2/5 STG with OT. At supervision with most ADLs. Summary: Patient's care plan and director long term care goals have been reviewed and revised as necessary. Please see the Rehabilitation Signature page for all necessary signatures.
[2024-07-29] MEDS: ENSURE HIGH PROTEIN 237 ML CAN PO SCH (19:27)
[2024-07-30] MEDS: Mupirocin NASAL 2 APPL/1 GM TUBE NAS SCH (11:10)
[2024-07-31] MEDS: CRANBERRY FRUIT EXTRACT 425 MG CAPSULE PO SCH (16:59)
[2024-08-01] MEDS: Mupirocin NASAL 2 APPL/1 GM TUBE NAS SCH (11:06)
--- NOTE | 2024-08-02 02:26 | PN ---
Date of Progress Note: 08/01/2024 Time Of Service: 1:20 p.m. Subjective: Ms. Keller is doing very well, resting in her room. Has no new complaints. She is mobil izing well and happy with therapy. Objective: She denies any fevers, chills, nausea, vomiting. No myalgias or arthralgias. Physical Examination: Vital Signs: Blood pressure 125/58, pulse 75, respiratory rate 16, temperature 97.9, oxygen saturati on 96% to 98%. General: Ms. Keller is doing well. HEENT: She is normocephalic, atraumatic. Sclerae anicteric. Oropharynx pink and moist. Neck: Supple. Chest: Clear. Abdomen: She has good bowel movements now. No more evidence of any bowel obstruction. Laboratory Studies: No new laboratory studies. X-ray/imaging: No new x-rays or imaging. Medications: She does have nasal spray added, Bactroban. Otherwise unchanged. Progress Made With Physical And Occupational Therapy: With physical therapy today, she did complete gait training for 150 feet with a rolling walker, standby assistance. She was noted to be walking ve ry fast. Bed mobility completed with supervision to modified independence. She also ambulated anoth er 500 feet and 350 feet independently and then up and down 15 steps with bilateral handrails and doi ng so independently. With occupational therapy, independent with bed mobilization, swg-tj-kkecy carbajal sfers independent, toilet hygiene independent, doing very well. Assessment And Plan: Ms. Keller is an 89-year-old patient admitted to the rehabilitation unit with sm all bowel obstruction that has been resolved. She has now much improved, decrease in mobility and de creased physical functioning and is doing excellent from that standpoint. She has hypertension addre ssed with diltiazem and DVT risk addressed with Eliquis. She has [place] for pain, Lipitor for dyslipi demia, depression addressed with Celexa, Lasix for fluid management, and gabapentin for neuropathic p ain. She has Cozaar 50 mg at bedtime, melatonin 3 mg at bedtime, and again diltiazem 180 mg daily. She will continue with physical and occupational therapy 3 hours a day, 5/7 days. LB/MODL Voice ID: [id number] Report ID: [id number]
[2024-08-02 05:35] LABS: Absolute Basophils 0.1 K/uL (0-0.5); Absolute Eosinophils 0.2 K/uL (0-0.5); Absolute Lymphocytes (CBC) 0.7 K/uL (0.7-4.9); Absolute Monocytes 0.7 K/uL (0.1-1.3); Absolute Neutrophil 4.3 K/uL (1.8-8.0); Basophils % 1.2 % (0-1.3); Eosinophils % 2.7 % (0-4.4); Hematocrit 29.5 % (36.0-45.0); Hemoglobin 9.6 g/dL (12.0-15.0); Lymphocytes % 11.6 % (15.3-44.8); MCHC 32.7 g/dL (32.0-36.0); MCV 88.6 fL (80-100); MPV 10.5 fL (7.6-11.3); Monocytes % 11.2 % (3.3-12.3); Neutrophils % 73.3 % (41.7-73.7); Platelets 170 thou/uL (152-406); RBC Red Blood Cell Count 3.33 M/uL (3.86-4.86); Red Cell Distribution Width 15.1 % (12.1-15.2)
[2024-08-02 06:02] LABS: Albumin 2.3 g/dL (3.4-5.0); Anion Gap 6.3 mEq/L (5.0-15.0); Magnesium 1.4 mg/dL (1.6-2.4); Potassium 3.3 mEq/L (3.5-5.1); Prealbumin 15.6 mg/dL (20-40)
[2024-08-02] MEDS: HEPARIN 500 UNIT/5 ML SYR IV PRN (14:24)
[2024-08-02] MEDS: POTASSIUM CL SA 10 MEQ TAB PO SCH (19:35)
--- NOTE | 2024-08-02 21:47 | PN ---
Date of Progress Note: 08/02/2024 Time Of Service: 1:35 p.m. Subjective: Ms. Keller is resting in bed. She is happy with therapy. She is having daily bowel move ments. No evidence of any ongoing small bowel obstruction, which is the reason for admission to the inpatient rehabilitation unit. Objective: No fevers, chills, nausea, vomiting. No myalgias, arthralgias. No rash. Again, no cons tipation. Physical Examination: Vital Signs: Blood pressure 126/62, pulse 72, respiratory rate of 16, temperature 97.8, oxygen satur ation 93%. General: Ms. Keller is resting comfortably in bed. HEENT: She is normocephalic, atraumatic. Sclerae anicteric. Oropharynx pink, moist. Neck: Supple. Chest: Clear. Extremities: No clubbing, cyanosis, or edema. Note, she is somewhat hard of hearing and louder voice need to be used. Laboratory Studies: White blood cell count 5.8, hemoglobin 9.6, platelets 170. Sodium 140; potassiu m 3.3, she has some potassium replacement on board; chloride 105; carbon dioxide 32; BUN 26; creatini ne 0.80; glucose 124. Calcium 9.3, magnesium 1.4, albumin 2.3, prealbumin 15.6. X-ray/imaging: No new x-rays or imaging. Medications: As noted, she did have potassium on board. She will have potassium 10 mEq twice daily. She does have Port-A-Cath that was removed. Today, she did have also Bactroban nasal spray, applie d from 08/01 to 08/03 one spray twice daily. Progress Made With Physical And Occupational Therapy: With her physical therapy today, obwnlr-[id number] transfers done independently. Multiple iir-xn-dtowp transfers done independently. She ambulated 60 0 feet, 250 feet, and 400 feet independently with a rolling walker. She used a quad cane to cover 15 0 feet with minimum assistance. She also ambulated without an assistive device, 100 feet with contac t guard assistance. She was able to go up and down 15 steps with bilateral handrails independently w ith 2 trials. With occupational therapy today, she did independent bed mobilization, room to shower to room with a rolling walker, did that independently. Independent with bathing, upper and lower bod y dressing, donning and doffing of footwear after completing a shower. She did very well. Ready for discharge home. Assessment: Ms. Keller is an 89-year-old patient who is doing excellent. She does have small bowel o bstruction that has been resolved. She has decreased mobility and decreased physical function that i s improving very well. She does have deep venous thrombosis risk and is mitigated by Eliquis 2.5 mg twice daily. Stroke risk addressed with aspirin 81 mg daily, Lipitor for dyslipidemia. She has low potassium, hypokalemia, addressed with potassium 10 mEq twice daily, that is likely related to Lasix, which she again has 20 mg daily for fluid management. Gabapentin for neuropathic pain. She has a P ort-A-Cath that has been addressed by removal today. She is on Cozaar for blood pressure management. Melatonin for insomnia. Ensure High Protein for her malnutrition. Plan: She will continue with physical and occupational therapy 3 hours a day. Continue with comorbi d condition medications, which have been noted. She does have potassium replacement and recheck of p otassium will be done prior to discharge. LB/MODL Voice ID: [id number] Report ID: [id number]
[2024-08-03] MEDS: POTASSIUM CL SA 10 MEQ TAB PO ONE (09:47)
[2024-08-03] MEDS: Magnesium Sulfate 2gm IVPB 2 G/50 ML BAG IV ONE (10:39)
[2024-08-03] MEDS: MAGNESIUM OXIDE 400 MG TAB PO SCH (19:42)
--- NOTE | 2024-08-03 20:41 | PN ---
Date of Progress Note: 08/03/2024 Time Of Service: 1:30 p.m. Subjective: Ms. Keller is sitting in the room, eating cookie. She is very happy with her therapy. S he is having bowel movements daily. No more evidence of small-bowel obstruction, mobilizations well. No other complaints. Objective: No fevers, chills, nausea, vomiting, myalgias, arthralgias. No constipation. Physical Examination: Vital Signs: Blood pressure is 112/57, pulse 73, respiratory rate 16, temperature 98.0, O2 saturatio n 95%.. General: Ms. Keller sitting in the bed. HEENT: She is normocephalic, atraumatic. Sclerae anicteric. Oropharynx moist. Neck: Supple. Chest: Clear. Heart: Regular. Extremities: No significant edema, cyanosis, or clubbing. Laboratory Studies: Her laboratory studies did show a low magnesium of 1.4. She did receive 2 g of magnesium. Again, the potassium was down to 3.3. This is on yesterday and she received potassium re placement 40 mEq x1 and then her Lasix again was decreased. X-ray/imaging: No new x-rays or imaging. Medications: Lasix was cut back to 10 mg daily from 20 mg as she has had some low potassium and labo ratory values. Also, potassium replacement is on board. She is receiving 10 mEq of potassium daily. Progress Made With Physical, Occupational, And Speech Therapy: With physical therapy today, she perf orms supine sit transfers independently, multiple sit to stand transfers done independently, stand-to -pivot transfers done independently. She ambulated 600 feet, 250 feet and 500 feet independently and mobilized a wheelchair 400 feet independently. She was up and down 20 steps with bilateral handrail s twice independently. With occupational therapy, independent with bed mobilization, lnd-tc-[id number] tr ansfers, going from room to gym independently, groomed, and toilet and back independent, no assistive device. Assessment: Ms. Keller is an 89-year-old patient in rehabilitation unit with acute small bowel obstru ction that has been resolving. She is doing very well. Currently, she has hypomagnesemia, hypokalem ia that is being addressed. She has decreased mobility, decreased physical function that has improve d significantly. In addition, pain is addressed with [place], DVT risk, addressed with Eliquis, aspiri n for stroke risk reduction, Lipitor for dyslipidemia and Celexa for depression, diltiazem for heart rate control. Lasix has been cut back to 10 mg daily. Gabapentin continue 3 mg at bedtime. She has the catheter removed and it is noted that was on yesterday. She has Cozaar 50 mg at bedtime for blo od pressure control, melatonin for insomnia, and again the potassium as noted with Ensure for her nut ritional status. She will continue with physical and occupational therapy 3 hours a day, 5 of 7 days and for discharge. LB/MODFermin Voice ID: [id number] Report ID: [id number]
[2024-08-04 06:09] LABS: Anion Gap 7.3 mEq/L (5.0-15.0); Potassium 4.3 mEq/L (3.5-5.1)
[2024-08-04 07:41] VITALS: TEMP 97.9
[2024-08-04] MEDS: FUROSEMIDE 20 MG TABLET PO SCH (08:55)
[2024-08-04 10:14] VITALS: BP 124/60
[2024-08-04] MEDS: HEPARIN 500 UNIT/5 ML SYR IV ONE (11:19)
[2024-08-04] MEDS: Mupirocin NASAL 2 APPL/1 GM TUBE NAS ONE (11:46)
== END 2024-08-04 12:45 | disposition home or self-care (01) | DRG 948 ==
LOC: 5TH 11:25
PROVIDERS: ADMIT Psychiatry & Neurology Neurology with Special Qualifications in Child Neurology; ATTEND Psychiatry & Neurology Neurology with Special Qualifications in Child Neurology
DX: R53.81 Other malaise (principal); E87.20 Acidosis, unspecified; J90 Pleural effusion, not elsewhere classified; I50.30 Unspecified diastolic (congestive) heart failure; E46 Unspecified protein-calorie malnutrition; E83.42 Hypomagnesemia; E87.6 Hypokalemia; R41.82 Altered mental status, unspecified; E11.9 Type 2 diabetes mellitus without complications; G47.00 Insomnia, unspecified; R31.9 Hematuria, unspecified; I11.0 Hypertensive heart disease with heart failure; E78.5 Hyperlipidemia, unspecified; F32.A Depression, unspecified; Z87.891 Personal history of nicotine dependence; Z85.3 Personal history of malignant neoplasm of breast; Z68.22 Body mass index [BMI] 22.0-22.9, adult
CPT/HCPCS: 36415; 80048; 81001; 82040; 82947; 83036; 83735; 84134; 85025; 87086; 87088; 97110; 97116; 97163; 97165; 97530; 97542; J1642; J3475

== ENCOUNTER 2024-08-08 13:59 | Emergency (ER) | payer OTHER ==
--- NOTE | 2024-08-08 14:55 | RAD REPORT ---
EXAMINATION: CT HEAD WITHOUT CONTRAST CT CERVICAL SPINE WITHOUT CONTRAST CLINICAL INDICATION: Syncope. Head and neck injury status post fall. Head and neck pain TECHNIQUE: Axial CT images from the skull base to the vertex without intravenous contrast. Axial CT i mages through the cervical spine were obtained without intravenous contrast. Sagittal and coronal reformatted images were created from the data set. Coronal and sagittal reformatted images were creat ed from the data set. One or more of the following dose reduction techniques were used: Automated exposure control, adjustment of the mA and/or kV according to patient size, and/or iterative reconstr uction. Unless otherwise specified, incidental findings do not require dedicated imaging follow-up. [id number]. Comparison: February 2024 FINDINGS: An intracranial bleed is not seen. Ventricles are normal in caliber. No significant hypodensity within the brain No extra-axial fluid collection. Fluid within the sphenoid sinus may indicate acute sinusitis. No fracture or dislocation is seen involving the cervical spine. IMPRESSION: No acute intracranial abnormality noted A cervical fracture is not seen. If the patient continues to have symptoms to suggest acute CLIENT SERVICE COORDINATOR/spinal pathology then MRI would be rec ommended
--- NOTE | 2024-08-08 15:09 | RAD REPORT ---
EXAM: CT CHEST, ABDOMEN AND PELVIS WITHOUT CONTRAST CLINICAL INDICATION: Chest and abdominal pain status post fall TECHNIQUE: CT chest, abdomen and pelvis was performed, without IV contrast, as per department protoco l. Axial, sagittal and coronal reconstructions were obtained. One or more of the following dose reduction techniques were used: Automated exposure control, adjustment of the mA and/or kV according to the patient size, and/or iterative reconstruction. Unless otherwise specified, incidental findings do not require dedicated imaging follow-up. The lack of IV and oral contrast limits evaluation of the mediastinum, jamia, vessels, organs and trav l. COMPARISON: 2021 and 2023 FINDINGS: A pulmonary contusion is not present. 1.5 cm nodular opacity has developed within the left lower lobe since July 18, 2024. Several tree- in-bud opacities left lower lobe. Mild tree-in-bud opacities right lung. Mild additional chronic lung opacities. No mediastinal hematoma. Small right pleural effusion. Tiny left pleural effusion. No pericardial effusion. Large hiatal hernia. Liver, spleen, pancreas, adrenals kidneys and bladder do not demonstrate any acute traumatic injury. Hepatic and renal cysts unchanged. Small left adrenal nodule unchanged. Atherosclerosis. There is no evidence of diverticulitis Compression fractures T10, T11 and L1 vertebral bodies unchanged. Cement has been placed into the T11 fracture. IMPRESSION: No acute traumatic injury chest/abdomen nor pelvis seen Bilateral lung opacities probably infectious or inflammatory.
[2024-08-08 15:13] LABS: Absolute Basophils 0.1 K/uL (0-0.5); Absolute Lymphocytes (CBC) 0.6 K/uL (0.7-4.9); Absolute Monocytes 0.7 K/uL (0.1-1.3); Absolute Neutrophil 6.9 K/uL (1.8-8.0); Basophils % 0.8 % (0-1.3); Eosinophils % 0.4 % (0-4.4); Hematocrit 25.6 % (36.0-45.0); Hemoglobin 8.6 g/dL (12.0-15.0); Lymphocytes % 6.9 % (15.3-44.8); MCH 29.9 pg (27.0-35.0); MCHC 33.7 g/dL (32.0-36.0); MCV 88.9 fL (80-100); MPV 11.1 fL (7.6-11.3); Monocytes % 8.3 % (3.3-12.3); Neutrophils % 83.6 % (41.7-73.7); Nucleated Red Blood Cells % 0.1 % (0-0); Platelets 208 thou/uL (152-406); RBC Red Blood Cell Count 2.88 M/uL (3.86-4.86); Red Cell Distribution Width 16.4 % (12.1-15.2)
[2024-08-08 15:14] LABS: PT Prothrombin Time 15.1 SECONDS (9.4-12.5); Protime INR 1.36
[2024-08-08 15:30] LABS: Albumin 2.8 g/dL (3.4-5.0); Anion Gap 7.9 mEq/L (5.0-15.0); Bilirubin Direct 0.2 mg/dL (0-0.2); Bilirubin Indirect, Calculated 0.3 mg/dL (0.2-0.8); Bilirubin Total 0.5 mg/dL (0.2-1.0); Globulin 2.8 g/dL (2.3-3.5); Magnesium 1.8 mg/dL (1.6-2.4); Potassium 3.9 mEq/L (3.5-5.1); Protein, Total 5.6 g/dL (6.4-8.2); Troponin High Sensitivity 14.5 pg/mL (<58.9)
--- NOTE | 2024-08-08 15:32 | RAD REPORT ---
Procedure: Chest Single View HISTORY: Cough COMPARISON: July 24, 2024 FINDINGS: Right lung opacities have partially resolved. Patient's known left lower lobe pulmonary nodule not clearly visualized on this exam. Heart is mildly enlarged. Small right pleural effusion. Central venous catheter in place.
[2024-08-08 16:19] LABS: Specific Gravity 1.012 (1.005-1.030); Urine Bacteria <20 /HPF (<20); Urine Bilirubin NEGATIVE (Negative); Urine Blood 1+ (Negative); Urine Clarity Extremely Turbid (Clear); Urine Color Light-Yellow (Yellow); Urine Crystals Unidentified Few /HPF (None Seen); Urine Culture Reflex Order REFLEXED; Urine Glucose NEGATIVE (Negative); Urine Ketones NEGATIVE (Negative); Urine Microscopic Reflex YN ORDER UMIC; Urine Mucus Slight /HPF (None Seen); Urine Nitrite NEGATIVE (Negative); Urine Protein NEGATIVE (Negative); Urine Urobilinogen Normal (Normal); Urine WBC 20-50 /HPF (<5); Urine WBC Clump Rare /HPF (None Seen); Urine Yeast (Budding) Trace /HPF (None Seen); Urine pH 7.5 (5.0-7.0)
--- NOTE | 2024-08-08 17:29 | EDPHYS ---
Physician Documentation [facility] Name: Veronique Keller Age: 89 yrs Sex: Female : 1935 Arrival Date: 08/08/2024 Time: 13:59 Bed 16 Private MD: ED Physician Jerzy Smiley HPI: 08/08 17:18 This 89 yrs old Female presents to ER via EMS with complaints of Syncope, aleida Head Injury With LOC-Adult. 17:18 The patient has experienced near-syncope, almost passed out, felt dizzy. Onset: The aleida symptoms/episode began/occurred this morning. Duration: The patient has had multiple episodes, that last 20 second(s). Context: the episode(s) was witnessed, by no one, occurred at home, occurred while the patient was. Associated injury: The patient did not suffer any apparent associated injury. Associated signs and symptoms: Pertinent positives: dizziness, weakness. Current symptoms: Currently, the patient is not experiencing any symptoms, the patient feels back to baseline. The patient has experienced similar episodes in the past, a few times. Historical: - Allergies: 14:08 No Known Allergies; kc6 - PMHx: 14:08 Hypertensive disorder; Hypercholesterolemia; BREAST CA; SBO (BREAST CA); kc6 - PSHx: 14:08 B mastectomy; kc6 - Immunization history:: Adult Immunizations up to date. - Infectious Disease History:: Denies. - Social history:: Smoking status: Patient/guardian denies using tobacco, the patient reports quitting approximately 13 years ago. - Family history:: not pertinent. ROS: 17:20 Constitutional: Negative for fever, chills, and weight loss, Eyes: Negative for injury, aleida pain, redness, and discharge, ENT: Negative for injury, pain, and discharge, Neck: Negative for injury, pain, and swelling, Cardiovascular: Negative for chest pain, palpitations, and edema, Respiratory: Negative for shortness of breath, cough, wheezing, and pleuritic chest pain, Back: Negative for injury and pain, MS/Extremity: Negative for injury and deformity, Skin: Negative for injury, rash, and discoloration, Neuro: Negative for headache, weakness, numbness, tingling, and seizure, Psych: Negative for depression, anxiety, suicide ideation, homicidal ideation, and hallucinations, Allergy/Immunology: Negative for hives, rash, and allergies, Endocrine: Negative for neck swelling, polydipsia, polyuria, polyphagia, and marked weight changes, Hematologic/Lymphatic: Negative for swollen nodes, abnormal bleeding, and unusual bruising, 17:20 Abdomen/GI: Positive for black/tarry stool, 17:20 : Positive for urinary frequency, small amounts, 17:20 Skin: Positive for pallor, 17:20 Neuro: Positive for dizziness, near syncope, weakness, Exam: 17:21 Constitutional: This is a well developed, well nourished patient who is awake, alert, aleida and in no acute distress. Head/Face: Normocephalic, atraumatic. Eyes: Pupils equal round and reactive to light, extra-ocular motions intact. Lids and lashes normal. Conjunctiva and sclera are non-icteric and not injected. Cornea within normal limits. Periorbital areas with no swelling, redness, or edema. ENT: Nares patent. No nasal discharge, no septal abnormalities noted. Tympanic membranes are normal and external auditory canals are clear. Oropharynx with no redness, swelling, or masses, exudates, or evidence of obstruction, uvula midline. Mucous membranes moist. Neck: Trachea midline, no thyromegaly or masses palpated, and no cervical lymphadenopathy. Supple, full range of motion without nuchal rigidity, or vertebral point tenderness. No Meningismus. Chest/axilla: Normal chest wall appearance and motion. Nontender with no deformity. No lesions are appreciated. Respiratory: Lungs have equal breath sounds bilaterally, clear to auscultation and percussion. No rales, rhonchi or wheezes noted. No increased work of breathing, no retractions or nasal flaring. Back: No spinal tenderness. No costovertebral tenderness. Full range of motion. Female : Normal external genitalia. MS/ Extremity: Pulses equal, no cyanosis. Neurovascular intact. Full, normal range of motion., bilateral aka Neuro: Awake and alert, GCS 15, oriented to person, place, time, and situation. Cranial nerves II-XII grossly intact. Motor strength 5/5 in all extremities. Sensory grossly intact. Cerebellar exam normal. Normal gait. Psych: Awake, alert, with orientation to person, place and time. Behavior, mood, and affect are within normal limits. 17:21 Cardiovascular: Rate: tachycardic, actual rate is 63 bpm, Rhythm: regular, Pulses: Pulses are 4+ in bilateral radial, brachial, femoral, popliteal, posterior tibial and and dorsalis pedis arteries.. Heart sounds: murmur, systolic, grade 3 over 6, heard in the aortic area, rub, not appreciated, gallop, S3 noted, Edema: is not appreciated, JVD: is not appreciated, 17:21 ECG was reviewed by the Attending Physician. 17:25 Abdomen/GI: Rectal exam: rectal tone normal, hemorrhoid(s), are not appreciated, mass, aleida is not appreciated, swelling, is not appreciated, tenderness, is not appreciated, fecal impaction, is not appreciated, melena, no gross blood, the exam is chaperoned by a family member, 17:25 Musculoskeletal/extremity: DVT Exam: No signs of deep vein thrombosis. no pain, no swelling, no tenderness, negative Homans' sign noted on exam, no appreciated bluish discoloration, no erythema, no increased warmth, Vital Signs: 14:06 BP 111 / 65; Pulse 63; Resp 16 S; Temp 97.9(O); Pulse Ox 100% on R/A; Weight 56.25 kg kc6 (R); Height 5 ft. 2 in. (R); 15:31 BP 126 / 55; Pulse 63; Resp 16 S; Pulse Ox 98% on R/A; kc6 16:39 BP 94 / 74; Pulse 69; Resp 16 S; Pulse Ox 100% on R/A; kc6 17:57 BP 120 / 58; Pulse 68; Resp 17 S; Pulse Ox 99% on R/A; kc6 19:08 BP 124 / 55; Pulse 64; Resp 16 S; Pulse Ox 98% on R/A; kc6 20:00 BP 122 / 54; Pulse 67; Resp 18 S; Pulse Ox 99% on R/A; br2 21:00 BP 117 / 53; Pulse 71; Resp 18; Pulse Ox 99% ; br2 14:06 Body Mass Index 22.68 (56.25 kg, 157.48 cm) kc6 NIH Stroke Scale Scores: 17:25 NIHSS Score: 0 aleida MDM: 14:06 Medical Screening Exam initiated aleida 17:26 Differential Diagnosis: aortic aneurysm, cardiac arrhythmia, cerebrovascular accident, aleida GI bleed, idiopathic syncope, seizure, sepsis, transient ischemic attack, vasovagal episode. Data reviewed: vital signs, nurses notes, EMS record, lab test result(s), EKG, radiologic studies, CT scan, plain films. Consideration of Admission/Observation Escalation of care including admission/observation considered. I considered the following discharge prescriptions or medication management in the emergency department Medications were administered in the Emergency Department. See MAR. Independent interpretation of the following test(s) in the Emergency Department EKG: See my EKG interpretation above. Test considered but Not performed: Other Details no 2d echo. Historians other than the Patient: Family Member: granddaughter. Care significantly affected by the following chronic conditions: Hypertension, Chronic Kidney Disease, bowel obstruction. 08/08 14:08 Order name: Basic Metabolic Panel; Complete Time: 17:06 [facility] 08/08 14:08 Order name: CBC with Diff; Complete Time: 17:06 [facility] 08/08 14:08 Order name: LFT's; Complete Time: 17:06 [facility] 08/08 14:08 Order name: Magnesium; Complete Time: 17:06 [facility] 08/08 14:08 Order name: NT PRO-BNP; Complete Time: 17:06 [facility] 08/08 14:08 Order name: PT-INR; Complete Time: 17:06 [facility] 08/08 14:08 Order name: Troponin HS; Complete Time: 17:06 [facility] 08/08 14:08 Order name: Lipase; Complete Time: 17:06 [facility] 08/08 14:08 Order name: Urinalysis w/ reflexes; Complete Time: 17:06 [facility] 08/08 16:23 Order name: Urine Culture [facility] 08/08 17:08 Order name: Blood Culture Adult (2) [facility] 08/08 17:18 Order name: Lactate w/ 2H reflex if indic. [facility] 08/08 14:08 Order name: XRAY Chest (1 view); Complete Time: 17:06 [facility] 08/08 14:28 Order name: Head C Spine Mpr Wo Con; Complete Time: 17:06 [facility] 08/08 14:30 Order name: Chest Abd Pelvis Wo Con; Complete Time: 17:06 [facility] 08/08 14:08 Order name: EKG; Complete Time: 14:08 [facility] 08/08 14:08 Order name: Cardiac monitoring; Complete Time: 14:13 [facility] 08/08 14:08 Order name: EKG - Nurse/Tech; Complete Time: 14:41 [facility] 08/08 14:08 Order name: IV Saline Lock; Complete Time: 15:03 [facility] 08/08 14:08 Order name: Labs collected and sent; Complete Time: 15:03 [facility] 08/08 14:08 Order name: O2 Per Protocol; Complete Time: 14:13 [facility] 08/08 14:08 Order name: O2 Sat Monitoring; Complete Time: 14:13 [facility] EC:21 Rate is 63 beats/min. Rhythm is regular. QRS Beemer is Normal. WI interval is normal. T aleida waves are Normal. Clinical impression: Abnormal EKG without significant change and No evidence of ischemia. Interpreted by me. Reviewed by me. Administered Medications: 15:03 Drug: NS 0.9% IV 500 ml 500 ml IV at 1 bolus once; to be given as a bolus over 30 kc6 minutes Volume: 500 ml; Route: IV; Rate: 1 bolus; Site: PICC; 16:03 Follow up: Response: No adverse reaction; IV Status: Completed infusion; IV Intake: kc6 500ml 18:21 Drug: Pantoprazole IVP 80 mg IVP once Route: IVP; Site: Port-a-cath; 6 19:00 Follow up: Response: No adverse reaction kc6 18:21 Drug: NS 0.9% IV (30 ml/kg) 30 ml/kg IV at bolus once; Sepsis Protocol; to be given as kc6 a bolus over 90 minutes Route: IV; Rate: bolus; Site: Port-a-cath; 18:21 Drug: Ondansetron IVP 4 mg IVP once; over 2 minutes Route: IVP; Site: Port-a-cath; kc6 19:00 Follow up: Response: No adverse reaction kc6 18:22 Drug: levofloxacin IVPB 500 mg 100 ml IVPB once over 60 mins Volume: 100 ml; Route: kc6 IVPB; Infused Over: 60 mins; Site: Port-a-cath; 18:22 Drug: fentaNYL (PF) IVP 25 mcg IVP once Route: IVP; Site: Port-a-cath; kc6 19:00 Follow up: Response: No adverse reaction; Pain is decreased; RASS: Alert and Calm (0) kc6 19:59 Drug: Pantoprazole IV 8 mg/hr IV at 25 ml/hr continuous; (Standard dilution is 80 mg in br2 250 mL NS) Route: IV; Rate: 25 ml/hr; Site: Port-a-cath; 22:21 Drug: fentaNYL (PF) IVP 25 mcg IVP once Route: IVP; Site: Port-a-cath; br2 Disposition Summary: 08/08/24 17:29 Transfer Ordered Notes: Transfer Location: [facility] aleida Reason: Higher level of care aleida Condition: Fair aleida Problem: new aleida Symptoms: have improved aleida Accepting Physician: to [facility](08/08/24 23:29) br2 Diagnosis - Pneumonia due to other specified bacteria - bilateral aleida - Anemia, unspecified aleida - GI Bleed/ Gastrointestinal hemorrhage, unspecified aleida - Repeated falls aleida - Syncope Near aleida - Acute cystitis with hematuria aleida - longterm (current) use of anticoagulants aleida Forms: - Medication Reconciliation Form aleida - SBAR form aleida NIH Stroke Scale - NIH Stroke Score Date: 08/08/2024 Time: 17:25 Total Score = 0 10. Dysarthria (speech clarity - read or repeat words) - 0(Normal) 11. Extinction and Inattention (visual/tactile/auditory/spatial/personal) - 0(No abnormality) 1a. Level of Consciousness (LOC) - 0(Alert) 1b. Level of Consciousness (LOC) (Month \T\ Age) - 0(Both) 1c. LOC Commands (Open \T\ Closes Eyes/Pickle Pumper) - 0(Both) 2. Best Gaze (Lateral Gaze Paresis) - 0(Normal) 3. Visual Field Loss - 0(No visual loss) 4. Facial Palsy - 0(Normal) 5a. Left Arm: Motor (10-second hold) - 0(No drift) 5b. Right Arm: Motor (10-second hold) - 0(No drift) 6a. Left Leg: Motor (5-second hold - always test supine) - 0(No drift) 6b. Right Leg: Motor (5-second hold - always test supine) - 0(No drift) 7. Limb Ataxia (finger/nose \T\ heel/portillo - test with eyes open) - 0(Absent) 8. Sensory Loss (pinprick arms/legs/face) - 0(Normal) 9. Best Language: Aphasia (description/naming/reading) - 0(No aphasia) Initials: aleida Signatures: Dispatcher [employer] ALYSAGA Jerzy Smiley MD MD cha Campbell, Kaitlyn RN RN kc6 Samira Simpson, RN RN br2 Corrections: (The following items were deleted from the chart) 14 14:08 Head C Spine Cap Wo Con+CT.RAD.BRZ ordered. EDMS EDMS 23: 17:29 to bereket up2
--- NOTE | 2024-08-08 17:29 | ER ---
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 reports hitting her head both times, had LOC, and takes Eliquis daily. pt states, 'I think I'm fainting because it comes on all of a sudden without warning.". Coronavirus screen: At this time, the client does not indicate any symptoms associated with coronavirus-19. Ebola Screen: No symptoms or risks identified at this time. Initial Sepsis Screen: Does the patient meet any 2 criteria? No. Patient's initial sepsis screen is negative. Does the patient have a suspected source of infection? No. Patient's initial sepsis screen is negative. Risk Assessment: Do you want to hurt yourself or someone else? Patient reports no desire to harm self or others. Onset of symptoms was August 08, 2024. 14:06 Method Of Arrival: EMS: [facility] kc6 14:06 Acuity: RAMEZ 3 kc6 Historical: - Allergies: 14:08 No Known Allergies; kc6 - PMHx: 14:08 Hypertensive disorder; Hypercholesterolemia; BREAST CA; SBO (BREAST CA); kc6 - PSHx: 14:08 B mastectomy; kc6 - Immunization history:: Adult Immunizations up to date. - Infectious Disease History:: Denies. - Social history:: Smoking status: Patient/guardian denies using tobacco, the patient reports quitting approximately 13 years ago. - Family history:: not pertinent. Screenin:09 [facility] ED Fall Risk Assessment (Adult) History of falling in the last 3 months, kc6 including since admission Yes- physiologic fall (2 pts) Confusion or Disorientation No (0 pts) Intoxicated or Sedated No (0 pts) Impaired Gait Yes (1 pt) Mobility Assist Device Used Yes (1 pt) Altered Elimination No (0 pt) Score/Fall Risk Level 3 or more points = High Risk Oriented to surroundings, Maintained a safe environment, Educated pt \\T\\ family on fall prevention, incl call for assistance when getting out of bed. Abuse screen: Denies threats or abuse. Denies injuries from another. Nutritional screening: No deficits noted. Tuberculosis screening: No symptoms or risk factors identified. Assessment: 14:22 General: Appears in no apparent distress. comfortable, well groomed, well developed, kc6 Behavior is calm, cooperative, appropriate for age. Pain: Complains of pain in face and scalp. Neuro: Level of Consciousness is awake, alert, obeys commands, Oriented to person, place, time, situation, Appropriate for age Reports dizziness, headache a syncopal episode. Cardiovascular: Reports lightheadedness, Denies chest pain, shortness of breath, Capillary refill < 3 seconds Rhythm is regular. Respiratory: Airway is patent Trachea midline Respiratory effort is even, unlabored, Respiratory pattern is regular, symmetrical. GI: No signs and/or symptoms were reported involving the gastrointestinal system. : No signs and/or symptoms were reported regarding the genitourinary system. EENT: No signs and/or symptoms were reported regarding the EENT system. Derm: Skin is healthy with good turgor, Skin is dry, Skin is normal, Skin temperature is warm. Musculoskeletal: No signs and/or symptoms reported regarding the musculoskeletal system. Circulation, motion, and sensation intact. Capillary refill < 3 seconds, Range of motion: intact in all extremities. 15:31 Reassessment: Patient appears in no apparent distress at this time. No changes from kc6 previously documented assessment. Patient and/or family updated on plan of care and expected duration. Pain level reassessed. Patient is alert, oriented x 3, equal unlabored respirations, skin warm/dry/pink. 16:39 Reassessment: Patient appears in no apparent distress at this time. No changes from kc6 previously documented assessment. Patient and/or family updated on plan of care and expected duration. Pain level reassessed. Patient is alert, oriented x 3, equal unlabored respirations, skin warm/dry/pink. 16:39 Derm: Wound noted coccyx and gluteal cleft Wound is non blanchable with some dark kc6 purple bruising. pt reports pain to the area. no swelling or drainage. 17:57 Reassessment: Patient appears in no apparent distress at this time. No changes from [facility] previously documented assessment. Patient and/or family updated on plan of care and expected duration. Pain level reassessed. Patient is alert, oriented x 3, equal unlabored respirations, skin warm/dry/pink. 19:05 Reassessment: Patient and/or family updated on plan of care and expected duration. Pain br2 level reassessed. Patient is alert, oriented x 3, equal unlabored respirations, skin warm/dry/pink. General: Appears in no apparent distress. comfortable, Behavior is calm, cooperative, appropriate for age. Pain:. 19:08 Reassessment: Patient appears in no apparent distress at this time. No changes from [facility] previously documented assessment. Patient and/or family updated on plan of care and expected duration. Pain level reassessed. Patient is alert, oriented x 3, equal unlabored respirations, skin warm/dry/pink. 19:12 Reassessment: attempted to call report to [facility]. no answer at this time. maria eugenia Hogan RN made aware. 20:58 Reassessment: ATTEMPTED TO CALL REPORT AND NURSE IN A ROOM. THEY ASKED ME TO CALL BACK br2 IN 10 MINUTES. Vital Signs: 14:06 BP 111 / 65; Pulse 63; Resp 16 S; Temp 97.9(O); Pulse Ox 100% on R/A; Weight 56.25 kg kc6 (R); Height 5 ft. 2 in. (R); 15:31 BP 126 / 55; Pulse 63; Resp 16 S; Pulse Ox 98% on R/A; kc6 16:39 BP 94 / 74; Pulse 69; Resp 16 S; Pulse Ox 100% on R/A; kc6 17:57 BP 120 / 58; Pulse 68; Resp 17 S; Pulse Ox 99% on R/A; kc6 19:08 BP 124 / 55; Pulse 64; Resp 16 S; Pulse Ox 98% on R/A; kc6 20:00 BP 122 / 54; Pulse 67; Resp 18 S; Pulse Ox 99% on R/A; br2 21:00 BP 117 / 53; Pulse 71; Resp 18; Pulse Ox 99% ; br2 14:06 Body Mass Index 22.68 (56.25 kg, 157.48 cm) [address] Stroke Scale Scores: 17:25 NIHSS Score: 0 [facility] ED Course: 14:06 Patient arrived in ED. kc6 14:06 Jerzy Smiley MD is Attending Physician. [facility] 14:08 Triage completed. kc6 14:08 Arm band placed on. kc6 14:09 Patient has correct armband on for positive identification. Bed in low position. Call kc6 light in reach. Side rails up X2. demolition expert on. Pulse ox on. NIBP on. Door closed. Noise minimized. Lights dimmed. Warm blanket given. Pillow given. 14:09 Patient maintains SpO2 saturation greater than 95% on room air. kc6 14:13 Feli Hart, ANNA is Primary Nurse. kc6 14:30 Chest Abd Pelvis Wo Con In Process Unspecified. EDMS 14:32 Head C Spine Mpr Wo Con In Process Unspecified. EDMS 15:00 Accessed Port-a-Cath. Blood collected. using accessed w/ # 20 [place] needle, ,sterile kc technique, per hospital protocol. Clean \\T\\ dry. Dressing intact. Good blood return. Flushes easily. 15:16 XRAY Chest (1 view) In Process Unspecified. EDMS 16:39 Assisted to bedside commode. Repositioned patient. Cleaned of incontinence. Linen kc6 changed. 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 kc6 17:56 Lactate w/ 2H reflex if indic. Sent. kc6 17:56 Blood Culture Adult (2) Sent. kc6 17:57 Patient requests pain medication. kc6 19:00 Report given to Samira Simpson RN. kc6 20:00 Transfer delayed due to waiting for nurse to call report. rv1 Administered Medications: 15:03 Drug: NS 0.9% IV 500 ml 500 ml IV at 1 bolus once; to be given as a bolus over 30 kc6 minutes Volume: 500 ml; Route: IV; Rate: 1 bolus; Site: PICC; 16:03 Follow up: Response: No adverse reaction; IV Status: Completed infusion; IV Intake: kc6 500ml 18:21 Drug: Pantoprazole IVP 80 mg IVP once Route: IVP; Site: Port-a-cath; kc6 19:00 Follow up: Response: No adverse reaction kc6 18:21 Drug: NS 0.9% IV (30 ml/kg) 30 ml/kg IV at bolus once; Sepsis Protocol; to be given as kc6 a bolus over 90 minutes Route: IV; Rate: bolus; Site: Port-a-cath; 18:21 Drug: Ondansetron IVP 4 mg IVP once; over 2 minutes Route: IVP; Site: Port-a-cath; kc6 19:00 Follow up: Response: No adverse reaction kc6 18:22 Drug: levofloxacin IVPB 500 mg 100 ml IVPB once over 60 mins Volume: 100 ml; Route: kc6 IVPB; Infused Over: 60 mins; Site: Port-a-cath; 18:22 Drug: fentaNYL (PF) IVP 25 mcg IVP once Route: IVP; Site: Port-a-cath; kc6 19:00 Follow up: Response: No adverse reaction; Pain is decreased; RASS: Alert and Calm (0) 6 19:59 Drug: Pantoprazole IV 8 mg/hr IV at 25 ml/hr continuous; (Standard dilution is 80 mg in br2 250 mL NS) Route: IV; Rate: 25 ml/hr; Site: Port-a-cath; 22:21 Drug: fentaNYL (PF) IVP 25 mcg IVP once Route: IVP; Site: Port-a-cath; br2 Intake: 16:03 IV: 500ml; Total: 500ml. [facility] Outcome: 17:29 ER care complete, transfer ordered by MD. shin 23:29 Patient left the ED. br2 NIH Stroke Scale - NIH Stroke Score Date: 08/08/2024 Time: 17:25 Total Score = 0 10. Dysarthria (speech clarity - read or repeat words) - 0(Normal) 11. Extinction and Inattention (visual/tactile/auditory/spatial/personal) - 0(No abnormality) 1a. Level of Consciousness (LOC) - 0(Alert) 1b. Level of Consciousness (LOC) (Month \\T\\ Age) - 0(Both) 1c. LOC Commands (Open \\T\\ Closes Eyes/Netting Inspector) - 0(Both) 2. Best Gaze (Lateral Gaze Paresis) - 0(Normal) 3. Visual Field Loss - 0(No visual loss) 4. Facial Palsy - 0(Normal) 5a. Left Arm: Motor (10-second hold) - 0(No drift) 5b. Right Arm: Motor (10-second hold) - 0(No drift) 6a. Left Leg: Motor (5-second hold - always test supine) - 0(No drift) 6b. Right Leg: Motor (5-second hold - always test supine) - 0(No drift) 7. Limb Ataxia (finger/nose \\T\\ heel/portillo - test with eyes open) - 0(Absent) 8. Sensory Loss (pinprick arms/legs/face) - 0(Normal) 9. Best Language: Aphasia (description/naming/reading) - 0(No aphasia) Initials: aleida Addendum: 08/10/2024 12:01 Addendum: Culture Results: Positive urine culture. Phone call Attempt #1 faxed iw urine culture report to [phone]. Signatures: Dispatcher [employer] Jerzy Leyva MD MD cha Williams, Irene RN ANNA iw Feli Hart RN RN kc6 Lacy Sanders rv1 Samira Simpson RN RN br2 Corrections: (The following items were deleted from the chart) 08/08 17:14 14:22 Derm: Skin is healthy with good turgor, Skin is dry, Skin is normal, Skin kc6 temperature is warm kc6 17:57 15:00 Accessed PICC line. Blood collected. using accessed w/ # 20 [place] needle, kc6 ,sterile technique, per hospital protocol. Clean \\T\\ dry. Dressing intact. Good blood return. Flushes easily. kc6
[2024-08-08] MEDS ORDERED: Levofloxacin500mg IV 500 MG/100 ML BAG IV ONE (18:04)
[2024-08-08] MEDS ORDERED: PANTOPRAZOLE 40 MG INJ ONE (18:04)
[2024-08-08] MEDS ORDERED: FENTANYL CITR 100 MCG/2 ML ONE ×2 (18:04→22:15)
[2024-08-08] MEDS ORDERED: ONDANSETRON 4 MG/2 ML VIAL ONE (18:04)
[2024-08-08] MEDS ORDERED: NA CHLORIDE 0.9% 1,000 ML ONE (18:05)
[2024-08-08] MEDS ORDERED: PANTOPRAZOLE INJ 80 MG in NA CHLORIDE 0.9% 250 ML IV SCH (19:00)
[2024-08-08 23:45] VITALS: TEMP 97.9
[2024-08-08 23:53] VITALS: O2SAT 99
[2024-08-08 23:55] VITALS: BP 117/53
--- NOTE | 2024-08-09 14:39 | EKG ---
Test Date: 2024-08-08 Test Time: 14:37:05 Stitch Bonding Machine Tender: JANINA MEASUREMENT RESULTS: Intervals: Rate: 63 WY: 168 QRSD: 146 QT: 448 QTc: 458 Warren: P: 55 WY: 168 QRS: -29 T: 75 INTERPRETIVE STATEMENTS: Normal sinus rhythm Left bundle branch block Abnormal ECG Compared to ECG 07/22/2024 14:53:58 Sinus tachycardia no longer present Left-axis deviation no longer present Electronically Signed On 08-09-24 14:38:42 DEALERSHIP MANAGER by Romeo Metz
== END 2024-08-08 23:29 | disposition short-term general hospital (02) ==
LOC: ER 13:59
DX: J15.8 Pneumonia due to other specified bacteria (principal); D64.9 Anemia, unspecified; N30.01 Acute cystitis with hematuria; K92.2 Gastrointestinal hemorrhage, unspecified; R29.6 Repeated falls; Z79.01 Long term (current) use of anticoagulants; I10 Essential (primary) hypertension; Z85.3 Personal history of malignant neoplasm of breast; Z90.13 Acquired absence of bilateral breasts and nipples
CPT/HCPCS: 96361; 93005; 87040 ×2; 87088; 85025; 81001; 87086; 80048; 36415; 83735; 85610; 80076; 83605; 87077; 87186; 84484; 83690; 83880; 70450; 71250; 72125; 74176; 71045; 96375; 96374; 99285; J2470; J3010 ×2; J2405; J7050; J7030

== ENCOUNTER 2024-11-30 20:26 | Inpatient (IN) | payer OTHER ==
--- NOTE | 2024-11-30 21:13 | RAD REPORT ---
Procedure: Chest Single View HISTORY: Cough COMPARISON: 2023 FINDINGS: Mild to moderate bilateral pulmonary opacities. Small right pleural effusion. .The heart is mildly enlarged. IMPRESSION: Mild to moderate bilateral pulmonary opacities have more of the appearance of pulmonary edema than pn eumonia.
--- NOTE | 2024-11-30 21:25 | ER ---
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 PT REPORTS HX OF COPD. PT WAS 94% RA. Coronavirus screen: difficulty breathing. Ebola Screen: No symptoms or risks identified at this time. Initial Sepsis Screen: Does the patient meet any 2 criteria? No. Patient's initial sepsis screen is negative. Does the patient have a suspected source of infection? No. Patient's initial sepsis screen is negative. Risk Assessment: Do you want to hurt yourself or someone else? Patient reports no desire to harm self or others. Onset of symptoms was November 30, 2024. Care prior to arrival: Glucose check: 160 Oxygen administered. via nasal cannula. 20:31 Method Of Arrival: EMS: [facility] dd2 20:31 Acuity: RAMEZ 3 dd2 Triage Assessment: 20:37 General: Appears in no apparent distress. comfortable, Behavior is calm, cooperative, dd2 appropriate for age. Pain: Denies pain. EENT: No deficits noted. No signs and/or symptoms were reported regarding the EENT system. Neuro: Lemus Agitation-Sedation Scale (RASS): 0 - Alert and Calm Level of Consciousness is awake, alert, obeys commands, Oriented to person, place, time, situation, Appropriate for age. Cardiovascular: Reports shortness of breath, JVD is absent Patient's skin is warm and dry. Rhythm is regular. Respiratory: Reports shortness of breath at rest on exertion Airway is patent Respiratory effort is even, labored, Respiratory pattern is regular, symmetrical, Breath sounds with wheezes bilaterally. GI: No deficits noted. Abdomen is non-distended, Abd is soft and non tender X 4 quads. : No deficits noted. No signs and/or symptoms were reported regarding the genitourinary system. Derm: No deficits noted. No signs and/or symptoms reported regarding the dermatologic system. Skin is intact, Skin is dry, Skin is normal, Skin temperature is warm. Musculoskeletal: No deficits noted. No signs and/or symptoms reported regarding the musculoskeletal system. Circulation, motion, and sensation intact. Range of motion: intact in all extremities. Historical: - Allergies: 20:37 No Known Allergies; dd2 - PMHx: 20:37 BREAST CA; Hypercholesterolemia; Hypertensive disorder; SBO (BREAST CA); dd2 - PSHx: 20:37 B mastectomy; BOWEL SX (B mastectomy); dd2 - Immunization history:: Adult Immunizations up to date. - Infectious Disease History:: Denies. - Social history:: Smoking status: Patient/guardian denies using tobacco, the patient reports quitting approximately 13 years ago. - Family history:: not pertinent. Screenin:27 Abuse screen: Denies threats or abuse. Nutritional screening: No deficits noted. lg3 Tuberculosis screening: No symptoms or risk factors identified. 22:15 [facility] ED Fall Risk Assessment (Adult) History of falling in the last 3 months, dd2 including since admission No falls in past 3 months (0 pts) Confusion or Disorientation No (0 pts) Intoxicated or Sedated No (0 pts) Impaired Gait No (0 pts) Mobility Assist Device Used Yes (1 pt) Altered Elimination No (0 pt) Score/Fall Risk Level 0 - 2 = Low Risk Oriented to surroundings, Maintained a safe environment, Educated pt \T\ family on fall prevention, incl call for assistance when getting out of bed, Assessed \T\ reinforced patient's understanding of fall precautions, Hourly rounding (assess needs \T\ fall precautionary measures) done. Assessment: 20:39 Reassessment: SEE TRIAGE ASSESSMENT FOR FULL ASSESSMENT. dd2 23:45 Respiratory: Airway is patent Respiratory effort is even, labored, pursed lip, dd2 Respiratory pattern is regular, symmetrical, Patient placed on BiPAP: Inspiratory Pressure: 14 Expiratory (EPAP) Pressure: 6 FiO2%: 40 Respiratory Rate: 16 Breath sounds with wheezes bilaterally. the patient has moderate shortness of breath. 12/01 01:53 Reassessment: Patient and/or family updated on plan of care and expected duration. Pain dd2 level reassessed. Patient is alert, oriented x 3, equal unlabored respirations, skin warm/dry/pink. PT REQUESTED TO BE REMOVED FROM BIPAP. PT REMOVED AND PLACED ON O2 3 LPM NC. PT TOLERATING WELL. PT REPORTS FEELING BETTER, DIFFICULTY BREATHING HAS IMPROVED. PT HAS INPT ROOM ASSIGNED. Patient states feeling better. Patient states symptoms have improved. Vital Signs: 11/30 20:31 BP 137 / 67; Pulse 84; Resp 17; Temp 98.1; Pulse Ox 98% on 2 lpm NC; Weight 51.71 kg dd2 (M); Pain 0/10; 21:30 BP 112 / 57; Pulse 75; Resp 18; Pulse Ox 100% on 2 lpm NC; dd2 22:15 BP 100 / 63; Pulse 77; Resp 17; Pulse Ox 100% on 2 lpm NC; dd2 23:00 BP 115 / 51; Pulse 90; Resp 16; Pulse Ox 99% on BiPAP; FiO2 40 %; dd2 23:30 BP 100 / 63; Pulse 82; Resp 16; Pulse Ox 100% on BiPAP; dd2 12/01 00:00 BP 119 / 60; Pulse 88; Resp 16; Pulse Ox 99% on BiPAP; dd2 01:00 BP 92 / 52; Pulse 82; Resp 17; Pulse Ox 99% on BiPAP; FiO2 40 %; dd2 01:30 BP 110 / 60; Pulse 82; Resp 16; Pulse Ox 99% on 4 lpm NC; dd2 02:54 BP 104 / 53; Pulse 85; Resp 16 S; Pulse Ox 97% on 4 lpm NC; lg3 11/30 20:31 Pain Scale: Adult dd2 [place] Coma Score: 11/30 22:15 Eye Response: spontaneous(4). Motor Response: obeys commands(6). Verbal Response: dd2 oriented(5). Total: 15. ED Course: 20:29 Patient arrived in ED. rv1 20:36 Jerzy Smiley MD is Attending Physician. aleida 20:37 Triage completed. dd2 20:37 EKG done, by ED staff, reviewed by Jerzy Smiley MD. hw 20:37 Arm band placed on right wrist. dd2 20:55 XRAY Chest (1 view) In Process Unspecified. EDMS 20:55 GHASSAN ROOT, ANNA is Primary Nurse. dd2 21:24 Jaydon Bloom MD is Hospitalizing Provider. aleida 21:25 No provider procedures requiring assistance completed. Accessed Port-a-Cath. using dd2 accessed w/ # 20 [place] needle, ,sterile technique, per hospital protocol. Clean \T\ dry. Dressing intact. Good blood return. Flushes easily. 21:27 Patient has correct armband on for positive identification. Bed in low position. Call lg3 light in reach. alarm security or surveillance monitor on. Pulse ox on. NIBP on. 21:27 Provided Education on: Plan of care. lg3 21:30 First set of blood cultures drawn by me, Second set of blood cultures drawn by me. dd2 Oxygen administration via nasal cannula \T\ 2L/min. 21:31 COVID-19 Ag + Flu A+B Ag Sent. dd2 21:31 D-Dimer Sent. dd2 21:31 Blood Culture Adult (2) Sent. dd2 21:31 Basic Metabolic Panel Sent. dd2 21:31 CBC with Diff Sent. dd2 21:31 LFT's Sent. dd2 21:31 Magnesium Sent. dd2 21:31 NT PRO-BNP Sent. dd2 21:31 PT-INR Sent. dd2 21:31 Troponin HS Sent. dd2 22:49 CT Chest For PE Angio In Process Unspecified. EDMS 23:47 BIPAP Sent. dd2 Administered Medications: 21:21 CANCELLED (Duplicate Order): ns 0.9% 1000 ml IV at 1000 ml once; to be given as a bolus aleida over 60 minutes 21:56 Drug: Rocephin IV 1 grams IV at per protocol once; Given slow IV push per pharmacy dd2 instructions Route: IV; Rate: per protocol; Site: Port-a-cath; 22:16 Follow up: Response: No adverse reaction; IV Status: Completed infusion; IV Intake: [id number] 21:57 Drug: Ipratropium Inhalation Aerosol 0.5 mg Inhalation once Route: Inhalation; dd2 22:30 Follow up: Response: No adverse reaction dd2 21:58 Drug: Famotidine IVP 20 mg IVP once; dilute with 10 mL 0.9% NaCl; give over 2 minutes dd2 Route: IVP; Site: Port-a-cath; 22:13 Follow up: Response: No adverse reaction dd2 21:58 Drug: MethylPrednisoLONE IVP 125 mg IVP once Route: IVP; Site: Port-a-cath; dd2 22:13 Follow up: Response: No adverse reaction dd2 21:58 Drug: Levalbuterol Inhalation 3.75 mg Inhalation once Route: Inhalation; dd2 22:30 Follow up: Response: No adverse reaction dd2 23:09 Drug: levofloxacin IVPB 500 mg 100 ml IVPB once over 60 mins Volume: 100 ml; Route: dd2 IVPB; Infused Over: 60 mins; Site: Port-a-cath; 12/01 00:10 Follow up: Response: No adverse reaction; IV Status: Infusion continued dd2 11/30 23:44 Drug: Furosemide IVP 40 mg IVP once; give over 2 minutes Route: IVP; Site: Port-a-cath; dd2 12/01 00:00 Follow up: Response: No adverse reaction dd2 Medication: 11/30 20:40 VIS not applicable for this client. dd2 Intake: 22:16 IV: 50ml; Total: 50ml. dd2 Outcome: 21:25 Decision to Hospitalize by Provider. aleida 12/01 03:43 Patient left the ED. vc1 Signatures: Dispatcher [employer] EDMS Jerzy Smiely MD MD cha Able, Lacie RN RN lg3 Barbara Nix RN RN vc1 Lacy Sanders rv1 GHASSAN ROOT RN RN dd2 Marii Vicente Corrections: (The following items were deleted from the chart) 11/30 23:18 20:37 Respiratory: Reports shortness of breath at rest on exertion Airway is patent dd2 Respiratory effort is even, labored, Respiratory pattern is regular, symmetrical, Breath sounds are clear bilaterally. dd2
--- NOTE | 2024-11-30 21:25 | EDPHYS ---
Physician Documentation [facility] Name: Veronique Keller Age: 89 yrs Sex: Female : 1935 Arrival Date: 11/30/2024 Time: 20:26 Bed 6 Private MD: ED Physician Jerzy Smiley HPI: 11/30 20:44 This 89 yrs old Female presents to ER via EMS with complaints of dyspnea. aleida 20:45 hx of past smoking. The patient or guardian reports cough, difficulty breathing, flu aleida symptoms, arthralgias, low-grade fever, myalgias, no appetite. Severity of symptoms: At their worst the symptoms were moderate, in the emergency department the symptoms are unchanged. Modifying factors: The symptoms are alleviated by nothing, the symptoms are aggravated by cold weather. Associated signs and symptoms: Pertinent positives: sore throat. Severity of symptoms: At their worst the symptoms were in the emergency department the symptoms. The patient has experienced similar episodes in the past, a few times. Historical: - Allergies: 20:37 No Known Allergies; dd2 - PMHx: 20:37 BREAST CA; Hypercholesterolemia; Hypertensive disorder; SBO (BREAST CA); dd2 - PSHx: 20:37 B mastectomy; BOWEL SX (B mastectomy); dd2 - Immunization history:: Adult Immunizations up to date. - Infectious Disease History:: Denies. - Social history:: Smoking status: Patient/guardian denies using tobacco, the patient reports quitting approximately 13 years ago. - Family history:: not pertinent. ROS: 20:45 Constitutional: Negative for fever, chills, and weight loss, Eyes: Negative for injury, aleida pain, redness, and discharge, ENT: Negative for injury, pain, and discharge, Neck: Negative for injury, pain, and swelling, Cardiovascular: Negative for chest pain, palpitations, and edema, Abdomen/GI: Negative for abdominal pain, nausea, vomiting, diarrhea, and constipation, Back: Negative for injury and pain, : Negative for injury, bleeding, discharge, and swelling, MS/Extremity: Negative for injury and deformity, Skin: Negative for injury, rash, and discoloration, Neuro: Negative for headache, weakness, numbness, tingling, and seizure, Psych: Negative for depression, anxiety, suicide ideation, homicidal ideation, and hallucinations, Allergy/Immunology: Negative for hives, rash, and allergies, Endocrine: Negative for neck swelling, polydipsia, polyuria, polyphagia, and marked weight changes, Hematologic/Lymphatic: Negative for swollen nodes, abnormal bleeding, and unusual bruising, 20:45 Respiratory: Positive for cough, dyspnea on exertion, pleurisy, shortness of breath, wheezing, inspiratory, expiratory, Exam: 20:45 Constitutional: This is a well developed, well nourished patient who is awake, alert, aleida and in no acute distress. Head/Face: Normocephalic, atraumatic. Eyes: Pupils equal round and reactive to light, extra-ocular motions intact. Lids and lashes normal. Conjunctiva and sclera are non-icteric and not injected. Cornea within normal limits. Periorbital areas with no swelling, redness, or edema. ENT: Nares patent. No nasal discharge, no septal abnormalities noted. Tympanic membranes are normal and external auditory canals are clear. Oropharynx with no redness, swelling, or masses, exudates, or evidence of obstruction, uvula midline. Mucous membranes moist. Neck: Trachea midline, no thyromegaly or masses palpated, and no cervical lymphadenopathy. Supple, full range of motion without nuchal rigidity, or vertebral point tenderness. No Meningismus. Chest/axilla: Normal chest wall appearance and motion. Nontender with no deformity. No lesions are appreciated. Cardiovascular: Regular rate and rhythm with a normal S1 and S2. No gallops, murmurs, or rubs. Normal PMI, no JVD. No pulse deficits. Abdomen/GI: Soft, non-tender, with normal bowel sounds. No distension or tympany. No guarding or rebound. No evidence of tenderness throughout. Back: No spinal tenderness. No costovertebral tenderness. Full range of motion. Skin: Warm, dry with normal turgor. Normal color with no rashes, no lesions, and no evidence of cellulitis. MS/ Extremity: Pulses equal, no cyanosis. Neurovascular intact. Full, normal range of motion., bilateral aka Neuro: Awake and alert, GCS 15, oriented to person, place, time, and situation. Cranial nerves II-XII grossly intact. Motor strength 5/5 in all extremities. Sensory grossly intact. Cerebellar exam normal. Normal gait. Psych: Awake, alert, with orientation to person, place and time. Behavior, mood, and affect are within normal limits. 20:45 ECG was reviewed by the Attending Physician. 20:45 Respiratory: moderate respiratory distress is noted, Respirations: labored breathing, is not present, Respiratory rate: 17 Vital Signs: 20:31 BP 137 / 67; Pulse 84; Resp 17; Temp 98.1; Pulse Ox 98% on 2 lpm NC; Weight 51.71 kg dd2 (M); Pain 0/10; 21:30 BP 112 / 57; Pulse 75; Resp 18; Pulse Ox 100% on 2 lpm NC; dd2 22:15 BP 100 / 63; Pulse 77; Resp 17; Pulse Ox 100% on 2 lpm NC; dd2 23:00 BP 115 / 51; Pulse 90; Resp 16; Pulse Ox 99% on BiPAP; FiO2 40 %; dd2 23:30 BP 100 / 63; Pulse 82; Resp 16; Pulse Ox 100% on BiPAP; dd2 04 00:00 BP 119 / 60; Pulse 88; Resp 16; Pulse Ox 99% on BiPAP; dd2 01:00 BP 92 / 52; Pulse 82; Resp 17; Pulse Ox 99% on BiPAP; FiO2 40 %; dd2 01:30 BP 110 / 60; Pulse 82; Resp 16; Pulse Ox 99% on 4 lpm NC; dd2 02:54 BP 104 / 53; Pulse 85; Resp 16 S; Pulse Ox 97% on 4 lpm NC; lg3 11/30 20:31 Pain Scale: Adult dd2 [place] Coma Score: 11/30 22:15 Eye Response: spontaneous(4). Motor Response: obeys commands(6). Verbal Response: dd2 oriented(5). Total: 15. MDM: 20:36 Medical Screening Exam initiated aleida 20:48 Differential Diagnosis: Obstructed Airway Bronchitis Influenza Upper Respiratory aleida Infection Sinusitis Pharyngitis Otitis Media Asthma Exacerbation Viral Syndrome Pneumonia. Data reviewed: vital signs, nurses notes, lab test result(s), EKG, radiologic studies, plain films. Consideration of Admission/Observation Patient was admitted/placed on observation. Escalation of care including admission/observation considered. I considered the following discharge prescriptions or medication management in the emergency department Medications were administered in the Emergency Department. See MAR. Independent interpretation of the following test(s) in the Emergency Department EKG: See my EKG interpretation above. Test considered but Not performed: CT: no ct chest. Historians other than the Patient: pt well informed. Care significantly affected by the following chronic conditions: Hypertension, Chronic Obstructive Pulmonary Disease, Cancer, past smoker. Counseling: I had a detailed discussion with the patient and/or guardian regarding the historical points, exam findings, and any diagnostic results supporting the discharge/admit diagnosis, lab results, radiology results, the need for further work-up and treatment in the hospital. 11/30 20:41 Order name: Basic Metabolic Panel; Complete Time: 23:36 aleida 11/30 20:41 Order name: CBC with Diff aleida 11/30 20:41 Order name: LFT's; Complete Time: 23:36 aleida 11/30 20:41 Order name: Magnesium; Complete Time: 23:36 aleida 11/30 20:41 Order name: NT PRO-BNP; Complete Time: 23:36 aleida 11/30 20:41 Order name: PT-INR; Complete Time: 21:57 aleida 11/30 20:41 Order name: Troponin HS; Complete Time: 23:36 aleida 11/30 20:41 Order name: Blood Culture Adult (2) aleida 11/30 20:41 Order name: D-Dimer; Complete Time: 21:57 aleida 11/30 20:41 Order name: COVID-19 Ag + Flu A+B Ag; Complete Time: 23:36 aleida 11/30 20:41 Order name: Lactate w/ 2H reflex if indic.; Complete Time: 23:36 aleida 11/30 22:46 Order name: Manual Differential EDMS 11/30 22:57 Order name: CBC with Automated Diff EDMS 11/30 22:57 Order name: CBC with Automated Diff EDMS 11/30 22:57 Order name: Comprehensive Metabolic Panel EDMS 11/30 22:57 Order name: Comprehensive Metabolic Panel EDMS 11/30 22:57 Order name: Troponin High Sensitivity EDMS 11/30 22:57 Order name: Troponin High Sensitivity EDMS 11/30 22:57 Order name: Troponin High Sensitivity EDMS 11/30 22:57 Order name: Troponin High Sensitivity EDMS 11/30 20:41 Order name: XRAY Chest (1 view); Complete Time: 21:57 aleida 11/30 21:22 Order name: CT Chest For PE Angio; Complete Time: 23:36 aleida 11/30 23:37 Order name: BIPAP [facility] 11/30 20:41 Order name: EKG; Complete Time: 20: [facility] 11/30 20:41 Order name: Cardiac monitoring; Complete Time: : [facility] 11/30 20:41 Order name: EKG - Nurse/Tech; Complete Time: : [facility] 11/30 20:41 Order name: IV Saline Lock; Complete Time: : [facility] 11/30 20:41 Order name: Labs collected and sent; Complete Time: : [facility] 11/30 20:41 Order name: O2 Per Protocol; Complete Time: : [facility] 11/30 20:41 Order name: O2 Sat Monitoring; Complete Time: : [facility] EC:45 Rate is 80 beats/min. Rhythm is regular. QRS [place] is Normal. [place] interval is normal. QRS aleida interval is normal. QT interval is normal. No Q waves. T waves are Normal. No ST changes noted. Clinical impression: NSR w/ Non-specific ST/T Changes and No evidence of ischemia. Interpreted by me. Reviewed by me. Administered Medications: 21:21 CANCELLED (Duplicate Order): ns 0.9% 1000 ml IV at 1000 ml once; to be given as a bolus aleida over 60 minutes 21:56 Drug: Rocephin IV 1 grams IV at per protocol once; Given slow IV push per pharmacy dd2 instructions Route: IV; Rate: per protocol; Site: Port-a-cath; 22:16 Follow up: Response: No adverse reaction; IV Status: Completed infusion; IV Intake: [id number] 21:57 Drug: Ipratropium Inhalation Aerosol 0.5 mg Inhalation once Route: Inhalation; dd2 22:30 Follow up: Response: No adverse reaction dd2 21:58 Drug: Famotidine IVP 20 mg IVP once; dilute with 10 mL 0.9% NaCl; give over 2 minutes dd2 Route: IVP; Site: Port-a-cath; 22:13 Follow up: Response: No adverse reaction dd2 21:58 Drug: MethylPrednisoLONE IVP 125 mg IVP once Route: IVP; Site: Port-a-cath; dd2 22:13 Follow up: Response: No adverse reaction dd2 21:58 Drug: Levalbuterol Inhalation 3.75 mg Inhalation once Route: Inhalation; dd2 22:30 Follow up: Response: No adverse reaction dd2 23:09 Drug: levofloxacin IVPB 500 mg 100 ml IVPB once over 60 mins Volume: 100 ml; Route: dd2 IVPB; Infused Over: 60 mins; Site: Port-a-cath; 12/01 00:10 Follow up: Response: No adverse reaction; IV Status: Infusion continued dd2 11/30 23:44 Drug: Furosemide IVP 40 mg IVP once; give over 2 minutes Route: IVP; Site: Port-a-cath; dd2 12/01 00:00 Follow up: Response: No adverse reaction dd2 Disposition Summary: 11/30/24 21:25 Hospitalization Ordered Notes: Hospitalization Status: Inpatient Admission aleida Provider: Jaydon Bloom cha Location: Telemetry/MedSurg (Inpatient) aleida Condition: Stable aleida Problem: new aleida Symptoms: have improved aleida Bed/Room Type: Standard aleida Room Assignment: [id number](11/30/24 23:20) kl Diagnosis - Dyspnea aleida - Hypoxemia aleida - COPD/ Chronic obstructive pulmonary disease with (acute) exacerbation aleida - Combined systolic (congestive) and diastolic (congestive) heart failure aleida Forms: - Medication Reconciliation Form aleida - SBAR form aleida - Leadership Thank You Letter aleida Signatures: Dispatcher [employer] Ilana Sanches RN RN kl Anderson, Corey, MD MD cha DAVIS, DIANA, RN RN dd2 Corrections: (The following items were deleted from the chart) 11/30 20:41 20:41 BASIC METABOLIC PANEL+C.LAB.BRZ ordered. EDMS EDMS 20:41 20:41 CBC+H.LAB.BRZ ordered. EDMS EDMS 20:41 20:41 HEPATIC FUNCTION+C.LAB.BRZ ordered. EDMS EDMS 20:41 20:41 MAGNESIUM+C.LAB.BRZ ordered. EDMS EDMS 20:41 20:41 PROBNP+C.LAB.BRZ ordered. EDMS EDMS 20:41 20:41 PROTIME (+INR)+COAG.LAB.BRZ ordered. EDMS EDMS 20:41 20:41 Troponin High Sensitivity+C.LAB.BRZ ordered. EDMS EDMS 20:41 20:41 BLOOD CULTURE*+BA.LAB.BRZ ordered. EDMS EDMS 20:41 20:41 D-DIMER+COAG.LAB.BRZ ordered. EDMS EDMS 20: 20:41 COVID-19 Ag + Flu A+B Ag+I.LAB.BRZ ordered. EDMS EDMS : 20:41 LACTATE+C.LAB.BRZ ordered. EDMS EDMS : 20:41 NS 0.9% IV 1000 ml IV at 1000 ml once; to be given as a bolus over 60 minutes aleida ordered. aleida 23:20 21:25 aleida [address]
[2024-11-30] MEDS ORDERED: IPRATROPIUM BROM 0.5MG/2.5ML ONE (21:36)
[2024-11-30] MEDS ORDERED: LEVALBUTEROL 1.25 MG/3 ML NEB ONE (21:36)
[2024-11-30] MEDS ORDERED: METHYLPREDNISOLONE 125 MG INJ ONE (21:36)
[2024-11-30] MEDS ORDERED: FAMOTIDINE 20 MG/2 ML VIAL IV ONE (21:36)
[2024-11-30] MEDS ORDERED: CEFTRIAXONE 1000 MG/VIAL ONE (21:36)
[2024-11-30] MEDS ORDERED: NA CHLORIDE 0.9% 50 ML ONE (21:37)
[2024-11-30] MEDS ORDERED: Levofloxacin500mg IV 500 MG/100 ML BAG IV ONE (21:37)
[2024-11-30 21:45] LABS: Absolute Basophils 0.1 K/uL (0-0.5); Absolute Lymphocytes (CBC) 0.6 K/uL (0.7-4.9); Absolute Monocytes 0.9 K/uL (0.1-1.3); Absolute Neutrophil 12.5 K/uL (1.8-8.0); Basophils % 0.4 % (0-1.3); Eosinophils % 0.3 % (0-4.4); Hematocrit 29.6 % (36.0-45.0); Hemoglobin 9.4 g/dL (12.0-15.0); Lymphocytes % 4.6 % (15.3-44.8); MCH 22.3 pg (27.0-35.0); MCHC 31.9 g/dL (32.0-36.0); MCV 69.9 fL (80-100); MPV 10.3 fL (7.6-11.3); Monocytes % 6.6 % (3.3-12.3); Neutrophils % 88.1 % (41.7-73.7); Nucleated Red Blood Cells % 0.1 % (0-0); Platelets 298 thou/uL (152-406); RBC Red Blood Cell Count 4.23 M/uL (3.86-4.86); Red Cell Distribution Width 17.5 % (12.1-15.2)
[2024-11-30 21:54] LABS: D-Dimer 1.005 FEUug/mL (0-0.500); PT Prothrombin Time 12.7 SECONDS (10-13.0); Protime INR 1.12
[2024-11-30 21:55] LABS: ALT/SGPT 18 U/L (13-56); AST/SGOT 12 U/L (15-37); Albumin 2.9 g/dL (3.4-5.0); Albumin/Globulin Ratio 0.9 (1.1-1.8); Alkaline Phosphatase 104 U/L (45-117); Anion Gap 10.3 mEq/L (5.0-15.0); BUN Blood Urea Nitrogen 48 mg/dL (7-18); Bicarbonate 24 mEq/L (21-32); Bilirubin Total 0.3 mg/dL (0.2-1.0); Globulin 3.4 g/dL (2.3-3.5); Glomerular Filtration Rate 62 ml/min (=/>90); Glucose Level 167 mg/dL (74-106); Magnesium 2.5 mg/dL (1.6-2.4); NT PRO-BNP 26663 pg/mL (<450); Potassium 4.3 mEq/L (3.5-5.1); Protein, Total 6.3 g/dL (6.4-8.2); Sodium Level 134 mEq/L (136-145)
[2024-11-30 21:57] LABS: Bilirubin Direct < 0.2 mg/dL (0-0.2); Bilirubin Indirect, Calculated 0.1 mg/dL (0.2-0.8)
[2024-11-30 21:58] LABS: Troponin High Sensitivity 85.3 pg/mL (<58.9)
[2024-11-30 22:38] LABS: Influenza A Ag Negative; Influenza B Ag Negative; SARS-CoV-2 Antigen Rapid Res Negative (Negative)
[2024-11-30] MEDS ORDERED: ACETAMINOPHEN 325 MG TABLET PO PRN (22:50)
[2024-11-30] MEDS ORDERED: ONDANSETRON 4 MG/2 ML VIAL IV PRN (22:50)
--- NOTE | 2024-11-30 22:58 | P.HP ---
Certification for Inpatient Patient admitted to: Inpatient With expected LOS: >2 Midnights Practitioner: I am a practitioner with admitting privileges, knowledge of patient current condition, hospital course, and medical plan of care. Services: Services provided to patient in accordance with Admission requirements found in Title 42 Section 412.3 of the Code of Federal Regulations Patient History Date of Service: 12/01/24 Reason for admission: SOB History of Present Illness: 89 yrs old Female with past medical history of hypertension, hyperlipidemia, history of breast cancer, status post mastectomy brought to ER with shortness of breath. Patient also complains of cough, difficulty breathing, flu symptoms, arthralgias, low-grade fever, myalgias, no appetite. Patient denies any chest pain . Denies any nausea or vomiting. Has subjective fever. Patient has been increasingly short of breath and was brought to ER. Patient was assessed in the ER and was admitted for further management of CHF exacerbation. ; Allergies No Known Allergies Allergy (Verified 07/27/24 14:29) Home medications list reviewed: Yes Home Medications: Aspirin 81 mg PO DAILY 02/26/18 Gabapentin [Gralise] 300 mg PO BEDTIME 02/26/18 dilTIAZem HCL [Diltiazem 24Hr ER (LA)] 180 mg PO DAILY 05/31/18 Chlorthalidone 1 tab PO BEDTIME 06/22/20 Losartan Potassium 50 mg PO BEDTIME 06/22/20 Simvastatin 40 mg PO BEDTIME 07/21/22 Citalopram [Celexa*] 10 mg PO DAILY 02/18/24 Solifenacin [Vesicare*] 5 mg PO DAILY 02/18/24 Hydrocodone 5/APAP 325 [[place] 5/325*] 1 tab PO Q6H PRN tab 07/25/24 Ensure High Protein 237 ml PO BID can 08/04/24 Furosemide [Lasix*] 10 mg PO DAILY #30 tab 08/04/24 Magnesium Oxide [Mag 0X*] 400 mg PO BID tab 08/04/24 Melatonin [Melatonin*] 3 mg PO BEDTIME PRN PRN 08/04/24 Potassium Oral Tab [Klor-Con 10 mEq Tab*] 10 meq PO BID #60 tab 08/04/24 - Past Medical/Surgical History Diabetic: No Past Medical History: Reviewed- Non-Contributory -: Hypertension -: CAD -: Diastolic CHF with reduced EF -: Peripheral vascular disease -: Former smoker -: Breast cancer -: HLD -: dm -: afib -: [place] Past Surgical History: Reviewed- Non-Contributory -: bilateral mastectomy -: 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 - Family History Family History: Reviewed- Non-Contributory - Social History Smoking Status: Never smoker Alcohol use: No CD- Drugs: No Caffeine use: No Review of Systems 10-point ROS is otherwise unremarkable Physical Examination - Vital Signs Temperature: 98.1 F Blood Pressure: 136/68 Pulse: 84 Respirations: 18 Pulse Ox (%): 94 - Physical Exam General: Alert, Moderate distress HEENT: Atraumatic, Normocephalic Neck: Supple Respiratory: Diminished, Crackles/rales, Expiratory wheezes Cardiovascular: No edema Capillary refill: <2 Seconds Gastrointestinal: Soft and benign, W/out hepatosplenomegaly Musculoskeletal: No clubbing, No swelling Integumentary: No rashes, No tenderness/swelling Neurological: Other (Alert awake nonfocal) Lymphatics: No axilla or inguinal lymphadenopathy - Studies Laboratory Data (last 24 hrs) 11/30/24 11/30/24 11/30/24 21:12 21:12 21:12 WBC 14.20 H Hgb 9.4 L Hct 29.6 L Plt Count 298 PT 12.7 INR 1.12 Sodium 134 L Potassium 4.3 BUN 48 H Creatinine 0.89 Glucose 167 H Magnesium 2.5 H Total Bilirubin 0.3 AST 12 L ALT 18 Alkaline Phosphatase 104 Assessment and Plan - Plan Acute on chronic CHF possibly systolic/diastolic Monitor closely on telemetry Started on aggressive diuresis X-ray findings consistent with CHF Oxygen supplementation BiPAP as needed Will try to wean down oxygen requirement Continue home medications Titrate as needed Will obtain an echocardiogram Cardiology consult NSTEMI possibly type II due to CHF exacerbation Will trend cardiac enzymes Will monitor telemetry Started on aspirin and statin EKG did not show any acute changes suggestive of ischemia Patient denies any chest pain COPD exacerbation Pneumonitis Monitor closely on telemetry Started on bronchodilators Oxygen supplementation Started on IV antibiotic Chest x-ray findings noted Pulmonology consult if not better in the a.m. Hypertension Antihypertensives titrated Continue home medications and titrate as needed Hyperlipidemia Continue statin GI/DVT prophylaxis Advanced directive full code Discharge Plan: Home Plan to discharge in: 48 Hours - Advance Directives Does patient have a Living Will: No Does patient have a Durable POA for Healthcare: Yes - Code Status/Comfort Care Code Status: Full Code Time Spent Managing Pts Care (In Minutes): 48
--- NOTE | 2024-11-30 23:34 | RAD REPORT ---
EXAM: Chest For Pe Angio CLINICAL INDICATION: 89-year-old female with cough and dyspnea. COMPARISON: None. EXAMINATION: CT angiography of the pulmonary arteries was performed following intravenous administrat ion of contrast. Coronal and bilateral oblique maximum intensity projections (MIPS) were created. This exam was performed according to our departmental dose optimization program which includes use of automated exposure control, adjustment of the mA and/or kV according to patient size and/or use of iterative reconstruction technique. FINDINGS: Chest: Evaluation through the lungs reveals centrilobular lucency compatible with emphysema. Large right, sm all to moderate left layering pleural effusions. Patchy airspace opacification of the bilateral lower lobes may be secondary to subsegmental atelectasis versus consolidation/multifocal infectious p rocess. Right chest wall port catheter tip terminates at the SVC right atrial junction. The tracheobronchial airways are patent. No significant mediastinal or axillary lymphadenopathy by CT measurement criteria. Limited evaluation of the upper abdomen shows no acute intra-abdominal abnormalities. Large hiatal he rnia. The osseous structures demonstrate diffuse demineralization and degenerative change. Vertebroplasty c ement of T11 with chronic loss of vertebral body height. Loss of vertebral body height at T10, and L1, there chronic in appearance. Bilateral axillary surgical clips. CT angiography: Diagnostic CT angiography of the pulmonary arteries without intraluminal filling defe ct noted to suggest pulmonary arterial embolus. IMPRESSION: 1. Diagnostic pulmonary angiography without findings to suggest pulmonary arterial embolus. 2. Large right, small to moderate left layering pleural effusions. 3. Patchy airspace opacification of the bilateral lower lobes may be secondary to subsegmental atel ectasis versus consolidation/multifocal infectious process. 4. Emphysema. 5. Large hiatal hernia. Electronically signed by: Char Lim MD 11/30/2024 11:18 PM CDT RP Due to temporary technical issues with the PACS/[employer] reporting system, reports are being kaylan d by the in-house radiologist without review as a courtesy to ensure prompt reporting the interpreting radiologist is fully responsible for the content of the report. Transcribed Date/Time: 11/30/2024 11:33 PM
[2024-11-30] MEDS ORDERED: FUROSEMIDE 40 MG/4 ML VIAL ONE (23:38)
[2024-12-01 00:39] LABS: Band Neutrophils 5 % (0-1); Differential Total Cells Count 100; Lymphocytes 7 % (15-42); Monocytes 7 % (0-10); Segmented Neutrophils 81 % (40-80)
[2024-12-01 00:40] LABS: Blood Morphology Comment NOTED (NOT SEEN); Microcytosis 1+; Platelet Estimate ADEQ
[2024-12-01] MEDS: FUROSEMIDE 40 MG/4 ML VIAL IV SCH (01:00)
[2024-12-01] MEDS ORDERED: HEPARIN 5000 UNIT/ML 1 ML VIAL ONE (03:06)
[2024-12-01] MEDS: HEPARIN 5000 UNIT/ML 1 ML VIAL SQ SCH (03:07)
[2024-12-01 04:20] LABS: Absolute Lymphocytes (CBC) 0.2 K/uL (0.7-4.9); Absolute Monocytes 0.1 K/uL (0.1-1.3); Absolute Neutrophil 10.2 K/uL (1.8-8.0); Basophils % 0.3 % (0-1.3); Hematocrit 31.5 % (36.0-45.0); Lymphocytes % 1.7 % (15.3-44.8); MCH 22.1 pg (27.0-35.0); MCHC 31.6 g/dL (32.0-36.0); MCV 70.1 fL (80-100); MPV 10.6 fL (7.6-11.3); Platelets 315 thou/uL (152-406); Red Cell Distribution Width 17.7 % (12.1-15.2)
[2024-12-01 04:31] LABS: Albumin/Globulin Ratio 0.9 (1.1-1.8); Anion Gap 14.1 mEq/L (5.0-15.0); Bilirubin Total 0.3 mg/dL (0.2-1.0); Globulin 3.5 g/dL (2.3-3.5); Potassium 4.1 mEq/L (3.5-5.1); Protein, Total 6.5 g/dL (6.4-8.2)
[2024-12-01] MEDS ORDERED: AZITHROMYCIN IV 500 MG in NA CHLORIDE 0.9% 250 ML IVPB SCH (05:14)
[2024-12-01] MEDS ORDERED: CEFTRIAXONE 1,000 MG in NA CHLORIDE 0.9% 50 ML IVPB SCH (05:14)
[2024-12-01] MEDS: AZITHROMYCIN IV 500 MG in NA CHLORIDE 0.9% 250 ML IVPB SCH (05:58)
[2024-12-01] MEDS: CEFTRIAXONE 1,000 MG in NA CHLORIDE 0.9% 50 ML IVPB SCH (05:58)
[2024-12-01 06:45] LABS: Specific Gravity 1.015 (1.005-1.030); Sqamous Epithelial <5 /HPF (None Seen); Urine Bacteria <20 /HPF (<20); Urine Bilirubin NEGATIVE (Negative); Urine Blood Trace (Negative); Urine Clarity Turbid (Clear); Urine Color Colorless (Yellow); Urine Culture Reflex Order REFLEXED; Urine Glucose TRACE (Negative); Urine Ketones NEGATIVE (Negative); Urine Microscopic Reflex YN ORDER UMIC; Urine Nitrite NEGATIVE (Negative); Urine Protein NEGATIVE (Negative); Urine RBC <5 /HPF (None Seen); Urine Urobilinogen Normal (Normal); Urine WBC 20-50 /HPF (<5)
[2024-12-01] MEDS: VESICARE 5 MG PO SCH (09:00)
[2024-12-01] MEDS: SOLIFENACIN SUCCIN 5 MG TAB PO SCH (09:00)
[2024-12-01] MEDS: ASPIRIN 81 MG CHEWABLE TABLET PO SCH (09:08)
[2024-12-01] MEDS: JUVEN PACKET PO SCH (21:00)
[2024-12-01] MEDS: GABAPENTIN 300 MG CAP PO SCH (21:26)
[2024-12-01] MEDS: ATORVASTATIN 20 MG TAB PO SCH (21:26)
[2024-12-01] MEDS: FUROSEMIDE 40 MG/4 ML VIAL IV ONE (22:49)
[2024-12-01] MEDS: METHYLPREDNISOLONE 125 MG INJ IV ONE (22:49)
--- NOTE | 2024-12-01 22:53 | CON ---
Date of Consultation: 12/01/2024 Reason For Consultation: Shortness of breath and possible CHF. History Of Present Illness: An 89-year-old female with history of hypertension, dyslipidemia, breast cancer, status post mastectomy, who presented with shortness of breath and cough and flu-like sympto ms, low-grade fever. Denies having any chest pain or lower extremity edema or orthopnea. Past Medical History: She has history of hypertension, coronary artery disease, congestive heart raf lure, peripheral vascular disease, breast cancer, dyslipidemia, diabetes, and atrial fibrillation. Medications: Refer reconciliation sheet for detailed list. Allergies: NO KNOWN DRUG ALLERGIES. Family History: No premature coronary artery disease or cancer. Social History: Does not smoke or drink. Does not use any drugs. Review of Systems: All systems reviewed and they were negative except as mentioned in the HPI. Physical Examination: Vital Signs: Reviewed. Head and Neck: Pupils are equal, reactive to light. Intact eye movements. No JVD, no cervical lymp hadenopathy. Neck is supple. Thyroid is not enlarged. Lungs: Rhonchi bilaterally. No accessory muscle use or muscle retraction. Heart: Regular rate and rhythm. No extra sounds. Abdomen: Soft, nontender. Bowel sounds positive. No organomegaly. No masses or hernia. No rigidi ty or rebound. Extremities: No edema, clubbing, cyanosis. Intact pulses. Skin: No rash. No nodules. Neurologic: Alert, awake, and oriented x3. No acute focal deficits appreciated. Lymph Nodes: No cervical or axillary lymphadenopathy. Investigations: Chest x-ray suggesting pulmonary edema. BUN 48, creatinine is 1.17. Troponin 85 up to 222, peaked at 243, and hemoglobin is 10. Assessment/recommendation: 1. Shortness of breath, very high NT-proBNP. Definitely there is a congestive heart failure componen t. However, I think the Lasix dose is very aggressive. Decrease the dose to 20 mg and make it twice a day as a significant rise in her creatinine over the last 24 hours to avoid acute renal failure. Recommend to cut down on the Lasix dose and diurese slowly as the patient is not in distress. Also o btain an echo if it was not done within the recent past. Other causes like pneumonia also needs to b e ruled out and actually the patient is on IV antibiotics. 2. Dyslipidemia, on statin, to continue. 3. History of coronary artery disease. No chest pain. Continue to monitor. SR/MODL Voice ID: [id number] Report ID: [id number]
[2024-12-02] MEDS: DILTIAZEM HCL 180 MG SR CAP PO SCH (08:59)
[2024-12-02] MEDS: FUROSEMIDE 20 MG/ 2ML VIAL IV SCH (08:59)
[2024-12-02] MEDS: CITALOPRAM 10 MG TABLET PO SCH (08:59)
--- NOTE | 2024-12-02 17:35 | P.PN ---
Date of Service: 12/02/24 Subjective Awake, conversing well, NAD education provided concerning right thoracentesis on Thursday, she stated understanding that she was not discharged prior to Thursday No new complaints ROS 10 point ROS as noted above, otherwise negative Physical Exam General: Alert and oriented, NAD HEENT: Atraumatic, Normocephalic Respiratory: Diminished right side, Expiratory wheezes, on 2 LNC Cardiovascular: No edema, mild tachycardia, S1 S2 present Capillary refill: <2 Seconds Gastrointestinal: Soft and benign on palpation Musculoskeletal: No clubbing, No swelling Integumentary: No rashes, No tenderness/swelling Neurological: Other (Alert awake nonfocal) Vitals Reviewed Problem list Acute on chronic CHF possibly systolic/diastolic NSTEMI possibly type II due to CHF exacerbation COPD exacerbation Right Pleural effusion Hypertension Hyperlipidemia Assessment and Plan Acute on chronic CHF possibly systolic/diastolic Continuous telemetry aggressive diuresis X-ray findings consistent with CHF Oxygen supplementation BiPAP as needed Will try to wean down oxygen requirement Continue home medications-Titrate as needed echocardiogram-results pending Cardiology consult NSTEMI possibly type II due to CHF exacerbation Will trend cardiac enzymes Will monitor telemetry Started on aspirin and statin EKG did not show any acute changes suggestive of ischemia Patient denies any chest pain COPD exacerbation Right Pleural effusion Continuous telemetry Continue bronchodilators Oxygen supplementation Continue IV antibiotic Chest x-ray findings noted Right Throacentesis scheduled for Thursday (12/05) Hypertension Antihypertensives titrated Continue home medications and titrate as needed Hyperlipidemia Continue statin DVT ppx heparin Full code LOS 3 days Time Spent Managing Pts Care (In Minutes): 35 <Bozena Middleton - Last Filed: 12/02/24 17:20> Chart has been reviewed. Events of the last 24 hours have been noted. Case discussed with DORA. I performed a substantial part of the MDM during this patient's care today. I personally made or approved the documented management plan and acknowledge its risk of complications. I agree with the findings and documentation provided in the DORA's notes <Elana Loera - Last Filed: 12/07/24 04:15>
[2024-12-03] MEDS: OXYBUTYNIN ER 5 MG TAB PO SCH (10:24)
[2024-12-03] MEDS: ALBUTEROL 2.5 MG/3 ML NEB SOL NEB PRN (12:41)
[2024-12-03] MEDS: IPRATROPIUM BROM 0.5MG/2.5ML NEB PRN (12:41)
[2024-12-05 06:45] LABS: Absolute Eosinophils 0.2 K/uL (0-0.5); Absolute Lymphocytes (CBC) 0.9 K/uL (0.7-4.9); Absolute Monocytes 0.9 K/uL (0.1-1.3); Basophils % 0.4 % (0-1.3); Eosinophils % 2.1 % (0-4.4); Hematocrit 30.7 % (36.0-45.0); Hemoglobin 9.8 g/dL (12.0-15.0); Lymphocytes % 10.8 % (15.3-44.8); MCH 21.9 pg (27.0-35.0); MCV 68.4 fL (80-100); MPV 9.8 fL (7.6-11.3); Monocytes % 10.8 % (3.3-12.3); Neutrophils % 75.9 % (41.7-73.7); Nucleated Red Blood Cells % 0.1 % (0-0); Platelets 347 thou/uL (152-406); RBC Red Blood Cell Count 4.49 M/uL (3.86-4.86); Red Cell Distribution Width 17.3 % (12.1-15.2)
[2024-12-05 06:55] LABS: ALT/SGPT 17 U/L (13-56); Albumin 2.7 g/dL (3.4-5.0); Albumin/Globulin Ratio 0.8 (1.1-1.8); Alkaline Phosphatase 87 U/L (45-117); Anion Gap 7.6 mEq/L (5.0-15.0); BUN Blood Urea Nitrogen 59 mg/dL (7-18); Bicarbonate 33 mEq/L (21-32); Bilirubin Total 0.5 mg/dL (0.2-1.0); Globulin 3.3 g/dL (2.3-3.5); Glomerular Filtration Rate 64 ml/min (=/>90); Glucose Level 134 mg/dL (74-106); Potassium 3.6 mEq/L (3.5-5.1); Sodium Level 135 mEq/L (136-145)
[2024-12-05 07:08] LABS: AST/SGOT < 10 U/L (15-37)
[2024-12-05 07:20] VITALS: BMI 18.5
--- NOTE | 2024-12-05 08:33 | RAD REPORT ---
EXAM: Chest Single View HISTORY: 89 years Female POST THORACENTESIS COMPARISON: 11/30/2024 FINDINGS: LUNGS/PLEURA: Status post right-sided thoracentesis with improved aeration of the right lung. No pneu mothorax. Small left pleural effusion. Improved pulmonary edema. CARDIAC/MEDIASTINUM: Stable enlargement. UPPER ABDOMEN: No significant abnormality. BONES: No acute abnormality. LINES/TUBES/OTHER: Portacath. IMPRESSION: Interval right-sided thoracentesis with decreased right pleural effusion. No pneumothorax. Mild impro delvin pulmonary edema.
[2024-12-05 08:58] LABS: Anisocytosis 1+; Blood Morphology Comment NOTED (NOT SEEN); Hypochromasia 1+; Microcytosis 1+; Platelet Estimate ADEQ; White Blood Cell Scan OK (OK)
[2024-12-05 08:59] LABS: Ovalocytes SLIGHT
--- NOTE | 2024-12-05 09:24 | ECHO ---
HEIGHT: 5 ft 4 in WEIGHT: 108 lb 0 oz DATE OF STUDY: 12/02/[address]: Manoj Bloom DO 2-DIMENSIONAL: YES M.MODE: YES DOPPLER: YES COLOR FLOW: YES TDS: PORTABLE: YES DEFINITY: BUBBLE STUDY: DIAGNOSIS: CONGESTIVE HEART FAILURE CARDIAC HISTORY: CATHERIZATION: YES SURGERY: YES PROSTHETIC VALVE: YES PACEMAKER: NO MEASUREMENTS (cm) DIASTOLIC (NORMALS) SYSTOLIC (NORMALS) IVSd 1.1 (0.6-1.2) LA Diam 3.3 (1.9-4.0) LVEF 25-30% LVIDd 4.1 (3.5-5.7) LVIDs 3.6 (2.0-3.5) %FS 12% LVPWd 1.2 (0.6-1.2) Ao Diam 2.5 (2.0-3.7) 2 DIMENSIONAL ASSESSMENT: RIGHT ATRIUM: NORMAL LEFT ATRIUM: ENLARGED RIGHT VENTRICLE: NORMAL LEFT VENTRICLE: DEPRESSED EJECTION FRACTION TRICUSPID VALVE: MODERATE TRICUSPID REGURGITATION MITRAL VALVE: MILD MITRAL REGURGITATION PULMONIC VALVE: NORMAL AORTIC VALVE: HEAVILY CALCIFIED, BIOPROSTHETIC PERICARDIAL EFFUSION: NONE AORTIC ROOT: NORMAL LEFT VENTRICULAR WALL MOTION: SEVERE GLOBAL HYPOKINESIS DOPPLER/COLOR FLOW: SEE BELOW COMMENTS: 1. SEVERELY DEPRESED LEFT VENTRICULAR EJECTION FRACTION 25-30% 2. SEVERE GLOBAL HYPOKINESIS 3. LEFT ATRIAL ENLARGEMENT 4. SEVERE PULMONARY HYPERTENSION WITH RIGHT VENTRICULAR SYSTOLIC PRESSURE GREATER THAN 80 mmHg 5. BIOPROSTHETIC AORTIC VALVE WITH HIGH GRADIENT (MEAN GRADIENT 42 mmHg) 6. CONSIDER VALVE STENOSIS TECHNOLOGIST: EMILY MADRIGAL
--- NOTE | 2024-12-05 10:20 | P.PN ---
Subjective Date of Service: 12/05/24 Chief Complaint: SOB Subjective: No new changes, No C/O voiced, Tolerating diet, Ambulating, Improving Review of Systems 10-point ROS is otherwise unremarkable Physical Examination - Vital Signs Temperature: 98.0 F Blood Pressure: 107/55 Pulse: 86 Respirations: 18 Pulse Ox (%): 96 - Physical Exam General: Alert, In no apparent distress HEENT: Atraumatic, PERRLA, EOMI Neck: Supple, JVD not distended Respiratory: Clear to auscultation bilaterally, Normal air movement Cardiovascular: Regular rate/rhythm, Normal S1 S2 Gastrointestinal: Normal bowel sounds, No tenderness Musculoskeletal: No tenderness Integumentary: No rashes Neurological: Normal speech, Normal tone, Normal affect Lymphatics: No axilla or inguinal lymphadenopathy - Studies Medications List Reviewed: Yes Assessment And Plan - Current Problems (Diagnosis) (1) Acute on chronic diastolic heart failure Current Visit: Yes Status: Acute Plan: Patient repeated echo shows drop in EF stop Diltazem start Toprol XL 25 mg daily keep losartan and Chlorothalidone on hold continue lasix 20 mg IV BID continue to monitor input and output and electrolytes. (2) Atrial fibrillation Current Visit: No Status: Acute Plan: Patient currently in sinus rhythm stop dilatzem start Toprol XL 25 mg daily ASA 81 mg daily continue to monitor on tele (3) History of transcatheter aortic valve implantation (WILLIAM) Current Visit: No Status: Acute Plan: Patient echo shows severe stenosis of Bioprosthetic valve, will try to get more informations about what kind of valve she got, patient might need a PENG to better evaluate etiology. (4) NSTEMI (non-ST elevated myocardial infarction) Current Visit: Yes Status: Acute Plan: patient had a leak on enzymes, stable with no significant delta, patient had a coronary angiogram done in 2022 that shown normal coronaries most likely type 2 [place], ASA 81 mg daily Lipitor 20 mg daily (5) Pulmonary hypertension Current Visit: Yes Status: Acute Plan: severe with RVSP > 60 mmHg continue diuresis add Aldactone 25 mg daily patient might need to be discharged on home oxygen, suggest 6 min walking test.
--- NOTE | 2024-12-05 10:34 | RAD REPORT ---
PROCEDURE: ULTRASOUND GUIDED THORACENTESIS CLINICAL INDICATION: [facility] right thoracentesis PROCEDURE DETAILS: Consent: Informed consent for the procedure including risks, benefits and alternatives was obtained a nd time-out was performed prior to the procedure. Preparation: The site was prepared and draped using maximal sterile barrier technique including cutan eous antisepsis. Procedure: Initial limited thoracic ultrasound was performed and a large pleural effusion was seen. A safe window for thoracentesis was identified with ultrasound to nish a suitable access site. Local anesthesia was administered. The pleural cavity was accessed, and fluid return confirmed position. A 5F Yueh catheter was placed and fluid was drained. The catheter was removed, and a sterile bandage was applied. . Estimated blood loss: Less than 10 mL. IMPRESSION: RIGHT ultrasound guided thoracentesis, yielding 900 mL of straw-colored fluid. Additional procedure(s): Limited thoracic ultrasound. PLAN: Aspirated fluid was sent for analysis.
[2024-12-05 12:20] LABS: Appearance CLEAR (CLEAR); Body Fluid Source PLEURAL; Body Fluid WBC 248 /mm^3; Color of fluid Yellow (COLORLESS); Fluid Total Cells Count 100; Tube # SINGLE
[2024-12-05 12:21] LABS: Body Fluid Lymphocytes 69 %
[2024-12-05 12:42] VITALS: O2SAT 100
--- NOTE | 2024-12-05 13:05 | RAD REPORT ---
EXAMINATION: Chest Single View VIEWS: One view CLINICAL INDICATION: Female, 89 years old. chest pain and Shotness of breath COMPARISON: 4 hours prior IMPRESSION: No pneumothorax. No significant change in aeration of the lungs compared with the same day chest radi ograph. Small bilateral pleural effusions and similar background of pulmonary edema.
[2024-12-05 13:42] VITALS: BP 111/66; TEMP 98.1
[2024-12-05] MEDS: HYDROCODONE/APAP 5/325 MG TAB PO PRN (15:11)
--- NOTE | 2024-12-07 04:14 | P.PN ---
Subjective Date of Service: 12/03/24 Patient is doing well. Holding discharge until after patient gets thoracentesis. Otherwise, patient has no new complaints. Cardiology to evaluate the patient as well. Review of Systems 10-point ROS is otherwise unremarkable Physical Examination - Vital Signs Temperature: 98.1 F Blood Pressure: 111/66 Pulse: 89 Respirations: 18 Pulse Ox (%): 100 - Physical Exam General: Alert, In no apparent distress, Oriented x3 Respiratory: Diminished, Crackles/rales Cardiovascular: Regular rate/rhythm, Normal S1 S2, Systolic murmur Gastrointestinal: Normal bowel sounds, Soft and benign, Non-distended, No te nderness Musculoskeletal: No clubbing, No swelling, No tenderness Neurological: Sensation intact, Cranial nerves 3-12 intact - Studies Medications List Reviewed: Yes Assessment & Plan - Problems (Diagnosis) (1) Acute on chronic diastolic heart failure Status: Acute (2) NSTEMI (non-ST elevated myocardial infarction) Status: Acute (3) Pleural effusion Status: Acute (4) Atrial fibrillation Status: Acute (5) Presence of Watchman left atrial appendage closure device Status: Acute (6) History of bladder cancer Status: Acute (7) Pulmonary hypertension Status: Acute - Plan Plan: 1. Patient with bilateral pleural effusion; right greater than left-awaiting for thoracentesis. Most likely transudative. Patient afebrile and no pleuritic chest pain. 2. Heart failure with type II myocardial infarction; echo results pending. Continue with gentle diuresing as patient can tolerate per her blood pressure is on the low side and we will continue to monitor. Continue with antiplatelet therapy and statin therapy. Recent cardiac catheterization with normal coronaries. No further intervention at this time. 3. Atrial fibrillation; continue with medication for rate control and anticoagulation is on hold 4. Generalized weakness; continue with physical therapy and awaiting for inpatient rehab placement 5. GI and DVT prophylaxis Discharge Plan: Other Plan to discharge in: 48 Hours - Advance Directives Does patient have a Living Will: Yes Does patient have a Durable POA for Healthcare: Yes - Code Status/Comfort Care Code Status: Full Code Critical Care: No Time Spent Managing PTS Care (In Minutes): 30
--- NOTE | 2024-12-07 04:17 | P.PN ---
Date of Service: 12/04/24 Subjective Patient is doing well with no new complaints. Occasional shortness of breath but this waxes and wanes. Physical Examination - Vital Signs Reviewed - Physical Exam General: Alert, In no apparent distress, Oriented x3 Respiratory: Diminished, Crackles/rales Cardiovascular: Regular rate/rhythm, Normal S1 S2, Systolic murmur Gastrointestinal: Normal bowel sounds, Soft and benign, Non-distended, No tenderness Musculoskeletal: No clubbing, No swelling, No tenderness Neurological: No focal deficits Assessment & Plan - Problems (Diagnosis) (1) Acute on chronic diastolic heart failure Status: Acute (2) NSTEMI (non-ST elevated myocardial infarction) Status: Acute (3) Pleural effusion Status: Acute (4) Atrial fibrillation Status: Acute (5) Presence of Watchman left atrial appendage closure device Status: Acute (6) History of bladder cancer Status: Acute (7) Pulmonary hypertension Status: Acute - Plan Continue with plan of care as mentioned below: 1. Patient with bilateral pleural effusion; right greater than left-awaiting for thoracentesis. Most likely transudative. Patient afebrile and no pleuritic chest pain. 2. Heart failure with type II myocardial infarction; echo results pending. Continue with gentle diuresing as patient can tolerate per her blood pressure is on the low side and we will continue to monitor. Continue with antiplatelet therapy and statin therapy. Recent cardiac catheterization with normal coronaries. No further intervention at this time. 3. Atrial fibrillation; continue with medication for rate control and anticoagulation is on hold 4. Generalized weakness; continue with physical therapy and awaiting for inpatient rehab placement 5. GI and DVT prophylaxis Discharge Plan: Other Plan to discharge in: 48 Hours - Advance Directives Does patient have a Living Will: Yes Does patient have a Durable POA for Healthcare: Yes - Code Status/Comfort Care Code Status: Full Code Critical Care: No Time Spent Managing PTS Care (In Minutes): 30
--- NOTE | 2024-12-07 04:21 | P.DS ---
Discharge Date: 12/05/24 Disposition: TRANSFER TO INPATIENT REHAB Discharge Condition: GOOD Reason for Admission: SOB Consultations: CARDIOLOGY - Problems (1) Acute on chronic diastolic heart failure Status: Acute (2) NSTEMI (non-ST elevated myocardial infarction) Status: Acute (3) Pleural effusion Status: Acute (4) Atrial fibrillation Status: Acute (5) Presence of Watchman left atrial appendage closure device Status: Acute (6) History of bladder cancer Status: Acute (7) Pulmonary hypertension Status: Acute Brief History of Present Illness: Patient is an 89 yrs old Female with past medical history of hypertension, hyperlipidemia, history of breast cancer, status post mastectomy brought to ER with shortness of breath. Patient also complains of cough, difficulty breathing, flu symptoms, arthralgias, low-grade fever, myalgias, no appetite. Patient denies any chest pain . Denies any nausea or vomiting. Has subjective fever. Patient has been increasingly short of breath and was brought to ER. Patient was assessed in the ER and was admitted for further management of CHF exacerbation. Hospital Course: Patient was diuresed and her clinical symptoms improved during hospital stay. She was participating with physical therapy. She lives at home by herself but she does have family that lives close by. She has also had echocardiogram that was just read which shows a decreased ejection fraction 30%. Patient had a thoracentesis and 700 800 cc of fluid removed from the right lung which was a transudative fluid. Spoke with cardiology and patient does have severe aortic stenosis but they said patient could be monitored and followed outpatient for further evaluation for TAVR's. Patient has had a watchman for her atrial fibrillation. Can hold off on anticoagulation. Overall patient needs to strengthen herself and will work on increasing her physical activity and inpatient rehab. After inpatient rehab she is advised to follow with cardiology for further recommendations. Continue with diuresing at discharge. Vital Signs/Physical Exam: Temp Pulse Resp BP Pulse Ox 98.1 F 89 18 111/66 100 12/07/24 04:15 12/07/24 04:15 12/07/24 04:15 12/07/24 04:15 12/07/24 04:15 General: Alert, In no apparent distress, Oriented x3 Laboratory Data at Discharge: WBC 7.90 thou/uL (4.3-10.9) 12/05/24 05:16 Hgb 9.8 g/dL (12.0-15.0) L 12/05/24 05:16 Hct 30.7 % (36.0-45.0) L 12/05/24 05:16 Plt Count 347 thou/uL (152-406) 12/05/24 05:16 PT 12.7 SECONDS (10-13.0) 11/30/24 21:12 INR 1.12 11/30/24 21:12 Sodium 135 mEq/L (136-145) L 12/05/24 05:16 Potassium 3.6 mEq/L (3.5-5.1) 12/05/24 05:16 BUN 59 mg/dL (7-18) H 12/05/24 05:16 Creatinine 0.87 mg/dL (0.55-1.02) 12/05/24 05:16 Glucose 134 mg/dL (74-106) H 12/05/24 05:16 Magnesium 2.5 mg/dL (1.6-2.4) H 11/30/24 21:12 Total Bilirubin 0.5 mg/dL (0.2-1.0) 12/05/24 05:16 AST < 10 U/L (15-37) L 12/05/24 05:16 ALT 17 U/L (13-56) 12/05/24 05:16 Alkaline Phosphatase 87 U/L (45-117) 12/05/24 05:16 Home Medications: Aspirin 81 mg PO DAILY 02/26/18 Gabapentin [Gralise] 300 mg PO BEDTIME 02/26/18 dilTIAZem HCL [Diltiazem 24Hr ER ([place])] 180 mg PO DAILY 05/31/18 Losartan Potassium 50 mg PO BEDTIME 06/22/20 Simvastatin 40 mg PO BEDTIME 07/21/22 Citalopram [Celexa*] 10 mg PO DAILY 02/18/24 Magnesium Oxide [Mag 0X*] 400 mg PO BID tab 08/04/24 Potassium Oral Tab [Klor-Con 10 mEq Tab*] 10 meq PO BID #60 tab 08/04/24 Ascorbic Acid [Vitamin C*] 500 mg PO BEDTIME 12/01/24 Cholecalciferol (Vitamin D3) [Vitamin D3] 1 tab PO DAILY 12/01/24 Albuterol Neb [Proventil 0.083% Neb Soln] 2.5 mg NEB Q6HP PRN amp 12/05/24 Furosemide [Lasix] 20 mg PO BIDL #60 tab 12/05/24 Hydrocodone 5/APAP 325 [[place] 5/325*] 1 tab PO Q6H PRN #0 tab 12/05/24 Ipratropium Neb [Atrovent*] 0.5 mg NEB [id number] PRN amp 12/05/24 Ronny [Ronny*] 1 pkt PO BID 12/05/24 oxyBUTYnin chloride [Ditropan Xl*] 15 mg PO DAILY tab.sa 12/05/24 Vibegron [Gemtesa] 75 mg PO DAILY 12/06/24 New Medications: Furosemide [Lasix] 20 mg PO BIDL #60 tab Physician Discharge Instructions: -DC IV and DC to inpatient rehab -Follow-up with PCP in 1 to 2 weeks -Follow-up with Cardiology in 1 to 2 weeks -Please call Dr. Loera at [phone] if any questions regarding hospital stay -Please call nursing station at [phone] if any nursing or medication questions -Return to the emergency room if symptoms worsen Diet: AHA Activity: Fall precautions Followup: Mike Joya, DO [Primary Care Provider] - 1-2 Weeks Time spent managing pt's care (in minutes): 35
--- NOTE | 2024-12-07 13:04 | EKG ---
Test Date: 2024-11-30 Test Time: 20:34:09 Avionics Shop Supervisor: LEANN MEASUREMENT RESULTS: Intervals: Rate: 80 [place]: 168 QRSD: 140 QT: 426 QTc: 491 [place]: P: 25 [place]: 168 QRS: -39 T: 91 INTERPRETIVE STATEMENTS: Normal sinus rhythm Left axis deviation Left bundle branch block Abnormal ECG Compared to ECG 08/08/2024 14:37:05 Left-axis deviation now present Electronically Signed On 12-07-24 12:45:44 CDT by Kendrick Shepard
[2024-12-07 20:09] LABS: LD, PLEURAL FLUID 78 U/L; TOTAL PROTEIN, PLEURAL FLUID <3.0 g/dL
[2024-12-08 22:18] LABS: ALBUMIN, PLEURAL FLUID 1.3 g/dL
== END 2024-12-05 15:30 | DRG 280 ==
LOC: ER 20:26 → ERHOLD 22:50 → 4TH 12-01 03:13
PROVIDERS: ADMIT Family Medicine; ATTEND Hospitalist
PROC: 0W993ZZ Drainage of Right Pleural Cavity, Percutaneous Approach (ICD-10-PCS; principal; 2024-12-05)
PROC: 5A09557 Assistance with Respiratory Ventilation, Greater than 96 Consecutive Hours, Continuous Positive Airway Pressure (ICD-10-PCS; 2024-12-05)
DX: I11.0 Hypertensive heart disease with heart failure (principal); I50.33 Acute on chronic diastolic (congestive) heart failure; I21.A1 Myocardial infarction type 2; J44.1 Chronic obstructive pulmonary disease with (acute) exacerbation; I48.91 Unspecified atrial fibrillation; I27.20 Pulmonary hypertension, unspecified; E78.5 Hyperlipidemia, unspecified; I25.2 Old myocardial infarction; I25.10 Atherosclerotic heart disease of native coronary artery without angina pectoris; Z85.3 Personal history of malignant neoplasm of breast; Z11.52 Encounter for screening for COVID-19; Z79.82 Long term (current) use of aspirin; Z90.13 Acquired absence of bilateral breasts and nipples; Z79.899 Other long term (current) drug therapy; Z87.891 Personal history of nicotine dependence
CPT/HCPCS: 32555; 36415; 71045; 71275; 80048; 80053; 80076; 81001; 82042; 82945; 83605; 83615; 83735; 83880; 84157; 84484; 85025; 85379; 85610; 86140; 87040; 87070; 87086; 87088; 87428; 89050; 93005; 93306; 94640; 94660; 94760; 96365; 96367; 96375; 97161; 97530; 99285; J0696; J1644; J1938; J2919; J7050; J7613; J7614; J7644; Q9967

== ENCOUNTER 2024-12-05 15:27 | Inpatient (IN) | payer OTHER ==
[2024-12-05 16:11] VITALS: BMI 19.5
[2024-12-05] MEDS ORDERED: HYDROCODONE/APAP 5/325 MG TAB PO PRN (16:29)
[2024-12-05] MEDS: FUROSEMIDE 20 MG TABLET PO SCH (17:20)
[2024-12-05] MEDS: JUVEN PACKET PO SCH (20:00)
[2024-12-05 20:15] LABS: Specific Gravity 1.013 (1.005-1.030); Sqamous Epithelial <5 /HPF (None Seen); Urine Bacteria <20 /HPF (<20); Urine Bilirubin NEGATIVE (Negative); Urine Blood Negative (Negative); Urine Clarity Turbid (Clear); Urine Color Light-Yellow (Yellow); Urine Crystals Unidentified Few /HPF (None Seen); Urine Glucose NEGATIVE (Negative); Urine Ketones NEGATIVE (Negative); Urine Micro Reflex YN NO BILL MICROSCOPIC; Urine Nitrite NEGATIVE (Negative); Urine Protein NEGATIVE (Negative); Urine RBC <5 /HPF (None Seen); Urine Urobilinogen Normal (Normal); Urine WBC <5 /HPF (<5); Urine pH 5.5 (5.0-7.0)
[2024-12-05] MEDS: ATORVASTATIN 20 MG TAB PO SCH (20:42)
[2024-12-05] MEDS: MELATONIN 5 MG TABLET PO SCH (20:43)
[2024-12-05] MEDS: APIXABAN 2.5 MG TABLET PO SCH (20:43)
[2024-12-05] MEDS: LOSARTAN POTASSIUM 50 MG TABLET PO SCH (20:43)
[2024-12-05] MEDS: POTASSIUM CL SA 10 MEQ TAB PO SCH (20:43)
[2024-12-05] MEDS: GABAPENTIN 300 MG CAP PO SCH (20:43)
[2024-12-05] MEDS: MAGNESIUM OXIDE 400 MG TAB PO SCH (20:43)
[2024-12-06 05:01] LABS: Absolute Eosinophils 0.2 K/uL (0-0.5); Absolute Lymphocytes (CBC) 0.7 K/uL (0.7-4.9); Absolute Monocytes 0.9 K/uL (0.1-1.3); Absolute Neutrophil 6.3 K/uL (1.8-8.0); Basophils % 0.4 % (0-1.3); Eosinophils % 2.2 % (0-4.4); Hematocrit 28.6 % (36.0-45.0); Hemoglobin 9.1 g/dL (12.0-15.0); Lymphocytes % 8.1 % (15.3-44.8); MCH 21.7 pg (27.0-35.0); MCV 67.9 fL (80-100); MPV 9.6 fL (7.6-11.3); Monocytes % 11.3 % (3.3-12.3); Nucleated Red Blood Cells % 0.1 % (0-0); Platelets 279 thou/uL (152-406); RBC Red Blood Cell Count 4.21 M/uL (3.86-4.86); Red Cell Distribution Width 17.3 % (12.1-15.2)
[2024-12-06 05:44] LABS: Albumin 2.4 g/dL (3.4-5.0); Anion Gap 4.9 mEq/L (5.0-15.0); Blood Morphology Comment NOTED (NOT SEEN); Hypochromasia 1+; Magnesium 1.9 mg/dL (1.6-2.4); Microcytosis 2+; Platelet Estimate ADEQ; Potassium 3.9 mEq/L (3.5-5.1); Prealbumin 11.9 mg/dL (20-40); White Blood Cell Scan OK (OK)
[2024-12-06 05:47] LABS: Troponin High Sensitivity 616.6 pg/mL (<58.9)
[2024-12-06] MEDS ORDERED: CRANBERRY FRUIT EXTRACT 425 MG CAPSULE PO SCH (08:00)
[2024-12-06] MEDS: DILTIAZEM HCL 180 MG SR CAP PO SCH (08:00)
[2024-12-06] MEDS: GEMTESA 75 MG PO SCH (08:00)
[2024-12-06] MEDS: ASPIRIN 81 MG CHEWABLE TABLET PO SCH (08:33)
[2024-12-06] MEDS: OXYBUTYNIN ER 5 MG TAB PO SCH (08:33)
[2024-12-06] MEDS: VITAMIN D 1000 UNIT TAB PO SCH (08:34)
[2024-12-06] MEDS: CITALOPRAM 10 MG TABLET PO SCH (08:34)
[2024-12-06] MEDS: CRANBERRY FRUIT EXTRACT 425 MG CAPSULE PO SCH (08:40)
[2024-12-06] MEDS: ASCORBIC ACID 500 MG TABLET PO SCH (08:41)
--- NOTE | 2024-12-06 09:24 | RAD REPORT ---
EXAMINATION: ONE VIEW CHEST XR CLINICAL INDICATION: Female, 89 years old.,s/p thoracentsis TECHNIQUE: Frontal chest projection is submitted. Examination is limited by patient positioning and t echnique. COMPARISON: 12/05/2024 FINDINGS: No pneumothorax. Improvement of aeration at the left base. Residual central interstitial prominence a nd right basilar opacification which may partially relate to atelectasis given right hemidiaphragm elevation, stable. Stable cardiomegaly. Mediastinal contours are unremarkable. IMPRESSION: Interval reduction of left pleural effusion and adjacent atelectasis. No pneumothorax. Other stable findings suggesting central congestion or pulmonary edema.
[2024-12-06] MEDS: MIDODRINE HCL 5 MG TABLET PO SCH ×2 (11:04→21:35)
[2024-12-06] MEDS: ACETAMINOPHEN 500 MG TAB PO PRN (11:04)
[2024-12-06] MEDS: ONDANSETRON 4 MG (ODT) TAB PO PRN (11:17)
--- NOTE | 2024-12-06 12:27 | P.CNS ---
Date of Consult: 12/06/24 Chief Complaint: elevated troponin History of Present Illness: Patient with PMH of AF s/p watchman, s/p WILLIAM in 2019 in [facility], , cardiology were consulted for elevated troponin, patient denies chest pain, report back pain at pleurocentesis site, no other cardiac symptoms. Allergies No Known Allergies Allergy (Verified 07/27/24 14:29) Home medications list reviewed: Yes Home Medications: Aspirin 81 mg PO DAILY 02/26/18 Gabapentin [Gralise] 300 mg PO BEDTIME 02/26/18 dilTIAZem HCL [Diltiazem 24Hr ER (LA)] 180 mg PO DAILY 05/31/18 Losartan Potassium 50 mg PO BEDTIME 06/22/20 Simvastatin 40 mg PO BEDTIME 07/21/22 Citalopram [Celexa*] 10 mg PO DAILY 02/18/24 Magnesium Oxide [Mag 0X*] 400 mg PO BID tab 08/04/24 Potassium Oral Tab [Klor-Con 10 mEq Tab*] 10 meq PO BID #60 tab 08/04/24 Ascorbic Acid [Vitamin C*] 500 mg PO BEDTIME 12/01/24 Cholecalciferol (Vitamin D3) [Vitamin D3] 1 tab PO DAILY 12/01/24 Albuterol Neb [Proventil 0.083% Neb Soln] 2.5 mg NEB Q6HP PRN amp 12/05/24 Furosemide [Lasix] 20 mg PO BIDL #60 tab 12/05/24 Hydrocodone 5/APAP 325 [[place] 5/325*] 1 tab PO Q6H PRN #0 tab 12/05/24 Ipratropium Neb [Atrovent*] 0.5 mg NEB Q4LJHCO PRN amp 12/05/24 Ronny [Ronny*] 1 pkt PO BID 12/05/24 oxyBUTYnin chloride [Ditropan Xl*] 15 mg PO DAILY tab.sa 12/05/24 Vibegron [Gemtesa] 75 mg PO DAILY 12/06/24 - Past Medical/Surgical History Diabetic: No -: Hypertension -: CAD -: Diastolic CHF with reduced EF -: Peripheral vascular disease -: Former smoker -: Breast cancer -: HLD -: dm -: afib -: [place] -: bilateral mastectomy -: WATCHMAN - Social History Alcohol use: No CD- Drugs: No Caffeine use: Yes Place of Residence: Home Review of Systems 10-point ROS is otherwise unremarkable Physical Examination Temp Pulse Resp BP Pulse Ox 97.2 F 79 20 94/47 L 100 12/06/24 06:30 12/06/24 08:55 12/06/24 06:30 12/06/24 08:55 12/06/24 06:30 General: Alert, In no apparent distress HEENT: Atraumatic, PERRLA, Mucous membr. moist/pink, EOMI, Sclerae nonicteric Neck: Supple, 2+ carotid pulse no bruit, No LAD, Without JVD or thyroid abnormality Respiratory: Clear to auscultation bilaterally, Normal air movement Cardiovascular: Regular rate/rhythm, Normal S1 S2 Gastrointestinal: Normal bowel sounds, No tenderness Musculoskeletal: No tenderness Integumentary: No rashes Neurological: Normal gait, Normal speech, Normal tone, Normal affect Lymphatics: No axilla or inguinal lymphadenopathy Laboratory Data (last 24 hrs) 12/06/24 12/06/24 04:44 04:44 WBC 8.10 Hgb 9.1 L Hct 28.6 L Plt Count 279 Sodium 136 Potassium 3.9 BUN 57 H Creatinine 0.83 Glucose 144 H Magnesium 1.9 - Problems (1) Acute on chronic diastolic heart failure Current Visit: No Status: Acute Plan: continue Toprol XL 25 mg daily lower losartan to 25 mg daily due to soft BP continue lasix 20 mg daily (2) Atrial fibrillation Current Visit: No Status: Acute Plan: patient is s/p watchman procedure continue ASA 81 mg daily D/C Eliquis if it was started for AF. (3) NSTEMI (non-ST elevated myocardial infarction) Current Visit: No Status: Acute Plan: Type 2 [place] as patient had a coronary angiogram done in 2022 that shown normal coronaries. continue to trend troponin until peak and down trending continue ASA 81 mg daily continue Lipitor 20 mg daily continue Toprol XL 25 mg daily (4) History of transcatheter aortic valve implantation (WILLIAM) Current Visit: No Status: Acute Plan: Echo shows high gradient across bioprosthetic valve. outpatient evaluation for valve in valve.
--- NOTE | 2024-12-06 12:42 | HP ---
Date of Admission: 12/05/2024 Time Of Service: 9 a.m. Chief Complaint: "I need to get stronger, my lungs are not working well." History Of Present Illness: Ms. Keller is an 89-year-old patient with hypertension, diastolic congest natalie heart failure, coronary artery disease, reduced ejection fraction, peripheral vascular disease, f ormer smoker, breast cancer, dyslipidemia, diabetes mellitus, atrial fibrillation, who came to the [facility] with worsening shortness of breath. She was diagnosed with chronic congestive heart failure, both systolic and diastolic type 2, dhv-DM-mjboyhu myocardial infarction, COPD exacerbation along wit h hypertension, dyslipidemia, pulmonary hypertension, right pleural effusion, and atrial fibrillation . She was put on telemetry service monitoring for atrial fibrillation and heart rhythm. She had agg ressive diuresis, supplemental oxygenation, and BiPAP. She was seen by the Cardiology Service and Pu lmonary Service and received IV antibiotics. The pleural effusion was addressed by right-sided thora centesis. She did have fluid restriction from addressing also of volume overload. She was oxygen de pendent. In addition, the abnormalities include elevated BUN, glucose, and glomerular filtration rat e decreasing. She was evaluated by the Therapy Service and found to be significantly deconditioned w ith significant shortness of breath on any attempts to ambulate. She requires moderate assistance fo r bed mobilization, transferring, and to perform activities of daily living. Previously, she was ind ependent ambulating with a walker without restriction, taking care of her activities of daily living independently. At this point, she is now found to be a good candidate for aggressive inpatient rehab ilitation, so she can return towards her prior level of functioning and reduce risk of rehospitalizat ion while her comorbid conditions are managed. Past Medical History: Include hypertension, coronary artery disease, diastolic congestive heart fail ure, peripheral vascular disease, breast cancer, dyslipidemia, diabetes mellitus, atrial fibrillation . Past Surgical History: Bilateral mastectomy, Watchman procedure, she had transcatheter aortic valve replacement. Allergies: NO KNOWN DRUG ALLERGIES. X-ray/imaging: Most recent x-ray done earlier today did show compared to a prior study done on 11/30, interval reduction in the left pleural effusion and adjacent atelectasis without pneumothorax. There is otherwise stable findings suggesting central congestion or pulmonary edema. The study on 11/30 also showed aqyx-vv-[id number] pulmonary opacities, more in appearance of pulmonary edema than pn eumonia. CT angiogram on 11/30 shows diagnostic angiogram without findings suggesting a pulmonary ar brady embolus. There is a large right and small to moderate left clearing pleural effusion, also patc hy airspace opacification bilateral lower lobes secondary to subsegmental atelectasis versus consolid ation. There is emphysema, large hiatal hernia, and a chest x-ray on 12/05 shows interval right-side d thoracentesis with decreased right pleural effusion. No pneumothorax. Mildly improved pulmonary e oleg. Medications: Tylenol 500 mg every 4 hours as needed, [place] 5/325 every 6 hours as needed, albuterol nebulizer 2.5 mg every 6 hours, Eliquis 2.5 mg twice daily, vitamin C 500 mg daily, aspirin 81 mg reji ly, Lipitor 20 mg at bedtime, vitamin D 1000 units daily, Celexa 10 mg daily, diltiazem 180 mg daily, Lasix 20 mg daily, gabapentin 300 mg at bedtime, Ronny 1 packet twice daily, Cozaar 50 mg at bedtime , magnesium oxide 400 mg twice daily, melatonin 5 mg at bedtime, midodrine 5 mg at 7 and at noon, Dit ropan 15 mg daily, potassium 10 mEq twice daily. Laboratory Studies: White blood cell count 8.1, hemoglobin 9.1, platelets are 279. Sodium 136, pota ssium 3.9, chloride 99, carbon dioxide 36, BUN 57, creatinine 0.83, glucose 144, calcium 9.1, magnesi um 1.9. Her troponin 1 high is elevated to 616.6, which is elevated prior to the prior study. She a lso had elevated beta-natriuretic peptide of 37,852. Those studies are elevated likely because of he r pulmonary effusion and just having had thoracentesis. However, Cardiology will be consulted to fur ther evaluate the patient. Albumin is 2.5, prealbumin 11.9. Her urinalysis shows turbid clarity, 25 0 esterase. Current Level Of Functioning: Currently, she is at setup assistance level for eating and grooming, m oderate assistance for bathing, upper body dressing is at set up assistance level, supervision for dr simmons lower body and donning and doffing footwear, toileting supervision, transfer from bed to chair to toilet at supervision level. Also ambulation, she requires maximum assistance, nyv-sv-lfhnf carbajal sfer and a rolling walker, not yet ambulated. Family History: Noncontributory. Physical Examination: Vital Signs: Blood pressure is 94/47. She was attempting to go to the bathroom, had significant ort hostasis. She did have abdominal binder placed. CHYNA hose placed, Trendelenburg in place, and she is now on the midodrine. Respiratory rate 16 to 20, temperature is 97.2, oxygen saturation 100%, and p ulse 79. Weight 144 pounds, height 5 feet 4 inches, BMI 19.6. General: Ms. Keller is lying comfortably in bed. She is in no acute distress. She does say the area where she has a dressing over the right-sided thoracentesis is pushing somewhat onto the back and sh e will have an air mattress put on top of that. HEENT: Otherwise, she does appear normocephalic, atraumatic. Sclerae anicteric. Oropharynx moist. Neck: Supple. Chest: Decreased breath sounds bilaterally. Abdomen: Soft. Extremities: Show no significant edema, cyanosis, or clubbing. Neuro: In terms of her examination neurologically, she has no focal neurologic deficits. She has di ffuse weakness in upper and lower extremities approximately around 4 to 5 comparing right to left and she has a mild stocking-glove loss, light touch temperature, and mild decrease in terms of her coord ination. Assessment: Ms. Keller is an 89-year-old patient, admitted to the rehabilitation unit with impairment category 14, cardiac. Her impairment group code is 09, cardiac. Her etiologic diagnosis is acute o n chronic systolic and diastolic congestive heart failure. In addition, right pleural effusion, stat us post thoracentesis with interval improvement. She has pulmonary edema that is also improving with diastolic and systolic congestive heart failure, coronary artery disease, recent myocardial infarcti on, former smoker, diabetes mellitus, dyslipidemia, atrial fibrillation, and she has significant decr eased mobility and decreased physical functioning. Plan: She will have physical, occupational, and speech therapy 3.5 hours, 5 of 7 days. The Cardiolo gy Service is consulted again to help manage the possibility of a repeat myocardial infarction. She does have an EKG on board. However, the elevated parameters on blood work, which are the beta-natriu retic peptide and the troponin 1 are consistent with the patient's recent thoracentesis and significa nt pleural effusion which is just evacuated. She will have a glucose sliding scale, Cozaar, blood pr essure medications will be held if systolic blood pressure is less than 150. She has midodrine on [place] 5 mg twice daily for pressure support, Ditropan for urinary retention, potassium replacement on b oard, gabapentin for neuropathic pain. The diltiazem again also for heart rate control, but may be h eld if systolic blood pressure is less than 115. Celexa for antidepression. She has Lipitor for dys lipidemia. Continue vitamin C as well and Eliquis 2.5 mg twice daily for DVT prophylaxis, [place] for pain, albuterol nebulizer on board for shortness of breath. Comorbid Conditions That Are Impacting Rehabilitation: As noted, she has a recent pleural effusion r equiring thoracentesis. There will be several checks to see if there is reaccumulation of fluid and if she requires additional thoracentesis. She does have fluid restriction on board and it is likely contributing to significant orthostatic hypotension, CHYNA hose, abdominal binder in place. She may nation ve to be gingerly rehydrated to minimize the risk of accumulation of fluid and pulmonary edema. Also , there may be a risk of pulmonary embolus. Currently, she does not have any evidence of pain or swe lling in the calf area and she is on DVT prophylaxis for that. Rehab Specific Plan: Ms. Keller will have physical, occupational, and speech therapy 3.5 hours, 5 of 7 days, to improve her ability to transfer from a bed to a chair, to a wheelchair, to use a walker, t o get on and off the toilet, in and out of the shower, to dress upper and lower body, don and off neeta twear, to manage household distances at least 50 feet, to at least go up and down 10 steps and mobili ze a wheelchair around 250 feet or more. Also she will work with speech to help her with good judgme nt with safety awareness, managing medications, followup, and to be overall safe. Ms. Keller has a good understanding of the process of admission to the inpatient rehabilitation unit a nd how she will benefit from physical, occupational, and speech therapy. She will have 24 hours a da y, 7 days a week skilled rehabilitation and nursing, daily physician evaluation and management, and s ocial services evaluation and management for discharge planning, home equipment, and to continue with therapy after her discharge. She now will also be seen by the Cardiology Service and the [facility] t service. Barriers To Discharge: At the age of 89, with her having thoracentesis recently done and fluid accum ulation, it is possible that the fluid may reaccumulate extending her stay and she may have to go monique to acute care. Those will be further evaluated. Furthermore, previously she was at home independe ntly ambulating with a rolling walker. However, if in the time allotted in inpatient rehabilitation, she is unable to return to that level of functioning, she may have to go to senior care for an e xtended stay. Length Of Stay: About 2 weeks. Disposition: Expected to be home to continue therapy via Home Health and senior care and with melissa esquivel's help. Prognosis: Fair. Code Status: Full code. Rehab Specific Goals: 1. Become independent with upper and lower body dressing, donning and doffing footwear. 2. Independently mobilize household distances, independently go up and down 5 steps, independently pe rform cognitive functioning and safety awareness. Ms. Keller has a good understanding of the process of admission and she is in agreement with what is a ssessed and to be done in rehab. By signing this document, I acknowledge I personally performed a full physical examination on Ms. Albin braun no later than 24 hours after her admission to the inpatient rehabilitation unit and determined maurizio t she is able to tolerate the above course of treatment at an intensive level for a reasonable period of time. A detailed individualized plan of care for her will be completed by hospital day 4 based o n the preadmission screen, history and physical, and therapy evaluations. NESHA/GIANCARLO Voice ID: [id number]
[2024-12-06] MEDS: NA CHLORIDE 0.9% 1,000 ML IV SCH (14:01)
[2024-12-06] MEDS: IPRATROPIUM BROM 0.5MG/2.5ML NEB PRN (14:50)
[2024-12-06] MEDS: ALBUTEROL 2.5 MG/3 ML NEB SOL NEB PRN (14:50)
[2024-12-06 19:08] VITALS: TEMP 98.1
--- NOTE | 2024-12-06 19:49 | RAD REPORT ---
EXAMINATION: ONE VIEW CHEST XR CLINICAL INDICATION: sob TECHNIQUE: Frontal chest projection is submitted. Examination is limited by patient positioning and t echnique. COMPARISON: 12/06/2024 FINDINGS: Moderate bilateral pulmonary opacities are noted appearing progressive since comparison study, partic ularly in the right lower lung. Small right pleural effusion is noted. The heart is moderately enlarged. Right-sided venous catheters tip in SVC. IMPRESSION: Mild to moderate worsening in lung aeration noted particularly in the right lower lobe, since compari son study.
[2024-12-06 20:04] LABS: Absolute Eosinophils 0.1 K/uL (0-0.5); Absolute Lymphocytes (CBC) 0.6 K/uL (0.7-4.9); Absolute Monocytes 1.1 K/uL (0.1-1.3); Absolute Neutrophil 10.9 K/uL (1.8-8.0); Basophils % 0.3 % (0-1.3); Eosinophils % 0.5 % (0-4.4); Hematocrit 30.5 % (36.0-45.0); Hemoglobin 9.6 g/dL (12.0-15.0); Lymphocytes % 4.4 % (15.3-44.8); MCH 21.5 pg (27.0-35.0); MCHC 31.5 g/dL (32.0-36.0); MCV 68.2 fL (80-100); MPV 9.9 fL (7.6-11.3); Monocytes % 8.8 % (3.3-12.3); Nucleated Red Blood Cells % 0.1 % (0-0); Platelets 345 thou/uL (152-406); RBC Red Blood Cell Count 4.47 M/uL (3.86-4.86); Red Cell Distribution Width 17.3 % (12.1-15.2)
[2024-12-06 20:11] LABS: PT Prothrombin Time 15.5 SECONDS (10-13.0); PTT, Activated Partial Thromb 32.2 SECONDS (27.2-37.4); Protime INR 1.38
--- NOTE | 2024-12-06 20:17 | P.CNS ---
Date of Consult: 12/06/24 error
[2024-12-06 20:20] LABS: Albumin 2.4 g/dL (3.4-5.0); Albumin/Globulin Ratio 0.7 (1.1-1.8); Alkaline Phosphatase 92 U/L (45-117); Anion Gap 7.5 mEq/L (5.0-15.0); BUN Blood Urea Nitrogen 77 mg/dL (7-18); Bicarbonate 35 mEq/L (21-32); Bilirubin Total 0.3 mg/dL (0.2-1.0); Globulin 3.3 g/dL (2.3-3.5); Glomerular Filtration Rate 44 ml/min (=/>90); Glucose Level 190 mg/dL (74-106); Lipase 24 U/L (13-75); Potassium 4.5 mEq/L (3.5-5.1); Protein, Total 5.7 g/dL (6.4-8.2); Sodium Level 134 mEq/L (136-145)
[2024-12-06 20:21] LABS: ALT/SGPT < 14 U/L (13-56); AST/SGOT < 10 U/L (15-37); Bilirubin Direct < 0.2 mg/dL (0-0.2); Bilirubin Indirect, Calculated 0.1 mg/dL (0.2-0.8)
[2024-12-06] MEDS: LOSARTAN POTASSIUM 50 MG TABLET PO SCH (21:00)
[2024-12-06] MEDS: Ringers Lactate 500 ML IV ONE (21:34)
[2024-12-06] MEDS: ALBUMIN HUMAN 25% 100 ML IV ONE ×2 (21:54→21:56)
[2024-12-06 22:13] VITALS: BP 95/55
[2024-12-06 22:42] VITALS: O2SAT 100
[2024-12-07 00:30] LABS: Differential Total Cells Count 100; Lymphocytes 3 % (15-42); Monocytes 4 % (0-10); Segmented Neutrophils 93 % (40-80)
[2024-12-07 00:31] LABS: Blood Morphology Comment NOTED (NOT SEEN); Hypochromasia 1+; Microcytosis 2+; Ovalocytes 3+; Platelet Estimate ADEQ
[2024-12-07] MEDS ORDERED: METHYLPREDNISOLONE 40 MG INJ IV SCH (01:00)
[2024-12-07] MEDS ORDERED: IPRATROPIUM BROM 0.5MG/2.5ML NEB SCH (01:00)
[2024-12-07] MEDS ORDERED: ALBUTEROL 2.5 MG/3 ML NEB SOL NEB SCH (01:00)
[2024-12-07] MEDS ORDERED: METOPROLOL XL 25 MG TAB PO SCH ×2 (06:00)
[2024-12-07] MEDS ORDERED: FERROUS SULFATE 325 MG TAB PO SCH (08:00)
[2024-12-07] MEDS ORDERED: CEFEPIME 1 GM in NA CHLORIDE 0.9% 100 ML IV SCH (08:00)
[2024-12-07] MEDS ORDERED: VIBEGRON 75 MG PO SCH (08:00)
[2024-12-07] MEDS ORDERED: AZITHROMYCIN 250 MG TAB PO SCH (08:00)
[2024-12-07] MEDS ORDERED: LIDOCAINE 4% PATCH TOP SCH (08:00)
--- NOTE | 2024-12-07 12:39 | EKG ---
Test Date: 2024-12-06 Test Time: 05:12:25 Nightclub Manager: HARDIK MEASUREMENT RESULTS: Intervals: Rate: 78 NC: 162 QRSD: 148 QT: 420 QTc: 478 [place]: P: 63 NC: 162 QRS: -49 T: 131 INTERPRETIVE STATEMENTS: Normal sinus rhythm Left axis deviation Left bundle branch block Abnormal ECG Compared to ECG 11/30/2024 20:34:09 No significant changes Electronically Signed On 12-07-24 12:36:45 CDT by Kendrick Shepard
== END 2024-12-06 22:15 | disposition short-term general hospital (02) | DRG 291 ==
LOC: 5TH 15:27
PROVIDERS: ADMIT Psychiatry & Neurology Neurology with Special Qualifications in Child Neurology; ATTEND Psychiatry & Neurology Neurology with Special Qualifications in Child Neurology
DX: I11.0 Hypertensive heart disease with heart failure (principal); I50.43 Acute on chronic combined systolic (congestive) and diastolic (congestive) heart failure; R06.02 Shortness of breath; R53.1 Weakness; R68.89 Other general symptoms and signs; R52 Pain, unspecified; J43.9 Emphysema, unspecified; I25.10 Atherosclerotic heart disease of native coronary artery without angina pectoris; I48.91 Unspecified atrial fibrillation; E11.9 Type 2 diabetes mellitus without complications; I95.1 Orthostatic hypotension; I73.9 Peripheral vascular disease, unspecified; E78.5 Hyperlipidemia, unspecified; F32.A Depression, unspecified; K44.9 Diaphragmatic hernia without obstruction or gangrene; I25.2 Old myocardial infarction; Z98.890 Other specified postprocedural states; Z87.891 Personal history of nicotine dependence; Z85.3 Personal history of malignant neoplasm of breast; Z90.13 Acquired absence of bilateral breasts and nipples; Z95.2 Presence of prosthetic heart valve; Z79.82 Long term (current) use of aspirin; Z79.899 Other long term (current) drug therapy
CPT/HCPCS: 36415; 71045; 80048; 80053; 81001; 82040; 82248; 82947; 83605; 83690; 83735; 83880; 84134; 84484; 85025; 85610; 85730; 87040; 92523; 93005; 94640; 97116; 97163; 97165; 97530; J7030; J7120; J7613; J7644; P9047; Q0162

== ENCOUNTER 2024-12-06 20:41 | Inpatient (IN) | payer OTHER ==
--- NOTE | 2024-12-06 20:59 | P.HP ---
Patient History Date of Service: 12/07/24 History of Present Illness: 89-year-old female with a past medical history of A-fib (Watchman device), heart failure with preserved ejection fraction, history of breast cancer status post bilateral mastectomy, COPD, peripheral vascular disease, debility, presenting with cough and shortness of breath secondary to COPD exacerbation with superimposed pneumonia. She is seen resting in bed on the rehab floor. Nurses were alerted to her low blood pressure as well as worsening oxygenation. She is currently on 3 L nasal cannula. She endorses wheezing and cough after her recent thoracentesis. She has been seen by cardiology for elevated troponin with recommendation to continue medical management. Echo revealed high gradient across bioprosthetic valve. Stat chest x-ray on the floor shows worsening bilateral opacities alongside audible wheezing. Allergies No Known Allergies Allergy (Verified 07/27/24 14:29) Home Medications: Aspirin 81 mg PO DAILY 02/26/18 Gabapentin [Gralise] 300 mg PO BEDTIME 02/26/18 dilTIAZem HCL [Diltiazem 24Hr ER (LA)] 180 mg PO DAILY 05/31/18 Losartan Potassium 50 mg PO BEDTIME 06/22/20 Simvastatin 40 mg PO BEDTIME 07/21/22 Citalopram [Celexa*] 10 mg PO DAILY 02/18/24 Magnesium Oxide [Mag 0X*] 400 mg PO BID tab 08/04/24 Potassium Oral Tab [Klor-Con 10 mEq Tab*] 10 meq PO BID #60 tab 08/04/24 Ascorbic Acid [Vitamin C*] 500 mg PO BEDTIME 12/01/24 Cholecalciferol (Vitamin D3) [Vitamin D3] 1 tab PO DAILY 12/01/24 Albuterol Neb [Proventil 0.083% Neb Soln] 2.5 mg NEB Q6HP PRN amp 12/05/24 Furosemide [Lasix] 20 mg PO BIDL #60 tab 12/05/24 Hydrocodone 5/APAP 325 [[place] 5/325*] 1 tab PO Q6H PRN #0 tab 12/05/24 Ipratropium Neb [Atrovent*] 0.5 mg NEB [id number] PRN amp 12/05/24 Ronny [Ronny*] 1 pkt PO BID 12/05/24 oxyBUTYnin chloride [Ditropan Xl*] 15 mg PO DAILY tab.sa 12/05/24 Vibegron [Gemtesa] 75 mg PO DAILY 12/06/24 - Past Medical/Surgical History Diabetic: No -: Hypertension -: CAD -: Diastolic CHF with reduced EF -: Peripheral vascular disease -: Former smoker -: Breast cancer -: HLD -: dm -: afib -: HI -: bilateral mastectomy -: WATCHMAN - Social History Alcohol use: No CD- Drugs: No Caffeine use: Yes Review of Systems General: As per HPI Eyes: Unremarkable ENT: Unremarkable Respiratory: Cough, Shortness of Breath Cardiovascular: Unremarkable Gastrointestinal: Unremarkable Genitourinary: Unremarkable Musculoskeletal: Unremarkable Integumentary: Unremarkable Lymphatics: Unremarkable Physical Examination - Physical Exam General: In no apparent distress, Cachectic HEENT: Normocephalic, Other (Temporal wasting) Neck: Supple Respiratory: Diminished, Expiratory wheezes Cardiovascular: No edema, Other (Port) Capillary refill: <2 Seconds Gastrointestinal: Normal bowel sounds Integumentary: No rashes Neurological: Normal speech, Normal strength at 5/5 x4 extr Lymphatics: No axilla or inguinal lymphadenopathy Assessment and Plan - Plan Sepsis Multifocal pneumonia COPD exacerbation Acute on chronic diastolic heart failure Atrial fibrillation Hypotension Elevated troponin Leukocytosis Anemia Type 2 diabetes mellitus Pleural effusion Pulmonary hypertension History of transcatheter aortic valve implementation Admit to floor Obtain ABG Start IV cefepime and IV azithromycin Schedule breathing treatments every 6 hours Start IV steroids every 8 hours Appreciate cardiology help Continue to trend troponins Daily weights, strict I's and O's, low-sodium diet, fluid restriction to 2 L Continue Lasix twice daily Continue aspirin and statin Continue metoprolol Start sliding scale insulin [place] as needed for pain control Continue Gemtesa and oxybutynin Continue midodrine and dose with IV albumin DVT prophylaxis with SCDs - Advance Directives Does patient have a Living Will: No Does patient have a Durable POA for Healthcare: No
[2024-12-06 21:38] LABS: C-Reactive Protein 51.9 mg/L (<3.00)
[2024-12-06 21:45] LABS: Troponin High Sensitivity 310.1 pg/mL (<58.9)
[2024-12-06] MEDS: ATORVASTATIN 20 MG TAB PO SCH (23:09)
[2024-12-06] MEDS: IPRATROPIUM BROM 0.5MG/2.5ML NEB SCH (23:40)
[2024-12-06] MEDS: IPRATROPIUM BROM 0.5MG/2.5ML ONE (23:55)
[2024-12-06] MEDS: ALBUTEROL 2.5 MG/3 ML NEB SOL NEB SCH (23:55)
[2024-12-06] MEDS: ALBUTEROL 2.5 MG/3 ML NEB SOL ONE (23:55)
[2024-12-06] MEDS: FUROSEMIDE 40 MG/4 ML VIAL ONE (23:56)
[2024-12-06] MEDS: FUROSEMIDE 40 MG/4 ML VIAL IV ONE (23:58)
[2024-12-07 02:20] LABS: Blood O2 Saturation 75.5 % (92-98.5)
[2024-12-07 02:21] LABS: Arterial Blood Carboxyhemoglob 1.5 % (0-1.5); Blood Gas Oxyhemoglobin 73.8 % (94-97); Blood Gas THB 9.9 g/dl (12-18)
[2024-12-07 06:33] LABS: Absolute Lymphocytes (CBC) 0.5 K/uL (0.7-4.9); Absolute Monocytes 1.3 K/uL (0.1-1.3); Absolute Neutrophil 18.2 K/uL (1.8-8.0); Basophils % 0.2 % (0-1.3); Hematocrit 29.7 % (36.0-45.0); Hemoglobin 9.4 g/dL (12.0-15.0); Lymphocytes % 2.3 % (15.3-44.8); MCH 21.7 pg (27.0-35.0); MCHC 31.7 g/dL (32.0-36.0); MCV 68.6 fL (80-100); MPV 10.4 fL (7.6-11.3); Monocytes % 6.4 % (3.3-12.3); Neutrophils % 91.1 % (41.7-73.7); Nucleated Red Blood Cells % 0.1 % (0-0); Platelets 378 thou/uL (152-406); RBC Red Blood Cell Count 4.33 M/uL (3.86-4.86); Red Cell Distribution Width 17.2 % (12.1-15.2)
[2024-12-07 07:20] LABS: Troponin High Sensitivity 1263.3 pg/mL (<58.9)
[2024-12-07] MEDS: IPRATROPIUM BROM 0.5MG/2.5ML NEB SCH (07:56)
[2024-12-07] MEDS ORDERED: DILTIAZEM HCL 180 MG SR CAP PO SCH (09:00)
[2024-12-07] MEDS: VIBEGRON 75 MG PO SCH (09:00)
[2024-12-07] MEDS: FUROSEMIDE 20 MG TABLET PO SCH (09:00)
[2024-12-07 09:17] LABS: ALT/SGPT 16 U/L (13-56); AST/SGOT 28 U/L (15-37); Albumin 2.8 g/dL (3.4-5.0); Albumin/Globulin Ratio 0.9 (1.1-1.8); Alkaline Phosphatase 84 U/L (45-117); Anion Gap 10.9 mEq/L (5.0-15.0); BUN Blood Urea Nitrogen 80 mg/dL (7-18); Bicarbonate 31 mEq/L (21-32); Bilirubin Total 0.4 mg/dL (0.2-1.0); Globulin 3.1 g/dL (2.3-3.5); Glomerular Filtration Rate 32 ml/min (=/>90); Glucose Level 204 mg/dL (74-106); Potassium 4.9 mEq/L (3.5-5.1); Protein, Total 5.9 g/dL (6.4-8.2); Sodium Level 133 mEq/L (136-145)
[2024-12-07 09:22] LABS: Bilirubin Direct < 0.2 mg/dL (0-0.2); Bilirubin Indirect, Calculated 0.2 mg/dL (0.2-0.8)
[2024-12-07 09:23] LABS: Troponin High Sensitivity 1956.4 pg/mL (<58.9)
[2024-12-07 09:37] LABS: Differential Total Cells Count 100; Segmented Neutrophils 90 % (40-80)
[2024-12-07 09:38] LABS: Anisocytosis 1+; Blood Morphology Comment NOTED (NOT SEEN); Hypochromasia 1+; Lymphocytes 4 % (15-42); Microcytosis 1+; Monocytes 6 % (0-10); Platelet Estimate ADEQ; Platelets, Giant FEW
[2024-12-07 09:39] LABS: Ovalocytes SLIGHT; Polychromasia SLIGHT
[2024-12-07] MEDS: CEFEPIME 1 GM in NA CHLORIDE 0.9% 100 ML IV SCH (09:59)
[2024-12-07] MEDS: MIDODRINE HCL 5 MG TABLET PO SCH (09:59)
[2024-12-07] MEDS: ASPIRIN 81 MG CHEWABLE TABLET PO SCH (09:59)
[2024-12-07] MEDS: AZITHROMYCIN 250 MG TAB PO SCH (09:59)
[2024-12-07] MEDS: CITALOPRAM 10 MG TABLET PO SCH (09:59)
--- NOTE | 2024-12-07 11:03 | P.PN ---
Subjective Date of Service: 12/07/24 Subjective: No chest pain other than some discomfort from resp difficulty. c/o shortness of breath. No nausea or vomiting. No abdominal pain. No obvious bleeding. Looks comfortable in the bed. Objective: General appearance: Alert and comfortable CVS: Normal S1 and S2 Lungs: Clear to auscultation bilaterally Abdomen: Soft, bowel sounds present, no tenderness Extremities: No lower extremity edema Physical Examination - Vital Signs Temperature: 97.9 F Blood Pressure: 74/46 Pulse: 100 Respirations: 18 Pulse Ox (%): 100 - Studies Laboratory Data (last 24 hrs) 12/07/24 12/07/24 12/07/24 08:46 06:15 06:15 WBC 20.00 H Hgb 9.4 L Hct 29.7 L Plt Count 378 Sodium 133 L Potassium 4.9 BUN 80 H Creatinine 1.56 H Glucose 204 H Total Bilirubin 0.4 AST 28 ALT 16 Alkaline Phosphatase 84 Triglycerides 59 Cholesterol 93 HDL Cholesterol 53 Cholesterol/HDL Ratio 1.75 12/06/24 12/06/24 Unknown 19:43 WBC Hgb Hct Plt Count Sodium Cancelled Cancelled Potassium Cancelled Cancelled BUN Cancelled Cancelled Creatinine Cancelled Cancelled Glucose Cancelled Cancelled Total Bilirubin Cancelled Cancelled AST Cancelled Cancelled ALT Cancelled Cancelled Alkaline Phosphatase Cancelled Cancelled Triglycerides Cholesterol HDL Cholesterol Cholesterol/HDL Ratio Assessment And Plan - Plan 1. Sepsis with Multifocal pneumonia: cont ABX - Will give small fluid bolus, start midodrine, if the blood pressure does not improve, will plan to transfer to ICU. 2. COPD exacerbation: Continue nebs, steroids and antibiotics., Pulmonary consult requested. 3. Acute on chronic systolic heart failure: Hold diuretics as blood pressure soft, creatinine trending up, cardiology consult requested. Recent echo showed 25 to 30% EF with severe pulmonary hypertension. 5. Atrial fibrillation 6. Hypotension: Hold diuretics, small fluid bolus, p.o. midodrine, if the blood pressure does not improve, will transfer to ICU and start pressors. 7. Elevated troponin: Start heparin drip, cardiology consult requested. 8. Leukocytosis: Continue antibiotics, follow-up on cultures. 9. Hyponatremia: Monitor closely. 10. Chronic anemia: Monitor closely. 11. Acute kidney injury: Hold diuretics, gentle fluids, monitor renal function closely. 12. Type 2 diabetes mellitus: Blood sugars noted, adjusted insulin. 13. Severe pulmonary hypertension management as per cardiology and pulmonary 14. History of transcatheter aortic valve implementation Plan discussed with patient and nursing staff, discussed with Dr. Shepard. Critically ill patient, time spent today greater than 45 minutes of critical care time.
[2024-12-07] MEDS: MIDODRINE HCL 5 MG TABLET PO ONE (11:13)
[2024-12-07] MEDS: NA CHLORIDE 0.9% 250 ML IV ONE (11:14)
[2024-12-07] MEDS ORDERED: D10W 125 ML IV PRN (11:34)
[2024-12-07] MEDS ORDERED: GLUCAGON 1 MG/VIAL IM PRN (11:34)
--- NOTE | 2024-12-07 12:10 | P.PN ---
Subjective Date of Service: 12/07/24 Subjective: No new changes, No C/O voiced, Tolerating diet, Ambulating, Improving Review of Systems 10-point ROS is otherwise unremarkable Physical Examination - Vital Signs Temperature: 97.9 F Blood Pressure: 74/46 Pulse: 100 Respirations: 18 Pulse Ox (%): 100 - Physical Exam General: Alert, In no apparent distress HEENT: Atraumatic, PERRLA, EOMI Neck: Supple, JVD not distended Respiratory: Clear to auscultation bilaterally, Normal air movement Cardiovascular: Regular rate/rhythm, Normal S1 S2 Gastrointestinal: Normal bowel sounds, No tenderness Musculoskeletal: No tenderness Integumentary: No rashes Neurological: Normal speech, Normal tone, Normal affect Lymphatics: No axilla or inguinal lymphadenopathy - Studies Laboratory Data (last 24 hrs) 12/07/24 12/07/24 12/07/24 08:46 06:15 06:15 WBC 20.00 H Hgb 9.4 L Hct 29.7 L Plt Count 378 Sodium 133 L Potassium 4.9 BUN 80 H Creatinine 1.56 H Glucose 204 H Total Bilirubin 0.4 AST 28 ALT 16 Alkaline Phosphatase 84 Triglycerides 59 Cholesterol 93 HDL Cholesterol 53 Cholesterol/HDL Ratio 1.75 12/06/24 12/06/24 Unknown 19:43 WBC Hgb Hct Plt Count Sodium Cancelled Cancelled Potassium Cancelled Cancelled BUN Cancelled Cancelled Creatinine Cancelled Cancelled Glucose Cancelled Cancelled Total Bilirubin Cancelled Cancelled AST Cancelled Cancelled ALT Cancelled Cancelled Alkaline Phosphatase Cancelled Cancelled Triglycerides Cholesterol HDL Cholesterol Cholesterol/HDL Ratio Medications List Reviewed: Yes Assessment And Plan - Current Problems (Diagnosis) (1) Acute on chronic diastolic heart failure Current Visit: No Status: Acute Plan: patient work of breathing is worse. recommend starting patient on IV Lasix drip at 2.5 mg/hr recommend transfer to ICU for more pressors support. continue to monitor input and output. (2) History of transcatheter aortic valve implantation (WILLIAM) Current Visit: No Status: Acute Plan: patient having severe stenosis of bioprothetic valve and will need to be eval uated for valve in valve. (3) NSTEMI (non-ST elevated myocardial infarction) Current Visit: No Status: Acute Plan: Patient troponin trended up, patient denies chest pain, most likely secondary to severe and CHF, continue to trend troponin until peak and down trending. agree with Heparin drip at this time continue ASA 81 mg daily statins
[2024-12-07 12:12] LABS: Absolute Lymphocytes (CBC) 0.6 K/uL (0.7-4.9); Absolute Monocytes 1.3 K/uL (0.1-1.3); Absolute Neutrophil 16.5 K/uL (1.8-8.0); Basophils % 0.3 % (0-1.3); Eosinophils % 0.1 % (0-4.4); Hematocrit 28.7 % (36.0-45.0); Hemoglobin 8.9 g/dL (12.0-15.0); MCH 21.2 pg (27.0-35.0); MCHC 30.9 g/dL (32.0-36.0); MCV 68.6 fL (80-100); MPV 10.7 fL (7.6-11.3); Monocytes % 7.2 % (3.3-12.3); Neutrophils % 89.4 % (41.7-73.7); Platelets 365 thou/uL (152-406); RBC Red Blood Cell Count 4.18 M/uL (3.86-4.86); Red Cell Distribution Width 17.5 % (12.1-15.2)
[2024-12-07 12:33] LABS: PT Prothrombin Time 18.1 SECONDS (10-13.0); Protime INR 1.62
[2024-12-07 12:38] LABS: PTT, Activated Partial Thromb 171.8 SECONDS (27.2-37.4)
[2024-12-07] MEDS: VANCOMYCIN 1 GM in NA CHLORIDE 0.9% 250 ML IVPB SCH (13:07)
[2024-12-07] MEDS: HEPARIN/D5W 25,000 UNIT/500 ML BAG IV PRN (14:08)
[2024-12-07 14:10] VITALS: BMI 20.4
[2024-12-07] MEDS: NOREPINEPHRINE BITARTRATE/D5W 4 MG/250 ML BAG IV SCH (14:56)
[2024-12-07] MEDS: FUROSEMIDE 100 MG in NA CHLORIDE 0.9% 90 ML IV SCH (14:56)
[2024-12-07] MEDS: INSULIN REGULAR (HUMAN) 100 UNIT/ML SQ SCH (15:13)
[2024-12-07 19:00] LABS: Specific Gravity 1.017 (1.005-1.030); Urine Bacteria <20 /HPF (<20); Urine Bilirubin NEGATIVE (Negative); Urine Blood Negative (Negative); Urine Clarity Turbid (Clear); Urine Color Yellow (Yellow); Urine Culture Reflex Order NOT NEEDED; Urine Glucose NEGATIVE (Negative); Urine Ketones NEGATIVE (Negative); Urine Microscopic Reflex YN ORDER UMIC; Urine Nitrite NEGATIVE (Negative); Urine Protein NEGATIVE (Negative); Urine RBC <5 /HPF (None Seen); Urine Urobilinogen Normal (Normal); Urine WBC <5 /HPF (<5); Urine Yeast (Budding) Trace /HPF (None Seen)
[2024-12-07] MEDS ORDERED: HEPARIN 5000 UNIT/ML 1 ML VIAL IV PRN (22:15)
[2024-12-07] MEDS: HEPARIN 5000 UNIT/ML 1 ML VIAL IV ONE (22:24)
[2024-12-08] MEDS: TRAZODONE 50 MG TABLET PO PRN (00:09)
[2024-12-08] MEDS: HYDROCODONE/APAP 5/325 MG TAB PO PRN (00:12)
[2024-12-08] MEDS: ACETAMINOPHEN 500 MG TAB PO PRN (05:06)
[2024-12-08 06:10] LABS: Absolute Basophils 0.1 K/uL (0-0.5); Absolute Lymphocytes (CBC) 0.5 K/uL (0.7-4.9); Absolute Monocytes 3.7 K/uL (0.1-1.3); Absolute Neutrophil 28.1 K/uL (1.8-8.0); Basophils % 0.2 % (0-1.3); Hematocrit 28.4 % (36.0-45.0); Hemoglobin 9.1 g/dL (12.0-15.0); Lymphocytes % 1.7 % (15.3-44.8); MCH 21.6 pg (27.0-35.0); MCHC 31.9 g/dL (32.0-36.0); MCV 67.6 fL (80-100); MPV 10.7 fL (7.6-11.3); Monocytes % 11.3 % (3.3-12.3); Neutrophils % 86.8 % (41.7-73.7); Platelets 418 thou/uL (152-406); Red Cell Distribution Width 18.1 % (12.1-15.2)
[2024-12-08 06:28] LABS: Anion Gap 14.3 mEq/L (5.0-15.0); Magnesium 2.5 mg/dL (1.6-2.4); Phosphorus 3.4 mg/dL (2.5-4.9); Potassium 4.3 mEq/L (3.5-5.1)
[2024-12-08 06:33] LABS: Troponin High Sensitivity 3121.7 pg/mL (<58.9)
[2024-12-08] MEDS: VIBEGRON 75 MG PO SCH (09:00)
[2024-12-08 10:11] LABS: Anisocytosis 1+; Band Neutrophils 1 % (0-1); Blood Morphology Comment NOTED (NOT SEEN); Differential Total Cells Count 100; Hypochromasia 1+; Lymphocytes 1 % (15-42); Microcytosis 1+; Monocytes 10 % (0-10); Platelet Estimate INCR; Platelets Clumped FEW PRESENT; Platelets, Giant FEW PRESENT; Polychromasia SLIGHT; Segmented Neutrophils 88 % (40-80)
[2024-12-08 10:12] LABS: Ovalocytes SLIGHT
--- NOTE | 2024-12-08 11:14 | P.PN ---
Subjective Date of Service: 12/08/24 Subjective: New changes (Patient still requiring vasopressor and oxygen, patient had multiple runs of RVR overnight with possible PEA arrest for few seconds.) Review of Systems 10-point ROS is otherwise unremarkable Physical Examination - Vital Signs Temperature: 98.7 F Blood Pressure: 100/21 Pulse: 61 Respirations: 20 Pulse Ox (%): 100 - Physical Exam General: Alert, In no apparent distress HEENT: Atraumatic, PERRLA, EOMI Neck: Supple, JVD not distended Respiratory: Diminished, Crackles/rales Cardiovascular: Regular rate/rhythm, Normal S1 S2, Systolic murmur (at aortic area) Gastrointestinal: Normal bowel sounds, No tenderness Musculoskeletal: No tenderness Integumentary: No rashes Neurological: Normal speech, Normal tone, Normal affect Lymphatics: No axilla or inguinal lymphadenopathy - Studies Laboratory Data (last 24 hrs) 12/08/24 12/08/24 12/08/24 05:02 05:02 05:02 WBC 32.40 H Hgb 9.1 L Hct 28.4 L Plt Count 418 H PT INR APTT 35.2 Sodium 132 L Potassium 4.3 BUN 87 H Creatinine 1.45 H Glucose 227 H Phosphorus 3.4 Magnesium 2.5 H 12/08/24 12/07/24 12/07/24 01:53 23:00 21:00 WBC Hgb Hct Plt Count PT INR APTT 70.5 H Cancelled Cancelled Sodium Potassium BUN Creatinine Glucose Phosphorus Magnesium 12/07/24 12/07/24 12/07/24 20:35 15:08 11:45 WBC Hgb Hct Plt Count PT 18.1 H INR 1.62 APTT 33.0 34.4 171.8 H* Sodium Potassium BUN Creatinine Glucose Phosphorus Magnesium 12/07/24 12/07/24 11:45 11:00 WBC 18.50 H Hgb 8.9 L Hct 28.7 L Plt Count 365 PT INR APTT Cancelled Sodium Potassium BUN Creatinine Glucose Phosphorus Magnesium Medications List Reviewed: Yes Assessment And Plan - Current Problems (Diagnosis) (1) Acute on chronic diastolic heart failure Current Visit: No Status: Acute Plan: patient work of breathing is worse. had a long discussion with patient and family about her prognosis, she is weak, she got severe valve prosthesis dysfunction with possible OR and drop in EF, also she have significant raise in WBC which can be secondary to PNA, she is requiring more Oxygen and pressors with very low diastolic pressure, patient overall prognosis is poor and they will decide about aggressive measures vs. comfort care. continue IV Lasix drip at 2.5 mg/hr continue levophed continue to monitor input and output. (2) History of transcatheter aortic valve implantation (WILLIAM) Current Visit: No Status: Acute Plan: patient having severe stenosis of bioprothetic valve and will need to be evaluated for valve in valve. (3) NSTEMI (non-ST elevated myocardial infarction) Current Visit: No Status: Acute Plan: Patient troponin trended up, patient denies chest pain, most likely secondary to severe and CHF, vs unstable plaque. Patient typically will need coronary angiogram at this point but due to age, fra ility and leukocytosis, now is not the perfect time to do coronary angiogram, beside our skilled labor is down. agree with Heparin drip at this time continue ASA 81 mg daily statins
[2024-12-08] MEDS: NOREPINEPHRINE 16 MG in Dextrose 5%-Water 500 ML IV SCH (11:31)
--- NOTE | 2024-12-08 12:09 | EKG ---
Test Date: 2024-12-08 Test Time: 03:01:40 Photo Manager: GARY MEASUREMENT RESULTS: Intervals: Rate: 129 ND: 142 QRSD: 140 QT: 312 QTc: 457 [place]: P: 49 ND: 142 QRS: -56 T: 123 INTERPRETIVE STATEMENTS: Sinus tachycardia Left axis deviation Left ventricular hypertrophy with QRS widening T wave abnormality, consider inferolateral ischemia Abnormal ECG Compared to ECG 12/06/2024 05:12:25 Left ventricular hypertrophy now present T-wave abnormality now present Possible ischemia now present Sinus rhythm no longer present Left bundle-branch block no longer present Electronically Signed On 12-08-24 12:08:01 CDT by Kendrick Shepard
--- NOTE | 2024-12-08 12:25 | P.CNS ---
Date of Consult: 12/08/24 Reason for Consult: Shock right lower lobe pneumonia Chief Complaint: Shortness of breath cough congestion History of Present Illness: Patient is 89 years of age was in rehab transferred from the floor with hypotension patient was in A-fib currently on Levophed no prior history of pulmonary disorders found to have a right lower lobe infiltrate history of CHF with preserved ejection fraction history of breast cancer noted to have worsening oxygenation and low blood pressure in the rehab unit patient's troponins were elevated Allergies No Known Allergies Allergy (Verified 07/27/24 14:29) Home Medications: Aspirin 81 mg PO DAILY 02/26/18 Gabapentin [Gralise] 300 mg PO BEDTIME 02/26/18 dilTIAZem HCL [Diltiazem 24Hr ER (LA)] 180 mg PO DAILY 05/31/18 Losartan Potassium 50 mg PO BEDTIME 06/22/20 Simvastatin 40 mg PO BEDTIME 07/21/22 Citalopram [Celexa*] 10 mg PO DAILY 02/18/24 Magnesium Oxide [Mag 0X*] 400 mg PO BID tab 08/04/24 Potassium Oral Tab [Klor-Con 10 mEq Tab*] 10 meq PO BID #60 tab 08/04/24 Ascorbic Acid [Vitamin C*] 500 mg PO BEDTIME 12/01/24 Cholecalciferol (Vitamin D3) [Vitamin D3] 1 tab PO DAILY 12/01/24 Albuterol Neb [Proventil 0.083% Neb Soln] 2.5 mg NEB Q6HP PRN amp 12/05/24 Furosemide [Lasix] 20 mg PO BIDL #60 tab 12/05/24 Hydrocodone 5/APAP 325 [[place] 5/325*] 1 tab PO Q6H PRN #0 tab 12/05/24 Ipratropium Neb [Atrovent*] 0.5 mg NEB [id number] PRN amp 12/05/24 Ronny [Ronny*] 1 pkt PO BID 12/05/24 oxyBUTYnin chloride [Ditropan Xl*] 15 mg PO DAILY tab.sa 12/05/24 Vibegron [Gemtesa] 75 mg PO DAILY 12/06/24 - Past Medical/Surgical History Diabetic: No -: Hypertension -: CAD -: Diastolic CHF with reduced EF -: Peripheral vascular disease -: Former smoker -: Breast cancer -: HLD -: dm -: afib -: MO -: bilateral mastectomy -: 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 - Social History Alcohol use: No CD- Drugs: No Caffeine use: Yes Review of Systems 10-point ROS is otherwise unremarkable General: Weakness Respiratory: Cough, Shortness of Breath Physical Examination Temp Pulse Resp BP Pulse Ox 98.7 F 61 20 100/21 L 100 12/08/24 11:15 12/08/24 11:15 12/08/24 11:15 12/08/24 11:15 12/08/24 11:15 General: Alert, Oriented x3 HEENT: Atraumatic Neck: Supple Respiratory: Clear to auscultation bilaterally, Diminished Gastrointestinal: Normal bowel sounds, Soft and benign, Non-distended Laboratory Data (last 24 hrs) 12/08/24 12/08/24 12/08/24 05:02 05:02 05:02 WBC 32.40 H Hgb 9.1 L Hct 28.4 L Plt Count 418 H PT INR APTT 35.2 Sodium 132 L Potassium 4.3 BUN 87 H Creatinine 1.45 H Glucose 227 H Phosphorus 3.4 Magnesium 2.5 H 12/08/24 12/07/24 12/07/24 01:53 23:00 21:00 WBC Hgb Hct Plt Count PT INR APTT 70.5 H Cancelled Cancelled Sodium Potassium BUN Creatinine Glucose Phosphorus Magnesium 12/07/24 12/07/24 12/07/24 20:35 15:08 11:45 WBC Hgb Hct Plt Count PT 18.1 H INR 1.62 APTT 33.0 34.4 171.8 H* Sodium Potassium BUN Creatinine Glucose Phosphorus Magnesium 12/07/24 12/07/24 11:45 11:00 WBC 18.50 H Hgb 8.9 L Hct 28.7 L Plt Count 365 PT INR APTT Cancelled Sodium Potassium BUN Creatinine Glucose Phosphorus Magnesium - Problems (1) Shock Current Visit: Yes Status: Acute Plan: Patient is 89 years of age admitted with hypotension right lower lobe pneumonia rapid A-fib patient has severe dysfunction in her left ventricular function ejection fraction was initially normal has declined significantly with secondary pulmonary hypertension white count is significantly elevated patient is currently on a Lasix drip very alert oriented responsive oxygenation is s atisfactory patient's troponin is also significantly elevated prognosis poor trial of steroids DC azithromycin
[2024-12-08] MEDS: HYDROCORTISONE SUC 100 MG INJ IV SCH (13:19)
--- NOTE | 2024-12-08 13:29 | P.PN ---
Subjective Date of Service: 12/08/24 Chief Complaint: Shortness of breath cough congestion Subjective: No chest pain. c/o shortness of breath. No nausea or vomiting. No abdominal pain. No obvious bleeding. Looks uncomfortable in the bed from resp difficulty. Objective: General appearance: Alert and uncomfortable CVS: Normal S1 and S2 Lungs: Clear to auscultation bilateral anteriorly Abdomen: Soft, bowel sounds present, no tenderness Extremities: No lower extremity edema Physical Examination - Vital Signs Temperature: 98.8 F Blood Pressure: 101/20 Pulse: 62 Respirations: 15 Pulse Ox (%): 98 - Studies Laboratory Data (last 24 hrs) 12/08/24 12/08/24 12/08/24 05:02 05:02 05:02 WBC 32.40 H Hgb 9.1 L Hct 28.4 L Plt Count 418 H APTT 35.2 Sodium 132 L Potassium 4.3 BUN 87 H Creatinine 1.45 H Glucose 227 H Phosphorus 3.4 Magnesium 2.5 H 12/08/24 12/07/24 12/07/24 01:53 23:00 21:00 WBC Hgb Hct Plt Count APTT 70.5 H Cancelled Cancelled Sodium Potassium BUN Creatinine Glucose Phosphorus Magnesium 12/07/24 12/07/24 12/07/24 20:35 15:08 11:00 WBC Hgb Hct Plt Count APTT 33.0 34.4 Cancelled Sodium Potassium BUN Creatinine Glucose Phosphorus Magnesium Medications List Reviewed: Yes Assessment And Plan - Plan 1. Sepsis with Multifocal pneumonia: cont ABX - cont pressors 2. COPD exacerbation: Continue nebs, steroids and antibiotics., Pulmonary consult requested. 3. Acute on chronic systolic heart failure: Hold diuretics as blood pressure soft, creatinine trending up, cardiology consult requested, appreciate recs. Recent echo showed 25 to 30% EF with severe pulmonary hypertension. 5. Atrial fibrillation 6. Hypotension: Hold diuretics, continue pressors. 7. Elevated troponin: Started on heparin drip, cardiology consult on board. 8. Leukocytosis: Continue antibiotics, follow-up on cultures. 9. Hyponatremia: Monitor closely. 10. Chronic anemia: Monitor closely. 11. Acute kidney injury: Hold diuretics, monitor renal function closely. 12. Type 2 diabetes mellitus: Blood sugars noted, adjusted insulin. 13. Severe pulmonary hypertension management as per cardiology and pulmonary 14. History of transcatheter aortic valve implementation Plan discussed with patient and nursing staff, discussed with Dr. Shepard. Discussed with nursing staff and multiple family members at bedside, patient would like to be DNR, she is considering hospice but would like to discuss with cardiology before making the final addition. Critically ill patient, time spent today greater than 50 minutes of critical care time.
[2024-12-08] MEDS: MORPHINE 2 MG/ML SYR IV PRN (13:34)
[2024-12-08] MEDS: ONDANSETRON 4 MG/2 ML VIAL IV PRN (13:34)
[2024-12-08] MEDS ORDERED: FUROSEMIDE 100 MG in NA CHLORIDE 0.9% 90 ML IV SCH (14:00)
[2024-12-08] MEDS: INSULIN GLARGINE 100 UNIT/ML SQ SCH (14:53)
[2024-12-08] MEDS: FUROSEMIDE 100 MG in NA CHLORIDE 0.9% 90 ML IV SCH (14:54)
[2024-12-08] MEDS: HEPARIN 5000 UNIT/ML 1 ML VIAL IV PRN (15:33)
[2024-12-08 16:53] VITALS: O2SAT 98
[2024-12-08 16:56] VITALS: TEMP 98.2
[2024-12-08 17:36] VITALS: BP 49/15
[2024-12-08] MEDS ORDERED: ENSURE ENLIVE 237 ML CAN PO SCH (21:00)
--- NOTE | 2024-12-09 07:21 | P.DS ---
Admission Date: 12/06/24 Discharge Date: 12/09/24 Disposition: Discharge Condition: Reason for Admission: Shortness of breath cough congestion Hospital Course: 1. Sepsis with Multifocal pneumonia, Shock secondary to sepsis and CHF 2. Acute on chronic systolic heart failure: Recent echo showed 25 to 30% EF with severe pulmonary hypertension. 3. NSTEMI 4. COPD 5. Atrial fibrillation 6. History of transcatheter aortic valve implementation 7. Hyponatremia: Monitor closely. 8. Chronic anemia: Monitor closely. 9. Acute kidney injury 10. Type 2 diabetes mellitus: Blood sugars noted, adjusted insulin. 11. Severe pulmonary hypertension management as per cardiology and pulmonary Hospital course: 89-year-old patient admitted with sepsis secondary to pneumonia, she also has acute heart failure and non-ST elevation IN, started on antibiotics, heparin and diuretics, her blood pressure is dropping, she was requiring pressor support, transferred to ICU, due to multiple comorbidities and poor prognosis, we had a discussion with the patient and family, they decided to go with comfort cares, patient was started on comfort cares, and she at 1758 on 12/08/2024. Vital Signs/Physical Exam: Temp Pulse Resp BP Pulse Ox 98.2 F 52 16 49/15 L 98 12/08/24 16:00 12/08/24 17:00 12/08/24 17:00 12/08/24 17:00 12/08/24 16:44 Laboratory Data at Discharge: WBC 32.40 thou/uL (4.3-10.9) H 12/08/24 05:02 Hgb 9.1 g/dL (12.0-15.0) L 12/08/24 05:02 Hct 28.4 % (36.0-45.0) L 12/08/24 05:02 Plt Count 418 thou/uL (152-406) H 12/08/24 05:02 PT 18.1 SECONDS (10-13.0) H 12/07/24 11:45 INR 1.62 12/07/24 11:45 APTT Cancelled 12/08/24 20:00 Sodium 132 mEq/L (136-145) L 12/08/24 05:02 Potassium 4.3 mEq/L (3.5-5.1) 12/08/24 05:02 BUN 87 mg/dL (7-18) H 12/08/24 05:02 Creatinine 1.45 mg/dL (0.55-1.02) H 12/08/24 05:02 Glucose 227 mg/dL (74-106) H 12/08/24 05:02 Phosphorus 3.4 mg/dL (2.5-4.9) 12/08/24 05:02 Magnesium 2.5 mg/dL (1.6-2.4) H 12/08/24 05:02 Total Bilirubin 0.4 mg/dL (0.2-1.0) 12/07/24 08:46 AST 28 U/L (15-37) 12/07/24 08:46 ALT 16 U/L (13-56) 12/07/24 08:46 Alkaline Phosphatase 84 U/L (45-117) 12/07/24 08:46 Triglycerides 59 mg/dL (<150) 12/07/24 06:15 Cholesterol 93 mg/dL (<200) 12/07/24 06:15 HDL Cholesterol 53 mg/dL (40-60) 12/07/24 06:15 Cholesterol/HDL Ratio 1.75 12/07/24 06:15 Home Medications: Aspirin 81 mg PO DAILY 02/26/18 Gabapentin [Gralise] 300 mg PO BEDTIME 02/26/18 dilTIAZem HCL [Diltiazem 24Hr ER ([place])] 180 mg PO DAILY 05/31/18 Losartan Potassium 50 mg PO BEDTIME 06/22/20 Simvastatin 40 mg PO BEDTIME 07/21/22 Citalopram [Celexa*] 10 mg PO DAILY 02/18/24 Magnesium Oxide [Mag 0X*] 400 mg PO BID tab 08/04/24 Potassium Oral Tab [Klor-Con 10 mEq Tab*] 10 meq PO BID #60 tab 08/04/24 Ascorbic Acid [Vitamin C*] 500 mg PO BEDTIME 12/01/24 Cholecalciferol (Vitamin D3) [Vitamin D3] 1 tab PO DAILY 12/01/24 Albuterol Neb [Proventil 0.083% Neb Soln] 2.5 mg NEB Q6HP PRN amp 12/05/24 Furosemide [Lasix] 20 mg PO BIDL #60 tab 12/05/24 Hydrocodone 5/APAP 325 [[place] 5/325*] 1 tab PO Q6H PRN #0 tab 12/05/24 Ipratropium Neb [Atrovent*] 0.5 mg NEB [id number] PRN amp 12/05/24 Ronny [Ronny*] 1 pkt PO BID 12/05/24 oxyBUTYnin chloride [Ditropan Xl*] 15 mg PO DAILY tab.sa 12/05/24 Vibegron [Gemtesa] 75 mg PO DAILY 12/06/24 Physician Discharge Instructions: [facility] Tax Specialist Call Shala Griggs RN at [phone] for questions or concerns after discharge. Expect a call within 1-2 business days of discharge. Alternate: Nelsy Vance RN at [phone] Followup: Mike Joya, [Primary Care Provider] -
== END 2024-12-08 21:05 | disposition expired | DRG 871 ==
LOC: UNDOADMIN 20:41 → 2ND 20:41 → 3RD-ICU 12-07 13:27
PROVIDERS: ADMIT Family Medicine; ATTEND Hospitalist
PROC: 3E033XZ Introduction of Vasopressor into Peripheral Vein, Percutaneous Approach (ICD-10-PCS; principal; 2024-12-07)
PROC: 4A033R1 Measurement of Arterial Saturation, Peripheral, Percutaneous Approach (ICD-10-PCS; 2024-12-07)
PROC: 5A09457 Assistance with Respiratory Ventilation, 24-96 Consecutive Hours, Continuous Positive Airway Pressure (ICD-10-PCS; 2024-12-07)
PROC: 0T9B70Z Drainage of Bladder with Drainage Device, Via Natural or Artificial Opening (ICD-10-PCS; 2024-12-07)
DX: A41.9 Sepsis, unspecified organism (principal); I21.A1 Myocardial infarction type 2; J18.9 Pneumonia, unspecified organism; I50.33 Acute on chronic diastolic (congestive) heart failure; R65.21 Severe sepsis with septic shock; J44.1 Chronic obstructive pulmonary disease with (acute) exacerbation; R64 Cachexia; E87.1 Hypo-osmolality and hyponatremia; N17.9 Acute kidney failure, unspecified; J44.0 Chronic obstructive pulmonary disease with (acute) lower respiratory infection; I11.0 Hypertensive heart disease with heart failure; I48.91 Unspecified atrial fibrillation; D64.9 Anemia, unspecified; E11.9 Type 2 diabetes mellitus without complications; I27.20 Pulmonary hypertension, unspecified; I25.2 Old myocardial infarction; I25.10 Atherosclerotic heart disease of native coronary artery without angina pectoris; Z66 Do not resuscitate; Z85.3 Personal history of malignant neoplasm of breast; Z90.13 Acquired absence of bilateral breasts and nipples; Z79.82 Long term (current) use of aspirin; Z79.899 Other long term (current) drug therapy
CPT/HCPCS: 36415; 36600; 80048; 80061; 80076; 81001; 82533; 82805; 82947; 83735; 83880; 84100; 84145; 84443; 84484; 85025; 85610; 85730; 86140; 93005; 94660; 94760; J0692; J1644; J1720; J1815; J1938; J2270; J2405; J3370; J7050; J7060; J7613; J7644